=== PATIENT | female | born 1955 | race Caucasian/White ===

== ENCOUNTER 2024-10-23 04:36 | Emergency (ER) | payer MEDICARE, MEDICAID, SELFPAY ==
[2024-10-23] VITALS (9 sets, daily range): BP systolic 95–132; BP diastolic 57–81; PULSE 67–87; RESP 14–18; TEMP 36.5–37.3; O2SAT 94–100; BMI 33.5
--- NOTE | 2024-10-23 04:52 | EDNOTE_ITS ---
ED General RME/HPI General Chief complaint: Shortness of Breath/Dyspnea Stated complaint: SOB Time Seen by Provider: 10/23/24 04:49 Arrival date/time: 10/23/24 04:36 RME / HPI RME / HPI narrative: This section includes all my notes and documentations, including HPI, PE, and ED course. Steven Luz MD HPI: 69yo female with pmhx chronic respiratory failure with hypoxia, s/p tracheostomy, ventilator dependent, s/p G-tube placement, CHF, COPD brought in from subacute presents to the ED for a chief complaint of hypoxia. Per charge nurse, the patient was given Xanax 45 minutes ago and desatted to the 80s 20 minutes later and SNF staff was concerned, so they sent the patient over for evaluation. No cough, fever, chills or any other associated symptoms. No other complaints reported. ROS: Respiratory: negative except as documented in HPI. Gastrointestinal: negative except as documented in HPI. Genitourinary: negative except as documented in HPI. Musculoskeletal: negative except as documented in HPI. Skin: negative except as documented in HPI. Neurological: negative except as documented in HPI. Physical Exam: General: Alert and oriented. No acute distress. Eyes: Conjunctivae and lids clear. ENT: No nasal congestion. Neck: Supple. Heart: RRR. Lungs: No respiratory distress. Severely diminished air movement with scattered wheezing. Legs: No clubbing, cyanosis, edema. Skin: Warm and dry. Neuro: Alert and oriented X 3. I ordered Solu-Medrol and DuoNeb and diagnostic tests. At 6 AM, the care of the patient was transferred to Dr. Pena. Steven Luz MD Related Data Home Medications ?Medication ?Instructions ?Recorded ?Confirmed amiodarone 200 mg tablet 200 mg PO QDAY 02/14/24 06/30/24 famotidine 20 mg tablet 20 mg PO BID 02/14/24 06/30/24 midodrine 10 mg tablet 10 mg PO QID 02/14/24 06/30/24 acetaminophen 325 mg tablet 650 mg PO Q6H PRN Fever Or Pain 02/15/24 02/15/24 (Tylenol) alprazolam 0.5 mg tablet 0.5 mg PO Q8H PRN Anxiety 02/15/24 02/15/24 guaifenesin 100 mg/5 mL oral syrup 100 mg PO Q6H PRN Cough 02/15/24 06/30/24 ascorbic acid (vitamin C) 500 mg 500 mg PO BID 06/30/24 06/30/24 tablet (Vitamin C) bisacodyl 10 mg rectal suppository 10 mg PA QDAY PRN Constipation 06/30/24 06/30/24 (Dulcolax (bisacodyl)) budesonide 0.5 mg/2 mL suspension 0.5 mg inhalation BID 06/30/24 06/30/24 for nebulization (Pulmicort) guaifenesin 100 mg/5 mL oral 200 mg PO Q6H PRN Cough 06/30/24 06/30/24 liquid (Nilsa-Tussin) hydrocodone 5 mg-acetaminophen 325 1 tab PO Q8H PRN Pain 06/30/24 06/30/24 mg tablet ipratropium 0.5 mg-albuterol 3 mg 3 ml inhalation Q4H PRN Wheezing 06/30/24 06/30/24 (2.5 mg base)/3 mL nebulization soln multivitamin 1 tab PO QAM 06/30/24 06/30/24 ondansetron HCl 4 mg tablet 4 mg PO Q6H PRN Nausea 06/30/24 06/30/24 sennosides 8.6 mg tablet (senna) 8.6 mg PO BID 06/30/24 06/30/24 vitamin B complex 1 tab PO QDAY 06/30/24 06/30/24 Previous Rx's ?Medication ?Instructions ?Recorded cephalexin 500 mg capsule 500 mg PO QID #20 caps 08/11/24 Allergies Allergy/AdvReac Type Severity Reaction Status Date / Time No Known Allergies Allergy Verified 06/30/24 14:49 Review of Systems Review of Systems Systems Reviewed: All systems reviewed, normal except as documented ED Exam Narrative Physical exam: As noted in HPI. Course Course Course Narrative: CXR is ordered for determining the etiology of hypoxia. Quality Measures none Orders Category Date Time Status Bedside COVID-19 Antigen Test NOW Care 10/23/24 04:55 Active Bedside Influenza A&B Antigen Test NOW Care 10/23/24 04:55 Completed EKG (ED ONLY) *Do not use* NOW Care 10/23/24 04:55 Completed Saline [Insert IV] NOW Care 10/23/24 04:55 Active EKG (ED Only) Stat Exams 10/23/24 04:55 Draft XR chest 1V portable Stat Exams 10/23/24 04:55 Ordered ABG [Arterial Blood Gas] Stat Lab 10/23/24 05:12 Completed BNP [B-Type Natriuretic Peptide] Stat Lab 10/23/24 04:56 Ordered CBC Stat Lab 10/23/24 04:56 Ordered CMP [Comprehensive Metabolic Panel] Stat Lab 10/23/24 04:56 Ordered D-Dimer Stat Lab 10/23/24 04:56 Ordered Magnesium Stat Lab 10/23/24 04:56 Ordered Troponin I Stat Lab 10/23/24 04:56 Ordered UA [Urinalysis] Stat Lab 10/23/24 05:17 Ordered Albuterol/Ipratr Rt Maranda [Duoneb Rt Maranda] Med 10/23/24 04:55 Discontinued 3 ml INH X1 ONE MethylPREDNISolone.* [SoluMEDROL Inj] Med 10/23/24 04:55 Discontinued 125 mg IVP X1 ONE Mechanical [Volume Ventilator] Stat RT 10/23/24 Active Vital Signs Vital signs: Vital Signs Temperature 97.7 F 10/23/24 04:39 Pulse Rate 87 10/23/24 04:39 Respiratory Rate 16 10/23/24 04:39 Blood Pressure 132/75 H 10/23/24 04:39 Pulse Oximetry (%) 98 10/23/24 04:39 Oxygen Delivery Method Trach Collar 10/23/24 04:39 [facility] Patient data External records reviewed:: [facility] previous records (Per chart review, patient was seen here on 08/11/24 for UTI.) Clinical information provided by:: coremaker machine Social determinants that could affect healthcare access:: housing (Pt resides in subacute.) Patient has the following chronic illnesses:: hypoxia, s/p tracheostomy, ventilator dependent, s/p G-tube placement, CHF, COPD How is presenting disease/condition affected by chronic disease/condition?: exacerbated by Evaluation data The following diagnostics were reviewed and interpreted by me:: lab results, radiology exam(s) and EKG tracing(s) (My interpretation of the EKG is: Sinus rhythm (85 bpm) with nonspecific ST-T changes. Steven Luz MD) Lab and/or radiology exams considered but not ordered:: none Interpretation Summary: Pending Medications Medications considered but not ordered:: none Medication administrations:: Medication Administration History Discontinued Medications Albuterol/Ipratropium (Albuterol/Ipratropium (Duoneb) Rt Maranda 3 Ml Nebu) 3 ml INH X1 ONE Stop: 10/23/24 04:56 Last Admin: 10/23/24 05:07 Dose: 3 ml Documented By: JENNIFER Methylprednisolone Sodium Succinate (Methylprednisolone Sod Succ 62.5 Mg/Ml 2ml Vial) 125 mg IVP X1 ONE Stop: 10/23/24 04:56 Last Admin: 10/23/24 05:14 Dose: 125 mg Documented By: DEMETRIUS see above, if any Consultations Consultation(s) initiated? (list below): No Diagnosis Differential Diagnosis ED Complaint MDM: COPD, CHF, HI, pneumonia, COVID, influenza Most likely diagnosis given after review of the tests above:: Diagnostic test pending Admission Indicated Admission indicated?: not indicated Explain why admission is indicated or not indicated:: Diagnostic test pending Admission Request Was there a request for admission?: No Disposition Plan Disposition Plan: other (specify) (Diagnostic test pending) Medical Decision Making Differential Diagnosis Differential Diagnosis: COPD, CHF, HI, pneumonia, COVID, influenza Lab Data Labs: Lab Results 10/23/24 Range/Units 05:12 Puncture Site Left Radial ABG pH 7.37 (7.35-7.45) ABG pCO2 76 H* (32.0-48.0) mmHg ABG pO2 226 H (83-108) mmHg ABG HCO3 44 H (20-26) mEq/L ABG O2 Saturation 101 H (91-98) % ABG Base Excess 16 H (-3-3) FiO2 40 % Discharge Plan Prescriptions/Referrals Prescriptions/Med Rec: No Action multivitamin Tablet 1 tab PO QAM sennosides [senna] 8.6 mg Tablet 8.6 mg PO BID ipratropium-albuterol [DuoNeb] 0.5 mg-3 mg(2.5 mg base)/3 mL Solution For Nebulization 3 ml INHALATION Q4H PRN (Reason: Wheezing) hydrocodone-acetaminophen [[place]] 5-325 mg Tablet 1 tab PO Q8H PRN (Reason: Pain) ondansetron HCl [Zofran] 4 mg Tablet 4 mg PO Q6H PRN (Reason: Nausea) guaifenesin [Nilsa-Tussin] 100 mg/5 mL Liquid 200 mg PO Q6H PRN (Reason: Cough) ascorbic acid (vitamin C) [Vitamin C] 500 mg Tablet 500 mg PO BID bisacodyl [Dulcolax (bisacodyl)] 10 mg Suppository 10 mg PA QDAY PRN (Reason: Constipation) budesonide [Pulmicort] 0.5 mg/2 mL Suspension For Nebulization 0.5 mg INHALATION BID vitamin B complex Tablet 1 tab PO QDAY amiodarone 200 mg tablet 200 mg PO QDAY famotidine 20 mg tablet 20 mg PO BID midodrine 10 mg tablet 10 mg PO QID acetaminophen [Tylenol] 325 mg Tablet 650 mg PO Q6H PRN (Reason: Fever Or Pain) alprazolam 0.5 mg tablet 0.5 mg PO Q8H PRN (Reason: Anxiety) guaifenesin 100 mg/5 mL Syrup 100 mg PO Q6H PRN (Reason: Cough) cephalexin 500 mg capsule 500 mg PO QID Qty: 20 0RF Problem List Clinical Impression: Hypoxia Patient/Caregiver Discharge Instructions Print Language: Serbian
--- NOTE | 2024-10-23 04:55 | EKG_ITS ---
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
--- NOTE | 2024-10-23 04:55 | XR_ITS ---
Examination: AP chest single view Technique one AP portable supine chest single view Exam date and time: October 23, 2024 0528 hrs. Comparison 08/11/2024 Indications: Onset shortness of breath today. Findings: COPD with significant hyperexpansion and bullous change right apex Accentuation of bronchovascular markings, acute exacerbation COPD pattern Tracheostomy tube tip 7.6 cm above ayaan Normal heart size Impression: Acute exacerbation COPD pattern
[2024-10-23] MEDS: ALBUTEROL/IPRATROPIUM (Duoneb) RT SOL 3 ML NEBU INH (05:07)
[2024-10-23] MEDS: MethylPREDNISolone SOD SUCC 62.5 MG/ML 2ML VIAL 125 MG IVP (05:14)
[2024-10-23 05:16] LABS: Base Excess 16 (-3-3); HCO3 44 mEq/L (20-26); Inspired Oxygen, FIO2 40 %; O2 Saturation 101 % (91-98); PCO2 76 mmHg (32.0-48.0); PO2 226 mmHg (83-108); pH, Arterial 7.37 (7.35-7.45)
[2024-10-23 05:20] LABS: Allen Test Performed/OK; Puncture Site Left Radial
--- NOTE | 2024-10-23 05:38 | PC.NURSE ---
Pt bib SNF with c/o low O2 sats, per SNF staff, pt was given Xanax and 45 min later was noted to desat to the 80's. pt sats quickly return to 10 above 90% per rt at bedside, but staff were concerned and sent her to the ER. Pt presents on a ventilator via tracheostomy. Pt in NAD noted, at time of arrival to er. Respirations are even and unlabored. pt placed on aerospace manager. rt at bedside. pt updated on plan of care. call light within reach.
[2024-10-23 05:51] LABS: Collection Type, Urine Clean Catch; RBC,Urine 0 /hpf (0-3); Squamous Epithelial Cell,Urine 0 /hpf (0-5)
[2024-10-23 06:18] LABS: Basophils % (Auto) 0 % (0-2.5); Eosinophils # (Auto) 0.1 Thou/mm3 (0.0-0.5); Eosinophils % (Auto) 1 % (0-10); Hematocrit 28.2 % (36.0-46.0); Immature Granulocytes % (Auto) 1 % (0-0); Immature Granulocytes Auto 0.13 Thou/mm3 (0.00-0.00); Lymphocytes # (Auto) 0.9 Thou/mm3 (1.0-4.8); Lymphocytes % (Auto) 8 % (10-50); Mean Corpuscular HGB Conc 29.4 g/dl (31.0-37.0); Mean Corpuscular Hemoglobin 31.8 pg (25.0-35.0); Mean Corpuscular Volume 108 fL (80-100); Monocytes % (Auto) 10 % (0-12); Neutrophils # (Auto) 8.2 Thou/mm3 (1.8-7.7); Neutrophils % (Auto) 80 % (37-80); Nucleated Red Blood Cell % 0 /100 WBC (0); Platelet Count 185 Thou/mm3 (140-440); Red Blood Count 2.61 Miln/mm3 (4.00-5.20); White Blood Count 10.3 Thou/mm3 (3.6-11.0)
[2024-10-23 06:19] LABS: Hemoglobin 8.3 g/dL (12.0-16.0)
[2024-10-23 06:31] LABS: Bacteria,Urine 1+; Bilirubin,Urine Negative (Negative); Blood,Urine Negative (Negative); Clarity,Urine Turbid (Clear/Hazy); Color,Urine Yellow (Lt Yel-Yel); Glucose, Urine Negative (Negative); Ketones,Urine Negative (Negative); Leukocyte Esterase,Urine Positive (Negative); Nitrite,Urine Positive (Negative); PH,Urine 6.5 (5.0-7.0); Protein,Urine 1+ (Neg - Trace); Specific Gravity,Urine 1.018 (1.001-1.035); Urobilinogen,Urine Negative mg/dL (0.0-1.0); WBC,Urine 106 /hpf (0-5)
[2024-10-23 06:44] LABS: D-Dimer 1740 ng/mL (<600)
[2024-10-23 06:58] LABS: Alanine Aminotransferase 22 U/L (10-49); Albumin, Serum 4.3 gm/dL (3.4-4.8); Albumin/Globulin Ratio 1.2 (1.2-2.2); Alkaline Phosphatase 123 U/L (46-116); Anion Gap 3 (7-16); Aspartate Amino Transferase 35 U/L (0-34); BUN/Creatinine Ratio 22 Ratio (12-20); Blood Urea Nitrogen 13 mg/dL (9-23); Carbon Dioxide > 40.0 mMol/L (20.0-31.0); Chloride 94 mMol/L (98-107); Creatinine (Component) 0.6 mg/dL (0.6-1.3); Estimated Creatinine Clearance 70.6 mL/min (>60); Globulin 3.6 gm/dL (2.3-3.5); Glucose 130 mg/dL (74-106); Osmolality,Calculated 275 (275-295); Potassium 4.9 mMol/L (3.4-5.1); Sodium 137 mMol/L (136-145); Total Protein 7.9 gm/dL (5.7-8.2); Troponin I < 0.020 ng/mL (0.0-0.045); eGFR > 60 See Note
[2024-10-23 07:25] LABS: B-Type Natriuretic Peptide 123 pg/mL (0-100)
--- NOTE | 2024-10-23 07:42 | XR_ITS ---
Examination: CTA chest with intravenous contrast 2-D reconstructions 3-D reconstructions, vascular Date and time of exam: October 23, 2024 1133 hrs. Indications: Shortness of breath chest pain today elevated d-dimer, clinical diagnosis pulmonary emboli CTDI: vol (mGy) 8.2 DLP: (mGycm) 240 Technique: Multiple axial sections of the thorax have been obtained. 3 mm slice thickness, from below the hemidiaphragms to above the apices of the lungs. Mediastinal and lung density settings have been obtained. 2-D sagittal and coronal reconstructions. 3-D angiographic renderings, 3-D volume renderings, 3D post processing, vascular maximum intensity projections obtained. Contrast administered is 100 cc Isovue-370. Low dose protocols were performed. One or more of the following dose reduction techniques were used; automated exposure control, adjustment of the mA and/or KV according to patient size, use of iterative reconstruction technique. Findings: No thoracic aortic aneurysm dilatation No pulmonary artery emboli No paratracheal tracheobronchial or bronchopulmonary adenopathy Severe COPD with extensive bullous change at the right apex Mild pneumonia posterior right and left lung No visualized liver or splenic lesion Gallbladder is not visualized Kidneys partially visualized no hydronephrosis Moderate osteopenia Impression: Negative for pulmonary artery emboli COPD with prominent hyperexpansion and extensive bullous changes at the right apex Mild pneumonia both lungs
[2024-10-23 11:26] LABS: Bilirubin,Total 0.4 mg/dL (0.3-1.2)
== END 2024-10-23 13:35 | disposition skilled nursing facility (03) ==
PROVIDERS: Emergency Medicine; Emergency Provider Emergency Medicine; PCP Specialist
DX: R09.02 Hypoxemia (principal); R06.02 Shortness of breath; R07.9 Chest pain, unspecified; R94.31 Abnormal electrocardiogram [ECG] [EKG]
CPT/HCPCS: 36415; 36600; 71045; 71275; 80053; 81001; 82803; 83735; 83880; 84484; 85025; 85379; 87400; 87811; 93005; 94640; 96374; 99285; A4649; A9270; J2919; Q9967

== ENCOUNTER 2025-03-07 06:49 | Inpatient (IN) | payer MEDICARE, MEDICAID, SELFPAY ==
[2025-03-07] VITALS (100 sets, daily range): BP systolic 57–214; BP diastolic 35–129; PULSE 72–136; RESP 2–35; TEMP 35.7–36.1; O2SAT 99–100; BMI 18.3
--- NOTE | 2025-03-07 06:52 | XR_ITS ---
Examination: AP chest single view TECHNIQUE: AP portable supine chest single view Exam date and time: March 07, 2025 0734 hours Comparison January 30, 2025 INDICATIONS: Onset chest pain today. FINDINGS: Severe COPD with significant hyperexpansion and cavitary lesion versus bullous change at the right apex again noted compared with January 30, 2025 Tracheostomy tube tip 8.1 cm above Amanda Bronchitis pattern. No lobar pneumonia. Normal heart size IMPRESSION: COPD Cavitary lesion versus bullous change right apex again noted Tracheostomy tube tip 8.1 cm above Amanda
--- NOTE | 2025-03-07 06:52 | EKG_ITS ---
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: : 1955 Requested By: Deidra Cesar Order Number: [id number] Reading MD: Deidra Cesar Measurements Intervals [place] Rate: 125 P: CT: QRS: 91 QRSD: 118 T: 0 QT: 326 QTc: 471 Interpretive Statements ATRIAL FLUTTER/TACHYCARDIA WITH RAPID VENTRICULAR RESPONSE BORDERLINE RIGHT AXIS DEVIATION [QRS AXIS > 90] MODERATE INTRAVENTRICULAR CONDUCTION DELAY [110+ ms QRS DURATION] ST DEPRESSION, CONSIDER SUBENDOCARDIAL INJURY [0.1+ mV ST DEPRESSION] Compared to ECG 10/23/2024 05:22:47 Intraventricular conduction delay now present ST (T wave) deviation now present Sinus rhythm no longer present T-wave abnormality no longer present /store/S0/[id number]/[id number].pdf
--- NOTE | 2025-03-07 06:54 | PD.EDADDENDU ---
Emergency Room Addendum <Caitlin Doe - Last Filed: 03/07/25 13:07> Addendum Narrative: [id number]: Shannon emilia was called overhead at out subacute unit. I attended to the code. When I arrived RT told me that they arrived the tracheostomy was dislodged and patient was not being ventilated. Patient ROSC. Patient will come to the emergency department. PHYSICAL EXAM: GENERAL APPEARANCE: Unresponsive, on ventilator HEENT: Normocephalic, atraumatic; pupils 9 mm fixed, absent corneal reflex, lips cyanotic NECK: Supple LUNGS: No spontaneous respirations, ventilated via tracheostomy tube, breath sounds clear bilaterally with ventilation HEART: No pulse, no cardiac sounds, good pulse with CPR ABDOMEN: Mildly distended; soft EXTREMITIES:? atraumatic; cyanotic NEUROLOGIC: Obtunded, unresponsive, no response to painful stimuli SKIN: Cool, mottled, cyanotic <Deidra Castellanos MD - Last Filed: 03/08/25 16:49> Addendum Narrative: Responded to SHANNON DE LEON in subacute unit. CPR in progress by respiratory therapist. Per RT, when she arrived at bedside the tracheostomy was dislodged and patient was not being ventilated. See Code sheet for medication and rhythm details. ROSC. Patient will come to the emergency department. PHYSICAL EXAM: GENERAL APPEARANCE: Unresponsive, on ventilator HEENT: Normocephalic, atraumatic; pupils 9 mm fixed NECK: ventilated with bag via tracheostomy LUNGS: No spontaneous respirations, ventilated via tracheostomy tube, breath sounds clear bilaterally with ventilation HEART: No pulse, no cardiac sounds, good pulse with CPR ABDOMEN: Mildly distended; soft EXTREMITIES:? atraumatic; cyanotic NEUROLOGIC: Obtunded, unresponsive, no response to painful stimuli SKIN: Cool, pale, diaphoretic
--- NOTE | 2025-03-07 06:57 | PD.EDCPR ---
ED CPR RME/HPI General Chief Complaint: Cardiac Arrest/CPR Stated Complaint: SHANNON NIETO Time Seen by Provider: 03/07/25 06:52 Arrival date/time: 03/07/25 06:49 RME / HPI RME / HPI narrative: DR. CASTELLANOS MAIN ED EVALUATION: 70 year old female with past medical history significant for chronic respiratory failure secondary to COPD has tracheostomy, ventilator dependent, presents to the Emergency Department from our subacute unit with complaint of cardiac arrest, respiratory arrest. Shannon nieto was called at 0640 hours overhead at out subacute unit. See code note. Per RT at bedside in subacute, the tracheostomy was dislodged and patient was not being ventilated. RT replaced tracheostomy, began ventilating and CPR started. Patient arrives to ED post ROSC. Related Data Home Medications ?Medication ?Instructions ?Recorded ?Confirmed amiodarone 200 mg tablet 200 mg PO QDAY 02/14/24 06/30/24 famotidine 20 mg tablet 20 mg PO BID 02/14/24 06/30/24 midodrine 10 mg tablet 10 mg PO QID 02/14/24 06/30/24 acetaminophen 325 mg tablet 650 mg PO Q6H PRN Fever Or Pain 02/15/24 02/15/24 (Tylenol) alprazolam 0.5 mg tablet 0.5 mg PO Q8H PRN Anxiety 02/15/24 02/15/24 guaifenesin 100 mg/5 mL oral syrup 100 mg PO Q6H PRN Cough 02/15/24 06/30/24 ascorbic acid (vitamin C) 500 mg 500 mg PO BID 06/30/24 06/30/24 tablet (Vitamin C) bisacodyl 10 mg rectal suppository 10 mg ND QDAY PRN Constipation 06/30/24 06/30/24 (Dulcolax (bisacodyl)) budesonide 0.5 mg/2 mL suspension 0.5 mg inhalation BID 06/30/24 06/30/24 for nebulization (Pulmicort) guaifenesin 100 mg/5 mL oral 200 mg PO Q6H PRN Cough 06/30/24 06/30/24 liquid (Nilsa-Tussin) hydrocodone 5 mg-acetaminophen 325 1 tab PO Q8H PRN Pain 06/30/24 06/30/24 mg tablet ipratropium 0.5 mg-albuterol 3 mg 3 ml inhalation Q4H PRN Wheezing 06/30/24 06/30/24 (2.5 mg base)/3 mL nebulization soln multivitamin 1 tab PO QAM 06/30/24 06/30/24 ondansetron HCl 4 mg tablet 4 mg PO Q6H PRN Nausea 06/30/24 06/30/24 sennosides 8.6 mg tablet (senna) 8.6 mg PO BID 06/30/24 06/30/24 vitamin B complex 1 tab PO QDAY 06/30/24 06/30/24 Previous Rx's ?Medication ?Instructions ?Recorded cephalexin 500 mg capsule 500 mg PO QID #20 caps 08/11/24 cefdinir 250 mg/5 mL oral 300 mg (6 mL) PO Q12H 10 days #120 10/23/24 suspension mL cefdinir 250 mg/5 mL oral 600 mg (12 mL) PO QDAY #120 mL 10/23/24 suspension Allergies Allergy/AdvReac Type Severity Reaction Status Date / Time No Known Allergies Allergy Verified 03/07/25 07:43 Review of Systems Review of Systems ROS Unobtainable: unobtainable due to medical condition Past Medical History Past Medical History CARDIAC: Positive Atrial Fibrillation, Congestive Heart Failure and Hypotension RESPIRATORY: Positive Chronic Obstructive Pulmonary Disease (COPD) and Asthma GASTROINTESTINAL: Positive Gastrointestinal Disorders and Gastroesophageal Reflux Disease HEMATOLOGIC: Positive Blood Disorders and Anemia PSYCHO/SOCIAL: Positive Anxiety OTHER HISTORY: Positive Hospitalization Family History FAMILY HISTORY: Positive Family Cardiac Disorders Surgical History SURGICAL: Positive Tracheostomy and Gastrostomy Social History SMOKING STATUS: Never smoker SECOND HAND EXPOSURE: Yes SUBSTANCE USE: does not use ALCOHOL: Never ED Exam Narrative Physical exam: GENERAL APPEARANCE: Unresponsive, on ventilator HEENT: Normocephalic, atraumatic; pupils 2 mm, pupils equal, round, reactive to light; EOMI LUNGS: ventilated via tracheostomy tube, breath sounds clear bilaterally with ventilation, diminished breath sounds on the left HEART: Heart tachycardic ABDOMEN: non distended; soft EXTREMITIES:? atraumatic NEUROLOGIC: Obtunded, unresponsive SKIN: cool, diaphoretic, normal color; no rashes Course Course Course Narrative: 639: Shannon nieto was called overhead at out subacute unit. I attended to the code. When I arrived RT told me that they arrived the tracheostomy was dislodged and patient was not being ventilated. Patient ROSC. Patient will come to the emergency department. Quality Measures none Orders Category Date Time Status Admit to Inpatient Status Routine Admission 03/07/25 08:00 Active Patient Condition Routine Admission 03/07/25 08:00 Ordered Apply Skin Barrier Cream PRN Care 03/07/25 08:05 Active Apply JUDY Hose NOW Care 03/07/25 08:05 Active COVID-19 Screening Questionnaire NOW Care 03/07/25 08:01 Active Jewel Bearing Driller NOW Care 03/07/25 06:52 Active Decision to Admit X1 Care 03/07/25 08:01 Completed EKG (ED ONLY) *Do not use* NOW Care 03/07/25 06:52 Completed HOB Elevated prn Care 03/07/25 08:05 Active Notify provider NEEDED Care 03/07/25 08:00 Active Obtain weight DAILY Care 03/07/25 08:01 Active Oral Care As Needed .Q4H,PRN Care 03/07/25 08:05 Active Rotate Bed 60 degrees or great PRN Care 03/07/25 08:05 Active Sequential Compression Device NOW Care 03/07/25 08:05 Active Turn Q2H Q2H Care 03/07/25 08:15 Ordered Turn Q2H Q2H Care 03/07/25 10:15 Ordered Turn Q2H Q2H Care 03/07/25 12:15 Ordered Turn Q2H Q2H Care 03/07/25 14:15 Ordered Turn Q2H Q2H Care 03/07/25 16:15 Ordered Turn Q2H Q2H Care 03/07/25 18:15 Ordered Turn Q2H Q2H Care 03/07/25 20:15 Ordered Turn Q2H Q2H Care 03/07/25 22:15 Ordered Urinary Catheter NOW Care 03/07/25 08:05 Active Vital Signs, Non-Routine Q1H Care 03/07/25 08:15 Ordered Vital Signs, Non-Routine Q1H Care 03/07/25 09:15 Ordered Vital Signs, Non-Routine Q1H Care 03/07/25 10:15 Ordered Vital Signs, Non-Routine Q1H Care 03/07/25 11:15 Ordered Vital Signs, Non-Routine Q1H Care 03/07/25 12:15 Ordered Vital Signs, Non-Routine Q1H Care 03/07/25 13:15 Ordered Vital Signs, Non-Routine Q1H Care 03/07/25 14:15 Ordered Vital Signs, Non-Routine Q1H Care 03/07/25 15:15 Ordered Vital Signs, Non-Routine Q1H Care 03/07/25 16:15 Ordered Vital Signs, Non-Routine Q1H Care 03/07/25 17:15 Ordered Vital Signs, Non-Routine Q1H Care 03/07/25 18:15 Ordered Vital Signs, Non-Routine Q1H Care 03/07/25 19:15 Ordered Vital Signs, Non-Routine Q1H Care 03/07/25 20:15 Ordered Vital Signs, Non-Routine Q1H Care 03/07/25 21:15 Ordered Vital Signs, Non-Routine Q1H Care 03/07/25 22:15 Ordered Vital Signs, Non-Routine Q1H Care 03/07/25 23:15 Ordered Referral Registered Dietitian Routine Cons 03/07/25 08:05 Active EKG (ED Only) Stat Exams 03/07/25 06:52 Draft XR chest 1V portable Stat Exams 03/07/25 06:52 Completed XR chest 1V post procedure Stat Exams 03/07/25 08:05 Completed ABG [Arterial Blood Gas] Stat Lab 03/07/25 07:40 Completed Arterial Blood Gas AM DRAW Lab 03/08/25 04:19 Completed Arterial Blood Gas AM DRAW Lab 03/09/25 05:00 Ordered Arterial Blood Gas AM DRAW Lab 03/10/25 05:00 Ordered Arterial Blood Gas AM DRAW Lab 03/11/25 05:00 Ordered Arterial Blood Gas AM DRAW Lab 03/12/25 05:00 Ordered B-Type Natriuretic Peptide Stat Lab 03/07/25 06:40 Completed CBC Routine Lab 03/07/25 09:27 Completed CBC Stat Lab 03/07/25 06:40 Completed Comprehensive Metabolic Panel Stat Lab 03/07/25 06:40 Completed Lipase Stat Lab 03/07/25 06:40 Completed Magnesium Routine Lab 03/07/25 09:27 Completed Magnesium Stat Lab 03/07/25 06:40 Completed Partial Thromboplastin Time DAILY Lab 03/07/25 09:27 Completed Partial Thromboplastin Time Stat Lab 03/07/25 06:40 Completed Prothrombin Time with INR DAILY Lab 03/07/25 09:27 Completed Prothrombin Time with INR Stat Lab 03/07/25 06:40 Completed Sputum Culture and Gram Stain Stat Lab 03/07/25 07:40 Results Troponin I Stat Lab 03/07/25 06:40 Completed Acetaminophen Supp [Tylenol Supp] Med 03/07/25 08:00 Hold 650 mg ND Q4HR PRN Acetaminophen Tab [Tylenol Tab] Med 03/07/25 08:00 Hold 650 mg PO Q4HR PRN Heparin Inj Med 03/07/25 14:00 Active 5,000 unit SC Q8HR Milk Of Magnesia Susp [Mom Susp] Med 03/07/25 08:00 Active 30 ml PO QDAY PRN Nitroglycerin [Nitrostat 1/150] Med 03/07/25 08:00 Active 0.4 mg SL Q5MIN PRN Sodium Chloride Rt Maranda 10% [NS Rt Maranda 10%] Med 03/07/25 08:00 Discontinued 5 ml INH X1 ONE mg Hyd/Al Hyd/Natalee Susp [Maalox Susp] Med 03/07/25 08:00 Active 30 ml PO Q4HR PRN Code Status Routine Oth 03/07/25 08:00 Ordered Airway suctioning NEEDED RT 03/07/25 08:00 Active Ventilator Weaning Parameters Routine RT 03/07/25 08:05 Ordered Volume Ventilator Stat RT 03/07/25 07:30 Active Vital Signs Vital signs: Vital Signs Pulse Rate 107 H 03/07/25 06:51 Respiratory Rate 23 H 03/07/25 06:51 Blood Pressure 157/88 H 03/07/25 06:51 Pulse Oximetry (%) 100 03/07/25 06:51 Procedures -ED EKG Interpretation #1: Date of EK03/07/25 Time of EK:59 Rate: 125 Interpretation: Interpreted by me Additional EKG comment: atrial flutter, rate 125, borderline right axis deviation Cardiac Arrest / CPR MDM Narrative MDM Narrative:: ICaitlin am scribing for and in the presence of Dr. Castellanos. Patient data External records reviewed:: [facility] previous records (Reviewed last family practice routine note from Dr. Spring dated 03/02/25. ) Clinical information provided by:: other (specify) (nurse from subacute unit) Social determinants that could affect healthcare access:: housing (subacute unit) Patient has the following chronic illnesses:: chronic respiratory failure secondary to COPD has had tracheostomy, ventilator dependent, G tube in place, CHF, atrial fibrillation, and anemia How is presenting disease/condition affected by chronic disease/condition?: exacerbated by Evaluation data The following diagnostics were reviewed and interpreted by me:: radiology exam(s) (Chest x-ray AP portable interpreted by me: Small to moderate bilateral pleural effusions, right upper lobe cavitary lesion unchanged from prior x-ray 01/30/25, pacemaker, ? Right fourth and fifth rib fractures) Lab and/or radiology exams considered but not ordered:: none Interpretation Summary: Procedure(s): XR chest 1V post procedure Accession Number(s): [id number] cc: Edgard Sequeira MD; Wally Cox DO; Tico Salazar MD~ Examination: AP chest single view TECHNIQUE: AP portable upright chest single view Exam date and time: March 07, 2025 0828 hours Comparison March 07, 2025 0739 hours INDICATIONS: Verify tracheal tube position, SOB this week FINDINGS: Tracheostomy tube tip 9 cm above Amanda COPD with significant hyperexpansion and cavitary change versus bullous disease at the right apex Accentuation of bronchovascular markings. Normal heart size IMPRESSION: COPD Bullous change versus cavitary lesion in the right upper lobe Bronchiectasis Tracheostomy tube tip 9 cm above Amanda Dictated By: Edgard Sequeira MD Procedure(s): XR chest 1V portable Accession Number(s): [id number] cc: Edgard Sequeira MD; Tico Salazar MD; Deidra Castellanos MD~ Examination: AP chest single view TECHNIQUE: AP portable supine chest single view Exam date and time: March 07, 2025 0734 hours Comparison January 30, 2025 INDICATIONS: Onset chest pain today. FINDINGS: Severe COPD with significant hyperexpansion and cavitary lesion versus bullous change at the right apex again noted compared with January 30, 2025 Tracheostomy tube tip 8.1 cm above Amanda Bronchitis pattern. No lobar pneumonia. Normal heart size IMPRESSION: COPD Cavitary lesion versus bullous change right apex again noted Tracheostomy tube tip 8.1 cm above Amanda Dictated By: Edgard Sequeira MD Medications / Prescriptions Medications or Prescriptions considered but not ordered:: none Medication administrations:: Medication Administration History Acetaminophen (Acetaminophen 325 Mg Tablet) 650 mg PO Q4HR PRN PRN Reason: PAIN SCALE 1-3 (mild Stop: 04/06/25 07:59 Acetaminophen (Acetaminophen Supp 650 Mg Supp) 650 mg ND Q4HR PRN PRN Reason: PAIN SCALE 1-3 (mild Stop: 04/06/25 07:59 Al Hydrox/Mg Hydrox/Simethicone (Mg Hyd/Al Hyd/Natalee (Maalox Reg) Susp 30 Ml Udc) 30 ml PO Q4HR PRN PRN Reason: Heartburn or Upset Stomach Stop: 04/06/25 07:59 Albuterol/Ipratropium (Albuterol/Ipratropium (Duoneb) Rt Maranda 3 Ml Nebu) 3 ml INH Q4H PRN PRN Reason: SHORTNESS OF BREATH OR WHEEZE Stop: 04/06/25 16:44 Last Admin: 03/08/25 00:59 Dose: 3 ml Documented By: Admin: 03/07/25 16:52 Dose: 3 ml Documented By: GEOVANNY Cadexomer Iodine (Cadexomer Iodine Gel 40 Gm Tube) 0 gm TOP HS [facility] Stop: 03/14/25 20:59 Last Admin: 03/07/25 21:21 Dose: 1 applicatio Documented By: ANDREE Heparin Sodium (Porcine) (Heparin Sod Inj 5000 Unit/Ml Vial) 5,000 unit SC Q8HR LEODAN Stop: 03/21/25 13:59 Last Admin: 03/08/25 14:02 Dose: 5,000 unit Documented By: JAMAAL Co-signed By: SHILA Admin: 03/08/25 05:35 Dose: 5,000 unit Documented By: ANDREE Co-signed By: HERB Admin: 03/07/25 21:22 Dose: 5,000 unit Documented By: ANDREE Co-signed By: MUNA Admin: 03/07/25 13:51 Dose: 5,000 unit Documented By: SHILA Co-signed By: LEATHA Norepinephrine/Dextrose (Levophed In D5w 8mg/250ml) 8 mg in 250 mls @ 4.252 mls/hr IV .Q24H PRN; Protocol PRN Reason: PER PROTOCOL Stop: 04/06/25 08:32 Last Titration: 03/07/25 12:30 Dose: 0 mcg/kg/min, 0 mls/hr Documented By: Titration: 03/07/25 12:15 Dose: 0.02 mcg/kg/min, 1.701 mls/hr Documented By: Titration: 03/07/25 12:00 Dose: 0.04 mcg/kg/min, 3.402 mls/hr Documented By: Titration: 03/07/25 11:45 Dose: 0.06 mcg/kg/min, 5.103 mls/hr Documented By: Titration: 03/07/25 11:30 Dose: 0.08 mcg/kg/min, 6.804 mls/hr Documented By: Titration: 03/07/25 11:15 Dose: 0.1 mcg/kg/min, 8.505 mls/hr Documented By: Titration: 03/07/25 11:00 Dose: 0.12 mcg/kg/min, 10.206 mls/hr Documented By: Titration: 03/07/25 10:47 Dose: 0.14 mcg/kg/min, 11.907 mls/hr Documented By: Titration: 03/07/25 10:38 Dose: 0.16 mcg/kg/min, 13.608 mls/hr Documented By: Titration: 03/07/25 10:05 Dose: 0.16 mcg/kg/min, 13.608 mls/hr Documented By: Titration: 03/07/25 09:50 Dose: 0.16 mcg/kg/min, 13.608 mls/hr Documented By: Titration: 03/07/25 09:35 Dose: 0.16 mcg/kg/min, 13.608 mls/hr Documented By: Titration: 03/07/25 09:20 Dose: 0.16 mcg/kg/min, 13.608 mls/hr Documented By: Titration: 03/07/25 09:12 Dose: 0.16 mcg/kg/min, 13.608 mls/hr Documented By: Titration: 03/07/25 09:06 Dose: 0.16 mcg/kg/min, 13.608 mls/hr Documented By: Titration: 03/07/25 09:02 Dose: 0.16 mcg/kg/min, 13.608 mls/hr Documented By: Titration: 03/07/25 08:55 Dose: 0.14 mcg/kg/min, 11.907 mls/hr Documented By: Titration: 03/07/25 08:50 Dose: 0.12 mcg/kg/min, 10.206 mls/hr Documented By: Titration: 03/07/25 08:45 Dose: 0.1 mcg/kg/min, 8.505 mls/hr Documented By: Admin: 03/07/25 08:40 Dose: 0.05 mcg/kg/min, 4.252 mls/hr Documented By: AUDRA Piperacillin/Tazobactam/Dextrose (Zosyn) 3.375 gm in 50 mls @ 12.5 mls/hr IV Q8HR LEODAN Stop: 03/14/25 21:59 Last Admin: 03/08/25 14:02 Dose: 12.5 mls/hr Documented By: Infusion: 03/08/25 09:35 Dose: Infused Documented By: Admin: 03/08/25 05:35 Dose: 12.5 mls/hr Documented By: Infusion: 03/08/25 01:22 Dose: Infused Documented By: Admin: 03/07/25 21:22 Dose: 12.5 mls/hr Documented By: ANDREE Vancomycin/Sodium Chloride (Vancomycin/Ns 750 Mg Ivpb) 750 mg in 150 mls @ 120 mls/hr IV Q12H LEODAN; Protocol Stop: 03/14/25 21:59 Last Admin: 03/08/25 09:47 Dose: 120 mls/hr Documented By: Infusion: 03/07/25 22:36 Dose: Infused Documented By: Admin: 03/07/25 21:21 Dose: 120 mls/hr Documented By: ANDREE Fentanyl Citrate (Sublimaze Inj 2,500 Mcg/250 Ml Bag) 2,500 mcg in 250 mls @ 2.5 mls/hr IV .Q24H PRN; Protocol PRN Reason: PER PROTOCOL Stop: 03/12/25 13:33 Last Titration: 03/08/25 13:00 Dose: 175 mcg/hr, 17.5 mls/hr Documented By: Titration: 03/08/25 12:00 Dose: 175 mcg/hr, 17.5 mls/hr Documented By: Titration: 03/08/25 11:00 Dose: 175 mcg/hr, 17.5 mls/hr Documented By: Titration: 03/08/25 10:00 Dose: 175 mcg/hr, 17.5 mls/hr Documented By: Titration: 03/08/25 09:00 Dose: 175 mcg/hr, 17.5 mls/hr Documented By: Titration: 03/08/25 08:00 Dose: 175 mcg/hr, 17.5 mls/hr Documented By: Titration: 03/08/25 07:00 Dose: 175 mcg/hr, 17.5 mls/hr Documented By: Admin: 03/08/25 06:00 Dose: 175 mcg/hr, 17.5 mls/hr Documented By: RH Co-signed By: MLD Titration: 03/08/25 06:00 Dose: Infused Documented By: Titration: 03/08/25 05:00 Dose: 175 mcg/hr, 17.5 mls/hr Documented By: Titration: 03/08/25 04:00 Dose: 175 mcg/hr, 17.5 mls/hr Documented By: Titration: 03/08/25 03:00 Dose: 175 mcg/hr, 17.5 mls/hr Documented By: Titration: 03/08/25 02:00 Dose: 175 mcg/hr, 17.5 mls/hr Documented By: Titration: 03/08/25 01:00 Dose: 175 mcg/hr, 17.5 mls/hr Documented By: Titration: 03/08/25 00:00 Dose: 175 mcg/hr, 17.5 mls/hr Documented By: Titration: 03/07/25 23:00 Dose: 175 mcg/hr, 17.5 mls/hr Documented By: Titration: 03/07/25 22:00 Dose: 175 mcg/hr, 17.5 mls/hr Documented By: Titration: 03/07/25 21:00 Dose: 175 mcg/hr, 17.5 mls/hr Documented By: Titration: 03/07/25 20:00 Dose: 175 mcg/hr, 17.5 mls/hr Documented By: Titration: 03/07/25 19:15 Dose: 175 mcg/hr, 17.5 mls/hr Documented By: Titration: 03/07/25 19:00 Dose: 125 mcg/hr, 12.5 mls/hr Documented By: Titration: 03/07/25 18:00 Dose: 125 mcg/hr, 12.5 mls/hr Documented By: Titration: 03/07/25 17:00 Dose: 125 mcg/hr, 12.5 mls/hr Documented By: Titration: 03/07/25 16:00 Dose: 125 mcg/hr, 12.5 mls/hr Documented By: Titration: 03/07/25 15:34 Dose: 125 mcg/hr, 12.5 mls/hr Documented By: Titration: 03/07/25 15:00 Dose: 75 mcg/hr, 7.5 mls/hr Documented By: Titration: 03/07/25 14:00 Dose: 75 mcg/hr, 7.5 mls/hr Documented By: Admin: 03/07/25 13:44 Dose: 25 mcg/hr, 2.5 mls/hr Documented By: SHILA Co-signed By: LEATHA Magnesium Hydroxide (Milk Of Magnesia Susp 30 Ml Udc) 30 ml PO QDAY PRN PRN Reason: CONSTIPATION Stop: 04/06/25 07:59 Nitroglycerin (Nitroglycerin 0.4 Mg Subl Btl #25) 0.4 mg SL Q5MIN PRN PRN Reason: CHEST PAIN Pharmacy Consult (Vancomycin Pharmacy To Dose 1 Each Each) 1 each IV QDAY PRN PRN Reason: CONSULT Stop: 04/06/25 10:59 Discontinued Medications Fentanyl Citrate (Fentanyl Cit Inj 50 Mcg/Ml Amp 2ml) 50 mcg IVP X1 ONE Stop: 03/07/25 08:50 Last Admin: 03/07/25 10:15 Dose: 50 mcg Documented By: AUDRA Sodium Chloride (Ns) 1,000 mls @ 999 mls/hr IV .Q1H1M ONE Stop: 03/07/25 09:28 Last Admin: 03/07/25 08:39 Dose: 999 mls/hr Documented By: AUDRA Norepinephrine/Dextrose (Levophed In D5w 8mg/250ml) Confirm Administered Dose 8 mg in 250 mls @ ud IV .STK-MED ONE Stop: 03/07/25 08:24 Last Admin: 03/07/25 08:51 Dose: Not Given Documented By: AUDRA Non-Admin Reason: Duplicate Medication on eMAR Lactated Ringer's (Lactated Ringers) 500 mls @ 999 mls/hr IV .Q31M ONE Stop: 03/07/25 10:04 Last Admin: 03/07/25 15:08 Dose: Not Given Documented By: SHILA Non-Admin Reason: Cancelled by Provider Piperacillin/Tazobactam/Dextrose (Zosyn) 3.375 gm in 50 mls @ 100 mls/hr IV X1 ONE Stop: 03/07/25 11:29 Last Admin: 03/07/25 13:52 Dose: 100 mls/hr Documented By: SHILA Vancomycin/Sodium Chloride (Vancomycin/Ns 1 Gm Ivpb) 200 mls @ 120 mls/hr IV X1 ONE Stop: 03/07/25 12:39 Last Admin: 03/07/25 13:52 Dose: 120 mls/hr Documented By: SHILA Lactated Ringer's (Lactated Ringers) 500 mls @ 500 mls/hr IV .Q1H ONE Stop: 03/07/25 15:13 Last Admin: 03/07/25 14:47 Dose: 500 mls/hr Documented By: SHILA Sodium Chloride (Sodium Chloride Rt 10% 15 Ml Nebu) 5 ml INH X1 ONE Stop: 03/07/25 08:01 Last Admin: 03/07/25 09:31 Dose: Not Given Documented By: MOLINA Non-Admin Reason: Cancelled by Provider see above Consultations Consultation(s) initiated? (list below): Yes Consultation #1 (Physician, Specialty, Details): Discussed test HPI, PMHx, lab, radiology results and/or management with Dr. Christensen. Will admit for further evaluation and management. Accepts patient for admission. Time: 08:00 Diagnosis Cardiac arrest differential diagnosis: acute massive pulmonary embolism, acute respiratory failure and cardiac arrest Most likely diagnosis given after review of the tests above:: Cardiac arrest Admission Indicated Admission indicated?: indicated Admission Request Was there a request for admission?: Yes Admission Attestation Admission request attestation: Discussed case with [] from Hospitalist service regarding admission. Discussed patients ED course, exam findings, labs, and radiology results. The Hospitalist [agrees,declines] to accept the patient for admission. Disposition Plan Disposition Plan: Admit (ICU) Critical Care Time Critical Care Time Critical Care Time: Yes Total Critical Care Time (min.): 30 Attestation: The high probability of sudden, clinically significant deterioration in the patient?s condition required the highest level of my preparedness to intervene urgently. The services I provided to this patient were to treat and/or prevent clinically significant deterioration. Services included the following: chart data review, reviewing nursing notes and/or old charts, documentation time, architecture consultant collaboration regarding findings and treatment options, medication orders and management, direct patient care, vital sign assessments and ordering, interpreting and reviewing diagnostic studies and lab tests. Aggregate critical care time includes only time during which I was engaged in work directly related to the patient?s care, as described above, whether at bedside or elsewhere in the Emergency Department. It did not include time spent performing other reported procedures or the services of residents, students, nurses or physician assistants. Discharge Plan Plan Patient Disposition: Admit Acute Care w/in Hospital Problem List Clinical Impression: Cardiac arrest
[2025-03-07 07:03] LABS: Basophils # (Auto) 0.1 Thou/mm3 (0.0-0.2); Basophils % (Auto) 0 % (0-2.5); Eosinophils # (Auto) 0.6 Thou/mm3 (0.0-0.5); Eosinophils % (Auto) 3 % (0-10); Hematocrit 28.3 % (36.0-46.0); Immature Granulocytes % (Auto) 6 % (0-0); Immature Granulocytes Auto 1.12 Thou/mm3 (0.00-0.00); Lymphocytes # (Auto) 8.5 Thou/mm3 (1.0-4.8); Lymphocytes % (Auto) 46 % (10-50); Mean Corpuscular HGB Conc 28.3 g/dl (31.0-37.0); Mean Corpuscular Hemoglobin 31.7 pg (25.0-35.0); Mean Corpuscular Volume 112 fL (80-100); Monocytes # (Auto) 1.1 Thou/mm3 (0.0-0.8); Monocytes % (Auto) 6 % (0-12); Neutrophils # (Auto) 6.9 Thou/mm3 (1.8-7.7); Neutrophils % (Auto) 38 % (37-80); Nucleated Red Blood Cell # 0.05 Thou/mm3 (0.00-0.00); Nucleated Red Blood Cell % 0 /100 WBC (0); Platelet Count 243 Thou/mm3 (140-440); RDW Standard Deviation 65.4 fL (36.4-46.3); Red Blood Count 2.52 Miln/mm3 (4.00-5.20); White Blood Count 18.2 Thou/mm3 (3.6-11.0)
--- NOTE | 2025-03-07 07:16 | PC.NURSE ---
Received report from Esperanza and assumed care of patient. ROSC achieved after Code. Patient currently on ventilator through trach, is tachycardic and hypertensive. Alert to painful stimuli only.
[2025-03-07 07:17] LABS: INR 1.2 (0.9-1.3); Partial Thromboplastin Time 47.8 Seconds (22.0-36.0); Prothrombin Time 12.7 Seconds (9.0-12.2)
[2025-03-07 07:25] LABS: Alanine Aminotransferase 35 U/L (10-49); Albumin, Serum 3.3 gm/dL (3.4-4.8); Alkaline Phosphatase 164 U/L (46-116); Anion Gap 17 (7-16); Aspartate Amino Transferase 102 U/L (0-34); B-Type Natriuretic Peptide 340 pg/mL (0-100); BUN/Creatinine Ratio 11 Ratio (12-20); Bilirubin,Total 0.2 mg/dL (0.3-1.2); Blood Urea Nitrogen 9 mg/dL (9-23); Calcium 9.3 mg/dL (8.3-10.6); Calcium (Corrected) 9.9 mg/dL (8.5-10.1); Carbon Dioxide 24.8 mMol/L (20.0-31.0); Chloride 96 mMol/L (98-107); Creatinine (Component) 0.8 mg/dL (0.6-1.3); Globulin 3.3 gm/dL (2.3-3.5); Glucose 272 mg/dL (74-106); Lipase 25 U/L (12-53); Magnesium 2.5 mg/dL (1.6-2.6); Osmolality,Calculated 284 (275-295); Potassium 5.2 mMol/L (3.4-5.1); Sodium 138 mMol/L (136-145); Total Protein 6.6 gm/dL (5.7-8.2); Troponin I < 0.020 ng/mL (0.0-0.045); eGFR > 60 See Note
[2025-03-07 07:45] LABS: Base Excess 5 (-3-3); HCO3 33 mEq/L (20-26); Inspired Oxygen, FIO2 100 %; O2 Saturation 101 % (91-98); PCO2 68 mmHg (32.0-48.0); PO2 489 mmHg (83-108); pH, Arterial 7.29 (7.35-7.45)
[2025-03-07 07:46] LABS: Allen Test Not Performed; Puncture Site Left Brachial
--- NOTE | 2025-03-07 07:57 | PC.NURSE ---
Patient blood pressure low and dropping. Informed Dr Beverly and received verbal for 250ml bolus NS.
--- NOTE | 2025-03-07 08:05 | XR_ITS ---
Examination: AP chest single view TECHNIQUE: AP portable upright chest single view Exam date and time: March 07, 2025 0828 hours Comparison March 07, 2025 0739 hours INDICATIONS: Verify tracheal tube position, SOB this week FINDINGS: Tracheostomy tube tip 9 cm above Amanda COPD with significant hyperexpansion and cavitary change versus bullous disease at the right apex Accentuation of bronchovascular markings. Normal heart size IMPRESSION: COPD Bullous change versus cavitary lesion in the right upper lobe Bronchiectasis Tracheostomy tube tip 9 cm above Amanda
[2025-03-07] MEDS: SODIUM CHLORIDE 0.9% 1000 ML 1,000 ML 999 ML IV (08:39)
[2025-03-07] MEDS: Norepinephrine/D5W 8mg/250ml 8 MG/250 ML BAG 4.252 MG IV (08:40)
--- NOTE | 2025-03-07 08:47 | PC.RT ---
PER ABG RESULTS VOLUME INCREASED TO 425 AND FIO2 DECREASED TO 50%. DR KIRKLAND AT BEDSIDE. WILL CONTINUE TO MONITOR
--- NOTE | 2025-03-07 09:34 | ECHO_ITS ---
Transthoracic Echo Report Ht (in): 58 Wt (lb): 90 Exam Location: [facility] Status: Inpatient Power System Dispatcher: ALEKSANDER Cabrera^^^^ Indications: Procedure Performed: BP: 123 / 67 HR: 84 Technical Quality: Fair MEASUREMENT (Male / Female) Normal Values S 2D ECHO LV Diastolic Diameter PLAX 3.8 cm 4.2 - 5.9 / 3.9 - 5.3 cm LV Systolic Diameter PLAX 2.5 cm IVS Diastolic Thickness 0.7 cm 0.6 - 1.0 / 0.6 - 0.9 cm LVPW Diastolic Thickness 0.9 cm 0.6 - 1.0 / 0.6 - 0.9 cm LV Relative Wall Thickness 0.4 LVOT Diameter 1.8 cm Aortic Root Diameter 3.1 cm LA Systolic Diameter LX 2.5 cm 3.0 - 4.0 / 2.7 - 3.8 cm LV Ejection Fraction MOD 4C 62.1 % LV Cardiac Index MOD 4C 4041.6 cm?/min?m? LV Ejection Fraction 4C AL 63.4 % LV Cardiac Index 4C AL 4291.9 cm?/min?m? LA Volume Index 24.1 cm?/m? 16 - 28 cm?/m? DOPPLER AV Peak Velocity 140.0 cm/s AV Peak Gradient 7.8 mmHg AV Mean Gradient 4.0 mmHg AV Velocity Time Integral 23.1 cm AI Peak Velocity 334.0 cm/s AI Peak Gradient 44.6 mmHg AI Pressure Half Time 489.0 ms LVOT Peak Velocity 72.4 cm/s LVOT Peak Gradient 2.1 mmHg LVOT Velocity Time Integral 14.8 cm LVOT Cardiac Index 2451.1 cm?/min?m? AV Area Cont Eq vti 1.6 cm? AV Area Cont Eq pk 1.3 cm? MV Area PHT 3.9 cm? MR Peak Velocity 509.5 cm/s MR Peak Gradient 103.8 mmHg Mitral E Point Velocity 63.5 cm/s Mitral A Point Velocity 58.7 cm/s Mitral E to A Ratio 1.1 LV E' Lateral Velocity 6.7 cm/s Mitral E to LV E' Lateral Ratio 9.5 LV E' Septal Velocity 6.0 cm/s Mitral E to LV E' Septal Ratio 10.5 TR Peak Velocity 292.0 cm/s TR Peak Gradient 34.1 mmHg FINDING S Left Ventricle Normal left ventricular size, wall thickness, systolic function. There is grade II diastolic dysfunction of the left ventricle (pseudonormal filling pattern). The left ventricular ejection fraction is normal, estimated at 55-60%. There is abnormal septal motion. Right Ventricle The right ventricle is normal in size and systolic function. The estimated right ventricular systolic pressure, 35 mmHg. Left Atrium The left atrium is normal by two-dimensional, color flow and Doppler imaging with no structural abnormalities, no thrombus formation present. Right Atrium The right atrium is normal by two-dimensional imaging, color flow and Doppler imaging with no structural abnormalities, no thrombus formation present. Atrial Septum The interatrial septum appears normal with no evidence of a shunt. Aorta The aorta is normal by two-dimensional, color flow and Doppler interrogation. Mitral Valve Mild thickening of the mitral valve leaflets. Moderate mitral regurgitation. Mild mitral annular calcification. Aortic Valve Calcification of the left coronary cusp. Mild thickening of the aortic valve leaflets. Mild aortic valve regurgitation. Findings consistent with vegetation on the left coronary cusp of the aortic valve. Tricuspid Valve There is mild tricuspid valve regurgitation. Pulmonic Valve Trivial pulmonic valve regurgitation. Vessels The pulmonary artery appears normal. The inferior vena cava pulmonary and hepatic veins appear normal. Pericardium The pericardium is normal by two-dimensional imaging. There is no significant pericardial effusion. CONCLUSION S Indication: Cardiac arrest Normal RV size and function with an estimated EF of 60 to 65%. Grade 1 diastolic dysfunction. Normal RV size and function with an estimated RVSP mildly elevated at 35 mmHg. Moderate MR with mild MAC as well as mild aortic valve calcification of the cusp right greater than left. Mild to moderate MR, mild TR, trace AI and mild PI. No evidence of any pericardial effusion. Luis Enrique Fried (Electronically Signed) Final Date: 07 March 2025 21:05
[2025-03-07 09:39] LABS: Basophils % (Auto) 0 % (0-2.5); Eosinophils # (Auto) 0.2 Thou/mm3 (0.0-0.5); Eosinophils % (Auto) 1 % (0-10); Hematocrit 24.8 % (36.0-46.0); Immature Granulocytes % (Auto) 2 % (0-0); Immature Granulocytes Auto 0.45 Thou/mm3 (0.00-0.00); Lymphocytes # (Auto) 1.3 Thou/mm3 (1.0-4.8); Lymphocytes % (Auto) 6 % (10-50); Mean Corpuscular HGB Conc 30.2 g/dl (31.0-37.0); Mean Corpuscular Hemoglobin 32.2 pg (25.0-35.0); Mean Corpuscular Volume 106 fL (80-100); Monocytes # (Auto) 0.9 Thou/mm3 (0.0-0.8); Monocytes % (Auto) 5 % (0-12); Neutrophils # (Auto) 18.1 Thou/mm3 (1.8-7.7); Neutrophils % (Auto) 86 % (37-80); Nucleated Red Blood Cell # 0.02 Thou/mm3 (0.00-0.00); Nucleated Red Blood Cell % 0 /100 WBC (0); Platelet Count 279 Thou/mm3 (140-440); Red Blood Count 2.33 Miln/mm3 (4.00-5.20); White Blood Count 21.1 Thou/mm3 (3.6-11.0)
[2025-03-07 09:40] LABS: Hemoglobin 7.5 g/dL (12.0-16.0)
--- NOTE | 2025-03-07 09:48 | PC.NURSE ---
PT'S DAUGHTER CALLED FOR UPDATE. INFORMED THAT PT WILL BE ADMITTED TO ICU
[2025-03-07 09:58] LABS: INR 1.2 (0.9-1.3); Partial Thromboplastin Time 26.3 Seconds (22.0-36.0); Prothrombin Time 12.7 Seconds (9.0-12.2)
[2025-03-07] MEDS: fentaNYL CIT INJ 50 mCg/ML AMP 2ML IVP (10:15)
--- NOTE | 2025-03-07 10:18 | PC.LAC ---
Report given to Joy ZAMARRIPA ,
--- NOTE | 2025-03-07 10:54 | PD.RESPROC ---
Procedures Procedure Date / Time 03/07/25 8:50 Procedural Time Out Time out performed: yes Procedure Narrative Procedure Narrative: Attending attestation: I was present for entire procedure. Patient tolerated procedure well with no immediate complications. No significant blood loss. Arterial Line Indication(s): shock and other (post cardiac arrest) Informed consent obtained: procedure done urgently Time out done, and the following verified: correct patient, side and site, procedure, patient position and implants and/or equipment Size (Gauge): 20 Technique used: guide wire technique Post-Procedure: line sutured into place and dry sterile dressing placed Patient tolerated procedure: well EBL(ml): 8 Complications: none Site: right and radial Procedure comment: A time out was performed. My hands were washed immediately prior to the procedure. I wore a surgical cap, mask, sterile gown and sterile gloves throughout the procedure.The Right wrist was prepped using chlorhexidine scrub and draped in sterile fashion. The radial pulse was identified and the wrist was positioned in the usual fashion. Using the Arrow Radial Arterial Line Kit, a needle was inserted into the radial artery. Arterial blood was seen to pulsate in the flash chamber. The internal guidewire was advanced easily into the radial artery. The catheter was then advanced over the wire and the needle and wire were withdrawn. The catheter was sutured in place. A sterile opsite was placed over the catheter at the insertion site. The patient tolerated the procedure without any hemodynamic compromise. At the time of procedure completion, the catheter was connected to the environmental monitoring technician and calibrated. Appropriate waveform and blood pressure tracing was observed. Case discussed and supervised by attending Dr. Fermin Cramer MD PGY1
--- NOTE | 2025-03-07 11:00 | PD.RESHP ---
Documentation for date of: 03/07/25 HPI History of Present Illness History of present illness: 70 yo F with PMHx end stage COPD s/p tracheostomy, atrial fibrillation (on amidodarone), chronic anemia, presented from subacute after cardiac arrest and subsequent ROSC. For the past few months, trach tube exchanges have been difficult for RT to perform. Patient was referred to a general surgeon for tracheostomy revision however patient did not want to undergo operation. At subacute, she constantly has peak pressures in the 50's. This morning around 0600, her ventilator began alarming however it was assumed it was her peak pressure alarm again and patient was not assessed. RT went to bedside to assess patient and noticed no ETCO2 on the ventilator and patient was in asystole. Patient was taken off ventilator, bagged with no return of CO2 and compressions started. Jesus nieto called and emergency personnel from [facility] arrived. In the meantime, RT was able to recannulate the tracheostomy stoma and advance an endotracheal tube in. At this time, patient was down for approximately 18 minutes. CPR was performed for 8 minutes with a total of 3mg epinephrine given IV before ROSC was obtained. Pupils initially dilated to 9mm per ED physician. Patient was transported immediately to the ED at [facility] and ICU team was consulted. Pupils became reactive after ROSC. At initial assessment, patient had received 1L crystalloid bolus and was hypotensive in 60's/40's with MAP in low 50's. Levophed was ordered and started with good response. Review of Systems Review of Systems ROS Unobtainable: unobtainable due to mental status Past Medical History Past Medical History CARDIAC: Positive Atrial Fibrillation RESPIRATORY: Positive Respiratory Disorders and Chronic Obstructive Pulmonary Disease (COPD) (tracheostomy) GENITOURINARY: Positive Genitourinary Disorders (chronic indwelling Hunter catheter) HEMATOLOGIC: Positive Anemia Surgical History OTHER SURGICAL HX: tracheostomy Social History SMOKING STATUS: Former smoker Exam Vital Signs Temp Pulse Resp BP Pulse Ox O2 Del Method FiO2 96.2 F L 117 H 20 117/70 100 Mechanical Ventilation 40 03/07/25 09:56 03/07/25 10:02 03/07/25 09:56 03/07/25 09:56 03/07/25 10:02 03/07/25 09:56 03/07/25 10:02 Constitutional Constitutional: thin, cachectic and chronically ill appearing Routine HEENT Exam Head: Present normocephalic and atraumatic Eye: Present PERRL ENT: Present mucous membranes dry and nares patent Routine Neck Exam Neck: Present supple; Absent JVD Routine Respiratory Exam Respiratory: Present patient mechanically ventilated Comments: symmetric chest wall rise Routine Cardiovascular Exam Cardiovascular: Present irregularly irregular (in and out of afib and sinus); Absent JVD Routine Abdominal Exam Abdominal: Present soft; Absent distended Comments: PEG tube in place Routine Extremities Exam Extremities: Present pulses intact and normal capillary refill Routine Skin Exam Skin: Present intact and dry; Absent cyanosis Routine Neurological Exam Comments: Pupils equally reactive, nondilated, withdraws from painful stimuli, myoclonic jerking in face and tongue Results: Labs 03/10/25 04:59 03/10/25 13:25 Labs: Short CBC 03/07/25 03/07/25 Range/Units 06:40 09:27 WBC 18.2 H 21.1 H (3.6-11.0) Thou/mm3 Hgb 8.0 L 7.5 L (12.0-16.0) g/dL Hct 28.3 L 24.8 L (36.0-46.0) % Plt Count 243 D 279 D (140-440) Thou/mm3 BMP 03/07/25 06:40 Sodium 138 Potassium 5.2 H Chloride 96 L Carbon Dioxide 24.8 BUN 9 Creatinine 0.8 Glucose 272 H Calcium 9.3 Cardiac Enzymes 03/07/25 Range/Units 06:40 Troponin I < 0.020 (0.0-0.045) ng/mL Liver Function 03/07/25 Range/Units 06:40 Total Bilirubin 0.2 L (0.3-1.2) mg/dL AST 102 H (0-34) U/L ALT 35 (10-49) U/L Alkaline Phosphatase 164 H (46-116) U/L Albumin 3.3 L (3.4-4.8) gm/dL ABG Interpretation ABG results: 03/07/25 07:40 ABG pH 7.29 L ABG pCO2 68 H ABG pO2 489 H ABG HCO3 33 H ABG O2 Saturation 101 H ABG Base Excess 5 H Quality Measures Quality Measures VTE prophylaxis Advance care planning discussed with:: child Medications Home Medications and Allergies Home Medications ?Medication ?Instructions ?Recorded ?Confirmed ?Type amiodarone 200 mg tablet 200 mg PO QDAY 02/14/24 03/09/25 History famotidine 20 mg tablet 20 mg PO BID 02/14/24 03/09/25 History midodrine 10 mg tablet 10 mg PO QID 02/14/24 03/09/25 History acetaminophen 325 mg tablet 650 mg PO Q6H PRN Fever Or Pain 02/15/24 03/09/25 History (Tylenol) alprazolam 0.5 mg tablet 0.5 mg PO Q12H PRN Anxiety 02/15/24 03/09/25 History guaifenesin 100 mg/5 mL oral syrup 100 mg PO Q6H PRN Cough 02/15/24 03/09/25 History ascorbic acid (vitamin C) 500 mg 500 mg PO BID 06/30/24 03/09/25 History tablet (Vitamin C) bisacodyl 10 mg rectal suppository 10 mg [place] QDAY PRN Constipation 06/30/24 03/09/25 History (Dulcolax (bisacodyl)) budesonide 0.5 mg/2 mL suspension 0.5 mg inhalation BID 06/30/24 03/09/25 History for nebulization (Pulmicort) guaifenesin 100 mg/5 mL oral 200 mg PO Q6H PRN Cough 06/30/24 03/09/25 History liquid (Nilsa-Tussin) hydrocodone 5 mg-acetaminophen 325 1 tab PO Q8H PRN Pain 06/30/24 03/09/25 History mg tablet ipratropium 0.5 mg-albuterol 3 mg 3 ml inhalation Q4H PRN Wheezing 06/30/24 03/09/25 History (2.5 mg base)/3 mL nebulization soln multivitamin 1 tab PO QAM 06/30/24 03/09/25 History sennosides 8.6 mg tablet (senna) 8.6 mg PO BID 06/30/24 03/09/25 History vitamin B complex 1 tab PO QDAY 06/30/24 03/09/25 History aluminum-mag hydroxide-simethicone 30 ml PO DAILY 03/09/25 03/09/25 History 200 mg-200 mg-20 mg/5 mL oral susp (Nilsa-Lanta) bisacodyl 10 mg rectal suppository 10 mg [place] QDAY PRN constipation 03/09/25 03/09/25 History (Dulcolax (bisacodyl)) dextran 70-hypromellose 0.1 %-0.3 1 drp ophthalmic (eye) BID PRN dry 03/09/25 03/09/25 History % eye drops (GenTeal Tears Mild) eye(s) magnesium hydroxide 400 mg/5 mL 30 ml PO DAILY PRN constipation 03/09/25 03/09/25 History oral suspension (Milk of Magnesia) polyethylene glycol 3350 17 17 g PO QDAY PRN constipation 03/09/25 03/09/25 History gram/dose oral powder (Miralax) Allergies Allergy/AdvReac Type Severity Reaction Status Date / Time No Known Allergies Allergy Verified 03/07/25 07:43 Visit Medications Acetaminophen (Acetaminophen 325 Mg Tablet) 650 mg PO Q4HR PRN PRN Reason: PAIN SCALE 1-3 (mild Stop: 04/06/25 07:59 Acetaminophen (Acetaminophen Supp 650 Mg Supp) 650 mg [place] Q4HR PRN PRN Reason: PAIN SCALE 1-3 (mild Stop: 04/06/25 07:59 Al Hydrox/Mg Hydrox/Simethicone (Mg Hyd/Al Hyd/Natalee (Maalox Reg) Susp 30 Ml Udc) 30 ml PO Q4HR PRN PRN Reason: Heartburn or Upset Stomach Stop: 04/06/25 07:59 Heparin Sodium (Porcine) (Heparin Sod Inj 5000 Unit/Ml Vial) 5,000 unit SC Q8HR LEODAN Stop: 03/21/25 13:59 Norepinephrine/Dextrose (Levophed In D5w 8mg/250ml) 8 mg in 250 mls @ 4.252 mls/hr IV .Q24H PRN; Protocol PRN Reason: PER PROTOCOL Stop: 04/06/25 08:32 Last Titration: 03/07/25 09:12 Dose: 0.16 mcg/kg/min, 13.608 mls/hr Piperacillin/Tazobactam/Dextrose (Zosyn) 3.375 gm in 50 mls @ 12.5 mls/hr IV Q8HR LEODAN Stop: 03/14/25 21:59 Piperacillin/Tazobactam/Dextrose (Zosyn) 3.375 gm in 50 mls @ 100 mls/hr IV X1 ONE Stop: 03/07/25 11:29 Vancomycin/Sodium Chloride (Vancomycin/Ns 1 Gm Ivpb) 200 mls @ 120 mls/hr IV X1 ONE Stop: 03/07/25 12:39 Magnesium Hydroxide (Milk Of Magnesia Susp 30 Ml Udc) 30 ml PO QDAY PRN PRN Reason: CONSTIPATION Stop: 04/06/25 07:59 Nitroglycerin (Nitroglycerin 0.4 Mg Subl Btl #25) 0.4 mg SL Q5MIN PRN PRN Reason: CHEST PAIN Pharmacy Consult (Vancomycin Pharmacy To Dose 1 Each Each) 1 each IV QDAY PRN PRN Reason: CONSULT Stop: 04/06/25 10:59 Discontinued Medications Fentanyl Citrate (Fentanyl Cit Inj 50 Mcg/Ml Amp 2ml) 50 mcg IVP X1 ONE Stop: 03/07/25 08:50 Last Admin: 03/07/25 10:15 Dose: 50 mcg Sodium Chloride (Ns) 1,000 mls @ 999 mls/hr IV .Q1H1M ONE Stop: 03/07/25 09:28 Last Admin: 03/07/25 08:39 Dose: 999 mls/hr Lactated Ringer's (Lactated Ringers) 500 mls @ 999 mls/hr IV .Q31M ONE Stop: 03/07/25 10:04 Sodium Chloride (Sodium Chloride Rt 10% 15 Ml Nebu) 5 ml INH X1 ONE Stop: 03/07/25 08:01 Last Admin: 03/07/25 09:31 Dose: Not Given Assessment & Plan Plan 70 yo F with end stage COPD trach dependent, afib, presented after cardiac arrest at subacute facility with prolonged down 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 Subsequent 8 minutes of CPR with 3mg epinephrine administered - Etiology of code likely 2/2 hypercarbic hypoxic respiratory failure from trach migration - Maintain normothermia - Patient was hypotensive but now normotensive after transport to ICU. Levophed gtt titrated off Resp #End stage COPD s/p tracheostomy #Mechanically ventilated - TV 375, RR 22, FiO2 40% Endo - No acute issues GI - No acute issues, hold TF for now Renal #Sepsis 2/2 UTI - Chronic indwelling Hunter catheter had copious sediment and purulent appearing urine - Hunter exchange did not go smoothly, new Hunter expected to be clogged after insertion by RN. Bladder scan showed empty bladder. May need to be exchanged again if no flow - See ID section for UTI management MSK - No acute issues ID/heme #Sepsis 2/2 UTI - Zosyn 3.375mg q6hr (03/07 - ) - Vancomycin dosing per pharmacy (03/07 - ) #Chronic anemia - Hb 7.5 PPX GI: Hold for now DVT: Heparin 5000U SQ TF: Held for now Code status: Full, discussed plan of care with patient's son Attending Provider Attestation/Addendum Patient seen and examined with above resident, Wally Cox DO. I agree with the findings, assessment, and plan of care as documented except for any differences below. Patient postcardiac arrest at long-term facility. Suspected dislodgment of tracheostomy or chronic hypoxic/hypercapnic respiratory failure in the setting of advanced COPD. Patient is well-known to staff to dislodge and remove her tube previously. Review of ventilator in the subacute shows nearly 15 minutes of high peak pressure and suggesting for ventilation likely contributed prior to her respiratory and cardiac arrest. Tracheostomy was replaced by RT during ACLS with ROSC achieved with promptly thereafter. Total time appears to be nearly 28 minutes. She remains afebrile and will maintain normothermia for protection. No role for therapeutic hypothermia at this time point. Patient with grossly purulent Hunter, potential role of infection also present. Hunter was exchanged with initiation of IV antibiotics and sepsis could be an underlying etiology alternatively or compounding her loss of airway. Patient's son was at bedside and we did discuss goals of care, and he would like to continue to respect his mother wishes to remain full code. We did explain the significant potential for anoxic brain injury. We will send down for CT scan to assess for presence of cerebral edema given she continues to be hypertensive and have lack of central reflexes though this is the early. During which cerebral edema typically does complicate neurologic assessment with role of reversibility with good supportive care. Measures for treatment of cerebral edema will be initiated based on imaging results. Total critical care time: I personally spent 40 minutes for review of physiologic parameters, directing plan of care, coordination of care with other providers, and counseling patient's family at bedside. This is exclusive of time spent teaching housestaff or performing any separate billable procedures. Patient continues require critical care services for postcardiac arrest care with distributive shock, chronic hypoxic/hypercapnic respiratory failure, and sepsis secondary to urinary tract infection. She remains at high risk for further morbidity and mortality warranting close monitoring and care only available in the ICU.
--- NOTE | 2025-03-07 13:33 | PC.NURSE ---
MD Christensen made aware of increasing SBP in the 180's-190's. Per MD Christensen start a fentanyl drip with a RASS of 0.
[2025-03-07] MEDS: fentaNYL 2,500 MCG/250 ML BAG 2,500 MCG/250 ML BAG IV (13:44)
[2025-03-07] MEDS: HEPARIN SOD INJ 5000 UNIT/ML VIAL SC ×2 (13:51→21:22)
[2025-03-07] MEDS: VANCOMYCIN/NS 1 GM IVPB 200 ML IV (13:52)
[2025-03-07] MEDS: PIPER/TAZO 3.375 GM PREMIX 3.375 GM/50 ML BAG IV ×2 (13:52→21:22)
[2025-03-07] MEDS: RINGERS LACTATED 1000 ML 500 ML IV (14:47)
--- NOTE | 2025-03-07 14:55 | XR_ITS ---
Examination: CT brain head without contrast. 2-D sagittal coronal reconstructions Date and time of exam:March 07, 2025 11:10 PM Indications: Status post cardiac arrest CTDI: vol (mGy):51.6 DLP: (mGycm):1092 Technique: Multiple CT axial sections of the brain have been obtained, 5 mm slice thickness. Contrast has not been administered. 2-D sagittal, coronal reconstructions have been obtained Low dose protocols were performed. One or more of the following dose reduction techniques were used; automated exposure control, adjustment of the mA and/or KV according to patient size, use of iterative reconstruction technique. Findings: No significant ventricular enlargement. Small age indeterminate bilateral basal ganglia infarcts including right caudate nucleus which may be acute Intra-axial or extra-axial hemorrhage density is not seen. No mass effect or midline shift Basal cisterns are not remarkable. Fourth ventricle is midline. Cranial vault intact. Impression: Negative for acute hemorrhage, mass effect or midline shift Small age indeterminate bilateral basal ganglia infarcts As clinically warranted, brain MRI follow-up would best assess for acute ischemic anoxic change
--- NOTE | 2025-03-07 15:37 | PC.NURSE ---
Late entry: Pt arrived to the ICU unit at 1038. Pt was brought up with a baker catheter that was dated 02/12/25 baker was full of thick sediment. MD Hargrove was made aware, per the previous baker was discontinued and a new baker was placed without any complications. Pt's PEG tube also had a Dylan valve dated 02/12/25. Pt's PEG tube was cleansed with betadine swabs, split gauze applied and a new Dylan valve was attached.
[2025-03-07] MEDS: ALBUTEROL/IPRATROPIUM (Duoneb) RT SOL 3 ML NEBU INH (16:52)
[2025-03-07 18:17] LABS: Collection Type, Urine Catheter
[2025-03-07 18:43] LABS: Bacteria,Urine 3+; Bilirubin,Urine Negative (Negative); Blood,Urine 2+ (Negative); Color,Urine Yellow (Lt Yel-Yel); Glucose, Urine Negative (Negative); Ketones,Urine 1+ (Negative); Leukocyte Esterase,Urine Positive (Negative); Nitrite,Urine Negative (Negative); Protein,Urine 1+ (Neg - Trace); RBC,Urine 73 /hpf (0-3); Specific Gravity,Urine 1.012 (1.001-1.035); Squamous Epithelial Cell,Urine 4 /hpf (0-5); Urobilinogen,Urine Negative mg/dL (0.0-1.0); WBC,Urine 483 /hpf (0-5)
[2025-03-07 19:00] LABS: Clarity,Urine Turbid (Clear/Hazy)
[2025-03-07] MEDS: CADEXOMER IODINE GEL 40 GM TUBE TOP (21:21)
[2025-03-07] MEDS: VANCOMYCIN/NS 750 MG IVPB 750 MG/150 ML BAG 120 MG IV (21:21)
[2025-03-08] VITALS (32 sets, daily range): BP systolic 106–161; BP diastolic 49–77; PULSE 85–102; RESP 22–23; TEMP 36.2–36.6; O2SAT 98–100; BMI 16.8; BMI 16.9
[2025-03-08] MEDS: ALBUTEROL/IPRATROPIUM (Duoneb) RT SOL 3 ML NEBU INH (00:59)
[2025-03-08 04:34] LABS: Base Excess 8 (-3-3); HCO3 34 mEq/L (20-26); Inspired Oxygen, FIO2 40 %; O2 Saturation 100 % (91-98); PCO2 55 mmHg (32.0-48.0); PO2 122 mmHg (83-108); pH, Arterial 7.39 (7.35-7.45)
[2025-03-08 04:38] LABS: Allen Test Not Performed; Puncture Site Right Radial
[2025-03-08] MEDS: PIPER/TAZO 3.375 GM PREMIX 3.375 GM/50 ML BAG IV ×3 (05:35→21:07)
[2025-03-08] MEDS: HEPARIN SOD INJ 5000 UNIT/ML VIAL SC ×3 (05:35→21:07)
[2025-03-08] MEDS: fentaNYL 2,500 MCG/250 ML BAG 2,500 MCG/250 ML BAG 17.5 MCG IV ×2 (06:00→20:13)
[2025-03-08 06:09] LABS: Alanine Aminotransferase 80 U/L (10-49); Albumin, Serum 3.4 gm/dL (3.4-4.8); Albumin/Globulin Ratio 1.1 (1.2-2.2); Alkaline Phosphatase 233 U/L (46-116); Anion Gap 13 (7-16); Aspartate Amino Transferase 98 U/L (0-34); BUN/Creatinine Ratio 20 Ratio (12-20); Bilirubin,Total 0.4 mg/dL (0.3-1.2); Blood Urea Nitrogen 18 mg/dL (9-23); Calcium 8.3 mg/dL (8.3-10.6); Calcium (Corrected) 8.8 mg/dL (8.5-10.1); Carbon Dioxide 30.7 mMol/L (20.0-31.0); Chloride 99 mMol/L (98-107); Creatinine (Component) 0.9 mg/dL (0.6-1.3); Estimated Creatinine Clearance 41.1 mL/min (>60); Globulin 3.1 gm/dL (2.3-3.5); Glucose 72 mg/dL (74-106); Osmolality,Calculated 285 (275-295); Potassium 3.7 mMol/L (3.4-5.1); Sodium 143 mMol/L (136-145); Total Protein 6.5 gm/dL (5.7-8.2); eGFR > 60 See Note
[2025-03-08 07:23] LABS: Basophils % (Auto) 0 % (0-2.5); Eosinophils % (Auto) 0 % (0-10); Hematocrit 22.3 % (36.0-46.0); Immature Granulocytes % (Auto) 1 % (0-0); Immature Granulocytes Auto 0.11 Thou/mm3 (0.00-0.00); Lymphocytes % (Auto) 7 % (10-50); Mean Corpuscular HGB Conc 30.5 g/dl (31.0-37.0); Mean Corpuscular Hemoglobin 31.8 pg (25.0-35.0); Mean Corpuscular Volume 104 fL (80-100); Monocytes # (Auto) 0.9 Thou/mm3 (0.0-0.8); Monocytes % (Auto) 6 % (0-12); Neutrophils # (Auto) 12.6 Thou/mm3 (1.8-7.7); Neutrophils % (Auto) 86 % (37-80); Nucleated Red Blood Cell % 0 /100 WBC (0); Platelet Count 210 Thou/mm3 (140-440); RDW Standard Deviation 59.4 fL (36.4-46.3); Red Blood Count 2.14 Miln/mm3 (4.00-5.20); White Blood Count 14.6 Thou/mm3 (3.6-11.0)
[2025-03-08 07:29] LABS: Hemoglobin 6.8 g/dL (12.0-16.0)
[2025-03-08] MEDS: VANCOMYCIN/NS 750 MG IVPB 750 MG/150 ML BAG 120 MG IV (09:47)
--- NOTE | 2025-03-08 11:46 | PC.SS ---
Update: Patient is Trach/PEG. Feeding on hold. Patient is not receiving pressor support. Patient is afebrile. Fentanyl in place to control pain. Hunter catheter in place. Patient is from sub-acute unit.
--- NOTE | 2025-03-08 12:19 | PC.DIETICIAN ---
Nutrition Prescription: 1) If oral intake is feasible: consider dysphagia 3 advanced PO with Prostat SF BID with breakfast and dinner via G-Tube. 2) If EN is initiated: consider Trophic feeds of Vital 1.2 at 20 ml/hr hrs via GT by pump. When indicated by MD, consider advancing 10 ml every 8 hrs to goal rate of 45 ml/hr x 24 hrs.If no IV fluids, water flushes of 30 ml/hr (or as recommended by MD). 3) Consider PPN/TPN if pt is NPO >5 days.
--- NOTE | 2025-03-08 16:21 | PC.SS ---
TELEGRAPH OFFICE MANAGER attempted phone contact with the patient's son, Francisco Javier Blakely ; to conduct initial assessment. No response, TELEGRAPH OFFICE MANAGER left voicemail requesting return call.
--- NOTE | 2025-03-08 16:55 | PD.RESPRO ---
Documentation for date of: 03/08/25 Subjective Subjective Interval history: 70 yo F with PMHx end stage COPD s/p tracheostomy, atrial fibrillation (on amidodarone), chronic anemia, presented from subacute after cardiac arrest and subsequent ROSC. For the past few months, trach tube exchanges have been difficult for RT to perform. Patient was referred to a general surgeon for tracheostomy revision however patient did not want to undergo operation. At subacute, she constantly has peak pressures in the 50's. This morning around 0600, her ventilator began alarming however it was assumed it was her peak pressure alarm again and patient was not assessed. RT went to bedside to assess patient and noticed no ETCO2 on the ventilator and patient was in asystole. Patient was taken off ventilator, bagged with no return of CO2 and compressions started. Jesus nieto called and emergency personnel from [place] ED arrived. In the meantime, RT was able to recannulate the tracheostomy stoma and advance an endotracheal tube in. At this time, patient was down for approximately 18 minutes. CPR was performed for 8 minutes with a total of 3mg epinephrine given IV before ROSC was obtained. Pupils initially dilated to 9mm per ED physician. Patient was transported immediately to the ED at [place] and ICU team was consulted. Pupils became reactive after ROSC. At initial assessment, patient had received 1L crystalloid bolus and was hypotensive in 60's/40's with MAP in low 50's. Levophed was ordered and started with good response. 03/08: No acute overnight events, CT head done yesterday no hemorrhage, old basal ganlgia infarcts. Patient withdaws to pain, corneal reflex present, unclear if she opens eyes purposefully to voice command. We will give another 24 hrs to reevaluate mental status post cardiac arrest. She's been off levophed for 24 hrs. Oliguric made 300 cc overnight. Exam Vital Signs Temp Pulse Resp BP Pulse Ox O2 Del Method FiO2 97.8 F 92 22 H 138/69 H 100 Mechanical Ventilation 40 03/08/25 16:00 03/08/25 16:00 03/08/25 12:00 03/08/25 16:00 03/08/25 16:00 03/07/25 09:56 03/08/25 16:00 Narrative Exam GENERAL: Chronically ill appearing, cachectic, trached and ventilated patient HEENT: Normocephalic, atraumatic and nontender.? Pupils sluggish reactive to light NECK: Supple without adenopathy. Tracheea midline, tracheostomy in place CHEST: Heart rate and rythm normal, no murmurs, gallops auscultated. S1 & 2 normal insensity. Nontender on palpation, no deformity and no crepitus. LUNGS: Lung sounds are clear.? No wheezing, rales or ronchi.? Mechanically ventilated ABDOMEN: Soft,symmetric , Bowel sounds are normoactive in all 4 quadrants. EXTREMITIES: No pitting edema.? No cyanosis.? Withdraws to pain SKIN: No rashes noted. NEURO: withdaws to pain, corneal reflex present, unclear if she opens eyes purposefully to voice command. Objective Labs 03/09/25 04:39 03/09/25 04:39 Labs: Laboratory Results - last 24 hr 03/07/25 03/08/25 03/08/25 18:08 04:19 04:42 WBC RBC Hgb Hct MCV MCH MCHC RDW Std Deviation Plt Count Neut % (Auto) Lymph % (Auto) Jenkins % (Auto) Eos % (Auto) Baso % (Auto) Neut # (Auto) Lymph # (Auto) Jenkins # (Auto) Eos # (Auto) Baso # (Auto) Immature Gran # (Auto) Absolute Nucleated RBC Immature Gran % Nucleated RBC % Puncture Site Right Radial ABG pH 7.39 D ABG pCO2 55 H D ABG pO2 122 H D ABG HCO3 34 H ABG O2 Saturation 100 H ABG Base Excess 8 H FiO2 40 Sodium 143 Potassium 3.7 D Chloride 99 Carbon Dioxide 30.7 Anion Gap 13 BUN 18 Creatinine 0.9 Estim Creat Clear Calc 41.1 L eGFR > 60 BUN/Creatinine Ratio 20 Glucose 72 L D Calculated Osmolality 285 Calcium 8.3 Corrected Calcium 8.8 Total Bilirubin 0.4 AST 98 H ALT 80 H Alkaline Phosphatase 233 H D Total Protein 6.5 Albumin 3.4 Globulin 3.1 Albumin/Globulin Ratio 1.1 L Ur Collection Type Catheter Urine Color Yellow Urine Clarity Turbid A Urine pH 8.0 H Ur Specific [place] 1.012 Urine Protein 1+ A Urine Glucose (UA) Negative Urine Ketones 1+ A Urine Blood 2+ A Urine Nitrite Negative Urine Bilirubin Negative Urine Urobilinogen (Auto) Negative Ur Leukocyte Esterase Positive Urine RBC 73 H Urine WBC 483 H Ur Squamous Epith Cells 4 Urine Bacteria 3+ A Blood Type Antibody Screen Crossmatch Blood Bank Wristband ID 03/08/25 03/08/25 06:56 08:24 WBC 14.6 H D RBC 2.14 L Hgb 6.8 L* Hct 22.3 L MCV 104 H MCH 31.8 MCHC 30.5 L RDW Std Deviation 59.4 H Plt Count 210 D Neut % (Auto) 86 H Lymph % (Auto) 7 L Jenkins % (Auto) 6 Eos % (Auto) 0 Baso % (Auto) 0 Neut # (Auto) 12.6 H Lymph # (Auto) 1.0 Jenkins # (Auto) 0.9 H Eos # (Auto) 0.0 Baso # (Auto) 0.0 Immature Gran # (Auto) 0.11 H Absolute Nucleated RBC 0.00 Immature Gran % 1 H Nucleated RBC % 0 Puncture Site ABG pH ABG pCO2 ABG pO2 ABG HCO3 ABG O2 Saturation ABG Base Excess FiO2 Sodium Potassium Chloride Carbon Dioxide Anion Gap BUN Creatinine Estim Creat Clear Calc eGFR BUN/Creatinine Ratio Glucose Calculated Osmolality Calcium Corrected Calcium Total Bilirubin AST ALT Alkaline Phosphatase Total Protein Albumin Globulin Albumin/Globulin Ratio Ur Collection Type Urine Color Urine Clarity Urine pH Ur Specific [place] Urine Protein Urine Glucose (UA) Urine Ketones Urine Blood Urine Nitrite Urine Bilirubin Urine Urobilinogen (Auto) Ur Leukocyte Esterase Urine RBC Urine WBC Ur Squamous Epith Cells Urine Bacteria Blood Type O Positive Antibody Screen NEGATIVE Crossmatch See Detail Blood Bank Wristband ID Yes ABG Interpretation ABG results: 03/07/25 03/08/25 07:40 04:19 ABG pH 7.29 L 7.39 D ABG pCO2 68 H 55 H D ABG pO2 489 H 122 H D ABG HCO3 33 H 34 H ABG O2 Saturation 101 H 100 H ABG Base Excess 5 H 8 H Quality Measures Quality Measures VTE prophylaxis Advance care planning discussed with:: patient Assessment & Plan Assessment Current Active Medications: Generic Name Dose Route Start Last Admin Trade Name Freq PRN Reason Stop Dose Admin Acetaminophen 650 mg 03/07/25 08:00 Acetaminophen 325 Mg Tablet PO 04/06/25 07:59 Q4HR PRN PAIN SCALE 1-3 (mild Acetaminophen 650 mg 03/07/25 08:00 Acetaminophen Supp 650 Mg Supp NM 04/06/25 07:59 Q4HR PRN PAIN SCALE 1-3 (mild Al Hydrox/Mg Hydrox/Simethicone 30 ml 03/07/25 08:00 Mg Hyd/Al Hyd/Natalee (Maalox Reg) Susp 30 Ml Udc PO 04/06/25 07:59 Q4HR PRN Heartburn or Upset Stomach Albuterol/Ipratropium 3 ml 03/07/25 16:45 03/08/25 00:59 Albuterol/Ipratropium (Duoneb) Rt Maranda 3 Ml Nebu INH 04/06/25 16:44 3 ml Q4H PRN Administration SHORTNESS OF BREATH OR WHEEZE Cadexomer Iodine 0 gm 03/07/25 21:00 03/07/25 21:21 Cadexomer Iodine Gel 40 Gm Tube TOP 03/14/25 20:59 1 applicatio HS LEODAN Administration Heparin Sodium (Porcine) 5,000 unit 03/07/25 14:00 03/08/25 14:02 Heparin Sod Inj 5000 Unit/Ml Vial SC 03/21/25 13:59 5,000 unit Q8HR LEODAN Administration Norepinephrine/Dextrose 8 mg in 250 mls @ 4.252 mls/hr 03/07/25 08:33 03/07/25 12:30 Levophed In D5w 8mg/250ml IV 04/06/25 08:32 0 mcg/kg/min .Q24H PRN 0 mls/hr PER PROTOCOL Titration Protocol 0.05 MCG/KG/MIN Piperacillin/Tazobactam/Dextrose 3.375 gm in 50 mls @ 12.5 mls/hr 03/07/25 22:00 03/08/25 14:02 Zosyn IV 03/14/25 21:59 12.5 mls/hr Q8HR LEODAN Administration Vancomycin/Sodium Chloride 750 mg in 150 mls @ 120 mls/hr 03/07/25 22:00 03/08/25 09:47 Vancomycin/Ns 750 Mg Ivpb IV 03/14/25 21:59 120 mls/hr Q12H LEODAN Administration Protocol Fentanyl Citrate 2,500 mcg in 250 mls @ 2.5 mls/hr 03/07/25 13:34 03/08/25 13:00 Sublimaze Inj 2,500 Mcg/250 Ml Bag IV 03/12/25 13:33 175 mcg/hr .Q24H PRN 17.5 mls/hr PER PROTOCOL Titration Protocol 25 MCG/HR Magnesium Hydroxide 30 ml 03/07/25 08:00 Milk Of Magnesia Susp 30 Ml Udc PO 04/06/25 07:59 QDAY PRN CONSTIPATION Nitroglycerin 0.4 mg 03/07/25 08:00 Nitroglycerin 0.4 Mg Subl Btl #25 SL Q5MIN PRN CHEST PAIN Pharmacy Consult 1 each 03/07/25 11:00 Vancomycin Pharmacy To Dose 1 Each Each IV 04/06/25 10:59 QDAY PRN CONSULT Plan [facility]SP[facility]IL[facility] #Acute encephalopathy following cardiac arrest with prolonged down time -Patient withdraws from painful stimuli -Corneal reflexes present -Opens eyes spontaneouly, still unclear if it is a response to voice command -Head CT no hemorrhage, old basal ganlgia infarcts. -We will revaluate for hypoxic brain injury tomorrow CV #status post cardiac arrest #Afib #hypotension, resolved - Patient down for 18 minutes prior to CPR initiation. Subsequent 8 minutes of CPR with 3mg epinephrine administered - Etiology of code likely 2/2 hypercarbic hypoxic respiratory failure from trach migration - Maintain normothermia - Patient was hypotensive but now normotensive after transport to ICU. Levophed gtt off for 24 hrs Resp #End stage COPD s/p tracheostomy #Mechanically ventilated - TV 375, RR 22, FiO2 40% Endo - No acute issues GI - No acute issues, hold TF for now Renal #Sepsis 2/2 UTI - Chronic indwelling Hunter catheter had copious sediment and purulent appearing urine - Hunter exchange did not go smoothly, new Hunter expected to be clogged after insertion by RN. Bladder scan showed empty bladder. May need to be exchanged again if no flow - See ID section for UTI management MSK - No acute issues ID/heme #Sepsis 2/2 UTI - Zosyn 3.375mg q6hr (03/07 - ) - Vancomycin dosing per pharmacy (03/07 - ) -Pending urine culture results #Chronic anemia - Hb 7.5 Disposition: Patient admitted to ICU post cardiac arrest Diet and fluids:NPO DVT prophylaxis:Heparin GI prophylaxis:None CODE STATUS: Full, discussed plan of care with patient's son Hunter:In place Lines:Peripheral Patient's care discussed with attending physician, Dr Fermin Nunez MD PGY3 Attending Provider Attestation/Addendum Patient seen and examined with above resident, Tamar Nunez MD. I agree with the findings, assessment, and plan of care as documented except for any differences below. Overnight CT scan shows no significant cerebral edema though there is suggestion of possible old basal ganglia infarct. Patient's mentation slightly improved she seems to be opening her eyes spontaneously with cranial nerve reflexes intact. Patient stable on current ventilator settings with lung protection ensured. Patient will be taken off fentanyl drip today to assess for improvement in mentation noted this may be limited still in the post cardiac arrest phase. She has been without fever and we have been able to maintain normothermia. Patient no longer in shock. Was briefly on Levophed yesterday. Patient's son was updated at bedside. Will continue to monitor closely with plan for repeat imaging in coming days if she does not show continued improvement or plateaus. No need for EEG as there is no evidence of seizure activity or myoclonus at this point. Patient will monitor closely in the intensive care unit today. Will initiate tube feedings. Complete course of antibiotics for complicated urinary tract infection. Will follow-up cultures to determine ability to narrow. Total critical care time: I personally spent 35 minutes for review of physiologic parameters, directing plan of care throughout the day, and counseling the patient's family at bedside. This is exclusive of time spent teaching housestaff or performing any separate billable procedures. Patient continues require critical care services for postcardiac arrest and anoxic encephalopathy. Remains at high risk for further morbidity and mortality warranting close monitoring and care only available in the intensive care unit.
--- NOTE | 2025-03-08 17:06 | PC.SS ---
OIM CONSULTANT conducted phone contact with patient? sonFrancisco Javier ; to conduct initial assessment.? Patient is a resident of sub-acute unit.? Patient is Trach/PEG.? Patient admitted to ICU due to cardiac arrest/respiratory arrest. ?Chart review indicates that the patient?s tracheostomy was dislodged and patient was not being ventilated.? [facility].? Patient?s surrogate medical decision maker is Francisco Javier jane.? Sub-acute physician is Dr. Salazar.? Upon patient meeting criteria for medical clearance discharge, plan is for the patient to return to sub-acute unit.? No further intervention required at this time, social contact worker will be available to address any further concerns.? Next of Kin: Francisco Javier Blakely D/C Plan: Sub-Acute
[2025-03-08] MEDS: CADEXOMER IODINE GEL 40 GM TUBE TOP (20:08)
[2025-03-08 23:06] LABS: Vancomycin,Trough 21.3 mcg/mL (5.0-10.0)
[2025-03-09] VITALS (32 sets, daily range): BP systolic 122–215; BP diastolic 60–112; PULSE 89–129; RESP 19–24; TEMP 36.9–37.3; O2SAT 95–100; BMI 17.0
[2025-03-09 04:49] LABS: Base Excess 3 (-3-3); HCO3 29 mEq/L (20-26); Inspired Oxygen, FIO2 40 %; O2 Saturation 100 % (91-98); PCO2 53 mmHg (32.0-48.0); PO2 133 mmHg (83-108); pH, Arterial 7.35 (7.35-7.45)
[2025-03-09 04:50] LABS: Puncture Site Arterial Line
[2025-03-09] MEDS: PIPER/TAZO 3.375 GM PREMIX 3.375 GM/50 ML BAG IV ×3 (05:37→21:22)
[2025-03-09] MEDS: HEPARIN SOD INJ 5000 UNIT/ML VIAL SC ×3 (05:37→20:21)
[2025-03-09 06:00] LABS: Basophils % (Auto) 0 % (0-2.5); Eosinophils % (Auto) 0 % (0-10); Hematocrit 28.4 % (36.0-46.0); Immature Granulocytes % (Auto) 1 % (0-0); Immature Granulocytes Auto 0.08 Thou/mm3 (0.00-0.00); Lymphocytes # (Auto) 1.3 Thou/mm3 (1.0-4.8); Lymphocytes % (Auto) 9 % (10-50); Mean Corpuscular HGB Conc 30.6 g/dl (31.0-37.0); Mean Corpuscular Hemoglobin 30.7 pg (25.0-35.0); Mean Corpuscular Volume 100 fL (80-100); Monocytes # (Auto) 1.2 Thou/mm3 (0.0-0.8); Monocytes % (Auto) 9 % (0-12); Neutrophils # (Auto) 11.4 Thou/mm3 (1.8-7.7); Neutrophils % (Auto) 81 % (37-80); Nucleated Red Blood Cell % 0 /100 WBC (0); Platelet Count 233 Thou/mm3 (140-440); Red Blood Count 2.83 Miln/mm3 (4.00-5.20); White Blood Count 14.1 Thou/mm3 (3.6-11.0)
[2025-03-09 06:18] LABS: Hemoglobin 8.7 g/dL (12.0-16.0)
[2025-03-09 06:45] LABS: Alanine Aminotransferase 58 U/L (10-49); Albumin, Serum 3.5 gm/dL (3.4-4.8); Alkaline Phosphatase 199 U/L (46-116); Anion Gap 17 (7-16); Aspartate Amino Transferase 63 U/L (0-34); BUN/Creatinine Ratio 15 Ratio (12-20); Bilirubin,Total 0.3 mg/dL (0.3-1.2); Blood Urea Nitrogen 18 mg/dL (9-23); Calcium 8.8 mg/dL (8.3-10.6); Calcium (Corrected) 9.2 mg/dL (8.5-10.1); Carbon Dioxide 26.9 mMol/L (20.0-31.0); Chloride 103 mMol/L (98-107); Creatinine (Component) 1.2 mg/dL (0.6-1.3); Estimated Creatinine Clearance 28.5 mL/min (>60); Globulin 3.4 gm/dL (2.3-3.5); Glucose 65 mg/dL (74-106); Osmolality,Calculated 292 (275-295); Potassium 3.5 mMol/L (3.4-5.1); Sodium 147 mMol/L (136-145); Total Protein 6.9 gm/dL (5.7-8.2); eGFR 48 See Note
[2025-03-09] MEDS: VANCOMYCIN/NS 1 GM IVPB 200 ML IV (09:30)
--- NOTE | 2025-03-09 10:40 | PC.SS ---
Update: Patient on vent/trache/peg. Resident of our [facility] subacute. Peg feedings on hold. Patient on i.v. antibiotics. Wound on sacrum. Followed by wound care nurse. Patient is afebrile. Nursing states not producing adequate enough urine. Not being followed by Nephrology per bedside nurse. Hunter cath in place. No rectal tube in place.
[2025-03-09] MEDS: fentaNYL 2,500 MCG/250 ML BAG 2,500 MCG/250 ML BAG 7.5 MCG IV (11:19)
--- NOTE | 2025-03-09 13:44 | ESPR_ITS ---
Documentation for date of: 03/09/25 Subjective Subjective Interval history: 70 yo F with PMHx end stage COPD s/p tracheostomy, atrial fibrillation (on amidodarone), chronic anemia, presented from subacute after cardiac arrest and subsequent ROSC. For the past few months, trach tube exchanges have been difficult for RT to perform. Patient was referred to a general surgeon for tracheostomy revision however patient did not want to undergo operation. At subacute, she constantly has peak pressures in the 50's. This morning around 0600, her ventilator began alarming however it was assumed it was her peak pressure alarm again and patient was not assessed. RT went to bedside to assess patient and noticed no ETCO2 on the ventilator and patient was in asystole. Patient was taken off ventilator, bagged with no return of CO2 and compressions started. Jesus nieto called and emergency personnel from [place] ED arrived. In the meantime, RT was able to recannulate the tracheostomy stoma and advance an endotracheal tube in. At this time, patient was down for approximately 18 minutes. CPR was performed for 8 minutes with a total of 3mg epinephrine given IV before ROSC was obtained. Pupils initially dilated to 9mm per ED physician. Patient was transported immediately to the ED at [place] and ICU team was consulted. Pupils became reactive after ROSC. At initial assessment, patient had received 1L crystalloid bolus and was hypotensive in 60's/40's with MAP in low 50's. Levophed was ordered and started with good response. 03/08: No acute overnight events, CT head done yesterday no hemorrhage, old basal ganlgia infarcts. Patient withdaws to pain, corneal reflex present, unclear if she opens eyes purposefully to voice command. We will give another 24 hrs to reevaluate mental status post cardiac arrest. She's been off levophed for 24 hrs. Oliguric made 300 cc overnight. 03/09: No acute overnight events, patient opens eyes to comand, mentation improving, we will hold off on MRI for now. Since patient has been off pressors since admission for more than 24 hrs, and mentation is improving, n drips, we will downgrade patient to floors. continue abx till the 14 Exam Vital Signs Temp Pulse Resp BP Pulse Ox O2 Del Method FiO2 99.0 F 101 H 22 H 172/85 H 100 Mechanical Ventilation 40 03/09/25 12:00 03/09/25 13:00 03/09/25 07:03 03/09/25 13:00 03/09/25 13:00 03/09/25 12:00 03/09/25 12:00 Narrative Exam GENERAL: Chronically ill appearing, cachectic, trached and ventilated patient HEENT: Normocephalic, atraumatic and nontender.? Pupils sluggish reactive to light NECK: Supple without adenopathy. Tracheea midline, tracheostomy in place CHEST: Heart rate and rythm normal, no murmurs, gallops auscultated. S1 & 2 normal insensity.. LUNGS: Lung sounds are clear.? No wheezing, rales or ronchi.? Mechanically ventilated ABDOMEN: Soft,symmetric , Bowel sounds are normoactive in all 4 quadrants. EXTREMITIES: No pitting edema.? No cyanosis.? Withdraws to pain SKIN: No rashes noted. NEURO: withdaws to pain, corneal reflex present, unclear if she opens eyes purposefully to voice command. Objective Labs 03/10/25 04:59 03/10/25 04:59 Labs: Laboratory Results - last 24 hr 03/08/25 03/08/25 03/09/25 08:24 20:49 04:15 WBC RBC Hgb Hct MCV MCH MCHC RDW Std Deviation Plt Count Neut % (Auto) Lymph % (Auto) Walker % (Auto) Eos % (Auto) Baso % (Auto) Neut # (Auto) Lymph # (Auto) Walker # (Auto) Eos # (Auto) Baso # (Auto) Immature Gran # (Auto) Absolute Nucleated RBC Immature Gran % Nucleated RBC % Puncture Site Arterial Line ABG pH 7.35 ABG pCO2 53 H ABG pO2 133 H ABG HCO3 29 H ABG O2 Saturation 100 H ABG Base Excess 3 FiO2 40 Sodium Potassium Chloride Carbon Dioxide Anion Gap BUN Creatinine Estim Creat Clear Calc eGFR BUN/Creatinine Ratio Glucose Calculated Osmolality Calcium Corrected Calcium Total Bilirubin AST ALT Alkaline Phosphatase Total Protein Albumin Globulin Albumin/Globulin Ratio Vancomycin Trough 21.3 H* Crossmatch See Detail 03/09/25 04:39 WBC 14.1 H RBC 2.83 L Hgb 8.7 L D Hct 28.4 L MCV 100 MCH 30.7 MCHC 30.6 L RDW Std Deviation 72.0 H Plt Count 233 Neut % (Auto) 81 H Lymph % (Auto) 9 L Walker % (Auto) 9 Eos % (Auto) 0 Baso % (Auto) 0 Neut # (Auto) 11.4 H Lymph # (Auto) 1.3 Walker # (Auto) 1.2 H Eos # (Auto) 0.0 Baso # (Auto) 0.0 Immature Gran # (Auto) 0.08 H Absolute Nucleated RBC 0.00 Immature Gran % 1 H Nucleated RBC % 0 Puncture Site ABG pH ABG pCO2 ABG pO2 ABG HCO3 ABG O2 Saturation ABG Base Excess FiO2 Sodium 147 H Potassium 3.5 Chloride 103 Carbon Dioxide 26.9 Anion Gap 17 H BUN 18 Creatinine 1.2 Estim Creat Clear Calc 28.5 L eGFR 48 L BUN/Creatinine Ratio 15 Glucose 65 L Calculated Osmolality 292 Calcium 8.8 Corrected Calcium 9.2 Total Bilirubin 0.3 AST 63 H ALT 58 H Alkaline Phosphatase 199 H D Total Protein 6.9 Albumin 3.5 Globulin 3.4 Albumin/Globulin Ratio 1.0 L Vancomycin Trough Crossmatch ABG Interpretation ABG results: 03/07/25 03/08/25 03/09/25 07:40 04:19 04:15 ABG pH 7.29 L 7.39 D 7.35 ABG pCO2 68 H 55 H D 53 H ABG pO2 489 H 122 H D 133 H ABG HCO3 33 H 34 H 29 H ABG O2 Saturation 101 H 100 H 100 H ABG Base Excess 5 H 8 H 3 Quality Measures Quality Measures VTE prophylaxis Advance care planning discussed with:: patient Assessment & Plan Assessment Current Active Medications: Generic Name Dose Route Start Last Admin Trade Name Freq PRN Reason Stop Dose Admin Acetaminophen 650 mg 03/07/25 08:00 Acetaminophen 325 Mg Tablet PO 04/06/25 07:59 Q4HR PRN PAIN SCALE 1-3 (mild Acetaminophen 650 mg 03/07/25 08:00 Acetaminophen Supp 650 Mg Supp SC 04/06/25 07:59 Q4HR PRN PAIN SCALE 1-3 (mild Al Hydrox/Mg Hydrox/Simethicone 30 ml 03/07/25 08:00 Mg Hyd/Al Hyd/Natalee (Maalox Reg) Susp 30 Ml Udc PO 04/06/25 07:59 Q4HR PRN Heartburn or Upset Stomach Albuterol/Ipratropium 3 ml 03/07/25 16:45 03/08/25 00:59 Albuterol/Ipratropium (Duoneb) Rt Maranda 3 Ml Nebu INH 04/06/25 16:44 3 ml Q4H PRN Administration SHORTNESS OF BREATH OR WHEEZE Cadexomer Iodine 0 gm 03/07/25 21:00 03/08/25 20:08 Cadexomer Iodine Gel 40 Gm Tube TOP 03/14/25 20:59 1 applicatio HS LEODAN Administration Heparin Sodium (Porcine) 5,000 unit 03/07/25 14:00 03/09/25 05:37 Heparin Sod Inj 5000 Unit/Ml Vial SC 03/21/25 13:59 5,000 unit Q8HR LEODAN Administration Norepinephrine/Dextrose 8 mg in 250 mls @ 4.252 mls/hr 03/07/25 08:33 03/07/25 12:30 Levophed In D5w 8mg/250ml IV 04/06/25 08:32 0 mcg/kg/min .Q24H PRN 0 mls/hr PER PROTOCOL Titration Protocol 0.05 MCG/KG/MIN Piperacillin/Tazobactam/Dextrose 3.375 gm in 50 mls @ 12.5 mls/hr 03/07/25 22:00 03/09/25 05:37 Zosyn IV 03/14/25 21:59 12.5 mls/hr Q8HR LEODAN Administration Fentanyl Citrate 2,500 mcg in 250 mls @ 2.5 mls/hr 03/07/25 13:34 03/09/25 12:09 Sublimaze Inj 2,500 Mcg/250 Ml Bag IV 03/12/25 13:33 25 mcg/hr .Q24H PRN 2.5 mls/hr PER PROTOCOL Titration Protocol 25 MCG/HR Vancomycin/Sodium Chloride 200 mls @ 120 mls/hr 03/09/25 10:00 03/09/25 09:30 Vancomycin/Ns 1 Gm Ivpb IV 03/16/25 09:59 120 mls/hr Q24H LEODAN Administration Protocol Magnesium Hydroxide 30 ml 03/07/25 08:00 Milk Of Magnesia Susp 30 Ml Udc PO 04/06/25 07:59 QDAY PRN CONSTIPATION Nitroglycerin 0.4 mg 03/07/25 08:00 Nitroglycerin 0.4 Mg Subl Btl #25 SL Q5MIN PRN CHEST PAIN Pharmacy Consult 1 each 03/07/25 11:00 Vancomycin Pharmacy To Dose 1 Each Each IV 04/06/25 10:59 QDAY PRN CONSULT 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 CV #status post cardiac arrest #Afib #hypotension, resolved - Patient down for 18 minutes prior to CPR initiation. Subsequent 8 minutes of CPR with 3mg epinephrine administered - Etiology of code likely 2/2 hypercarbic hypoxic respiratory failure from trach migration - Maintain normothermia - Patient was hypotensive but now normotensive after transport to ICU. Levophed gtt off for more than 24 hrs Resp #End stage COPD s/p tracheostomy #Mechanically ventilated - TV 375, RR 22, FiO2 40% Endo - No acute issues GI - No acute issues, hold TF for now Renal #Sepsis 2/2 UTI - Chronic indwelling Hunter catheter had copious sediment and purulent appearing urine - Hunter exchange did not go smoothly, new Hunter expected to be clogged after insertion by RN. Bladder scan showed empty bladder. May need to be exchanged again if no flow - See ID section for UTI management MSK - No acute issues ID/heme #Sepsis 2/2 UTI - Zosyn 3.375mg q6hr (03/07 - ) - Vancomycin dosing per pharmacy (03/07 - ) -Pending urine culture results #Chronic anemia - Hb 7.5 Disposition: Patient admitted to ICU post cardiac arrest Diet and fluids:NPO DVT prophylaxis:Heparin GI prophylaxis:None CODE STATUS: Full, discussed plan of care with patient's son Hunter:In place Lines:Peripheral Patient's care discussed with attending physician, Dr Fermin Nunez MD PGY3 Attending Provider Attestation/Addendum Patient seen and examined with above resident, Tamar Nunez MD. I agree with the findings, assessment, and plan of care as documented except for any differences below. Patient remains off of sedation though she does have some slight improvement in neurologic status she has yet to the awaken and follow commands. Continue supportive care. Can complete empiric antibiotic course with likely urinary tract as source of infection with chronic Hunter placement. Patient remained stable on mechanical ventilation with high peak pressures as expected given her advanced COPD. Patient was a continue to show improvement or may eventually show plateau with neural full neurologic recovery. Patient's family is aware that this is a possibility and will continue counseled on as we help to make decisions in the coming days. At this point, the patient is stable and can return to the medicine diop for further adjustments awaiting final results [facility]. Total critical care time: I personally spent 40 minutes for review of physiologic parameters, directing plan of care throughout the day, and coordination of care with other specialties. This is exclusive of time spent teaching housestaff or performing any separate billable procedures. Patient continued require critical care services for acute on chronic hypercapnic respiratory failure and acute encephalopathy is likely secondary to anoxic brain injury. Patient remains at significant risk for further morbidity and mortality warranting close monitoring and care only available in the intensive care unit.
--- NOTE | 2025-03-09 14:50 | ESPR_ITS ---
Documentation for date of: 03/09/25 Subjective Subjective Interval history: Patient is a 70 years old female with PMH of end stage COPD s/p tracheostomy, atrial fibrillation on amidodarone, chronic anemia was downgraded from ICU to medical floor. She initially presented from subacute after cardiac arrest and subsequent ROSC. Subacute stuff reported her ventilator began alarming and RT went to bedside to assess patient and noticed no ET CO2 on the ventilator and patient was in asystole. Patient was taken off ventilator, bagged with no return of CO2 and compressions started. Jesus nieto called and emergency personnel from [place] ED arrived. In the meantime, RT was able to recannulate the tracheostomy stoma and advance an endotracheal tube in. Total ACLS time 26 minutes with a total of 3mg epinephrine given IV before ROSC was obtained. Patient was transported immediately to the ED at [place] and ICU team was consulted and she was started on pressors support. 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 Brain MRI was held. Today she was able to follow simple commands. Urine output was low but improving. Levophed was discontinued yesterday and BP was stable. She was downgraded to medical floor for continuation of care. Per ICU team thy recommend to continue antibiotics till 03/14/2025. Exam Vital Signs Temp Pulse Resp BP Pulse Ox O2 Del Method FiO2 99.0 F 101 H 22 H 176/94 H 100 Mechanical Ventilation 40 03/09/25 12:00 03/09/25 14:19 03/09/25 07:03 03/09/25 14:00 03/09/25 14:19 03/09/25 12:00 03/09/25 14:19 Narrative Exam Gen: Well-developed elderly female. Global muscle wasting noted. HEENT: NCAT, PERRLA, MMM, anicteric conjunctivae. Unable to track objects with her eyes. CVS: normal S1 and S2. Regular tachycardia. No M/R/G. Resp: expiratory wheezing B/L. No rhonchi, rales, crackles. Tracheostomy in place, no discharge, on MV. Abd: soft, non-tender, non-distended. BS+ in all 4 quadrants. PEG tube in place and is clean. MSK: Good ROM in BUE & BLE. Multiple bruises and non-pitting edema BUE. Trace edema BLE. Neuro: Limited exam due to medical condition, she is non-verbal, able to follow simple commands. Able to move 4 extremities. Objective Labs 03/10/25 04:59 03/10/25 04:59 Labs: Laboratory Results - last 24 hr 03/08/25 03/08/25 03/09/25 08:24 20:49 04:15 WBC RBC Hgb Hct MCV MCH MCHC RDW Std Deviation Plt Count Neut % (Auto) Lymph % (Auto) [place] % (Auto) Eos % (Auto) Baso % (Auto) Neut # (Auto) Lymph # (Auto) [place] # (Auto) Eos # (Auto) Baso # (Auto) Immature Gran # (Auto) Absolute Nucleated RBC Immature Gran % Nucleated RBC % Puncture Site Arterial Line ABG pH 7.35 ABG pCO2 53 H ABG pO2 133 H ABG HCO3 29 H ABG O2 Saturation 100 H ABG Base Excess 3 FiO2 40 Sodium Potassium Chloride Carbon Dioxide Anion Gap BUN Creatinine Estim Creat Clear Calc eGFR BUN/Creatinine Ratio Glucose Calculated Osmolality Calcium Corrected Calcium Total Bilirubin AST ALT Alkaline Phosphatase Total Protein Albumin Globulin Albumin/Globulin Ratio Vancomycin Trough 21.3 H* Crossmatch See Detail 03/09/25 04:39 WBC 14.1 H RBC 2.83 L Hgb 8.7 L D Hct 28.4 L MCV 100 MCH 30.7 MCHC 30.6 L RDW Std Deviation 72.0 H Plt Count 233 Neut % (Auto) 81 H Lymph % (Auto) 9 L [place] % (Auto) 9 Eos % (Auto) 0 Baso % (Auto) 0 Neut # (Auto) 11.4 H Lymph # (Auto) 1.3 [place] # (Auto) 1.2 H Eos # (Auto) 0.0 Baso # (Auto) 0.0 Immature Gran # (Auto) 0.08 H Absolute Nucleated RBC 0.00 Immature Gran % 1 H Nucleated RBC % 0 Puncture Site ABG pH ABG pCO2 ABG pO2 ABG HCO3 ABG O2 Saturation ABG Base Excess FiO2 Sodium 147 H Potassium 3.5 Chloride 103 Carbon Dioxide 26.9 Anion Gap 17 H BUN 18 Creatinine 1.2 Estim Creat Clear Calc 28.5 L eGFR 48 L BUN/Creatinine Ratio 15 Glucose 65 L Calculated Osmolality 292 Calcium 8.8 Corrected Calcium 9.2 Total Bilirubin 0.3 AST 63 H ALT 58 H Alkaline Phosphatase 199 H D Total Protein 6.9 Albumin 3.5 Globulin 3.4 Albumin/Globulin Ratio 1.0 L Vancomycin Trough Crossmatch ABG Interpretation ABG results: 03/07/25 03/08/25 03/09/25 07:40 04:19 04:15 ABG pH 7.29 L 7.39 D 7.35 ABG pCO2 68 H 55 H D 53 H ABG pO2 489 H 122 H D 133 H ABG HCO3 33 H 34 H 29 H ABG O2 Saturation 101 H 100 H 100 H ABG Base Excess 5 H 8 H 3 Quality Measures Quality Measures VTE prophylaxis Advance care planning discussed with:: other Assessment & Plan Assessment Current Active Medications: Generic Name Dose Route Start Last Admin Trade Name Freq PRN Reason Stop Dose Admin Acetaminophen 650 mg 03/07/25 08:00 Acetaminophen 325 Mg Tablet PO 04/06/25 07:59 Q4HR PRN PAIN SCALE 1-3 (mild Acetaminophen 650 mg 03/07/25 08:00 Acetaminophen Supp 650 Mg Supp TX 04/06/25 07:59 Q4HR PRN PAIN SCALE 1-3 (mild Al Hydrox/Mg Hydrox/Simethicone 30 ml 03/07/25 08:00 Mg Hyd/Al Hyd/Natalee (Maalox Reg) Susp 30 Ml Udc PO 04/06/25 07:59 Q4HR PRN Heartburn or Upset Stomach Albuterol/Ipratropium 3 ml 03/07/25 16:45 03/08/25 00:59 Albuterol/Ipratropium (Duoneb) Rt Maranda 3 Ml Nebu INH 04/06/25 16:44 3 ml Q4H PRN Administration SHORTNESS OF BREATH OR WHEEZE Cadexomer Iodine 0 gm 03/07/25 21:00 03/08/25 20:08 Cadexomer Iodine Gel 40 Gm Tube TOP 03/14/25 20:59 1 applicatio HS LEODAN Administration Heparin Sodium (Porcine) 5,000 unit 03/07/25 14:00 03/09/25 13:52 Heparin Sod Inj 5000 Unit/Ml Vial SC 03/21/25 13:59 5,000 unit Q8HR LEODAN Administration Norepinephrine/Dextrose 8 mg in 250 mls @ 4.252 mls/hr 03/07/25 08:33 03/07/25 12:30 Levophed In D5w 8mg/250ml IV 04/06/25 08:32 0 mcg/kg/min .Q24H PRN 0 mls/hr PER PROTOCOL Titration Protocol 0.05 MCG/KG/MIN Piperacillin/Tazobactam/Dextrose 3.375 gm in 50 mls @ 12.5 mls/hr 03/07/25 22:00 03/09/25 13:51 Zosyn IV 03/14/25 21:59 12.5 mls/hr Q8HR LEODAN Administration Fentanyl Citrate 2,500 mcg in 250 mls @ 2.5 mls/hr 03/07/25 13:34 03/09/25 13:32 Sublimaze Inj 2,500 Mcg/250 Ml Bag IV 03/12/25 13:33 0 mcg/hr .Q24H PRN 0 mls/hr PER PROTOCOL Titration Protocol 25 MCG/HR Vancomycin/Sodium Chloride 200 mls @ 120 mls/hr 03/09/25 10:00 03/09/25 09:30 Vancomycin/Ns 1 Gm Ivpb IV 03/16/25 09:59 120 mls/hr Q24H LEODAN Administration Protocol Magnesium Hydroxide 30 ml 03/07/25 08:00 Milk Of Magnesia Susp 30 Ml Udc PO 04/06/25 07:59 QDAY PRN CONSTIPATION Nitroglycerin 0.4 mg 03/07/25 08:00 Nitroglycerin 0.4 Mg Subl Btl #25 SL Q5MIN PRN CHEST PAIN Pharmacy Consult 1 each 03/07/25 11:00 Vancomycin Pharmacy To Dose 1 Each Each IV 04/06/25 10:59 QDAY PRN CONSULT Plan Patient is a 70 years old female with PMH of end stage COPD s/p tracheostomy, atrial fibrillation on amidodarone, chronic anemia was downgraded from ICU to medical floor. She initially presented from subacute after cardiac arrest and subsequent ROSC. Subacute stuff reported her ventilator began alarming and RT went to bedside to assess patient and noticed no ET CO2 on the ventilator and patient was in asystole. Patient was taken off ventilator, bagged with no return of CO2 and compressions started. Jesus nieto called and emergency personnel from [place] ED arrived. In the meantime, RT was able to recannulate the tracheostomy stoma and advance an endotracheal tube in. Total ACLS time 26 minutes with a total of 3mg epinephrine given IV before ROSC was obtained. Patient was transported immediately to the ED at [place] and ICU team was consulted and she was started on pressors support. 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 Brain MRI was held. Today she was able to follow simple commands. Urine output was low but improving. Levophed was discontinued yesterday and BP was stable. She was downgraded to medical floor for continuation of care. Per ICU team thy recommend to continue antibiotics till 03/14/2025. #Status post cardiac arrest. #Hx of Afib. #Hypotension, resolved. - Patient down for 18 minutes prior to CPR initiation. Subsequent 8 minutes of CPR with 3mg epinephrine administered - Etiology of code likely 2/2 hypercarbic hypoxic respiratory failure from trach migration - Maintain normothermia - Patient was hypotensive but now normotensive after transport to ICU. Levophed gtt off for more than 24 hrs. Plan: - continue close telemetry HR and BP monitoring. - resume amiodarone 200 mg daily tomorrow AM. #Acute encephalopathy following cardiac arrest with prolonged down time, improving. - Patient withdraws from painful stimuli. - Corneal reflexes present. - Opens eyes to command. 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 Plan: - continue monitoring. #End stage COPD s/p tracheostomy. #Mechanically ventilated. Plan: - continue MV with current settings TV 375, RR 22, FiO2 40%. #Sepsis 2/2 UTI. - Chronic indwelling Hunter catheter had copious sediment and purulent appearing urine, Hunter was changed. - UA was positive for UTI. Cultures taken. - Per ICU recs continue ABx till 03/14/2025. Plan: - Zosyn 3.375mg q6hr (03/07 - ). - Vancomycin dosing per pharmacy (03/07 - ). - Pending urine culture results. #PEG tube feeds. Plan: - resume tube feeds tomorrow AM. #Chronic anemia. - Hgb 7.5. Plan: - monitor with daily CBC. - transfuse if Hgb below 7. Disposition: Patient downgraded from ICU post cardiac arrest. Diet and fluids:NPO DVT prophylaxis:Heparin GI prophylaxis:None CODE STATUS: Full code, ICU team discussed plan of care with patient's son. Hunter: In place. Lines: Peripheral. Plan of care discussed with attending Dr. Simmons. Kev Heck MD, PGY 2. Disclaimer: This note was dictated by speech recognition. Minor errors in paid search marketing strategist may be present due to voice recognition software. Attending Provider Attestation/Addendum I attest that I was physically present for the evaluation, physical examination, lab and imaging review of the patient with the residents. I discussed the case with the residents and agree with the findings and plans of care as documented above. Marielena Simmons MD
--- NOTE | 2025-03-09 16:37 | PC.SS ---
Update: Patient to be downgraded from ICU to Tele today.
[2025-03-09] MEDS: fentaNYL CIT INJ 50 mCg/ML AMP 2ML IVP (17:45)
[2025-03-09] MEDS: CADEXOMER IODINE GEL 40 GM TUBE TOP (20:21)
[2025-03-09] MEDS: HYDROcodone/APAP 5/325 TABLET 1 TAB PO (21:43)
[2025-03-10] VITALS (13 sets, daily range): BP systolic 138–196; BP diastolic 81–124; PULSE 95–128; RESP 22–28; TEMP 36.1–36.4; O2SAT 96–100; BMI 17.0
--- NOTE | 2025-03-10 | XR_ITS ---
Examination: MRI brain without intravenous contrast. Date and time of exam: March 10, 2025 1518 hrs. Indications: Nonresponsive beginning 4 days ago, clinical diagnosis anoxic brain injury Technique: Multiple axial and sagittal images of the brain obtained. Siemens high-resolution 1.5 Maribel short bore scanners utilized. Sagittal sections, T1-weighted, TR 500, TE 14, are performed. Axial sections proton-density and T2-weighted have been obtained. Inversion recovery axial images, TR 9, 260, TE 111, TI 2500. Diffusion weighted images, axial sections, TR 4800, TE 128, B value 1000 Axial sections, ADC map, TR 4800, TE 128 Findings: Enlargement of the sella turcica is not present. The optic chiasm and infundibular are not remarkable. Prepontine and interpeduncular cisterns are not enlarged. There is no localized enlargement of the medulla or nicol. Fourth ventricle and cerebellar tonsils appear normal in position. No subacute area of hemorrhage density is seen. Mass in the cerebellopontine angle region is not evident. Globes symmetrical. Orbital musculature including medial lateral rectus muscles do not exhibit abnormality. Diffusion-weighted images demonstrate foci of restricted diffusion in the bilateral basal ganglia.,, Restricted diffusion in the cortical gyri Increased white matter signal increased periventricular basal ganglia signal and cortical gyri Mass effect upon the ventricular system is not identified. Bilateral mastoiditis Impression: Bilateral severe ischemic/anoxic change, basal ganglia, periventricular, diffuse cerebral gyri
--- NOTE | 2025-03-10 04:05 | PC.NURSE ---
notified Dr. Pfeiffer of patients bp 177/124, hr 119, 99% oxygen temp 98.0. Patient is diaphoretic with skin cold to touch. Bedside fingerstick 111. Did a bladder scan and got 9ml with 200 ml of clear yellow urine in baker. Dr came to bedside to assess patient. Patient would react to pain but not a normal reaction. Patient moved arms in a posturing postition. ordered a lactic for am labs and morphine push for possible pain. Will monitor
[2025-03-10] MEDS: MORPHINE SULF INJ 10 MG/ML VIAL 2 MG IVP (04:39)
[2025-03-10 04:46] LABS: Base Excess -3 (-3-3); HCO3 25 mEq/L (20-26); Inspired Oxygen, FIO2 40 %; O2 Saturation 99 % (91-98); PCO2 56 mmHg (32.0-48.0); PO2 131 mmHg (83-108); pH, Arterial 7.25 (7.35-7.45)
[2025-03-10 04:47] LABS: Allen Test Performed/OK; Puncture Site Right Radial
[2025-03-10] MEDS: PIPER/TAZO 3.375 GM PREMIX 3.375 GM/50 ML BAG IV ×3 (05:06→21:40)
[2025-03-10 05:09] LABS: Lactate (Lactic Acid) 2.4 mMol/L (0.4-2.0)
[2025-03-10 05:18] LABS: Basophils % (Auto) 0 % (0-2.5); Eosinophils % (Auto) 0 % (0-10); Hematocrit 33.8 % (36.0-46.0); Hemoglobin 10.3 g/dL (12.0-16.0); Immature Granulocytes % (Auto) 1 % (0-0); Immature Granulocytes Auto 0.16 Thou/mm3 (0.00-0.00); Lymphocytes # (Auto) 0.9 Thou/mm3 (1.0-4.8); Lymphocytes % (Auto) 5 % (10-50); Mean Corpuscular HGB Conc 30.5 g/dl (31.0-37.0); Mean Corpuscular Hemoglobin 31.1 pg (25.0-35.0); Mean Corpuscular Volume 102 fL (80-100); Monocytes # (Auto) 1.8 Thou/mm3 (0.0-0.8); Monocytes % (Auto) 11 % (0-12); Neutrophils # (Auto) 14.5 Thou/mm3 (1.8-7.7); Neutrophils % (Auto) 83 % (37-80); Nucleated Red Blood Cell % 0 /100 WBC (0); Platelet Count 273 Thou/mm3 (140-440); RDW Standard Deviation 72.1 fL (36.4-46.3); Red Blood Count 3.31 Miln/mm3 (4.00-5.20); White Blood Count 17.4 Thou/mm3 (3.6-11.0)
[2025-03-10 05:46] LABS: Alanine Aminotransferase 50 U/L (10-49); Albumin/Globulin Ratio 1.1 (1.2-2.2); Alkaline Phosphatase 194 U/L (46-116); Anion Gap 20 (7-16); Aspartate Amino Transferase 67 U/L (0-34); BUN/Creatinine Ratio 16 Ratio (12-20); Bilirubin,Total 0.4 mg/dL (0.3-1.2); Blood Urea Nitrogen 23 mg/dL (9-23); Calcium 9.7 mg/dL (8.3-10.6); Calcium (Corrected) 9.7 mg/dL (8.5-10.1); Carbon Dioxide 23.6 mMol/L (20.0-31.0); Chloride 106 mMol/L (98-107); Creatinine (Component) 1.4 mg/dL (0.6-1.3); Estimated Creatinine Clearance 24.4 mL/min (>60); Globulin 3.8 gm/dL (2.3-3.5); Glucose 112 mg/dL (74-106); Osmolality,Calculated 302 (275-295); Potassium 3.4 mMol/L (3.4-5.1); Sodium 150 mMol/L (136-145); Total Protein 7.8 gm/dL (5.7-8.2); eGFR 40 See Note
[2025-03-10 08:05] LABS: Reflex Lactate? Y
[2025-03-10] MEDS: ALPRazoLAM 0.25 MG TABLET 0.5 MG PO (08:10)
[2025-03-10] MEDS: AMIODARONE HCL 200 MG TABLET PO (08:11)
[2025-03-10] MEDS: HEPARIN SOD INJ 5000 UNIT/ML VIAL SC ×2 (08:11→21:32)
[2025-03-10] MEDS: POTASSIUM CHLORIDE 10% 20 MEQ/15 ML UDC 40 MEQ GT (08:13)
--- NOTE | 2025-03-10 08:13 | PC.NURSE ---
I notified Dr. Padilla regarding patient's elevated blood pressure. New order to resume amiodarone and xanax was received. Will follow-up with another blood pressure check after medcation given.
[2025-03-10 09:24] LABS: Lactic Acid, 3 HR 1.1 mMol/L (0.4-2.0)
--- NOTE | 2025-03-10 10:38 | ESCONSULT_ITS ---
HPI Data of Consult Requesting Physician: Marielena Simmons MD Admitting Provider: Jonathan Christensen MD Attending Provider: Marielena Simmons MD Primary Care Provider: Tico Salazar MD Consult Narrative History of present illness: 70-year-old woman from subacute facility was brought to the ED due to cardiac arrest. History was taken per chart review due to patient is unable to provide story condition. At the subacute facility patient was found ventilator to be alarming when RT went to assess the patient at the bedside noticed ETCO2 later and patient was seen in systole for we was taken off the ventilator and bagged with no return of CO2, CODE BLUE was called, RT was able to recannulate the tracheostomy and advance ET tube approximately downtime was around 18 minutes patient regained ROSC 8 minutes of CPR and 3 rounds of epi. Per chart review ED physician noticed pupils were dilated and became reactive after ROSC. Patient was admitted to the ICU for further management and treatment of s/p cardiac arrest. Neurology was consulted for acute encephalopathy and rule out possible anoxic/hypoxic brain injury ROS: Unable to assess due to patient mental status Past medical history: end stage COPD s/p tracheostomy, atrial fibrillation, chronic anemia, Past surgical history: Tracheostomy Family history: None relevant Social history: From subacute facility Travel history: None relevant Allergies: No known allergy cc:: cc: Marielena Simmons MD Exam Vital Signs Temp Pulse Resp BP Pulse Ox O2 Del Method FiO2 96.9 F 128 H 28 H 196/116 H 99 Mechanical Ventilation 40 03/10/25 08:00 03/10/25 08:11 03/10/25 08:00 03/10/25 08:11 03/10/25 08:00 03/10/25 08:00 03/10/25 08:00 Narrative Exam General: Frail, chronically ill, cachectic, trach and PEG mechanically ventilated HEENT: NC/AT, pupils reactive to light sluggish, fixated Neck: Supple, No masses, No adenopathy, carotid pulse 2+ bilaterally without bruits, No JVD, tracheostomy intact Chest: Symmetrical, atraumatic, and with equal expansion , Nontender on palpation no deformity and no crepitus. CVS: S1 and S2 present, tachycardic, No murmurs, rubs or gallops perceived during auscultation. Lungs: Normal respiratory effort, CTAB, no wheezing, rhonchi or rales perceived during auscultation, No intercostal or subcostal retraction. Abdomen : Soft, no tenderness to palpation, no guarding ,no rebound, PEG tube in place Extremities: No edema, warm well perfused, normal tone and ROM, strength and sensation intact, cap refill less than 2, +2 dp equal bilaterally, able to move all 4 extremities spontaneously. Skin: Intact, no rashes, no lesions, no erythema or jaundice noted Neuro: Not following commands, not responding to noxious stimuli, no gaze tracking, not opening eyes spontaneously, bilateral Babinski positive, not withdrawing to pain Psych: Difficult to assess due to patient mental status Results Labs 03/10/25 04:59 03/10/25 18:57 Labs: Short CBC 03/10/25 Range/Units 04:59 WBC 17.4 H (3.6-11.0) Thou/mm3 Hgb 10.3 L (12.0-16.0) g/dL Hct 33.8 L (36.0-46.0) % Plt Count 273 D (140-440) Thou/mm3 BMP 03/10/25 04:59 Sodium 150 H Potassium 3.4 Chloride 106 Carbon Dioxide 23.6 BUN 23 Creatinine 1.4 H Glucose 112 H D Calcium 9.7 Liver Function 03/10/25 Range/Units 04:59 Total Bilirubin 0.4 (0.3-1.2) mg/dL AST 67 H (0-34) U/L ALT 50 H (10-49) U/L Alkaline Phosphatase 194 H (46-116) U/L Albumin 4.0 D (3.4-4.8) gm/dL ABG Interpretation ABG results: 03/07/25 03/08/25 03/09/25 07:40 04:19 04:15 ABG pH 7.29 L 7.39 D 7.35 ABG pCO2 68 H 55 H D 53 H ABG pO2 489 H 122 H D 133 H ABG HCO3 33 H 34 H 29 H ABG O2 Saturation 101 H 100 H 100 H ABG Base Excess 5 H 8 H 3 03/10/25 04:35 ABG pH 7.25 L D ABG pCO2 56 H ABG pO2 131 H ABG HCO3 25 ABG O2 Saturation 99 H ABG Base Excess -3 Quality Measures Quality Measures VTE prophylaxis Advance care planning discussed with:: child Medications Home Medications and Allergies Home Medications ?Medication ?Instructions ?Recorded ?Confirmed ?Type amiodarone 200 mg tablet 200 mg PO QDAY 02/14/2408/25 History famotidine 20 mg tablet 20 mg PO BID 02/14/24 History midodrine 10 mg tablet 10 mg PO QID 02/14/24 History acetaminophen 325 mg tablet 650 mg PO Q6H PRN Fever Or Pain 02/15/24 03/09/25 History (Tylenol) alprazolam 0.5 mg tablet 0.5 mg PO Q12H PRN Anxiety 0 02/15/24 03/09/25 History guaifenesin 100 mg/5 mL oral syrup 100 mg PO Q6H PRN C ough 02/15/24 03/09/25 History ascorbic acid (vitamin C) 500 mg 500 mg PO BID 4 03/09/25 History tablet (Vitamin C) bisacodyl 10 mg rectal suppository 10 mg WI QDAY PRN C onstipation 06/30/24 03/09/25 History (Dulcolax (bisacodyl)) budesonide 0.5 mg/2 mL suspension 0.5 mg inhalation BI D 06/30/24 03/09/25 History for nebulization (Pulmicort) guaifenesin 100 mg/5 mL oral 200 mg PO Q6H PRN Cough 0 06/30/24 03/09/25 History liquid (Nilsa-Tussin) hydrocodone 5 mg-acetaminophen 325 1 tab PO Q8H PRN Pa in 06/30/24 03/09/25 History mg tablet ipratropium 0.5 mg-albuterol 3 mg 3 ml inhalation Q4H PRN Wheezing 06/30/24 03/09/25 History (2.5 mg base)/3 mL nebulization soln multivitamin 1 tab PO QAM 06/30/24 History sennosides 8.6 mg tablet (senna) 8.6 mg PO BID 4 03/09/25 History vitamin B complex 1 tab PO QDAY 06/30/2403/09 History aluminum-mag hydroxide-simethicone 30 ml PO DAILY 08/2503/09/25 History 200 mg-200 mg-20 mg/5 mL oral susp (Nilsa-Lanta) bisacodyl 10 mg rectal suppository 10 mg WI QDAY PRN c onstipation 03/09/25 03/09/25 History (Dulcolax (bisacodyl)) dextran 70-hypromellose 0.1 %-0.3 1 drp ophthalmic (ey e) BID PRN dry 03/09/25 03/09/25 History % eye drops (GenTeal Tears Mild) eye(s) magnesium hydroxide 400 mg/5 mL 30 ml PO DAILY PRN con stipation 03/09/25 03/09/25 History oral suspension (Milk of Magnesia) polyethylene glycol 3350 17 17 g PO QDAY PRN constipat ion 03/09/25 03/09/25 History gram/dose oral powder (Miralax) Allergies Allergy/AdvReac Type Severity Reaction Status Date / Time No Known Allergies Allergy Verified 03/07/25 07:43 Visit Medications Hydrocodone Bitart/Acetaminophen (Hydrocodone/Apap 5/325 Tablet) 1 tab PO Q8H PRN PRN Reason: PAIN SCALE 4-10(Mod-Sev Stop: 03/14/25 17:57 Last Admin: 03/09/25 21:43 Dose: 1 tab Al Hydrox/Mg Hydrox/Simethicone (Mg Hyd/Al Hyd/Natalee (Maalox Reg) Susp 30 Ml Udc) 30 ml PO Q4HR PRN PRN Reason: Heartburn or Upset Stomach Stop: 04/06/25 07:59 Albuterol/Ipratropium (Albuterol/Ipratropium (Duoneb) Rt Maranda 3 Ml Nebu) 3 ml INH Q4H PRN PRN Reason: SHORTNESS OF BREATH OR WHEEZE Stop: 04/06/25 16:44 Last Admin: 03/08/25 00:59 Dose: 3 ml Alprazolam (Alprazolam 0.25 Mg Tablet) 0.5 mg PO Q12H PRN PRN Reason: Anxiety Stop: 03/15/25 07:50 Last Admin: 03/10/25 08:10 Dose: 0.5 mg Amiodarone HCl (Amiodarone Hcl 200 Mg Tablet) 200 mg PO QDAY LEODAN Stop: 04/09/25 08:59 Last Admin: 03/10/25 08:11 Dose: 200 mg Cadexomer Iodine (Cadexomer Iodine Gel 40 Gm Tube) 0 gm TOP HS [facility] Stop: 03/14/25 20:59 Last Admin: 03/09/25 20:21 Dose: 1 applicatio Heparin Sodium (Porcine) (Heparin Sod Inj 5000 Unit/Ml Vial) 5,000 unit SC Q12HR [facility] Stop: 03/23/25 20:59 Last Admin: 03/10/25 08:11 Dose: 5,000 unit Piperacillin/Tazobactam/Dextrose (Zosyn) 3.375 gm in 50 mls @ 12.5 mls/hr IV Q8HR [facility] Stop: 03/14/25 21:59 Last Admin: 03/10/25 05:06 Dose: 12.5 mls/hr Vancomycin/Sodium Chloride (Vancomycin/Ns 750 Mg Ivpb) 750 mg in 150 mls @ 120 mls/hr IV Q24H [facility] Stop: 03/17/25 09:59 Magnesium Hydroxide (Milk Of Magnesia Susp 30 Ml Udc) 30 ml PO QDAY PRN PRN Reason: CONSTIPATION Stop: 04/06/25 07:59 Nitroglycerin (Nitroglycerin 0.4 Mg Subl Btl #25) 0.4 mg SL Q5MIN PRN PRN Reason: CHEST PAIN Pharmacy Consult (Vancomycin Pharmacy To Dose 1 Each Each) 1 each IV QDAY PRN PRN Reason: CONSULT Stop: 04/06/25 10:59 Discontinued Medications Acetaminophen (Acetaminophen 325 Mg Tablet) 650 mg PO Q4HR PRN PRN Reason: PAIN SCALE 1-3 (mild Stop: 04/06/25 07:59 Acetaminophen (Acetaminophen Supp 650 Mg Supp) 650 mg WI Q4HR PRN PRN Reason: PAIN SCALE 1-3 (mild Stop: 04/06/25 07:59 Fentanyl Citrate (Fentanyl Cit Inj 50 Mcg/Ml Amp 2ml) 50 mcg IVP X1 ONE Stop: 03/07/25 08:50 Last Admin: 03/07/25 10:15 Dose: 50 mcg Fentanyl Citrate (Fentanyl Cit Inj 50 Mcg/Ml Amp 2ml) 50 mcg IVP X1 ONE Stop: 03/09/25 17:34 Last Admin: 03/09/25 17:45 Dose: 50 mcg Heparin Sodium (Porcine) (Heparin Sod Inj 5000 Unit/Ml Vial) 5,000 unit SC Q8HR LEODAN Stop: 03/21/25 13:59 Last Admin: 03/09/25 13:52 Dose: 5,000 unit Sodium Chloride (Ns) 1,000 mls @ 999 mls/hr IV .Q1H1M ONE Stop: 03/07/25 09:28 Last Admin: 03/07/25 08:39 Dose: 999 mls/hr Norepinephrine/Dextrose (Levophed In D5w 8mg/250ml) 8 mg in 250 mls @ 4.252 mls/hr IV .Q24H PRN; Protocol PRN Reason: PER PROTOCOL Stop: 04/06/25 08:32 Last Titration: 03/07/25 12:30 Dose: 0 mcg/kg/min, 0 mls/hr Lactated Ringer's (Lactated Ringers) 500 mls @ 999 mls/hr IV .Q31M ONE Stop: 03/07/25 10:04 Last Admin: 03/07/25 15:08 Dose: Not Given Piperacillin/Tazobactam/Dextrose (Zosyn) 3.375 gm in 50 mls @ 100 mls/hr IV X1 ONE Stop: 03/07/25 11:29 Last Admin: 03/07/25 13:52 Dose: 100 mls/hr Vancomycin/Sodium Chloride (Vancomycin/Ns 1 Gm Ivpb) 200 mls @ 120 mls/hr IV X1 ONE Stop: 03/07/25 12:39 Last Admin: 03/07/25 13:52 Dose: 120 mls/hr Vancomycin/Sodium Chloride (Vancomycin/Ns 750 Mg Ivpb) 750 mg in 150 mls @ 120 mls/hr IV Q12H LEODAN; Protocol Stop: 03/14/25 21:59 Last Admin: 03/08/25 23:16 Dose: Not Given Fentanyl Citrate (Sublimaze Inj 2,500 Mcg/250 Ml Bag) 2,500 mcg in 250 mls @ 2.5 mls/hr IV .Q24H PRN; Protocol PRN Reason: PER PROTOCOL Stop: 03/12/25 13:33 Last Titration: 03/09/25 13:32 Dose: 0 mcg/hr, 0 mls/hr Lactated Ringer's (Lactated Ringers) 500 mls @ 500 mls/hr IV .Q1H ONE Stop: 03/07/25 15:13 Last Admin: 03/07/25 14:47 Dose: 500 mls/hr Vancomycin/Sodium Chloride (Vancomycin/Ns 1 Gm Ivpb) 200 mls @ 120 mls/hr IV Q24H [facility]; Protocol Stop: 03/16/25 09:59 Last Infusion: 03/09/25 19:33 Dose: Infused Morphine Sulfate (Morphine Sulf Inj 10 Mg/Ml Vial) 2 mg IVP X1 ONE Stop: 03/10/25 04:17 Last Admin: 03/10/25 04:39 Dose: 2 mg Potassium Chloride (Potassium Chloride 10% 20 Meq/15 Ml Udc) 40 meq GT X1 ONE Stop: 03/10/25 08:09 Last Admin: 03/10/25 08:13 Dose: 40 meq Sodium Chloride (Sodium Chloride Rt 10% 15 Ml Nebu) 5 ml INH X1 ONE Stop: 03/07/25 08:01 Last Admin: 03/07/25 09:31 Dose: Not Given Assessment & Plan Plan 70-year-old woman from subacute facility was brought to the ED due to cardiac arrest. History was taken per chart review due to patient is unable to provide story condition. At the subacute facility patient was found ventilator to be alarming when RT went to assess the patient at the bedside noticed ETCO2 later and patient was seen in systole for we was taken off the ventilator and bagged with no return of CO2, CODE BLUE was called, RT was able to recannulate the tracheostomy and advance ET tube approximately downtime was around 18 minutes patient regained ROSC 8 minutes of CPR and 3 rounds of epi. Per chart review ED physician noticed pupils were dilated and became reactive after ROSC. Patient was admitted to the ICU for further management and treatment of s/p cardiac arrest. Neurology was consulted for acute encephalopathy and rule out possible anoxic/hypoxic brain injury #Acute encephalopathy #Rule out hypoxic brain injury Patient was admitted to the ICU status postcardiac arrest for unknown downtime otherwise per chart review Downtime approximately was 18 minutes at the moment RT found the patient in asystole and not breathing CT head was negative for acute hemorrhage, mass effect or midline shift Small age indeterminate bilateral basal ganglia infarcts otherwise less likely cause of encephalopathy Most likely could be secondary to anoxic/hypoxic brain injury Plan: ? EEG awake and drowsy ? Brain MRI without contrast #Status post cardiac arrest. #Hx of Afib. #Hypotension, resolved. #End stage COPD s/p tracheostomy. #Mechanically ventilated. #Chronic anemia #Sepsis 2/2 UTI. Plan: - Continue treatment per primary team Patient discussed with my attending Dr Galindo Torres MD PGY-3 Disclaimer: Despite multiple revisions, due to the dictation software being used, the document bellow may not be free of grammatical errors including phonetic/typographic errors. However, this does not deter from our commitment to providing health care in the patient's best interest in mind. Attending Provider Attestation/Addendum I independently reviewed the patient at night with resident's findings, assessment and plan of care. Will follow-up with MRI brain without contrast and EEG for further evaluation to confirm findings consistent with hypoxic brain injury and for prognosis
--- NOTE | 2025-03-10 10:45 | ESPR_ITS ---
<Statement entered by Kev Heck MD - 03/11/25 14:20> Senior Resident Attestation: I supervised/discussed management plan with general internist and physician leader physician Dr. Padilla, and was involved in the care of this patient. I personally saw and examined the patient and discussed the assessment and plan with the entire medicine team, including my attending. I agree with the assessment and plan as documented. Patient's care was discussed with attending physician, Dr. Simmons. Kev Heck MD PGY-2. Documentation for date of: 03/10/25 Subjective Subjective Interval history: No acute overnight events reported. Patient seen and examined bedside this morning, patient does not follow any commands she is on ventilator via tracheostomy and PEG tube feedings are resumed this morning with free water flushes as patient's sodium is increased. Neuro ordered MRI which is severe anoxic brain injury son is notified of the MRI results. Neuro also ordered an EEG and will evaluate the patient and will consider goals of care discussion with family. Repeat labs show sodium to be 153 will repeat labs again and will order D5W if sodium continues to rise. Exam Vital Signs Temp Pulse Resp BP Pulse Ox O2 Del Method FiO2 96.9 F 128 H 28 H 196/116 H 99 Mechanical Ventilation 40 03/10/25 08:00 03/10/25 08:11 03/10/25 08:00 03/10/25 08:11 03/10/25 08:00 03/10/25 08:00 03/10/25 08:00 Narrative Exam Gen: Well-developed elderly female. Global muscle wasting noted.does not follow commands HEENT: NCAT, PERRLA, MMM, anicteric conjunctivae. Unable to track objects with her eyes. tacheostomy present CVS: normal S1 and S2. Regular tachycardia. No M/R/G. Resp: expiratory wheezing B/L. No rhonchi, rales, crackles. Tracheostomy in place, no discharge, on MV. Abd: soft, non-tender, non-distended. BS+ in all 4 quadrants. PEG tube in place and is clean. MSK: Good ROM in BUE & BLE. Multiple bruises and non-pitting edema BUE. Trace edema BLE. Neuro: Limited exam due to medical condition, she is non-verbal, able to follow simple commands. Objective Labs 03/11/25 04:52 03/11/25 04:52 Labs: Laboratory Results - last 24 hr 03/10/25 03/10/25 03/10/25 04:35 04:59 09:15 WBC 17.4 H RBC 3.31 L Hgb 10.3 L Hct 33.8 L MCV 102 H MCH 31.1 MCHC 30.5 L RDW Std Deviation 72.1 H Plt Count 273 D Neut % (Auto) 83 H Lymph % (Auto) 5 L Brantley % (Auto) 11 Eos % (Auto) 0 Baso % (Auto) 0 Neut # (Auto) 14.5 H Lymph # (Auto) 0.9 L Brantley # (Auto) 1.8 H Eos # (Auto) 0.0 Baso # (Auto) 0.0 Immature Gran # (Auto) 0.16 H Absolute Nucleated RBC 0.00 Immature Gran % 1 H Nucleated RBC % 0 Puncture Site Right Radial ABG pH 7.25 L D ABG pCO2 56 H ABG pO2 131 H ABG HCO3 25 ABG O2 Saturation 99 H ABG Base Excess -3 FiO2 40 Sodium 150 H Potassium 3.4 Chloride 106 Carbon Dioxide 23.6 Anion Gap 20 H BUN 23 Creatinine 1.4 H Estim Creat Clear Calc 24.4 L eGFR 40 L BUN/Creatinine Ratio 16 Glucose 112 H D Calculated Osmolality 302 H Lactic Acid 2.4 H 1.1 Calcium 9.7 Corrected Calcium 9.7 Total Bilirubin 0.4 AST 67 H ALT 50 H Alkaline Phosphatase 194 H Total Protein 7.8 Albumin 4.0 D Globulin 3.8 H Albumin/Globulin Ratio 1.1 L ABG Interpretation ABG results: 03/07/25 03/08/25 03/09/25 07:40 04:19 04:15 ABG pH 7.29 L 7.39 D 7.35 ABG pCO2 68 H 55 H D 53 H ABG pO2 489 H 122 H D 133 H ABG HCO3 33 H 34 H 29 H ABG O2 Saturation 101 H 100 H 100 H ABG Base Excess 5 H 8 H 3 03/10/25 04:35 ABG pH 7.25 L D ABG pCO2 56 H ABG pO2 131 H ABG HCO3 25 ABG O2 Saturation 99 H ABG Base Excess -3 Quality Measures Quality Measures VTE prophylaxis Advance care planning discussed with:: child Assessment & Plan Assessment Current Active Medications: Generic Name Dose Route Start Last Admin Trade Name Freq PRN Reason Stop Dose Admin Hydrocodone Bitart/Acetaminophen 1 tab 03/09/25 17:58 03/09/25 21:43 Hydrocodone/Apap 5/325 Tablet PO 03/14/25 17:57 1 tab Q8H PRN Administration PAIN SCALE 4-10(Mod-Sev Al Hydrox/Mg Hydrox/Simethicone 30 ml 03/07/25 08:00 Mg Hyd/Al Hyd/Natalee (Maalox Reg) Susp 30 Ml Udc PO 04/06/25 07:59 Q4HR PRN Heartburn or Upset Stomach Albuterol/Ipratropium 3 ml 03/07/25 16:45 03/08/25 00:59 Albuterol/Ipratropium (Duoneb) Rt Maarnda 3 Ml Nebu INH 04/06/25 16:44 3 ml Q4H PRN Administration SHORTNESS OF BREATH OR WHEEZE Alprazolam 0.5 mg 03/10/25 07:51 03/10/25 08:10 Alprazolam 0.25 Mg Tablet PO 03/15/25 07:50 0.5 mg Q12H PRN Administration Anxiety Amiodarone HCl 200 mg 03/10/25 09:00 03/10/25 08:11 Amiodarone Hcl 200 Mg Tablet PO 04/09/25 08:59 200 mg QDAY LEODAN Administration Cadexomer Iodine 0 gm 03/07/25 21:00 03/09/25 20:21 Cadexomer Iodine Gel 40 Gm Tube TOP 03/14/25 20:59 1 applicatio HS LEODAN Administration Heparin Sodium (Porcine) 5,000 unit 03/09/25 21:00 03/10/25 08:11 Heparin Sod Inj 5000 Unit/Ml Vial SC 03/23/25 20:59 5,000 unit Q12HR LEODAN Administration Piperacillin/Tazobactam/Dextrose 3.375 gm in 50 mls @ 12.5 mls/hr 03/07/25 22:00 03/10/25 05:06 Zosyn IV 03/14/25 21:59 12.5 mls/hr Q8HR LEODAN Administration Vancomycin/Sodium Chloride 750 mg in 150 mls @ 120 mls/hr 03/10/25 10:00 Vancomycin/Ns 750 Mg Ivpb IV 03/17/25 09:59 Q24H LEODAN Magnesium Hydroxide 30 ml 03/07/25 08:00 Milk Of Magnesia Susp 30 Ml Udc PO 04/06/25 07:59 QDAY PRN CONSTIPATION Nitroglycerin 0.4 mg 03/07/25 08:00 Nitroglycerin 0.4 Mg Subl Btl #25 SL Q5MIN PRN CHEST PAIN Pharmacy Consult 1 each 03/07/25 11:00 Vancomycin Pharmacy To Dose 1 Each Each IV 04/06/25 10:59 QDAY PRN CONSULT Plan Patient is a 70 years old female with PMH of end stage COPD s/p tracheostomy, atrial fibrillation on amidodarone, chronic anemia was downgraded from ICU to medical floor. She initially presented from subacute after cardiac arrest and subsequent ROSC. Subacute stuff reported her ventilator began alarming and RT went to bedside to assess patient and noticed no ET CO2 on the ventilator and patient was in asystole. Patient was taken off ventilator, bagged with no return of CO2 and compressions started. Jesus blue called and emergency personnel from [place] ED arrived. In the meantime, RT was able to recannulate the tracheostomy stoma and advance an endotracheal tube in. Total ACLS time 26 minutes with a total of 3mg epinephrine given IV before ROSC was obtained. Patient was transported immediately to the ED at [place] and ICU team was consulted and she was started on pressors support. 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 Brain MRI was held. Today she was able to follow simple commands. Urine output was low but improving. Levophed was discontinued yesterday and BP was stable. She was downgraded to medical floor for continuation of care. Per ICU team thy recommend to continue antibiotics till 03/14/2025. #Acute encephalopathy following cardiac arrest with prolonged down time #Anoxic brain injury, severe - Patient withdraws from painful stimuli. - Corneal reflexes present. - Opens eyes to command. 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 -MRI of brain : Bilateral severe ischemic/anoxic change, basal ganglia, periventricular, diffuse cerebral gyri Plan: - continue monitoring -Neuro consulted, pending evaluation -EEG done, pending read -Will consider goals of care discussion after neuro evaluation #Hypernatremia -Na 150 this morning labs, resumed free water flushes with PEG tube feedings -Increased free water flushed to 60l/hr -free water deficit is 1.6L -Will repeat labs, if Na continues to increase then will start D5W #Status post cardiac arrest. #Hx of Afib. #Hypotension, resolved. - Patient down for 18 minutes prior to CPR initiation. Subsequent 8 minutes of CPR with 3mg epinephrine administered - Etiology of code likely 2/2 hypercarbic hypoxic respiratory failure from trach migration - Maintain normothermia - Patient was hypotensive but now normotensive after transport to ICU. Levophed gtt off for more than 24 hrs. Plan: - continue close telemetry HR and BP monitoring. - resume amiodarone 200 mg daily tomorrow AM. #End stage COPD s/p tracheostomy. #Mechanically ventilated. Plan: - continue MV with current settings TV 375, RR 22, FiO2 40%. #Sepsis 2/2 UTI. - Chronic indwelling Hunter catheter had copious sediment and purulent appearing urine, Hunter was changed. - UA was positive for UTI. Cultures taken. - Per ICU recs continue ABx till 03/14/2025. Plan: - Zosyn 3.375mg q6hr (03/07 - ). - Vancomycin dosing per pharmacy (03/07 - ). - Pending urine culture results. #PEG tube feeds. Plan: - resume tube feeds tomorrow AM. #Chronic anemia. - Hgb 7.5. Plan: - monitor with daily CBC. - transfuse if Hgb below 7. Disposition: Patient downgraded from ICU post cardiac arrest. Diet and fluids: PEG tube feeds resumed DVT prophylaxis:Heparin GI prophylaxis:None CODE STATUS: Full code, ICU team discussed plan of care with patient's son. Hunter: In place. Lines: Peripheral. Assessment and plan discussed with my senior resident Dr. Heck & attending physician Dr. Iris Padilla (PGY-1)- Internal medicine resident Attending Provider Attestation/Addendum I attest that I was physically present for the evaluation, physical examination, lab and imaging review of the patient with the residents. I discussed the case with the residents and agree with the findings and plans of care as documented above. At bedside today, patient appears less responsive compared to yesterday.? She winces on pain, but has not been opening her eyes.? Babinski is upgoing bilaterally.? Continues to be on mechanical ventilator.? Discussed with neurology, recommended EEG and brain MRI. Lab results show elevation in WBC from 14.1-17.4.? Patient continues to be on IV vancomycin and Zosyn.? Noted to have sodium of 150 this morning, BUN/4 creatinine worsened to 23/1.4.? Discussed with registered dietitian, started patient on tube feeding.? Patient's free water deficit is 0.6 L, accounting for 1 L insensible loss, we will start her on 60 cc/h of free water flushes.? We will also monitor her renal panel closely.? Liver function noted to be improved slightly.? With the prolonged downtime before ROSC, findings of neurological evaluation, suspicion for anoxic brain injury, prognosis appears poor. Marielena Simmons MD
[2025-03-10] MEDS: VANCOMYCIN/NS 750 MG IVPB 750 MG/150 ML BAG 120 MG IV (10:50)
[2025-03-10 13:57] LABS: Albumin, Serum 3.6 gm/dL (3.4-4.8); Anion Gap 18 (7-16); BUN/Creatinine Ratio 16 Ratio (12-20); Blood Urea Nitrogen 22 mg/dL (9-23); Calcium 9.2 mg/dL (8.3-10.6); Calcium (Corrected) 9.5 mg/dL (8.5-10.1); Carbon Dioxide 23.7 mMol/L (20.0-31.0); Chloride 111 mMol/L (98-107); Creatinine (Component) 1.4 mg/dL (0.6-1.3); Estimated Creatinine Clearance 24.3 mL/min (>60); Glucose 93 mg/dL (74-106); Osmolality,Calculated 306 (275-295); Phosphorous 2.7 mg/dL (2.4-5.1); Potassium 3.3 mMol/L (3.4-5.1); Sodium 153 mMol/L (136-145); eGFR 40 See Note
--- NOTE | 2025-03-10 15:17 | PC.SS ---
Rounding Note: MRI pending. Neurology providing consultation.
--- NOTE | 2025-03-10 15:24 | RESP.EEG ---
EEG ready to be read
[2025-03-10 19:38] LABS: Albumin, Serum 3.9 gm/dL (3.4-4.8); Anion Gap 21 (7-16); BUN/Creatinine Ratio 14 Ratio (12-20); Blood Urea Nitrogen 21 mg/dL (9-23); Calcium 10.1 mg/dL (8.3-10.6); Calcium (Corrected) 10.2 mg/dL (8.5-10.1); Carbon Dioxide 22.3 mMol/L (20.0-31.0); Chloride 110 mMol/L (98-107); Creatinine (Component) 1.5 mg/dL (0.6-1.3); Estimated Creatinine Clearance 22.7 mL/min (>60); Glucose 99 mg/dL (74-106); Osmolality,Calculated 306 (275-295); Phosphorous 2.8 mg/dL (2.4-5.1); Potassium 3.7 mMol/L (3.4-5.1); Sodium 153 mMol/L (136-145); eGFR 37 See Note
[2025-03-10] MEDS: CADEXOMER IODINE GEL 40 GM TUBE TOP (21:40)
[2025-03-11] VITALS (11 sets, daily range): BP systolic 106–154; BP diastolic 73–94; PULSE 96–117; RESP 15–26; TEMP 36.2–36.8; O2SAT 98–100; BMI 16.9
[2025-03-11] MEDS: HYDROcodone/APAP 5/325 TABLET 1 TAB PO ×2 (04:49→15:52)
[2025-03-11] MEDS: PIPER/TAZO 3.375 GM PREMIX 3.375 GM/50 ML BAG IV ×3 (05:20→21:28)
[2025-03-11 05:36] LABS: Basophils % (Auto) 0 % (0-2.5); Eosinophils % (Auto) 0 % (0-10); Hematocrit 36.2 % (36.0-46.0); Hemoglobin 11.2 g/dL (12.0-16.0); Immature Granulocytes % (Auto) 1 % (0-0); Immature Granulocytes Auto 0.14 Thou/mm3 (0.00-0.00); Lymphocytes # (Auto) 1.8 Thou/mm3 (1.0-4.8); Lymphocytes % (Auto) 10 % (10-50); Mean Corpuscular HGB Conc 30.9 g/dl (31.0-37.0); Mean Corpuscular Hemoglobin 31.4 pg (25.0-35.0); Mean Corpuscular Volume 101 fL (80-100); Monocytes % (Auto) 11 % (0-12); Neutrophils # (Auto) 14.4 Thou/mm3 (1.8-7.7); Neutrophils % (Auto) 79 % (37-80); Nucleated Red Blood Cell % 0 /100 WBC (0); Platelet Count 301 Thou/mm3 (140-440); RDW Standard Deviation 70.5 fL (36.4-46.3); Red Blood Count 3.57 Miln/mm3 (4.00-5.20); White Blood Count 18.3 Thou/mm3 (3.6-11.0)
[2025-03-11 06:04] LABS: Alanine Aminotransferase 43 U/L (10-49); Albumin, Serum 4.1 gm/dL (3.4-4.8); Albumin/Globulin Ratio 1.1 (1.2-2.2); Alkaline Phosphatase 177 U/L (46-116); Anion Gap 16 (7-16); Aspartate Amino Transferase 72 U/L (0-34); BUN/Creatinine Ratio 14 Ratio (12-20); Bilirubin,Total 0.4 mg/dL (0.3-1.2); Blood Urea Nitrogen 21 mg/dL (9-23); Calcium 9.9 mg/dL (8.3-10.6); Calcium (Corrected) 9.9 mg/dL (8.5-10.1); Carbon Dioxide 28.5 mMol/L (20.0-31.0); Chloride 112 mMol/L (98-107); Creatinine (Component) 1.5 mg/dL (0.6-1.3); Estimated Creatinine Clearance 22.7 mL/min (>60); Globulin 3.9 gm/dL (2.3-3.5); Glucose 115 mg/dL (74-106); Osmolality,Calculated 313 (275-295); Sodium 156 mMol/L (136-145); eGFR 37 See Note
[2025-03-11] MEDS: DEXTROSE 5%-WATER 1,000 ML 75 ML IV (07:25)
[2025-03-11] MEDS: POTASSIUM CHLORIDE 10% 20 MEQ/15 ML UDC 40 MEQ GT ×2 (08:07→10:23)
[2025-03-11] MEDS: HEPARIN SOD INJ 5000 UNIT/ML VIAL SC ×2 (08:07→20:46)
[2025-03-11] MEDS: AMIODARONE HCL 200 MG TABLET PO (08:07)
--- NOTE | 2025-03-11 09:45 | ESPR_ITS ---
<Statement entered by Kev Heck MD - 03/12/25 09:38> Senior Resident Attestation: I supervised/discussed management plan with internal medicine hospitalist physician Dr. Padilla, and was involved in the care of this patient. I personally saw and examined the patient and discussed the assessment and plan with the entire medicine team, including my attending. I agree with the assessment and plan as documented. Patient's care was discussed with attending physician, Dr. Simmons. Kev Heck MD PGY-2. Documentation for date of: 03/11/25 Subjective Subjective Interval history: Overnight team reported patient's sodium continued to rise to 156 and patient was started on D5W. Patient is seen and examined at bedside this morning patient is not following any commands and does not respond to any painful stimuli. Per neurology EEG is read and shows diffuse anoxic brain injury. Updated patient's son on the new findings and goals of care discussion will be held today when the patient arrives at bedside. Exam Vital Signs Temp Pulse Resp BP Pulse Ox O2 Del Method FiO2 97.3 F 109 H 20 129/85 H 98 Mechanical Ventilation 40 03/11/25 08:00 03/11/25 08:07 03/11/25 08:00 03/11/25 08:07 03/11/25 08:00 03/11/25 08:00 03/11/25 08:00 Narrative Exam GENERAL: Well-developed elderly female. Global muscle wasting noted.does not follow commands NEURO: unable to asses due to anoxic brain injruy HEENT: Atraumatic, Normocephalic. mucous membranes moist. HEART: Normal Heart Sounds LUNGS: mechanical ventillation breath sounds heard ABDOMEN: soft, non-distended SKIN: No Rash or ecchymoses, bruising at IV sites EXTREMITIES: No edema, pedal pulses palpated, not able to move any of her extremities Objective Labs 03/11/25 04:52 03/11/25 23:50 Labs: Laboratory Results - last 24 hr 03/10/25 03/10/25 03/11/25 13:25 18:57 04:52 WBC 18.3 H RBC 3.57 L Hgb 11.2 L Hct 36.2 MCV 101 H MCH 31.4 MCHC 30.9 L RDW Std Deviation 70.5 H Plt Count 301 Neut % (Auto) 79 Lymph % (Auto) 10 Faulkner % (Auto) 11 Eos % (Auto) 0 Baso % (Auto) 0 Neut # (Auto) 14.4 H Lymph # (Auto) 1.8 Faulkner # (Auto) 2.0 H Eos # (Auto) 0.0 Baso # (Auto) 0.0 Immature Gran # (Auto) 0.14 H Absolute Nucleated RBC 0.00 Immature Gran % 1 H Nucleated RBC % 0 Sodium 153 H 153 H 156 H Potassium 3.3 L 3.7 3.0 L D Chloride 111 H 110 H 112 H Carbon Dioxide 23.7 22.3 28.5 Anion Gap 18 H 21 H 16 BUN 22 21 21 Creatinine 1.4 H 1.5 H 1.5 H Estim Creat Clear Calc 24.3 L 22.7 L 22.7 L eGFR 40 L 37 L 37 L BUN/Creatinine Ratio 16 14 14 Glucose 93 99 115 H Calculated Osmolality 306 H 306 H 313 H Calcium 9.2 10.1 9.9 Corrected Calcium 9.5 10.2 H 9.9 Phosphorus 2.7 2.8 Total Bilirubin 0.4 AST 72 H ALT 43 Alkaline Phosphatase 177 H Total Protein 8.0 Albumin 3.6 3.9 4.1 Globulin 3.9 H Albumin/Globulin Ratio 1.1 L ABG Interpretation ABG results: 03/07/25 03/08/25 03/09/25 07:40 04:19 04:15 ABG pH 7.29 L 7.39 D 7.35 ABG pCO2 68 H 55 H D 53 H ABG pO2 489 H 122 H D 133 H ABG HCO3 33 H 34 H 29 H ABG O2 Saturation 101 H 100 H 100 H ABG Base Excess 5 H 8 H 3 03/10/25 04:35 ABG pH 7.25 L D ABG pCO2 56 H ABG pO2 131 H ABG HCO3 25 ABG O2 Saturation 99 H ABG Base Excess -3 Quality Measures Quality Measures VTE prophylaxis Advance care planning discussed with:: child (Son) Assessment & Plan Assessment Current Active Medications: Generic Name Dose Route Start Last Admin Trade Name Freq PRN Reason Stop Dose Admin Hydrocodone Bitart/Acetaminophen 1 tab 03/09/25 17:58 03/11/25 04:49 Hydrocodone/Apap 5/325 Tablet PO 03/14/25 17:57 1 tab Q8H PRN Administration PAIN SCALE 4-10(Mod-Sev Al Hydrox/Mg Hydrox/Simethicone 30 ml 03/07/25 08:00 Mg Hyd/Al Hyd/Natalee (Maalox Reg) Susp 30 Ml Udc PO 04/06/25 07:59 Q4HR PRN Heartburn or Upset Stomach Albuterol/Ipratropium 3 ml 03/07/25 16:45 03/08/25 00:59 Albuterol/Ipratropium (Duoneb) Rt Maranda 3 Ml Nebu INH 04/06/25 16:44 3 ml Q4H PRN Administration SHORTNESS OF BREATH OR WHEEZE Alprazolam 0.5 mg 03/10/25 07:51 03/10/25 08:10 Alprazolam 0.25 Mg Tablet PO 03/15/25 07:50 0.5 mg Q12H PRN Administration Anxiety Amiodarone HCl 200 mg 03/10/25 09:00 03/11/25 08:07 Amiodarone Hcl 200 Mg Tablet PO 04/09/25 08:59 200 mg QDAY LEODAN Administration Cadexomer Iodine 0 gm 03/07/25 21:00 03/10/25 21:40 Cadexomer Iodine Gel 40 Gm Tube TOP 03/14/25 20:59 1 applicatio HS LEODAN Administration Heparin Sodium (Porcine) 5,000 unit 03/09/25 21:00 03/11/25 08:07 Heparin Sod Inj 5000 Unit/Ml Vial SC 03/23/25 20:59 5,000 unit Q12HR LEODAN Administration Piperacillin/Tazobactam/Dextrose 3.375 gm in 50 mls @ 12.5 mls/hr 03/07/25 22:00 03/11/25 05:20 Zosyn IV 03/14/25 21:59 12.5 mls/hr Q8HR LEODAN Administration Vancomycin/Sodium Chloride 750 mg in 150 mls @ 120 mls/hr 03/10/25 10:00 03/10/25 19:24 Vancomycin/Ns 750 Mg Ivpb IV 03/17/25 09:59 Infused Q24H LEODAN Infusion Dextrose 1,000 mls @ 75 mls/hr 03/11/25 06:45 03/11/25 07:25 D5w IV 04/10/25 06:44 75 mls/hr .[id number] LEODAN Administration Magnesium Hydroxide 30 ml 03/07/25 08:00 Milk Of Magnesia Susp 30 Ml Udc PO 04/06/25 07:59 QDAY PRN CONSTIPATION Nitroglycerin 0.4 mg 03/07/25 08:00 Nitroglycerin 0.4 Mg Subl Btl #25 SL Q5MIN PRN CHEST PAIN Pharmacy Consult 1 each 03/07/25 11:00 Vancomycin Pharmacy To Dose 1 Each Each IV 04/06/25 10:59 QDAY PRN CONSULT Plan Patient is a 70 years old female with PMH of end stage COPD s/p tracheostomy, atrial fibrillation on amidodarone, chronic anemia was downgraded from ICU to medical floor. She initially presented from subacute after cardiac arrest and subsequent ROSC. Subacute stuff reported her ventilator began alarming and RT went to bedside to assess patient and noticed no ET CO2 on the ventilator and patient was in asystole. Patient was taken off ventilator, bagged with no return of CO2 and compressions started. Code blue called and emergency personnel from [place] ED arrived. In the meantime, RT was able to recannulate the tracheostomy stoma and advance an endotracheal tube in. Total ACLS time 26 minutes with a total of 3mg epinephrine given IV before ROSC was obtained. Patient was transported immediately to the ED at [place] and ICU team was consulted and she was started on pressors support. 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 Brain MRI was held. Today she was able to follow simple commands. Urine output was low but improving. Levophed was discontinued yesterday and BP was stable. She was downgraded to medical floor for continuation of care. Per ICU team thy recommend to continue antibiotics till 03/14/2025. #Acute encephalopathy following cardiac arrest with prolonged down time #Anoxic brain injury, severe - Patient withdraws from painful stimuli. - Corneal reflexes present. - Opens eyes to command. 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 -MRI of brain : Bilateral severe ischemic/anoxic change, basal ganglia, periventricular, diffuse cerebral gyri -EEG is evident of diffuse slowing, Plan: - continue monitoring -Neuro consulted, pending evaluation -Goals of care discussion will be held today #Hypernatremia -Na 150 this morning labs, resumed free water flushes with PEG tube feedings -Increased free water flushed to 60l/hr -free water deficit is 3.1L -Sodium checks Q4H, D5W started #Status post cardiac arrest. #Hx of Afib. #Hypotension, resolved. - Patient down for 18 minutes prior to CPR initiation. Subsequent 8 minutes of CPR with 3mg epinephrine administered - Etiology of code likely 2/2 hypercarbic hypoxic respiratory failure from trach migration - Maintain normothermia - Patient was hypotensive but now normotensive after transport to ICU. Levophed gtt off for more than 24 hrs. Plan: - continue close telemetry HR and BP monitoring. - resume amiodarone 200 mg daily tomorrow AM. #End stage COPD s/p tracheostomy. #Mechanically ventilated. Plan: - continue MV with current settings TV 375, RR 22, FiO2 40%. #Sepsis 2/2 UTI. - Chronic indwelling Hunter catheter had copious sediment and purulent appearing urine, Hunter was changed. - UA was positive for UTI. Cultures taken. - Per ICU recs continue ABx till 03/14/2025. Plan: - Zosyn 3.375mg q6hr (03/07 - ). - Vancomycin dosing per pharmacy (03/07 - ). - Pending urine culture results. #PEG tube feeds. Plan: - resume tube feeds tomorrow AM. #Chronic anemia. - Hgb 7.5. Plan: - monitor with daily CBC. - transfuse if Hgb below 7. Disposition: Patient downgraded from ICU post cardiac arrest. Diet and fluids: PEG tube feeds resumed DVT prophylaxis:Heparin GI prophylaxis: None CODE STATUS: Full code, ICU team discussed plan of care with patient's son. Hunter: In place. Lines: Peripheral. Assessment and plan discussed with my senior resident Dr. Heck & attending physician Dr. Iris Padilla (PGY-1)- Internal medicine resident Attending Provider Attestation/Addendum I attest that I was physically present for the evaluation, physical examination, lab and imaging review of the patient with the residents. I discussed the case with the residents and agree with the findings and plans of care as documented above. At bedside, patient only responds to vigorous sternal rubbing, unable to elicit plantar reflex, does not open her eyes. Continues to be on mechanical ventilator. MRI brain ordered yesterday showed findings suggestive of anoxic brain injury. EEG done yesterday also suggestive of anoxic brain injury. Neurology following, appreciate recommendations. Patient's sodium level noted to be uptrending as well, she continues to be on tube feeding along with 60 cc/h of free water flushes. Increased her D5W rate from 75 cc/h to 100 cc/h. We will continue to monitor closely with every 4 hours renal panel. Discussed with patient's family in detail regarding goals of care. Explained in detail about patient's current condition, her lab results, imaging results. Explained about her poor prognosis with ongoing anoxic brain injury. Presented with all treatment options including aggressive treatment therapy and comfort measures. Family at this time decided to change her CODE STATUS from full code to DNR/DNI. They also wish to continue current treatment until the brother arrives from [place] before transitioning him to comfort care measures. Marielena Simmons MD
[2025-03-11 10:16] LABS: Sodium 158 mMol/L (136-145)
[2025-03-11] MEDS: VANCOMYCIN/NS 750 MG IVPB 750 MG/150 ML BAG 120 MG IV (10:23)
--- NOTE | 2025-03-11 10:24 | CHAP ---
Visited patient and said a silent prayer by the door as she was sleeping.
--- NOTE | 2025-03-11 11:50 | CHAP ---
Patient was visited by the Spiritual Care Volunteer who prayed for them. (Volunteer was in the hospital from 11:05-11:50.)
[2025-03-11 12:34] LABS: Sodium 159 mMol/L (136-145)
--- NOTE | 2025-03-11 14:49 | PC.SS ---
Rounding Note: Goals of care discussion planned for today.
--- NOTE | 2025-03-11 16:07 | PC.SS ---
SEASONING SPRAYER confirmed with patient's son, Francisco Javier Blakely; presence at 06:00 pm today for GOC discussion. SEASONING SPRAYER updated resident team.
[2025-03-11] MEDS: ALPRazoLAM 0.25 MG TABLET 0.5 MG PO (16:08)
[2025-03-11 16:24] LABS: Sodium 158 mMol/L (136-145)
--- NOTE | 2025-03-11 18:43 | PD.RESEVENT ---
Documentation for date of: 03/11/25 Event Note Event Note: Goals of care discussion was initiated with the patient's family including her son Rosalio Blakely and his . We reviewed the patient's hospital course, ongoing management and potential risks and benefits of any aggressive treatments and/or interventions. Patient is status post cardiac arrest and repeat imaging is evident of severe anoxic brain injury found on MRI of the brain and diffuse slowing on EEG. All treatment options have been discussed at length. The family was given time to ask questions; all of their questions were answered to satisfaction with understanding of the patient's prognosis and the family had made the decision to transition to comfort care with direct focus on comfort care and symptom control once the brother from [place] arrives. Pt's son Rosalio do understand that Ms. Blakely may decline overnight and he does not want any resuscitation measures at that time and would like to change the CODE STATUS FROM FULL CODE TO DNR NOW. Pt's son wishes are that his uncle gets to see his mom however does understand that she may decline anytime and if that happens at anytime pt son ROSALIO would like to be notified immediately and would like his mother to comfortable. Patient showed good understanding of what his mother's current state of health, however he wants to continue labs draw to be able to monitor if there is anything that can be acutely fixed on labs to extend her time so his uncle can see her if possible. Assessment and plan discussed with my attending physician Dr. Iris Padilla (PGY-1)- Internal medicine resident
[2025-03-11 19:58] LABS: Sodium 154 mMol/L (136-145)
[2025-03-11] MEDS: CADEXOMER IODINE GEL 40 GM TUBE TOP (20:46)
[2025-03-11] MEDS: DEXTROSE 5%-WATER 1,000 ML 100 ML IV (20:52)
[2025-03-12] VITALS (10 sets, daily range): BP systolic 116–161; BP diastolic 83–118; PULSE 94–119; RESP 16–47; TEMP 36.2–36.7; O2SAT 96–100; BMI 16.5
[2025-03-12] MEDS: HYDROcodone/APAP 5/325 TABLET 1 TAB PO (00:03)
[2025-03-12 00:08] LABS: Sodium 151 mMol/L (136-145)
[2025-03-12] MEDS: ALBUTEROL/IPRATROPIUM (Duoneb) RT SOL 3 ML NEBU INH (05:01)
[2025-03-12 05:18] LABS: Base Excess 5 (-3-3); HCO3 32 mEq/L (20-26); Inspired Oxygen, FIO2 100 %; O2 Saturation 100 % (91-98); PCO2 55 mmHg (32.0-48.0); PO2 170 mmHg (83-108); pH, Arterial 7.37 (7.35-7.45)
[2025-03-12 05:20] LABS: Allen Test Not Performed; Puncture Site Left Radial
[2025-03-12] MEDS: PIPER/TAZO 3.375 GM PREMIX 3.375 GM/50 ML BAG IV (05:20)
[2025-03-12] MEDS: AMIODARONE HCL 200 MG TABLET PO (08:42)
[2025-03-12] MEDS: HEPARIN SOD INJ 5000 UNIT/ML VIAL SC (08:42)
[2025-03-12] MEDS: DEXTROSE 5%-WATER 1,000 ML 50 ML IV (09:54)
--- NOTE | 2025-03-12 10:08 | PD.RESPRO ---
Documentation for date of: 03/12/25 Subjective Subjective Interval history: overnight team reported pt right hand degloved, and were unable to draw labs, including sodium checks due to blood clotting. Pt is seen at bedside and pt has increased work of agonal breathing despite on mechanical ventilation. Pt family is at bedside and have decided to proceed with comfort care as pts family have arrived to be at bedside, including pt's brother, his , pts nemechelle, pt's son and his . Exam Vital Signs Temp Pulse Resp BP Pulse Ox O2 Del Method FiO2 97.5 F 99 16 116/83 100 Mechanical Ventilation 40 03/12/25 08:00 03/12/25 08:42 03/12/25 08:00 03/12/25 08:42 03/12/25 08:00 03/12/25 08:00 03/12/25 08:00 Narrative Exam GENERAL: Well-developed elderly female. Global muscle wasting noted.does not follow commands, appears to be in respiratory distress NEURO: unable to asses due to anoxic brain injruy HEENT: Atraumatic, Normocephalic. mucous membranes moist. HEART: Normal Heart Sounds LUNGS: mechanical ventillation breath sounds heard ABDOMEN: soft, non-distended SKIN: No Rash or ecchymoses, bruising at IV sites EXTREMITIES: No edema, pedal pulses palpated, not able to move any of her extremities Objective Labs 03/11/25 04:52 03/11/25 23:50 Labs: Laboratory Results - last 24 hr 03/11/25 03/11/25 03/11/25 09:05 11:55 15:46 Puncture Site ABG pH ABG pCO2 ABG pO2 ABG HCO3 ABG O2 Saturation ABG Base Excess FiO2 Sodium 158 H 159 H 158 H 03/11/25 03/11/25 03/12/25 19:38 23:50 05:11 Puncture Site Left Radial ABG pH 7.37 D ABG pCO2 55 H ABG pO2 170 H D ABG HCO3 32 H ABG O2 Saturation 100 H ABG Base Excess 5 H FiO2 100 Sodium 154 H 151 H ABG Interpretation ABG results: 03/07/25 03/08/25 03/09/25 07:40 04:19 04:15 ABG pH 7.29 L 7.39 D 7.35 ABG pCO2 68 H 55 H D 53 H ABG pO2 489 H 122 H D 133 H ABG HCO3 33 H 34 H 29 H ABG O2 Saturation 101 H 100 H 100 H ABG Base Excess 5 H 8 H 3 03/10/25 03/12/25 04:35 05:11 ABG pH 7.25 L D 7.37 D ABG pCO2 56 H 55 H ABG pO2 131 H 170 H D ABG HCO3 25 32 H ABG O2 Saturation 99 H 100 H ABG Base Excess -3 5 H Quality Measures Quality Measures VTE prophylaxis Advance care planning discussed with:: patient Assessment & Plan Assessment Current Active Medications: Generic Name Dose Route Start Last Admin Trade Name Freq PRN Reason Stop Dose Admin Hydrocodone Bitart/Acetaminophen 1 tab 03/09/25 17:58 03/12/25 00:03 Hydrocodone/Apap 5/325 Tablet PO 03/14/25 17:57 1 tab Q8H PRN Administration PAIN SCALE 4-10(Mod-Sev Al Hydrox/Mg Hydrox/Simethicone 30 ml 03/07/25 08:00 Mg Hyd/Al Hyd/Natalee (Maalox Reg) Susp 30 Ml Udc PO 04/06/25 07:59 Q4HR PRN Heartburn or Upset Stomach Albuterol/Ipratropium 3 ml 03/07/25 16:45 03/12/25 05:01 Albuterol/Ipratropium (Duoneb) Rt Maranda 3 Ml Nebu INH 04/06/25 16:44 3 ml Q4H PRN Administration SHORTNESS OF BREATH OR WHEEZE Alprazolam 0.5 mg 03/10/25 07:51 03/11/25 16:08 Alprazolam 0.25 Mg Tablet PO 03/15/25 07:50 0.5 mg Q12H PRN Administration Anxiety Amiodarone HCl 200 mg 03/10/25 09:00 03/12/25 08:42 Amiodarone Hcl 200 Mg Tablet PO 04/09/25 08:59 200 mg QDAY LEODAN Administration Cadexomer Iodine 0 gm 03/07/25 21:00 03/11/25 20:46 Cadexomer Iodine Gel 40 Gm Tube TOP 03/14/25 20:59 1 applicatio HS LEODAN Administration Heparin Sodium (Porcine) 5,000 unit 03/09/25 21:00 03/12/25 08:42 Heparin Sod Inj 5000 Unit/Ml Vial SC 03/23/25 20:59 5,000 unit Q12HR LEODAN Administration Piperacillin/Tazobactam/Dextrose 3.375 gm in 50 mls @ 12.5 mls/hr 03/07/25 22:00 03/12/25 05:20 Zosyn IV 03/14/25 21:59 12.5 mls/hr Q8HR LEODAN Administration Vancomycin/Sodium Chloride 750 mg in 150 mls @ 120 mls/hr 03/10/25 10:00 03/11/25 10:23 Vancomycin/Ns 750 Mg Ivpb IV 03/17/25 09:59 120 mls/hr Q24H LEODAN Administration Dextrose 1,000 mls @ 50 mls/hr 03/12/25 02:54 03/12/25 09:54 D5w IV 04/11/25 02:53 50 mls/hr .Q20H LEODAN Administration Magnesium Hydroxide 30 ml 03/07/25 08:00 Milk Of Magnesia Susp 30 Ml Udc PO 04/06/25 07:59 QDAY PRN CONSTIPATION Nitroglycerin 0.4 mg 03/07/25 08:00 Nitroglycerin 0.4 Mg Subl Btl #25 SL Q5MIN PRN CHEST PAIN Pharmacy Consult 1 each 03/07/25 11:00 Vancomycin Pharmacy To Dose 1 Each Each IV 04/06/25 10:59 QDAY PRN CONSULT Plan Patient is a 70 years old female with PMH of end stage COPD s/p tracheostomy, atrial fibrillation on amidodarone, chronic anemia was downgraded from ICU to medical floor. She initially presented from subacute after cardiac arrest and subsequent ROSC. Subacute stuff reported her ventilator began alarming and RT went to bedside to assess patient and noticed no ET CO2 on the ventilator and patient was in asystole. Patient was taken off ventilator, bagged with no return of CO2 and compressions started. Code blue called and emergency personnel from [place] ED arrived. In the meantime, RT was able to recannulate the tracheostomy stoma and advance an endotracheal tube in. Total ACLS time 26 minutes with a total of 3mg epinephrine given IV before ROSC was obtained. Patient was transported immediately to the ED at [place] and ICU team was consulted and she was started on pressors support. 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 Brain MRI show severe anoxic brain injury #Comfort care started- 03/12 ON 03/11: Goals of care discussion was initiated with the patient's family including her son Rosalio Blakely and his . We reviewed the patient's hospital course, ongoing management and potential risks and benefits of any aggressive treatments and/or interventions. Patient is status post cardiac arrest and repeat imaging is evident of severe anoxic brain injury found on MRI of the brain and diffuse slowing on EEG. All treatment options have been discussed at length. The family was given time to ask questions; all of their questions were answered to satisfaction with understanding of the patient's prognosis and the family had made the decision to transition to comfort care with direct focus on comfort care and symptom control once the brother from [place] arrives. Pt's son Rosalio do understand that Ms. Blakely may decline overnight and he does not want any resuscitation measures at that time and would like to change the CODE STATUS FROM FULL CODE TO DNR NOW. Pt's son wishes are that his uncle gets to see his mom however does understand that she may decline anytime and if that happens at anytime pt son ROSALIO would like to be notified immediately and would like his mother to comfortable. Patient showed good understanding of what his mother's current state of health, however he wants to continue labs draw to be able to monitor if there is anything that can be acutely fixed on labs to extend her time so his uncle can see her if possible. #Acute encephalopathy following cardiac arrest with prolonged down time #Anoxic brain injury, severe #Hypernatremia #Status post cardiac arrest. #Hx of Afib. #Hypotension, resolved. #End stage COPD s/p tracheostomy. #Mechanically ventilated. #Sepsis 2/2 UTI. #PEG tube feeds. #Chronic anemia. Assessment and plan discussed with my attending physician Dr. Iris Padilla (PGY-1)- Internal medicine resident Attending Provider Attestation/Addendum I attest that I was physically present for the evaluation, physical examination, lab and imaging review of the patient with the residents. I discussed the case with the residents and agree with the findings and plans of care as documented above. Overnight, patient had degloving of her right hand, unable to draw her labs due to blood clotting. Sodium level from the last draw has improved but still high. At bedside, patient noted to be having respiratory distress. Family at bedside updated on patient's condition, discussed about goals of care. Family has decided to proceed with comfort care measures. Started patient on comfort care measures with withdrawal of aggressive medical management. Marielena Simmons MD
[2025-03-12] MEDS: MORPHINE SULF INJ 10 MG/ML VIAL 2 MG IVP ×5 (11:41→17:05)
--- NOTE | 2025-03-12 11:45 | PC.NURSE ---
notified this nurse that the plan was to transition the patient to comfort care at approximately 1130. Donor network was called with an update at 1135, and shanda Corona was reached. He stated that it is ok to continue with all comfort measures and to notify donor network upon time of cardiac .
[2025-03-12] MEDS: SCOPOLAMINE 1 MG TDSY TOP (13:11)
[2025-03-12] MEDS: LORazepam 2 MG/ML VIAL 1 MG IVP ×3 (14:11→17:05)
[2025-03-12] MEDS: Morphine IV Drip 100mg/100ml 100 ML IV (16:08)
--- NOTE | 2025-03-12 17:48 | DES_ITS ---
<Statement entered by Francisco Javier Miguel MD - 03/15/25 08:40> Patient seen and examined at bedside with resident. Time of confirmed 1743 Francisco Javier Miguel MD Documentation for date of: 03/12/25 Pronouncement Note Date and Time of Date of : 03/12/25 Time of : 17:44 PCOD Preliminary cause of : Cardiopulmonary arrest Summary Additional details: Recieved a call from nursing for unresponsiveness and asystole on telemetry around 17:30. On exam the patient did not respond to verbal or physical stimuli. Absent heart and breath sounds for 1 minute. Absent peripheral pulses. Pupils are fixed and dilated. Corneal reflex absent. Patient pronounced at 17:44. Dr. Miguel notified. Patient's family at bedside notified. Case discussed with Attending Dr. Miguel. Boris Cornell PGY1 Disclaimer: This note was dictated by speech recognition. Minor errors in set key driver may be present due to voice recognition software. Additional Data Confirmation of : no pulse, no respirations, no heart sounds, pupils fixed and dilated and other (Absent corneal reflex) Family: at bedside Additional persons at bedside: other (nurse) Attending/PCP notified?: Yes Attending physician: Francisco Javier Miguel MD Was code activated?: No
== END 2025-03-12 17:44 | disposition expired | DRG 208 ==
LOC: SERX 07:32 → SERHOLD 08:25 → S2SX 10:39 → S2NX 03-09 17:39
PROVIDERS: Admitting Provider Internal Medicine Critical Care Medicine; Emergency Provider Emergency Medicine; PCP Specialist; Visit Provider Student in an Organized Health Care Education/Training Program
DX: J95.03 Malfunction of tracheostomy stoma (principal); A41.9 Sepsis, unspecified organism; R40.20 Unspecified coma; J96.21 Acute and chronic respiratory failure with hypoxia; J96.22 Acute and chronic respiratory failure with hypercapnia; G93.6 Cerebral edema; N39.0 Urinary tract infection, site not specified; E87.0 Hyperosmolality and hypernatremia; G93.1 Anoxic brain damage, not elsewhere classified; Z99.11 Dependence on respirator [ventilator] status; I48.91 Unspecified atrial fibrillation; D64.9 Anemia, unspecified; K21.9 Gastro-esophageal reflux disease without esophagitis; J44.9 Chronic obstructive pulmonary disease, unspecified; I95.9 Hypotension, unspecified; I50.9 Heart failure, unspecified; R57.8 Other shock; Z93.1 Gastrostomy status; I46.8 Cardiac arrest due to other underlying condition; Z87.891 Personal history of nicotine dependence; Z66 Do not resuscitate; Z79.899 Other long term (current) drug therapy; Z51.5 Encounter for palliative care; Z96.0 Presence of urogenital implants
CPT/HCPCS: 36415; 36600; 70450; 70551; 71045; 80048; 80053; 80069; 80202; 81001; 82803; 83605; 83690; 83735; 83880; 84295; 84484; 85025; 85610; 85730; 86850; 86900; 86901; 86923; 87040; 87077; 87081; 87086; 87186; 87205; 93005; 93306; 94002; 94003; 94640; 95816; 96374; 99291; A9270; J1643; J2060; J2270; J2543; J3010; J3370; J3490; J7030; J7070; J7120; P9016

== ENCOUNTER → 2025-03-12 17:44 | Inpatient (IN) | payer MEDICARE, MEDICAID, SELFPAY ==
[2024-02-24 13:14] VITALS: PULSE 77; RESP 22; O2SAT 98
[2024-02-24 13:40] VITALS: BP 104/67; PULSE 82; RESP 23; TEMP 36.2; O2SAT 98
--- NOTE | 2024-02-24 14:54 | EKG_ITS ---
[facility] Test Date: 2024-02-24 Pat Name: ZACKARY CHEUNG Department: Room: [facility] Gender: Female Geospatial Specialist: PIEDAD : 1955 Requested By: Tico Salazar Order Number: [id number] Reading MD: Tico Salazar Measurements Intervals [place] Rate: 83 P: 86 ND: 120 QRS: 74 QRSD: 105 T: 84 QT: 307 QTc: 361 Interpretive Statements SINUS RHYTHM POSSIBLE LEFT ATRIAL ENLARGEMENT NONSPECIFIC T-WAVE ABNORMALITY No previous ECG available for comparison /store/S0/[id number]
--- NOTE | 2024-02-24 15:17 | PC.SS ---
Admission Note: Resident admitted to subacute with vent and trach in place. Resident has GT in place she eats and takes medications by mouth. Resident is Druze muslim and will accept spiritual care visits from ordnance artificer helper. Resident is FULL CODE with FULL TREATMENT. Resident does not have an advanced directive in place and is not conserved. This SSD informed her she can establish an advanced directive here in facility if she chooses. Resident has agreed to an advanced directive. This SSD will call ombudsman and schedule for advanced directive. Resident has vision impairment she wears glasses and will have all personals at reach. Resident is able make decision for self and is able to sign consents for self, in the even she is not able to make decisions she has her daughter in law Aissatou Blakely and son Francisco Javier Blakely as her next of kin. He wears full mouth dentures and will have them cleaned by staff and will have them in place during meals. Resident hearing is adequate with no assisting hearing device. Resident has clear speech able to make needs known. She is able to assist with some care, but mostly depends on staff for care. Resident does have history of trauma related to childhood, denies having depression does become anxious at times related to her breathing. Resident said she feels lonely at times with out her family. DC plan is for resident to remain in current care until she is able to transfer to [facility] to be closer to family. Plan is for resident to DC to [facility] once they have a ventilator available for her. Resident has been accepted. This SSD will follow up and will keep resident and RP updated.
[2024-02-24 15:31] LABS: Basophils % (Auto) 0 % (0-2.5); Eosinophils # (Auto) 0.3 Thou/mm3 (0.0-0.5); Eosinophils % (Auto) 3 % (0-10); Hematocrit 26.1 % (36.0-46.0); Immature Granulocytes % (Auto) 1 % (0-0); Immature Granulocytes Auto 0.08 Thou/mm3 (0.00-0.00); Lymphocytes # (Auto) 1.1 Thou/mm3 (1.0-4.8); Lymphocytes % (Auto) 12 % (10-50); Mean Corpuscular HGB Conc 30.7 g/dl (31.0-37.0); Mean Corpuscular Hemoglobin 31.3 pg (25.0-35.0); Mean Corpuscular Volume 102 fL (80-100); Monocytes # (Auto) 0.7 Thou/mm3 (0.0-0.8); Monocytes % (Auto) 7 % (0-12); Neutrophils # (Auto) 7.2 Thou/mm3 (1.8-7.7); Neutrophils % (Auto) 77 % (37-80); Nucleated Red Blood Cell % 0 /100 WBC (0); Platelet Count 283 Thou/mm3 (140-440); RDW Standard Deviation 75.2 fL (36.4-46.3); Red Blood Count 2.56 Miln/mm3 (4.00-5.20); White Blood Count 9.4 Thou/mm3 (3.6-11.0)
[2024-02-24 16:01] LABS: Alanine Aminotransferase 12 U/L (10-49); Albumin, Serum 3.9 gm/dL (3.4-4.8); Albumin/Globulin Ratio 1.3 (1.2-2.2); Alkaline Phosphatase 76 U/L (46-116); Anion Gap 6 (7-16); Aspartate Amino Transferase 17 U/L (0-34); BUN/Creatinine Ratio 24 Ratio (12-20); Bilirubin,Total 0.2 mg/dL (0.3-1.2); Blood Urea Nitrogen 12 mg/dL (9-23); Calcium (Corrected) 9.1 mg/dL (8.5-10.1); Carbon Dioxide 34.5 mMol/L (20.0-31.0); Chloride 96 mMol/L (98-107); Creatinine (Component) 0.5 mg/dL (0.6-1.3); Globulin 3.1 gm/dL (2.3-3.5); Glucose 102 mg/dL (74-106); Osmolality,Calculated 271 (275-295); Potassium 4.6 mMol/L (3.4-5.1); Sodium 136 mMol/L (136-145); eGFR > 60 See Note
[2024-02-24] MEDS: ACET PO (16:40)
[2024-02-24] MEDS: HYDRO PO (16:40)
--- NOTE | 2024-02-24 16:44 | PC.NURSE ---
Resident arrived to subacute via bed accompanied by Telemetry nurse and respiratory crew. Resident is alert and oriented x3. Able to make needs known. Stated feeling tired upon arrival. Resident was placed on big vent with ordered settings. Head to toe assessment completed. multiple bruising to bilateral arms noted (From IV insertion). scab like to Rt wrist, SGT 4 to sacrum area. Irritated GT site. treatment in place for GT and Sacrum. MD notified. Family member notified (Aissatou) Consented to continue Xanax. Will carry out all new orders. Resident resting in bed quietly. Will continue to monitor.
[2024-02-24 17:35] LABS: Base Excess 11 (-3-3); HCO3 39 mEq/L (20-26); Inspired Oxygen, FIO2 35 %; O2 Saturation 96 % (91-98); PCO2 75 mmHg (32.0-48.0); PO2 107 mmHg (83-108); pH, Arterial 7.32 (7.35-7.45)
[2024-02-24 17:38] LABS: Allen Test Performed/OK; Puncture Site Right Radial
[2024-02-24] MEDS: MIDODRINE 10 MG TABLET GT (17:46)
[2024-02-24 18:00] VITALS: BP 104/70; PULSE 72; RESP 23; TEMP 36.3; O2SAT 98
--- NOTE | 2024-02-24 18:00 | ESHP_ITS ---
Physical exam Physical Exam Vital signs: Temp Pulse Resp BP Pulse Ox O2 Del Method FiO2 98.5 F 77 21 H 134/68 H 98 Mechanical Ventilation 35 02/25/24 18:00 02/25/24 18:00 02/25/24 18:00 02/25/24 18:00 02/25/24 18:00 02/25/24 18:00 02/25/24 15:00 Narrative: Patient awake alert cooperative on ventilatory support settings reviewed. In no distress. Communicates well. Vital signs stable. Constitutional Constitutional: no acute distress, thin and cooperative HEENT Exam Head: Present normocephalic Eye: Present PERRL ENT: Present mucous membranes moist, nares patent and external ear normal Neck Exam Neck: Present supple Chest/Breast/Axilla Exam Comments: Within normal limits Respiratory Exam Respiratory: Present chest non-tender, decreased breath sounds, prolonged expiratory phase, distant breath sounds and patient mechanically ventilated Cardiovascular Exam Cardiovascular: Present irregularly irregular Abdominal Exam Abdominal: Present soft and normoactive bowel sounds Rectal Exam Comments: Deferred Exam Comments: WNL Extremities Exam Extremities: Present full ROM Back/Spine/Pelvis Exam Back/Spine: Present paraspinal tenderness Pelvis: Present coccyx tenderness Skin Exam Comments: WNL Neurological Exam Neurological: Present alert, oriented X3, CN II-XII intact, normal reflexes and moving all extremities Psychiatric Exam Psychiatric: Present anxious Rehabilitation potential Diagnosis (1) Gastrostomy tube in place: Status: Chronic (2) Chronic respiratory failure with hypoxia and hypercapnia: Status: Chronic Assessment & Plan: Etiology is combined effect of CHF/A-fib and end-stage COPD (3) Ventilator dependent: Status: Chronic Assessment & Plan: Ventilator settings stable, patient tolerating it well. Weaning unsuccessful because of patient's generalized weakness (4) Congestive heart failure: Status: Chronic Assessment & Plan: Fairly stable on medication. No significant pedal edema (5) Chronic obstructive pulmonary disease, unspecified: Status: Chronic Assessment & Plan: Related to long history of smoking more than 50 pack years. (6) Atrial fibrillation: Status: Chronic Assessment & Plan: Fairly stable on amiodarone (7) Tracheostomy in place: Status: Chronic Assessment & Plan: Site clean and healthy. Patient tolerating it well (8) Chronic anemia: Status: Chronic Assessment & Plan: On supplements Assessment & Plan Assessment: Patient continued on antibiotics after being received back from acute care where she was treated for UTI and pneumonia. Responded well and now stable. Tolerating ventilatory support. Not amenable because of generalized weakness. Tolerating feeding. Prognosis is very guarded. Patient aware. Family kept aware as well. Plan: Current treatment as well as ventilator settings reviewed and continued Prognosis Prognosis: Very guarded Goals Improve nutrition, Ensure comfort. HPI History of Present Illness HPI: Patient returned from acute care after treatment for pneumonia and UTI. Responded well to treatment. Will be admitted to [facility] with chronic respiratory failure/hypoxia/hypercarbia with tracheostomy; feeding PEG tube; chronic obstructive airway disease end stage; congestive heart failure with A-fib; history of hepatitis C; chronic anemia; in baseline stable condition while on ventilator support.
[2024-02-24 18:32] VITALS: PULSE 76; RESP 23; O2SAT 100
[2024-02-24] MEDS: IPRATROPIUM/ALBUTEROL 3 ML AMPUL.NEB INH ×2 (18:32→22:29)
[2024-02-24] MEDS: BUDESONIDE 0.5 MG/2 ML AMPUL.NEB INH (18:32)
[2024-02-24] MEDS: ALPRAZolam 0.5 MG TABLET PO (20:24)
[2024-02-24] MEDS: FAMOTIDINE 20 MG TABLET PO (20:25)
[2024-02-24] MEDS: ASCORBIC ACID 500 MG TABLET PO (20:25)
[2024-02-24] MEDS: SENNOSIDES 8.6 MG TABLET PO (20:25)
[2024-02-24] MEDS: ACETAMINOPHEN 325 MG TABLET 650 MG PO (22:12)
[2024-02-24 22:29] VITALS: PULSE 74; RESP 23; O2SAT 100
[2024-02-25] VITALS (13 sets, daily range): BP systolic 95–134; BP diastolic 53–68; PULSE 65–83; RESP 16–23; TEMP 36.4–37.1; O2SAT 97–100
[2024-02-25] MEDS: guaiFENesin Liq 100 MG/5 ML LIQUID PO ×4 (00:05→22:05)
[2024-02-25] MEDS: MIDODRINE 10 MG TABLET GT ×3 (00:30→11:49)
[2024-02-25] MEDS: ACET PO ×2 (01:00→11:45)
[2024-02-25] MEDS: HYDRO PO ×2 (01:00→11:45)
[2024-02-25] MEDS: IPRATROPIUM/ALBUTEROL 3 ML AMPUL.NEB INH ×6 (02:30→22:30)
[2024-02-25] MEDS: BUDESONIDE 0.5 MG/2 ML AMPUL.NEB INH ×2 (06:50→18:25)
[2024-02-25] MEDS: AMIODARONE 200 MG TABLET PO (09:13)
[2024-02-25] MEDS: ASCORBIC ACID 500 MG TABLET PO ×2 (09:14→20:12)
[2024-02-25] MEDS: ALPRAZolam 0.5 MG TABLET PO ×2 (09:15→20:12)
[2024-02-25] MEDS: FAMOTIDINE 20 MG TABLET PO ×2 (09:15→20:12)
[2024-02-25] MEDS: MULTIVITAMIN 1 TAB TABLET PO (09:15)
[2024-02-25] MEDS: SENNOSIDES 8.6 MG TABLET PO ×2 (09:16→20:13)
[2024-02-26] VITALS (12 sets, daily range): BP systolic 92–113; BP diastolic 47–65; PULSE 60–78; RESP 14–23; TEMP 36.1–36.5; O2SAT 97–100
[2024-02-26] MEDS: ACET PO ×2 (01:32→13:41)
[2024-02-26] MEDS: HYDRO PO ×2 (01:32→13:41)
[2024-02-26] MEDS: IPRATROPIUM/ALBUTEROL 3 ML AMPUL.NEB INH ×5 (02:00→22:45)
[2024-02-26] MEDS: MIDODRINE 10 MG TABLET GT ×3 (05:14→11:53)
[2024-02-26] MEDS: guaiFENesin Liq 100 MG/5 ML LIQUID PO (06:06)
[2024-02-26] MEDS: BUDESONIDE 0.5 MG/2 ML AMPUL.NEB INH ×2 (06:50→16:54)
[2024-02-26] MEDS: ALPRAZolam 0.5 MG TABLET PO ×2 (08:41→20:12)
[2024-02-26] MEDS: ASCORBIC ACID 500 MG TABLET PO ×2 (08:47→20:11)
[2024-02-26] MEDS: SENNOSIDES 8.6 MG TABLET PO ×2 (08:48→20:13)
[2024-02-26] MEDS: FAMOTIDINE 20 MG TABLET PO ×2 (08:48→20:12)
[2024-02-26] MEDS: MULTIVITAMIN 1 TAB TABLET PO (08:48)
--- NOTE | 2024-02-26 11:00 | CHAP ---
Patient was sleeping peacefully. Prayed for by the Spiritual Care Volunteer (silently in doorway). (Volunteer was in the hospital from c10:00-11:00).
[2024-02-26] MEDS: ONDANSETRON HCL 4 MG TABLET PO (17:07)
--- NOTE | 2024-02-26 22:48 | PD.SAPROG ---
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 (2) Chronic respiratory failure with hypoxia and hypercapnia: Status: Chronic (3) Ventilator dependent: Status: Chronic (4) Congestive heart failure: Status: Chronic (5) Chronic obstructive pulmonary disease, unspecified: Status: Chronic (6) Atrial fibrillation: Status: Chronic (7) Tracheostomy in place: Status: Chronic (8) Chronic anemia: Status: Chronic SUBJECTIVE Fever:: none GI:: none Shortness of Breath:: unchanged GI:: nausea Pain:: none OBJECTIVE Most recent vital signs: Last Vital Signs Temp 97.7 F 02/26/24 17:42 Pulse 70 02/26/24 17:42 Resp 22 H 02/26/24 17:42 BP 113/59 L 02/26/24 17:42 Pulse Ox 99 02/26/24 17:42 O2 Del Method Mechanical Ventilation 02/26/24 05:53 FiO2 35 02/26/24 16:54 Neurological:: alert Speech:: nods head, mouths words and appropriate Answers questions:: yes Respiratory:: shallow breathing and rhonchi Cardiovascular: irregular Abdomen: soft Tracheostomy:: to ventilator Feeding per:: po ASSESSMENT & PLAN Assessment: Patient continued on antibiotics after being received back from acute care where she was treated for UTI and pneumonia. Responded well and now stable. Tolerating ventilatory support. Not amenable because of generalized weakness. Tolerating feeding. Prognosis is very guarded. Patient aware. Family kept aware as well. Plan: Current treatment as well as ventilator settings reviewed and continued
[2024-02-27] VITALS (12 sets, daily range): BP systolic 90–99; BP diastolic 54–64; PULSE 55–80; RESP 14–22; TEMP 36.1–36.3; O2SAT 97–100
[2024-02-27] MEDS: ACET PO (00:05)
[2024-02-27] MEDS: guaiFENesin Liq 100 MG/5 ML LIQUID PO ×2 (00:05→23:05)
[2024-02-27] MEDS: HYDRO PO (00:05)
[2024-02-27] MEDS: IPRATROPIUM/ALBUTEROL 3 ML AMPUL.NEB INH ×6 (03:00→22:15)
[2024-02-27] MEDS: BUDESONIDE 0.5 MG/2 ML AMPUL.NEB INH ×2 (06:00→18:05)
[2024-02-27] MEDS: MIDODRINE 10 MG TABLET GT ×3 (06:06→23:06)
[2024-02-27] MEDS: ALPRAZolam 0.5 MG TABLET PO ×2 (09:06→20:50)
[2024-02-27] MEDS: SENNOSIDES 8.6 MG TABLET PO ×2 (09:09→20:51)
[2024-02-27] MEDS: MULTIVITAMIN 1 TAB TABLET PO (09:09)
[2024-02-27] MEDS: FAMOTIDINE 20 MG TABLET PO ×2 (09:09→20:51)
--- NOTE | 2024-02-27 12:30 | CHAP ---
Patient was prayed for by the Spiritual Care Volunteer. (Volunteer was in the hospital from 10:00-12:30).
[2024-02-27] MEDS: ASCORBIC ACID 500 MG TABLET PO (20:51)
[2024-02-27] MEDS: MAGNESIUM HYDROXIDE 30 ML ORAL SUSP ML GT (23:05)
[2024-02-28] VITALS (11 sets, daily range): BP systolic 93–129; BP diastolic 48–62; PULSE 62–72; RESP 14–21; TEMP 36.3–36.9; O2SAT 96–100
[2024-02-28] MEDS: HYDRO PO ×2 (03:24→16:47)
[2024-02-28] MEDS: ACET PO ×2 (03:24→16:47)
[2024-02-28] MEDS: IPRATROPIUM/ALBUTEROL 3 ML AMPUL.NEB INH ×6 (03:42→22:08)
[2024-02-28] MEDS: MIDODRINE 10 MG TABLET GT ×2 (05:19→11:49)
[2024-02-28] MEDS: BUDESONIDE 0.5 MG/2 ML AMPUL.NEB INH ×2 (06:00→16:50)
[2024-02-28] MEDS: ALPRAZolam 0.5 MG TABLET PO ×2 (08:32→20:27)
[2024-02-28] MEDS: ASCORBIC ACID 500 MG TABLET PO ×2 (08:36→20:27)
[2024-02-28] MEDS: SENNOSIDES 8.6 MG TABLET PO ×2 (08:37→20:30)
[2024-02-28] MEDS: MULTIVITAMIN 1 TAB TABLET PO (08:37)
[2024-02-28] MEDS: FAMOTIDINE 20 MG TABLET PO ×2 (08:37→20:30)
[2024-02-28] MEDS: guaiFENesin Liq 100 MG/5 ML LIQUID PO ×2 (09:00→16:48)
[2024-02-28] MEDS: ACETAMINOPHEN 325 MG TABLET 650 MG PO ×2 (14:12→20:30)
[2024-02-28] MEDS: BISACODYL 10 MG SUPP.RECT PR (16:20)
--- NOTE | 2024-02-28 20:55 | PD.SAPROG ---
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 (2) Chronic respiratory failure with hypoxia and hypercapnia: Status: Chronic (3) Ventilator dependent: Status: Chronic (4) Congestive heart failure: Status: Chronic (5) Chronic obstructive pulmonary disease, unspecified: Status: Chronic (6) Atrial fibrillation: Status: Chronic (7) Tracheostomy in place: Status: Chronic (8) Chronic anemia: Status: Chronic SUBJECTIVE Fever:: none GI:: none Shortness of Breath:: unchanged GI:: nausea Pain:: none OBJECTIVE Most recent vital signs: Last Vital Signs Temp 97.6 F 02/28/24 17:47 Pulse 69 02/28/24 17:47 Resp 21 H 02/28/24 17:47 BP 129/51 L 02/28/24 17:47 Pulse Ox 100 02/28/24 17:47 O2 Del Method Mechanical Ventilation 02/28/24 17:47 FiO2 35 02/28/24 16:50 Neurological:: alert Speech:: nods head, mouths words and appropriate Answers questions:: yes Respiratory:: shallow breathing and rhonchi Cardiovascular: irregular Abdomen: soft Tracheostomy:: to ventilator Feeding per:: po ASSESSMENT & PLAN Assessment: Patient continued on antibiotics after being received back from acute care where she was treated for UTI and pneumonia. Responded well and now stable. Tolerating ventilatory support. Not weanable because of generalized weakness. Tolerating feeding. Prognosis is very guarded. Patient aware. Family kept aware as well. Plan: Current treatment as well as ventilator settings reviewed and continued
[2024-02-29] VITALS (13 sets, daily range): BP systolic 91–108; BP diastolic 50–59; PULSE 53–88; RESP 14–26; TEMP 36–36.7; O2SAT 97–100
[2024-02-29] MEDS: MIDODRINE 10 MG TABLET GT ×4 (00:14→17:58)
[2024-02-29] MEDS: guaiFENesin Liq 100 MG/5 ML LIQUID PO ×2 (01:05→09:05)
[2024-02-29] MEDS: ACET PO ×3 (01:05→20:00)
[2024-02-29] MEDS: HYDRO PO ×3 (01:05→20:00)
[2024-02-29] MEDS: IPRATROPIUM/ALBUTEROL 3 ML AMPUL.NEB INH ×6 (02:14→22:15)
[2024-02-29] MEDS: BUDESONIDE 0.5 MG/2 ML AMPUL.NEB INH ×2 (04:46→18:45)
[2024-02-29] MEDS: ALPRAZolam 0.5 MG TABLET PO ×2 (09:00→20:32)
[2024-02-29] MEDS: ASCORBIC ACID 500 MG TABLET PO ×2 (09:03→20:33)
[2024-02-29] MEDS: FAMOTIDINE 20 MG TABLET PO ×2 (09:04→20:33)
[2024-02-29] MEDS: ACETAMINOPHEN 325 MG TABLET 650 MG PO (09:04)
[2024-02-29] MEDS: SENNOSIDES 8.6 MG TABLET PO ×2 (09:04→20:33)
[2024-02-29] MEDS: MULTIVITAMIN 1 TAB TABLET PO (09:04)
[2024-03-01] VITALS (13 sets, daily range): BP systolic 95–118; BP diastolic 54–69; PULSE 64–84; RESP 14–27; TEMP 36.2–36.4; O2SAT 94–100
[2024-03-01] MEDS: ACETAMINOPHEN 325 MG TABLET 650 MG PO ×2 (00:05→14:15)
[2024-03-01] MEDS: guaiFENesin Liq 100 MG/5 ML LIQUID PO ×3 (00:05→17:45)
[2024-03-01] MEDS: MIDODRINE 10 MG TABLET GT ×4 (00:08→18:00)
[2024-03-01] MEDS: IPRATROPIUM/ALBUTEROL 3 ML AMPUL.NEB INH ×6 (02:00→22:00)
[2024-03-01] MEDS: BUDESONIDE 0.5 MG/2 ML AMPUL.NEB INH ×2 (04:30→21:00)
[2024-03-01] MEDS: HYDRO PO ×2 (07:30→20:11)
[2024-03-01] MEDS: ACET PO ×2 (07:30→20:11)
[2024-03-01] MEDS: ALPRAZolam 0.5 MG TABLET PO ×2 (09:00→20:14)
[2024-03-01] MEDS: AMIODARONE 200 MG TABLET PO (09:06)
[2024-03-01] MEDS: ASCORBIC ACID 500 MG TABLET PO ×2 (09:08→20:13)
[2024-03-01] MEDS: FAMOTIDINE 20 MG TABLET PO ×2 (09:08→20:13)
[2024-03-01] MEDS: MULTIVITAMIN 1 TAB TABLET PO (09:09)
[2024-03-01] MEDS: SENNOSIDES 8.6 MG TABLET PO ×2 (09:09→20:14)
[2024-03-02] VITALS (12 sets, daily range): BP systolic 97–108; BP diastolic 53–65; PULSE 62–75; RESP 15–24; TEMP 36.2–36.6; O2SAT 95–99
[2024-03-02] MEDS: MIDODRINE 10 MG TABLET GT ×5 (00:03→23:15)
[2024-03-02] MEDS: IPRATROPIUM/ALBUTEROL 3 ML AMPUL.NEB INH ×6 (02:03→22:10)
[2024-03-02] MEDS: ACETAMINOPHEN 325 MG TABLET 650 MG PO ×2 (04:56→16:54)
[2024-03-02] MEDS: guaiFENesin Liq 100 MG/5 ML LIQUID PO (04:56)
[2024-03-02] MEDS: ACET PO ×2 (08:15→20:12)
[2024-03-02] MEDS: HYDRO PO ×2 (08:15→20:12)
[2024-03-02] MEDS: ALPRAZolam 0.5 MG TABLET PO ×2 (08:36→20:09)
[2024-03-02] MEDS: FAMOTIDINE 20 MG TABLET PO ×2 (08:37→20:09)
[2024-03-02] MEDS: MULTIVITAMIN 1 TAB TABLET PO (08:37)
[2024-03-02] MEDS: ASCORBIC ACID 500 MG TABLET PO ×2 (08:37→20:09)
[2024-03-02] MEDS: SENNOSIDES 8.6 MG TABLET PO ×2 (08:37→20:09)
--- NOTE | 2024-03-02 10:32 | CHAP ---
Patient was visited by a Spiritual Care Volunteer on 03/01/2024 between [id number] and [id number] and received encouragement and prayer.
[2024-03-02] MEDS: BUDESONIDE 0.5 MG/2 ML AMPUL.NEB INH ×2 (18:50)
[2024-03-03] VITALS (13 sets, daily range): BP systolic 86–107; BP diastolic 43–60; PULSE 58–75; RESP 15–26; TEMP 36.1–36.7; O2SAT 97–100
[2024-03-03] MEDS: ACETAMINOPHEN 325 MG TABLET 650 MG PO ×3 (00:04→22:30)
[2024-03-03] MEDS: IPRATROPIUM/ALBUTEROL 3 ML AMPUL.NEB INH ×6 (03:10→22:00)
[2024-03-03] MEDS: MIDODRINE 10 MG TABLET GT ×3 (05:41→17:20)
[2024-03-03] MEDS: BUDESONIDE 0.5 MG/2 ML AMPUL.NEB INH ×2 (07:06→20:31)
[2024-03-03] MEDS: AMIODARONE 200 MG TABLET PO (08:51)
[2024-03-03] MEDS: ALPRAZolam 0.5 MG TABLET PO ×2 (08:51→20:34)
[2024-03-03] MEDS: SENNOSIDES 8.6 MG TABLET PO ×2 (08:52→20:34)
[2024-03-03] MEDS: ASCORBIC ACID 500 MG TABLET PO ×2 (08:52→20:34)
[2024-03-03] MEDS: FAMOTIDINE 20 MG TABLET PO ×2 (08:52→20:34)
[2024-03-03] MEDS: MULTIVITAMIN 1 TAB TABLET PO (08:52)
[2024-03-03] MEDS: HYDRO PO ×2 (08:54→20:05)
[2024-03-03] MEDS: ACET PO ×2 (08:54→20:05)
--- NOTE | 2024-03-03 09:36 | CHAP ---
Patient was visited by a Spiritual Care Volunteer on 03/02/2024 between 1000 and 1300 and received comfort and prayer.
[2024-03-03] MEDS: guaiFENesin Liq 100 MG/5 ML LIQUID PO ×2 (16:15→22:30)
--- NOTE | 2024-03-03 16:42 | CHAP ---
11:00 AM Visited by spiritual care volunteer Provided prayer for Patient.
[2024-03-04] VITALS (14 sets, daily range): BP systolic 90–125; BP diastolic 48–64; PULSE 58–86; RESP 15–23; TEMP 36.1–36.9; O2SAT 97–100
[2024-03-04] MEDS: MIDODRINE 10 MG TABLET GT ×4 (00:24→18:46)
[2024-03-04] MEDS: IPRATROPIUM/ALBUTEROL 3 ML AMPUL.NEB INH ×6 (02:17→22:56)
[2024-03-04] MEDS: BUDESONIDE 0.5 MG/2 ML AMPUL.NEB INH ×2 (06:44→19:55)
[2024-03-04] MEDS: guaiFENesin Liq 100 MG/5 ML LIQUID PO ×2 (07:30→22:34)
[2024-03-04] MEDS: ALPRAZolam 0.5 MG TABLET PO ×2 (09:31→20:34)
[2024-03-04] MEDS: ASCORBIC ACID 500 MG TABLET PO ×2 (09:32→20:35)
[2024-03-04] MEDS: MULTIVITAMIN 1 TAB TABLET PO (09:33)
[2024-03-04] MEDS: FAMOTIDINE 20 MG TABLET PO ×2 (09:33→20:35)
[2024-03-04] MEDS: SENNOSIDES 8.6 MG TABLET PO ×2 (09:34→20:35)
--- NOTE | 2024-03-04 11:35 | CHAP ---
Patient was visited by the Spiritual Care Volunteer who prayed for them. (Volunteer was in the hospital from 09:30-11:35)
[2024-03-04] MEDS: ACET PO ×2 (11:50→20:10)
[2024-03-04] MEDS: HYDRO PO ×2 (11:50→20:10)
--- NOTE | 2024-03-04 12:11 | PC.NURSE ---
Asp Web Developer Pharmacist MRR
--- NOTE | 2024-03-04 12:43 | PC.SS ---
This SSD informed by Lic. Nurse resident was attempting to adjust her ventilator settings without medical approval. It was said this is not the first time resident does this, as this makes the third time. Today while resident was manipulating her vent she managed to freeze it, she found and immediate interventions began from Lic. nurse. This SSD went in at bedside to speak with resident about this incident, resident did not deny it happening. This SSD informed resident this was not safe and since this was the third incident the better outcome would be her moving to another room directly across from nurses station. She asked not to be moved and promised this would not happen again. Resident was educated on safety by Lic. nurse. This SSD informed charge nurse and EYAD.
--- NOTE | 2024-03-04 13:05 | PD.SAPROG ---
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 (2) Chronic respiratory failure with hypoxia and hypercapnia: Status: Chronic (3) Ventilator dependent: Status: Chronic (4) Congestive heart failure: Status: Chronic (5) Chronic obstructive pulmonary disease, unspecified: Status: Chronic (6) Atrial fibrillation: Status: Chronic (7) Tracheostomy in place: Status: Chronic (8) Chronic anemia: Status: Chronic SUBJECTIVE Fever:: none GI:: none Shortness of Breath:: unchanged GI:: nausea Pain:: none OBJECTIVE Most recent vital signs: Last Vital Signs Temp 98.2 F 03/08/24 17:57 Pulse 75 03/08/24 17:57 Resp 20 03/08/24 17:57 BP 111/60 03/08/24 17:57 Pulse Ox 98 03/08/24 14:40 O2 Del Method Mechanical Ventilation 03/08/24 11:55 FiO2 35 03/08/24 14:40 Neurological:: alert Speech:: nods head, mouths words and appropriate Answers questions:: yes Respiratory:: shallow breathing and rhonchi Cardiovascular: irregular Abdomen: soft Tracheostomy:: to ventilator Feeding per:: po ASSESSMENT & PLAN Assessment: Patient continued on antibiotics after being received back from acute care where she was treated for UTI and pneumonia. Responded well and now stable. Tolerating ventilatory support. Not weanable because of generalized weakness. Tolerating feeding. Prognosis is very guarded. Patient aware. Family kept aware as well. Plan: Current treatment as well as ventilator settings reviewed and continued
--- NOTE | 2024-03-04 13:12 | PC.NURSE ---
Late entry for early event at 1130 resident was found laying in bed with altered level of conciousness ventilator was frozen according to respiratory therapist Lizzy. continuity writer arrived to resident's room. Lizzy was bagging resident. When continuity writer attempted to stimuli resident she was responsive. Paula valadez able to reset ventilator, resident was connected back to vent. According to Nurse resident was manipulating the ventilator prior vent failing to ventilated resident. MD notified. When resident was stable she received education regarding the importance of not manipulated ventilator settings. Resident verbalized understanding. Will monitor resident closely.
--- NOTE | 2024-03-04 13:50 | PC.RT ---
At around 1130 RT was called to patients room. Patient was found altered and ventilator was frozen. Nurse at bedside. According to nurse patient manipulated the vent unsure of what patient pushed that made the vent freeze. RT disconnected patient from ventilator and began bagging patient. RT paula was able to reset the vent. Patient was connected back to vent sating well. RT Paula Gave education to patient on the importance of not touching the vent. Vent screen has been locked for now.
--- NOTE | 2024-03-04 15:50 | PC.NURSE ---
I was called to the resident room,patient was not breathing and her face appeared to be burns, and she was not breathing. The ventilator was not alarming. Respiratory was called and we started to bag the resident until we got a pulse of 99% . Incident reported to charge nurse.
[2024-03-04] MEDS: ACETAMINOPHEN 325 MG TABLET 650 MG PO (17:00)
[2024-03-05] VITALS (11 sets, daily range): BP systolic 101–119; BP diastolic 59–67; PULSE 59–79; RESP 20–32; TEMP 36.2–36.5; O2SAT 93–100
[2024-03-05] MEDS: ACETAMINOPHEN 325 MG TABLET 650 MG PO (00:05)
--- NOTE | 2024-03-05 00:28 | PC.RT ---
PT refuse air in cuff, PT was warned of risks and wrote on her notepad It is my right to refuse. I asked if she was then ok with the risks and assumes responsibillity at which time she responded yes.
[2024-03-05] MEDS: MIDODRINE 10 MG TABLET GT ×4 (01:00→18:29)
[2024-03-05] MEDS: IPRATROPIUM/ALBUTEROL 3 ML AMPUL.NEB INH ×6 (02:05→22:20)
[2024-03-05] MEDS: BISACODYL 10 MG SUPP.RECT PR (04:00)
[2024-03-05] MEDS: BUDESONIDE 0.5 MG/2 ML AMPUL.NEB INH (06:33)
[2024-03-05] MEDS: ALPRAZolam 0.5 MG TABLET PO ×2 (09:17→20:27)
[2024-03-05] MEDS: AMIODARONE 200 MG TABLET PO (09:18)
[2024-03-05] MEDS: SENNOSIDES 8.6 MG TABLET PO ×2 (09:19→20:28)
[2024-03-05] MEDS: FAMOTIDINE 20 MG TABLET PO ×2 (09:19→20:28)
[2024-03-05] MEDS: ASCORBIC ACID 500 MG TABLET PO ×2 (09:19→20:28)
[2024-03-05] MEDS: MULTIVITAMIN 1 TAB TABLET PO (09:19)
--- NOTE | 2024-03-05 09:45 | CHAP ---
Patient expressed gratitude for the visit and prayer.
[2024-03-05] MEDS: ACET PO ×2 (15:15→23:38)
[2024-03-05] MEDS: HYDRO PO ×2 (15:15→23:38)
[2024-03-05] MEDS: guaiFENesin Liq 100 MG/5 ML LIQUID PO (21:47)
[2024-03-06] VITALS (13 sets, daily range): BP systolic 102–152; BP diastolic 60–77; PULSE 63–78; RESP 16–28; TEMP 36.2–36.4; O2SAT 97–100
[2024-03-06] MEDS: IPRATROPIUM/ALBUTEROL 3 ML AMPUL.NEB INH ×6 (02:00→22:30)
[2024-03-06] MEDS: ACETAMINOPHEN 325 MG TABLET 650 MG PO ×2 (05:10→23:00)
[2024-03-06] MEDS: guaiFENesin Liq 100 MG/5 ML LIQUID PO ×3 (05:26→20:10)
[2024-03-06] MEDS: MIDODRINE 10 MG TABLET GT ×4 (06:01→23:06)
[2024-03-06] MEDS: BUDESONIDE 0.5 MG/2 ML AMPUL.NEB INH ×2 (06:16→18:20)
[2024-03-06] MEDS: ACET PO ×2 (07:35→17:40)
[2024-03-06] MEDS: HYDRO PO ×2 (07:35→17:40)
[2024-03-06] MEDS: ALPRAZolam 0.5 MG TABLET PO ×2 (09:10→20:11)
[2024-03-06] MEDS: AMIODARONE 200 MG TABLET PO (09:11)
[2024-03-06] MEDS: FAMOTIDINE 20 MG TABLET PO ×2 (09:12→20:18)
[2024-03-06] MEDS: MULTIVITAMIN 1 TAB TABLET PO (09:12)
[2024-03-06] MEDS: SENNOSIDES 8.6 MG TABLET PO ×2 (09:12→20:18)
[2024-03-06] MEDS: ASCORBIC ACID 500 MG TABLET PO ×2 (09:12→20:17)
--- NOTE | 2024-03-06 14:41 | PC.RT ---
Patient aware that air needs to be added to her cuff. Per patient she does not want air in cuff and she can refuse because she has the right to. Patient made aware that no air will be added but RT will notify Dr Salazar. per patient okay to add air and to not notify . Air was added to cuff.
[2024-03-07] VITALS (12 sets, daily range): BP systolic 104–120; BP diastolic 55–67; PULSE 65–79; RESP 14–22; TEMP 36.3–37.1; O2SAT 98–100
[2024-03-07] MEDS: IPRATROPIUM/ALBUTEROL 3 ML AMPUL.NEB INH ×6 (02:00→22:40)
[2024-03-07] MEDS: HYDRO PO ×2 (05:03→14:23)
[2024-03-07] MEDS: MIDODRINE 10 MG TABLET GT ×3 (05:03→17:20)
[2024-03-07] MEDS: ACET PO ×2 (05:03→14:23)
[2024-03-07] MEDS: BUDESONIDE 0.5 MG/2 ML AMPUL.NEB INH (06:15)
[2024-03-07] MEDS: MULTIVITAMIN 1 TAB TABLET PO (09:17)
[2024-03-07] MEDS: ASCORBIC ACID 500 MG TABLET PO ×2 (09:17→20:36)
[2024-03-07] MEDS: ALPRAZolam 0.5 MG TABLET PO ×2 (09:17→20:36)
[2024-03-07] MEDS: FAMOTIDINE 20 MG TABLET PO ×2 (09:17→20:36)
[2024-03-07] MEDS: SENNOSIDES 8.6 MG TABLET PO ×2 (09:18→20:36)
[2024-03-07] MEDS: AMIODARONE 200 MG TABLET PO (09:21)
[2024-03-07] MEDS: ACETAMINOPHEN 325 MG TABLET 650 MG PO ×2 (11:00→20:30)
[2024-03-07] MEDS: guaiFENesin Liq 100 MG/5 ML LIQUID PO ×2 (14:23→20:30)
[2024-03-07] MEDS: MAGNESIUM HYDROXIDE 30 ML ORAL SUSP ML GT (20:37)
[2024-03-08] VITALS (13 sets, daily range): BP systolic 99–122; BP diastolic 59–70; PULSE 57–84; RESP 14–23; TEMP 36.2–36.8; O2SAT 97–100
[2024-03-08] MEDS: MIDODRINE 10 MG TABLET GT ×4 (00:24→17:34)
[2024-03-08] MEDS: IPRATROPIUM/ALBUTEROL 3 ML AMPUL.NEB INH ×6 (03:39→22:40)
[2024-03-08] MEDS: guaiFENesin Liq 100 MG/5 ML LIQUID PO ×3 (05:00→16:17)
[2024-03-08] MEDS: ALPRAZolam 0.5 MG TABLET PO ×2 (09:00→20:07)
[2024-03-08] MEDS: ASCORBIC ACID 500 MG TABLET PO ×2 (09:01→20:08)
[2024-03-08] MEDS: AMIODARONE 200 MG TABLET PO (09:01)
[2024-03-08] MEDS: FAMOTIDINE 20 MG TABLET PO ×2 (09:01→20:08)
[2024-03-08] MEDS: MULTIVITAMIN 1 TAB TABLET PO (09:02)
[2024-03-08] MEDS: SENNOSIDES 8.6 MG TABLET PO ×2 (09:02→20:08)
--- NOTE | 2024-03-08 14:51 | PC.NURSE ---
Bed bath and trach care was provided to resident with no issues to note. Linen was changed and wound care was provided. Bed was placed in lowest setting with call light in reach.
[2024-03-08] MEDS: ACET PO ×2 (17:03)
[2024-03-08] MEDS: HYDRO PO ×2 (17:03)
[2024-03-08] MEDS: BUDESONIDE 0.5 MG/2 ML AMPUL.NEB INH (22:40)
[2024-03-08] MEDS: MAGNESIUM HYDROXIDE 30 ML ORAL SUSP ML GT (23:20)
[2024-03-09] VITALS (14 sets, daily range): BP systolic 95–147; BP diastolic 54–88; PULSE 21–84; RESP 14–68; TEMP 36.1–36.8; O2SAT 97–100
[2024-03-09] MEDS: ACETAMINOPHEN 325 MG TABLET 650 MG PO ×2 (00:51→13:40)
[2024-03-09] MEDS: MIDODRINE 10 MG TABLET GT ×4 (02:08→23:11)
[2024-03-09] MEDS: guaiFENesin Liq 100 MG/5 ML LIQUID PO ×3 (04:20→20:51)
[2024-03-09] MEDS: IPRATROPIUM/ALBUTEROL 3 ML AMPUL.NEB INH ×5 (07:05→22:44)
[2024-03-09] MEDS: BUDESONIDE 0.5 MG/2 ML AMPUL.NEB INH ×2 (07:05→19:10)
[2024-03-09] MEDS: HYDRO PO ×2 (08:25→17:13)
[2024-03-09] MEDS: ACET PO ×2 (08:25→17:13)
--- NOTE | 2024-03-09 08:42 | CHAP ---
Patient was visited by a Spiritual Care Volunteer on 03/08/2024 and received comfort, encouragement and prayer.
[2024-03-09] MEDS: ALPRAZolam 0.5 MG TABLET PO ×2 (09:00→20:50)
[2024-03-09] MEDS: SENNOSIDES 8.6 MG TABLET PO ×2 (09:01→20:51)
[2024-03-09] MEDS: AMIODARONE 200 MG TABLET PO (09:01)
[2024-03-09] MEDS: FAMOTIDINE 20 MG TABLET PO ×2 (09:01→20:51)
[2024-03-09] MEDS: ASCORBIC ACID 500 MG TABLET PO ×2 (09:01→20:51)
[2024-03-09] MEDS: MULTIVITAMIN 1 TAB TABLET PO (09:01)
--- NOTE | 2024-03-09 15:34 | PC.SS ---
This SSD called juanita and schedule appointment for Advance Directive, scheduled for Friday 10 @ 10am at bedside. This SSD has arranged for 2 witnesses not employed or related to resident. Resident requested this service, and informed of appointment.
--- NOTE | 2024-03-09 15:37 | PC.SS ---
Resident had IDT meeting at bedside, she spoke with MD about concerns she had regarding her respiratory. All concerns, questions and request have been addressed and resolved to resident being pleased. Charge nurse present during meeting with MD. See physicians orders, RT notes and RN for further information regarding respiratory.
--- NOTE | 2024-03-09 15:59 | PC.RT ---
Per MD Salazar Mrs. Blakely cuff pressure can be at the minimum MOV level to allow talking without alarming the vent.
[2024-03-09] MEDS: PHENAZOPYRIDINE 100 MG TABLET PO (17:11)
--- NOTE | 2024-03-09 19:02 | PC.NURSE ---
Resident wants her tach to be deflated in a way that she could talk , seen by Dr Salazar this afternoon and explained to her the risk of it and resident stated she will take the consequences. Resident to have what settings she's on right now per MD and he talked to RT about it
[2024-03-10] VITALS (12 sets, daily range): BP systolic 92–124; BP diastolic 58–71; PULSE 66–85; RESP 14–21; TEMP 36.1–36.4; O2SAT 22–100
[2024-03-10] MEDS: IPRATROPIUM/ALBUTEROL 3 ML AMPUL.NEB INH ×6 (03:01→22:43)
[2024-03-10] MEDS: MIDODRINE 10 MG TABLET GT ×2 (05:36→17:15)
[2024-03-10] MEDS: ACET PO ×2 (05:36→16:23)
[2024-03-10] MEDS: HYDRO PO ×2 (05:36→16:23)
[2024-03-10] MEDS: PHENAZOPYRIDINE 100 MG TABLET PO ×2 (05:36→18:01)
[2024-03-10] MEDS: BUDESONIDE 0.5 MG/2 ML AMPUL.NEB INH ×2 (06:50→18:17)
[2024-03-10] MEDS: guaiFENesin Liq 100 MG/5 ML LIQUID PO ×2 (07:30→20:53)
[2024-03-10] MEDS: AMIODARONE 200 MG TABLET PO (08:43)
[2024-03-10] MEDS: ALPRAZolam 0.5 MG TABLET PO ×2 (08:43→20:52)
[2024-03-10] MEDS: MULTIVITAMIN 1 TAB TABLET PO (08:44)
[2024-03-10] MEDS: SENNOSIDES 8.6 MG TABLET PO ×2 (08:44→20:53)
[2024-03-10] MEDS: FAMOTIDINE 20 MG TABLET PO ×2 (08:44→20:52)
[2024-03-10] MEDS: ASCORBIC ACID 500 MG TABLET PO ×2 (08:44→20:52)
--- NOTE | 2024-03-10 14:04 | PC.SS ---
Advance Directive completed with ombudsman and 2 volunteer witnesses present. Resident was able to participate with no questions or concerns. Copy of Advance Directive placed in her medical chart, a copy given to her and one mailed to her proxy. Resident family made aware, no questions or concerns.
--- NOTE | 2024-03-10 15:44 | PC.PT ---
PT eval only. Patient referred to RNA program.
--- NOTE | 2024-03-10 16:19 | CHAP ---
11 AM Visited by spiritual care volunteer Provided prayer for Patient.
[2024-03-11] VITALS (13 sets, daily range): BP systolic 97–166; BP diastolic 56–77; PULSE 63–80; RESP 14–24; TEMP 35.9–36.4; O2SAT 94–100
[2024-03-11] MEDS: MIDODRINE 10 MG TABLET GT ×4 (00:31→17:29)
[2024-03-11] MEDS: ACET PO ×3 (01:25→17:31)
[2024-03-11] MEDS: HYDRO PO ×3 (01:25→17:31)
[2024-03-11] MEDS: IPRATROPIUM/ALBUTEROL 3 ML AMPUL.NEB INH ×6 (03:21→23:15)
[2024-03-11] MEDS: PHENAZOPYRIDINE 100 MG TABLET PO ×2 (05:34→17:29)
[2024-03-11] MEDS: BUDESONIDE 0.5 MG/2 ML AMPUL.NEB INH ×2 (06:50→18:14)
[2024-03-11] MEDS: FAMOTIDINE 20 MG TABLET PO ×2 (08:00→20:52)
[2024-03-11] MEDS: AMIODARONE 200 MG TABLET PO (08:00)
[2024-03-11] MEDS: MULTIVITAMIN 1 TAB TABLET PO (08:00)
[2024-03-11] MEDS: ALPRAZolam 0.5 MG TABLET PO ×2 (08:00→20:00)
[2024-03-11] MEDS: SENNOSIDES 8.6 MG TABLET PO ×2 (08:00→20:52)
[2024-03-11] MEDS: ASCORBIC ACID 500 MG TABLET PO ×2 (08:00→20:52)
[2024-03-11] MEDS: guaiFENesin Liq 100 MG/5 ML LIQUID PO ×3 (08:00→23:15)
[2024-03-11] MEDS: ACETAMINOPHEN 325 MG TABLET 650 MG PO ×2 (11:43→20:50)
--- NOTE | 2024-03-11 13:00 | CHAP ---
Patient was sleeping but was prayed for by the Spiritual Care Volunteer. (Volunteer was in the hospital sub-acute from 12:30-13:00).
[2024-03-12] VITALS (13 sets, daily range): BP systolic 98–117; BP diastolic 64–74; PULSE 56–97; RESP 14–29; TEMP 36.2–36.8; O2SAT 97–99
[2024-03-12] MEDS: HYDRO PO ×2 (01:00→16:00)
[2024-03-12] MEDS: ACET PO ×2 (01:00→16:00)
[2024-03-12] MEDS: MIDODRINE 10 MG TABLET GT ×3 (01:14→18:15)
[2024-03-12] MEDS: IPRATROPIUM/ALBUTEROL 3 ML AMPUL.NEB INH ×6 (03:17→23:31)
[2024-03-12] MEDS: PHENAZOPYRIDINE 100 MG TABLET PO (05:36)
[2024-03-12] MEDS: BUDESONIDE 0.5 MG/2 ML AMPUL.NEB INH ×2 (06:59→19:00)
[2024-03-12] MEDS: guaiFENesin Liq 100 MG/5 ML LIQUID PO ×2 (07:26→20:30)
[2024-03-12] MEDS: ASCORBIC ACID 500 MG TABLET PO ×2 (08:31→20:35)
[2024-03-12] MEDS: AMIODARONE 200 MG TABLET PO (08:31)
[2024-03-12] MEDS: ALPRAZolam 0.5 MG TABLET PO ×2 (08:31→20:35)
[2024-03-12] MEDS: FAMOTIDINE 20 MG TABLET PO ×2 (08:32→20:35)
[2024-03-12] MEDS: SENNOSIDES 8.6 MG TABLET PO ×2 (08:32→20:35)
[2024-03-12] MEDS: MULTIVITAMIN 1 TAB TABLET PO (08:32)
--- NOTE | 2024-03-12 12:00 | CHAP ---
Patient was visited by the Spiritual Care Volunteer who prayed silently. (Patient was sleeping.) (Volunteer was in the hospital from 10:00-12:00).
[2024-03-12] MEDS: ACETAMINOPHEN 325 MG TABLET 650 MG PO (20:30)
--- NOTE | 2024-03-12 22:19 | PD.SAPROG ---
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 (2) Chronic respiratory failure with hypoxia and hypercapnia: Status: Chronic (3) Ventilator dependent: Status: Chronic (4) Congestive heart failure: Status: Chronic (5) Chronic obstructive pulmonary disease, unspecified: Status: Chronic (6) Atrial fibrillation: Status: Chronic (7) Tracheostomy in place: Status: Chronic (8) Chronic anemia: Status: Chronic SUBJECTIVE Fever:: none GI:: none Shortness of Breath:: unchanged GI:: nausea Pain:: none OBJECTIVE Most recent vital signs: Last Vital Signs Temp 98.3 F 03/12/24 17:57 Pulse 81 03/12/24 17:57 Resp 23 H 03/12/24 17:57 BP 117/74 03/12/24 17:57 Pulse Ox 98 03/12/24 17:57 O2 Del Method Mechanical Ventilation 03/12/24 05:48 FiO2 35 03/12/24 14:46 Neurological:: alert Speech:: nods head, mouths words and appropriate Answers questions:: yes Respiratory:: shallow breathing and rhonchi Cardiovascular: irregular Abdomen: soft Tracheostomy:: to ventilator Feeding per:: po ASSESSMENT & PLAN Assessment: Patient continued on antibiotics after being received back from acute care where she was treated for UTI and pneumonia. Responded well and now stable. Tolerating ventilatory support. Not weanable because of generalized weakness. Tolerating feeding. Prognosis is very guarded. Patient aware. Family kept aware as well. Discussed with pt this week about setting ET tube in a way so the pt can speak while on Ventilator. pt was satisfied with the settings without compromising ventilation. Plan: Current treatment as well as ventilator settings reviewed and continued
[2024-03-13] VITALS (12 sets, daily range): BP systolic 91–113; BP diastolic 56–68; PULSE 61–86; RESP 15–22; TEMP 36.2–36.7; O2SAT 94–100
[2024-03-13] MEDS: MIDODRINE 10 MG TABLET GT ×5 (00:10→23:35)
[2024-03-13] MEDS: ACET PO ×3 (00:12→23:37)
[2024-03-13] MEDS: HYDRO PO ×3 (00:12→23:37)
[2024-03-13] MEDS: IPRATROPIUM/ALBUTEROL 3 ML AMPUL.NEB INH ×6 (02:03→22:31)
[2024-03-13] MEDS: guaiFENesin Liq 100 MG/5 ML LIQUID PO ×3 (02:30→16:04)
[2024-03-13] MEDS: BUDESONIDE 0.5 MG/2 ML AMPUL.NEB INH ×2 (07:15→18:40)
[2024-03-13] MEDS: ACETAMINOPHEN 325 MG TABLET 650 MG PO ×2 (09:03→21:10)
[2024-03-13] MEDS: ASCORBIC ACID 500 MG TABLET PO ×2 (09:05→21:09)
[2024-03-13] MEDS: AMIODARONE 200 MG TABLET PO (09:05)
[2024-03-13] MEDS: SENNOSIDES 8.6 MG TABLET PO ×2 (09:06→21:10)
[2024-03-13] MEDS: ALPRAZolam 0.5 MG TABLET PO ×2 (09:06→21:09)
[2024-03-13] MEDS: FAMOTIDINE 20 MG TABLET PO ×2 (09:06→21:10)
[2024-03-13] MEDS: MULTIVITAMIN 1 TAB TABLET PO (09:06)
[2024-03-14] VITALS (11 sets, daily range): BP systolic 98–129; BP diastolic 61–88; PULSE 57–75; RESP 14–20; TEMP 36.3; O2SAT 96–100
[2024-03-14] MEDS: guaiFENesin Liq 100 MG/5 ML LIQUID PO ×2 (01:51→12:00)
[2024-03-14] MEDS: IPRATROPIUM/ALBUTEROL 3 ML AMPUL.NEB INH ×6 (01:58→22:24)
[2024-03-14] MEDS: BUDESONIDE 0.5 MG/2 ML AMPUL.NEB INH ×2 (05:50→18:13)
[2024-03-14] MEDS: MIDODRINE 10 MG TABLET GT ×3 (06:01→18:00)
[2024-03-14] MEDS: ACETAMINOPHEN 325 MG TABLET 650 MG PO ×2 (07:30→16:30)
[2024-03-14] MEDS: ALPRAZolam 0.5 MG TABLET PO ×2 (09:04→20:00)
[2024-03-14] MEDS: ASCORBIC ACID 500 MG TABLET PO ×2 (09:05→21:00)
[2024-03-14] MEDS: AMIODARONE 200 MG TABLET PO (09:05)
[2024-03-14] MEDS: MULTIVITAMIN 1 TAB TABLET PO (09:05)
[2024-03-14] MEDS: FAMOTIDINE 20 MG TABLET PO ×2 (09:05→21:00)
[2024-03-14] MEDS: SENNOSIDES 8.6 MG TABLET PO ×2 (09:06→21:01)
[2024-03-14] MEDS: HYDRO PO ×2 (12:00→21:00)
[2024-03-14] MEDS: ACET PO ×2 (12:00→21:00)
[2024-03-15] VITALS (12 sets, daily range): BP systolic 104–131; BP diastolic 59–72; PULSE 61–77; RESP 15–24; TEMP 36.1–36.6; O2SAT 96–100
[2024-03-15] MEDS: MIDODRINE 10 MG TABLET GT ×4 (00:03→23:53)
[2024-03-15] MEDS: IPRATROPIUM/ALBUTEROL 3 ML AMPUL.NEB INH ×4 (01:50→22:15)
[2024-03-15] MEDS: ACETAMINOPHEN 325 MG TABLET 650 MG PO (04:00)
[2024-03-15] MEDS: ALPRAZolam 0.5 MG TABLET PO ×2 (09:19→20:09)
[2024-03-15] MEDS: HYDRO PO ×2 (09:20→17:27)
[2024-03-15] MEDS: ACET PO ×2 (09:20→17:27)
[2024-03-15] MEDS: MULTIVITAMIN 1 TAB TABLET PO (09:25)
[2024-03-15] MEDS: FAMOTIDINE 20 MG TABLET PO ×2 (09:25→20:10)
[2024-03-15] MEDS: ASCORBIC ACID 500 MG TABLET PO ×2 (09:25→20:10)
[2024-03-15] MEDS: SENNOSIDES 8.6 MG TABLET PO ×2 (09:25→20:10)
[2024-03-15] MEDS: MAGNESIUM HYDROXIDE 30 ML ORAL SUSP ML GT (09:49)
--- NOTE | 2024-03-15 14:35 | PC.SS ---
Resident seen by Podiatry for routine toe nail trim. New order by photographer news, see physicians order.
--- NOTE | 2024-03-15 16:09 | CHAP ---
10:30 AM Visited by spiritual care volunteer Provided prayer for Patient.
[2024-03-15] MEDS: BUDESONIDE 0.5 MG/2 ML AMPUL.NEB INH (18:30)
[2024-03-15] MEDS: BISACODYL 10 MG SUPP.RECT PR (20:11)
[2024-03-16] VITALS (12 sets, daily range): BP systolic 98–116; BP diastolic 59–63; PULSE 56–81; RESP 14–22; TEMP 36.3–36.4; O2SAT 98–100
[2024-03-16] MEDS: IPRATROPIUM/ALBUTEROL 3 ML AMPUL.NEB INH ×6 (02:20→22:20)
[2024-03-16] MEDS: ACET PO ×2 (02:28→14:29)
[2024-03-16] MEDS: HYDRO PO ×2 (02:28→14:29)
[2024-03-16] MEDS: MIDODRINE 10 MG TABLET GT ×3 (05:16→17:33)
[2024-03-16] MEDS: BUDESONIDE 0.5 MG/2 ML AMPUL.NEB INH ×2 (07:20→18:30)
[2024-03-16] MEDS: SENNOSIDES 8.6 MG TABLET PO ×2 (09:00→20:01)
[2024-03-16] MEDS: FAMOTIDINE 20 MG TABLET PO ×2 (09:00→20:01)
[2024-03-16] MEDS: MULTIVITAMIN 1 TAB TABLET PO (09:00)
[2024-03-16] MEDS: ASCORBIC ACID 500 MG TABLET PO ×2 (09:00→20:01)
[2024-03-16] MEDS: ALPRAZolam 0.5 MG TABLET PO ×2 (09:00→20:01)
[2024-03-16] MEDS: ACETAMINOPHEN 325 MG TABLET 650 MG PO ×2 (09:15→20:02)
[2024-03-16] MEDS: AMIODARONE 200 MG TABLET PO (11:08)
--- NOTE | 2024-03-16 13:00 | CHAP ---
10:30 AM Visited by spiritual care volunteer Provided prayer for Patient.
--- NOTE | 2024-03-16 13:16 | PC.NURSE ---
Mrs Blakely Refused to be weighted do to shortness of breath
[2024-03-16] MEDS: guaiFENesin Liq 100 MG/5 ML LIQUID PO ×2 (14:01→20:02)
--- NOTE | 2024-03-16 21:11 | PD.SAPROG ---
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 (2) Chronic respiratory failure with hypoxia and hypercapnia: Status: Chronic (3) Ventilator dependent: Status: Chronic (4) Congestive heart failure: Status: Chronic (5) Chronic obstructive pulmonary disease, unspecified: Status: Chronic (6) Atrial fibrillation: Status: Chronic (7) Tracheostomy in place: Status: Chronic (8) Chronic anemia: Status: Chronic SUBJECTIVE Fever:: none GI:: none Shortness of Breath:: unchanged GI:: nausea Pain:: none OBJECTIVE Most recent vital signs: Last Vital Signs Temp 97.4 F 03/16/24 18:00 Pulse 64 03/16/24 18:00 Resp 20 03/16/24 18:00 BP 116/59 L 03/16/24 18:00 Pulse Ox 100 03/16/24 14:30 O2 Del Method Mechanical Ventilation 03/16/24 05:56 FiO2 35 03/16/24 14:30 Neurological:: alert Speech:: nods head, mouths words and appropriate Answers questions:: yes Respiratory:: shallow breathing and rhonchi Cardiovascular: irregular Abdomen: soft Tracheostomy:: to ventilator Feeding per:: po ASSESSMENT & PLAN Assessment: stable. Tolerating ventilatory support. Not weanable because of generalized weakness. Tolerating feeding. Prognosis is very guarded. Patient aware. Family kept aware as well. Discussed with pt this week about setting ET tube in a way so the pt can speak while on Ventilator. pt was satisfied with the settings without compromising ventilation. Plan: Current treatment as well as ventilator settings reviewed and continued
[2024-03-17] VITALS (12 sets, daily range): BP systolic 96–103; BP diastolic 55–63; PULSE 52–81; RESP 15–22; TEMP 36.3–36.7; O2SAT 95–100
[2024-03-17] MEDS: MIDODRINE 10 MG TABLET GT ×5 (00:09→23:11)
[2024-03-17] MEDS: ACET PO ×3 (01:12→19:40)
[2024-03-17] MEDS: HYDRO PO ×3 (01:12→19:40)
[2024-03-17] MEDS: IPRATROPIUM/ALBUTEROL 3 ML AMPUL.NEB INH ×6 (02:35→22:16)
[2024-03-17] MEDS: ACETAMINOPHEN 325 MG TABLET 650 MG PO ×3 (04:35→23:28)
[2024-03-17] MEDS: BUDESONIDE 0.5 MG/2 ML AMPUL.NEB INH (07:10)
[2024-03-17] MEDS: AMIODARONE 200 MG TABLET PO (08:02)
[2024-03-17] MEDS: MULTIVITAMIN 1 TAB TABLET PO (08:03)
[2024-03-17] MEDS: ASCORBIC ACID 500 MG TABLET PO ×2 (08:03→20:10)
[2024-03-17] MEDS: FAMOTIDINE 20 MG TABLET PO ×2 (08:03→20:11)
[2024-03-17] MEDS: SENNOSIDES 8.6 MG TABLET PO ×2 (08:04→20:11)
[2024-03-17] MEDS: ALPRAZolam 0.5 MG TABLET PO ×2 (09:00→20:10)
[2024-03-17] MEDS: guaiFENesin Liq 100 MG/5 ML LIQUID PO ×2 (12:30→19:40)
--- NOTE | 2024-03-17 16:01 | CHAP ---
11:00 AM Visited by spiritual care volunteer Provided prayer for Patient.
[2024-03-18] VITALS (12 sets, daily range): BP systolic 92–121; BP diastolic 59–67; PULSE 61–74; RESP 14–20; TEMP 36–36.9; O2SAT 94–100
[2024-03-18] MEDS: guaiFENesin Liq 100 MG/5 ML LIQUID PO (02:23)
[2024-03-18] MEDS: IPRATROPIUM/ALBUTEROL 3 ML AMPUL.NEB INH ×6 (02:38→22:18)
[2024-03-18] MEDS: MIDODRINE 10 MG TABLET GT ×3 (05:29→18:49)
[2024-03-18] MEDS: BUDESONIDE 0.5 MG/2 ML AMPUL.NEB INH ×2 (07:08→18:20)
[2024-03-18] MEDS: ALPRAZolam 0.5 MG TABLET PO ×2 (09:16→21:00)
[2024-03-18] MEDS: FAMOTIDINE 20 MG TABLET PO ×2 (09:25→20:44)
[2024-03-18] MEDS: AMIODARONE 200 MG TABLET PO (09:25)
[2024-03-18] MEDS: MULTIVITAMIN 1 TAB TABLET PO (09:25)
[2024-03-18] MEDS: ASCORBIC ACID 500 MG TABLET PO ×2 (09:25→20:44)
[2024-03-18] MEDS: SENNOSIDES 8.6 MG TABLET PO ×2 (09:25→20:44)
[2024-03-18] MEDS: HYDRO PO ×2 (14:15→21:45)
[2024-03-18] MEDS: ACET PO ×2 (14:15→21:45)
[2024-03-18] MEDS: MAGNESIUM HYDROXIDE 30 ML ORAL SUSP ML GT (20:52)
[2024-03-19] VITALS (12 sets, daily range): BP systolic 105–144; BP diastolic 59–72; PULSE 63–79; RESP 14–23; TEMP 36–36.7; O2SAT 97–99
[2024-03-19] MEDS: MIDODRINE 10 MG TABLET GT ×4 (00:34→17:51)
[2024-03-19] MEDS: IPRATROPIUM/ALBUTEROL 3 ML AMPUL.NEB INH ×6 (02:02→22:08)
[2024-03-19] MEDS: ACETAMINOPHEN 325 MG TABLET 650 MG PO ×2 (06:05)
[2024-03-19] MEDS: BUDESONIDE 0.5 MG/2 ML AMPUL.NEB INH ×2 (07:07→18:58)
[2024-03-19] MEDS: ALPRAZolam 0.5 MG TABLET PO ×2 (08:38→21:00)
[2024-03-19] MEDS: AMIODARONE 200 MG TABLET PO (08:39)
[2024-03-19] MEDS: SENNOSIDES 8.6 MG TABLET PO ×2 (08:39→20:08)
[2024-03-19] MEDS: FAMOTIDINE 20 MG TABLET PO ×2 (08:39→20:08)
[2024-03-19] MEDS: ASCORBIC ACID 500 MG TABLET PO ×2 (08:39→20:06)
[2024-03-19] MEDS: MULTIVITAMIN 1 TAB TABLET PO (08:39)
--- NOTE | 2024-03-19 10:44 | CHAP ---
Patient expressed gratitude for the visit and prayer.
--- NOTE | 2024-03-19 14:00 | PC.SS ---
Room visit: Resident is laying in bed resting, she said she had a good morning since receiving a visit from her son this morning. Resident has no changes in care or condition, she remains on ventilator with trach in place. Resident will remain in current care as she requires total care, she will continue to have all subacute care needs met in facility. This SSD will continue to make daily contact with resident and monitor for changes in mood and behavior.
[2024-03-19] MEDS: HYDRO PO (20:00)
[2024-03-19] MEDS: ACET PO (20:00)
[2024-03-20] VITALS (13 sets, daily range): BP systolic 116–149; BP diastolic 55–78; PULSE 57–95; RESP 14–22; TEMP 36–36.5; O2SAT 97–100
[2024-03-20] MEDS: MIDODRINE 10 MG TABLET GT ×3 (00:12→12:30)
[2024-03-20] MEDS: ACETAMINOPHEN 325 MG TABLET 650 MG PO ×2 (02:00→21:30)
[2024-03-20] MEDS: IPRATROPIUM/ALBUTEROL 3 ML AMPUL.NEB INH ×6 (02:56→22:10)
[2024-03-20] MEDS: BUDESONIDE 0.5 MG/2 ML AMPUL.NEB INH ×2 (07:10→18:20)
[2024-03-20] MEDS: ACET PO ×2 (07:40→15:44)
[2024-03-20] MEDS: HYDRO PO ×2 (07:40→15:44)
[2024-03-20] MEDS: SENNOSIDES 8.6 MG TABLET PO ×2 (09:06→20:20)
[2024-03-20] MEDS: ASCORBIC ACID 500 MG TABLET PO ×2 (09:06→20:19)
[2024-03-20] MEDS: FAMOTIDINE 20 MG TABLET PO ×2 (09:06→20:20)
[2024-03-20] MEDS: MULTIVITAMIN 1 TAB TABLET PO (09:06)
[2024-03-20] MEDS: ALPRAZolam 0.5 MG TABLET PO ×2 (09:10→20:19)
[2024-03-20] MEDS: CARBAMIDE PEROXIDE OTIC SOL 15 ML BTL 5 DROP BOTH EARS (20:19)
--- NOTE | 2024-03-20 23:33 | PD.SAPROG ---
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 (2) Chronic respiratory failure with hypoxia and hypercapnia: Status: Chronic (3) Ventilator dependent: Status: Chronic (4) Congestive heart failure: Status: Chronic (5) Chronic obstructive pulmonary disease, unspecified: Status: Chronic (6) Atrial fibrillation: Status: Chronic (7) Tracheostomy in place: Status: Chronic (8) Chronic anemia: Status: Chronic SUBJECTIVE Fever:: none GI:: none Shortness of Breath:: unchanged GI:: nausea Pain:: none OBJECTIVE Most recent vital signs: Last Vital Signs Temp 97 F 03/20/24 17:04 Pulse 67 03/20/24 18:20 Resp 14 03/20/24 17:04 BP 149/78 H 03/20/24 17:04 Pulse Ox 99 03/20/24 18:20 O2 Del Method Mechanical Ventilation 03/20/24 06:00 FiO2 35 03/20/24 18:20 Neurological:: alert Speech:: nods head, mouths words and appropriate Answers questions:: yes Respiratory:: shallow breathing and rhonchi Cardiovascular: irregular Abdomen: soft Tracheostomy:: to ventilator Feeding per:: po ASSESSMENT & PLAN Assessment: stable. Tolerating ventilatory support. Not weanable because of generalized weakness. Tolerating feeding. Prognosis is very guarded. Patient aware. Family kept aware as well. Discussed with pt this week about setting ET tube in a way so the pt can speak while on Ventilator. pt was satisfied with the settings without compromising ventilation. Plan: Current treatment as well as ventilator settings reviewed and continued
[2024-03-21] VITALS (12 sets, daily range): BP systolic 92–114; BP diastolic 56–64; PULSE 60–89; RESP 14–22; TEMP 36.2–36.9; O2SAT 93–99
[2024-03-21] MEDS: MIDODRINE 10 MG TABLET GT ×3 (00:05→12:22)
[2024-03-21] MEDS: IPRATROPIUM/ALBUTEROL 3 ML AMPUL.NEB INH ×6 (02:40→22:25)
[2024-03-21] MEDS: HYDRO PO ×2 (03:22→13:15)
[2024-03-21] MEDS: ACET PO ×2 (03:22→13:15)
[2024-03-21] MEDS: BUDESONIDE 0.5 MG/2 ML AMPUL.NEB INH ×2 (07:05→19:20)
[2024-03-21] MEDS: ALPRAZolam 0.5 MG TABLET PO ×2 (09:30→21:35)
[2024-03-21] MEDS: FAMOTIDINE 20 MG TABLET PO ×2 (09:32→21:35)
[2024-03-21] MEDS: SENNOSIDES 8.6 MG TABLET PO ×2 (09:33→21:36)
[2024-03-21] MEDS: MULTIVITAMIN 1 TAB TABLET PO (09:33)
[2024-03-21] MEDS: AMIODARONE 200 MG TABLET PO (09:55)
[2024-03-21] MEDS: ASCORBIC ACID 500 MG TABLET PO (21:35)
[2024-03-22] VITALS (11 sets, daily range): BP systolic 109–164; BP diastolic 62–86; PULSE 66–83; RESP 14–19; TEMP 36.1–36.3; O2SAT 95–100
[2024-03-22] MEDS: ACETAMINOPHEN 325 MG TABLET 650 MG PO ×2 (00:10→20:59)
[2024-03-22] MEDS: IPRATROPIUM/ALBUTEROL 3 ML AMPUL.NEB INH ×6 (02:25→22:10)
[2024-03-22] MEDS: HYDRO PO ×2 (03:33→17:25)
[2024-03-22] MEDS: ACET PO ×2 (03:33→17:25)
[2024-03-22] MEDS: MIDODRINE 10 MG TABLET GT ×2 (05:06→12:06)
[2024-03-22] MEDS: BUDESONIDE 0.5 MG/2 ML AMPUL.NEB INH ×2 (07:14→18:25)
[2024-03-22] MEDS: AMIODARONE 200 MG TABLET PO (09:47)
[2024-03-22] MEDS: ALPRAZolam 0.5 MG TABLET PO ×2 (09:47→21:00)
[2024-03-22] MEDS: ASCORBIC ACID 500 MG TABLET PO ×2 (09:48→21:00)
[2024-03-22] MEDS: FAMOTIDINE 20 MG TABLET PO ×2 (09:48→21:01)
[2024-03-22] MEDS: MULTIVITAMIN 1 TAB TABLET PO (09:48)
[2024-03-22] MEDS: SENNOSIDES 8.6 MG TABLET PO ×2 (09:48→21:01)
[2024-03-22] MEDS: MAGNESIUM HYDROXIDE 30 ML ORAL SUSP ML GT (21:01)
[2024-03-23] VITALS (12 sets, daily range): BP systolic 108–136; BP diastolic 63–78; PULSE 56–86; RESP 14–26; TEMP 36.2–37; O2SAT 92–99
[2024-03-23] MEDS: MIDODRINE 10 MG TABLET GT ×3 (00:43→17:39)
[2024-03-23] MEDS: ACET PO ×3 (01:00→20:30)
[2024-03-23] MEDS: HYDRO PO ×3 (01:00→20:30)
[2024-03-23] MEDS: IPRATROPIUM/ALBUTEROL 3 ML AMPUL.NEB INH ×5 (02:05→22:35)
[2024-03-23] MEDS: BUDESONIDE 0.5 MG/2 ML AMPUL.NEB INH ×2 (07:18→18:40)
--- NOTE | 2024-03-23 08:37 | CHAP ---
Patient was visited by a Spiritual Care Volunteer on 03/22/2024 between 0900 and 1300 and received comfort, encouragement and/or prayer.
[2024-03-23] MEDS: ALPRAZolam 0.5 MG TABLET PO ×2 (08:52→21:00)
[2024-03-23] MEDS: ASCORBIC ACID 500 MG TABLET PO ×2 (08:53→20:43)
[2024-03-23] MEDS: FAMOTIDINE 20 MG TABLET PO ×2 (08:53→20:45)
[2024-03-23] MEDS: AMIODARONE 200 MG TABLET PO (08:53)
[2024-03-23] MEDS: SENNOSIDES 8.6 MG TABLET PO ×2 (08:54→20:45)
[2024-03-23] MEDS: MULTIVITAMIN 1 TAB TABLET PO (08:54)
[2024-03-23] MEDS: ACETAMINOPHEN 325 MG TABLET 650 MG PO (16:09)
[2024-03-24] VITALS (12 sets, daily range): BP systolic 97–138; BP diastolic 59–71; PULSE 58–85; RESP 14–27; TEMP 36.1–36.8; O2SAT 95–99
[2024-03-24] MEDS: MIDODRINE 10 MG TABLET GT ×2 (00:30→05:33)
[2024-03-24] MEDS: IPRATROPIUM/ALBUTEROL 3 ML AMPUL.NEB INH ×6 (02:05→22:32)
[2024-03-24] MEDS: ACETAMINOPHEN 325 MG TABLET 650 MG PO (05:00)
[2024-03-24] MEDS: BUDESONIDE 0.5 MG/2 ML AMPUL.NEB INH ×2 (06:39→20:23)
[2024-03-24] MEDS: ALPRAZolam 0.5 MG TABLET PO ×2 (08:09→21:03)
[2024-03-24] MEDS: FAMOTIDINE 20 MG TABLET PO ×2 (08:10→20:59)
[2024-03-24] MEDS: MULTIVITAMIN 1 TAB TABLET PO (08:10)
[2024-03-24] MEDS: ASCORBIC ACID 500 MG TABLET PO ×2 (08:10→20:59)
[2024-03-24] MEDS: SENNOSIDES 8.6 MG TABLET PO ×2 (08:10→21:00)
--- NOTE | 2024-03-24 08:13 | CHAP ---
Patient was visited by a Spiritual Care Volunteer on 03/23/2024 between 0900 and 1200 and received comfort, encouragement and/or prayer.
[2024-03-24] MEDS: ACET PO ×2 (08:18→17:31)
[2024-03-24] MEDS: HYDRO PO ×2 (08:18→17:31)
[2024-03-24] MEDS: guaiFENesin Liq 100 MG/5 ML LIQUID PO ×3 (09:41→22:31)
--- NOTE | 2024-03-24 11:15 | CHAP ---
Patient was visited by Spiritual Care Volunteer who prayed for them silently (sleeping). (Volunteer was in the hospital from 09:00-C 11:15)
--- NOTE | 2024-03-24 13:00 | PD.SAPROG ---
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 (2) Chronic respiratory failure with hypoxia and hypercapnia: Status: Chronic (3) Ventilator dependent: Status: Chronic (4) Congestive heart failure: Status: Chronic (5) Chronic obstructive pulmonary disease, unspecified: Status: Chronic (6) Atrial fibrillation: Status: Chronic (7) Tracheostomy in place: Status: Chronic (8) Chronic anemia: Status: Chronic SUBJECTIVE Fever:: none GI:: none Shortness of Breath:: unchanged GI:: nausea Pain:: none OBJECTIVE Most recent vital signs: Last Vital Signs Temp 97.3 F 03/28/24 12:00 Pulse 68 03/28/24 14:17 Resp 14 03/28/24 14:17 BP 109/70 03/28/24 12:00 Pulse Ox 99 03/28/24 14:17 O2 Del Method Mechanical Ventilation 03/27/24 06:00 FiO2 35 03/28/24 14:17 Neurological:: alert Speech:: nods head, mouths words and appropriate Answers questions:: yes Respiratory:: shallow breathing and rhonchi Cardiovascular: irregular Abdomen: soft Tracheostomy:: to ventilator Feeding per:: po ASSESSMENT & PLAN Assessment: stable. Tolerating ventilatory support. Not weanable because of generalized weakness. Tolerating feeding. Prognosis is very guarded. Patient aware. Family kept aware as well. Discussed with pt this week about setting ET tube in a way so the pt can speak while on Ventilator. pt was satisfied with the settings without compromising ventilation. Plan: Current treatment as well as ventilator settings reviewed and continued
[2024-03-25] VITALS (12 sets, daily range): BP systolic 102–154; BP diastolic 63–84; PULSE 65–83; RESP 14–24; TEMP 36.3–36.8; O2SAT 96–99
[2024-03-25] MEDS: ACET PO ×3 (01:47→18:22)
[2024-03-25] MEDS: HYDRO PO ×3 (01:47→18:22)
[2024-03-25] MEDS: IPRATROPIUM/ALBUTEROL 3 ML AMPUL.NEB INH ×6 (03:11→22:32)
[2024-03-25] MEDS: BUDESONIDE 0.5 MG/2 ML AMPUL.NEB INH ×2 (06:12→18:15)
[2024-03-25] MEDS: guaiFENesin Liq 100 MG/5 ML LIQUID PO ×2 (06:51→16:42)
[2024-03-25] MEDS: ALPRAZolam 0.5 MG TABLET PO ×2 (08:47→20:02)
[2024-03-25] MEDS: AMIODARONE 200 MG TABLET PO (08:47)
[2024-03-25] MEDS: FAMOTIDINE 20 MG TABLET PO ×2 (08:47→20:02)
[2024-03-25] MEDS: MULTIVITAMIN 1 TAB TABLET PO (08:47)
[2024-03-25] MEDS: ASCORBIC ACID 500 MG TABLET PO ×2 (08:47→20:02)
[2024-03-25] MEDS: SENNOSIDES 8.6 MG TABLET PO ×2 (08:48→20:03)
--- NOTE | 2024-03-25 11:15 | CHAP ---
Patient was visited by Spiritual Care Volunteer who prayed for them silently (Patient sleeping). (Volunteer was in the hospital from 09:00-11:15)
[2024-03-25] MEDS: MIDODRINE 10 MG TABLET GT ×2 (11:20)
[2024-03-26] VITALS (13 sets, daily range): BP systolic 106–144; BP diastolic 62–86; PULSE 62–93; RESP 14–23; TEMP 36.2–36.3; O2SAT 93–100
[2024-03-26] MEDS: ACETAMINOPHEN 325 MG TABLET 650 MG PO (02:14)
[2024-03-26] MEDS: IPRATROPIUM/ALBUTEROL 3 ML AMPUL.NEB INH ×6 (02:51→22:11)
[2024-03-26] MEDS: MIDODRINE 10 MG TABLET GT ×2 (05:32→11:49)
[2024-03-26] MEDS: BUDESONIDE 0.5 MG/2 ML AMPUL.NEB INH ×2 (06:39→18:45)
[2024-03-26] MEDS: AMIODARONE 200 MG TABLET PO (09:01)
[2024-03-26] MEDS: MULTIVITAMIN 1 TAB TABLET PO (09:01)
[2024-03-26] MEDS: FAMOTIDINE 20 MG TABLET PO ×2 (09:01→20:03)
[2024-03-26] MEDS: ASCORBIC ACID 500 MG TABLET PO ×2 (09:01→20:02)
[2024-03-26] MEDS: SENNOSIDES 8.6 MG TABLET PO ×2 (09:02→20:03)
[2024-03-26] MEDS: ALPRAZolam 0.5 MG TABLET PO ×2 (09:02→20:02)
[2024-03-26] MEDS: guaiFENesin Liq 100 MG/5 ML LIQUID PO ×2 (09:02→17:19)
--- NOTE | 2024-03-26 11:15 | CHAP ---
Patient visited by the Spiritual Care Voluinteer who prayed for them. (Spiritual Care Volunteer was in hospital from c9:00-11:15)
[2024-03-26] MEDS: HYDRO PO ×2 (11:49→20:03)
[2024-03-26] MEDS: ACET PO ×2 (11:49→20:03)
[2024-03-26] MEDS: BISACODYL 10 MG SUPP.RECT PR (12:30)
--- NOTE | 2024-03-26 15:27 | PC.SS ---
Room visit: resident is alert and oriented, POA in place. Resident is laying in bed with head of the bed elevated with call light properly placed. Resident has trach in place on ventilator with GT in place for medication and nutrition. Resident has clear speech, she is able to make needs known. Resident daughter in law Aissatou Blakely is decision maker. Resident will remain in current care and will continue to have all subacute care needs met by staff.
[2024-03-27] VITALS (12 sets, daily range): BP systolic 104–129; BP diastolic 56–78; PULSE 61–88; RESP 14–22; TEMP 36.1–36.4; O2SAT 95–99
[2024-03-27] MEDS: MIDODRINE 10 MG TABLET GT ×3 (00:27→12:45)
[2024-03-27] MEDS: IPRATROPIUM/ALBUTEROL 3 ML AMPUL.NEB INH ×6 (02:10→22:40)
[2024-03-27] MEDS: guaiFENesin Liq 100 MG/5 ML LIQUID PO ×2 (02:12→19:00)
[2024-03-27] MEDS: ACETAMINOPHEN 325 MG TABLET 650 MG PO ×2 (02:12→23:00)
[2024-03-27] MEDS: ACET PO ×3 (04:35→20:30)
[2024-03-27] MEDS: HYDRO PO ×3 (04:35→20:30)
[2024-03-27] MEDS: AMIODARONE 200 MG TABLET PO (09:04)
[2024-03-27] MEDS: ASCORBIC ACID 500 MG TABLET PO ×2 (09:04→20:53)
[2024-03-27] MEDS: SENNOSIDES 8.6 MG TABLET PO ×2 (09:05→20:54)
[2024-03-27] MEDS: ALPRAZolam 0.5 MG TABLET PO ×2 (09:05→21:00)
[2024-03-27] MEDS: MULTIVITAMIN 1 TAB TABLET PO (10:05)
[2024-03-27] MEDS: FAMOTIDINE 20 MG TABLET PO ×2 (10:05→20:54)
[2024-03-27] MEDS: BUDESONIDE 0.5 MG/2 ML AMPUL.NEB INH (18:35)
[2024-03-28] VITALS (11 sets, daily range): BP systolic 109–126; BP diastolic 64–73; PULSE 64–88; RESP 14–26; TEMP 36.1–36.3; O2SAT 96–99
[2024-03-28] MEDS: MIDODRINE 10 MG TABLET GT ×3 (00:14→12:33)
[2024-03-28] MEDS: IPRATROPIUM/ALBUTEROL 3 ML AMPUL.NEB INH ×6 (02:00→22:50)
[2024-03-28] MEDS: guaiFENesin Liq 100 MG/5 ML LIQUID PO (06:00)
[2024-03-28] MEDS: BUDESONIDE 0.5 MG/2 ML AMPUL.NEB INH ×2 (07:34→18:20)
[2024-03-28] MEDS: ALPRAZolam 0.5 MG TABLET PO ×2 (08:38→21:00)
[2024-03-28] MEDS: FAMOTIDINE 20 MG TABLET PO ×2 (08:39→21:12)
[2024-03-28] MEDS: ASCORBIC ACID 500 MG TABLET PO ×2 (08:39→21:12)
[2024-03-28] MEDS: SENNOSIDES 8.6 MG TABLET PO ×2 (08:39→21:12)
[2024-03-28] MEDS: AMIODARONE 200 MG TABLET PO (08:39)
[2024-03-28] MEDS: MULTIVITAMIN 1 TAB TABLET PO (08:39)
[2024-03-28] MEDS: ACETAMINOPHEN 325 MG TABLET 650 MG PO (21:10)
[2024-03-28] MEDS: ACET PO (22:00)
[2024-03-28] MEDS: HYDRO PO (22:00)
[2024-03-29] VITALS (12 sets, daily range): BP systolic 111–149; BP diastolic 64–68; PULSE 59–82; RESP 16–24; TEMP 36–36.8; O2SAT 95–99
[2024-03-29] MEDS: MIDODRINE 10 MG TABLET GT ×4 (00:44→23:29)
[2024-03-29] MEDS: IPRATROPIUM/ALBUTEROL 3 ML AMPUL.NEB INH ×6 (02:00→22:00)
[2024-03-29] MEDS: ACETAMINOPHEN 325 MG TABLET 650 MG PO (05:00)
[2024-03-29] MEDS: guaiFENesin Liq 100 MG/5 ML LIQUID PO ×3 (05:30→21:15)
[2024-03-29] MEDS: BUDESONIDE 0.5 MG/2 ML AMPUL.NEB INH ×2 (07:27→19:10)
[2024-03-29] MEDS: ALPRAZolam 0.5 MG TABLET PO ×2 (08:13→21:00)
[2024-03-29] MEDS: AMIODARONE 200 MG TABLET PO (08:14)
[2024-03-29] MEDS: ASCORBIC ACID 500 MG TABLET PO ×2 (08:15→20:24)
[2024-03-29] MEDS: MULTIVITAMIN 1 TAB TABLET PO (08:15)
[2024-03-29] MEDS: FAMOTIDINE 20 MG TABLET PO ×2 (08:15→20:24)
[2024-03-29] MEDS: SENNOSIDES 8.6 MG TABLET PO ×2 (08:15→20:24)
[2024-03-29] MEDS: ACET PO ×2 (09:45→19:30)
[2024-03-29] MEDS: HYDRO PO ×2 (09:45→19:30)
[2024-03-30] VITALS (11 sets, daily range): BP systolic 99–127; BP diastolic 49–67; PULSE 45–88; RESP 16–20; TEMP 36.1–36.4; O2SAT 96–99
[2024-03-30] MEDS: IPRATROPIUM/ALBUTEROL 3 ML AMPUL.NEB INH ×5 (02:10→22:10)
[2024-03-30] MEDS: MIDODRINE 10 MG TABLET GT ×3 (06:14→23:42)
[2024-03-30] MEDS: BUDESONIDE 0.5 MG/2 ML AMPUL.NEB INH ×2 (07:29→18:20)
--- NOTE | 2024-03-30 08:13 | CHAP ---
Patient was visited by a Spiritual Care volunteer on 03/29/2024 between 1230 and 1400 and received comfort, encouragement and/or prayer.
[2024-03-30] MEDS: ALPRAZolam 0.5 MG TABLET PO ×2 (09:20→21:00)
[2024-03-30] MEDS: AMIODARONE 200 MG TABLET PO (09:20)
[2024-03-30] MEDS: FAMOTIDINE 20 MG TABLET PO ×2 (09:20→20:54)
[2024-03-30] MEDS: ASCORBIC ACID 500 MG TABLET PO ×2 (09:20→20:53)
[2024-03-30] MEDS: MULTIVITAMIN 1 TAB TABLET PO (09:20)
[2024-03-30] MEDS: SENNOSIDES 8.6 MG TABLET PO ×2 (09:21→20:55)
[2024-03-30] MEDS: HYDRO PO ×2 (09:48→18:03)
[2024-03-30] MEDS: ACET PO ×2 (09:48→18:03)
[2024-03-30] MEDS: guaiFENesin Liq 100 MG/5 ML LIQUID PO ×2 (11:10→18:03)
[2024-03-30] MEDS: ACETAMINOPHEN 325 MG TABLET 650 MG PO (13:57)
--- NOTE | 2024-03-30 21:39 | PD.SAPROG ---
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 (2) Chronic respiratory failure with hypoxia and hypercapnia: Status: Chronic (3) Ventilator dependent: Status: Chronic (4) Congestive heart failure: Status: Chronic (5) Chronic obstructive pulmonary disease, unspecified: Status: Chronic (6) Atrial fibrillation: Status: Chronic (7) Tracheostomy in place: Status: Chronic (8) Chronic anemia: Status: Chronic SUBJECTIVE Fever:: none GI:: none Shortness of Breath:: unchanged GI:: nausea Pain:: none OBJECTIVE Most recent vital signs: Last Vital Signs Temp 97.6 F 03/30/24 17:36 Pulse 45 L 03/30/24 18:20 Resp 19 03/30/24 18:20 BP 112/67 03/30/24 17:36 Pulse Ox 97 03/30/24 18:20 O2 Del Method Mechanical Ventilation 03/28/24 18:00 FiO2 35 03/30/24 18:20 Neurological:: alert Speech:: nods head, mouths words and appropriate Answers questions:: yes Respiratory:: shallow breathing and rhonchi Cardiovascular: irregular Abdomen: soft Tracheostomy:: to ventilator Feeding per:: po ASSESSMENT & PLAN Assessment: stable. Tolerating ventilatory support. Not weanable because of generalized weakness. Tolerating feeding. Prognosis is very guarded. Patient aware. Family kept aware as well. Discussed with pt this week about setting ET tube in a way so the pt can speak while on Ventilator. pt was satisfied with the settings without compromising ventilation. No new issues. Pt seems happy. Plan: Current treatment as well as ventilator settings reviewed and continued
[2024-03-31] VITALS (12 sets, daily range): BP systolic 110–132; BP diastolic 57–71; PULSE 57–81; RESP 14–26; TEMP 36.1–36.6; O2SAT 97–100
[2024-03-31] MEDS: ACETAMINOPHEN 325 MG TABLET 650 MG PO ×3 (01:00→14:17)
[2024-03-31] MEDS: ACET PO ×2 (02:00→12:19)
[2024-03-31] MEDS: HYDRO PO ×2 (02:00→12:19)
[2024-03-31] MEDS: IPRATROPIUM/ALBUTEROL 3 ML AMPUL.NEB INH ×6 (02:15→22:10)
[2024-03-31] MEDS: MIDODRINE 10 MG TABLET GT ×2 (05:30→12:19)
[2024-03-31] MEDS: BUDESONIDE 0.5 MG/2 ML AMPUL.NEB INH ×2 (06:14→19:10)
[2024-03-31] MEDS: guaiFENesin Liq 100 MG/5 ML LIQUID PO ×2 (07:36→20:04)
--- NOTE | 2024-03-31 08:25 | CHAP ---
Patient was visited by a Spiritual Care Volunteer on 03/30/2024 between 1130 and 1210 and received encouragement and/or prayer.
[2024-03-31] MEDS: MULTIVITAMIN 1 TAB TABLET PO (09:00)
[2024-03-31] MEDS: AMIODARONE 200 MG TABLET PO (09:00)
[2024-03-31] MEDS: FAMOTIDINE 20 MG TABLET PO ×2 (09:00→20:03)
[2024-03-31] MEDS: SENNOSIDES 8.6 MG TABLET PO ×2 (09:00→20:04)
[2024-03-31] MEDS: ASCORBIC ACID 500 MG TABLET PO ×2 (09:00→20:03)
[2024-03-31] MEDS: ALPRAZolam 0.5 MG TABLET PO ×2 (09:02→20:03)
--- NOTE | 2024-03-31 13:13 | CHAP ---
10:00 AM Visited by spiritual care volunteer Provided prayer for Patient.
[2024-04-01] VITALS (13 sets, daily range): BP systolic 105–135; BP diastolic 50–73; PULSE 58–78; RESP 14–24; TEMP 36.2–36.7; O2SAT 96–100
[2024-04-01] MEDS: ACET PO ×3 (01:15→22:08)
[2024-04-01] MEDS: HYDRO PO ×3 (01:15→22:08)
[2024-04-01] MEDS: IPRATROPIUM/ALBUTEROL 3 ML AMPUL.NEB INH ×6 (02:10→22:13)
[2024-04-01] MEDS: guaiFENesin Liq 100 MG/5 ML LIQUID PO ×2 (05:27→12:10)
[2024-04-01] MEDS: MIDODRINE 10 MG TABLET GT ×4 (06:00→17:29)
[2024-04-01] MEDS: BUDESONIDE 0.5 MG/2 ML AMPUL.NEB INH ×2 (06:12→19:03)
[2024-04-01] MEDS: ALPRAZolam 0.5 MG TABLET PO ×2 (09:40→20:29)
[2024-04-01] MEDS: ASCORBIC ACID 500 MG TABLET PO ×2 (09:41→20:29)
[2024-04-01] MEDS: AMIODARONE 200 MG TABLET PO (09:41)
[2024-04-01] MEDS: CARBAMIDE PEROXIDE OTIC SOL 15 ML BTL 5 DROP BOTH EARS (09:42)
[2024-04-01] MEDS: FAMOTIDINE 20 MG TABLET PO ×2 (09:42→20:30)
[2024-04-01] MEDS: MULTIVITAMIN 1 TAB TABLET PO (09:42)
[2024-04-01] MEDS: SENNOSIDES 8.6 MG TABLET PO ×2 (09:42→20:30)
[2024-04-01] MEDS: ACETAMINOPHEN 325 MG TABLET 650 MG PO (15:15)
[2024-04-02] VITALS (13 sets, daily range): BP systolic 113–132; BP diastolic 58–72; PULSE 52–86; RESP 15–23; TEMP 36.1–36.6; O2SAT 96–100
[2024-04-02] MEDS: IPRATROPIUM/ALBUTEROL 3 ML AMPUL.NEB INH ×6 (02:11→22:10)
[2024-04-02] MEDS: guaiFENesin Liq 100 MG/5 ML LIQUID PO ×3 (05:00→20:11)
[2024-04-02] MEDS: MIDODRINE 10 MG TABLET GT ×4 (06:36→23:46)
[2024-04-02] MEDS: BUDESONIDE 0.5 MG/2 ML AMPUL.NEB INH ×2 (07:20→18:12)
[2024-04-02] MEDS: FAMOTIDINE 20 MG TABLET PO ×2 (09:02→20:11)
[2024-04-02] MEDS: ASCORBIC ACID 500 MG TABLET PO ×2 (09:02→20:10)
[2024-04-02] MEDS: AMIODARONE 200 MG TABLET PO (09:02)
[2024-04-02] MEDS: MULTIVITAMIN 1 TAB TABLET PO (09:02)
[2024-04-02] MEDS: SENNOSIDES 8.6 MG TABLET PO (09:03)
[2024-04-02] MEDS: ALPRAZolam 0.5 MG TABLET PO ×2 (09:03→20:10)
--- NOTE | 2024-04-02 10:13 | CHAP ---
Patient expressed gratitude for visit and prayer.
[2024-04-02] MEDS: ACET PO ×2 (12:59→23:45)
[2024-04-02] MEDS: HYDRO PO ×2 (12:59→23:45)
--- NOTE | 2024-04-02 15:52 | PC.SS ---
Room visit: Resident is laying in bed with head of the bed elevated with call light properly placed with no signs of distress. Resident son was at bedside. Resident remains on ventilator with trach in place and GT in place for medication and nutrition. Resident is able to assist with some ADL'S she has clear speech able to make needs known. Resident will remain in current care and will continue to have all subacute care needs met by staff. Resident to be monitored for changes in mood and behavior.
[2024-04-03] VITALS (12 sets, daily range): BP systolic 107–122; BP diastolic 54–63; PULSE 50–84; RESP 14–21; TEMP 35.9–36.5; O2SAT 97–100
[2024-04-03] MEDS: IPRATROPIUM/ALBUTEROL 3 ML AMPUL.NEB INH ×6 (02:07→22:15)
[2024-04-03] MEDS: ACETAMINOPHEN 325 MG TABLET 650 MG PO ×2 (03:55→16:44)
[2024-04-03] MEDS: MIDODRINE 10 MG TABLET GT ×2 (05:29→17:55)
[2024-04-03] MEDS: BUDESONIDE 0.5 MG/2 ML AMPUL.NEB INH (07:29)
[2024-04-03] MEDS: guaiFENesin Liq 100 MG/5 ML LIQUID PO ×2 (09:18→20:21)
[2024-04-03] MEDS: AMIODARONE 200 MG TABLET PO (09:19)
[2024-04-03] MEDS: ALPRAZolam 0.5 MG TABLET PO ×2 (09:19→20:20)
[2024-04-03] MEDS: FAMOTIDINE 20 MG TABLET PO ×2 (09:19→20:21)
[2024-04-03] MEDS: ASCORBIC ACID 500 MG TABLET PO ×2 (09:19→20:20)
[2024-04-03] MEDS: SENNOSIDES 8.6 MG TABLET PO ×2 (09:20→20:21)
[2024-04-03] MEDS: MULTIVITAMIN 1 TAB TABLET PO (09:20)
[2024-04-03] MEDS: HYDRO PO (11:40)
[2024-04-03] MEDS: ACET PO (11:40)
--- NOTE | 2024-04-03 21:43 | PD.SAPROG ---
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 (2) Chronic respiratory failure with hypoxia and hypercapnia: Status: Chronic (3) Ventilator dependent: Status: Chronic (4) Congestive heart failure: Status: Chronic (5) Chronic obstructive pulmonary disease, unspecified: Status: Chronic (6) Atrial fibrillation: Status: Chronic (7) Tracheostomy in place: Status: Chronic (8) Chronic anemia: Status: Chronic SUBJECTIVE Fever:: none GI:: none Shortness of Breath:: unchanged GI:: nausea Pain:: none OBJECTIVE Most recent vital signs: Last Vital Signs Temp 97.7 F 04/03/24 18:00 Pulse 77 04/03/24 18:20 Resp 20 04/03/24 18:20 BP 109/54 L 04/03/24 18:00 Pulse Ox 97 04/03/24 18:20 O2 Del Method Mechanical Ventilation 04/03/24 12:00 FiO2 35 04/03/24 18:20 Neurological:: alert Speech:: nods head, mouths words and appropriate Answers questions:: yes Respiratory:: shallow breathing and rhonchi Cardiovascular: irregular Abdomen: soft Tracheostomy:: to ventilator Feeding per:: po ASSESSMENT & PLAN Assessment: stable. Tolerating ventilatory support. Not weanable because of generalized weakness. Tolerating feeding. Prognosis is very guarded. Patient aware. Family kept aware as well. Discussed with pt this week about setting ET tube in a way so the pt can speak while on Ventilator. pt was satisfied with the settings without compromising ventilation. No new issues. Pt seems happy. Plan: Current treatment as well as ventilator settings reviewed and continued
[2024-04-04] VITALS (11 sets, daily range): BP systolic 92–127; BP diastolic 57–68; PULSE 55–87; RESP 14–24; TEMP 36–36.3; O2SAT 96–99
[2024-04-04] MEDS: MIDODRINE 10 MG TABLET GT ×2 (00:41→05:30)
[2024-04-04] MEDS: IPRATROPIUM/ALBUTEROL 3 ML AMPUL.NEB INH ×6 (03:00→22:10)
[2024-04-04] MEDS: ACET PO ×3 (03:44→12:41)
[2024-04-04] MEDS: HYDRO PO ×3 (03:44→12:41)
[2024-04-04] MEDS: ACETAMINOPHEN 325 MG TABLET 650 MG PO ×2 (07:47→23:04)
[2024-04-04] MEDS: ALPRAZolam 0.5 MG TABLET PO ×2 (09:11→20:32)
[2024-04-04] MEDS: AMIODARONE 200 MG TABLET PO (09:11)
[2024-04-04] MEDS: ASCORBIC ACID 500 MG TABLET PO ×2 (09:12→20:32)
[2024-04-04] MEDS: MULTIVITAMIN 1 TAB TABLET PO (09:14)
[2024-04-04] MEDS: SENNOSIDES 8.6 MG TABLET PO ×2 (09:14→20:33)
[2024-04-04] MEDS: FAMOTIDINE 20 MG TABLET PO ×2 (09:14→20:33)
[2024-04-04] MEDS: guaiFENesin Liq 100 MG/5 ML LIQUID PO ×2 (15:26→21:35)
[2024-04-04] MEDS: MAGNESIUM HYDROXIDE 30 ML ORAL SUSP ML GT (20:33)
[2024-04-05] VITALS (11 sets, daily range): BP systolic 92–159; BP diastolic 48–69; PULSE 61–84; RESP 14–26; TEMP 36.1–36.7; O2SAT 98–99
[2024-04-05] MEDS: MIDODRINE 10 MG TABLET GT ×3 (00:39→23:54)
[2024-04-05] MEDS: IPRATROPIUM/ALBUTEROL 3 ML AMPUL.NEB INH ×6 (02:10→22:15)
[2024-04-05] MEDS: guaiFENesin Liq 100 MG/5 ML LIQUID PO ×3 (05:08→21:48)
[2024-04-05] MEDS: ACETAMINOPHEN 325 MG TABLET 650 MG PO ×2 (05:08→18:45)
[2024-04-05] MEDS: ALPRAZolam 0.5 MG TABLET PO ×2 (08:20→20:53)
[2024-04-05] MEDS: ASCORBIC ACID 500 MG TABLET PO ×2 (08:24→20:48)
[2024-04-05] MEDS: FAMOTIDINE 20 MG TABLET PO ×2 (08:24→20:49)
[2024-04-05] MEDS: MULTIVITAMIN 1 TAB TABLET PO (08:24)
[2024-04-05] MEDS: SENNOSIDES 8.6 MG TABLET PO ×2 (08:25→20:49)
[2024-04-05] MEDS: ACET PO (08:30)
[2024-04-05] MEDS: HYDRO PO (08:30)
[2024-04-05] MEDS: BISACODYL 10 MG SUPP.RECT PR (16:29)
[2024-04-06] VITALS (12 sets, daily range): BP systolic 108–134; BP diastolic 63–71; PULSE 61–78; RESP 14–23; TEMP 36.1–36.4; O2SAT 97–99
[2024-04-06] MEDS: HYDRO PO ×3 (01:05→21:45)
[2024-04-06] MEDS: ACET PO ×3 (01:05→21:45)
[2024-04-06] MEDS: IPRATROPIUM/ALBUTEROL 3 ML AMPUL.NEB INH ×6 (02:00→22:07)
[2024-04-06] MEDS: ACETAMINOPHEN 325 MG TABLET 650 MG PO (07:30)
[2024-04-06] MEDS: guaiFENesin Liq 100 MG/5 ML LIQUID PO ×2 (07:30→18:46)
[2024-04-06] MEDS: AMIODARONE 200 MG TABLET PO (09:14)
[2024-04-06] MEDS: ALPRAZolam 0.5 MG TABLET PO ×2 (09:14→20:45)
[2024-04-06] MEDS: FAMOTIDINE 20 MG TABLET PO ×2 (09:15→20:46)
[2024-04-06] MEDS: ASCORBIC ACID 500 MG TABLET PO ×2 (09:15→20:46)
[2024-04-06] MEDS: MULTIVITAMIN 1 TAB TABLET PO (09:15)
[2024-04-06] MEDS: SENNOSIDES 8.6 MG TABLET PO ×2 (09:16→20:46)
[2024-04-06] MEDS: MIDODRINE 10 MG TABLET GT ×2 (12:54→16:59)
[2024-04-06] MEDS: BUDESONIDE 0.5 MG/2 ML AMPUL.NEB INH (19:10)
[2024-04-06] MEDS: CARBAMIDE PEROXIDE OTIC SOL 15 ML BTL 5 DROP BOTH EARS (20:46)
[2024-04-07] VITALS (13 sets, daily range): BP systolic 118–129; BP diastolic 51–67; PULSE 66–101; RESP 16–33; TEMP 36.1–36.5; O2SAT 97–100
[2024-04-07] MEDS: MIDODRINE 10 MG TABLET GT ×3 (00:02→17:30)
[2024-04-07] MEDS: ACETAMINOPHEN 325 MG TABLET 650 MG PO ×3 (01:39→18:08)
[2024-04-07] MEDS: IPRATROPIUM/ALBUTEROL 3 ML AMPUL.NEB INH ×6 (02:25→22:00)
[2024-04-07] MEDS: BUDESONIDE 0.5 MG/2 ML AMPUL.NEB INH ×2 (07:00→18:15)
[2024-04-07] MEDS: ALPRAZolam 0.5 MG TABLET PO ×2 (08:18→20:02)
[2024-04-07] MEDS: ASCORBIC ACID 500 MG TABLET PO ×2 (08:19→20:03)
[2024-04-07] MEDS: AMIODARONE 200 MG TABLET PO (08:19)
[2024-04-07] MEDS: MULTIVITAMIN 1 TAB TABLET PO (08:21)
[2024-04-07] MEDS: SENNOSIDES 8.6 MG TABLET PO ×2 (08:21→20:03)
[2024-04-07] MEDS: FAMOTIDINE 20 MG TABLET PO ×2 (08:21→20:03)
[2024-04-07] MEDS: guaiFENesin Liq 100 MG/5 ML LIQUID PO ×2 (08:22→19:25)
[2024-04-07] MEDS: ACET PO ×2 (12:41→23:42)
[2024-04-07] MEDS: HYDRO PO ×2 (12:41→23:42)
--- NOTE | 2024-04-07 22:27 | PD.SAPROG ---
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 (2) Chronic respiratory failure with hypoxia and hypercapnia: Status: Chronic (3) Ventilator dependent: Status: Chronic (4) Congestive heart failure: Status: Chronic (5) Chronic obstructive pulmonary disease, unspecified: Status: Chronic (6) Atrial fibrillation: Status: Chronic (7) Tracheostomy in place: Status: Chronic (8) Chronic anemia: Status: Chronic SUBJECTIVE Fever:: none GI:: none Shortness of Breath:: unchanged GI:: nausea Pain:: none OBJECTIVE Most recent vital signs: Last Vital Signs Temp 97 F 04/07/24 17:02 Pulse 97 04/07/24 18:15 Resp 28 H 04/07/24 18:15 BP 118/65 04/07/24 17:02 Pulse Ox 99 04/07/24 18:15 O2 Del Method Mechanical Ventilation 04/05/24 17:55 FiO2 35 04/07/24 18:15 Neurological:: alert Speech:: nods head, mouths words and appropriate Answers questions:: yes Respiratory:: shallow breathing and rhonchi Cardiovascular: irregular Abdomen: soft Tracheostomy:: to ventilator Feeding per:: po ASSESSMENT & PLAN Assessment: stable. Tolerating ventilatory support. Not weanable because of generalized weakness. Tolerating feeding. Prognosis is very guarded. Patient aware. Family kept aware as well. Discussed with pt this week about setting ET tube in a way so the pt can speak while on Ventilator. pt was satisfied with the settings without compromising ventilation. No new issues. Pt seems happy. Plan: Current treatment as well as ventilator settings reviewed and continued
[2024-04-08] VITALS (13 sets, daily range): BP systolic 111–131; BP diastolic 58–70; PULSE 66–87; RESP 16–24; TEMP 36.1–36.6; O2SAT 96–100
[2024-04-08] MEDS: MIDODRINE 10 MG TABLET GT ×2 (00:24→11:00)
[2024-04-08] MEDS: IPRATROPIUM/ALBUTEROL 3 ML AMPUL.NEB INH ×6 (02:00→22:20)
[2024-04-08] MEDS: MAGNESIUM HYDROXIDE 30 ML ORAL SUSP ML GT (05:01)
[2024-04-08] MEDS: BUDESONIDE 0.5 MG/2 ML AMPUL.NEB INH ×2 (07:39→18:05)
[2024-04-08] MEDS: AMIODARONE 200 MG TABLET PO (09:14)
[2024-04-08] MEDS: FAMOTIDINE 20 MG TABLET PO ×2 (09:14→20:02)
[2024-04-08] MEDS: ALPRAZolam 0.5 MG TABLET PO ×2 (09:14→20:01)
[2024-04-08] MEDS: ASCORBIC ACID 500 MG TABLET PO ×2 (09:14→20:01)
[2024-04-08] MEDS: MULTIVITAMIN 1 TAB TABLET PO (09:15)
[2024-04-08] MEDS: SENNOSIDES 8.6 MG TABLET PO ×2 (09:15→20:02)
[2024-04-08] MEDS: guaiFENesin Liq 100 MG/5 ML LIQUID PO ×3 (10:29→23:35)
[2024-04-08] MEDS: HYDRO PO ×2 (11:00→19:30)
[2024-04-08] MEDS: ACET PO ×2 (11:00→19:30)
--- NOTE | 2024-04-08 17:10 | PC.NURSE ---
Patient was given a full bed bath at 1635, had attempted all day and she was finally accepting. Tx to sacrum done, no further skin issues noted, she was noted SOB at times, emotional support and reassurance provided. Call light within reach, bed in low position.
[2024-04-08] MEDS: ACETAMINOPHEN 325 MG TABLET 650 MG PO (23:35)
[2024-04-09] VITALS (13 sets, daily range): BP systolic 111–147; BP diastolic 63–76; PULSE 59–89; RESP 16–23; TEMP 36.1–36.4; O2SAT 98–100
[2024-04-09] MEDS: IPRATROPIUM/ALBUTEROL 3 ML AMPUL.NEB INH ×6 (02:30→22:35)
[2024-04-09] MEDS: ACET PO ×2 (03:35→16:48)
[2024-04-09] MEDS: HYDRO PO ×2 (03:35→16:48)
[2024-04-09] MEDS: MIDODRINE 10 MG TABLET GT ×2 (05:24→11:49)
[2024-04-09] MEDS: BUDESONIDE 0.5 MG/2 ML AMPUL.NEB INH ×2 (06:18→18:30)
[2024-04-09] MEDS: ASCORBIC ACID 500 MG TABLET PO ×2 (08:57→21:38)
[2024-04-09] MEDS: SENNOSIDES 8.6 MG TABLET PO ×2 (08:57→21:39)
[2024-04-09] MEDS: FAMOTIDINE 20 MG TABLET PO ×2 (08:57→21:38)
[2024-04-09] MEDS: MULTIVITAMIN 1 TAB TABLET PO (08:57)
[2024-04-09] MEDS: ALPRAZolam 0.5 MG TABLET PO ×2 (08:59→21:38)
[2024-04-09] MEDS: ACETAMINOPHEN 325 MG TABLET 650 MG PO ×2 (09:06→23:50)
--- NOTE | 2024-04-09 10:34 | PC.NURSE ---
Resident complained of burning on urination, afebrile. Resident with baker catheter, patent and draining via gravity bag with a yellow colored urine and secured to a leg band to keep in place. Called and notified Dr Salazar with order received to do urinalysis with C & S.
[2024-04-09 13:01] LABS: Collection Type, Urine Catheter
[2024-04-09 13:24] LABS: Bacteria,Urine 1+; Bilirubin,Urine Negative (Negative); Blood,Urine Negative (Negative); Clarity,Urine Clear (Clear/Hazy); Color,Urine Yellow (Lt Yel-Yel); Glucose, Urine Negative (Negative); Ketones,Urine Negative (Negative); Leukocyte Esterase,Urine Positive (Negative); Nitrite,Urine Positive (Negative); Protein,Urine Trace (Neg - Trace); RBC,Urine 6 /hpf (0-3); Specific Gravity,Urine 1.016 (1.001-1.035); Squamous Epithelial Cell,Urine < 1 /hpf (0-5); Urobilinogen,Urine Negative mg/dL (0.0-1.0); WBC,Urine 17 /hpf (0-5)
[2024-04-09] MEDS: guaiFENesin Liq 100 MG/5 ML LIQUID PO ×2 (14:49→21:42)
--- NOTE | 2024-04-09 15:42 | PC.SS ---
Room visit: Resident is here on ventilator with trach in place and GT for medication and nutrition. Resident is able to make her needs known with clear speech, she is her own decision maker she has POA in place with her son Francisco Javier Blakely as her proxy. Resident is seen laying in bed well groomed with call light properly placed with no signs of distress. Resident will remain in current care as she has no changes in care or condition, staff will continue to meet all subacute care needs.
--- NOTE | 2024-04-09 17:26 | PC.NURSE ---
Called Dr paz and verbally reported resident's urinalysis result, no ATB at this time. Resident remains afebrile. Order received to start on Pyridium
[2024-04-09] MEDS: PHENAZOPYRIDINE 100 MG TABLET 200 MG PO (21:39)
--- NOTE | 2024-04-09 23:16 | PC.NURSE ---
First dose of pyridium 200mg pulled from [facility], resident encourage to drink plenty of water, resident in room resting, call light within reach, no c/o pain or discomfort at this time.
[2024-04-10] VITALS (12 sets, daily range): BP systolic 95–116; BP diastolic 54–67; PULSE 54–81; RESP 14–23; TEMP 36.2–36.7; O2SAT 97–100
[2024-04-10] MEDS: MIDODRINE 10 MG TABLET GT ×4 (00:43→17:42)
[2024-04-10] MEDS: HYDRO PO ×2 (01:17→23:33)
[2024-04-10] MEDS: ACET PO ×2 (01:17→23:33)
[2024-04-10] MEDS: IPRATROPIUM/ALBUTEROL 3 ML AMPUL.NEB INH ×6 (02:20→22:32)
[2024-04-10] MEDS: BUDESONIDE 0.5 MG/2 ML AMPUL.NEB INH ×2 (06:17→19:20)
[2024-04-10] MEDS: ACETAMINOPHEN 325 MG TABLET 650 MG PO (07:27)
[2024-04-10] MEDS: ALPRAZolam 0.5 MG TABLET PO ×2 (08:01→20:00)
[2024-04-10] MEDS: PHENAZOPYRIDINE 100 MG TABLET 200 MG PO ×2 (08:02→20:00)
[2024-04-10] MEDS: FAMOTIDINE 20 MG TABLET PO ×2 (08:02→20:00)
[2024-04-10] MEDS: SENNOSIDES 8.6 MG TABLET PO ×2 (08:02→20:00)
[2024-04-10] MEDS: ASCORBIC ACID 500 MG TABLET PO ×2 (08:02→20:00)
[2024-04-10] MEDS: MULTIVITAMIN 1 TAB TABLET PO (08:02)
[2024-04-10] MEDS: AMIODARONE 200 MG TABLET PO (08:02)
[2024-04-10] MEDS: guaiFENesin Liq 100 MG/5 ML LIQUID PO (22:21)
[2024-04-11] VITALS (10 sets, daily range): BP systolic 113–131; BP diastolic 56–70; PULSE 59–87; RESP 15–25; TEMP 36.4–36.9; O2SAT 96–100
[2024-04-11] MEDS: IPRATROPIUM/ALBUTEROL 3 ML AMPUL.NEB INH ×5 (02:24→22:13)
[2024-04-11] MEDS: guaiFENesin Liq 100 MG/5 ML LIQUID PO ×3 (03:38→20:09)
[2024-04-11] MEDS: MIDODRINE 10 MG TABLET GT ×2 (05:10→17:13)
[2024-04-11] MEDS: BUDESONIDE 0.5 MG/2 ML AMPUL.NEB INH ×2 (06:17→18:00)
[2024-04-11] MEDS: AMIODARONE 200 MG TABLET PO (08:45)
[2024-04-11] MEDS: ALPRAZolam 0.5 MG TABLET PO ×2 (08:45→20:08)
[2024-04-11] MEDS: FAMOTIDINE 20 MG TABLET PO ×2 (08:46→20:08)
[2024-04-11] MEDS: ASCORBIC ACID 500 MG TABLET PO ×2 (08:46→20:08)
[2024-04-11] MEDS: MULTIVITAMIN 1 TAB TABLET PO (08:46)
[2024-04-11] MEDS: PHENAZOPYRIDINE 100 MG TABLET 200 MG PO ×2 (08:46→20:09)
[2024-04-11] MEDS: SENNOSIDES 8.6 MG TABLET PO ×2 (08:46→20:09)
[2024-04-11] MEDS: HYDRO PO ×3 (11:40→23:40)
[2024-04-11] MEDS: ACET PO ×3 (11:40→23:40)
--- NOTE | 2024-04-11 13:25 | PD.SAPROG ---
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 (2) Chronic respiratory failure with hypoxia and hypercapnia: Status: Chronic (3) Ventilator dependent: Status: Chronic (4) Congestive heart failure: Status: Chronic (5) Chronic obstructive pulmonary disease, unspecified: Status: Chronic (6) Atrial fibrillation: Status: Chronic (7) Tracheostomy in place: Status: Chronic (8) Chronic anemia: Status: Chronic SUBJECTIVE Fever:: none GI:: none Shortness of Breath:: unchanged GI:: nausea Pain:: none OBJECTIVE Most recent vital signs: Last Vital Signs Temp 98.0 F 04/15/24 12:00 Pulse 61 04/15/24 14:30 Resp 18 04/15/24 14:30 BP 113/66 04/15/24 12:00 Pulse Ox 98 04/15/24 14:30 O2 Del Method Mechanical Ventilation 04/15/24 06:00 FiO2 35 04/15/24 14:30 Neurological:: alert Speech:: nods head, mouths words and appropriate Answers questions:: yes Respiratory:: shallow breathing and rhonchi Cardiovascular: irregular Abdomen: soft Tracheostomy:: to ventilator Feeding per:: po ASSESSMENT & PLAN Assessment: stable. Tolerating ventilatory support. Not weanable because of generalized weakness. Tolerating feeding. Prognosis is very guarded. Patient aware. Family kept aware as well. Discussed with pt this week about setting ET tube in a way so the pt can speak while on Ventilator. pt was satisfied with the settings without compromising ventilation. No new issues. Pt seems happy. Plan: Current treatment as well as ventilator settings reviewed and continued
[2024-04-12] VITALS (13 sets, daily range): BP systolic 113–135; BP diastolic 55–74; PULSE 60–75; RESP 15–26; TEMP 36.1–36.4; O2SAT 96–100
[2024-04-12] MEDS: IPRATROPIUM/ALBUTEROL 3 ML AMPUL.NEB INH ×6 (02:50→22:22)
[2024-04-12] MEDS: ACETAMINOPHEN 325 MG TABLET 650 MG PO (05:27)
[2024-04-12] MEDS: BUDESONIDE 0.5 MG/2 ML AMPUL.NEB INH ×2 (07:27→18:10)
[2024-04-12] MEDS: AMIODARONE 200 MG TABLET PO (09:22)
[2024-04-12] MEDS: ASCORBIC ACID 500 MG TABLET PO ×2 (09:22→21:06)
[2024-04-12] MEDS: ALPRAZolam 0.5 MG TABLET PO ×2 (09:22→21:06)
[2024-04-12] MEDS: FAMOTIDINE 20 MG TABLET PO ×2 (09:22→21:06)
[2024-04-12] MEDS: MULTIVITAMIN 1 TAB TABLET PO (09:23)
[2024-04-12] MEDS: PHENAZOPYRIDINE 100 MG TABLET 200 MG PO (09:24)
[2024-04-12] MEDS: SENNOSIDES 8.6 MG TABLET PO ×2 (09:24→21:07)
[2024-04-12] MEDS: guaiFENesin Liq 100 MG/5 ML LIQUID PO ×2 (09:26→17:38)
[2024-04-12] MEDS: MIDODRINE 10 MG TABLET GT ×2 (11:59→17:38)
[2024-04-12] MEDS: HYDRO PO (19:43)
[2024-04-12] MEDS: ACET PO (19:43)
[2024-04-13] VITALS (14 sets, daily range): BP systolic 107–136; BP diastolic 56–74; PULSE 54–76; RESP 15–25; TEMP 36.1–36.4; O2SAT 95–99
[2024-04-13] MEDS: IPRATROPIUM/ALBUTEROL 3 ML AMPUL.NEB INH ×6 (02:10→22:15)
[2024-04-13] MEDS: guaiFENesin Liq 100 MG/5 ML LIQUID PO ×2 (03:31→20:02)
[2024-04-13] MEDS: ACETAMINOPHEN 325 MG TABLET 650 MG PO (05:28)
[2024-04-13] MEDS: MIDODRINE 10 MG TABLET GT ×2 (05:53→11:45)
[2024-04-13] MEDS: BUDESONIDE 0.5 MG/2 ML AMPUL.NEB INH ×2 (07:05→18:20)
[2024-04-13] MEDS: AMIODARONE 200 MG TABLET PO (08:10)
[2024-04-13] MEDS: ASCORBIC ACID 500 MG TABLET PO ×2 (08:11→20:01)
[2024-04-13] MEDS: FAMOTIDINE 20 MG TABLET PO ×2 (08:11→20:02)
[2024-04-13] MEDS: MULTIVITAMIN 1 TAB TABLET PO (08:11)
[2024-04-13] MEDS: SENNOSIDES 8.6 MG TABLET PO ×2 (08:11→20:02)
[2024-04-13] MEDS: ALPRAZolam 0.5 MG TABLET PO ×2 (09:29→20:01)
[2024-04-13] MEDS: ACET PO (13:46)
[2024-04-13] MEDS: HYDRO PO (13:46)
--- NOTE | 2024-04-13 15:52 | PC.SS ---
IDT note: resident is alert and oriented, able to make decisions for self. RP received invite in the mail but unable to attend meeting. RP and resident made aware of any updates and changes in care and condition. Medications reviewed, resident to remain in current care as she has no changes in care or condition.
[2024-04-14] VITALS (10 sets, daily range): BP systolic 94–116; BP diastolic 52–67; PULSE 58–72; RESP 15–21; TEMP 36–36.6; O2SAT 97–100
[2024-04-14] MEDS: ACETAMINOPHEN 325 MG TABLET 650 MG PO (00:28)
[2024-04-14] MEDS: MIDODRINE 10 MG TABLET PO ×4 (00:29→17:15)
[2024-04-14] MEDS: MAGNESIUM HYDROXIDE 30 ML ORAL SUSP ML PO (01:13)
[2024-04-14] MEDS: IPRATROPIUM/ALBUTEROL 3 ML AMPUL.NEB INH ×5 (02:10→22:40)
[2024-04-14] MEDS: HYDRO PO ×2 (04:10→15:52)
[2024-04-14] MEDS: ACET PO ×2 (04:10→15:52)
[2024-04-14] MEDS: BUDESONIDE 0.5 MG/2 ML AMPUL.NEB INH ×2 (06:21→20:22)
[2024-04-14] MEDS: ALPRAZolam 0.5 MG TABLET PO ×2 (09:33→20:26)
[2024-04-14] MEDS: ASCORBIC ACID 500 MG TABLET PO ×2 (09:34→20:26)
[2024-04-14] MEDS: FAMOTIDINE 20 MG TABLET PO ×2 (09:34→20:27)
[2024-04-14] MEDS: MULTIVITAMIN 1 TAB TABLET PO (09:34)
[2024-04-14] MEDS: AMIODARONE 200 MG TABLET PO (09:34)
[2024-04-14] MEDS: SENNOSIDES 8.6 MG TABLET PO ×2 (09:35→20:27)
[2024-04-14] MEDS: guaiFENesin Liq 100 MG/5 ML LIQUID PO (09:36)
--- NOTE | 2024-04-14 18:15 | PC.NURSE ---
Resident refused Dulcolax supp x3 attempts. RN made aware.
--- NOTE | 2024-04-14 21:00 | PC.NURSE ---
LAST BM 04/10 @ 1400. RESIDENT HAD REFUSED DULCOLAX SUPPOSITORY DURING DAY SHIFT STATING SHE ALREADY HAD A BM. RESIDENT OFFERED THE DULCOLAX AGAIN BUT REFUSED STATING SHE HAD BM 04/13 ON DAY SHIFT. RESIDENT ALERT, ORIENTED.
[2024-04-15] VITALS (12 sets, daily range): BP systolic 100–147; BP diastolic 54–80; PULSE 51–80; RESP 15–22; TEMP 36.4–36.7; O2SAT 97–99
[2024-04-15] MEDS: guaiFENesin Liq 100 MG/5 ML LIQUID PO ×3 (00:15→17:32)
[2024-04-15] MEDS: ACETAMINOPHEN 325 MG TABLET 650 MG PO (00:15)
[2024-04-15] MEDS: ACET PO ×2 (01:20→20:08)
[2024-04-15] MEDS: HYDRO PO ×2 (01:20→20:08)
[2024-04-15] MEDS: IPRATROPIUM/ALBUTEROL 3 ML AMPUL.NEB INH ×6 (02:00→22:42)
[2024-04-15] MEDS: MIDODRINE 10 MG TABLET PO ×2 (05:11→12:02)
[2024-04-15] MEDS: ASCORBIC ACID 500 MG TABLET PO ×2 (09:50→20:08)
[2024-04-15] MEDS: MULTIVITAMIN 1 TAB TABLET PO (09:50)
[2024-04-15] MEDS: FAMOTIDINE 20 MG TABLET PO ×2 (09:50→20:09)
[2024-04-15] MEDS: SENNOSIDES 8.6 MG TABLET PO ×2 (09:50→20:09)
[2024-04-15] MEDS: ALPRAZolam 0.5 MG TABLET PO ×2 (09:51→20:08)
--- NOTE | 2024-04-15 17:22 | PD.SAPROG ---
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 (2) Chronic respiratory failure with hypoxia and hypercapnia: Status: Chronic (3) Ventilator dependent: Status: Chronic (4) Congestive heart failure: Status: Chronic (5) Chronic obstructive pulmonary disease, unspecified: Status: Chronic (6) Atrial fibrillation: Status: Chronic (7) Tracheostomy in place: Status: Chronic (8) Chronic anemia: Status: Chronic SUBJECTIVE Fever:: none GI:: none Shortness of Breath:: unchanged GI:: nausea Pain:: none OBJECTIVE Most recent vital signs: Last Vital Signs Temp 98.0 F 04/15/24 12:00 Pulse 61 04/15/24 14:30 Resp 18 04/15/24 14:30 BP 113/66 04/15/24 12:00 Pulse Ox 98 04/15/24 14:30 O2 Del Method Mechanical Ventilation 04/15/24 06:00 FiO2 35 04/15/24 14:30 Neurological:: alert Speech:: nods head, mouths words and appropriate Answers questions:: yes Respiratory:: shallow breathing and rhonchi Cardiovascular: irregular Abdomen: soft Tracheostomy:: to ventilator Feeding per:: po ASSESSMENT & PLAN Assessment: stable. Tolerating ventilatory support. Not weanable because of generalized weakness. Tolerating feeding. Prognosis is very guarded. Patient aware. Family kept aware as well. Discussed with pt this week about setting ET tube in a way so the pt can speak while on Ventilator. pt was satisfied with the settings without compromising ventilation.She requested anti acid for stomach discomfort and was given prn liquid PO. No new issues. Pt seems happy. Plan: Current treatment as well as ventilator settings reviewed and continued
[2024-04-15] MEDS: BUDESONIDE 0.5 MG/2 ML AMPUL.NEB INH (18:12)
[2024-04-16] VITALS (13 sets, daily range): BP systolic 106–148; BP diastolic 54–78; PULSE 53–75; RESP 16–21; TEMP 35.6–36.7; O2SAT 98–100
[2024-04-16] MEDS: MIDODRINE 10 MG TABLET PO ×3 (00:46→17:52)
[2024-04-16] MEDS: IPRATROPIUM/ALBUTEROL 3 ML AMPUL.NEB INH ×6 (02:00→22:35)
[2024-04-16] MEDS: ACETAMINOPHEN 325 MG TABLET 650 MG PO ×3 (04:00→20:08)
[2024-04-16] MEDS: ALPRAZolam 0.5 MG TABLET PO ×2 (08:18→20:08)
[2024-04-16] MEDS: SENNOSIDES 8.6 MG TABLET PO ×2 (08:19→20:09)
[2024-04-16] MEDS: MULTIVITAMIN 1 TAB TABLET PO (08:19)
[2024-04-16] MEDS: ASCORBIC ACID 500 MG TABLET PO ×2 (08:19→20:09)
[2024-04-16] MEDS: FAMOTIDINE 20 MG TABLET PO ×2 (08:19→20:09)
[2024-04-16] MEDS: guaiFENesin Liq 100 MG/5 ML LIQUID PO ×2 (08:21→20:09)
[2024-04-16] MEDS: MAG HYDROX/ALUMINUM HYD/SIMETH 355 ML BTL 30 ML PO (08:23)
[2024-04-16] MEDS: ACET PO (14:36)
[2024-04-16] MEDS: HYDRO PO (14:36)
[2024-04-17] VITALS (12 sets, daily range): BP systolic 115–156; BP diastolic 63–80; PULSE 61–94; RESP 16–22; TEMP 36.3–36.6; O2SAT 97–100
[2024-04-17] MEDS: MIDODRINE 10 MG TABLET PO ×3 (00:32→17:09)
[2024-04-17] MEDS: ACET PO ×2 (01:30→14:27)
[2024-04-17] MEDS: HYDRO PO ×2 (01:30→14:27)
[2024-04-17] MEDS: IPRATROPIUM/ALBUTEROL 3 ML AMPUL.NEB INH ×6 (02:50→22:30)
[2024-04-17] MEDS: ACETAMINOPHEN 325 MG TABLET 650 MG PO ×2 (05:37→20:50)
[2024-04-17] MEDS: ALPRAZolam 0.5 MG TABLET PO ×2 (09:00→20:48)
[2024-04-17] MEDS: AMIODARONE 200 MG TABLET PO (09:44)
[2024-04-17] MEDS: FAMOTIDINE 20 MG TABLET PO ×2 (09:45→20:49)
[2024-04-17] MEDS: SENNOSIDES 8.6 MG TABLET PO ×2 (09:45→20:49)
[2024-04-17] MEDS: MULTIVITAMIN 1 TAB TABLET PO (09:45)
[2024-04-17] MEDS: ASCORBIC ACID 500 MG TABLET PO ×2 (09:45→20:48)
[2024-04-17] MEDS: guaiFENesin Liq 100 MG/5 ML LIQUID PO ×2 (12:35→20:50)
[2024-04-17] MEDS: BUDESONIDE 0.5 MG/2 ML AMPUL.NEB INH (18:20)
[2024-04-18] VITALS (12 sets, daily range): BP systolic 98–135; BP diastolic 56–70; PULSE 55–85; RESP 14–26; TEMP 36.2–36.6; O2SAT 95–99
[2024-04-18] MEDS: IPRATROPIUM/ALBUTEROL 3 ML AMPUL.NEB INH ×6 (02:00→22:40)
[2024-04-18] MEDS: guaiFENesin Liq 100 MG/5 ML LIQUID PO ×3 (05:07→18:09)
[2024-04-18] MEDS: MIDODRINE 10 MG TABLET PO ×3 (05:07→17:28)
[2024-04-18] MEDS: BUDESONIDE 0.5 MG/2 ML AMPUL.NEB INH ×2 (06:00→18:12)
[2024-04-18] MEDS: ALPRAZolam 0.5 MG TABLET PO ×2 (08:56→20:27)
[2024-04-18] MEDS: FAMOTIDINE 20 MG TABLET PO ×2 (09:00→20:28)
[2024-04-18] MEDS: ASCORBIC ACID 500 MG TABLET PO ×2 (09:00→20:27)
[2024-04-18] MEDS: SENNOSIDES 8.6 MG TABLET PO ×2 (09:01→20:28)
[2024-04-18] MEDS: MULTIVITAMIN 1 TAB TABLET PO (09:01)
[2024-04-18] MEDS: HYDRO PO (11:30)
[2024-04-18] MEDS: ACET PO (11:30)
[2024-04-18] MEDS: ACETAMINOPHEN 325 MG TABLET 650 MG PO (20:28)
[2024-04-19] VITALS (12 sets, daily range): BP systolic 109–151; BP diastolic 53–69; PULSE 59–102; RESP 14–23; TEMP 36.1–36.7; O2SAT 98–99
[2024-04-19] MEDS: guaiFENesin Liq 100 MG/5 ML LIQUID PO ×4 (00:21→23:57)
[2024-04-19] MEDS: MIDODRINE 10 MG TABLET PO ×3 (00:21→17:34)
[2024-04-19] MEDS: IPRATROPIUM/ALBUTEROL 3 ML AMPUL.NEB INH ×6 (02:16→21:44)
[2024-04-19] MEDS: ACET PO ×2 (04:45→16:45)
[2024-04-19] MEDS: HYDRO PO ×2 (04:45→16:45)
[2024-04-19] MEDS: ALPRAZolam 0.5 MG TABLET PO ×2 (09:40→20:23)
[2024-04-19] MEDS: ASCORBIC ACID 500 MG TABLET PO ×2 (09:41→20:23)
[2024-04-19] MEDS: MULTIVITAMIN 1 TAB TABLET PO (09:42)
[2024-04-19] MEDS: FAMOTIDINE 20 MG TABLET PO ×2 (09:42→20:24)
[2024-04-19] MEDS: SENNOSIDES 8.6 MG TABLET PO ×2 (09:42→20:24)
[2024-04-19] MEDS: ACETAMINOPHEN 325 MG TABLET 650 MG PO (14:15)
[2024-04-19] MEDS: BUDESONIDE 0.5 MG/2 ML AMPUL.NEB INH (18:15)
--- NOTE | 2024-04-19 22:19 | PD.SAPROG ---
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 (2) Chronic respiratory failure with hypoxia and hypercapnia: Status: Chronic (3) Ventilator dependent: Status: Chronic (4) Congestive heart failure: Status: Chronic (5) Chronic obstructive pulmonary disease, unspecified: Status: Chronic (6) Atrial fibrillation: Status: Chronic (7) Tracheostomy in place: Status: Chronic (8) Chronic anemia: Status: Chronic SUBJECTIVE Fever:: none GI:: none Shortness of Breath:: unchanged GI:: nausea Pain:: none OBJECTIVE Most recent vital signs: Last Vital Signs Temp 98.1 F 04/19/24 18:00 Pulse 98 04/19/24 21:44 Resp 16 04/19/24 21:44 BP 151/69 H 04/19/24 18:00 Pulse Ox 99 04/19/24 21:44 O2 Del Method Mechanical Ventilation 04/18/24 05:53 FiO2 35 04/19/24 21:44 Neurological:: alert Speech:: nods head, mouths words and appropriate Answers questions:: yes Respiratory:: shallow breathing and rhonchi Cardiovascular: irregular Abdomen: soft Tracheostomy:: to ventilator Feeding per:: po ASSESSMENT & PLAN Assessment: stable. Tolerating ventilatory support. Not weanable because of generalized weakness. Tolerating feeding. Prognosis is very guarded. Patient aware. Family kept aware as well. Discussed with pt this week about setting ET tube in a way so the pt can speak while on Ventilator. pt was satisfied with the settings without compromising ventilation.She requested anti acid for stomach discomfort and was given prn liquid PO. No new issues. Pt seems happy. Plan: Current treatment as well as ventilator settings reviewed and continued
[2024-04-20] VITALS (12 sets, daily range): BP systolic 121–132; BP diastolic 72–85; PULSE 61–82; RESP 14–23; TEMP 36–36.6; O2SAT 96–99
[2024-04-20] MEDS: HYDRO PO ×2 (01:04→18:08)
[2024-04-20] MEDS: ACET PO ×2 (01:04→18:08)
[2024-04-20] MEDS: IPRATROPIUM/ALBUTEROL 3 ML AMPUL.NEB INH ×6 (02:32→22:10)
[2024-04-20] MEDS: MIDODRINE 10 MG TABLET PO (05:19)
[2024-04-20] MEDS: BUDESONIDE 0.5 MG/2 ML AMPUL.NEB INH ×3 (07:25→18:20)
[2024-04-20] MEDS: ALPRAZolam 0.5 MG TABLET PO ×2 (08:28→20:16)
[2024-04-20] MEDS: AMIODARONE 200 MG TABLET PO (08:29)
[2024-04-20] MEDS: FAMOTIDINE 20 MG TABLET PO ×2 (08:29→20:15)
[2024-04-20] MEDS: ASCORBIC ACID 500 MG TABLET PO ×2 (08:29→20:15)
[2024-04-20] MEDS: MULTIVITAMIN 1 TAB TABLET PO (08:30)
[2024-04-20] MEDS: SENNOSIDES 8.6 MG TABLET PO ×2 (08:30→20:15)
[2024-04-20] MEDS: ACETAMINOPHEN 325 MG TABLET 650 MG PO ×2 (10:38→23:59)
[2024-04-20] MEDS: guaiFENesin Liq 100 MG/5 ML LIQUID PO (15:28)
[2024-04-20] MEDS: MAG HYDROX/ALUMINUM HYD/SIMETH 355 ML BTL 30 ML PO (18:08)
[2024-04-20] MEDS: MAGNESIUM HYDROXIDE 30 ML ORAL SUSP ML PO (23:59)
[2024-04-21] VITALS (12 sets, daily range): BP systolic 100–130; BP diastolic 59–76; PULSE 62–91; RESP 15–26; TEMP 36.3–37.2; O2SAT 96–100
[2024-04-21] MEDS: guaiFENesin Liq 100 MG/5 ML LIQUID PO
[2024-04-21] MEDS: IPRATROPIUM/ALBUTEROL 3 ML AMPUL.NEB INH ×6 (02:10→22:05)
[2024-04-21] MEDS: MIDODRINE 10 MG TABLET PO ×3 (05:30→23:20)
[2024-04-21] MEDS: ACET PO ×2 (06:02→17:23)
[2024-04-21] MEDS: HYDRO PO ×2 (06:02→17:23)
[2024-04-21] MEDS: BUDESONIDE 0.5 MG/2 ML AMPUL.NEB INH ×2 (07:05→18:10)
[2024-04-21] MEDS: ASCORBIC ACID 500 MG TABLET PO ×2 (09:20→20:02)
[2024-04-21] MEDS: AMIODARONE 200 MG TABLET PO (09:20)
[2024-04-21] MEDS: ALPRAZolam 0.5 MG TABLET PO ×2 (09:20→20:01)
[2024-04-21] MEDS: FAMOTIDINE 20 MG TABLET PO ×2 (09:21→20:02)
[2024-04-21] MEDS: SENNOSIDES 8.6 MG TABLET PO ×2 (09:21→20:02)
[2024-04-21] MEDS: MULTIVITAMIN 1 TAB TABLET PO (09:21)
[2024-04-21] MEDS: ACETAMINOPHEN 325 MG TABLET 650 MG PO ×2 (11:47→19:56)
[2024-04-21] MEDS: BISACODYL 10 MG SUPP.RECT PR (14:15)
[2024-04-22] VITALS (12 sets, daily range): BP systolic 99–159; BP diastolic 56–71; PULSE 64–86; RESP 15–23; TEMP 36.3–37.1; O2SAT 96–100
[2024-04-22] MEDS: HYDRO PO ×2 (01:31→15:53)
[2024-04-22] MEDS: ACET PO ×2 (01:31→15:53)
[2024-04-22] MEDS: IPRATROPIUM/ALBUTEROL 3 ML AMPUL.NEB INH ×6 (02:15→22:20)
[2024-04-22] MEDS: MIDODRINE 10 MG TABLET PO ×2 (05:31→11:28)
[2024-04-22] MEDS: BUDESONIDE 0.5 MG/2 ML AMPUL.NEB INH ×2 (06:37→17:43)
[2024-04-22] MEDS: AMIODARONE 200 MG TABLET PO (09:31)
[2024-04-22] MEDS: ALPRAZolam 0.5 MG TABLET PO ×2 (09:31→20:39)
[2024-04-22] MEDS: MULTIVITAMIN 1 TAB TABLET PO (09:32)
[2024-04-22] MEDS: FAMOTIDINE 20 MG TABLET PO ×2 (09:32→20:34)
[2024-04-22] MEDS: SENNOSIDES 8.6 MG TABLET PO ×2 (09:32→20:35)
[2024-04-22] MEDS: ASCORBIC ACID 500 MG TABLET PO ×2 (09:32→20:34)
[2024-04-22] MEDS: ACETAMINOPHEN 325 MG TABLET 650 MG PO (19:39)
[2024-04-22] MEDS: CARBAMIDE PEROXIDE OTIC SOL 15 ML BTL 5 DROP BOTH EARS (21:00)
[2024-04-22] MEDS: guaiFENesin Liq 100 MG/5 ML LIQUID PO (23:50)
[2024-04-23] VITALS (13 sets, daily range): BP systolic 95–148; BP diastolic 55–70; PULSE 62–96; RESP 15–27; TEMP 36.2–36.4; O2SAT 94–100
[2024-04-23] MEDS: IPRATROPIUM/ALBUTEROL 3 ML AMPUL.NEB INH ×6 (02:08→22:10)
[2024-04-23] MEDS: HYDRO PO ×2 (04:35→12:45)
[2024-04-23] MEDS: ACET PO ×2 (04:35→12:45)
[2024-04-23] MEDS: MIDODRINE 10 MG TABLET PO ×3 (05:43→23:40)
[2024-04-23] MEDS: BUDESONIDE 0.5 MG/2 ML AMPUL.NEB INH ×2 (06:06→18:05)
[2024-04-23] MEDS: ALPRAZolam 0.5 MG TABLET PO ×2 (09:21→20:48)
[2024-04-23] MEDS: SENNOSIDES 8.6 MG TABLET PO ×2 (09:22→20:50)
[2024-04-23] MEDS: FAMOTIDINE 20 MG TABLET PO ×2 (09:22→20:49)
[2024-04-23] MEDS: MULTIVITAMIN 1 TAB TABLET PO (09:22)
[2024-04-23] MEDS: ASCORBIC ACID 500 MG TABLET PO ×2 (09:22→20:49)
--- NOTE | 2024-04-23 13:25 | PD.SAPROG ---
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 (2) Chronic respiratory failure with hypoxia and hypercapnia: Status: Chronic (3) Ventilator dependent: Status: Chronic (4) Congestive heart failure: Status: Chronic (5) Chronic obstructive pulmonary disease, unspecified: Status: Chronic (6) Atrial fibrillation: Status: Chronic (7) Tracheostomy in place: Status: Chronic (8) Chronic anemia: Status: Chronic SUBJECTIVE Fever:: none GI:: none Shortness of Breath:: unchanged GI:: nausea Pain:: none OBJECTIVE Most recent vital signs: Last Vital Signs Temp 96.8 F 04/25/24 05:04 Pulse 64 04/25/24 09:03 Resp 16 04/25/24 06:10 BP 110/68 04/25/24 09:03 Pulse Ox 99 04/25/24 06:10 O2 Del Method Humidified Nasal Cannula 04/24/24 17:37 FiO2 35 04/25/24 06:10 Neurological:: alert Speech:: nods head, mouths words and appropriate Answers questions:: yes Respiratory:: shallow breathing and rhonchi Cardiovascular: irregular Abdomen: soft Tracheostomy:: to ventilator Feeding per:: po ASSESSMENT & PLAN Assessment: stable. Tolerating ventilatory support. Not weanable because of generalized weakness. Tolerating feeding. Prognosis is very guarded. Patient aware. Family kept aware as well. Discussed with pt this week about setting ET tube in a way so the pt can speak while on Ventilator. pt was satisfied with the settings without compromising ventilation.She requested anti acid for stomach discomfort and was given prn liquid PO. No new issues. Pt seems happy. Plan: Current treatment as well as ventilator settings reviewed and continued
[2024-04-23] MEDS: guaiFENesin Liq 100 MG/5 ML LIQUID PO (17:00)
[2024-04-23] MEDS: ACETAMINOPHEN 325 MG TABLET 650 MG PO (23:42)
[2024-04-24] VITALS (13 sets, daily range): BP systolic 110–126; BP diastolic 55–68; PULSE 61–76; RESP 15–24; TEMP 36.1–36.8; O2SAT 96–100
[2024-04-24] MEDS: IPRATROPIUM/ALBUTEROL 3 ML AMPUL.NEB INH ×6 (02:00→22:32)
[2024-04-24] MEDS: guaiFENesin Liq 100 MG/5 ML LIQUID PO ×3 (03:05→23:17)
[2024-04-24] MEDS: HYDRO PO ×3 (03:07→23:16)
[2024-04-24] MEDS: ACET PO ×3 (03:07→23:16)
[2024-04-24] MEDS: MIDODRINE 10 MG TABLET PO ×3 (05:35→17:44)
[2024-04-24] MEDS: BUDESONIDE 0.5 MG/2 ML AMPUL.NEB INH ×2 (06:52→18:33)
[2024-04-24] MEDS: ALPRAZolam 0.5 MG TABLET PO ×2 (10:05→20:09)
[2024-04-24] MEDS: AMIODARONE 200 MG TABLET PO (10:08)
[2024-04-24] MEDS: FAMOTIDINE 20 MG TABLET PO ×2 (10:09→20:10)
[2024-04-24] MEDS: MULTIVITAMIN 1 TAB TABLET PO (10:09)
[2024-04-24] MEDS: ASCORBIC ACID 500 MG TABLET PO ×2 (10:09→20:09)
[2024-04-24] MEDS: SENNOSIDES 8.6 MG TABLET PO ×2 (10:10→20:10)
[2024-04-24] MEDS: ACETAMINOPHEN 325 MG TABLET 650 MG PO (15:27)
[2024-04-25] VITALS (12 sets, daily range): BP systolic 101–123; BP diastolic 61–68; PULSE 64–86; RESP 14–19; TEMP 36–36.7; O2SAT 96–100
[2024-04-25] MEDS: MIDODRINE 10 MG TABLET PO ×4 (00:33→17:37)
[2024-04-25] MEDS: MAGNESIUM HYDROXIDE 30 ML ORAL SUSP ML PO (02:00)
[2024-04-25] MEDS: IPRATROPIUM/ALBUTEROL 3 ML AMPUL.NEB INH ×6 (02:17→22:27)
[2024-04-25] MEDS: MAG HYDROX/ALUMINUM HYD/SIMETH 355 ML BTL 30 ML PO (04:00)
[2024-04-25] MEDS: BUDESONIDE 0.5 MG/2 ML AMPUL.NEB INH ×2 (06:10→18:25)
[2024-04-25] MEDS: ALPRAZolam 0.5 MG TABLET PO ×2 (09:02→20:10)
[2024-04-25] MEDS: ASCORBIC ACID 500 MG TABLET PO ×2 (09:03→20:10)
[2024-04-25] MEDS: AMIODARONE 200 MG TABLET PO (09:03)
[2024-04-25] MEDS: FAMOTIDINE 20 MG TABLET PO ×2 (09:04→20:10)
[2024-04-25] MEDS: SENNOSIDES 8.6 MG TABLET PO ×2 (09:04→20:10)
[2024-04-25] MEDS: MULTIVITAMIN 1 TAB TABLET PO (09:04)
[2024-04-25] MEDS: guaiFENesin Liq 100 MG/5 ML LIQUID PO ×2 (09:30→21:30)
--- NOTE | 2024-04-25 19:03 | PC.NURSE ---
Suppository due but the resident refused.
[2024-04-25] MEDS: BISACODYL 10 MG SUPP.RECT PR (20:11)
[2024-04-25] MEDS: HYDRO PO (23:30)
[2024-04-25] MEDS: ACET PO (23:30)
[2024-04-26] VITALS (12 sets, daily range): BP systolic 93–137; BP diastolic 60–70; PULSE 66–78; RESP 16–24; TEMP 36.2–36.7; O2SAT 96–100
[2024-04-26] MEDS: IPRATROPIUM/ALBUTEROL 3 ML AMPUL.NEB INH ×6 (02:35→22:45)
[2024-04-26] MEDS: MIDODRINE 10 MG TABLET PO ×2 (05:25→17:19)
[2024-04-26] MEDS: guaiFENesin Liq 100 MG/5 ML LIQUID PO ×3 (05:26→20:00)
[2024-04-26] MEDS: BUDESONIDE 0.5 MG/2 ML AMPUL.NEB INH ×2 (07:05→18:30)
[2024-04-26] MEDS: AMIODARONE 200 MG TABLET PO (08:07)
[2024-04-26] MEDS: ALPRAZolam 0.5 MG TABLET PO ×2 (08:07→20:32)
[2024-04-26] MEDS: ASCORBIC ACID 500 MG TABLET PO ×2 (08:07→20:32)
[2024-04-26] MEDS: FAMOTIDINE 20 MG TABLET PO ×2 (08:08→20:32)
[2024-04-26] MEDS: SENNOSIDES 8.6 MG TABLET PO ×2 (08:08→20:32)
[2024-04-26] MEDS: MULTIVITAMIN 1 TAB TABLET PO (08:08)
[2024-04-26] MEDS: HYDRO PO ×2 (09:18→18:12)
[2024-04-26] MEDS: ACET PO ×2 (09:18→18:12)
[2024-04-26] MEDS: ACETAMINOPHEN 325 MG TABLET 650 MG PO ×2 (13:57→20:00)
[2024-04-27] VITALS (12 sets, daily range): BP systolic 95–156; BP diastolic 57–77; PULSE 64–86; RESP 15–24; TEMP 36.4–36.9; O2SAT 96–100
[2024-04-27] MEDS: IPRATROPIUM/ALBUTEROL 3 ML AMPUL.NEB INH ×6 (02:57→22:25)
[2024-04-27] MEDS: MIDODRINE 10 MG TABLET PO ×3 (05:21→23:45)
[2024-04-27] MEDS: ACETAMINOPHEN 325 MG TABLET 650 MG PO (05:56)
[2024-04-27] MEDS: BUDESONIDE 0.5 MG/2 ML AMPUL.NEB INH ×2 (07:40→18:40)
[2024-04-27] MEDS: guaiFENesin Liq 100 MG/5 ML LIQUID PO ×2 (07:47→21:42)
[2024-04-27] MEDS: ALPRAZolam 0.5 MG TABLET PO ×2 (08:08→20:52)
[2024-04-27] MEDS: AMIODARONE 200 MG TABLET PO (08:08)
[2024-04-27] MEDS: MULTIVITAMIN 1 TAB TABLET PO (08:08)
[2024-04-27] MEDS: FAMOTIDINE 20 MG TABLET PO ×2 (08:08→20:54)
[2024-04-27] MEDS: ASCORBIC ACID 500 MG TABLET PO ×2 (08:08→20:52)
[2024-04-27] MEDS: SENNOSIDES 8.6 MG TABLET PO ×2 (08:08→20:54)
--- NOTE | 2024-04-27 13:05 | PD.SAPROG ---
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 (2) Chronic respiratory failure with hypoxia and hypercapnia: Status: Chronic (3) Ventilator dependent: Status: Chronic (4) Congestive heart failure: Status: Chronic (5) Chronic obstructive pulmonary disease, unspecified: Status: Chronic (6) Atrial fibrillation: Status: Chronic (7) Tracheostomy in place: Status: Chronic (8) Chronic anemia: Status: Chronic SUBJECTIVE Fever:: none GI:: none Shortness of Breath:: unchanged GI:: nausea Pain:: none OBJECTIVE Most recent vital signs: Last Vital Signs Temp 96.8 F 04/28/24 05:48 Pulse 75 04/28/24 17:43 Resp 20 04/28/24 17:43 BP 112/75 04/28/24 09:19 Pulse Ox 100 04/28/24 17:43 O2 Del Method Mechanical Ventilation 04/27/24 18:00 FiO2 35 04/28/24 17:43 Neurological:: alert Speech:: nods head, mouths words and appropriate Answers questions:: yes Respiratory:: shallow breathing and rhonchi Cardiovascular: irregular Abdomen: soft Tracheostomy:: to ventilator Feeding per:: po ASSESSMENT & PLAN Assessment: stable. Tolerating ventilatory support. Not weanable because of generalized weakness. Tolerating feeding. Prognosis is very guarded. Patient aware. Family kept aware as well. Discussed with pt this week about setting ET tube in a way so the pt can speak while on Ventilator. pt was satisfied with the settings without compromising ventilation.She requested anti acid for stomach discomfort and was given prn liquid PO. No new issues. Pt seems happy. Psychotropics: Xanax 0.5 mgs bid has really done well to settle her anxiety. no side effects seen. Plan: Current treatment as well as ventilator settings reviewed and continued
[2024-04-27] MEDS: HYDRO PO (16:06)
[2024-04-27] MEDS: ACET PO (16:06)
[2024-04-28] VITALS (10 sets, daily range): BP systolic 110–117; BP diastolic 57–75; PULSE 69–82; RESP 15–20; TEMP 36–36.1; O2SAT 95–100
[2024-04-28] MEDS: ACET PO ×3 (00:40→22:55)
[2024-04-28] MEDS: HYDRO PO ×3 (00:40→22:55)
[2024-04-28] MEDS: IPRATROPIUM/ALBUTEROL 3 ML AMPUL.NEB INH ×6 (03:36→22:10)
[2024-04-28] MEDS: MIDODRINE 10 MG TABLET PO ×3 (05:12→23:37)
[2024-04-28] MEDS: BUDESONIDE 0.5 MG/2 ML AMPUL.NEB INH ×2 (06:56→17:43)
[2024-04-28] MEDS: ASCORBIC ACID 500 MG TABLET PO ×2 (09:19→20:16)
[2024-04-28] MEDS: MULTIVITAMIN 1 TAB TABLET PO (09:19)
[2024-04-28] MEDS: AMIODARONE 200 MG TABLET PO (09:19)
[2024-04-28] MEDS: ALPRAZolam 0.5 MG TABLET PO ×2 (09:19→20:16)
[2024-04-28] MEDS: FAMOTIDINE 20 MG TABLET PO ×2 (09:19→20:17)
[2024-04-28] MEDS: SENNOSIDES 8.6 MG TABLET PO ×2 (09:20→20:17)
[2024-04-28] MEDS: guaiFENesin Liq 100 MG/5 ML LIQUID PO ×3 (09:20→23:36)
[2024-04-28] MEDS: ACETAMINOPHEN 325 MG TABLET 650 MG PO ×2 (12:00→20:18)
[2024-04-29] VITALS (12 sets, daily range): BP systolic 90–133; BP diastolic 51–66; PULSE 55–79; RESP 14–26; TEMP 36–36.9; O2SAT 95–100
[2024-04-29] MEDS: IPRATROPIUM/ALBUTEROL 3 ML AMPUL.NEB INH ×6 (02:30→23:00)
[2024-04-29] MEDS: ACETAMINOPHEN 325 MG TABLET 650 MG PO (03:38)
[2024-04-29] MEDS: MIDODRINE 10 MG TABLET PO ×3 (05:28→17:16)
[2024-04-29] MEDS: BUDESONIDE 0.5 MG/2 ML AMPUL.NEB INH ×2 (06:56→18:30)
[2024-04-29] MEDS: ALPRAZolam 0.5 MG TABLET PO ×2 (09:09→20:48)
[2024-04-29] MEDS: AMIODARONE 200 MG TABLET PO (09:14)
[2024-04-29] MEDS: FAMOTIDINE 20 MG TABLET PO ×2 (09:15→20:49)
[2024-04-29] MEDS: MULTIVITAMIN 1 TAB TABLET PO (09:15)
[2024-04-29] MEDS: ASCORBIC ACID 500 MG TABLET PO ×2 (09:15→20:48)
[2024-04-29] MEDS: SENNOSIDES 8.6 MG TABLET PO ×2 (09:16→20:49)
[2024-04-29] MEDS: guaiFENesin Liq 100 MG/5 ML LIQUID PO ×2 (11:19→18:03)
[2024-04-29] MEDS: HYDRO PO (16:55)
[2024-04-29] MEDS: ACET PO (16:55)
--- NOTE | 2024-04-29 20:05 | PD.SAPROG ---
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 (2) Chronic respiratory failure with hypoxia and hypercapnia: Status: Chronic (3) Ventilator dependent: Status: Chronic (4) Congestive heart failure: Status: Chronic (5) Chronic obstructive pulmonary disease, unspecified: Status: Chronic (6) Atrial fibrillation: Status: Chronic (7) Tracheostomy in place: Status: Chronic (8) Chronic anemia: Status: Chronic SUBJECTIVE Fever:: none GI:: none Shortness of Breath:: unchanged GI:: nausea Pain:: none OBJECTIVE Most recent vital signs: Last Vital Signs Temp 98.4 F 04/29/24 17:20 Pulse 71 04/29/24 17:20 Resp 18 04/29/24 17:20 BP 119/66 04/29/24 17:20 Pulse Ox 99 04/29/24 14:13 O2 Del Method Mechanical Ventilation 04/27/24 18:00 FiO2 35 04/29/24 14:13 Neurological:: alert Speech:: nods head, mouths words and appropriate Answers questions:: yes Respiratory:: shallow breathing and rhonchi Cardiovascular: irregular Abdomen: soft Tracheostomy:: to ventilator Feeding per:: po ASSESSMENT & PLAN Assessment: stable. Tolerating ventilatory support. Not weanable because of generalized weakness. Tolerating feeding. Prognosis is very guarded. Patient aware. Family kept aware as well. Discussed with pt this week about setting ET tube in a way so the pt can speak while on Ventilator. pt was satisfied with the settings without compromising ventilation.She requested anti acid for stomach discomfort and was given prn liquid PO. No new issues. Pt seems happy. Psychotropics: Xanax 0.5 mgs bid has really done well to settle her anxiety. no side effects seen. Plan: Current treatment as well as ventilator settings reviewed and continued
[2024-04-30] VITALS (13 sets, daily range): BP systolic 113–127; BP diastolic 55–70; PULSE 45–75; RESP 14–24; TEMP 36–36.4; O2SAT 95–100
[2024-04-30] MEDS: HYDRO PO ×3 (01:05→23:57)
[2024-04-30] MEDS: ACET PO ×3 (01:05→23:57)
--- NOTE | 2024-04-30 01:45 | PC.RT ---
per clinical courier pt complaining of sob, went to assess pt , sats 93%, hr 74, RR24, suction a moderate amount of thick felix sputum, bilateral coarse bs auscultated, spo2 improved to 95%, no distress noted.
[2024-04-30] MEDS: IPRATROPIUM/ALBUTEROL 3 ML AMPUL.NEB INH ×6 (02:47→22:12)
[2024-04-30] MEDS: BUDESONIDE 0.5 MG/2 ML AMPUL.NEB INH ×2 (05:40→18:36)
[2024-04-30] MEDS: guaiFENesin Liq 100 MG/5 ML LIQUID PO ×3 (06:44→23:57)
[2024-04-30] MEDS: ACETAMINOPHEN 325 MG TABLET 650 MG PO ×2 (06:44→16:20)
[2024-04-30] MEDS: ALPRAZolam 0.5 MG TABLET PO ×2 (08:10→20:26)
[2024-04-30] MEDS: FAMOTIDINE 20 MG TABLET PO ×2 (08:11→20:27)
[2024-04-30] MEDS: AMIODARONE 200 MG TABLET PO (08:11)
[2024-04-30] MEDS: ASCORBIC ACID 500 MG TABLET PO ×2 (08:11→20:27)
[2024-04-30] MEDS: SENNOSIDES 8.6 MG TABLET PO ×2 (08:11→20:27)
[2024-04-30] MEDS: MULTIVITAMIN 1 TAB TABLET PO (08:11)
[2024-04-30] MEDS: MIDODRINE 10 MG TABLET PO ×2 (12:47→17:37)
--- NOTE | 2024-04-30 15:49 | PC.SS ---
Room visit: Resident remains on vent with trach in place. Resident prefers to wear hospital gown rather than being dressed. She requires assistance from staff for ADL's. Resident will remain in current care and will be continue to be monitored for changes in mood and behavior, she will have all subacute care needs met by staff. SSD will make daily contact with resdient and offer any support needed.
[2024-05-01] VITALS (11 sets, daily range): BP systolic 118–145; BP diastolic 63–85; PULSE 70–88; RESP 16–25; TEMP 36.1–36.9; O2SAT 97–99
[2024-05-01] MEDS: IPRATROPIUM/ALBUTEROL 3 ML AMPUL.NEB INH ×6 (02:20→22:08)
[2024-05-01] MEDS: BUDESONIDE 0.5 MG/2 ML AMPUL.NEB INH ×2 (06:00→18:30)
[2024-05-01 07:59] LABS: Basophils % (Auto) 0 % (0-2.5); Eosinophils # (Auto) 0.3 Thou/mm3 (0.0-0.5); Eosinophils % (Auto) 4 % (0-10); Hematocrit 24.9 % (36.0-46.0); Immature Granulocytes % (Auto) 0 % (0-0); Immature Granulocytes Auto 0.02 Thou/mm3 (0.00-0.00); Lymphocytes # (Auto) 1.5 Thou/mm3 (1.0-4.8); Lymphocytes % (Auto) 21 % (10-50); Mean Corpuscular HGB Conc 29.3 g/dl (31.0-37.0); Mean Corpuscular Hemoglobin 30.7 pg (25.0-35.0); Mean Corpuscular Volume 105 fL (80-100); Monocytes # (Auto) 0.8 Thou/mm3 (0.0-0.8); Monocytes % (Auto) 11 % (0-12); Neutrophils # (Auto) 4.8 Thou/mm3 (1.8-7.7); Neutrophils % (Auto) 64 % (37-80); Nucleated Red Blood Cell % 0 /100 WBC (0); Platelet Count 264 Thou/mm3 (140-440); RDW Standard Deviation 65.1 fL (36.4-46.3); Red Blood Count 2.38 Miln/mm3 (4.00-5.20); White Blood Count 7.4 Thou/mm3 (3.6-11.0)
[2024-05-01 08:03] LABS: Hemoglobin 7.3 g/dL (12.0-16.0)
[2024-05-01 08:26] LABS: Alanine Aminotransferase 8 U/L (10-49); Albumin, Serum 3.9 gm/dL (3.4-4.8); Albumin/Globulin Ratio 1.3 (1.2-2.2); Alkaline Phosphatase 78 U/L (46-116); Anion Gap 2 (7-16); Aspartate Amino Transferase 16 U/L (0-34); BUN/Creatinine Ratio 30 Ratio (12-20); Bilirubin,Total 0.2 mg/dL (0.3-1.2); Blood Urea Nitrogen 12 mg/dL (9-23); Calcium 9.1 mg/dL (8.3-10.6); Calcium (Corrected) 9.2 mg/dL (8.5-10.1); Carbon Dioxide 38.2 mMol/L (20.0-31.0); Chloride 96 mMol/L (98-107); Creatinine (Component) 0.4 mg/dL (0.6-1.3); Estimated Creatinine Clearance 71.8 mL/min (>60); Globulin 2.9 gm/dL (2.3-3.5); Glucose 92 mg/dL (74-106); Osmolality,Calculated 271 (275-295); Potassium 3.7 mMol/L (3.4-5.1); Sodium 136 mMol/L (136-145); Total Protein 6.8 gm/dL (5.7-8.2); eGFR > 60 See Note
[2024-05-01] MEDS: ALPRAZolam 0.5 MG TABLET PO ×2 (08:41→21:00)
[2024-05-01] MEDS: AMIODARONE 200 MG TABLET PO (08:42)
[2024-05-01] MEDS: ASCORBIC ACID 500 MG TABLET PO ×2 (08:43→20:16)
[2024-05-01] MEDS: FAMOTIDINE 20 MG TABLET PO ×2 (08:43→20:18)
[2024-05-01] MEDS: SENNOSIDES 8.6 MG TABLET PO ×2 (08:44→20:18)
[2024-05-01] MEDS: MULTIVITAMIN 1 TAB TABLET PO (08:44)
--- NOTE | 2024-05-01 10:43 | PC.NURSE ---
Called Dr Salazar and verbally reported resident's CBC result with hemoglobin 7.3, with order received to repeat CBC in one week. Resident remains stable.
[2024-05-01] MEDS: MIDODRINE 10 MG TABLET PO (11:34)
[2024-05-01] MEDS: guaiFENesin Liq 100 MG/5 ML LIQUID PO ×2 (11:34→20:15)
[2024-05-01] MEDS: ACET PO ×2 (15:14→23:00)
[2024-05-01] MEDS: HYDRO PO ×2 (15:14→23:00)
[2024-05-01] MEDS: ACETAMINOPHEN 325 MG TABLET 650 MG PO (23:30)
[2024-05-02] VITALS (12 sets, daily range): BP systolic 119–157; BP diastolic 68–73; PULSE 61–83; RESP 16–22; TEMP 36.1–36.7; O2SAT 93–100
[2024-05-02] MEDS: MIDODRINE 10 MG TABLET PO ×2 (00:04→05:30)
[2024-05-02] MEDS: IPRATROPIUM/ALBUTEROL 3 ML AMPUL.NEB INH ×6 (02:10→22:13)
[2024-05-02] MEDS: BUDESONIDE 0.5 MG/2 ML AMPUL.NEB INH ×2 (06:00→18:20)
[2024-05-02] MEDS: ALPRAZolam 0.5 MG TABLET PO ×2 (08:22→20:40)
[2024-05-02] MEDS: ASCORBIC ACID 500 MG TABLET PO ×2 (08:23→20:41)
[2024-05-02] MEDS: AMIODARONE 200 MG TABLET PO (08:23)
[2024-05-02] MEDS: FAMOTIDINE 20 MG TABLET PO ×2 (08:24→20:41)
[2024-05-02] MEDS: MULTIVITAMIN 1 TAB TABLET PO (08:24)
[2024-05-02] MEDS: SENNOSIDES 8.6 MG TABLET PO ×2 (08:25→20:41)
[2024-05-02] MEDS: guaiFENesin Liq 100 MG/5 ML LIQUID PO ×2 (08:25→17:32)
[2024-05-02] MEDS: ACET PO ×2 (11:33→23:00)
[2024-05-02] MEDS: HYDRO PO ×2 (11:33→23:00)
[2024-05-02] MEDS: ACETAMINOPHEN 325 MG TABLET 650 MG PO (17:32)
[2024-05-03] VITALS (11 sets, daily range): BP systolic 104–130; BP diastolic 52–77; PULSE 58–93; RESP 15–20; TEMP 36.3–36.5; O2SAT 96–100
[2024-05-03] MEDS: IPRATROPIUM/ALBUTEROL 3 ML AMPUL.NEB INH ×5 (05:00→22:04)
[2024-05-03] MEDS: BUDESONIDE 0.5 MG/2 ML AMPUL.NEB INH (05:00)
[2024-05-03] MEDS: ACETAMINOPHEN 325 MG TABLET 650 MG PO ×2 (05:41→20:13)
[2024-05-03] MEDS: MIDODRINE 10 MG TABLET PO ×4 (05:42→23:21)
[2024-05-03] MEDS: guaiFENesin Liq 100 MG/5 ML LIQUID PO ×2 (06:20→15:12)
[2024-05-03] MEDS: ALPRAZolam 0.5 MG TABLET PO ×2 (09:16→20:13)
[2024-05-03] MEDS: ASCORBIC ACID 500 MG TABLET PO ×2 (09:18→20:14)
[2024-05-03] MEDS: AMIODARONE 200 MG TABLET PO (09:18)
[2024-05-03] MEDS: MULTIVITAMIN 1 TAB TABLET PO (09:19)
[2024-05-03] MEDS: FAMOTIDINE 20 MG TABLET PO ×2 (09:19→20:14)
[2024-05-03] MEDS: SENNOSIDES 8.6 MG TABLET PO ×2 (09:19→20:14)
[2024-05-03] MEDS: HYDRO PO (16:10)
[2024-05-03] MEDS: ACET PO (16:10)
--- NOTE | 2024-05-03 17:53 | PC.NURSE ---
Resident received shower today. All treatments done.
--- NOTE | 2024-05-03 17:54 | PC.NURSE ---
Resident received shower today. All treatments done.
[2024-05-04] VITALS (13 sets, daily range): BP systolic 99–118; BP diastolic 54–63; PULSE 56–79; RESP 15–23; TEMP 36–36.4; O2SAT 96–100
[2024-05-04] MEDS: ACET PO ×2 (00:35→16:43)
[2024-05-04] MEDS: HYDRO PO ×2 (00:35→16:43)
[2024-05-04] MEDS: IPRATROPIUM/ALBUTEROL 3 ML AMPUL.NEB INH ×5 (02:00→22:34)
[2024-05-04] MEDS: guaiFENesin Liq 100 MG/5 ML LIQUID PO (04:36)
[2024-05-04] MEDS: BUDESONIDE 0.5 MG/2 ML AMPUL.NEB INH ×2 (06:05→18:13)
[2024-05-04] MEDS: ALPRAZolam 0.5 MG TABLET PO ×2 (09:21→20:40)
[2024-05-04] MEDS: ASCORBIC ACID 500 MG TABLET PO ×2 (09:22→20:40)
[2024-05-04] MEDS: AMIODARONE 200 MG TABLET PO (09:22)
[2024-05-04] MEDS: SENNOSIDES 8.6 MG TABLET PO ×2 (09:23→20:40)
[2024-05-04] MEDS: MULTIVITAMIN 1 TAB TABLET PO (09:23)
[2024-05-04] MEDS: FAMOTIDINE 20 MG TABLET PO ×2 (09:23→20:40)
[2024-05-04] MEDS: MIDODRINE 10 MG TABLET PO ×2 (11:31→17:51)
[2024-05-04] MEDS: ACETAMINOPHEN 325 MG TABLET 650 MG PO (13:34)
--- NOTE | 2024-05-04 22:51 | PD.SAPROG ---
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 (2) Chronic respiratory failure with hypoxia and hypercapnia: Status: Chronic (3) Ventilator dependent: Status: Chronic (4) Congestive heart failure: Status: Chronic (5) Chronic obstructive pulmonary disease, unspecified: Status: Chronic (6) Atrial fibrillation: Status: Chronic (7) Tracheostomy in place: Status: Chronic (8) Chronic anemia: Status: Chronic SUBJECTIVE Fever:: none GI:: none Shortness of Breath:: unchanged GI:: nausea Pain:: none OBJECTIVE Most recent vital signs: Last Vital Signs Temp 97.5 F 05/04/24 17:51 Pulse 67 05/04/24 17:51 Resp 17 05/04/24 17:51 BP 99/61 05/04/24 17:51 Pulse Ox 99 05/04/24 17:51 O2 Del Method Mechanical Ventilation 05/03/24 17:50 FiO2 35 05/04/24 22:00 Neurological:: alert Speech:: nods head, mouths words and appropriate Answers questions:: yes Respiratory:: shallow breathing and rhonchi Cardiovascular: irregular Abdomen: soft Tracheostomy:: to ventilator Feeding per:: po ASSESSMENT & PLAN Assessment: stable. Tolerating ventilatory support. Not weanable because of generalized weakness. Tolerating feeding. Prognosis is very guarded. Patient aware. Family kept aware as well. Discussed with pt this week about setting ET tube in a way so the pt can speak while on Ventilator. pt was satisfied with the settings without compromising ventilation.She requested anti acid for stomach discomfort and was given prn liquid PO. No new issues. Pt seems happy. Psychotropics: Xanax 0.5 mgs bid has really done well to settle her anxiety. no side effects seen. Plan: Current treatment as well as ventilator settings reviewed and continued
[2024-05-05] VITALS (13 sets, daily range): BP systolic 121–136; BP diastolic 66–80; PULSE 57–86; RESP 16–26; TEMP 36.1–36.6; O2SAT 93–100
[2024-05-05] MEDS: ACET PO ×2 (01:50→12:54)
[2024-05-05] MEDS: guaiFENesin Liq 100 MG/5 ML LIQUID PO (01:50)
[2024-05-05] MEDS: HYDRO PO ×2 (01:50→12:54)
[2024-05-05] MEDS: IPRATROPIUM/ALBUTEROL 3 ML AMPUL.NEB INH ×6 (02:43→22:11)
[2024-05-05] MEDS: BUDESONIDE 0.5 MG/2 ML AMPUL.NEB INH ×2 (06:58→18:18)
[2024-05-05] MEDS: ALPRAZolam 0.5 MG TABLET PO ×2 (08:13→20:00)
[2024-05-05] MEDS: FAMOTIDINE 20 MG TABLET PO ×2 (08:14→20:00)
[2024-05-05] MEDS: MULTIVITAMIN 1 TAB TABLET PO (08:14)
[2024-05-05] MEDS: ASCORBIC ACID 500 MG TABLET PO ×2 (08:14→20:00)
[2024-05-05] MEDS: SENNOSIDES 8.6 MG TABLET PO ×2 (08:16→20:01)
[2024-05-05] MEDS: MIDODRINE 10 MG TABLET PO (12:37)
[2024-05-06] VITALS (13 sets, daily range): BP systolic 93–136; BP diastolic 58–78; PULSE 61–89; RESP 14–22; TEMP 36.1–36.4; O2SAT 96–100
[2024-05-06] MEDS: IPRATROPIUM/ALBUTEROL 3 ML AMPUL.NEB INH ×6 (02:00→22:00)
[2024-05-06] MEDS: BUDESONIDE 0.5 MG/2 ML AMPUL.NEB INH ×2 (06:45→18:27)
[2024-05-06] MEDS: ALPRAZolam 0.5 MG TABLET PO ×2 (09:27→20:39)
[2024-05-06] MEDS: ASCORBIC ACID 500 MG TABLET PO ×2 (09:29→20:39)
[2024-05-06] MEDS: SENNOSIDES 8.6 MG TABLET PO ×2 (09:30→20:39)
[2024-05-06] MEDS: FAMOTIDINE 20 MG TABLET PO ×2 (09:30→20:39)
[2024-05-06] MEDS: MULTIVITAMIN 1 TAB TABLET PO (09:30)
[2024-05-06] MEDS: guaiFENesin Liq 100 MG/5 ML LIQUID PO ×2 (09:36→20:42)
[2024-05-06] MEDS: ACETAMINOPHEN 325 MG TABLET 650 MG PO (11:15)
[2024-05-06] MEDS: MIDODRINE 10 MG TABLET PO (12:57)
[2024-05-06] MEDS: ACET PO (15:00)
[2024-05-06] MEDS: HYDRO PO (15:00)
[2024-05-07] VITALS (13 sets, daily range): BP systolic 100–113; BP diastolic 53–71; PULSE 58–83; RESP 16–22; TEMP 36.3; O2SAT 94–99
[2024-05-07] MEDS: ACET PO ×2 (00:46→16:43)
[2024-05-07] MEDS: HYDRO PO ×2 (00:46→16:43)
[2024-05-07] MEDS: IPRATROPIUM/ALBUTEROL 3 ML AMPUL.NEB INH ×6 (02:32→22:04)
[2024-05-07] MEDS: MIDODRINE 10 MG TABLET PO ×4 (05:00→23:11)
[2024-05-07] MEDS: BUDESONIDE 0.5 MG/2 ML AMPUL.NEB INH ×2 (06:30→18:27)
[2024-05-07] MEDS: ASCORBIC ACID 500 MG TABLET PO ×2 (08:33→20:12)
[2024-05-07] MEDS: AMIODARONE 200 MG TABLET PO (08:33)
[2024-05-07] MEDS: ALPRAZolam 0.5 MG TABLET PO ×2 (08:33→20:11)
[2024-05-07] MEDS: MULTIVITAMIN 1 TAB TABLET PO (08:34)
[2024-05-07] MEDS: SENNOSIDES 8.6 MG TABLET PO ×2 (08:34→20:12)
[2024-05-07] MEDS: FAMOTIDINE 20 MG TABLET PO ×2 (08:34→20:12)
--- NOTE | 2024-05-07 15:14 | PC.SS ---
Room visit: Resident is laying in bed with head of the bed elevated with call light properly placed with no signs of distress. Resident remains on vent with trach in place and GT in place for medication and nutrition. Resident will remain in current care and will continue to have all subacute care needs met by staff.
[2024-05-07] MEDS: guaiFENesin Liq 100 MG/5 ML LIQUID PO (16:43)
[2024-05-08] VITALS (11 sets, daily range): BP systolic 94–125; BP diastolic 48–73; PULSE 62–77; RESP 16–23; TEMP 36.2–36.7; O2SAT 95–100
[2024-05-08] MEDS: HYDRO PO ×3 (00:52→21:38)
[2024-05-08] MEDS: guaiFENesin Liq 100 MG/5 ML LIQUID PO ×3 (00:52→21:37)
[2024-05-08] MEDS: ACET PO ×3 (00:52→21:38)
[2024-05-08] MEDS: IPRATROPIUM/ALBUTEROL 3 ML AMPUL.NEB INH ×6 (02:22→23:21)
[2024-05-08] MEDS: ACETAMINOPHEN 325 MG TABLET 650 MG PO (02:42)
[2024-05-08] MEDS: MIDODRINE 10 MG TABLET PO ×2 (05:04→11:37)
[2024-05-08 06:10] LABS: Basophils % (Auto) 0 % (0-2.5); Eosinophils # (Auto) 0.3 Thou/mm3 (0.0-0.5); Eosinophils % (Auto) 4 % (0-10); Hematocrit 24.1 % (36.0-46.0); Immature Granulocytes % (Auto) 0 % (0-0); Immature Granulocytes Auto 0.03 Thou/mm3 (0.00-0.00); Lymphocytes # (Auto) 1.4 Thou/mm3 (1.0-4.8); Lymphocytes % (Auto) 19 % (10-50); Mean Corpuscular HGB Conc 29.9 g/dl (31.0-37.0); Mean Corpuscular Hemoglobin 30.4 pg (25.0-35.0); Mean Corpuscular Volume 102 fL (80-100); Monocytes # (Auto) 0.8 Thou/mm3 (0.0-0.8); Monocytes % (Auto) 11 % (0-12); Neutrophils # (Auto) 4.9 Thou/mm3 (1.8-7.7); Neutrophils % (Auto) 65 % (37-80); Nucleated Red Blood Cell % 0 /100 WBC (0); Platelet Count 285 Thou/mm3 (140-440); RDW Standard Deviation 64.5 fL (36.4-46.3); Red Blood Count 2.37 Miln/mm3 (4.00-5.20); White Blood Count 7.5 Thou/mm3 (3.6-11.0)
[2024-05-08 06:15] LABS: Hemoglobin 7.2 g/dL (12.0-16.0)
[2024-05-08] MEDS: BUDESONIDE 0.5 MG/2 ML AMPUL.NEB INH ×2 (07:25→18:00)
[2024-05-08] MEDS: ALPRAZolam 0.5 MG TABLET PO ×2 (09:06→21:00)
[2024-05-08] MEDS: AMIODARONE 200 MG TABLET PO (09:09)
[2024-05-08] MEDS: MULTIVITAMIN 1 TAB TABLET PO (09:10)
[2024-05-08] MEDS: SENNOSIDES 8.6 MG TABLET PO ×2 (09:10→20:58)
[2024-05-08] MEDS: FAMOTIDINE 20 MG TABLET PO ×2 (09:10→20:58)
[2024-05-08] MEDS: ASCORBIC ACID 500 MG TABLET PO ×2 (09:10→20:58)
--- NOTE | 2024-05-08 10:17 | PC.NURSE ---
Addendum entered by Janeth Maurice RN 05/08/24 10:21: Called to order CBC on May 31. Will carry out order. Original Note: Notified MD regarding CBC results monitoring H&H reviewed lab over the phone no further orders given will await for the next blood draw on May 31. Will continue to monitor resident appears stable at this time.
--- NOTE | 2024-05-08 23:29 | PD.SAPROG ---
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 (2) Chronic respiratory failure with hypoxia and hypercapnia: Status: Chronic (3) Ventilator dependent: Status: Chronic (4) Congestive heart failure: Status: Chronic (5) Chronic obstructive pulmonary disease, unspecified: Status: Chronic (6) Atrial fibrillation: Status: Chronic (7) Tracheostomy in place: Status: Chronic (8) Chronic anemia: Status: Chronic SUBJECTIVE Fever:: none GI:: none Shortness of Breath:: unchanged GI:: nausea Pain:: none OBJECTIVE Most recent vital signs: Last Vital Signs Temp 98.0 F 05/08/24 18:00 Pulse 66 05/08/24 22:50 Resp 16 05/08/24 22:50 BP 125/70 05/08/24 18:00 Pulse Ox 100 05/08/24 22:50 O2 Del Method Mechanical Ventilation 05/08/24 18:00 FiO2 35 05/08/24 22:50 Neurological:: alert Speech:: nods head, mouths words and appropriate Answers questions:: yes Respiratory:: shallow breathing and rhonchi Cardiovascular: irregular Abdomen: soft Tracheostomy:: to ventilator Feeding per:: po ASSESSMENT & PLAN Assessment: stable. Tolerating ventilatory support. Not weanable because of generalized weakness. Tolerating feeding. Prognosis is very guarded. Patient aware. Family kept aware as well. Discussed with pt this week about setting ET tube in a way so the pt can speak while on Ventilator. pt was satisfied with the settings without compromising ventilation.She requested anti acid for stomach discomfort and was given prn liquid PO. No new issues. Pt seems happy. Psychotropics: Xanax 0.5 mgs bid has really done well to settle her anxiety. no side effects seen. Plan: Current treatment as well as ventilator settings reviewed and continued
[2024-05-09] VITALS (12 sets, daily range): BP systolic 97–134; BP diastolic 63–75; PULSE 59–86; RESP 14–24; TEMP 36.1–36.4; O2SAT 98–100
[2024-05-09] MEDS: IPRATROPIUM/ALBUTEROL 3 ML AMPUL.NEB INH ×6 (02:47→22:38)
[2024-05-09] MEDS: ACETAMINOPHEN 325 MG TABLET 650 MG PO (03:00)
[2024-05-09] MEDS: MIDODRINE 10 MG TABLET PO ×3 (05:51→12:12)
[2024-05-09] MEDS: BUDESONIDE 0.5 MG/2 ML AMPUL.NEB INH ×2 (06:52→18:42)
[2024-05-09] MEDS: AMIODARONE 200 MG TABLET PO (08:51)
[2024-05-09] MEDS: ALPRAZolam 0.5 MG TABLET PO ×2 (08:51→21:00)
[2024-05-09] MEDS: MULTIVITAMIN 1 TAB TABLET PO (08:51)
[2024-05-09] MEDS: SENNOSIDES 8.6 MG TABLET PO ×2 (08:51→20:16)
[2024-05-09] MEDS: ASCORBIC ACID 500 MG TABLET PO ×2 (08:51→20:16)
[2024-05-09] MEDS: FAMOTIDINE 20 MG TABLET PO ×2 (08:51→20:16)
[2024-05-09] MEDS: guaiFENesin Liq 100 MG/5 ML LIQUID PO ×2 (08:52→22:19)
[2024-05-09] MEDS: HYDRO PO ×2 (11:49→22:30)
[2024-05-09] MEDS: ACET PO ×2 (11:49→22:30)
[2024-05-09] MEDS: MAG HYDROX/ALUMINUM HYD/SIMETH 355 ML BTL 30 ML PO (22:35)
[2024-05-10] VITALS (12 sets, daily range): BP systolic 101–132; BP diastolic 57–61; PULSE 52–85; RESP 15–24; TEMP 35.9–36.4; O2SAT 95–100
[2024-05-10] MEDS: IPRATROPIUM/ALBUTEROL 3 ML AMPUL.NEB INH ×6 (02:12→23:20)
[2024-05-10] MEDS: MIDODRINE 10 MG TABLET PO ×4 (05:33→23:15)
[2024-05-10] MEDS: MAG HYDROX/ALUMINUM HYD/SIMETH 355 ML BTL 30 ML PO (07:38)
[2024-05-10] MEDS: guaiFENesin Liq 100 MG/5 ML LIQUID PO ×2 (07:38→18:04)
[2024-05-10] MEDS: BUDESONIDE 0.5 MG/2 ML AMPUL.NEB INH ×2 (07:53→18:37)
[2024-05-10] MEDS: ALPRAZolam 0.5 MG TABLET PO ×2 (08:41→21:00)
[2024-05-10] MEDS: SENNOSIDES 8.6 MG TABLET PO ×2 (08:42→20:04)
[2024-05-10] MEDS: ASCORBIC ACID 500 MG TABLET PO ×2 (08:42→20:04)
[2024-05-10] MEDS: MULTIVITAMIN 1 TAB TABLET PO (08:42)
[2024-05-10] MEDS: AMIODARONE 200 MG TABLET PO (08:42)
[2024-05-10] MEDS: FAMOTIDINE 20 MG TABLET PO ×2 (08:42→20:04)
[2024-05-10] MEDS: ACET PO ×2 (12:48→21:20)
[2024-05-10] MEDS: HYDRO PO ×2 (12:48→21:20)
[2024-05-10] MEDS: ACETAMINOPHEN 325 MG TABLET 650 MG PO (15:43)
--- NOTE | 2024-05-10 17:06 | PC.NURSE ---
Last CBc drawn with low hemoglobin of 7.2 . Received an order from Dr Salazar to start on Vitamin B complex for anemia
[2024-05-11] VITALS (14 sets, daily range): BP systolic 97–135; BP diastolic 50–73; PULSE 57–105; RESP 14–20; TEMP 36–36.2; O2SAT 97–100
[2024-05-11] MEDS: guaiFENesin Liq 100 MG/5 ML LIQUID PO ×3 (01:06→20:30)
[2024-05-11] MEDS: MAG HYDROX/ALUMINUM HYD/SIMETH 355 ML BTL 30 ML PO (02:08)
[2024-05-11] MEDS: IPRATROPIUM/ALBUTEROL 3 ML AMPUL.NEB INH ×6 (02:41→22:10)
[2024-05-11] MEDS: ACETAMINOPHEN 325 MG TABLET 650 MG PO (05:45)
[2024-05-11] MEDS: BUDESONIDE 0.5 MG/2 ML AMPUL.NEB INH ×2 (07:18→18:05)
[2024-05-11] MEDS: ALPRAZolam 0.5 MG TABLET PO ×2 (08:49→20:27)
[2024-05-11] MEDS: AMIODARONE 200 MG TABLET PO (08:49)
[2024-05-11] MEDS: MULTIVITAMIN 1 TAB TABLET PO (08:50)
[2024-05-11] MEDS: VITAMIN B COMPLEX PO (08:50)
[2024-05-11] MEDS: SENNOSIDES 8.6 MG TABLET PO ×2 (08:50→20:28)
[2024-05-11] MEDS: ASCORBIC ACID 500 MG TABLET PO ×2 (08:50→20:28)
[2024-05-11] MEDS: FAMOTIDINE 20 MG TABLET PO ×2 (08:50→20:28)
[2024-05-11] MEDS: MIDODRINE 10 MG TABLET PO (11:51)
--- NOTE | 2024-05-11 14:59 | PC.RT ---
Air added to cuff so that pt can sleep
[2024-05-11] MEDS: HYDRO PO ×2 (15:00→23:10)
[2024-05-11] MEDS: ACET PO ×2 (15:00→23:10)
[2024-05-12] VITALS (12 sets, daily range): BP systolic 100–117; BP diastolic 56–72; PULSE 56–91; RESP 15–24; TEMP 36–36.7; O2SAT 97–100
[2024-05-12] MEDS: MIDODRINE 10 MG TABLET PO ×3 (00:04→17:28)
[2024-05-12] MEDS: IPRATROPIUM/ALBUTEROL 3 ML AMPUL.NEB INH ×6 (02:20→22:00)
[2024-05-12] MEDS: guaiFENesin Liq 100 MG/5 ML LIQUID PO ×2 (02:38→10:25)
[2024-05-12] MEDS: MAGNESIUM HYDROXIDE 30 ML ORAL SUSP ML PO (05:55)
[2024-05-12] MEDS: BUDESONIDE 0.5 MG/2 ML AMPUL.NEB INH ×2 (06:43→18:10)
[2024-05-12] MEDS: ALPRAZolam 0.5 MG TABLET PO ×2 (08:40→21:00)
[2024-05-12] MEDS: AMIODARONE 200 MG TABLET PO (08:40)
[2024-05-12] MEDS: MULTIVITAMIN 1 TAB TABLET PO (08:41)
[2024-05-12] MEDS: SENNOSIDES 8.6 MG TABLET PO ×2 (08:41→20:07)
[2024-05-12] MEDS: ASCORBIC ACID 500 MG TABLET PO ×2 (08:41→20:07)
[2024-05-12] MEDS: VITAMIN B COMPLEX PO (08:41)
[2024-05-12] MEDS: FAMOTIDINE 20 MG TABLET PO ×2 (08:41→20:07)
[2024-05-12] MEDS: HYDRO PO ×2 (10:45→20:05)
[2024-05-12] MEDS: ACET PO ×2 (10:45→20:05)
[2024-05-12] MEDS: BISACODYL 10 MG SUPP.RECT PR (18:15)
--- NOTE | 2024-05-12 22:19 | PD.SAPROG ---
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 (2) Chronic respiratory failure with hypoxia and hypercapnia: Status: Chronic (3) Ventilator dependent: Status: Chronic (4) Congestive heart failure: Status: Chronic (5) Chronic obstructive pulmonary disease, unspecified: Status: Chronic (6) Atrial fibrillation: Status: Chronic (7) Tracheostomy in place: Status: Chronic (8) Chronic anemia: Status: Chronic SUBJECTIVE Fever:: none GI:: none Shortness of Breath:: unchanged GI:: nausea Pain:: none OBJECTIVE Most recent vital signs: Last Vital Signs Temp 98.0 F 05/12/24 18:00 Pulse 74 05/12/24 18:10 Resp 21 H 05/12/24 18:10 BP 105/68 05/12/24 18:00 Pulse Ox 100 05/12/24 18:10 O2 Del Method Blow-by 05/12/24 12:00 FiO2 35 05/12/24 18:10 Neurological:: alert Speech:: nods head, mouths words and appropriate Answers questions:: yes Respiratory:: shallow breathing and rhonchi Cardiovascular: irregular Abdomen: soft Tracheostomy:: to ventilator Feeding per:: po ASSESSMENT & PLAN Assessment: stable. Tolerating ventilatory support. Not weanable because of generalized weakness. Tolerating feeding. Prognosis is very guarded. Patient aware. Family kept aware as well. Discussed with pt this week about setting ET tube in a way so the pt can speak while on Ventilator. pt was satisfied with the settings without compromising ventilation.She requested anti acid for stomach discomfort and was given prn liquid PO. No new issues. Pt seems happy. Psychotropics: Xanax 0.5 mgs bid has really done well to settle her anxiety. no side effects seen. Plan: Current treatment as well as ventilator settings reviewed and continued
[2024-05-13] VITALS (13 sets, daily range): BP systolic 88–134; BP diastolic 50–84; PULSE 66–88; RESP 14–22; TEMP 36.1–36.4; O2SAT 95–100
[2024-05-13] MEDS: guaiFENesin Liq 100 MG/5 ML LIQUID PO ×2 (00:20→17:58)
[2024-05-13] MEDS: IPRATROPIUM/ALBUTEROL 3 ML AMPUL.NEB INH ×6 (02:00→22:00)
[2024-05-13] MEDS: MIDODRINE 10 MG TABLET PO ×3 (05:50→17:30)
[2024-05-13] MEDS: BUDESONIDE 0.5 MG/2 ML AMPUL.NEB INH ×2 (06:36→18:30)
[2024-05-13] MEDS: HYDRO PO ×2 (07:42→15:42)
[2024-05-13] MEDS: ACET PO ×2 (07:42→15:42)
[2024-05-13] MEDS: ALPRAZolam 0.5 MG TABLET PO ×2 (08:10→21:06)
[2024-05-13] MEDS: AMIODARONE 200 MG TABLET PO (08:10)
[2024-05-13] MEDS: MULTIVITAMIN 1 TAB TABLET PO (08:11)
[2024-05-13] MEDS: FAMOTIDINE 20 MG TABLET PO ×2 (08:11→21:06)
[2024-05-13] MEDS: ASCORBIC ACID 500 MG TABLET PO ×2 (08:11→21:06)
[2024-05-13] MEDS: SENNOSIDES 8.6 MG TABLET PO ×2 (08:11→21:06)
[2024-05-13] MEDS: VITAMIN B COMPLEX PO (08:11)
[2024-05-14] VITALS (12 sets, daily range): BP systolic 100–133; BP diastolic 59–70; PULSE 59–89; RESP 15–24; TEMP 36.2–36.6; O2SAT 98–100
[2024-05-14] MEDS: IPRATROPIUM/ALBUTEROL 3 ML AMPUL.NEB INH ×6 (02:10→23:30)
[2024-05-14] MEDS: ACETAMINOPHEN 325 MG TABLET 650 MG PO ×2 (04:00→20:02)
--- NOTE | 2024-05-14 04:15 | PC.RT ---
PT Requested suction, suctioned felix yellow thick sputum, no distress noted spo2 98%, HR73, RR15.
[2024-05-14] MEDS: BUDESONIDE 0.5 MG/2 ML AMPUL.NEB INH ×2 (06:00→18:16)
[2024-05-14] MEDS: MIDODRINE 10 MG TABLET PO ×3 (06:39→12:04)
[2024-05-14] MEDS: ALPRAZolam 0.5 MG TABLET PO ×2 (09:11→20:00)
[2024-05-14] MEDS: FAMOTIDINE 20 MG TABLET PO ×2 (09:12→20:01)
[2024-05-14] MEDS: ASCORBIC ACID 500 MG TABLET PO ×2 (09:12→20:00)
[2024-05-14] MEDS: MULTIVITAMIN 1 TAB TABLET PO (09:12)
[2024-05-14] MEDS: AMIODARONE 200 MG TABLET PO (09:12)
[2024-05-14] MEDS: SENNOSIDES 8.6 MG TABLET PO ×2 (09:13→20:01)
[2024-05-14] MEDS: VITAMIN B COMPLEX PO (09:13)
[2024-05-14] MEDS: guaiFENesin Liq 100 MG/5 ML LIQUID PO ×2 (12:22→20:01)
[2024-05-14] MEDS: HYDRO PO (12:35)
[2024-05-14] MEDS: ACET PO (12:35)
--- NOTE | 2024-05-14 12:47 | PC.SS ---
Room Visit: Resident is laying in bed with head of the bed elevated with call light properly placed with no signs of distress. Resident has clear speech able to make needs known, she is pleasant and in good spirits. Resident remains on vent with trach in place and GT for medication and nutrition. Resident will remain in current care as she has no changes in care or condition she will continue to have all subacute care needs met by staff. SSD will make daily contact with resident and monitor for changes in mood and behavior.
[2024-05-15] VITALS (12 sets, daily range): BP systolic 106–136; BP diastolic 59–76; PULSE 55–85; RESP 14–18; TEMP 35.8–36.4; O2SAT 94–100
[2024-05-15] MEDS: MIDODRINE 10 MG TABLET PO ×3 (00:04→12:24)
[2024-05-15] MEDS: HYDRO PO ×2 (01:50→15:15)
[2024-05-15] MEDS: ACET PO ×2 (01:50→15:15)
[2024-05-15] MEDS: IPRATROPIUM/ALBUTEROL 3 ML AMPUL.NEB INH ×6 (03:33→23:00)
[2024-05-15] MEDS: ACETAMINOPHEN 325 MG TABLET 650 MG PO (05:48)
[2024-05-15] MEDS: BUDESONIDE 0.5 MG/2 ML AMPUL.NEB INH ×2 (06:41→19:20)
[2024-05-15] MEDS: guaiFENesin Liq 100 MG/5 ML LIQUID PO ×2 (07:15→15:15)
[2024-05-15] MEDS: FAMOTIDINE 20 MG TABLET PO ×2 (09:14→20:07)
[2024-05-15] MEDS: ALPRAZolam 0.5 MG TABLET PO ×2 (09:14→20:06)
[2024-05-15] MEDS: ASCORBIC ACID 500 MG TABLET PO ×2 (09:14→20:07)
[2024-05-15] MEDS: MULTIVITAMIN 1 TAB TABLET PO (09:15)
[2024-05-15] MEDS: SENNOSIDES 8.6 MG TABLET PO ×2 (09:15→20:07)
[2024-05-15] MEDS: VITAMIN B COMPLEX PO (09:15)
[2024-05-15] MEDS: MAGNESIUM HYDROXIDE 30 ML ORAL SUSP ML PO (10:26)
[2024-05-16] VITALS (12 sets, daily range): BP systolic 104–133; BP diastolic 63–74; PULSE 60–87; RESP 15–23; TEMP 36.1–36.8; O2SAT 97–99
[2024-05-16] MEDS: ACET PO ×2 (00:23→19:18)
[2024-05-16] MEDS: guaiFENesin Liq 100 MG/5 ML LIQUID PO ×3 (00:23→20:08)
[2024-05-16] MEDS: HYDRO PO ×2 (00:23→19:18)
[2024-05-16] MEDS: IPRATROPIUM/ALBUTEROL 3 ML AMPUL.NEB INH ×6 (02:25→22:52)
[2024-05-16] MEDS: MIDODRINE 10 MG TABLET PO ×2 (05:37→11:36)
[2024-05-16] MEDS: BUDESONIDE 0.5 MG/2 ML AMPUL.NEB INH ×2 (07:30→18:25)
[2024-05-16] MEDS: AMIODARONE 200 MG TABLET PO (08:03)
[2024-05-16] MEDS: ASCORBIC ACID 500 MG TABLET PO ×2 (08:04→20:07)
[2024-05-16] MEDS: FAMOTIDINE 20 MG TABLET PO ×2 (08:04→20:07)
[2024-05-16] MEDS: SENNOSIDES 8.6 MG TABLET PO ×2 (08:04→20:07)
[2024-05-16] MEDS: MULTIVITAMIN 1 TAB TABLET PO (08:04)
[2024-05-16] MEDS: ALPRAZolam 0.5 MG TABLET PO ×2 (08:05→20:07)
[2024-05-16] MEDS: VITAMIN B COMPLEX PO (08:05)
[2024-05-16] MEDS: ACETAMINOPHEN 325 MG TABLET 650 MG PO (12:00)
--- NOTE | 2024-05-16 16:44 | PD.SAPROG ---
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 (2) Chronic respiratory failure with hypoxia and hypercapnia: Status: Chronic (3) Ventilator dependent: Status: Chronic (4) Congestive heart failure: Status: Chronic (5) Chronic obstructive pulmonary disease, unspecified: Status: Chronic (6) Atrial fibrillation: Status: Chronic (7) Tracheostomy in place: Status: Chronic (8) Chronic anemia: Status: Chronic SUBJECTIVE Fever:: none GI:: none Shortness of Breath:: unchanged GI:: nausea Pain:: none OBJECTIVE Most recent vital signs: Last Vital Signs Temp 98.3 F 05/16/24 12:00 Pulse 60 05/16/24 14:00 Resp 19 05/16/24 14:00 BP 115/63 05/16/24 12:00 Pulse Ox 99 05/16/24 14:00 O2 Del Method Mechanical Ventilation 05/15/24 06:00 FiO2 35 05/16/24 14:00 Neurological:: alert Speech:: nods head, mouths words and appropriate Answers questions:: yes Respiratory:: shallow breathing and rhonchi Cardiovascular: irregular Abdomen: soft Tracheostomy:: to ventilator Feeding per:: po ASSESSMENT & PLAN Assessment: stable. Tolerating ventilatory support. Not weanable because of generalized weakness. Tolerating feeding. Prognosis is very guarded. Patient aware. Family kept aware as well. Discussed with pt this week about setting ET tube in a way so the pt can speak while on Ventilator. pt was satisfied with the settings without compromising ventilation.She requested anti acid for stomach discomfort and was given prn liquid PO. No new issues. Pt seems happy. Psychotropics: Xanax 0.5 mgs bid has really done well to settle her anxiety. no side effects seen. She does not do well on lower titration of anxiety meds. Plan: Current treatment as well as ventilator settings reviewed and continued
[2024-05-17] VITALS (13 sets, daily range): BP systolic 117–135; BP diastolic 57–79; PULSE 63–82; RESP 14–26; TEMP 36.2–36.3; O2SAT 97–100
[2024-05-17] MEDS: MIDODRINE 10 MG TABLET PO (00:21)
[2024-05-17] MEDS: ACETAMINOPHEN 325 MG TABLET 650 MG PO ×2 (00:50→15:51)
[2024-05-17] MEDS: IPRATROPIUM/ALBUTEROL 3 ML AMPUL.NEB INH ×6 (03:08→22:24)
[2024-05-17] MEDS: ACET PO ×2 (04:25→19:45)
[2024-05-17] MEDS: HYDRO PO ×2 (04:25→19:45)
[2024-05-17] MEDS: guaiFENesin Liq 100 MG/5 ML LIQUID PO ×3 (04:25→16:50)
[2024-05-17] MEDS: BUDESONIDE 0.5 MG/2 ML AMPUL.NEB INH ×2 (06:40→18:40)
[2024-05-17] MEDS: ALPRAZolam 0.5 MG TABLET PO ×2 (09:16→20:09)
[2024-05-17] MEDS: ASCORBIC ACID 500 MG TABLET PO ×2 (09:17→20:09)
[2024-05-17] MEDS: AMIODARONE 200 MG TABLET PO (09:17)
[2024-05-17] MEDS: FAMOTIDINE 20 MG TABLET PO ×2 (09:17→20:09)
[2024-05-17] MEDS: SENNOSIDES 8.6 MG TABLET PO ×2 (09:19→20:10)
[2024-05-17] MEDS: MULTIVITAMIN 1 TAB TABLET PO (09:19)
[2024-05-17] MEDS: VITAMIN B COMPLEX PO (09:20)
--- NOTE | 2024-05-17 18:14 | PC.NURSE ---
Resident noted to be stable. Given cough medicine and tylenol as needed for pain. Afebrile. Resident with COPD and on mechanical ventilator. No s/s of respiratory distress noted. Respiration even and unlabored. O2 saturation noted to be at 97-100 %. V/S taken as follows: 127/79, 97.3, 74, 14. Suctioned as needed.
[2024-05-18] VITALS (12 sets, daily range): BP systolic 120–150; BP diastolic 73–81; PULSE 60–81; RESP 14–30; TEMP 36.1–36.4; O2SAT 95–100
[2024-05-18] MEDS: guaiFENesin Liq 100 MG/5 ML LIQUID PO ×3 (01:54→21:15)
[2024-05-18] MEDS: IPRATROPIUM/ALBUTEROL 3 ML AMPUL.NEB INH ×6 (02:07→20:00)
[2024-05-18] MEDS: ACETAMINOPHEN 325 MG TABLET 650 MG PO ×2 (04:15→16:34)
[2024-05-18] MEDS: MAG HYDROX/ALUMINUM HYD/SIMETH 355 ML BTL 30 ML PO (04:52)
[2024-05-18] MEDS: BUDESONIDE 0.5 MG/2 ML AMPUL.NEB INH ×2 (06:00→18:45)
[2024-05-18] MEDS: VITAMIN B COMPLEX PO (08:00)
[2024-05-18] MEDS: AMIODARONE 200 MG TABLET PO (08:00)
[2024-05-18] MEDS: SENNOSIDES 8.6 MG TABLET PO ×2 (08:00→20:15)
[2024-05-18] MEDS: ALPRAZolam 0.5 MG TABLET PO ×2 (08:00→20:15)
[2024-05-18] MEDS: ASCORBIC ACID 500 MG TABLET PO ×2 (08:00→20:15)
[2024-05-18] MEDS: MULTIVITAMIN 1 TAB TABLET PO (08:00)
[2024-05-18] MEDS: FAMOTIDINE 20 MG TABLET PO ×2 (08:00→20:15)
[2024-05-18] MEDS: ACET PO ×2 (11:07→23:49)
[2024-05-18] MEDS: HYDRO PO ×2 (11:07→23:49)
[2024-05-18] MEDS: MIDODRINE 10 MG TABLET PO (23:49)
[2024-05-19] VITALS (13 sets, daily range): BP systolic 113–122; BP diastolic 61–72; PULSE 60–98; RESP 14–22; TEMP 36.1–36.3; O2SAT 97–100
[2024-05-19] MEDS: IPRATROPIUM/ALBUTEROL 3 ML AMPUL.NEB INH ×6 (02:22→22:46)
[2024-05-19] MEDS: ACETAMINOPHEN 325 MG TABLET 650 MG PO ×2 (05:34→20:18)
[2024-05-19] MEDS: MAG HYDROX/ALUMINUM HYD/SIMETH 355 ML BTL 30 ML PO (05:35)
[2024-05-19] MEDS: BUDESONIDE 0.5 MG/2 ML AMPUL.NEB INH ×2 (06:55→18:36)
[2024-05-19] MEDS: ALPRAZolam 0.5 MG TABLET PO ×2 (08:00→20:15)
[2024-05-19] MEDS: AMIODARONE 200 MG TABLET PO (08:00)
[2024-05-19] MEDS: ASCORBIC ACID 500 MG TABLET PO ×2 (08:14→20:16)
[2024-05-19] MEDS: FAMOTIDINE 20 MG TABLET PO ×2 (08:15→20:16)
[2024-05-19] MEDS: SENNOSIDES 8.6 MG TABLET PO ×2 (08:15→20:16)
[2024-05-19] MEDS: MULTIVITAMIN 1 TAB TABLET PO (08:15)
[2024-05-19] MEDS: VITAMIN B COMPLEX PO (08:15)
[2024-05-19] MEDS: guaiFENesin Liq 100 MG/5 ML LIQUID PO ×3 (09:13→23:15)
[2024-05-19] MEDS: MIDODRINE 10 MG TABLET PO ×2 (12:12→17:08)
[2024-05-19] MEDS: ACET PO (15:32)
[2024-05-19] MEDS: HYDRO PO (15:32)
[2024-05-20] VITALS (12 sets, daily range): BP systolic 101–146; BP diastolic 57–85; PULSE 64–92; RESP 20–26; TEMP 36.2–36.4; O2SAT 98–99
[2024-05-20] MEDS: IPRATROPIUM/ALBUTEROL 3 ML AMPUL.NEB INH ×6 (03:05→22:10)
[2024-05-20] MEDS: HYDRO PO ×2 (03:52→14:01)
[2024-05-20] MEDS: ACET PO ×2 (03:52→14:01)
[2024-05-20] MEDS: BUDESONIDE 0.5 MG/2 ML AMPUL.NEB INH ×2 (05:20→19:30)
[2024-05-20] MEDS: MIDODRINE 10 MG TABLET PO ×3 (05:35→17:22)
[2024-05-20] MEDS: MAG HYDROX/ALUMINUM HYD/SIMETH 355 ML BTL 30 ML PO (05:36)
[2024-05-20] MEDS: ALPRAZolam 0.5 MG TABLET PO ×2 (09:35→20:47)
[2024-05-20] MEDS: AMIODARONE 200 MG TABLET PO (09:35)
[2024-05-20] MEDS: SENNOSIDES 8.6 MG TABLET PO ×2 (09:36→20:48)
[2024-05-20] MEDS: ASCORBIC ACID 500 MG TABLET PO ×2 (09:36→20:47)
[2024-05-20] MEDS: FAMOTIDINE 20 MG TABLET PO ×2 (09:36→20:48)
[2024-05-20] MEDS: MULTIVITAMIN 1 TAB TABLET PO (09:36)
[2024-05-20] MEDS: VITAMIN B COMPLEX PO (09:37)
[2024-05-20] MEDS: guaiFENesin Liq 100 MG/5 ML LIQUID PO ×2 (09:38→21:05)
[2024-05-20] MEDS: MAGNESIUM HYDROXIDE 30 ML ORAL SUSP ML PO (09:38)
[2024-05-20] MEDS: ACETAMINOPHEN 325 MG TABLET 650 MG PO (17:22)
--- NOTE | 2024-05-20 22:16 | PD.SAPROG ---
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 (2) Chronic respiratory failure with hypoxia and hypercapnia: Status: Chronic (3) Ventilator dependent: Status: Chronic (4) Congestive heart failure: Status: Chronic (5) Chronic obstructive pulmonary disease, unspecified: Status: Chronic (6) Atrial fibrillation: Status: Chronic (7) Tracheostomy in place: Status: Chronic (8) Chronic anemia: Status: Chronic SUBJECTIVE Fever:: none GI:: none Shortness of Breath:: unchanged GI:: nausea Pain:: none OBJECTIVE Most recent vital signs: Last Vital Signs Temp 97.5 F 05/20/24 17:35 Pulse 64 05/20/24 19:30 Resp 23 H 05/20/24 19:30 BP 143/85 H 05/20/24 17:35 Pulse Ox 98 05/20/24 19:30 O2 Del Method Mechanical Ventilation 05/20/24 17:35 FiO2 35 05/20/24 19:30 Neurological:: alert Speech:: nods head, mouths words and appropriate Answers questions:: yes Respiratory:: shallow breathing and rhonchi Cardiovascular: irregular Abdomen: soft Tracheostomy:: to ventilator Feeding per:: po ASSESSMENT & PLAN Assessment: stable. Tolerating ventilatory support. Not weanable because of generalized weakness. Tolerating feeding. Prognosis is very guarded. Patient aware. Family kept aware as well. Discussed with pt this week about setting ET tube in a way so the pt can speak while on Ventilator. pt was satisfied with the settings without compromising ventilation.She requested anti acid for stomach discomfort and was given prn liquid PO. No new issues. Pt seems happy. Psychotropics: Xanax 0.5 mgs bid has really done well to settle her anxiety. no side effects seen. She does not do well on lower titration of anxiety meds. Plan: Current treatment as well as ventilator settings reviewed and continued
[2024-05-21] VITALS (12 sets, daily range): BP systolic 100–124; BP diastolic 61–65; PULSE 63–81; RESP 20–24; TEMP 36–36.5; O2SAT 94–99
[2024-05-21] MEDS: MIDODRINE 10 MG TABLET PO ×2 (00:23→05:26)
[2024-05-21] MEDS: IPRATROPIUM/ALBUTEROL 3 ML AMPUL.NEB INH ×6 (02:01→22:19)
[2024-05-21] MEDS: ACETAMINOPHEN 325 MG TABLET 650 MG PO ×3 (06:10→20:37)
[2024-05-21] MEDS: guaiFENesin Liq 100 MG/5 ML LIQUID PO ×3 (06:10→20:38)
[2024-05-21] MEDS: BUDESONIDE 0.5 MG/2 ML AMPUL.NEB INH ×2 (07:10→18:29)
[2024-05-21] MEDS: ALPRAZolam 0.5 MG TABLET PO ×2 (09:56→20:33)
[2024-05-21] MEDS: AMIODARONE 200 MG TABLET PO (09:56)
[2024-05-21] MEDS: FAMOTIDINE 20 MG TABLET PO ×2 (09:57→20:34)
[2024-05-21] MEDS: VITAMIN B COMPLEX PO (09:57)
[2024-05-21] MEDS: SENNOSIDES 8.6 MG TABLET PO ×2 (09:57→20:35)
[2024-05-21] MEDS: MULTIVITAMIN 1 TAB TABLET PO (09:57)
[2024-05-21] MEDS: ASCORBIC ACID 500 MG TABLET PO ×2 (09:57→20:34)
[2024-05-21] MEDS: HYDRO PO (10:15)
[2024-05-21] MEDS: ACET PO (10:15)
--- NOTE | 2024-05-21 16:08 | PC.SS ---
Room visit: Resident is laying in bed with head of the bed elevated with call light properly placed. Resident has no changes in care or condition, remains on vent with trach in place, she eats by mouth. Resident will remain in current care and will continue to have all subacute care needs met by staff.
[2024-05-22] VITALS (11 sets, daily range): BP systolic 102–133; BP diastolic 57–66; PULSE 63–88; RESP 14–23; TEMP 36–36.3; O2SAT 96–99
[2024-05-22] MEDS: MIDODRINE 10 MG TABLET PO ×3 (00:39→11:25)
[2024-05-22] MEDS: IPRATROPIUM/ALBUTEROL 3 ML AMPUL.NEB INH ×6 (02:39→22:40)
[2024-05-22] MEDS: ACET PO ×3 (04:30→20:48)
[2024-05-22] MEDS: HYDRO PO ×3 (04:30→20:48)
[2024-05-22] MEDS: BUDESONIDE 0.5 MG/2 ML AMPUL.NEB INH ×2 (06:47→18:39)
[2024-05-22] MEDS: ALPRAZolam 0.5 MG TABLET PO ×2 (09:18→20:45)
[2024-05-22] MEDS: FAMOTIDINE 20 MG TABLET PO ×2 (09:20→20:45)
[2024-05-22] MEDS: ASCORBIC ACID 500 MG TABLET PO ×2 (09:20→20:45)
[2024-05-22] MEDS: VITAMIN B COMPLEX PO (09:20)
[2024-05-22] MEDS: MULTIVITAMIN 1 TAB TABLET PO (09:20)
[2024-05-22] MEDS: AMIODARONE 200 MG TABLET PO (09:20)
[2024-05-22] MEDS: SENNOSIDES 8.6 MG TABLET PO ×2 (09:20→20:45)
[2024-05-22] MEDS: guaiFENesin Liq 100 MG/5 ML LIQUID PO ×2 (09:21→20:54)
[2024-05-22] MEDS: ACETAMINOPHEN 325 MG TABLET 650 MG PO (16:47)
[2024-05-23] VITALS (10 sets, daily range): BP systolic 102–135; BP diastolic 55–74; PULSE 55–76; RESP 14–27; TEMP 36.3–36.5; O2SAT 96–100
[2024-05-23] MEDS: IPRATROPIUM/ALBUTEROL 3 ML AMPUL.NEB INH ×6 (02:40→22:00)
[2024-05-23] MEDS: MIDODRINE 10 MG TABLET PO ×3 (05:08→17:55)
[2024-05-23] MEDS: BUDESONIDE 0.5 MG/2 ML AMPUL.NEB INH ×2 (06:00→18:54)
[2024-05-23] MEDS: AMIODARONE 200 MG TABLET PO (08:59)
[2024-05-23] MEDS: ALPRAZolam 0.5 MG TABLET PO ×2 (08:59→21:45)
[2024-05-23] MEDS: SENNOSIDES 8.6 MG TABLET PO ×2 (09:00→21:46)
[2024-05-23] MEDS: ASCORBIC ACID 500 MG TABLET PO ×2 (09:00→21:45)
[2024-05-23] MEDS: VITAMIN B COMPLEX PO (09:00)
[2024-05-23] MEDS: FAMOTIDINE 20 MG TABLET PO ×2 (09:00→21:46)
[2024-05-23] MEDS: MULTIVITAMIN 1 TAB TABLET PO (09:00)
[2024-05-23] MEDS: guaiFENesin Liq 100 MG/5 ML LIQUID PO ×2 (12:31→21:47)
[2024-05-23] MEDS: ACET PO (15:51)
[2024-05-23] MEDS: HYDRO PO (15:51)
[2024-05-23] MEDS: MAG HYDROX/ALUMINUM HYD/SIMETH 355 ML BTL 30 ML PO (15:51)
[2024-05-23] MEDS: ACETAMINOPHEN 325 MG TABLET 650 MG PO (21:47)
[2024-05-24] VITALS (12 sets, daily range): BP systolic 100–118; BP diastolic 55–70; PULSE 55–79; RESP 14–59; TEMP 35.9–36.6; O2SAT 98–100
[2024-05-24] MEDS: HYDRO PO ×2 (02:41→17:20)
[2024-05-24] MEDS: ACET PO ×2 (02:41→17:20)
[2024-05-24] MEDS: IPRATROPIUM/ALBUTEROL 3 ML AMPUL.NEB INH ×5 (02:55→22:18)
[2024-05-24] MEDS: MIDODRINE 10 MG TABLET PO ×4 (05:16→23:20)
[2024-05-24] MEDS: BUDESONIDE 0.5 MG/2 ML AMPUL.NEB INH ×2 (06:32→18:28)
--- NOTE | 2024-05-24 08:29 | CHAP ---
Patient was visited by a Spiritual Care Volunteer on 05/21/2024 between 0915 and 1200 and received comfort, encouragement and/or prayer.
[2024-05-24] MEDS: ALPRAZolam 0.5 MG TABLET PO ×2 (09:09→20:06)
[2024-05-24] MEDS: SENNOSIDES 8.6 MG TABLET PO ×2 (09:10→20:06)
[2024-05-24] MEDS: ASCORBIC ACID 500 MG TABLET PO ×2 (09:10→20:06)
[2024-05-24] MEDS: guaiFENesin Liq 100 MG/5 ML LIQUID PO ×3 (09:10→23:19)
[2024-05-24] MEDS: ACETAMINOPHEN 325 MG TABLET 650 MG PO ×2 (09:10→15:30)
[2024-05-24] MEDS: FAMOTIDINE 20 MG TABLET PO ×2 (09:10→20:06)
[2024-05-24] MEDS: VITAMIN B COMPLEX PO (09:10)
[2024-05-24] MEDS: MULTIVITAMIN 1 TAB TABLET PO (09:10)
--- NOTE | 2024-05-24 20:17 | PD.SAPROG ---
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 (2) Chronic respiratory failure with hypoxia and hypercapnia: Status: Chronic (3) Ventilator dependent: Status: Chronic (4) Congestive heart failure: Status: Chronic (5) Chronic obstructive pulmonary disease, unspecified: Status: Chronic (6) Atrial fibrillation: Status: Chronic (7) Tracheostomy in place: Status: Chronic (8) Chronic anemia: Status: Chronic SUBJECTIVE Fever:: none GI:: none Shortness of Breath:: unchanged GI:: nausea Pain:: none OBJECTIVE Most recent vital signs: Last Vital Signs Temp 97.9 F 05/24/24 16:10 Pulse 72 05/24/24 12:36 Resp 59 H 05/24/24 16:10 BP 100/56 L 05/24/24 16:10 Pulse Ox 98 05/24/24 16:10 O2 Del Method Mechanical Ventilation 05/21/24 06:00 FiO2 35 05/24/24 12:36 Neurological:: alert Speech:: nods head, mouths words and appropriate Answers questions:: yes Respiratory:: shallow breathing and rhonchi Cardiovascular: irregular Abdomen: soft Tracheostomy:: to ventilator Feeding per:: po ASSESSMENT & PLAN Assessment: stable. Tolerating ventilatory support. Not weanable because of generalized weakness. Tolerating feeding. Prognosis is very guarded. Patient aware. Family kept aware as well. Discussed with pt this week about setting ET tube in a way so the pt can speak while on Ventilator. pt was satisfied with the settings without compromising ventilation.She requested anti acid for stomach discomfort and was given prn liquid PO. No new issues. Pt seems happy. Psychotropics: Xanax 0.5 mgs bid has really done well to settle her anxiety. no side effects seen. She does not do well on lower titration of anxiety meds. No new issues. Plan: Current treatment as well as ventilator settings reviewed and continued.
[2024-05-25] VITALS (13 sets, daily range): BP systolic 110–144; BP diastolic 48–69; PULSE 58–77; RESP 15–24; TEMP 36.1–36.6; O2SAT 98–100
[2024-05-25] MEDS: IPRATROPIUM/ALBUTEROL 3 ML AMPUL.NEB INH ×6 (02:11→22:47)
[2024-05-25] MEDS: HYDRO PO ×3 (02:25→22:25)
[2024-05-25] MEDS: ACET PO ×3 (02:25→22:25)
[2024-05-25] MEDS: MIDODRINE 10 MG TABLET PO (06:11)
[2024-05-25] MEDS: ACETAMINOPHEN 325 MG TABLET 650 MG PO ×2 (06:11→20:15)
[2024-05-25] MEDS: BUDESONIDE 0.5 MG/2 ML AMPUL.NEB INH ×2 (06:45→18:14)
[2024-05-25] MEDS: ALPRAZolam 0.5 MG TABLET PO ×2 (08:42→20:11)
[2024-05-25] MEDS: AMIODARONE 200 MG TABLET PO (08:42)
[2024-05-25] MEDS: SENNOSIDES 8.6 MG TABLET PO ×2 (08:43→20:12)
[2024-05-25] MEDS: ASCORBIC ACID 500 MG TABLET PO ×2 (08:43→20:12)
[2024-05-25] MEDS: FAMOTIDINE 20 MG TABLET PO ×2 (08:43→20:12)
[2024-05-25] MEDS: MULTIVITAMIN 1 TAB TABLET PO (08:43)
[2024-05-25] MEDS: VITAMIN B COMPLEX PO (08:43)
[2024-05-25] MEDS: guaiFENesin Liq 100 MG/5 ML LIQUID PO ×2 (09:00→20:15)
[2024-05-26] VITALS (12 sets, daily range): BP systolic 98–127; BP diastolic 64–73; PULSE 65–85; RESP 15–22; TEMP 36–36.4; O2SAT 96–100
[2024-05-26] MEDS: MIDODRINE 10 MG TABLET PO ×3 (00:15→23:35)
[2024-05-26] MEDS: IPRATROPIUM/ALBUTEROL 3 ML AMPUL.NEB INH ×5 (02:18→18:04)
[2024-05-26] MEDS: BUDESONIDE 0.5 MG/2 ML AMPUL.NEB INH ×2 (06:39→18:04)
[2024-05-26] MEDS: ALPRAZolam 0.5 MG TABLET PO ×2 (08:04→20:34)
[2024-05-26] MEDS: AMIODARONE 200 MG TABLET PO (08:04)
[2024-05-26] MEDS: ASCORBIC ACID 500 MG TABLET PO ×2 (08:04→20:34)
[2024-05-26] MEDS: SENNOSIDES 8.6 MG TABLET PO ×2 (08:05→20:34)
[2024-05-26] MEDS: MAGNESIUM HYDROXIDE 30 ML ORAL SUSP ML PO (08:05)
[2024-05-26] MEDS: MULTIVITAMIN 1 TAB TABLET PO (08:05)
[2024-05-26] MEDS: FAMOTIDINE 20 MG TABLET PO ×2 (08:05→20:34)
[2024-05-26] MEDS: VITAMIN B COMPLEX PO (08:05)
[2024-05-26] MEDS: ACETAMINOPHEN 325 MG TABLET 650 MG PO (09:56)
[2024-05-26] MEDS: BISACODYL 10 MG SUPP.RECT PR (10:24)
[2024-05-26] MEDS: guaiFENesin Liq 100 MG/5 ML LIQUID PO ×3 (10:26→23:31)
--- NOTE | 2024-05-26 17:23 | PC.NURSE ---
Addendum entered by Janeth Maurice RN 05/26/24 17:29: and agree with MD plan of care. Will continue to monitor. Original Note: REsident voiced a concern about her getting respiratory infection. She stated I have been taking a lot of cough syrup she stated she feels she is getting sick like a respiratory infection . resident requested Z-pack from doctor Martin. notified MD of resident statement. did not order any type of antibiotic at this time. Resident remain a febrile. no changes in condition that will indicated she is getting sick. MD order a CBC to be done tomorrow morning to detect elevated WBC then will notify MD of results. Resident was notified.
[2024-05-26] MEDS: SODIUM PHOSPHATE,MONO-DIBASIC 133 ML ENEMA PR (21:40)
[2024-05-26] MEDS: HYDRO PO (23:31)
[2024-05-26] MEDS: ACET PO (23:31)
[2024-05-27] VITALS (12 sets, daily range): BP systolic 85–135; BP diastolic 47–84; PULSE 55–76; RESP 14–21; TEMP 36.1–36.4; O2SAT 97–100
[2024-05-27] MEDS: ACETAMINOPHEN 325 MG TABLET 650 MG PO ×3 (02:57→21:01)
[2024-05-27] MEDS: IPRATROPIUM/ALBUTEROL 3 ML AMPUL.NEB INH ×6 (03:30→22:18)
[2024-05-27 07:03] LABS: Basophils % (Auto) 0 % (0-2.5); Eosinophils # (Auto) 0.3 Thou/mm3 (0.0-0.5); Eosinophils % (Auto) 3 % (0-10); Hematocrit 24.8 % (36.0-46.0); Immature Granulocytes % (Auto) 0 % (0-0); Immature Granulocytes Auto 0.02 Thou/mm3 (0.00-0.00); Lymphocytes # (Auto) 1.6 Thou/mm3 (1.0-4.8); Lymphocytes % (Auto) 17 % (10-50); Mean Corpuscular HGB Conc 30.2 g/dl (31.0-37.0); Mean Corpuscular Hemoglobin 30.1 pg (25.0-35.0); Mean Corpuscular Volume 100 fL (80-100); Monocytes % (Auto) 10 % (0-12); Neutrophils # (Auto) 6.6 Thou/mm3 (1.8-7.7); Neutrophils % (Auto) 69 % (37-80); Nucleated Red Blood Cell % 0 /100 WBC (0); Platelet Count 267 Thou/mm3 (140-440); RDW Standard Deviation 61.5 fL (36.4-46.3); Red Blood Count 2.49 Miln/mm3 (4.00-5.20); White Blood Count 9.5 Thou/mm3 (3.6-11.0)
[2024-05-27 07:05] LABS: Hemoglobin 7.5 g/dL (12.0-16.0)
[2024-05-27] MEDS: BUDESONIDE 0.5 MG/2 ML AMPUL.NEB INH (07:19)
[2024-05-27] MEDS: guaiFENesin Liq 100 MG/5 ML LIQUID PO ×3 (07:30→21:01)
[2024-05-27] MEDS: ALPRAZolam 0.5 MG TABLET PO ×2 (09:20→21:02)
[2024-05-27] MEDS: FAMOTIDINE 20 MG TABLET PO ×2 (09:21→21:02)
[2024-05-27] MEDS: AMIODARONE 200 MG TABLET PO (09:21)
[2024-05-27] MEDS: ASCORBIC ACID 500 MG TABLET PO ×2 (09:21→21:02)
[2024-05-27] MEDS: SENNOSIDES 8.6 MG TABLET PO ×2 (09:21→21:02)
[2024-05-27] MEDS: MULTIVITAMIN 1 TAB TABLET PO (09:21)
[2024-05-27] MEDS: VITAMIN B COMPLEX PO (09:21)
[2024-05-27] MEDS: MIDODRINE 10 MG TABLET PO ×3 (12:13→23:41)
[2024-05-27] MEDS: ACET PO (14:25)
[2024-05-27] MEDS: HYDRO PO (14:25)
--- NOTE | 2024-05-27 23:09 | PC.NURSE ---
Resident pressed call light for assistance, resident tubing came off in two places per resident, FINISHER MACHINE connected tubing back, RT was called, resident requesting multiple 100% oxygen boost, resident informed by this nurse that I can't give her boost and informed her of previous conversation with her about giving her 100% oxygen boost is not good for COPD patients, resident stated, call RT and I can ask her. RT called and came to room, no boost was provided, emotional support and reassurance provided.
[2024-05-28] VITALS (12 sets, daily range): BP systolic 97–124; BP diastolic 55–64; PULSE 53–81; RESP 14–26; TEMP 36–36.4; O2SAT 97–99
[2024-05-28] MEDS: IPRATROPIUM/ALBUTEROL 3 ML AMPUL.NEB INH ×6 (02:03→22:07)
[2024-05-28] MEDS: ACETAMINOPHEN 325 MG TABLET 650 MG PO (03:26)
[2024-05-28] MEDS: MIDODRINE 10 MG TABLET PO ×3 (05:09→18:33)
[2024-05-28] MEDS: ALPRAZolam 0.5 MG TABLET PO ×2 (09:27→20:23)
[2024-05-28] MEDS: ASCORBIC ACID 500 MG TABLET PO ×2 (09:28→20:23)
[2024-05-28] MEDS: SENNOSIDES 8.6 MG TABLET PO ×2 (09:28→20:23)
[2024-05-28] MEDS: MULTIVITAMIN 1 TAB TABLET PO (09:28)
[2024-05-28] MEDS: FAMOTIDINE 20 MG TABLET PO ×2 (09:28→20:23)
[2024-05-28] MEDS: VITAMIN B COMPLEX PO (09:29)
[2024-05-28] MEDS: guaiFENesin Liq 100 MG/5 ML LIQUID PO ×2 (09:30→18:45)
--- NOTE | 2024-05-28 15:26 | PC.SS ---
Room visit: resident has POA in place, she is alert and oriented with clear speech. Resident is laying in bed with head of the bed elevated with call light properly placed with no signs of distress. Resident remains on vent with trach in place and GT for medication and nutrition. Resident has no changes in care or condition, resident will remain in current care and will continue to have all subacute care needs met by staff. This SSD to make daily contact and monitor for changes in mod and behavior and will offer support as needed.
[2024-05-28] MEDS: HYDRO PO (15:50)
[2024-05-28] MEDS: ACET PO (15:50)
--- NOTE | 2024-05-28 22:03 | PD.SAPROG ---
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 (2) Chronic respiratory failure with hypoxia and hypercapnia: Status: Chronic (3) Ventilator dependent: Status: Chronic (4) Congestive heart failure: Status: Chronic (5) Chronic obstructive pulmonary disease, unspecified: Status: Chronic (6) Atrial fibrillation: Status: Chronic (7) Tracheostomy in place: Status: Chronic (8) Chronic anemia: Status: Chronic SUBJECTIVE Fever:: none GI:: none Shortness of Breath:: unchanged GI:: nausea Pain:: none OBJECTIVE Most recent vital signs: Last Vital Signs Temp 96.8 F 05/28/24 17:58 Pulse 81 05/28/24 18:37 Resp 18 05/28/24 18:37 BP 108/64 05/28/24 17:58 Pulse Ox 99 05/28/24 18:37 O2 Del Method Mechanical Ventilation 05/27/24 17:46 FiO2 35 05/28/24 18:37 Neurological:: alert Speech:: nods head, mouths words and appropriate Answers questions:: yes Respiratory:: shallow breathing and rhonchi Cardiovascular: irregular Abdomen: soft Tracheostomy:: to ventilator Feeding per:: po ASSESSMENT & PLAN Assessment: stable. Tolerating ventilatory support. Not weanable because of generalized weakness. Tolerating feeding. Prognosis is very guarded. Patient aware. Family kept aware as well. Discussed with pt this week about setting ET tube in a way so the pt can speak while on Ventilator. pt was satisfied with the settings without compromising ventilation.She requested anti acid for stomach discomfort and was given prn liquid PO. No new issues. Pt seems happy. Psychotropics: Xanax 0.5 mgs bid has really done well to settle her anxiety. no side effects seen. She does not do well on lower titration of anxiety meds. No new issues. Plan: Current treatment as well as ventilator settings reviewed and continued.
[2024-05-29] VITALS (11 sets, daily range): BP systolic 108–133; BP diastolic 58–68; PULSE 62–86; RESP 14–24; TEMP 36.3–36.6; O2SAT 96–99
[2024-05-29] MEDS: HYDRO PO ×2 (00:40→18:27)
[2024-05-29] MEDS: ACET PO ×2 (00:40→18:27)
[2024-05-29] MEDS: guaiFENesin Liq 100 MG/5 ML LIQUID PO ×3 (01:30→14:38)
[2024-05-29] MEDS: IPRATROPIUM/ALBUTEROL 3 ML AMPUL.NEB INH ×6 (02:20→22:04)
[2024-05-29] MEDS: ACETAMINOPHEN 325 MG TABLET 650 MG PO ×2 (03:03→14:36)
[2024-05-29] MEDS: MIDODRINE 10 MG TABLET PO ×4 (05:59→23:16)
[2024-05-29] MEDS: BUDESONIDE 0.5 MG/2 ML AMPUL.NEB INH (07:19)
[2024-05-29] MEDS: ALPRAZolam 0.5 MG TABLET PO ×2 (08:04→20:00)
[2024-05-29] MEDS: AMIODARONE 200 MG TABLET PO (08:05)
[2024-05-29] MEDS: SENNOSIDES 8.6 MG TABLET PO ×2 (08:06→20:00)
[2024-05-29] MEDS: VITAMIN B COMPLEX PO (08:06)
[2024-05-29] MEDS: MULTIVITAMIN 1 TAB TABLET PO (08:06)
[2024-05-29] MEDS: ASCORBIC ACID 500 MG TABLET PO ×2 (08:06→20:00)
[2024-05-29] MEDS: FAMOTIDINE 20 MG TABLET PO ×2 (08:06→20:00)
[2024-05-30] VITALS (13 sets, daily range): BP systolic 103–144; BP diastolic 60–68; PULSE 57–88; RESP 15–21; TEMP 36.3–36.4; O2SAT 97–99
[2024-05-30] MEDS: ACETAMINOPHEN 325 MG TABLET 650 MG PO (00:30)
[2024-05-30] MEDS: IPRATROPIUM/ALBUTEROL 3 ML AMPUL.NEB INH ×6 (02:40→22:25)
[2024-05-30] MEDS: guaiFENesin Liq 100 MG/5 ML LIQUID PO (02:50)
[2024-05-30] MEDS: MIDODRINE 10 MG TABLET PO ×2 (06:00→12:36)
[2024-05-30] MEDS: BUDESONIDE 0.5 MG/2 ML AMPUL.NEB INH ×2 (07:25→18:35)
[2024-05-30] MEDS: ASCORBIC ACID 500 MG TABLET PO ×2 (09:18→20:23)
[2024-05-30] MEDS: FAMOTIDINE 20 MG TABLET PO ×2 (09:18→20:23)
[2024-05-30] MEDS: AMIODARONE 200 MG TABLET PO (09:18)
[2024-05-30] MEDS: MULTIVITAMIN 1 TAB TABLET PO (09:19)
[2024-05-30] MEDS: SENNOSIDES 8.6 MG TABLET PO ×2 (09:20→20:23)
[2024-05-30] MEDS: ALPRAZolam 0.5 MG TABLET PO ×2 (09:21→20:22)
[2024-05-30] MEDS: VITAMIN B COMPLEX PO (09:21)
--- NOTE | 2024-05-30 19:33 | PD.SAPROG ---
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 (2) Chronic respiratory failure with hypoxia and hypercapnia: Status: Chronic (3) Ventilator dependent: Status: Chronic (4) Congestive heart failure: Status: Chronic (5) Chronic obstructive pulmonary disease, unspecified: Status: Chronic (6) Atrial fibrillation: Status: Chronic (7) Tracheostomy in place: Status: Chronic (8) Chronic anemia: Status: Chronic SUBJECTIVE Fever:: none GI:: none Shortness of Breath:: unchanged GI:: nausea Pain:: none OBJECTIVE Most recent vital signs: Last Vital Signs Temp 97.6 F 05/30/24 17:41 Pulse 64 05/30/24 17:41 Resp 18 05/30/24 17:41 BP 128/62 05/30/24 17:41 Pulse Ox 97 05/30/24 17:41 O2 Del Method Mechanical Ventilation 05/30/24 17:41 FiO2 35 05/30/24 14:05 Neurological:: alert Speech:: nods head, mouths words and appropriate Answers questions:: yes Respiratory:: shallow breathing and rhonchi Cardiovascular: irregular Abdomen: soft Tracheostomy:: to ventilator Feeding per:: po ASSESSMENT & PLAN Assessment: stable. Tolerating ventilatory support. Not weanable because of generalized weakness. Tolerating feeding. Prognosis is very guarded. Patient aware. Family kept aware as well. Discussed with pt this week about setting ET tube in a way so the pt can speak while on Ventilator. pt was satisfied with the settings without compromising ventilation.She requested anti acid for stomach discomfort and was given prn liquid PO. No new issues. Pt seems happy. Psychotropics: Xanax 0.5 mgs bid has really done well to settle her anxiety. no side effects seen. She does not do well on lower titration of anxiety meds. No new issues. Plan: Current treatment as well as ventilator settings reviewed and continued.
[2024-05-30] MEDS: HYDRO PO (21:11)
[2024-05-30] MEDS: ACET PO (21:11)
[2024-05-31] VITALS (13 sets, daily range): BP systolic 105–133; BP diastolic 65–75; PULSE 55–84; RESP 14–27; TEMP 36.3–36.6; O2SAT 98–100
[2024-05-31] MEDS: IPRATROPIUM/ALBUTEROL 3 ML AMPUL.NEB INH ×6 (02:00→22:44)
[2024-05-31] MEDS: BUDESONIDE 0.5 MG/2 ML AMPUL.NEB INH ×2 (07:40→18:40)
[2024-05-31 08:09] LABS: Basophils % (Auto) 0 % (0-2.5); Eosinophils # (Auto) 0.3 Thou/mm3 (0.0-0.5); Eosinophils % (Auto) 4 % (0-10); Hematocrit 28.3 % (36.0-46.0); Immature Granulocytes % (Auto) 0 % (0-0); Immature Granulocytes Auto 0.03 Thou/mm3 (0.00-0.00); Lymphocytes # (Auto) 1.8 Thou/mm3 (1.0-4.8); Lymphocytes % (Auto) 20 % (10-50); Mean Corpuscular Hemoglobin 30.2 pg (25.0-35.0); Mean Corpuscular Volume 101 fL (80-100); Monocytes # (Auto) 0.8 Thou/mm3 (0.0-0.8); Monocytes % (Auto) 9 % (0-12); Neutrophils # (Auto) 6.1 Thou/mm3 (1.8-7.7); Neutrophils % (Auto) 67 % (37-80); Nucleated Red Blood Cell % 0 /100 WBC (0); Platelet Count 319 Thou/mm3 (140-440); RDW Standard Deviation 62.1 fL (36.4-46.3); Red Blood Count 2.81 Miln/mm3 (4.00-5.20)
[2024-05-31 08:17] LABS: Hemoglobin 8.5 g/dL (12.0-16.0)
[2024-05-31] MEDS: guaiFENesin Liq 100 MG/5 ML LIQUID PO ×3 (09:50→23:50)
[2024-05-31] MEDS: ACETAMINOPHEN 325 MG TABLET 650 MG PO (09:50)
[2024-05-31] MEDS: ALPRAZolam 0.5 MG TABLET PO ×2 (09:54→20:15)
[2024-05-31] MEDS: MULTIVITAMIN 1 TAB TABLET PO (09:55)
[2024-05-31] MEDS: ASCORBIC ACID 500 MG TABLET PO ×2 (09:55→20:15)
[2024-05-31] MEDS: FAMOTIDINE 20 MG TABLET PO ×2 (09:55→20:16)
[2024-05-31] MEDS: AMIODARONE 200 MG TABLET PO (09:55)
[2024-05-31] MEDS: VITAMIN B COMPLEX PO (09:56)
[2024-05-31] MEDS: SENNOSIDES 8.6 MG TABLET PO ×2 (09:56→20:16)
[2024-05-31] MEDS: MIDODRINE 10 MG TABLET PO ×3 (11:32→23:39)
[2024-05-31] MEDS: HYDRO PO (15:32)
[2024-05-31] MEDS: ACET PO (15:32)
[2024-06-01] VITALS (13 sets, daily range): BP systolic 116–146; BP diastolic 63–73; PULSE 62–86; RESP 15–26; TEMP 36.2–36.4; O2SAT 96–100
[2024-06-01] MEDS: HYDRO PO ×3 (01:27→22:10)
[2024-06-01] MEDS: ACET PO ×3 (01:27→22:10)
[2024-06-01] MEDS: IPRATROPIUM/ALBUTEROL 3 ML AMPUL.NEB INH ×6 (02:15→22:20)
[2024-06-01] MEDS: MAG HYDROX/ALUMINUM HYD/SIMETH 355 ML BTL 30 ML PO (02:50)
[2024-06-01] MEDS: BUDESONIDE 0.5 MG/2 ML AMPUL.NEB INH ×2 (06:57→18:05)
[2024-06-01] MEDS: ALPRAZolam 0.5 MG TABLET PO ×2 (09:11→20:25)
[2024-06-01] MEDS: AMIODARONE 200 MG TABLET PO (09:12)
[2024-06-01] MEDS: SENNOSIDES 8.6 MG TABLET PO ×2 (09:13→20:26)
[2024-06-01] MEDS: MULTIVITAMIN 1 TAB TABLET PO (09:13)
[2024-06-01] MEDS: VITAMIN B COMPLEX PO (09:13)
[2024-06-01] MEDS: ASCORBIC ACID 500 MG TABLET PO ×2 (09:13→20:25)
[2024-06-01] MEDS: FAMOTIDINE 20 MG TABLET PO ×2 (09:13→20:25)
[2024-06-01] MEDS: MIDODRINE 10 MG TABLET PO ×2 (12:25→18:07)
[2024-06-01] MEDS: guaiFENesin Liq 100 MG/5 ML LIQUID PO (18:08)
[2024-06-02] VITALS (14 sets, daily range): BP systolic 105–157; BP diastolic 60–83; PULSE 61–81; RESP 14–26; TEMP 36.3–36.6; O2SAT 96–99
[2024-06-02] MEDS: IPRATROPIUM/ALBUTEROL 3 ML AMPUL.NEB INH ×6 (02:16→23:00)
[2024-06-02] MEDS: ACETAMINOPHEN 325 MG TABLET 650 MG PO (05:09)
[2024-06-02] MEDS: MIDODRINE 10 MG TABLET PO ×3 (05:09→12:17)
[2024-06-02] MEDS: BUDESONIDE 0.5 MG/2 ML AMPUL.NEB INH ×2 (07:22→19:10)
[2024-06-02] MEDS: ALPRAZolam 0.5 MG TABLET PO ×2 (08:23→20:18)
[2024-06-02] MEDS: SENNOSIDES 8.6 MG TABLET PO ×2 (08:26→20:20)
[2024-06-02] MEDS: MULTIVITAMIN 1 TAB TABLET PO (08:26)
[2024-06-02] MEDS: AMIODARONE 200 MG TABLET PO (08:26)
[2024-06-02] MEDS: VITAMIN B COMPLEX PO (08:26)
[2024-06-02] MEDS: ASCORBIC ACID 500 MG TABLET PO ×2 (08:26→20:20)
[2024-06-02] MEDS: FAMOTIDINE 20 MG TABLET PO ×2 (08:26→20:20)
[2024-06-02] MEDS: guaiFENesin Liq 100 MG/5 ML LIQUID PO ×3 (08:27→17:20)
--- NOTE | 2024-06-02 13:55 | PC.SS ---
Room visit: Resident is laying in bed with head of the bed elevated with call light properly placed with no signs of distress. Resident is well groomed not showing any changes in mood and behavior, she enjoys room visits and enjoys engaging in conversation. Resident remains on vent with trach in place and GT for medications. Resident will remain in current care and will continue to have all subacute care needs met by staff.
[2024-06-02] MEDS: HYDRO PO ×2 (14:02→22:10)
[2024-06-02] MEDS: ACET PO ×2 (14:02→22:10)
--- NOTE | 2024-06-02 16:08 | PC.SS ---
This SSD spoke with resident regarding concerns she had. Resident stated she is feeling more anxious today which is affecting her breathing, she had concerns regarding who her SELLING SPECIALIST was as the board in her room was not updated, this SSD spoke with her SELLING SPECIALIST and informed her the board had not been undated and needed to be. Resident was informed of who her care team was and was assured the charge nurse would be notified. This SSD notified charge nurse of resident concerns.
--- NOTE | 2024-06-02 22:29 | PC.NURSE ---
patient called 3 times and was attended right away, she requested for RT because of shortness of breath and breathing treatment, the nurse called RT multiple times and no answer. charge nurse is made aware.
[2024-06-03] VITALS (11 sets, daily range): BP systolic 118–128; BP diastolic 60–75; PULSE 65–84; RESP 14–26; TEMP 36.4–36.7; O2SAT 98–100
[2024-06-03] MEDS: ACETAMINOPHEN 325 MG TABLET 650 MG PO (01:30)
[2024-06-03] MEDS: guaiFENesin Liq 100 MG/5 ML LIQUID PO ×2 (01:30→20:48)
[2024-06-03] MEDS: IPRATROPIUM/ALBUTEROL 3 ML AMPUL.NEB INH ×6 (02:00→23:00)
[2024-06-03] MEDS: MIDODRINE 10 MG TABLET PO (05:18)
[2024-06-03] MEDS: BUDESONIDE 0.5 MG/2 ML AMPUL.NEB INH ×2 (06:05→19:10)
[2024-06-03] MEDS: ALPRAZolam 0.5 MG TABLET PO ×2 (09:04→20:42)
[2024-06-03] MEDS: AMIODARONE 200 MG TABLET PO (09:04)
[2024-06-03] MEDS: MULTIVITAMIN 1 TAB TABLET PO (09:07)
[2024-06-03] MEDS: FAMOTIDINE 20 MG TABLET PO ×2 (09:07→20:43)
[2024-06-03] MEDS: VITAMIN B COMPLEX PO (09:07)
[2024-06-03] MEDS: SENNOSIDES 8.6 MG TABLET PO ×2 (09:07→20:45)
[2024-06-03] MEDS: ASCORBIC ACID 500 MG TABLET PO ×2 (09:07→20:43)
[2024-06-03] MEDS: ACET PO (17:00)
[2024-06-03] MEDS: HYDRO PO (17:00)
--- NOTE | 2024-06-03 21:15 | PD.SAPROG ---
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 (2) Chronic respiratory failure with hypoxia and hypercapnia: Status: Chronic (3) Ventilator dependent: Status: Chronic (4) Congestive heart failure: Status: Chronic (5) Chronic obstructive pulmonary disease, unspecified: Status: Chronic (6) Atrial fibrillation: Status: Chronic (7) Tracheostomy in place: Status: Chronic (8) Chronic anemia: Status: Chronic SUBJECTIVE Fever:: none GI:: none Shortness of Breath:: unchanged GI:: nausea Pain:: none OBJECTIVE Most recent vital signs: Last Vital Signs Temp 97.0 F 06/06/24 06:00 Pulse 69 06/06/24 10:30 Resp 15 06/06/24 10:30 BP 100/61 06/06/24 08:18 Pulse Ox 98 06/06/24 10:30 O2 Del Method Mechanical Ventilation 06/06/24 06:00 FiO2 50 06/06/24 10:30 Neurological:: alert Speech:: nods head, mouths words and appropriate Answers questions:: yes Respiratory:: shallow breathing and rhonchi Cardiovascular: irregular Abdomen: soft Tracheostomy:: to ventilator Feeding per:: po ASSESSMENT & PLAN Assessment: stable. Tolerating ventilatory support. Not weanable because of generalized weakness. Tolerating feeding. Prognosis is very guarded. Patient aware. Family kept aware as well. Discussed with pt this week about setting ET tube in a way so the pt can speak while on Ventilator. pt was satisfied with the settings without compromising ventilation.She requested anti acid for stomach discomfort and was given prn liquid PO. No new issues. Pt seems happy. Psychotropics: Xanax 0.5 mgs bid has really done well to settle her anxiety. no side effects seen. She does not do well on lower titration of anxiety meds. No new issues. Plan: Current treatment as well as ventilator settings reviewed and continued.
[2024-06-04] VITALS (11 sets, daily range): BP systolic 109–146; BP diastolic 60–81; PULSE 65–94; RESP 14–22; TEMP 36.2–36.3; O2SAT 97–99
[2024-06-04] MEDS: HYDRO PO ×3 (01:00→18:30)
[2024-06-04] MEDS: ACET PO ×3 (01:00→18:30)
[2024-06-04] MEDS: IPRATROPIUM/ALBUTEROL 3 ML AMPUL.NEB INH ×6 (02:51→22:05)
[2024-06-04] MEDS: guaiFENesin Liq 100 MG/5 ML LIQUID PO ×2 (03:00→12:00)
[2024-06-04] MEDS: ACETAMINOPHEN 325 MG TABLET 650 MG PO ×2 (05:05→14:45)
[2024-06-04] MEDS: MIDODRINE 10 MG TABLET PO ×3 (05:06→18:54)
[2024-06-04] MEDS: BUDESONIDE 0.5 MG/2 ML AMPUL.NEB INH ×2 (06:15→19:10)
[2024-06-04] MEDS: ALPRAZolam 0.5 MG TABLET PO ×2 (09:12→20:00)
[2024-06-04] MEDS: AMIODARONE 200 MG TABLET PO (09:12)
[2024-06-04] MEDS: ASCORBIC ACID 500 MG TABLET PO ×2 (09:13→20:00)
[2024-06-04] MEDS: FAMOTIDINE 20 MG TABLET PO ×2 (09:14→20:01)
[2024-06-04] MEDS: MULTIVITAMIN 1 TAB TABLET PO (09:14)
[2024-06-04] MEDS: VITAMIN B COMPLEX PO (09:14)
[2024-06-04] MEDS: SENNOSIDES 8.6 MG TABLET PO ×2 (09:14→20:01)
[2024-06-05] VITALS (13 sets, daily range): BP systolic 89–144; BP diastolic 60–73; PULSE 63–102; RESP 14–20; TEMP 35.7–36.3; O2SAT 97–100
[2024-06-05] MEDS: MIDODRINE 10 MG TABLET PO ×5 (00:24→23:15)
[2024-06-05] MEDS: IPRATROPIUM/ALBUTEROL 3 ML AMPUL.NEB INH ×6 (02:10→22:44)
[2024-06-05] MEDS: ALPRAZolam 0.5 MG TABLET GT (04:35)
[2024-06-05] MEDS: BUDESONIDE 0.5 MG/2 ML AMPUL.NEB INH ×2 (06:10→18:37)
--- NOTE | 2024-06-05 06:55 | PC.NURSE ---
Resident called frequently last night with complaints of shortness of breath, RT was called, cuff was inflated with air, O2 saturation was 99% on 35% FiO2. At approximately 0330 was called into room by staff, resident was diaphoretic, having difficulty breathing, stating she was trying to exercise, O2 saturation was 84%. RT increased FiO2 to 50% at this time, resident was respositioned in bed, increased to sitting upright. O2 saturation increased to 99%, Xanax 0.5 mg was given. Staff sat with resident until breathing was within normal limits and resident fell asleep.
[2024-06-05] MEDS: ASCORBIC ACID 500 MG TABLET PO ×2 (09:20→20:07)
[2024-06-05] MEDS: SENNOSIDES 8.6 MG TABLET PO ×2 (09:20→20:08)
[2024-06-05] MEDS: ALPRAZolam 0.5 MG TABLET PO ×2 (09:20→20:07)
[2024-06-05] MEDS: VITAMIN B COMPLEX PO (09:20)
[2024-06-05] MEDS: FAMOTIDINE 20 MG TABLET PO ×2 (09:20→20:07)
[2024-06-05] MEDS: MULTIVITAMIN 1 TAB TABLET PO (09:20)
[2024-06-05] MEDS: ONDANSETRON HCL 4 MG TABLET PO (10:24)
[2024-06-05] MEDS: ACETAMINOPHEN 325 MG TABLET 650 MG PO (17:15)
[2024-06-05] MEDS: guaiFENesin Liq 100 MG/5 ML LIQUID PO (17:16)
[2024-06-05] MEDS: ACET PO (20:09)
[2024-06-05] MEDS: HYDRO PO (20:09)
--- NOTE | 2024-06-05 20:13 | PC.NURSE ---
Resident having complaints of shortness of breath at this time, trach cuff is inflated, O2 saturation is 99% on 40% FiO2, BP 185/63, HR 99, T 97.6, routine breathing treatment was already administered by RT. Dr Salazar was notified with new order to start on Mucomyst 10% four times a day to help with thicker secretions and administer Xanax. Call light is within reach, encouraged resident to call.
[2024-06-05] MEDS: ACETYLCYSTEINE 10% 3 ML VIAL INH (22:44)
[2024-06-06] VITALS (14 sets, daily range): BP systolic 98–147; BP diastolic 56–84; PULSE 61–96; RESP 14–18; TEMP 36.1–37.8; O2SAT 94–100
[2024-06-06] MEDS: IPRATROPIUM/ALBUTEROL 3 ML AMPUL.NEB INH ×6 (02:28→23:10)
[2024-06-06] MEDS: ONDANSETRON HCL 4 MG TABLET PO (06:09)
[2024-06-06] MEDS: BUDESONIDE 0.5 MG/2 ML AMPUL.NEB INH ×2 (06:28→18:47)
[2024-06-06 06:51] LABS: Basophils # (Auto) 0.1 Thou/mm3 (0.0-0.2); Basophils % (Auto) 0 % (0-2.5); Eosinophils % (Auto) 0 % (0-10); Hematocrit 30.6 % (36.0-46.0); Immature Granulocytes % (Auto) 2 % (0-0); Immature Granulocytes Auto 0.48 Thou/mm3 (0.00-0.00); Lymphocytes # (Auto) 1.2 Thou/mm3 (1.0-4.8); Lymphocytes % (Auto) 5 % (10-50); Mean Corpuscular HGB Conc 28.8 g/dl (31.0-37.0); Mean Corpuscular Hemoglobin 30.4 pg (25.0-35.0); Mean Corpuscular Volume 106 fL (80-100); Monocytes # (Auto) 1.6 Thou/mm3 (0.0-0.8); Monocytes % (Auto) 6 % (0-12); Neutrophils # (Auto) 23.6 Thou/mm3 (1.8-7.7); Neutrophils % (Auto) 87 % (37-80); Nucleated Red Blood Cell % 0 /100 WBC (0); Platelet Count 260 Thou/mm3 (140-440); RDW Standard Deviation 67.8 fL (36.4-46.3); Red Blood Count 2.89 Miln/mm3 (4.00-5.20); White Blood Count 27.1 Thou/mm3 (3.6-11.0)
[2024-06-06 07:00] LABS: Hemoglobin 8.8 g/dL (12.0-16.0)
[2024-06-06] MEDS: FAMOTIDINE 20 MG TABLET PO ×2 (08:20→20:22)
[2024-06-06] MEDS: ALPRAZolam 0.5 MG TABLET PO ×2 (08:20→20:22)
[2024-06-06] MEDS: ACETYLCYSTEINE 10% 3 ML VIAL INH ×3 (08:22→18:47)
[2024-06-06] MEDS: HYDRO PO (09:30)
[2024-06-06] MEDS: ACET PO (09:30)
--- NOTE | 2024-06-06 10:41 | PC.NURSE ---
Addendum entered by Janeth Maurice RN 06/06/24 12:46: Procalcitonin results back. Call MD to notify. New order for abt. Levaquin 500mg PO x 5 days. and x1 dose of Xanax. Will carry out new order. Original Note: Notified MD regarding CBC lab results. WBC out of range (27.1). Resident remains A febrile. Although stated not feeling well vital signs WNL. Doctor has ordered Procalcitonin level to R/O infection process. Will carryout new order. Will continue to order.
[2024-06-06 10:48] LABS: Procalcitonin 1.56 ng/ml (0.0-0.49)
[2024-06-06] MEDS: MIDODRINE 10 MG TABLET PO (12:30)
[2024-06-06] MEDS: ALPRAZolam 0.5 MG TABLET GT (13:00)
[2024-06-06] MEDS: AMOXICILLIN/POTASSIUM CLAV 1 EACH TABLET PO (16:00)
--- NOTE | 2024-06-06 16:03 | PC.NURSE ---
Resident remain restless stating it is hard to breath . Resident is saturating 96%, vital signs remain stable 97.3 89,32,98/56. Resident started antibiotic therapy (Augmentin) for elevation of WBC 27.1 and procalcitonin 1.56. first dose given. Will continue to monitor.
[2024-06-06] MEDS: SENNOSIDES 8.6 MG TABLET PO (20:22)
[2024-06-06] MEDS: ASCORBIC ACID 500 MG TABLET PO (20:22)
[2024-06-07] VITALS (12 sets, daily range): BP systolic 93–157; BP diastolic 58–75; PULSE 55–101; RESP 14–26; TEMP 36.7–37.8; O2SAT 95–100
[2024-06-07] MEDS: ACETAMINOPHEN 325 MG TABLET 650 MG PO ×2 (02:20→12:00)
--- NOTE | 2024-06-07 02:32 | PC.NURSE ---
Resident is alert on abt therapy started first dose today during am shift. Resident took meds without any problems and able to make needs known. Spot check temp taken rectally and temp was 99.1. O2 sats are96%, tolerating vent settings. Tylenol given for discomfort at this time. No adverse reactions noted to abt therapy. Will continue to monitor.
[2024-06-07] MEDS: ACETYLCYSTEINE 10% 3 ML VIAL INH ×4 (03:15→18:40)
[2024-06-07] MEDS: IPRATROPIUM/ALBUTEROL 3 ML AMPUL.NEB INH ×6 (03:15→22:13)
[2024-06-07] MEDS: MIDODRINE 10 MG TABLET PO ×4 (05:21→18:37)
[2024-06-07] MEDS: AMOXICILLIN/POTASSIUM CLAV 1 EACH TABLET PO ×2 (05:23→18:37)
[2024-06-07] MEDS: BUDESONIDE 0.5 MG/2 ML AMPUL.NEB INH ×2 (06:59→18:40)
[2024-06-07] MEDS: AMIODARONE 200 MG TABLET PO (08:59)
[2024-06-07] MEDS: ASCORBIC ACID 500 MG TABLET PO ×2 (09:00→20:09)
[2024-06-07] MEDS: FAMOTIDINE 20 MG TABLET PO ×2 (09:00→20:09)
[2024-06-07] MEDS: MULTIVITAMIN 1 TAB TABLET PO (09:04)
[2024-06-07] MEDS: VITAMIN B COMPLEX PO (09:06)
[2024-06-07] MEDS: SENNOSIDES 8.6 MG TABLET PO (09:06)
[2024-06-07] MEDS: guaiFENesin Liq 100 MG/5 ML LIQUID PO ×2 (12:00→20:09)
--- NOTE | 2024-06-07 16:17 | PC.NURSE ---
Resident continues on abt therapy. Today Ms Blakely has been asleep for most part of the day. Refusing meals due to feeling tired. Offered Ensure x2. Resident is awake at this time in good spirits. She stated feeling better. no respiratory distress noted. Stated Is hungry requested food from kitchen. Vital signs remain stable. No adverse reactions noted from antibiotic therapy. Res. will have CBC done tomorrow morning.Family has been updated ass well.
--- NOTE | 2024-06-07 16:57 | PC.NURSE ---
Resident was scheduled for shower today but refused x3 attempts stating she did not feel well and wanted to rest. DETASSELER in charge of care and RN made aware. Wound care provided. Call light in reach. Will continue with current plan of care.
--- NOTE | 2024-06-07 18:37 | PD.SAPROG ---
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 (2) Chronic respiratory failure with hypoxia and hypercapnia: Status: Chronic (3) Ventilator dependent: Status: Chronic (4) Congestive heart failure: Status: Chronic (5) Chronic obstructive pulmonary disease, unspecified: Status: Chronic (6) Atrial fibrillation: Status: Chronic (7) Tracheostomy in place: Status: Chronic (8) Chronic anemia: Status: Chronic SUBJECTIVE Fever:: none GI:: none Shortness of Breath:: unchanged GI:: nausea Pain:: none OBJECTIVE Most recent vital signs: Last Vital Signs Temp 98.7 F 06/07/24 18:00 Pulse 101 H 06/07/24 18:00 Resp 22 H 06/07/24 18:00 BP 112/70 06/07/24 18:00 Pulse Ox 99 06/07/24 18:00 O2 Del Method Mechanical Ventilation 06/07/24 18:00 FiO2 50 06/07/24 13:58 Neurological:: alert Speech:: nods head, mouths words and appropriate Answers questions:: yes Respiratory:: shallow breathing and rhonchi Cardiovascular: irregular Abdomen: soft Tracheostomy:: to ventilator Feeding per:: po ASSESSMENT & PLAN Assessment: stable. Tolerating ventilatory support. Not weanable because of generalized weakness. Tolerating feeding. Prognosis is very guarded. Patient aware. Family kept aware as well. Discussed with pt this week about setting ET tube in a way so the pt can speak while on Ventilator. pt was satisfied with the settings without compromising ventilation.She requested anti acid for stomach discomfort and was given prn liquid PO. 06/05/24, She was having respiratory stress, settled with anxiety meds, but got a cbc next morning and TLC was elevated sig. without any sig. immature cells and so started empirical Augmenten with plan to repeat CBC in two days to monitor trends. Pt seems happy. Psychotropics: Xanax 0.5 mgs bid has really done well to settle her anxiety. no side effects seen. She does not do well on lower titration of anxiety meds. No new issues. Plan: Current treatment as well as ventilator settings reviewed and continued.
[2024-06-07] MEDS: ALPRAZolam 0.5 MG TABLET PO (20:07)
[2024-06-07] MEDS: LOPERAMIDE HCL 1 MG/7.5 ML LIQUID 2 MG GT (23:06)
[2024-06-07] MEDS: ACET PO (23:14)
[2024-06-07] MEDS: HYDRO PO (23:14)
[2024-06-08] VITALS (13 sets, daily range): BP systolic 97–138; BP diastolic 63–80; PULSE 71–131; RESP 17–28; TEMP 36.2–36.6; O2SAT 86–100
[2024-06-08] MEDS: guaiFENesin Liq 100 MG/5 ML LIQUID PO ×2 (01:52→20:54)
[2024-06-08] MEDS: IPRATROPIUM/ALBUTEROL 3 ML AMPUL.NEB INH ×5 (02:00→22:05)
[2024-06-08] MEDS: MIDODRINE 10 MG TABLET PO ×4 (05:00→18:00)
[2024-06-08] MEDS: AMOXICILLIN/POTASSIUM CLAV 1 EACH TABLET PO ×2 (05:00→18:00)
[2024-06-08] MEDS: BUDESONIDE 0.5 MG/2 ML AMPUL.NEB INH ×2 (06:52→18:25)
[2024-06-08 07:36] LABS: Basophils % (Auto) 0 % (0-2.5); Eosinophils # (Auto) 0.2 Thou/mm3 (0.0-0.5); Eosinophils % (Auto) 1 % (0-10); Hematocrit 27.2 % (36.0-46.0); Immature Granulocytes % (Auto) 0 % (0-0); Immature Granulocytes Auto 0.06 Thou/mm3 (0.00-0.00); Lymphocytes # (Auto) 1.9 Thou/mm3 (1.0-4.8); Lymphocytes % (Auto) 13 % (10-50); Mean Corpuscular HGB Conc 28.3 g/dl (31.0-37.0); Mean Corpuscular Hemoglobin 29.8 pg (25.0-35.0); Mean Corpuscular Volume 105 fL (80-100); Monocytes # (Auto) 1.3 Thou/mm3 (0.0-0.8); Monocytes % (Auto) 9 % (0-12); Neutrophils # (Auto) 11.4 Thou/mm3 (1.8-7.7); Neutrophils % (Auto) 77 % (37-80); Nucleated Red Blood Cell % 0 /100 WBC (0); Platelet Count 215 Thou/mm3 (140-440); RDW Standard Deviation 65.2 fL (36.4-46.3); Red Blood Count 2.58 Miln/mm3 (4.00-5.20); White Blood Count 14.8 Thou/mm3 (3.6-11.0)
[2024-06-08 08:09] LABS: Hemoglobin 7.7 g/dL (12.0-16.0)
--- NOTE | 2024-06-08 08:35 | PC.NURSE ---
Follow up CBC was drawn today, WBC noted to be 14.8. Currently on Augmentin no adverse reaction noted. Resident in bed, asleep at this time. On mechanical ventilator. No s/s of respiratory distress noted. Called Dr Salazar and verbally reported result. No new orders made at this time, resident to complete Augmentin x 7 days as ordered per MD.
--- NOTE | 2024-06-08 08:46 | PC.IP ---
On 06/07/[address] Salazar regarding resident and continued malaise, elevations in Procalcitonin and CBC/WBC's pf 1.56 and 27.1, respectively. CBC order for draw today 06/08/24 and if downward trend, will remain on Amox/Potassium Clav.(Augmentin) x 7 days. Reviewed resident's C & S results historically and Piperacillin/Tazobactam shows effectiveness against all previous culture results; exception to H.influinzae. CBC drawn this morning shows CBC/WBC's at 14.8. Resident was resting quietly with eyes closed when observed during my rounds.
[2024-06-08] MEDS: AMIODARONE 200 MG TABLET PO (09:45)
[2024-06-08] MEDS: ASCORBIC ACID 500 MG TABLET PO ×2 (09:45→20:52)
[2024-06-08] MEDS: MULTIVITAMIN 1 TAB TABLET PO (09:45)
[2024-06-08] MEDS: FAMOTIDINE 20 MG TABLET PO ×2 (09:45→20:52)
[2024-06-08] MEDS: VITAMIN B COMPLEX PO (09:50)
[2024-06-08] MEDS: SENNOSIDES 8.6 MG TABLET PO ×2 (09:50→20:52)
--- NOTE | 2024-06-08 10:06 | PC.NURSE ---
PATIENT FOUND DISCONNECTED FROM VENT. RESP RATE INCREASED AND DIAPHORETIC. RECONNECTED AND GIVEN O2 BOOST. RESP THERAPIST CALLED. O2 SAT 87%, HR 130 S. PATIENT REASSURED AND ASKED TO TRY TO SLOW DOWN BREATHING AND CALM DOWN. FACE WIPED WITH MOIST TOWEL. PILLOW REPOSITIONED TO PROTECT HEAD FROM RAILING SINCE SHE IS LEANING TOWARD THE LEFT. FIO2 INCREASED TO 100% PER RESP THERAPIST AND REMAINED AT BEDSIDE UNTIL HR BELOW 100. 02 SAT INCREASED PROMPTLY TO 98%
[2024-06-08] MEDS: ACET PO (16:45)
[2024-06-08] MEDS: HYDRO PO (16:45)
[2024-06-08] MEDS: LOPERAMIDE HCL 1 MG/7.5 ML LIQUID 2 MG GT (18:30)
--- NOTE | 2024-06-08 19:36 | PC.NURSE ---
Resident continues to be on abt therapy. Noted to have loose stools x2 on nocs and x2 on day shift. Immodium given x1. Tolerated. Resident awake and able to make needs known. Denies any pain. Fluids encouraged. Will continue to monitor.
[2024-06-09] VITALS (11 sets, daily range): BP systolic 94–164; BP diastolic 58–73; PULSE 60–103; RESP 14–22; TEMP 36.3–36.9; O2SAT 97–100
[2024-06-09] MEDS: MIDODRINE 10 MG TABLET PO ×5 (00:10→23:12)
[2024-06-09] MEDS: IPRATROPIUM/ALBUTEROL 3 ML AMPUL.NEB INH ×6 (02:05→22:04)
[2024-06-09] MEDS: ALPRAZolam 0.5 MG TABLET PO ×2 (03:17→11:50)
[2024-06-09] MEDS: ACET PO ×2 (03:46→11:50)
[2024-06-09] MEDS: HYDRO PO ×2 (03:46→11:50)
[2024-06-09] MEDS: AMOXICILLIN/POTASSIUM CLAV 1 EACH TABLET PO ×2 (05:30→17:59)
[2024-06-09] MEDS: BUDESONIDE 0.5 MG/2 ML AMPUL.NEB INH ×2 (07:10→18:00)
[2024-06-09] MEDS: AMIODARONE 200 MG TABLET PO (09:00)
[2024-06-09] MEDS: FAMOTIDINE 20 MG TABLET PO ×2 (09:00→20:39)
[2024-06-09] MEDS: ASCORBIC ACID 500 MG TABLET PO ×2 (09:00→20:39)
[2024-06-09] MEDS: MULTIVITAMIN 1 TAB TABLET PO (09:00)
[2024-06-09] MEDS: VITAMIN B COMPLEX PO (09:01)
[2024-06-09] MEDS: SENNOSIDES 8.6 MG TABLET PO ×2 (09:01→20:39)
[2024-06-09 16:46] LABS: Basophils % (Auto) 0 % (0-2.5); Eosinophils # (Auto) 0.3 Thou/mm3 (0.0-0.5); Eosinophils % (Auto) 2 % (0-10); Immature Granulocytes % (Auto) 0 % (0-0); Immature Granulocytes Auto 0.04 Thou/mm3 (0.00-0.00); Lymphocytes # (Auto) 2.5 Thou/mm3 (1.0-4.8); Lymphocytes % (Auto) 18 % (10-50); Mean Corpuscular Hemoglobin 30.6 pg (25.0-35.0); Mean Corpuscular Volume 106 fL (80-100); Monocytes # (Auto) 1.2 Thou/mm3 (0.0-0.8); Monocytes % (Auto) 9 % (0-12); Neutrophils # (Auto) 9.8 Thou/mm3 (1.8-7.7); Neutrophils % (Auto) 71 % (37-80); Nucleated Red Blood Cell % 0 /100 WBC (0); Platelet Count 291 Thou/mm3 (140-440); RDW Standard Deviation 65.8 fL (36.4-46.3); Red Blood Count 2.84 Miln/mm3 (4.00-5.20); White Blood Count 13.8 Thou/mm3 (3.6-11.0)
[2024-06-09 16:50] LABS: Hemoglobin 8.7 g/dL (12.0-16.0)
--- NOTE | 2024-06-09 16:50 | XR_ITS ---
Examination: AP chest single view Technique one AP portable semiupright chest single view Exam date and time: June 09, 2024 1717 hrs. Comparison February 21, 2024 Indications: Hypoxia, chronic respiratory failure diagnosis Findings: COPD with severe hyperexpansion Bullous change at the right apex again noted Bilateral interstitial disease, more severe in the left lung compared to the prior study Tracheostomy tube tip 7.3 cm above ayaan Impression: COPD with severe hyperexpansion Bilateral interstitial disease, especially diffusely in the left lung consistent with pneumonia
[2024-06-09 17:02] LABS: Alanine Aminotransferase 34 U/L (10-49); Albumin/Globulin Ratio 1.2 (1.2-2.2); Alkaline Phosphatase 125 U/L (46-116); Anion Gap 7 (7-16); Aspartate Amino Transferase 26 U/L (0-34); BUN/Creatinine Ratio 20 Ratio (12-20); Bilirubin,Total 0.2 mg/dL (0.3-1.2); Blood Urea Nitrogen 12 mg/dL (9-23); Calcium 9.3 mg/dL (8.3-10.6); Calcium (Corrected) 9.3 mg/dL (8.5-10.1); Carbon Dioxide 33.8 mMol/L (20.0-31.0); Chloride 95 mMol/L (98-107); Creatinine (Component) 0.6 mg/dL (0.6-1.3); Globulin 3.3 gm/dL (2.3-3.5); Glucose 168 mg/dL (74-106); Osmolality,Calculated 275 (275-295); Potassium 4.4 mMol/L (3.4-5.1); Procalcitonin 0.61 ng/ml (0.0-0.49); Sodium 136 mMol/L (136-145); Total Protein 7.3 gm/dL (5.7-8.2); eGFR > 60 See Note
--- NOTE | 2024-06-09 17:06 | PC.NURSE ---
Called for code blue at 1556. Resident noted to be pale and unresponsive, unable to obtain any pulse and no saturation. Started bagging resident and slowly started to have heart rate and saturation when code blue came in and awake. B/P was taken 120/60, 70. Dr Sloan ER doctor ordered to do labs in the unit, and no order to transfer in ER. Called Dr Salazar and made aware of the above incident with new lab orders. Called resident's son Francisco Javier at 1701 and updated him about the resident. Resident noted to be fully awake at this time, alert and responsive and unable to remember of the above incident.
[2024-06-09 17:18] LABS: B-Type Natriuretic Peptide 298 pg/mL (0-100)
[2024-06-09 18:41] LABS: COVID-19 Antigen (In-House) Negative (Negative); Influenza A Ag Negative; Influenza B Ag Negative
[2024-06-09] MEDS: guaiFENesin Liq 100 MG/5 ML LIQUID PO (20:44)
[2024-06-10] VITALS (13 sets, daily range): BP systolic 95–116; BP diastolic 52–74; PULSE 67–91; RESP 14–20; TEMP 36.3–36.4; O2SAT 97–100
[2024-06-10] MEDS: IPRATROPIUM/ALBUTEROL 3 ML AMPUL.NEB INH ×6 (02:03→22:00)
[2024-06-10] MEDS: ACETAMINOPHEN 325 MG TABLET 650 MG PO (04:13)
[2024-06-10 04:18] LABS: Collection Type, Urine Catheter; Squamous Epithelial Cell,Urine 0 /hpf (0-5)
[2024-06-10 04:41] LABS: Bilirubin,Urine Negative (Negative); Blood,Urine 2+ (Negative); Clarity,Urine Turbid (Clear/Hazy); Color,Urine Drk-Yellow (Lt Yel-Yel); Glucose, Urine Negative (Negative); Hyaline Casts,Urine < 1 /hpf (0-1); Ketones,Urine Trace (Negative); Leukocyte Esterase,Urine Positive (Negative); Nitrite,Urine Negative (Negative); Protein,Urine 3+ (Neg - Trace); RBC,Urine 19 /hpf (0-3); Specific Gravity,Urine 1.025 (1.001-1.035); WBC,Urine 29 /hpf (0-5)
[2024-06-10] MEDS: AMOXICILLIN/POTASSIUM CLAV 1 EACH TABLET PO ×2 (05:16→17:25)
[2024-06-10] MEDS: MIDODRINE 10 MG TABLET PO ×4 (05:17→23:49)
[2024-06-10] MEDS: BUDESONIDE 0.5 MG/2 ML AMPUL.NEB INH ×2 (06:13→20:15)
--- NOTE | 2024-06-10 08:40 | PC.NURSE ---
Addendum entered by Mini Espinosa RN 06/10/24 08:50: Resident's son Francisco Javier came in to visit and updated him about the resident and results Original Note: Spoke with Dr Salazar and verbally reported resident's chest x-ray result and previously chest x-ray result. Currently on Augmentin PGT. No new orders made at this time. Continue on Augmentin as ordered per MD. Resident alert and verbally responsive. Denies any pain or discomfort at this time.
[2024-06-10] MEDS: AMIODARONE 200 MG TABLET PO (09:07)
[2024-06-10] MEDS: FAMOTIDINE 20 MG TABLET PO ×2 (09:08→20:02)
[2024-06-10] MEDS: SENNOSIDES 8.6 MG TABLET PO ×2 (09:08→20:03)
[2024-06-10] MEDS: ASCORBIC ACID 500 MG TABLET PO ×2 (09:08→20:02)
[2024-06-10] MEDS: MULTIVITAMIN 1 TAB TABLET PO (09:08)
[2024-06-10] MEDS: VITAMIN B COMPLEX PO (09:08)
[2024-06-10] MEDS: guaiFENesin Liq 100 MG/5 ML LIQUID PO ×2 (10:00→17:30)
[2024-06-10] MEDS: HYDRO PO ×2 (12:49→21:57)
[2024-06-10] MEDS: ACET PO ×2 (12:49→21:57)
[2024-06-10] MEDS: ALPRAZolam 0.5 MG TABLET PO (19:59)
[2024-06-10] MEDS: ONDANSETRON HCL 4 MG TABLET PO (21:50)
--- NOTE | 2024-06-10 23:07 | PC.NURSE ---
Resident is alert and oriented x4. Continues on abt therapy. Tolerating well. No adverse reactions noted. afebrile. Will continue to monitor.
[2024-06-11] VITALS (12 sets, daily range): BP systolic 95–118; BP diastolic 61–69; PULSE 63–91; RESP 14–18; TEMP 36.3–36.7; O2SAT 97–99
[2024-06-11] MEDS: IPRATROPIUM/ALBUTEROL 3 ML AMPUL.NEB INH ×5 (02:00→19:25)
[2024-06-11] MEDS: MIDODRINE 10 MG TABLET PO ×3 (05:18→17:33)
[2024-06-11] MEDS: AMOXICILLIN/POTASSIUM CLAV 1 EACH TABLET PO ×2 (05:18→17:33)
[2024-06-11] MEDS: ACETAMINOPHEN 325 MG TABLET 650 MG PO ×2 (06:17→23:43)
[2024-06-11] MEDS: BUDESONIDE 0.5 MG/2 ML AMPUL.NEB INH ×2 (07:10→19:25)
[2024-06-11] MEDS: AMIODARONE 200 MG TABLET PO (08:45)
[2024-06-11] MEDS: ASCORBIC ACID 500 MG TABLET PO ×2 (08:49→20:01)
[2024-06-11] MEDS: MULTIVITAMIN 1 TAB TABLET PO (08:50)
[2024-06-11] MEDS: FAMOTIDINE 20 MG TABLET PO ×2 (08:50→20:01)
[2024-06-11] MEDS: SENNOSIDES 8.6 MG TABLET PO ×2 (08:50→20:01)
[2024-06-11] MEDS: VITAMIN B COMPLEX PO (09:15)
[2024-06-11] MEDS: guaiFENesin Liq 100 MG/5 ML LIQUID PO ×3 (10:00→23:07)
--- NOTE | 2024-06-11 10:14 | PC.IP ---
IP Note: Continues on Augmentin twice daily for diffuse Left Lung PNA per CXR; this morning was somnolent, respirations quiet and even, skin cool, dry, pale. No noted febrile episodes. Son visited yesterday and resident was cheerful but having episodes of closing eyes and appearing to need more rest. All staff will continue to monitor for any changes in condition.
--- NOTE | 2024-06-11 13:15 | PD.SAPROG ---
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 (2) Chronic respiratory failure with hypoxia and hypercapnia: Status: Chronic (3) Ventilator dependent: Status: Chronic (4) Congestive heart failure: Status: Chronic (5) Chronic obstructive pulmonary disease, unspecified: Status: Chronic (6) Atrial fibrillation: Status: Chronic (7) Tracheostomy in place: Status: Chronic (8) Chronic anemia: Status: Chronic SUBJECTIVE Fever:: none GI:: none Shortness of Breath:: unchanged GI:: nausea Pain:: none OBJECTIVE Most recent vital signs: Last Vital Signs Temp 97.8 F 06/12/24 18:00 Pulse 84 06/12/24 18:50 Resp 15 06/12/24 18:50 BP 117/65 06/12/24 18:00 Pulse Ox 98 06/12/24 18:50 O2 Del Method Mechanical Ventilation 06/12/24 18:00 FiO2 40 06/12/24 18:50 Neurological:: alert Speech:: nods head, mouths words and appropriate Answers questions:: yes Respiratory:: shallow breathing and rhonchi Cardiovascular: irregular Abdomen: soft Tracheostomy:: to ventilator Feeding per:: po ASSESSMENT & PLAN Assessment: stable. Tolerating ventilatory support. Not weanable because of generalized weakness. Tolerating feeding. Prognosis is very guarded. Patient aware. Family kept aware as well. Discussed with pt this week about setting ET tube in a way so the pt can speak while on Ventilator. pt was satisfied with the settings without compromising ventilation.She requested anti acid for stomach discomfort and was given prn liquid PO. 06/05/24, She was having respiratory stress, settled with anxiety meds, but got a cbc next morning and TLC was elevated sig. without any sig. immature cells and so started empirical Augmenten with plan to repeat CBC in two days to monitor trends. Pt seems happy. Cell counts improved,afebrile, now having some loose stools and given imodium with improvement, Fluid supplements to prevent dehydration. Psychotropics: Xanax 0.5 mgs bid has really done well to settle her anxiety. no side effects seen. She does not do well on lower titration of anxiety meds. No new issues. Plan: Current treatment as well as ventilator settings reviewed and continued.
[2024-06-11] MEDS: ALPRAZolam 0.5 MG TABLET PO (20:02)
[2024-06-11] MEDS: LOPERAMIDE HCL 1 MG/7.5 ML LIQUID GT (21:50)
[2024-06-12] VITALS (13 sets, daily range): BP systolic 110–125; BP diastolic 59–67; PULSE 60–88; RESP 14–17; TEMP 36.2–36.8; O2SAT 95–100
[2024-06-12] MEDS: IPRATROPIUM/ALBUTEROL 3 ML AMPUL.NEB INH ×7 (02:05→22:00)
[2024-06-12] MEDS: HYDRO PO (04:15)
[2024-06-12] MEDS: ACET PO (04:15)
[2024-06-12] MEDS: AMOXICILLIN/POTASSIUM CLAV 1 EACH TABLET PO ×2 (06:00→17:03)
[2024-06-12] MEDS: MIDODRINE 10 MG TABLET PO ×4 (06:00→23:22)
[2024-06-12] MEDS: BUDESONIDE 0.5 MG/2 ML AMPUL.NEB INH ×2 (07:30→18:50)
[2024-06-12] MEDS: ASCORBIC ACID 500 MG TABLET PO ×2 (08:16→20:35)
[2024-06-12] MEDS: AMIODARONE 200 MG TABLET PO (08:16)
[2024-06-12] MEDS: MULTIVITAMIN 1 TAB TABLET PO (08:17)
[2024-06-12] MEDS: FAMOTIDINE 20 MG TABLET PO ×2 (08:17→20:36)
[2024-06-12] MEDS: VITAMIN B COMPLEX PO (08:18)
[2024-06-12] MEDS: guaiFENesin Liq 100 MG/5 ML LIQUID PO (08:18)
[2024-06-12] MEDS: LOPERAMIDE HCL 1 MG/7.5 ML LIQUID GT ×2 (08:20→17:41)
[2024-06-12] MEDS: ACETAMINOPHEN 325 MG TABLET 650 MG PO ×2 (11:43→17:41)
--- NOTE | 2024-06-12 13:24 | PC.NURSE ---
Received culture final results. Urine culture without any grow. Blood culture no grow noted. Gram stain respiratory (sputum) with 3 different microorganisms. one Kliesiella oxytoca is sensitive to current abt Augmentin. 2 other are not. Notified MD of results MD stated is colonized. further order for CBC to be drawn tomorrow 06/13/24 and call MD with results. Resident remains a febrile at this time. Istolerating abt well no A/R noted. Informed resident of current plan of care. Resident verbalized understanding.
--- NOTE | 2024-06-12 19:04 | PC.NURSE ---
Resident continues on ABT for elevated WBC, micro report came back and bacteria was identified, Charge nurse notified MD no new orders obtained, current plan of care ongoing.
[2024-06-12] MEDS: ALPRAZolam 0.5 MG TABLET PO (21:05)
[2024-06-13] VITALS (12 sets, daily range): BP systolic 111–116; BP diastolic 51–70; PULSE 55–92; RESP 14–20; TEMP 36.2–36.4; O2SAT 97–99
[2024-06-13] MEDS: guaiFENesin Liq 100 MG/5 ML LIQUID PO ×2 (01:25→20:13)
[2024-06-13] MEDS: IPRATROPIUM/ALBUTEROL 3 ML AMPUL.NEB INH ×6 (02:00→22:00)
[2024-06-13] MEDS: ACET PO (04:20)
[2024-06-13] MEDS: HYDRO PO (04:20)
[2024-06-13] MEDS: LOPERAMIDE HCL 1 MG/7.5 ML LIQUID GT ×2 (04:20→16:00)
[2024-06-13] MEDS: MIDODRINE 10 MG TABLET PO ×4 (05:15→23:34)
[2024-06-13] MEDS: AMOXICILLIN/POTASSIUM CLAV 1 EACH TABLET PO (05:15)
[2024-06-13] MEDS: BUDESONIDE 0.5 MG/2 ML AMPUL.NEB INH ×2 (06:46→19:00)
[2024-06-13] MEDS: AMIODARONE 200 MG TABLET PO (08:51)
[2024-06-13] MEDS: FAMOTIDINE 20 MG TABLET PO ×2 (08:52→20:12)
[2024-06-13] MEDS: ASCORBIC ACID 500 MG TABLET PO ×2 (08:52→20:12)
[2024-06-13] MEDS: MULTIVITAMIN 1 TAB TABLET PO (08:52)
[2024-06-13] MEDS: VITAMIN B COMPLEX PO (08:53)
[2024-06-13] MEDS: ALPRAZolam 0.5 MG TABLET PO ×2 (09:00→20:12)
[2024-06-13 09:33] LABS: Basophils % (Auto) 0 % (0-2.5); Eosinophils # (Auto) 0.4 Thou/mm3 (0.0-0.5); Eosinophils % (Auto) 4 % (0-10); Hematocrit 24.6 % (36.0-46.0); Immature Granulocytes % (Auto) 0 % (0-0); Immature Granulocytes Auto 0.04 Thou/mm3 (0.00-0.00); Lymphocytes # (Auto) 1.4 Thou/mm3 (1.0-4.8); Lymphocytes % (Auto) 14 % (10-50); Mean Corpuscular HGB Conc 29.3 g/dl (31.0-37.0); Mean Corpuscular Hemoglobin 30.4 pg (25.0-35.0); Mean Corpuscular Volume 104 fL (80-100); Monocytes # (Auto) 1.1 Thou/mm3 (0.0-0.8); Monocytes % (Auto) 11 % (0-12); Neutrophils # (Auto) 7.3 Thou/mm3 (1.8-7.7); Neutrophils % (Auto) 72 % (37-80); Nucleated Red Blood Cell % 0 /100 WBC (0); Platelet Count 250 Thou/mm3 (140-440); RDW Standard Deviation 62.3 fL (36.4-46.3); Red Blood Count 2.37 Miln/mm3 (4.00-5.20); White Blood Count 10.2 Thou/mm3 (3.6-11.0)
[2024-06-13 09:36] LABS: Hemoglobin 7.2 g/dL (12.0-16.0)
--- NOTE | 2024-06-13 13:22 | PC.NURSE ---
Resident completed antibiotic therapy. without adverse reactions. Reviewed CBC (todays blood drawn) results over the phone. No further orders given. No complaints offered from resident. Will continue to monitor.
[2024-06-14] VITALS (12 sets, daily range): BP systolic 93–130; BP diastolic 55–75; PULSE 57–79; RESP 14–25; TEMP 36.2–36.4; O2SAT 98–100
[2024-06-14] MEDS: IPRATROPIUM/ALBUTEROL 3 ML AMPUL.NEB INH ×5 (02:00→22:17)
[2024-06-14] MEDS: BUDESONIDE 0.5 MG/2 ML AMPUL.NEB INH (05:05)
[2024-06-14] MEDS: AMIODARONE 200 MG TABLET PO (08:55)
[2024-06-14] MEDS: ASCORBIC ACID 500 MG TABLET PO ×2 (08:56→20:19)
[2024-06-14] MEDS: FAMOTIDINE 20 MG TABLET PO ×2 (08:57→20:19)
[2024-06-14] MEDS: MULTIVITAMIN 1 TAB TABLET PO (08:57)
[2024-06-14] MEDS: VITAMIN B COMPLEX PO (08:58)
[2024-06-14] MEDS: ALPRAZolam 0.5 MG TABLET PO ×2 (09:00→20:18)
[2024-06-14] MEDS: guaiFENesin Liq 100 MG/5 ML LIQUID PO ×3 (10:00→22:00)
[2024-06-14] MEDS: MIDODRINE 10 MG TABLET PO (14:06)
--- NOTE | 2024-06-14 14:33 | PC.SS ---
Resident seen by corporation secretary/Dr. Jaeger, she had toe nails trimmed with no new orders or recommendations she will continue current care.
--- NOTE | 2024-06-14 17:27 | PC.NURSE ---
Placed a consult for possible trach revision for resident as per MD order. RT unable to retrieving trach during monthly change. Consult placed fax paper work to doctor's office, place consult on [facility] Reviewed, Called Dr. Egan to his personal cell and left message. New order for Miconazole for c/o and suspected vaginal yeast infection as resident c/o itchiness. resident recently completed abt therapy for upper respiratory infection and PNA carried out order. patient notified.
[2024-06-14] MEDS: ACETAMINOPHEN 325 MG TABLET 650 MG PO (19:14)
[2024-06-15] VITALS (12 sets, daily range): BP systolic 113–130; BP diastolic 65–78; PULSE 65–80; RESP 14–21; TEMP 36.1–36.4; O2SAT 97–99
[2024-06-15] MEDS: IPRATROPIUM/ALBUTEROL 3 ML AMPUL.NEB INH ×6 (02:21→22:27)
[2024-06-15] MEDS: LOPERAMIDE HCL 1 MG/7.5 ML LIQUID GT (03:10)
[2024-06-15] MEDS: ALPRAZolam 0.5 MG TABLET PO ×2 (04:15→17:35)
[2024-06-15] MEDS: guaiFENesin Liq 100 MG/5 ML LIQUID PO ×3 (04:15→20:40)
[2024-06-15] MEDS: MIDODRINE 10 MG TABLET PO ×2 (05:17→17:06)
[2024-06-15] MEDS: BUDESONIDE 0.5 MG/2 ML AMPUL.NEB INH ×2 (07:00→18:00)
[2024-06-15] MEDS: FAMOTIDINE 20 MG TABLET PO ×2 (08:32→20:44)
[2024-06-15] MEDS: AMIODARONE 200 MG TABLET PO (08:32)
[2024-06-15] MEDS: ASCORBIC ACID 500 MG TABLET PO ×2 (08:32→20:44)
[2024-06-15] MEDS: VITAMIN B COMPLEX PO (08:33)
[2024-06-15] MEDS: MULTIVITAMIN 1 TAB TABLET PO (08:33)
--- NOTE | 2024-06-15 13:05 | PD.SAPROG ---
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 (2) Chronic respiratory failure with hypoxia and hypercapnia: Status: Chronic (3) Ventilator dependent: Status: Chronic (4) Congestive heart failure: Status: Chronic (5) Chronic obstructive pulmonary disease, unspecified: Status: Chronic (6) Atrial fibrillation: Status: Chronic (7) Tracheostomy in place: Status: Chronic (8) Chronic anemia: Status: Chronic SUBJECTIVE Fever:: none GI:: none Shortness of Breath:: unchanged GI:: nausea Pain:: none OBJECTIVE Most recent vital signs: Last Vital Signs Temp 97.5 F 06/19/24 17:27 Pulse 74 06/19/24 18:00 Resp 18 06/19/24 18:00 BP 152/76 H 06/19/24 17:27 Pulse Ox 98 06/19/24 18:00 O2 Del Method Mechanical Ventilation 06/16/24 17:53 FiO2 40 06/19/24 18:00 Neurological:: alert Speech:: nods head, mouths words and appropriate Answers questions:: yes Respiratory:: shallow breathing and rhonchi Cardiovascular: irregular Abdomen: soft Tracheostomy:: to ventilator Feeding per:: po ASSESSMENT & PLAN Assessment: stable. Tolerating ventilatory support. Not weanable because of generalized weakness. Tolerating feeding. Prognosis is very guarded. Patient aware. Family kept aware as well. Discussed with pt this week about setting ET tube in a way so the pt can speak while on Ventilator. pt was satisfied with the settings without compromising ventilation.She requested anti acid for stomach discomfort and was given prn liquid PO. 06/05/24, She was having respiratory stress, settled with anxiety meds, but got a cbc next morning and TLC was elevated sig. without any sig. immature cells and so started empirical Augmenten with plan to repeat CBC in two days to monitor trends. Pt seems happy. Cell counts improved,afebrile, now having some loose stools and given imodium with improvement, Fluid supplements to prevent dehydration. Psychotropics: Xanax 0.5 mgs bid has really done well to settle her anxiety. no side effects seen. She does not do well on lower titration of anxiety meds. No new issues. Plan: Current treatment as well as ventilator settings reviewed and continued.
[2024-06-15] MEDS: ACETAMINOPHEN 325 MG TABLET 650 MG PO ×2 (15:04→23:38)
[2024-06-15] MEDS: ACET PO (20:40)
[2024-06-15] MEDS: HYDRO PO (20:40)
[2024-06-15] MEDS: SENNOSIDES 8.6 MG TABLET PO (20:44)
[2024-06-15] MEDS: NON-FORMULARY *SEE COMMENTS* 1 EA EA VAGINAL (20:44)
[2024-06-16] VITALS (13 sets, daily range): BP systolic 101–136; BP diastolic 60–87; PULSE 70–91; RESP 20–24; TEMP 36.2; O2SAT 93–100
[2024-06-16] MEDS: IPRATROPIUM/ALBUTEROL 3 ML AMPUL.NEB INH ×6 (02:28→22:01)
[2024-06-16] MEDS: BUDESONIDE 0.5 MG/2 ML AMPUL.NEB INH ×2 (06:55→18:34)
[2024-06-16] MEDS: AMIODARONE 200 MG TABLET PO (08:48)
[2024-06-16] MEDS: SENNOSIDES 8.6 MG TABLET PO (08:48)
[2024-06-16] MEDS: VITAMIN B COMPLEX PO (08:49)
[2024-06-16] MEDS: MULTIVITAMIN 1 TAB TABLET PO (08:49)
[2024-06-16] MEDS: ASCORBIC ACID 500 MG TABLET PO ×2 (08:49→20:29)
[2024-06-16] MEDS: FAMOTIDINE 20 MG TABLET PO ×2 (08:49→20:29)
[2024-06-16] MEDS: guaiFENesin Liq 100 MG/5 ML LIQUID PO ×2 (10:28→17:37)
[2024-06-16] MEDS: LOPERAMIDE HCL 1 MG/7.5 ML LIQUID GT (10:29)
[2024-06-16] MEDS: ALPRAZolam 0.5 MG TABLET PO ×2 (12:16→20:29)
[2024-06-16] MEDS: DEX/HYPRO/GLY ARTIFICAL TEARS 225 DROP/15 ML BTL BOTH EYES (20:00)
[2024-06-16] MEDS: NON-FORMULARY *SEE COMMENTS* 1 EA EA VAGINAL (20:31)
[2024-06-17] VITALS (12 sets, daily range): BP systolic 101–154; BP diastolic 61–68; PULSE 62–81; RESP 15–26; TEMP 36.3–36.5; O2SAT 94–100
[2024-06-17] MEDS: MIDODRINE 10 MG TABLET PO
[2024-06-17] MEDS: guaiFENesin Liq 100 MG/5 ML LIQUID PO ×4 (00:10→20:13)
[2024-06-17] MEDS: IPRATROPIUM/ALBUTEROL 3 ML AMPUL.NEB INH ×6 (02:05→22:27)
[2024-06-17] MEDS: ACETAMINOPHEN 325 MG TABLET 650 MG PO (07:14)
[2024-06-17] MEDS: SENNOSIDES 8.6 MG TABLET PO ×2 (08:16→20:15)
[2024-06-17] MEDS: DEX/HYPRO/GLY ARTIFICAL TEARS 225 DROP/15 ML BTL BOTH EYES ×2 (08:16→20:15)
[2024-06-17] MEDS: MULTIVITAMIN 1 TAB TABLET PO (08:17)
[2024-06-17] MEDS: FAMOTIDINE 20 MG TABLET PO ×2 (08:17→20:15)
[2024-06-17] MEDS: ASCORBIC ACID 500 MG TABLET PO ×2 (08:17→20:15)
[2024-06-17] MEDS: VITAMIN B COMPLEX PO (08:17)
[2024-06-17] MEDS: AMIODARONE 200 MG TABLET PO (08:17)
[2024-06-17] MEDS: HYDRO PO ×2 (10:30→19:50)
[2024-06-17] MEDS: ACET PO ×2 (10:30→19:50)
[2024-06-17] MEDS: ALPRAZolam 0.5 MG TABLET PO ×2 (13:36→21:40)
[2024-06-17] MEDS: NON-FORMULARY *SEE COMMENTS* 1 EA EA VAGINAL (20:16)
[2024-06-18] VITALS (11 sets, daily range): BP systolic 93–153; BP diastolic 71–74; PULSE 60–109; RESP 14–21; TEMP 36.2–36.4; O2SAT 95–100
[2024-06-18] MEDS: MIDODRINE 10 MG TABLET PO ×3 (00:55→23:45)
[2024-06-18] MEDS: IPRATROPIUM/ALBUTEROL 3 ML AMPUL.NEB INH ×6 (02:19→22:12)
[2024-06-18] MEDS: ACET PO ×2 (04:00→14:30)
[2024-06-18] MEDS: HYDRO PO ×2 (04:00→14:30)
[2024-06-18] MEDS: BUDESONIDE 0.5 MG/2 ML AMPUL.NEB INH ×2 (07:10→18:08)
[2024-06-18] MEDS: VITAMIN B COMPLEX PO (09:15)
[2024-06-18] MEDS: MULTIVITAMIN 1 TAB TABLET PO (09:15)
[2024-06-18] MEDS: ASCORBIC ACID 500 MG TABLET PO ×2 (09:15→20:44)
[2024-06-18] MEDS: DEX/HYPRO/GLY ARTIFICAL TEARS 225 DROP/15 ML BTL BOTH EYES ×2 (09:15→20:44)
[2024-06-18] MEDS: AMIODARONE 200 MG TABLET PO (09:15)
[2024-06-18] MEDS: ALPRAZolam 0.5 MG TABLET PO ×2 (09:30→18:00)
[2024-06-18] MEDS: FAMOTIDINE 20 MG TABLET PO ×2 (09:35→20:44)
[2024-06-18] MEDS: SENNOSIDES 8.6 MG TABLET PO ×2 (09:36→20:43)
[2024-06-18] MEDS: guaiFENesin Liq 100 MG/5 ML LIQUID PO (18:50)
[2024-06-18] MEDS: NON-FORMULARY *SEE COMMENTS* 1 EA EA VAGINAL (20:44)
[2024-06-19] VITALS (12 sets, daily range): BP systolic 109–152; BP diastolic 59–76; PULSE 62–83; RESP 14–20; TEMP 36.3–36.5; O2SAT 96–100
[2024-06-19] MEDS: ACETAMINOPHEN 325 MG TABLET 650 MG PO ×2 (00:38→17:20)
[2024-06-19] MEDS: IPRATROPIUM/ALBUTEROL 3 ML AMPUL.NEB INH ×6 (02:22→22:00)
[2024-06-19] MEDS: BUDESONIDE 0.5 MG/2 ML AMPUL.NEB INH ×2 (06:47→18:00)
[2024-06-19] MEDS: guaiFENesin Liq 100 MG/5 ML LIQUID PO (08:39)
[2024-06-19] MEDS: AMIODARONE 200 MG TABLET PO (08:52)
[2024-06-19] MEDS: ASCORBIC ACID 500 MG TABLET PO ×2 (08:52→21:15)
[2024-06-19] MEDS: SENNOSIDES 8.6 MG TABLET PO (08:52)
[2024-06-19] MEDS: VITAMIN B COMPLEX PO (08:53)
[2024-06-19] MEDS: FAMOTIDINE 20 MG TABLET PO ×2 (08:53→21:30)
[2024-06-19] MEDS: DEX/HYPRO/GLY ARTIFICAL TEARS 225 DROP/15 ML BTL BOTH EYES ×2 (08:53→21:30)
[2024-06-19] MEDS: MULTIVITAMIN 1 TAB TABLET PO (08:53)
[2024-06-19] MEDS: CARBAMIDE PEROXIDE OTIC SOL 15 ML BTL 5 DROP BOTH EARS ×2 (08:53→21:30)
[2024-06-19] MEDS: ALPRAZolam 0.5 MG TABLET PO ×2 (09:16→21:00)
[2024-06-19] MEDS: HYDRO PO ×2 (11:38→23:04)
[2024-06-19] MEDS: ACET PO ×2 (11:38→23:04)
[2024-06-20] VITALS (14 sets, daily range): BP systolic 92–149; BP diastolic 53–70; PULSE 66–88; RESP 14–18; TEMP 36.2–36.5; O2SAT 97–99
[2024-06-20] MEDS: MIDODRINE 10 MG TABLET PO ×2 (00:15→05:25)
[2024-06-20] MEDS: IPRATROPIUM/ALBUTEROL 3 ML AMPUL.NEB INH ×7 (02:10→23:24)
[2024-06-20] MEDS: NON-FORMULARY *SEE COMMENTS* 1 EA EA VAGINAL ×2 (04:00→20:25)
[2024-06-20] MEDS: BUDESONIDE 0.5 MG/2 ML AMPUL.NEB INH ×2 (06:36→19:55)
[2024-06-20] MEDS: SENNOSIDES 8.6 MG TABLET PO ×2 (08:43→20:15)
[2024-06-20] MEDS: DEX/HYPRO/GLY ARTIFICAL TEARS 225 DROP/15 ML BTL BOTH EYES ×2 (08:55→20:24)
[2024-06-20] MEDS: FAMOTIDINE 20 MG TABLET PO ×2 (08:55→20:24)
[2024-06-20] MEDS: MULTIVITAMIN 1 TAB TABLET PO (08:55)
[2024-06-20] MEDS: AMIODARONE 200 MG TABLET PO (08:55)
[2024-06-20] MEDS: VITAMIN B COMPLEX PO (08:55)
[2024-06-20] MEDS: CARBAMIDE PEROXIDE OTIC SOL 15 ML BTL 5 DROP BOTH EARS ×2 (08:55→20:24)
[2024-06-20] MEDS: ASCORBIC ACID 500 MG TABLET PO ×2 (08:55→20:24)
[2024-06-20] MEDS: ALPRAZolam 0.5 MG TABLET PO ×2 (08:55→20:23)
[2024-06-20] MEDS: guaiFENesin Liq 100 MG/5 ML LIQUID PO (13:02)
[2024-06-20] MEDS: ACET PO (15:00)
[2024-06-20] MEDS: HYDRO PO (15:00)
--- NOTE | 2024-06-20 16:32 | PC.RT ---
Patient complaining of sob even after duoneb tx's, heart rate and spo2 are good. Per dr paz give patient a one time tx and if not better have nurse call dr to talk about anxiety medication. Nurse Liz last.
[2024-06-21] VITALS (12 sets, daily range): BP systolic 97–130; BP diastolic 63–77; PULSE 62–85; RESP 14–22; TEMP 36.1–36.8; O2SAT 98–100
[2024-06-21] MEDS: ACET PO ×3 (00:29→23:50)
[2024-06-21] MEDS: HYDRO PO ×3 (00:29→23:50)
[2024-06-21] MEDS: IPRATROPIUM/ALBUTEROL 3 ML AMPUL.NEB INH ×6 (02:00→22:00)
[2024-06-21] MEDS: MIDODRINE 10 MG TABLET PO ×2 (05:29→12:00)
[2024-06-21] MEDS: ACETAMINOPHEN 325 MG TABLET 650 MG PO (05:29)
[2024-06-21] MEDS: BUDESONIDE 0.5 MG/2 ML AMPUL.NEB INH ×2 (06:48→19:20)
[2024-06-21] MEDS: SENNOSIDES 8.6 MG TABLET PO ×2 (09:33→20:53)
[2024-06-21] MEDS: ALPRAZolam 0.5 MG TABLET PO ×2 (09:33→20:00)
[2024-06-21] MEDS: ASCORBIC ACID 500 MG TABLET PO ×2 (09:34→20:53)
[2024-06-21] MEDS: AMIODARONE 200 MG TABLET PO (09:34)
[2024-06-21] MEDS: FAMOTIDINE 20 MG TABLET PO ×2 (09:35→20:54)
[2024-06-21] MEDS: DEX/HYPRO/GLY ARTIFICAL TEARS 225 DROP/15 ML BTL BOTH EYES ×2 (09:35→20:54)
[2024-06-21] MEDS: MULTIVITAMIN 1 TAB TABLET PO (09:36)
[2024-06-21] MEDS: guaiFENesin Liq 100 MG/5 ML LIQUID PO (09:36)
[2024-06-21] MEDS: VITAMIN B COMPLEX PO (09:36)
--- NOTE | 2024-06-21 13:19 | PC.NURSE ---
Called Dr. Egan regarding recent consultation for trach revision. left a voicemail. Also called his office to confirming of consultation. Spoke to Rachel, Stated Dr. Egan is aware of consultation. He will see resident in the following days.
[2024-06-21] MEDS: CARBAMIDE PEROXIDE OTIC SOL 15 ML BTL 5 DROP BOTH EARS (20:53)
[2024-06-21] MEDS: NON-FORMULARY *SEE COMMENTS* 1 EA EA VAGINAL (20:54)
[2024-06-22] VITALS (14 sets, daily range): BP systolic 103–152; BP diastolic 61–83; PULSE 60–87; RESP 14–16; TEMP 36–36.3; O2SAT 94–100
[2024-06-22] MEDS: IPRATROPIUM/ALBUTEROL 3 ML AMPUL.NEB INH ×6 (02:19→22:00)
[2024-06-22] MEDS: ALPRAZolam 0.5 MG TABLET PO ×3 (04:06→20:28)
[2024-06-22] MEDS: BUDESONIDE 0.5 MG/2 ML AMPUL.NEB INH ×2 (07:30→23:25)
[2024-06-22] MEDS: ASCORBIC ACID 500 MG TABLET PO ×2 (09:52→20:28)
[2024-06-22] MEDS: VITAMIN B COMPLEX PO (09:54)
[2024-06-22] MEDS: FAMOTIDINE 20 MG TABLET PO ×2 (09:54→20:29)
[2024-06-22] MEDS: CARBAMIDE PEROXIDE OTIC SOL 15 ML BTL 5 DROP BOTH EARS ×2 (09:54→20:29)
[2024-06-22] MEDS: MULTIVITAMIN 1 TAB TABLET PO (09:54)
[2024-06-22] MEDS: DEX/HYPRO/GLY ARTIFICAL TEARS 225 DROP/15 ML BTL BOTH EYES ×2 (09:54→20:46)
[2024-06-22] MEDS: HYDRO PO (11:30)
[2024-06-22] MEDS: ACET PO (11:30)
[2024-06-22] MEDS: MIDODRINE 10 MG TABLET PO ×2 (18:41)
[2024-06-22] MEDS: ACETAMINOPHEN 325 MG TABLET 650 MG PO (19:25)
[2024-06-22] MEDS: guaiFENesin Liq 100 MG/5 ML LIQUID PO (19:45)
[2024-06-22] MEDS: SENNOSIDES 8.6 MG TABLET PO (20:28)
[2024-06-23] VITALS (11 sets, daily range): BP systolic 90–148; BP diastolic 58–76; PULSE 52–81; RESP 14–16; TEMP 36.2–36.4; O2SAT 98–100
[2024-06-23] MEDS: MIDODRINE 10 MG TABLET PO ×3 (00:31→18:10)
[2024-06-23] MEDS: HYDRO PO ×3 (00:31→21:05)
[2024-06-23] MEDS: ACET PO ×3 (00:31→21:05)
[2024-06-23] MEDS: ACETAMINOPHEN 325 MG TABLET 650 MG PO ×2 (03:21→14:39)
[2024-06-23] MEDS: ALPRAZolam 0.5 MG TABLET PO ×2 (05:39→19:10)
[2024-06-23] MEDS: IPRATROPIUM/ALBUTEROL 3 ML AMPUL.NEB INH ×5 (06:12→22:10)
[2024-06-23] MEDS: BUDESONIDE 0.5 MG/2 ML AMPUL.NEB INH ×2 (06:12→18:30)
[2024-06-23] MEDS: DEX/HYPRO/GLY ARTIFICAL TEARS 225 DROP/15 ML BTL BOTH EYES ×2 (08:52→20:27)
[2024-06-23] MEDS: ASCORBIC ACID 500 MG TABLET PO ×2 (08:52→20:27)
[2024-06-23] MEDS: FAMOTIDINE 20 MG TABLET PO ×2 (08:52→20:27)
[2024-06-23] MEDS: MULTIVITAMIN 1 TAB TABLET PO (08:52)
[2024-06-23] MEDS: SENNOSIDES 8.6 MG TABLET PO ×2 (08:53→20:27)
[2024-06-23] MEDS: VITAMIN B COMPLEX PO (08:53)
[2024-06-23] MEDS: guaiFENesin Liq 100 MG/5 ML LIQUID PO (20:26)
--- NOTE | 2024-06-23 21:10 | PD.SAPROG ---
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 (2) Chronic respiratory failure with hypoxia and hypercapnia: Status: Chronic (3) Ventilator dependent: Status: Chronic (4) Congestive heart failure: Status: Chronic (5) Chronic obstructive pulmonary disease, unspecified: Status: Chronic (6) Atrial fibrillation: Status: Chronic (7) Tracheostomy in place: Status: Chronic (8) Chronic anemia: Status: Chronic SUBJECTIVE Fever:: none GI:: none Shortness of Breath:: unchanged GI:: nausea Pain:: none OBJECTIVE Most recent vital signs: Last Vital Signs Temp 97.5 F 06/24/24 17:03 Pulse 74 06/24/24 17:03 Resp 14 06/24/24 17:03 BP 122/69 06/24/24 17:03 Pulse Ox 97 06/24/24 17:03 O2 Del Method Mechanical Ventilation 06/23/24 17:47 FiO2 40 06/24/24 14:00 Neurological:: alert Speech:: nods head, mouths words and appropriate Answers questions:: yes Respiratory:: shallow breathing and rhonchi Cardiovascular: irregular Abdomen: soft Tracheostomy:: to ventilator Feeding per:: po ASSESSMENT & PLAN Assessment: stable. Tolerating ventilatory support. Not weanable because of generalized weakness. Tolerating feeding. Prognosis is very guarded. Patient aware. Family kept aware as well. Discussed with pt this week about setting ET tube in a way so the pt can speak while on Ventilator. pt was satisfied with the settings without compromising ventilation.She requested anti acid for stomach discomfort and was given prn liquid PO. 06/05/24, She was having respiratory stress, settled with anxiety meds, but got a cbc next morning and TLC was elevated sig. without any sig. immature cells and so started empirical Augmenten with plan to repeat CBC in two days to monitor trends. Pt seems happy. Cell counts improved,afebrile, now having some loose stools and given imodium with improvement, Fluid supplements to prevent dehydration. Psychotropics: Xanax 0.5 mgs bid has really done well to settle her anxiety. no side effects seen. She does not do well on lower titration of anxiety meds. No new issues. Plan: Current treatment as well as ventilator settings reviewed and continued.
[2024-06-24] VITALS (13 sets, daily range): BP systolic 96–122; BP diastolic 58–75; PULSE 62–82; RESP 14–21; TEMP 36.1–36.4; O2SAT 97–99
[2024-06-24] MEDS: MIDODRINE 10 MG TABLET PO ×5 (00:05→23:36)
[2024-06-24] MEDS: IPRATROPIUM/ALBUTEROL 3 ML AMPUL.NEB INH ×6 (02:00→22:00)
[2024-06-24] MEDS: ALPRAZolam 0.5 MG TABLET PO ×2 (03:36→15:00)
--- NOTE | 2024-06-24 03:53 | PC.NURSE ---
Resident contact center representative light frequently today. Resident unable to get comfortable complains of sob. 02 sats 97% hr 88. Resident anxious. xanax given at 1900 and 0330. Rt called multiple times to check patient.
[2024-06-24] MEDS: BUDESONIDE 0.5 MG/2 ML AMPUL.NEB INH ×2 (07:05→18:50)
[2024-06-24] MEDS: ACET PO ×2 (08:15→16:15)
[2024-06-24] MEDS: HYDRO PO ×2 (08:15→16:15)
[2024-06-24] MEDS: AMIODARONE 200 MG TABLET PO (09:25)
[2024-06-24] MEDS: ASCORBIC ACID 500 MG TABLET PO ×2 (09:26→20:55)
[2024-06-24] MEDS: MULTIVITAMIN 1 TAB TABLET PO (09:26)
[2024-06-24] MEDS: DEX/HYPRO/GLY ARTIFICAL TEARS 225 DROP/15 ML BTL BOTH EYES ×2 (09:26→20:55)
[2024-06-24] MEDS: FAMOTIDINE 20 MG TABLET PO ×2 (09:26→20:55)
[2024-06-24] MEDS: VITAMIN B COMPLEX PO (09:27)
--- NOTE | 2024-06-24 14:41 | PC.SS ---
Room visit: Resident is seen laying in bed with head of the bed elevated and call light properly placed with no signs of distress. Resident remains on ventilator with trach in place and GT for medication and nutrition. Resident appears to be sleeping more, her son comes in to visit her at bedside weekly. Resident will remain in current care and will continue to have all subacute care needs met by staff. This SSD will continue to make daily contact with resident and offer support as needed.
[2024-06-24] MEDS: guaiFENesin Liq 100 MG/5 ML LIQUID PO ×2 (16:15→23:40)
[2024-06-24] MEDS: ACETAMINOPHEN 325 MG TABLET 650 MG PO (20:57)
[2024-06-25] VITALS (12 sets, daily range): BP systolic 104–152; BP diastolic 64–76; PULSE 65–85; RESP 14–25; TEMP 36.1–36.7; O2SAT 96–99
[2024-06-25] MEDS: ACET PO ×3 (00:30→20:28)
[2024-06-25] MEDS: HYDRO PO ×3 (00:30→20:28)
[2024-06-25] MEDS: IPRATROPIUM/ALBUTEROL 3 ML AMPUL.NEB INH ×6 (02:00→22:00)
[2024-06-25] MEDS: ALPRAZolam 0.5 MG TABLET PO ×2 (03:35→15:15)
[2024-06-25] MEDS: BUDESONIDE 0.5 MG/2 ML AMPUL.NEB INH ×2 (06:12→18:50)
[2024-06-25] MEDS: guaiFENesin Liq 100 MG/5 ML LIQUID PO ×3 (08:46→23:45)
[2024-06-25] MEDS: FAMOTIDINE 20 MG TABLET PO ×2 (08:49→20:25)
[2024-06-25] MEDS: DEX/HYPRO/GLY ARTIFICAL TEARS 225 DROP/15 ML BTL BOTH EYES ×2 (08:49→20:25)
[2024-06-25] MEDS: ASCORBIC ACID 500 MG TABLET PO ×2 (08:49→20:25)
[2024-06-25] MEDS: AMIODARONE 200 MG TABLET PO (08:49)
[2024-06-25] MEDS: VITAMIN B COMPLEX PO (08:50)
[2024-06-25] MEDS: SENNOSIDES 8.6 MG TABLET PO ×2 (08:50→20:28)
[2024-06-25] MEDS: MULTIVITAMIN 1 TAB TABLET PO (08:50)
[2024-06-25] MEDS: ACETAMINOPHEN 325 MG TABLET 650 MG PO ×2 (15:00→23:45)
[2024-06-25] MEDS: MIDODRINE 10 MG TABLET PO (18:00)
[2024-06-26] VITALS (12 sets, daily range): BP systolic 104–142; BP diastolic 55–78; PULSE 54–88; RESP 14–20; TEMP 36.1–36.4; O2SAT 96–99
[2024-06-26] MEDS: MIDODRINE 10 MG TABLET PO ×3 (00:30→11:52)
[2024-06-26] MEDS: IPRATROPIUM/ALBUTEROL 3 ML AMPUL.NEB INH ×6 (03:53→22:00)
[2024-06-26] MEDS: BUDESONIDE 0.5 MG/2 ML AMPUL.NEB INH ×2 (07:15→18:45)
[2024-06-26] MEDS: guaiFENesin Liq 100 MG/5 ML LIQUID PO ×2 (07:54→20:04)
[2024-06-26] MEDS: ALPRAZolam 0.5 MG TABLET PO ×2 (07:54→16:00)
[2024-06-26] MEDS: HYDRO PO ×2 (07:55→20:04)
[2024-06-26] MEDS: ACET PO ×2 (07:55→20:04)
[2024-06-26] MEDS: SENNOSIDES 8.6 MG TABLET PO ×2 (08:03→20:03)
[2024-06-26] MEDS: MULTIVITAMIN 1 TAB TABLET PO (08:03)
[2024-06-26] MEDS: VITAMIN B COMPLEX PO (08:03)
[2024-06-26] MEDS: ASCORBIC ACID 500 MG TABLET PO ×2 (08:03→20:03)
[2024-06-26] MEDS: DEX/HYPRO/GLY ARTIFICAL TEARS 225 DROP/15 ML BTL BOTH EYES ×2 (08:03→20:03)
[2024-06-26] MEDS: FAMOTIDINE 20 MG TABLET PO ×2 (08:03→20:03)
[2024-06-27] VITALS (12 sets, daily range): BP systolic 103–134; BP diastolic 61–76; PULSE 61–88; RESP 14–18; TEMP 36.1–36.7; O2SAT 95–99
[2024-06-27] MEDS: MIDODRINE 10 MG TABLET PO ×4 (00:02→18:00)
[2024-06-27] MEDS: ACETAMINOPHEN 325 MG TABLET 650 MG PO (00:04)
[2024-06-27] MEDS: IPRATROPIUM/ALBUTEROL 3 ML AMPUL.NEB INH ×5 (02:05→22:30)
[2024-06-27] MEDS: ALPRAZolam 0.5 MG TABLET PO ×2 (05:00→20:04)
[2024-06-27] MEDS: guaiFENesin Liq 100 MG/5 ML LIQUID PO ×2 (05:05→12:00)
[2024-06-27] MEDS: BUDESONIDE 0.5 MG/2 ML AMPUL.NEB INH ×2 (06:54→19:05)
[2024-06-27] MEDS: FAMOTIDINE 20 MG TABLET PO ×2 (09:01→20:05)
[2024-06-27] MEDS: ASCORBIC ACID 500 MG TABLET PO ×2 (09:01→20:04)
[2024-06-27] MEDS: DEX/HYPRO/GLY ARTIFICAL TEARS 225 DROP/15 ML BTL BOTH EYES ×2 (09:01→20:05)
[2024-06-27] MEDS: AMIODARONE 200 MG TABLET PO (09:01)
[2024-06-27] MEDS: MULTIVITAMIN 1 TAB TABLET PO (09:02)
[2024-06-27] MEDS: SENNOSIDES 8.6 MG TABLET PO ×2 (09:02→20:05)
[2024-06-27] MEDS: VITAMIN B COMPLEX PO (09:02)
[2024-06-27] MEDS: HYDRO PO ×2 (11:00→22:00)
[2024-06-27] MEDS: ACET PO ×2 (11:00→22:00)
--- NOTE | 2024-06-27 22:17 | PD.SAPROG ---
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 (2) Chronic respiratory failure with hypoxia and hypercapnia: Status: Chronic (3) Ventilator dependent: Status: Chronic (4) Congestive heart failure: Status: Chronic (5) Chronic obstructive pulmonary disease, unspecified: Status: Chronic (6) Atrial fibrillation: Status: Chronic (7) Tracheostomy in place: Status: Chronic (8) Chronic anemia: Status: Chronic SUBJECTIVE Fever:: none GI:: none Shortness of Breath:: unchanged GI:: nausea Pain:: none OBJECTIVE Most recent vital signs: Last Vital Signs Temp 97.0 F 06/27/24 17:43 Pulse 66 06/27/24 17:43 Resp 16 06/27/24 17:43 BP 124/76 06/27/24 17:43 Pulse Ox 98 06/27/24 17:43 O2 Del Method Mechanical Ventilation 06/27/24 17:43 FiO2 40 06/27/24 22:00 Neurological:: alert Speech:: nods head, mouths words and appropriate Answers questions:: yes Respiratory:: shallow breathing and rhonchi Cardiovascular: irregular Abdomen: soft Tracheostomy:: to ventilator Feeding per:: po ASSESSMENT & PLAN Assessment: stable. Tolerating ventilatory support. Not weanable because of generalized weakness. Tolerating feeding. Prognosis is very guarded. Patient aware. Family kept aware as well. Discussed with pt this week about setting ET tube in a way so the pt can speak while on Ventilator. pt was satisfied with the settings without compromising ventilation.She requested anti acid for stomach discomfort and was given prn liquid PO. 06/05/24, She was having respiratory stress, settled with anxiety meds, but got a cbc next morning and TLC was elevated sig. without any sig. immature cells and so started empirical Augmenten with plan to repeat CBC in two days to monitor trends. Pt seems happy. Cell counts improved,afebrile, now having some loose stools and given imodium with improvement, Fluid supplements to prevent dehydration. Psychotropics: Xanax 0.5 mgs bid has really done well to settle her anxiety. no side effects seen. She does not do well on lower titration of anxiety meds. No new issues. Plan: Current treatment as well as ventilator settings reviewed and continued.
[2024-06-28] VITALS (12 sets, daily range): BP systolic 96–171; BP diastolic 56–74; PULSE 59–88; RESP 14–16; TEMP 36.2–36.6; O2SAT 97–99
[2024-06-28] MEDS: MIDODRINE 10 MG TABLET PO ×4 (00:15→18:12)
[2024-06-28] MEDS: guaiFENesin Liq 100 MG/5 ML LIQUID PO ×2 (00:45→17:35)
[2024-06-28] MEDS: ACETAMINOPHEN 325 MG TABLET 650 MG PO (00:45)
[2024-06-28] MEDS: IPRATROPIUM/ALBUTEROL 3 ML AMPUL.NEB INH ×6 (02:35→23:00)
[2024-06-28] MEDS: ALPRAZolam 0.5 MG TABLET PO ×3 (04:15→23:02)
[2024-06-28] MEDS: BUDESONIDE 0.5 MG/2 ML AMPUL.NEB INH ×2 (06:50→19:15)
[2024-06-28] MEDS: AMIODARONE 200 MG TABLET PO (09:13)
[2024-06-28] MEDS: ASCORBIC ACID 500 MG TABLET PO (09:13)
[2024-06-28] MEDS: DEX/HYPRO/GLY ARTIFICAL TEARS 225 DROP/15 ML BTL BOTH EYES (09:14)
[2024-06-28] MEDS: FAMOTIDINE 20 MG TABLET PO (09:14)
[2024-06-28] MEDS: MULTIVITAMIN 1 TAB TABLET PO (09:14)
[2024-06-28] MEDS: SENNOSIDES 8.6 MG TABLET PO (09:14)
[2024-06-28] MEDS: VITAMIN B COMPLEX PO (09:14)
[2024-06-28] MEDS: HYDRO PO (10:00)
[2024-06-28] MEDS: ACET PO (10:00)
[2024-06-29] VITALS (13 sets, daily range): BP systolic 92–150; BP diastolic 61–96; PULSE 64–96; RESP 14–23; TEMP 36.3–36.5; O2SAT 96–100
[2024-06-29] MEDS: guaiFENesin Liq 100 MG/5 ML LIQUID PO ×2 (00:25→16:22)
[2024-06-29] MEDS: ACET PO ×3 (00:25→20:11)
[2024-06-29] MEDS: HYDRO PO ×3 (00:25→20:11)
[2024-06-29] MEDS: IPRATROPIUM/ALBUTEROL 3 ML AMPUL.NEB INH ×6 (03:30→22:43)
[2024-06-29] MEDS: ACETAMINOPHEN 325 MG TABLET 650 MG PO (05:05)
[2024-06-29] MEDS: ASCORBIC ACID 500 MG TABLET PO ×2 (08:38→20:11)
[2024-06-29] MEDS: DEX/HYPRO/GLY ARTIFICAL TEARS 225 DROP/15 ML BTL BOTH EYES ×2 (08:38→20:11)
[2024-06-29] MEDS: FAMOTIDINE 20 MG TABLET PO ×2 (08:39→20:11)
[2024-06-29] MEDS: SENNOSIDES 8.6 MG TABLET PO ×2 (08:39→20:11)
[2024-06-29] MEDS: AMIODARONE 200 MG TABLET PO (08:40)
[2024-06-29] MEDS: MULTIVITAMIN 1 TAB TABLET PO (08:40)
[2024-06-29] MEDS: VITAMIN B COMPLEX PO (08:41)
[2024-06-29] MEDS: ALPRAZolam 0.5 MG TABLET PO ×2 (08:41→20:10)
--- NOTE | 2024-06-29 16:14 | PC.NURSE ---
Doctor Jignesh surgeon visited resident at bedside. Explained resident regarding procedure of trach revision. New orders to obtain consent and pre-op labs carried out labs . Will await for OR surgery scheduler before pre-register resident. Obtain consent from resident. Family notified.
[2024-06-29] MEDS: BUDESONIDE 0.5 MG/2 ML AMPUL.NEB INH (19:30)
[2024-06-30] VITALS (13 sets, daily range): BP systolic 94–133; BP diastolic 56–70; PULSE 69–90; RESP 14–20; TEMP 36.2–36.7; O2SAT 94–100
[2024-06-30] MEDS: IPRATROPIUM/ALBUTEROL 3 ML AMPUL.NEB INH ×6 (02:45→22:15)
[2024-06-30] MEDS: ACETAMINOPHEN 325 MG TABLET 650 MG PO ×2 (03:36→20:36)
[2024-06-30] MEDS: HYDRO PO (04:40)
[2024-06-30] MEDS: ACET PO (04:40)
[2024-06-30] MEDS: BUDESONIDE 0.5 MG/2 ML AMPUL.NEB INH ×2 (06:36→19:10)
[2024-06-30] MEDS: DEX/HYPRO/GLY ARTIFICAL TEARS 225 DROP/15 ML BTL BOTH EYES ×2 (08:35→20:35)
[2024-06-30] MEDS: ASCORBIC ACID 500 MG TABLET PO ×2 (08:35→20:34)
[2024-06-30] MEDS: SENNOSIDES 8.6 MG TABLET PO ×2 (08:36→20:35)
[2024-06-30] MEDS: FAMOTIDINE 20 MG TABLET PO ×2 (08:36→20:35)
[2024-06-30] MEDS: AMIODARONE 200 MG TABLET PO (08:37)
[2024-06-30] MEDS: MULTIVITAMIN 1 TAB TABLET PO (09:00)
[2024-06-30] MEDS: VITAMIN B COMPLEX PO (09:00)
[2024-06-30 11:53] LABS: Basophils % (Auto) 0 % (0-2.5); Eosinophils # (Auto) 0.4 Thou/mm3 (0.0-0.5); Eosinophils % (Auto) 2 % (0-10); Hematocrit 27.7 % (36.0-46.0); Immature Granulocytes % (Auto) 1 % (0-0); Immature Granulocytes Auto 0.09 Thou/mm3 (0.00-0.00); Lymphocytes % (Auto) 10 % (10-50); Mean Corpuscular HGB Conc 29.2 g/dl (31.0-37.0); Mean Corpuscular Hemoglobin 30.2 pg (25.0-35.0); Mean Corpuscular Volume 103 fL (80-100); Monocytes # (Auto) 1.5 Thou/mm3 (0.0-0.8); Monocytes % (Auto) 8 % (0-12); Neutrophils # (Auto) 15.8 Thou/mm3 (1.8-7.7); Neutrophils % (Auto) 80 % (37-80); Nucleated Red Blood Cell % 0 /100 WBC (0); Platelet Count 312 Thou/mm3 (140-440); RDW Standard Deviation 63.2 fL (36.4-46.3); Red Blood Count 2.68 Miln/mm3 (4.00-5.20); White Blood Count 19.9 Thou/mm3 (3.6-11.0)
[2024-06-30 12:17] LABS: Prothrombin Time 11.3 Seconds (9.0-12.2)
[2024-06-30 12:36] LABS: Alanine Aminotransferase 13 U/L (10-49); Albumin, Serum 3.8 gm/dL (3.4-4.8); Albumin/Globulin Ratio 1.2 (1.2-2.2); Alkaline Phosphatase 110 U/L (46-116); Anion Gap 2 (7-16); Aspartate Amino Transferase 25 U/L (0-34); BUN/Creatinine Ratio 28 Ratio (12-20); Bilirubin,Total 0.2 mg/dL (0.3-1.2); Blood Urea Nitrogen 11 mg/dL (9-23); Calcium 9.2 mg/dL (8.3-10.6); Calcium (Corrected) 9.4 mg/dL (8.5-10.1); Carbon Dioxide > 40.0 mMol/L (20.0-31.0); Chloride 94 mMol/L (98-107); Creatinine (Component) 0.4 mg/dL (0.6-1.3); Estimated Creatinine Clearance 76.1 mL/min (>60); Globulin 3.3 gm/dL (2.3-3.5); Glucose 108 mg/dL (74-106); Osmolality,Calculated 272 (275-295); Potassium 4.4 mMol/L (3.4-5.1); Sodium 136 mMol/L (136-145); Total Protein 7.1 gm/dL (5.7-8.2); eGFR > 60 See Note
[2024-06-30] MEDS: ALPRAZolam 0.5 MG TABLET PO ×2 (12:40→23:01)
[2024-06-30 12:46] LABS: Hemoglobin 8.1 g/dL (12.0-16.0)
--- NOTE | 2024-06-30 14:55 | PC.NURSE ---
Following on preparation for surgery. As written before resident will be going to surgery for trach revision on 07/01/24 at 1000 as reported by YOSEF Batista from OR. Arrangements are being made for resident's surgery All preop labs have been done consent has been signed by resident. Reviewed CBC with both MDs Dr. Egan and Dr. Salazar. Noted WBC's 19.1 Both doctors ok for resident to have trach revision tomorrow. Resident stated she will have surgery if needed. Stated she has not been feeling well the past couple of days Feeling shortness of breath . Stated she will do what doctor's recommend. Hand off give report to oncoming NOC nurse. Resident to be NPO after MN.
--- NOTE | 2024-06-30 15:25 | PC.IP ---
IP Note: After speaking with Aissatou, buffer copper, asked Mariela KENNEDY to get current set of vital signs on this resident. Noted that SpO2 at 0800 charted at 92%. Resident is scheduled for surgical procedure for trach revision and CBC WBC's elevated at 19.9, automated diff Neutophils#15.8 and Immature Gran% @1. Per MD Aissatou and Surgeon are aware of lab result and resident confirms she is 'okay' with going to surgery for procedure. Daniela FATIMA notified of upward trend in CBC. On 06/09/24 CXR Impression: COPD with severe hyperexpansion; Bilateral interstitial disease, diffuse in left lung consistent with Pneumonia. Resident did receive antibiotics, Augmentin BID from 06/06/24 - 06/13/24. Noted primary consistent sputum result is P.aeruginosa; Levaquin 500mg also ordered on 06/06/24 - 06/11/24 and dc'd. P.aeruginosa susceptible to Levaquin. Resident has no c/o discomfort at present; naps frequently. Skin warm and dry, pale. Continues on ventilated respiratory status at FIO2 of 40%.
[2024-06-30] MEDS: MIDODRINE 10 MG TABLET PO ×2 (17:24)
[2024-06-30] MEDS: guaiFENesin Liq 100 MG/5 ML LIQUID PO (22:15)
[2024-07-01] VITALS (12 sets, daily range): BP systolic 100–134; BP diastolic 60–76; PULSE 48–80; RESP 14–20; TEMP 36.1–36.6; O2SAT 93–100
[2024-07-01] MEDS: IPRATROPIUM/ALBUTEROL 3 ML AMPUL.NEB INH ×6 (02:04→23:35)
[2024-07-01] MEDS: ACETAMINOPHEN 325 MG TABLET 650 MG PO (04:30)
[2024-07-01] MEDS: MIDODRINE 10 MG TABLET PO ×3 (05:10→17:30)
[2024-07-01] MEDS: guaiFENesin Liq 100 MG/5 ML LIQUID PO ×2 (05:15→15:00)
[2024-07-01] MEDS: BUDESONIDE 0.5 MG/2 ML AMPUL.NEB INH ×2 (06:25→18:00)
--- NOTE | 2024-07-01 11:01 | ESCONSULT_ITS ---
HPI Consult details Consult date: 06/29/24 Reason for consultation narrative: Tracheostomy stenosis History of present illness: 69-year-old female with chronic respiratory failure secondary to COPD has had tracheostomy. She had been ventilating with a tracheostomy without difficulty. She was noted to have stenosis around the tracheostomy and the respiratory therapist has not been able to change her tracheostomy. I was consulted for r evision of tracheostomy. Review of Systems Review of Systems ROS Unobtainable: unobtainable due to endotracheal tube (Due to tracheostomy) Meds Home Medications and Allergies Home Medications ?Medication ?Instructions ?Recorded ?Confirmed ?Type amiodarone 200 mg tablet 200 mg PO QDAY 02/14/24 06/30/24 History famotidine 20 mg tablet 20 mg PO BID 02/14/24 06/30/24 History midodrine 10 mg tablet 10 mg PO QID 02/14/24 06/30/24 History acetaminophen 325 mg tablet 650 mg PO Q6H PRN Fever Or Pain 02/15/24 02/15/24 History (Tylenol) alprazolam 0.5 mg tablet 0.5 mg PO Q8H PRN Anxiety 02/15/24 02/15/24 History guaifenesin 100 mg/5 mL oral syrup 100 mg PO Q6H PRN Cough 02/15/24 06/30/24 History ascorbic acid (vitamin C) 500 mg 500 mg PO BID 06/30/24 06/30/24 History tablet (Vitamin C) bisacodyl 10 mg rectal suppository 10 mg NJ QDAY PRN Constipation 06/30/24 06/30/24 History (Dulcolax (bisacodyl)) budesonide 0.5 mg/2 mL suspension 0.5 mg inhalation BID 06/30/24 06/30/24 History for nebulization (Pulmicort) guaifenesin 100 mg/5 mL oral 200 mg PO Q6H PRN Cough 06/30/24 06/30/24 History liquid (Nilsa-Tussin) hydrocodone 5 mg-acetaminophen 325 1 tab PO Q8H PRN Pain 06/30/24 06/30/24 History mg tablet ipratropium 0.5 mg-albuterol 3 mg 3 ml inhalation Q4H PRN Wheezing 06/30/24 06/30/24 History (2.5 mg base)/3 mL nebulization soln multivitamin 1 tab PO QAM 06/30/24 06/30/24 History ondansetron HCl 4 mg tablet 4 mg PO Q6H PRN Nausea 06/30/24 06/30/24 History sennosides 8.6 mg tablet (senna) 8.6 mg PO BID 06/30/24 06/30/24 History vitamin B complex 1 tab PO QDAY 06/30/24 06/30/24 History Allergies Allergy/AdvReac Type Severity Reaction Status Date / Time No Known Allergies Allergy Verified 06/30/24 14:49 Exam Vital Signs Temp Pulse Resp BP Pulse Ox O2 Del Method FiO2 97.5 F 78 14 100/60 98 Mechanical Ventilation 40 07/01/24 06:00 07/01/24 10:00 07/01/24 10:00 07/01/24 06:00 07/01/24 10:00 07/01/24 06:00 07/01/24 10:00 Constitutional Constitutional: no acute distress Routine Neck Exam Comments: Tracheostomy in place and intact with significant granulation tissue around trac heostomy site Assessment & Plan Problem List (1) Tracheal stenosis following tracheostomy: Status: Acute Plan Will plan for revision of tracheostomy. Risks include but not limited to infection, bleeding, chronic nonhealing wound, injury to surround neurovascular structures, need for further procedure and or operation discussed with the patient. Benefits alternatives explained to her, all her questions answered, she agreed and consented to proceed with the operation.
--- NOTE | 2024-07-01 11:05 | PD.SUROPNT ---
Date of Procedure 07/01/24 Pre Op Diagnosis Tracheostomy stenosis Post Op Diagnosis Tracheostomy stenosis Procedure Revision of tracheostomy Findings Significant stenosis around tracheostomy site Procedure Description Patient brought into the operating room in supine position. She underwent placement of oral endotracheal intubation and her tracheostomy was removed. A 2 and half centimeter diameter circular incision was made around the tracheostomy site and dissection was deepened in the soft tissue. The underlying granulation soft tissue was excised and continued until the trachea. All the excess granulation tissue in the soft tissue were excised and the trachea was cleared. The orotracheal tube was clearly visible. The opening in the tracheostomy was extended. The anesthesia provider was instructed to pull the orotracheal tube until the tip was just beyond the tracheotomy site. A size 8 cuffed tracheostomy was placed through the tracheotomy site and the oral endotracheal tube was removed. The cuff was inflated. Patient was being ventilated without difficulty with normal end-tidal CO2. The tracheostomy was suctioned with minimal secretions. Hemostasis was adequate and satisfactory. A small piece of Surgicel placed around the site to further assure hemostasis. Appropriate dressings applied. A Velcro was placed around the neck to further secure the tracheostomy. Patient tolerated procedure well. She remained hemodynamically stable and transferred to postanesthesia care in stable condition. Anesthesia GETA Pathology / specimen None Estimated Blood Loss 2 Condition Stable Disposition PACU Surgeon Fermin Egan MD
--- NOTE | 2024-07-01 14:24 | PC.RT ---
Pt went for trach revision at 10:00 with no issues, new trach size is Shiley 8SCT, change is reflected on the DPSNF Master and trach kit at [facility] has been updated to new size.
[2024-07-01] MEDS: ASCORBIC ACID 500 MG TABLET PO ×2 (14:30→20:05)
[2024-07-01] MEDS: FAMOTIDINE 20 MG TABLET PO ×2 (14:34→20:06)
[2024-07-01] MEDS: SENNOSIDES 8.6 MG TABLET PO ×2 (14:34→20:06)
[2024-07-01] MEDS: DEX/HYPRO/GLY ARTIFICAL TEARS 225 DROP/15 ML BTL BOTH EYES ×2 (14:34→20:05)
[2024-07-01] MEDS: AMIODARONE 200 MG TABLET PO (14:35)
[2024-07-01] MEDS: MULTIVITAMIN 1 TAB TABLET PO (14:36)
[2024-07-01] MEDS: ALPRAZolam 0.5 MG TABLET PO (14:37)
[2024-07-01] MEDS: VITAMIN B COMPLEX PO (14:37)
--- NOTE | 2024-07-01 14:41 | PC.SS ---
Room visit: Resident is laying in bed with head of the bed elevated with call light properly placed with no signs of distress. Resident remains on ventilator with trach in place with GT in place for medication and nutrition, she continues to eat by mouth with no difficulty. Resident came back from procedure in good spirits. Resident is smiling and said she feels good. Resident will remain in current care and will continue to have all subacute care needs met by staff. This SSD will make daily contact with resident and offer support as needed.
--- NOTE | 2024-07-01 18:06 | PC.NURSE ---
Resident had a trach revision today around [address] Egan came back to the unit at 1220, resident was stable, resident looks calmer and looks good and verbalized she can breath better now with the trach size 8, V/S was stble, Dr. Salazar order to resume all previous order, family notified that resident came back to our facility.([facility])..
[2024-07-01] MEDS: ACET PO (19:49)
[2024-07-01] MEDS: HYDRO PO (19:49)
[2024-07-02] VITALS (13 sets, daily range): BP systolic 93–138; BP diastolic 56–67; PULSE 57–75; RESP 14–16; TEMP 36.1–36.6; O2SAT 96–100
[2024-07-02] MEDS: guaiFENesin Liq 100 MG/5 ML LIQUID PO ×3 (02:11→20:16)
[2024-07-02] MEDS: IPRATROPIUM/ALBUTEROL 3 ML AMPUL.NEB INH ×6 (02:11→22:27)
[2024-07-02] MEDS: BUDESONIDE 0.5 MG/2 ML AMPUL.NEB INH ×2 (04:50→18:06)
[2024-07-02] MEDS: MIDODRINE 10 MG TABLET PO ×2 (05:08→15:31)
[2024-07-02] MEDS: ACETAMINOPHEN 325 MG TABLET 650 MG PO ×3 (05:20→20:16)
[2024-07-02] MEDS: FAMOTIDINE 20 MG TABLET PO ×2 (08:57→20:20)
[2024-07-02] MEDS: ASCORBIC ACID 500 MG TABLET PO ×2 (08:57→20:20)
[2024-07-02] MEDS: SENNOSIDES 8.6 MG TABLET PO (08:57)
[2024-07-02] MEDS: DEX/HYPRO/GLY ARTIFICAL TEARS 225 DROP/15 ML BTL BOTH EYES ×2 (08:57→20:20)
[2024-07-02] MEDS: VITAMIN B COMPLEX PO (08:58)
[2024-07-02] MEDS: AMIODARONE 200 MG TABLET PO (08:58)
[2024-07-02] MEDS: MULTIVITAMIN 1 TAB TABLET PO (08:58)
[2024-07-02] MEDS: ALPRAZolam 0.5 MG TABLET PO (14:00)
[2024-07-02] MEDS: HYDRO PO (18:00)
[2024-07-02] MEDS: ACET PO (18:00)
[2024-07-03] VITALS (13 sets, daily range): BP systolic 109–154; BP diastolic 52–86; PULSE 60–87; RESP 14–18; TEMP 36.2–36.4; O2SAT 96–100
[2024-07-03] MEDS: ALPRAZolam 0.5 MG TABLET PO ×3 (01:26→16:58)
[2024-07-03] MEDS: IPRATROPIUM/ALBUTEROL 3 ML AMPUL.NEB INH ×6 (02:00→22:10)
[2024-07-03] MEDS: ACETAMINOPHEN 325 MG TABLET 650 MG PO ×2 (05:16→16:59)
[2024-07-03] MEDS: ASCORBIC ACID 500 MG TABLET PO ×2 (08:18→20:05)
[2024-07-03] MEDS: DEX/HYPRO/GLY ARTIFICAL TEARS 225 DROP/15 ML BTL BOTH EYES ×2 (08:18→20:05)
[2024-07-03] MEDS: FAMOTIDINE 20 MG TABLET PO ×2 (08:18→20:05)
[2024-07-03] MEDS: SENNOSIDES 8.6 MG TABLET PO ×2 (08:19→20:05)
[2024-07-03] MEDS: VITAMIN B COMPLEX PO (08:21)
[2024-07-03] MEDS: MULTIVITAMIN 1 TAB TABLET PO (08:21)
[2024-07-03] MEDS: AMIODARONE 200 MG TABLET PO (08:21)
[2024-07-03] MEDS: guaiFENesin Liq 100 MG/5 ML LIQUID PO ×2 (08:24→20:05)
[2024-07-03] MEDS: MIDODRINE 10 MG TABLET PO ×2 (12:17)
[2024-07-03] MEDS: BUDESONIDE 0.5 MG/2 ML AMPUL.NEB INH (18:20)
--- NOTE | 2024-07-03 21:46 | PC.RT ---
meds were ordered, duoneb and pulmicort, order confirmed by Susan from pharmacy
[2024-07-04] VITALS (13 sets, daily range): BP systolic 97–121; BP diastolic 61–69; PULSE 64–86; RESP 14–18; TEMP 36.4–36.5; O2SAT 95–100
[2024-07-04] MEDS: ALPRAZolam 0.5 MG TABLET PO ×2 (01:00→09:00)
[2024-07-04] MEDS: IPRATROPIUM/ALBUTEROL 3 ML AMPUL.NEB INH ×6 (02:05→22:00)
--- NOTE | 2024-07-04 04:01 | PC.RT ---
per nurse pt sob requesting RT, pt had just been reposition, pt tachypnic, RR30, auscultated ronchi, coarse bs, suctioned a moderate amount of yellow felix sputum, spo2 96%, hr 85, auscultated coarse bs, pt appear more comfortable after suctioned, RR improved to 18.
[2024-07-04] MEDS: MIDODRINE 10 MG TABLET PO ×2 (05:15→12:35)
[2024-07-04] MEDS: ACETAMINOPHEN 325 MG TABLET 650 MG PO ×2 (09:00→21:31)
[2024-07-04] MEDS: DEX/HYPRO/GLY ARTIFICAL TEARS 225 DROP/15 ML BTL BOTH EYES ×2 (09:19→20:49)
[2024-07-04] MEDS: ASCORBIC ACID 500 MG TABLET PO ×2 (09:19→20:49)
[2024-07-04] MEDS: FAMOTIDINE 20 MG TABLET PO ×2 (09:19→20:49)
[2024-07-04] MEDS: AMIODARONE 200 MG TABLET PO (09:19)
[2024-07-04] MEDS: MULTIVITAMIN 1 TAB TABLET PO (09:20)
[2024-07-04] MEDS: VITAMIN B COMPLEX PO (09:20)
[2024-07-04] MEDS: HYDRO PO (17:00)
[2024-07-04] MEDS: ACET PO (17:00)
--- NOTE | 2024-07-04 18:26 | PD.SAPROG ---
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 (2) Chronic respiratory failure with hypoxia and hypercapnia: Status: Chronic (3) Ventilator dependent: Status: Chronic (4) Congestive heart failure: Status: Chronic (5) Chronic obstructive pulmonary disease, unspecified: Status: Chronic (6) Atrial fibrillation: Status: Chronic (7) Tracheostomy in place: Status: Chronic (8) Chronic anemia: Status: Chronic SUBJECTIVE Fever:: none GI:: none Shortness of Breath:: unchanged GI:: nausea Pain:: none OBJECTIVE Most recent vital signs: Last Vital Signs Temp 97.5 F 07/04/24 17:58 Pulse 78 07/04/24 17:58 Resp 14 07/04/24 17:58 BP 109/69 07/04/24 17:58 Pulse Ox 99 07/04/24 17:58 O2 Del Method Mechanical Ventilation 07/04/24 17:58 FiO2 40 07/04/24 14:10 Neurological:: alert Speech:: nods head, mouths words and appropriate Answers questions:: yes Respiratory:: shallow breathing and rhonchi Cardiovascular: irregular Abdomen: soft Tracheostomy:: to ventilator Feeding per:: po ASSESSMENT & PLAN Assessment: stable. Tolerating ventilatory support. Not weanable because of generalized weakness. Tolerating feeding. Prognosis is very guarded. Patient aware. Family kept aware as well. Discussed with pt this week about setting ET tube in a way so the pt can speak while on Ventilator. pt was satisfied with the settings without compromising ventilation.She requested anti acid for stomach discomfort and was given prn liquid PO. 06/05/24, She was having respiratory stress, settled with anxiety meds, but got a cbc next morning and TLC was elevated sig. without any sig. immature cells and so started empirical Augmenten with plan to repeat CBC in two days to monitor trends. Pt seems happy. Cell counts improved,afebrile, now having some loose stools and given imodium with improvement, Fluid supplements to prevent dehydration. Tracheostomy revision done surgically. Psychotropics: Xanax 0.5 mgs bid has really done well to settle her anxiety. no side effects seen. She does not do well on lower titration of anxiety meds. No new issues. Plan: Current treatment as well as ventilator settings reviewed and continued.
[2024-07-04] MEDS: SENNOSIDES 8.6 MG TABLET PO (20:49)
--- NOTE | 2024-07-04 23:00 | PC.RT ---
pt requested Rt complaining of sob, immediately went to assess pt, spo2 97%, hr 67, RR26, auscultated diminish coarse bs, no wheezing noted, pt looked sob however breathing not labored, suctioned a moderate amount of felix yellow thick sputum, tidal volumes maintaining in the 400s, PIP pressure in the 20s, after 5 min pt seem more comfortable RR improved, pt requested a tx and aware she does have a schedule Q4H tx and next tx will be untill 02:00.
[2024-07-05] VITALS (12 sets, daily range): BP systolic 100–133; BP diastolic 58–73; PULSE 63–85; RESP 14–20; TEMP 36.1–36.6; O2SAT 97–100
[2024-07-05] MEDS: IPRATROPIUM/ALBUTEROL 3 ML AMPUL.NEB INH ×6 (02:15→22:10)
[2024-07-05] MEDS: ACETAMINOPHEN 325 MG TABLET 650 MG PO (04:59)
--- NOTE | 2024-07-05 05:17 | PC.RT ---
per nurse pt complaining of sob, pt tachypnic RR29, labored hr 79, spo2 94% auscultated coarse bs with expiratory wheezez, suctioned a small thin cream yellow sputum, gave pt a fio2 boost of 100%, pt requested another boost of 100%, I explain to pt I gave her one time boost, pt RR improved to 20, spo2 improved to 99%, current fio2 is at 40% no other changes, pt requested to have her tx at 06:00, am RT will be made aware.
[2024-07-05] MEDS: MIDODRINE 10 MG TABLET PO ×2 (05:25→17:53)
[2024-07-05] MEDS: MAGNESIUM HYDROXIDE 30 ML ORAL SUSP ML PO (05:50)
[2024-07-05] MEDS: ALPRAZolam 0.5 MG TABLET PO ×2 (08:00→20:00)
[2024-07-05] MEDS: FAMOTIDINE 20 MG TABLET PO ×2 (08:23→20:28)
[2024-07-05] MEDS: DEX/HYPRO/GLY ARTIFICAL TEARS 225 DROP/15 ML BTL BOTH EYES ×2 (08:23→20:28)
[2024-07-05] MEDS: ASCORBIC ACID 500 MG TABLET PO ×2 (08:23→20:27)
[2024-07-05] MEDS: AMIODARONE 200 MG TABLET PO (08:24)
[2024-07-05] MEDS: MULTIVITAMIN 1 TAB TABLET PO (08:24)
[2024-07-05] MEDS: guaiFENesin Liq 100 MG/5 ML LIQUID PO ×2 (08:24→17:54)
[2024-07-05] MEDS: VITAMIN B COMPLEX PO (08:24)
--- NOTE | 2024-07-05 15:20 | PC.NURSE ---
Around 1445 ACADEMIC ADVISING DIRECTOR walked into find residents trach disconnected. ACADEMIC ADVISING DIRECTOR reconnected patient. Residents O2 was at 84%. BP was 180/92 and HR in 130s. RT was already on the way to give breathing treatment. RT began to bag resident for a few minutes and resident slowly returned to baseline. BP stabilized to 119/75 HR 98 and O2 back to 96%. Resident was able to write down I love you all on her notepad. Resident was given her breathing treatment and no further issues were noted.
--- NOTE | 2024-07-05 19:30 | PC.RT ---
per nurse pt requested RT to take air out of cuff to make a phone call, went to assess pt, spo2 98%, Rr20, no distress took 5 ml of air per pt request pt having sob and unable to talk, put 5 ml back on her cuff, suctioned a small amount of thin yellow sputum, spo2 remaining 98-99%.
[2024-07-05] MEDS: SENNOSIDES 8.6 MG TABLET PO (20:28)
[2024-07-05] MEDS: HYDRO PO (21:05)
[2024-07-05] MEDS: ACET PO (21:05)
[2024-07-06] VITALS (13 sets, daily range): BP systolic 130–161; BP diastolic 61–72; PULSE 65–88; RESP 14–21; TEMP 36.1–36.5; O2SAT 95–100
[2024-07-06] MEDS: ACETAMINOPHEN 325 MG TABLET 650 MG PO (01:52)
[2024-07-06] MEDS: guaiFENesin Liq 100 MG/5 ML LIQUID PO ×3 (01:52→23:37)
[2024-07-06] MEDS: BUDESONIDE 0.5 MG/2 ML AMPUL.NEB INH ×2 (06:11→18:04)
[2024-07-06] MEDS: IPRATROPIUM/ALBUTEROL 3 ML AMPUL.NEB INH ×5 (06:11→22:18)
[2024-07-06] MEDS: SENNOSIDES 8.6 MG TABLET PO ×2 (08:48→20:29)
[2024-07-06] MEDS: ASCORBIC ACID 500 MG TABLET PO ×2 (08:48→20:28)
[2024-07-06] MEDS: DEX/HYPRO/GLY ARTIFICAL TEARS 225 DROP/15 ML BTL BOTH EYES ×2 (08:48→20:28)
[2024-07-06] MEDS: FAMOTIDINE 20 MG TABLET PO ×2 (08:48→20:29)
[2024-07-06] MEDS: MULTIVITAMIN 1 TAB TABLET PO (08:49)
[2024-07-06] MEDS: ALPRAZolam 0.5 MG TABLET PO ×2 (08:49→16:50)
[2024-07-06] MEDS: AMIODARONE 200 MG TABLET PO (08:49)
[2024-07-06] MEDS: VITAMIN B COMPLEX PO (08:49)
[2024-07-06] MEDS: ACET PO ×2 (11:00→23:01)
[2024-07-06] MEDS: HYDRO PO ×2 (11:00→23:01)
[2024-07-07] VITALS (13 sets, daily range): BP systolic 95–138; BP diastolic 58–72; PULSE 61–88; RESP 14–19; TEMP 36.4–36.5; O2SAT 96–99
[2024-07-07] MEDS: MIDODRINE 10 MG TABLET PO ×2 (00:15→05:16)
[2024-07-07] MEDS: IPRATROPIUM/ALBUTEROL 3 ML AMPUL.NEB INH ×6 (02:21→22:25)
[2024-07-07] MEDS: BUDESONIDE 0.5 MG/2 ML AMPUL.NEB INH ×2 (06:56→18:08)
[2024-07-07] MEDS: ALPRAZolam 0.5 MG TABLET PO ×2 (08:15→18:15)
[2024-07-07] MEDS: DEX/HYPRO/GLY ARTIFICAL TEARS 225 DROP/15 ML BTL BOTH EYES ×2 (09:23→20:37)
[2024-07-07] MEDS: ASCORBIC ACID 500 MG TABLET PO ×2 (09:23→20:37)
[2024-07-07] MEDS: SENNOSIDES 8.6 MG TABLET PO ×2 (09:25→20:37)
[2024-07-07] MEDS: FAMOTIDINE 20 MG TABLET PO ×2 (09:25→20:37)
[2024-07-07] MEDS: VITAMIN B COMPLEX PO (09:26)
[2024-07-07] MEDS: MULTIVITAMIN 1 TAB TABLET PO (09:26)
[2024-07-07] MEDS: AMIODARONE 200 MG TABLET PO (09:26)
[2024-07-07] MEDS: guaiFENesin Liq 100 MG/5 ML LIQUID PO (10:00)
[2024-07-07] MEDS: HYDRO PO ×2 (11:00→20:37)
[2024-07-07] MEDS: ACET PO ×2 (11:00→20:37)
[2024-07-08] VITALS (13 sets, daily range): BP systolic 110–142; BP diastolic 57–79; PULSE 61–95; RESP 15–19; TEMP 36.1–37.1; O2SAT 97–99
[2024-07-08] MEDS: MIDODRINE 10 MG TABLET PO ×3 (00:08→12:00)
[2024-07-08] MEDS: guaiFENesin Liq 100 MG/5 ML LIQUID PO ×2 (00:15→16:00)
[2024-07-08] MEDS: IPRATROPIUM/ALBUTEROL 3 ML AMPUL.NEB INH ×6 (02:15→22:05)
[2024-07-08] MEDS: ALPRAZolam 0.5 MG TABLET PO ×3 (02:46→20:29)
[2024-07-08] MEDS: BUDESONIDE 0.5 MG/2 ML AMPUL.NEB INH ×2 (06:53→18:40)
[2024-07-08] MEDS: ASCORBIC ACID 500 MG TABLET PO ×2 (09:45→20:28)
[2024-07-08] MEDS: AMIODARONE 200 MG TABLET PO (09:55)
[2024-07-08] MEDS: SENNOSIDES 8.6 MG TABLET PO ×2 (09:57→20:29)
[2024-07-08] MEDS: MULTIVITAMIN 1 TAB TABLET PO (09:57)
[2024-07-08] MEDS: FAMOTIDINE 20 MG TABLET PO ×2 (09:57→20:29)
[2024-07-08] MEDS: DEX/HYPRO/GLY ARTIFICAL TEARS 225 DROP/15 ML BTL BOTH EYES ×2 (09:57→20:29)
[2024-07-08] MEDS: VITAMIN B COMPLEX PO (09:58)
[2024-07-08] MEDS: ACET PO ×2 (13:00→23:15)
[2024-07-08] MEDS: HYDRO PO ×2 (13:00→23:15)
--- NOTE | 2024-07-08 23:01 | PD.SAPROG ---
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 (2) Chronic respiratory failure with hypoxia and hypercapnia: Status: Chronic (3) Ventilator dependent: Status: Chronic (4) Congestive heart failure: Status: Chronic (5) Chronic obstructive pulmonary disease, unspecified: Status: Chronic (6) Atrial fibrillation: Status: Chronic (7) Tracheostomy in place: Status: Chronic (8) Chronic anemia: Status: Chronic SUBJECTIVE Fever:: none GI:: none Shortness of Breath:: unchanged GI:: nausea Pain:: none OBJECTIVE Most recent vital signs: Last Vital Signs Temp 98.8 F 07/08/24 18:00 Pulse 82 07/08/24 18:00 Resp 17 07/08/24 18:00 BP 142/75 H 07/08/24 18:00 Pulse Ox 97 07/08/24 18:00 O2 Del Method Mechanical Ventilation 07/08/24 18:00 FiO2 40 07/08/24 18:00 Neurological:: alert Speech:: nods head, mouths words and appropriate Answers questions:: yes Respiratory:: shallow breathing and rhonchi Cardiovascular: irregular Abdomen: soft Tracheostomy:: to ventilator Feeding per:: po ASSESSMENT & PLAN Assessment: stable. Tolerating ventilatory support. Not weanable because of generalized weakness. Tolerating feeding. Prognosis is very guarded. Patient aware. Family kept aware as well. Discussed with pt this week about setting ET tube in a way so the pt can speak while on Ventilator. pt was satisfied with the settings without compromising ventilation.She requested anti acid for stomach discomfort and was given prn liquid PO. 06/05/24, She was having respiratory stress, settled with anxiety meds, but got a cbc next morning and TLC was elevated sig. without any sig. immature cells and so started empirical Augmenten with plan to repeat CBC in two days to monitor trends which was done and pt stable after antbiotics completed. Pt seems happy. Cell counts improved,afebrile, now having some loose stools and given imodium with improvement, Fluid supplements to prevent dehydration. Tracheostomy revision done surgically. Psychotropics: Xanax 0.5 mgs bid has really done well to settle her anxiety. no side effects seen. She does not do well on lower titration of anxiety meds. No new issues. Plan: Current treatment as well as ventilator settings reviewed and continued.
[2024-07-09] VITALS (13 sets, daily range): BP systolic 102–162; BP diastolic 52–69; PULSE 57–96; RESP 14–17; TEMP 36.1–36.7; O2SAT 96–100
[2024-07-09] MEDS: MIDODRINE 10 MG TABLET PO ×3 (00:04→12:28)
--- NOTE | 2024-07-09 00:51 | PC.RT ---
LUIS EDUARDO ORDERED SEND AT 00:48, ORDER CONFIRMED BY AMRIT FROM PHARMACY.
[2024-07-09] MEDS: IPRATROPIUM/ALBUTEROL 3 ML AMPUL.NEB INH ×6 (02:20→22:00)
[2024-07-09] MEDS: BUDESONIDE 0.5 MG/2 ML AMPUL.NEB INH ×2 (06:05→18:45)
[2024-07-09] MEDS: ALPRAZolam 0.5 MG TABLET PO ×2 (09:24→17:37)
[2024-07-09] MEDS: AMIODARONE 200 MG TABLET PO (09:25)
[2024-07-09] MEDS: ASCORBIC ACID 500 MG TABLET PO ×2 (09:26→20:28)
[2024-07-09] MEDS: FAMOTIDINE 20 MG TABLET PO ×2 (09:26→20:28)
[2024-07-09] MEDS: DEX/HYPRO/GLY ARTIFICAL TEARS 225 DROP/15 ML BTL BOTH EYES ×2 (09:26→20:28)
[2024-07-09] MEDS: SENNOSIDES 8.6 MG TABLET PO ×2 (09:26→20:28)
[2024-07-09] MEDS: MULTIVITAMIN 1 TAB TABLET PO (09:26)
[2024-07-09] MEDS: VITAMIN B COMPLEX PO (09:27)
[2024-07-09] MEDS: BISACODYL 10 MG SUPP.RECT PR (12:32)
[2024-07-09] MEDS: HYDRO PO (16:21)
[2024-07-09] MEDS: ACET PO (16:21)
[2024-07-09] MEDS: ACETAMINOPHEN 325 MG TABLET 650 MG PO (21:18)
[2024-07-10] VITALS (12 sets, daily range): BP systolic 94–134; BP diastolic 54–66; PULSE 65–80; RESP 14–23; TEMP 36.1–36.7; O2SAT 97–99
[2024-07-10] MEDS: HYDRO PO ×2 (00:24→19:58)
[2024-07-10] MEDS: ACET PO ×2 (00:24→19:58)
[2024-07-10] MEDS: MIDODRINE 10 MG TABLET PO ×4 (00:25→17:05)
[2024-07-10] MEDS: IPRATROPIUM/ALBUTEROL 3 ML AMPUL.NEB INH ×6 (02:00→22:25)
[2024-07-10] MEDS: BUDESONIDE 0.5 MG/2 ML AMPUL.NEB INH ×2 (06:34→18:00)
[2024-07-10] MEDS: AMIODARONE 200 MG TABLET PO (08:56)
[2024-07-10] MEDS: FAMOTIDINE 20 MG TABLET PO ×2 (09:00→19:59)
[2024-07-10] MEDS: ASCORBIC ACID 500 MG TABLET PO ×2 (09:00→19:59)
[2024-07-10] MEDS: MULTIVITAMIN 1 TAB TABLET PO (09:00)
[2024-07-10] MEDS: DEX/HYPRO/GLY ARTIFICAL TEARS 225 DROP/15 ML BTL BOTH EYES ×2 (09:00→19:59)
[2024-07-10] MEDS: SENNOSIDES 8.6 MG TABLET PO ×2 (09:00→19:59)
[2024-07-10] MEDS: VITAMIN B COMPLEX PO (09:00)
[2024-07-10] MEDS: guaiFENesin Liq 100 MG/5 ML LIQUID PO (11:45)
[2024-07-10] MEDS: ACETAMINOPHEN 325 MG TABLET 650 MG PO (11:45)
[2024-07-10] MEDS: ALPRAZolam 0.5 MG TABLET PO (17:41)
[2024-07-11] VITALS (11 sets, daily range): BP systolic 110–147; BP diastolic 63–67; PULSE 56–81; RESP 14–21; TEMP 36.3–36.5; O2SAT 96–100
[2024-07-11] MEDS: MIDODRINE 10 MG TABLET PO ×3 (00:14→17:35)
[2024-07-11] MEDS: IPRATROPIUM/ALBUTEROL 3 ML AMPUL.NEB INH ×6 (02:34→22:27)
[2024-07-11] MEDS: ALPRAZolam 0.5 MG TABLET PO ×3 (04:20→22:36)
[2024-07-11] MEDS: BUDESONIDE 0.5 MG/2 ML AMPUL.NEB INH ×2 (06:19→18:00)
[2024-07-11] MEDS: ASCORBIC ACID 500 MG TABLET PO ×2 (09:00→20:15)
[2024-07-11] MEDS: FAMOTIDINE 20 MG TABLET PO ×2 (09:00→20:19)
[2024-07-11] MEDS: AMIODARONE 200 MG TABLET PO (09:00)
[2024-07-11] MEDS: DEX/HYPRO/GLY ARTIFICAL TEARS 225 DROP/15 ML BTL BOTH EYES ×2 (09:00→20:15)
[2024-07-11] MEDS: MULTIVITAMIN 1 TAB TABLET PO (09:01)
[2024-07-11] MEDS: SENNOSIDES 8.6 MG TABLET PO ×2 (09:01→20:19)
[2024-07-11] MEDS: VITAMIN B COMPLEX PO (09:02)
[2024-07-11] MEDS: HYDRO PO (09:30)
[2024-07-11] MEDS: ACET PO (09:30)
[2024-07-11] MEDS: ACETAMINOPHEN 325 MG TABLET 650 MG PO (16:22)
[2024-07-11] MEDS: guaiFENesin Liq 100 MG/5 ML LIQUID PO (17:00)
[2024-07-12] VITALS (13 sets, daily range): BP systolic 125–180; BP diastolic 71–83; PULSE 66–92; RESP 14–19; TEMP 35.9–37.2; O2SAT 90–99
[2024-07-12] MEDS: ACET PO ×2 (01:00→11:40)
[2024-07-12] MEDS: HYDRO PO ×2 (01:00→11:40)
[2024-07-12] MEDS: IPRATROPIUM/ALBUTEROL 3 ML AMPUL.NEB INH ×6 (02:10→22:00)
[2024-07-12] MEDS: BUDESONIDE 0.5 MG/2 ML AMPUL.NEB INH ×2 (07:21→18:00)
[2024-07-12] MEDS: ALPRAZolam 0.5 MG TABLET PO ×2 (09:40→19:41)
[2024-07-12] MEDS: AMIODARONE 200 MG TABLET PO (09:42)
[2024-07-12] MEDS: ASCORBIC ACID 500 MG TABLET PO ×2 (09:43→21:00)
[2024-07-12] MEDS: DEX/HYPRO/GLY ARTIFICAL TEARS 225 DROP/15 ML BTL BOTH EYES ×2 (09:43→21:00)
[2024-07-12] MEDS: MULTIVITAMIN 1 TAB TABLET PO (09:44)
[2024-07-12] MEDS: FAMOTIDINE 20 MG TABLET PO ×2 (09:44→21:00)
[2024-07-12] MEDS: guaiFENesin Liq 100 MG/5 ML LIQUID PO ×3 (09:45→19:12)
[2024-07-12] MEDS: SENNOSIDES 8.6 MG TABLET PO ×2 (09:45→21:00)
[2024-07-12] MEDS: VITAMIN B COMPLEX PO (09:45)
--- NOTE | 2024-07-12 13:05 | PD.SAPROG ---
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 (2) Chronic respiratory failure with hypoxia and hypercapnia: Status: Chronic (3) Ventilator dependent: Status: Chronic (4) Congestive heart failure: Status: Chronic (5) Chronic obstructive pulmonary disease, unspecified: Status: Chronic (6) Atrial fibrillation: Status: Chronic (7) Tracheostomy in place: Status: Chronic (8) Chronic anemia: Status: Chronic SUBJECTIVE Fever:: none GI:: none Shortness of Breath:: unchanged GI:: nausea Pain:: none OBJECTIVE Most recent vital signs: Last Vital Signs Temp 97.8 F 07/14/24 00:00 Pulse 77 07/14/24 02:15 Resp 14 07/14/24 02:15 BP 112/60 07/14/24 00:00 Pulse Ox 99 07/14/24 02:15 O2 Del Method Mechanical Ventilation 07/12/24 18:00 FiO2 45 07/14/24 02:15 Neurological:: alert Speech:: nods head, mouths words and appropriate Answers questions:: yes Respiratory:: shallow breathing and rhonchi Cardiovascular: irregular Abdomen: soft Tracheostomy:: to ventilator Feeding per:: po ASSESSMENT & PLAN Assessment: stable. Tolerating ventilatory support. Not weanable because of generalized weakness. Tolerating feeding. Prognosis is very guarded. Patient aware. Family kept aware as well. Discussed with pt this week about setting ET tube in a way so the pt can speak while on Ventilator. pt was satisfied with the settings without compromising ventilation.She requested anti acid for stomach discomfort and was given prn liquid PO. 06/05/24, She was having respiratory stress, settled with anxiety meds, but got a cbc next morning and TLC was elevated sig. without any sig. immature cells and so started empirical Augmenten with plan to repeat CBC in two days to monitor trends which was done and pt stable after antbiotics completed. Pt seems happy. Cell counts improved,afebrile, now having some loose stools and given imodium with improvement, Fluid supplements to prevent dehydration. Tracheostomy revision done surgically. Psychotropics: Xanax 0.5 mgs bid has really done well to settle her anxiety. no side effects seen. She does not do well on lower titration of anxiety meds. No new issues. Plan: Current treatment as well as ventilator settings reviewed and continued.
[2024-07-12] MEDS: MAGNESIUM HYDROXIDE 30 ML ORAL SUSP ML PO (15:45)
[2024-07-12] MEDS: ACETAMINOPHEN 325 MG TABLET 650 MG PO (19:12)
--- NOTE | 2024-07-12 22:45 | PC.RT ---
Pt has been consistently sating 87% throughout the day. Both dayshift COMMERCIAL COLLECTIONS SPECIALIST and security shift manager COMMERCIAL COLLECTIONS SPECIALIST have called RT stating the pt spo2 is low and that she is SOB. fio2 on vent titrated up to 45% and flow to trigger breaths was decreased to help pt in distress. 2200 tx given at the same time. COMMERCIAL COLLECTIONS SPECIALIST is aware of changes made
[2024-07-13] VITALS (13 sets, daily range): BP systolic 102–119; BP diastolic 58–68; PULSE 66–82; RESP 14–17; TEMP 36.1–37.1; O2SAT 96–99
[2024-07-13] MEDS: MIDODRINE 10 MG TABLET PO ×4 (00:13→17:52)
[2024-07-13] MEDS: IPRATROPIUM/ALBUTEROL 3 ML AMPUL.NEB INH ×6 (02:00→22:10)
[2024-07-13] MEDS: ALPRAZolam 0.5 MG TABLET PO ×2 (04:18→14:48)
[2024-07-13] MEDS: BUDESONIDE 0.5 MG/2 ML AMPUL.NEB INH ×2 (06:31→18:00)
[2024-07-13] MEDS: AMIODARONE 200 MG TABLET PO (09:14)
[2024-07-13] MEDS: FAMOTIDINE 20 MG TABLET PO ×2 (09:15→20:11)
[2024-07-13] MEDS: DEX/HYPRO/GLY ARTIFICAL TEARS 225 DROP/15 ML BTL BOTH EYES ×2 (09:15→20:11)
[2024-07-13] MEDS: ASCORBIC ACID 500 MG TABLET PO ×2 (09:15→20:11)
[2024-07-13] MEDS: MULTIVITAMIN 1 TAB TABLET PO (09:15)
[2024-07-13] MEDS: SENNOSIDES 8.6 MG TABLET PO ×2 (09:16→20:11)
[2024-07-13] MEDS: VITAMIN B COMPLEX PO (09:16)
[2024-07-13] MEDS: BISACODYL 10 MG SUPP.RECT PR (11:57)
[2024-07-13] MEDS: ACETAMINOPHEN 325 MG TABLET 650 MG PO (17:52)
[2024-07-13] MEDS: guaiFENesin Liq 100 MG/5 ML LIQUID PO (17:52)
[2024-07-13] MEDS: ACET PO (19:20)
[2024-07-13] MEDS: HYDRO PO (19:20)
[2024-07-14] VITALS (12 sets, daily range): BP systolic 104–145; BP diastolic 57–67; PULSE 67–83; RESP 14–33; TEMP 36.4–36.9; O2SAT 98–100
[2024-07-14] MEDS: IPRATROPIUM/ALBUTEROL 3 ML AMPUL.NEB INH ×6 (02:14→22:00)
[2024-07-14] MEDS: ACETAMINOPHEN 325 MG TABLET 650 MG PO ×2 (02:35→19:16)
[2024-07-14] MEDS: MIDODRINE 10 MG TABLET PO ×3 (05:29→12:30)
[2024-07-14] MEDS: BUDESONIDE 0.5 MG/2 ML AMPUL.NEB INH ×2 (06:10→18:10)
[2024-07-14] MEDS: AMIODARONE 200 MG TABLET PO (08:58)
[2024-07-14] MEDS: ASCORBIC ACID 500 MG TABLET PO ×2 (08:59→20:05)
[2024-07-14] MEDS: FAMOTIDINE 20 MG TABLET PO ×2 (08:59→20:06)
[2024-07-14] MEDS: DEX/HYPRO/GLY ARTIFICAL TEARS 225 DROP/15 ML BTL BOTH EYES ×2 (08:59→20:06)
[2024-07-14] MEDS: MULTIVITAMIN 1 TAB TABLET PO (09:00)
[2024-07-14] MEDS: SENNOSIDES 8.6 MG TABLET PO ×2 (09:00→20:06)
[2024-07-14] MEDS: VITAMIN B COMPLEX PO (09:01)
[2024-07-14] MEDS: ALPRAZolam 0.5 MG TABLET PO ×2 (11:30→19:15)
[2024-07-14] MEDS: ACET PO ×2 (13:48→22:57)
[2024-07-14] MEDS: HYDRO PO ×2 (13:48→22:57)
--- NOTE | 2024-07-14 15:56 | PC.SS ---
This SSD informed by EXERCISE PHYSIOLOGIST resident was seen at the edge of the bed putting on her glasses getting ready to manipulate her ventilator. Resident was redirected by her EXERCISE PHYSIOLOGIST. This SSD spoke with resident at bedside. Resident did acknowledge attempting but not being successful. Resident states she is anxious which leads to her having difficulty breathing. Resident was reminded and educated of the danger in her touching her ventilator and reminded only RT's are to touch the ventilators. resident has a history of becoming disconnected from trach site and manipulating the vent. Resident was informed if it happened again she would be moved closer to the nurses station to be observed. Resident son Francisco Javier Blakely was informed as well and agreed it to be a good idea for her safety. This SSD spoke with DON and informed her of the recent event, plan is to move resident closer to the nurses station for observation due to behaviors of manipulating her ventilator. Resident and RP will be informed when room change will take place.
[2024-07-14] MEDS: guaiFENesin Liq 100 MG/5 ML LIQUID PO (17:00)
[2024-07-15] VITALS (11 sets, daily range): BP systolic 93–139; BP diastolic 60–76; PULSE 61–725; RESP 14–33; TEMP 36.4–36.8; O2SAT 98–99
[2024-07-15] MEDS: IPRATROPIUM/ALBUTEROL 3 ML AMPUL.NEB INH ×6 (02:05→22:10)
[2024-07-15] MEDS: MIDODRINE 10 MG TABLET PO ×3 (05:15→23:25)
[2024-07-15] MEDS: BUDESONIDE 0.5 MG/2 ML AMPUL.NEB INH ×2 (06:05→18:00)
[2024-07-15] MEDS: ALPRAZolam 0.5 MG TABLET PO ×2 (07:15→19:49)
[2024-07-15] MEDS: ACETAMINOPHEN 325 MG TABLET 650 MG PO ×2 (08:00→15:00)
[2024-07-15] MEDS: AMIODARONE 200 MG TABLET PO (09:17)
[2024-07-15] MEDS: ASCORBIC ACID 500 MG TABLET PO ×2 (09:18→20:01)
[2024-07-15] MEDS: DEX/HYPRO/GLY ARTIFICAL TEARS 225 DROP/15 ML BTL BOTH EYES ×2 (09:18→20:01)
[2024-07-15] MEDS: VITAMIN B COMPLEX PO (09:19)
[2024-07-15] MEDS: FAMOTIDINE 20 MG TABLET PO ×2 (09:19→20:01)
[2024-07-15] MEDS: MULTIVITAMIN 1 TAB TABLET PO (09:19)
[2024-07-15] MEDS: SENNOSIDES 8.6 MG TABLET PO ×2 (09:19→20:01)
[2024-07-15] MEDS: ACET PO ×2 (11:00→23:22)
[2024-07-15] MEDS: guaiFENesin Liq 100 MG/5 ML LIQUID PO ×2 (11:00→18:45)
[2024-07-15] MEDS: HYDRO PO ×2 (11:00→23:22)
[2024-07-16] VITALS (13 sets, daily range): BP systolic 94–133; BP diastolic 52–78; PULSE 65–91; RESP 12–18; TEMP 36.1–37; O2SAT 98–99
[2024-07-16] MEDS: IPRATROPIUM/ALBUTEROL 3 ML AMPUL.NEB INH ×6 (02:05→22:15)
[2024-07-16] MEDS: ACETAMINOPHEN 325 MG TABLET 650 MG PO ×2 (02:31→21:09)
[2024-07-16] MEDS: BISACODYL 10 MG SUPP.RECT PR (03:51)
[2024-07-16] MEDS: ALPRAZolam 0.5 MG TABLET PO ×3 (03:52→21:09)
[2024-07-16] MEDS: MIDODRINE 10 MG TABLET PO ×3 (05:03→23:18)
[2024-07-16] MEDS: BUDESONIDE 0.5 MG/2 ML AMPUL.NEB INH ×2 (06:12→18:00)
[2024-07-16] MEDS: SENNOSIDES 8.6 MG TABLET PO ×2 (09:45→20:56)
[2024-07-16] MEDS: FAMOTIDINE 20 MG TABLET PO ×2 (09:45→20:56)
[2024-07-16] MEDS: AMIODARONE 200 MG TABLET PO (09:45)
[2024-07-16] MEDS: DEX/HYPRO/GLY ARTIFICAL TEARS 225 DROP/15 ML BTL BOTH EYES ×2 (09:45→20:55)
[2024-07-16] MEDS: MULTIVITAMIN 1 TAB TABLET PO (09:45)
[2024-07-16] MEDS: VITAMIN B COMPLEX PO (09:45)
[2024-07-16] MEDS: ASCORBIC ACID 500 MG TABLET PO ×2 (09:45→20:54)
[2024-07-16] MEDS: guaiFENesin Liq 100 MG/5 ML LIQUID PO ×2 (10:06→18:04)
--- NOTE | 2024-07-16 13:10 | PD.SAPROG ---
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 (2) Chronic respiratory failure with hypoxia and hypercapnia: Status: Chronic (3) Ventilator dependent: Status: Chronic (4) Congestive heart failure: Status: Chronic (5) Chronic obstructive pulmonary disease, unspecified: Status: Chronic (6) Atrial fibrillation: Status: Chronic (7) Tracheostomy in place: Status: Chronic (8) Chronic anemia: Status: Chronic SUBJECTIVE Fever:: none GI:: none Shortness of Breath:: unchanged GI:: nausea Pain:: none OBJECTIVE Most recent vital signs: Last Vital Signs Temp 98.1 F 07/17/24 17:24 Pulse 72 07/17/24 19:10 Resp 18 07/17/24 19:10 BP 121/62 07/17/24 17:24 Pulse Ox 98 07/17/24 19:10 O2 Del Method Mechanical Ventilation 07/17/24 17:24 FiO2 40 07/17/24 22:00 Neurological:: alert Speech:: nods head, mouths words and appropriate Answers questions:: yes Respiratory:: shallow breathing and rhonchi Cardiovascular: irregular Abdomen: soft Tracheostomy:: to ventilator Feeding per:: po ASSESSMENT & PLAN Assessment: stable. Tolerating ventilatory support. Not weanable because of generalized weakness. Tolerating feeding. Prognosis is very guarded. Patient aware. Family kept aware as well. Discussed with pt this week about setting ET tube in a way so the pt can speak while on Ventilator. pt was satisfied with the settings without compromising ventilation.She requested anti acid for stomach discomfort and was given prn liquid PO. 06/05/24, She was having respiratory stress, settled with anxiety meds, but got a cbc next morning and TLC was elevated sig. without any sig. immature cells and so started empirical Augmenten with plan to repeat CBC in two days to monitor trends which was done and pt stable after antbiotics completed. Pt seems happy. Cell counts improved,afebrile, now having some loose stools and given imodium with improvement, Fluid supplements to prevent dehydration. Tracheostomy revision done surgically. Psychotropics: Xanax 0.5 mgs bid has really done well to settle her anxiety. no side effects seen. She does not do well on lower titration of anxiety meds. No new issues. Plan: Current treatment as well as ventilator settings reviewed and continued.
--- NOTE | 2024-07-16 14:28 | PC.SS ---
Addendum entered by Daniela Negron 07/16/24 14:33: Room visit:Resident is laying in bed with head of the bed elevated with call light properly placed with no signs of distress. Resident is well groomed with no signs of distress. Resident will remain in current care as there are no changes in care or condition, resident remains on vent with trach in place and GT for medication and nutrition. Resident will continue to have all subacute care needs met by staff. Original Note: Room visit:Resident is laying in bed with head of the bed elevated with call light properly placed with no signs of distress. Resident is well groomed with no signs of distress. Resident mother and father are at bedside daily. Resident will remain in current care as there are no changes in care or condition, resident remains on vent with trach in place and GT for medication and nutrition. Resident will continue to have all subacute care needs met by staff.
[2024-07-17] VITALS (12 sets, daily range): BP systolic 105–155; BP diastolic 62–78; PULSE 72–92; RESP 14–29; TEMP 36.1–36.7; O2SAT 97–99
[2024-07-17] MEDS: IPRATROPIUM/ALBUTEROL 3 ML AMPUL.NEB INH ×6 (02:29→23:00)
[2024-07-17] MEDS: MIDODRINE 10 MG TABLET PO ×3 (05:10→22:59)
[2024-07-17] MEDS: BUDESONIDE 0.5 MG/2 ML AMPUL.NEB INH ×2 (07:10→19:10)
--- NOTE | 2024-07-17 07:48 | PC.NURSE ---
Resident found unresponsive by BENNY Sepulveda. Ventilator alarm going off. disconnected res. from mechanical ventilator and start bagging. Called RT Richmond. Set of vital signs were taken 179/94, HR 134, RR 28, resident somewhat responsive, profuse sweetness noted. BS taken 119. O2 saturation at 97% while bagging resident. Slowly resident regained responsiveness. re-assessed vital signs 203/80, 105, RR 26. Notified MD. new orders given. Re-assessed vital signs 135/84, 83. RT troubleshoot Ventilator issues. Resident is now alert and oriented. Will continue to monitor.
[2024-07-17 08:08] LABS: Base Excess 18 (-3-3); HCO3 47 mEq/L (20-26); Inspired Oxygen, FIO2 45 %; O2 Saturation 99 % (91-98); PCO2 103 mmHg (32.0-48.0); PO2 105 mmHg (83-108); pH, Arterial 7.27 (7.35-7.45)
[2024-07-17 08:23] LABS: Allen Test Performed/OK; Puncture Site Right Radial
[2024-07-17] MEDS: AMIODARONE 200 MG TABLET PO (08:47)
[2024-07-17] MEDS: DEX/HYPRO/GLY ARTIFICAL TEARS 225 DROP/15 ML BTL BOTH EYES ×2 (08:47→20:27)
[2024-07-17] MEDS: ASCORBIC ACID 500 MG TABLET PO ×2 (08:47→20:26)
[2024-07-17] MEDS: FAMOTIDINE 20 MG TABLET PO ×2 (08:48→20:27)
[2024-07-17] MEDS: VITAMIN B COMPLEX PO (08:48)
[2024-07-17] MEDS: MULTIVITAMIN 1 TAB TABLET PO (08:48)
[2024-07-17] MEDS: SENNOSIDES 8.6 MG TABLET PO ×2 (08:48→20:27)
[2024-07-17] MEDS: ACETAMINOPHEN 325 MG TABLET 650 MG PO ×2 (10:34→20:24)
[2024-07-17] MEDS: guaiFENesin Liq 100 MG/5 ML LIQUID PO ×2 (10:36→20:25)
[2024-07-17] MEDS: ALPRAZolam 0.5 MG TABLET PO ×2 (11:51→20:25)
[2024-07-17 14:28] LABS: Allen Test Performed/OK; Base Excess 20 (-3-3); HCO3 47 mEq/L (20-26); Inspired Oxygen, FIO2 45 %; O2 Saturation 100 % (91-98); PCO2 82 mmHg (32.0-48.0); PO2 117 mmHg (83-108); Puncture Site Right Radial; pH, Arterial 7.37 (7.35-7.45)
[2024-07-17] MEDS: HYDRO PO (17:31)
[2024-07-17] MEDS: ACET PO (17:31)
--- NOTE | 2024-07-17 18:01 | PC.NURSE ---
After event ocurred this am with resident's unresponsiveness. Family was notified. order set ABG. which it was drawn by Richmond KANG. Received results. Richmond notified MD. received new order to change vent settings and redraw ABG set again 4 hrs after fist ABG. Results were available at around 1530. Railroad Car Cleaning Supervisor called MD to notify of improvement. MD order to maintain same vent settings at this time. Resident remains alert with SOB at times. Will continue to monitor.
[2024-07-18] VITALS (13 sets, daily range): BP systolic 95–149; BP diastolic 59–83; PULSE 72–99; RESP 15–20; TEMP 35.9–36.9; O2SAT 98–100
[2024-07-18] MEDS: HYDRO PO ×3 (01:06→23:00)
[2024-07-18] MEDS: ACET PO ×3 (01:06→23:00)
[2024-07-18] MEDS: IPRATROPIUM/ALBUTEROL 3 ML AMPUL.NEB INH ×6 (03:00→22:10)
[2024-07-18] MEDS: BUDESONIDE 0.5 MG/2 ML AMPUL.NEB INH ×2 (06:17→18:05)
[2024-07-18] MEDS: FAMOTIDINE 20 MG TABLET PO ×2 (09:51→20:15)
[2024-07-18] MEDS: DEX/HYPRO/GLY ARTIFICAL TEARS 225 DROP/15 ML BTL BOTH EYES ×2 (09:51→20:15)
[2024-07-18] MEDS: VITAMIN B COMPLEX PO (09:51)
[2024-07-18] MEDS: SENNOSIDES 8.6 MG TABLET PO ×2 (09:51→20:15)
[2024-07-18] MEDS: ACETAMINOPHEN 325 MG TABLET 650 MG PO ×2 (09:51→16:00)
[2024-07-18] MEDS: ASCORBIC ACID 500 MG TABLET PO ×2 (09:51→20:15)
[2024-07-18] MEDS: MULTIVITAMIN 1 TAB TABLET PO (09:51)
[2024-07-18] MEDS: guaiFENesin Liq 100 MG/5 ML LIQUID PO ×2 (09:52→16:00)
[2024-07-18] MEDS: ALPRAZolam 0.5 MG TABLET PO ×2 (11:39→20:00)
--- NOTE | 2024-07-18 17:37 | PC.NURSE ---
Late entry for this am shift. rn rehabilitation 0750 approx. Nurse BENNY Reyez reported resident has been becoming disconnected 4 times in less that 45 minutes. RT were involved to securing ventilator tubing. Mechanical ventilator had previously been changed the night before. Nurse Aissatou was concerned and worry that resident has purposely being disconnecting herself. Resident was educated by nursing staff and Lead RT Jayleen advising resident not to manipulate ventilator setting and or tubings (resident has previously been noted to manipulate vent settings in the past).Nurse Aissatou moved ventilator to opposite side (RT) to providing more room as resident moves around. Resident was a bit upset after conversation with RT Jayleen. was notified. Mounter E-mailed director [place] and AKUA Suarez regarding this situation and the possibility to move resident closer to nurse station. Hand off report will be giving to Rosanna Beasley noc shift. Resident remained calm all day. no other issues ocurred after morning event.
[2024-07-18] MEDS: MIDODRINE 10 MG TABLET PO (18:05)
[2024-07-19] VITALS (11 sets, daily range): BP systolic 93–119; BP diastolic 58–67; PULSE 67–97; RESP 16–18; TEMP 36.5–37.2; O2SAT 97–99
[2024-07-19] MEDS: MIDODRINE 10 MG TABLET PO ×4 (00:32→18:47)
[2024-07-19] MEDS: ACETAMINOPHEN 325 MG TABLET 650 MG PO (01:05)
[2024-07-19] MEDS: IPRATROPIUM/ALBUTEROL 3 ML AMPUL.NEB INH ×6 (02:27→22:29)
[2024-07-19] MEDS: BUDESONIDE 0.5 MG/2 ML AMPUL.NEB INH ×2 (06:17→18:00)
[2024-07-19] MEDS: AMIODARONE 200 MG TABLET PO (09:24)
[2024-07-19] MEDS: DEX/HYPRO/GLY ARTIFICAL TEARS 225 DROP/15 ML BTL BOTH EYES ×2 (09:25→21:10)
[2024-07-19] MEDS: FAMOTIDINE 20 MG TABLET PO ×2 (09:25→21:10)
[2024-07-19] MEDS: MULTIVITAMIN 1 TAB TABLET PO (09:25)
[2024-07-19] MEDS: ASCORBIC ACID 500 MG TABLET PO ×2 (09:25→21:10)
[2024-07-19] MEDS: SENNOSIDES 8.6 MG TABLET PO ×2 (09:28→21:10)
[2024-07-19] MEDS: VITAMIN B COMPLEX PO (09:28)
[2024-07-19] MEDS: guaiFENesin Liq 100 MG/5 ML LIQUID PO ×2 (18:30)
[2024-07-19] MEDS: ACET PO (21:15)
[2024-07-19] MEDS: HYDRO PO (21:15)
[2024-07-19] MEDS: MAGNESIUM HYDROXIDE 30 ML ORAL SUSP ML PO (22:30)
[2024-07-20] VITALS (13 sets, daily range): BP systolic 91–116; BP diastolic 54–59; PULSE 66–86; RESP 15–22; TEMP 36.1–37.4; O2SAT 98–100
[2024-07-20] MEDS: MIDODRINE 10 MG TABLET PO ×4 (00:20→18:00)
[2024-07-20] MEDS: guaiFENesin Liq 100 MG/5 ML LIQUID PO ×3 (01:02→16:00)
[2024-07-20] MEDS: IPRATROPIUM/ALBUTEROL 3 ML AMPUL.NEB INH ×6 (02:16→22:21)
[2024-07-20] MEDS: BUDESONIDE 0.5 MG/2 ML AMPUL.NEB INH ×2 (05:57→18:36)
[2024-07-20] MEDS: DEX/HYPRO/GLY ARTIFICAL TEARS 225 DROP/15 ML BTL BOTH EYES ×2 (08:04→20:57)
[2024-07-20] MEDS: SENNOSIDES 8.6 MG TABLET PO ×2 (08:04→20:57)
[2024-07-20] MEDS: AMIODARONE 200 MG TABLET PO (08:04)
[2024-07-20] MEDS: FAMOTIDINE 20 MG TABLET PO ×2 (08:04→20:57)
[2024-07-20] MEDS: ASCORBIC ACID 500 MG TABLET PO ×2 (08:04→20:57)
[2024-07-20] MEDS: VITAMIN B COMPLEX PO (08:05)
[2024-07-20] MEDS: MULTIVITAMIN 1 TAB TABLET PO (08:05)
[2024-07-20] MEDS: ACETAMINOPHEN 325 MG TABLET 650 MG PO ×2 (10:00→21:00)
[2024-07-20] MEDS: BISACODYL 10 MG SUPP.RECT PR (16:10)
[2024-07-20] MEDS: ALPRAZolam 0.5 MG TABLET PO ×2 (19:28)
--- NOTE | 2024-07-20 21:46 | PD.SAPROG ---
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 (2) Chronic respiratory failure with hypoxia and hypercapnia: Status: Chronic (3) Ventilator dependent: Status: Chronic (4) Congestive heart failure: Status: Chronic (5) Chronic obstructive pulmonary disease, unspecified: Status: Chronic (6) Atrial fibrillation: Status: Chronic (7) Tracheostomy in place: Status: Chronic (8) Chronic anemia: Status: Chronic SUBJECTIVE Fever:: none GI:: none Shortness of Breath:: unchanged GI:: nausea Pain:: none OBJECTIVE Most recent vital signs: Last Vital Signs Temp 99.3 F 07/20/24 18:00 Pulse 75 07/20/24 18:37 Resp 22 H 07/20/24 18:37 BP 112/59 L 07/20/24 18:00 Pulse Ox 100 07/20/24 18:37 O2 Del Method Mechanical Ventilation 07/20/24 05:47 FiO2 45 07/20/24 18:37 Neurological:: alert Speech:: nods head, mouths words and appropriate Answers questions:: yes Respiratory:: shallow breathing and rhonchi Cardiovascular: irregular Abdomen: soft Tracheostomy:: to ventilator Feeding per:: po ASSESSMENT & PLAN Assessment: stable. Tolerating ventilatory support. Not weanable because of generalized weakness. Tolerating feeding. Prognosis is very guarded. Patient aware. Family kept aware as well. Discussed with pt this week about setting ET tube in a way so the pt can speak while on Ventilator. pt was satisfied with the settings without compromising ventilation.She requested anti acid for stomach discomfort and was given prn liquid PO. 06/05/24, She was having respiratory stress, settled with anxiety meds, but got a cbc next morning and TLC was elevated sig. without any sig. immature cells and so started empirical Augmenten with plan to repeat CBC in two days to monitor trends which was done and pt stable after antbiotics completed. Pt seems happy. Cell counts improved,afebrile, now having some loose stools and given imodium with improvement, Fluid supplements to prevent dehydration. Tracheostomy revision done surgically. Psychotropics: Xanax 0.5 mgs bid has really done well to settle her anxiety. no side effects seen. She does not do well on lower titration of anxiety meds. No new issues. Plan: Current treatment as well as ventilator settings reviewed and continued.
[2024-07-20] MEDS: ACET PO (21:51)
[2024-07-20] MEDS: HYDRO PO (21:51)
[2024-07-21] VITALS (12 sets, daily range): BP systolic 96–108; BP diastolic 48–61; PULSE 61–77; RESP 16; TEMP 36–37.1; O2SAT 97–100
[2024-07-21] MEDS: MIDODRINE 10 MG TABLET PO ×5 (00:12→23:03)
[2024-07-21] MEDS: IPRATROPIUM/ALBUTEROL 3 ML AMPUL.NEB INH ×6 (02:05→22:12)
[2024-07-21] MEDS: guaiFENesin Liq 100 MG/5 ML LIQUID PO ×3 (02:15→16:04)
[2024-07-21] MEDS: ACETAMINOPHEN 325 MG TABLET 650 MG PO ×2 (03:00→16:00)
[2024-07-21] MEDS: BUDESONIDE 0.5 MG/2 ML AMPUL.NEB INH ×2 (06:00→18:14)
[2024-07-21] MEDS: ALPRAZolam 0.5 MG TABLET PO ×2 (08:00→20:33)
[2024-07-21] MEDS: ASCORBIC ACID 500 MG TABLET PO ×2 (09:06→20:31)
[2024-07-21] MEDS: DEX/HYPRO/GLY ARTIFICAL TEARS 225 DROP/15 ML BTL BOTH EYES ×2 (09:06→20:32)
[2024-07-21] MEDS: MULTIVITAMIN 1 TAB TABLET PO (09:07)
[2024-07-21] MEDS: FAMOTIDINE 20 MG TABLET PO ×2 (09:07→20:33)
[2024-07-21] MEDS: SENNOSIDES 8.6 MG TABLET PO ×2 (09:08→20:33)
[2024-07-21] MEDS: VITAMIN B COMPLEX PO (09:08)
[2024-07-21] MEDS: ACET PO ×2 (11:36→21:51)
[2024-07-21] MEDS: HYDRO PO ×2 (11:36→21:51)
[2024-07-22] VITALS (13 sets, daily range): BP systolic 90–119; BP diastolic 52–81; PULSE 60–90; RESP 15–18; TEMP 36.6–36.8; O2SAT 98–100
[2024-07-22] MEDS: IPRATROPIUM/ALBUTEROL 3 ML AMPUL.NEB INH ×6 (02:38→22:03)
[2024-07-22] MEDS: guaiFENesin Liq 100 MG/5 ML LIQUID PO ×3 (03:20→18:16)
[2024-07-22] MEDS: ACETAMINOPHEN 325 MG TABLET 650 MG PO ×2 (03:20→15:54)
[2024-07-22] MEDS: MIDODRINE 10 MG TABLET PO ×4 (05:15→23:12)
[2024-07-22] MEDS: BUDESONIDE 0.5 MG/2 ML AMPUL.NEB INH ×2 (05:52→18:34)
[2024-07-22] MEDS: AMIODARONE 200 MG TABLET PO (10:08)
[2024-07-22] MEDS: ACET PO ×2 (10:15→23:08)
[2024-07-22] MEDS: HYDRO PO ×2 (10:15→23:08)
[2024-07-22] MEDS: ASCORBIC ACID 500 MG TABLET PO ×2 (10:17→21:09)
[2024-07-22] MEDS: DEX/HYPRO/GLY ARTIFICAL TEARS 225 DROP/15 ML BTL BOTH EYES ×2 (10:18→21:09)
[2024-07-22] MEDS: MULTIVITAMIN 1 TAB TABLET PO (10:18)
[2024-07-22] MEDS: FAMOTIDINE 20 MG TABLET PO ×2 (10:18→21:09)
--- NOTE | 2024-07-22 10:18 | PC.SS ---
Room visit: Resident is laying in bed with head of the bed elevated with call light properly placed with no signs of distress. This SSD sat at bedside and discussed her feelings, resident stated she is not having any feelings of sadness but does feel her breathing has worsen which makes her anxious. She discussed being accused of self disconnecting her tubing, she denies doing it. She did acknowledge manipulating vent and stating she would not do it again. Resident denies any feelings of depression, being hopeless or despair. This SSD offered emotional support and informed resident it is available at all times as needed. Resident was more concentrated on her 1000 breathing treatment rather than having further discussion or room visit. Resident sleeps more through the day and appears to have puffiness to her face. Resident refuses to move closer to the nurses station, she continues to have weekly visits from her son Francisco Javier Blakely, spiritual care visits from cardiographer and spiritual volunteers, she prefers not to participate in any out of room activities. This SSD will continue to make daily contact with resident and monitor for changes in mood and behavior.
[2024-07-22] MEDS: SENNOSIDES 8.6 MG TABLET PO ×2 (10:19→21:10)
[2024-07-22] MEDS: VITAMIN B COMPLEX PO (10:21)
--- NOTE | 2024-07-22 12:20 | PC.SS ---
Room visit: Resident is laying in bed with head of the bed elevated with call light properly placed with no signs of distress. Resident has no changes in care or condition. Resident remains on vent with trach in place and GT for medication and nutrition. Resident will continue to have all subacute care needs met by staff. SSD will continue to make daily room visits and monitor for changes in mood and behavior.
[2024-07-22] MEDS: ALPRAZolam 0.5 MG TABLET PO (19:32)
[2024-07-23] VITALS (11 sets, daily range): BP systolic 101–124; BP diastolic 57–63; PULSE 61–93; RESP 16–20; TEMP 36.2–36.8; O2SAT 98–100
[2024-07-23] MEDS: IPRATROPIUM/ALBUTEROL 3 ML AMPUL.NEB INH ×6 (02:27→22:30)
[2024-07-23] MEDS: guaiFENesin Liq 100 MG/5 ML LIQUID PO ×3 (03:35→23:05)
[2024-07-23] MEDS: MIDODRINE 10 MG TABLET PO ×3 (05:14→17:28)
[2024-07-23] MEDS: BUDESONIDE 0.5 MG/2 ML AMPUL.NEB INH ×2 (06:00→18:00)
[2024-07-23] MEDS: ACETAMINOPHEN 325 MG TABLET 650 MG PO ×2 (06:06→23:00)
[2024-07-23] MEDS: DEX/HYPRO/GLY ARTIFICAL TEARS 225 DROP/15 ML BTL BOTH EYES ×2 (09:39→20:21)
[2024-07-23] MEDS: FAMOTIDINE 20 MG TABLET PO ×2 (09:39→20:21)
[2024-07-23] MEDS: MULTIVITAMIN 1 TAB TABLET PO (09:40)
[2024-07-23] MEDS: SENNOSIDES 8.6 MG TABLET PO ×2 (09:40→20:21)
[2024-07-23] MEDS: VITAMIN B COMPLEX PO (09:41)
[2024-07-23] MEDS: AMIODARONE 200 MG TABLET PO (10:37)
[2024-07-23] MEDS: ASCORBIC ACID 500 MG TABLET PO ×2 (10:38→20:21)
[2024-07-23] MEDS: ALPRAZolam 0.5 MG TABLET PO (10:57)
[2024-07-23] MEDS: ACET PO (15:12)
[2024-07-23] MEDS: HYDRO PO (15:12)
[2024-07-24] VITALS (11 sets, daily range): BP systolic 93–129; BP diastolic 48–70; PULSE 60–88; RESP 16–19; TEMP 36.1–37; O2SAT 97–100
[2024-07-24] MEDS: ALPRAZolam 0.5 MG TABLET PO ×3 (00:30→21:08)
[2024-07-24] MEDS: IPRATROPIUM/ALBUTEROL 3 ML AMPUL.NEB INH ×6 (02:10→22:30)
[2024-07-24] MEDS: MIDODRINE 10 MG TABLET PO ×3 (05:41→23:26)
[2024-07-24] MEDS: BUDESONIDE 0.5 MG/2 ML AMPUL.NEB INH ×2 (07:05→18:00)
[2024-07-24] MEDS: ACETAMINOPHEN 325 MG TABLET 650 MG PO ×2 (07:30→21:26)
[2024-07-24] MEDS: VITAMIN B COMPLEX PO (08:00)
[2024-07-24] MEDS: guaiFENesin Liq 100 MG/5 ML LIQUID PO ×3 (08:00→21:26)
[2024-07-24] MEDS: DEX/HYPRO/GLY ARTIFICAL TEARS 225 DROP/15 ML BTL BOTH EYES ×2 (08:00→21:03)
[2024-07-24] MEDS: ASCORBIC ACID 500 MG TABLET PO ×2 (08:00→21:03)
[2024-07-24] MEDS: FAMOTIDINE 20 MG TABLET PO ×2 (08:00→21:03)
[2024-07-24] MEDS: SENNOSIDES 8.6 MG TABLET PO ×2 (08:00→21:04)
[2024-07-24] MEDS: MULTIVITAMIN 1 TAB TABLET PO (08:00)
[2024-07-24] MEDS: ACET PO (11:30)
[2024-07-24] MEDS: HYDRO PO (11:30)
--- NOTE | 2024-07-24 19:41 | PD.SAPROG ---
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 (2) Chronic respiratory failure with hypoxia and hypercapnia: Status: Chronic (3) Ventilator dependent: Status: Chronic (4) Congestive heart failure: Status: Chronic (5) Chronic obstructive pulmonary disease, unspecified: Status: Chronic (6) Atrial fibrillation: Status: Chronic (7) Tracheostomy in place: Status: Chronic (8) Chronic anemia: Status: Chronic SUBJECTIVE Fever:: none GI:: none Shortness of Breath:: unchanged GI:: nausea Pain:: none OBJECTIVE Most recent vital signs: Last Vital Signs Temp 97.0 F 07/24/24 18:00 Pulse 77 07/24/24 18:00 Resp 19 07/24/24 18:00 BP 110/70 07/24/24 18:00 Pulse Ox 98 07/24/24 14:00 O2 Del Method Mechanical Ventilation 07/24/24 06:00 FiO2 45 07/24/24 14:00 Neurological:: alert Speech:: nods head, mouths words and appropriate Answers questions:: yes Respiratory:: shallow breathing and rhonchi Cardiovascular: irregular Abdomen: soft Tracheostomy:: to ventilator Feeding per:: po ASSESSMENT & PLAN Assessment: stable. Tolerating ventilatory support. Not weanable because of generalized weakness. Tolerating feeding. Prognosis is very guarded. Patient aware. Family kept aware as well. Discussed with pt this week about setting ET tube in a way so the pt can speak while on Ventilator. pt was satisfied with the settings without compromising ventilation.She requested anti acid for stomach discomfort and was given prn liquid PO. 06/05/24, She was having respiratory stress, settled with anxiety meds, but got a cbc next morning and TLC was elevated sig. without any sig. immature cells and so started empirical Augmenten with plan to repeat CBC in two days to monitor trends which was done and pt stable after antbiotics completed. Pt seems happy. Cell counts improved,afebrile, now having some loose stools and given imodium with improvement, Fluid supplements to prevent dehydration. Tracheostomy revision done surgically. Psychotropics: Xanax 0.5 mgs bid has really done well to settle her anxiety. no side effects seen. She does not do well on lower titration of anxiety meds. No new issues. Plan: Current treatment as well as ventilator settings reviewed and continued.
[2024-07-25] VITALS (13 sets, daily range): BP systolic 102–134; BP diastolic 56–72; PULSE 64–86; RESP 16–20; TEMP 36.1–36.9; O2SAT 96–100
[2024-07-25] MEDS: HYDRO PO ×2 (02:17→17:44)
[2024-07-25] MEDS: ACET PO ×2 (02:17→17:44)
[2024-07-25] MEDS: IPRATROPIUM/ALBUTEROL 3 ML AMPUL.NEB INH ×6 (03:00→22:20)
[2024-07-25] MEDS: ACETAMINOPHEN 325 MG TABLET 650 MG PO ×2 (03:59→23:30)
[2024-07-25] MEDS: MIDODRINE 10 MG TABLET PO (05:08)
[2024-07-25] MEDS: BUDESONIDE 0.5 MG/2 ML AMPUL.NEB INH ×2 (07:05→18:13)
[2024-07-25] MEDS: FAMOTIDINE 20 MG TABLET PO ×2 (09:23→20:34)
[2024-07-25] MEDS: ASCORBIC ACID 500 MG TABLET PO ×2 (09:23→20:34)
[2024-07-25] MEDS: DEX/HYPRO/GLY ARTIFICAL TEARS 225 DROP/15 ML BTL BOTH EYES ×2 (09:23→20:34)
[2024-07-25] MEDS: AMIODARONE 200 MG TABLET PO (09:23)
[2024-07-25] MEDS: SENNOSIDES 8.6 MG TABLET PO ×2 (09:24→20:34)
[2024-07-25] MEDS: VITAMIN B COMPLEX PO (09:24)
[2024-07-25] MEDS: MULTIVITAMIN 1 TAB TABLET PO (09:24)
[2024-07-25] MEDS: guaiFENesin Liq 100 MG/5 ML LIQUID PO ×2 (09:25→23:30)
[2024-07-25] MEDS: ALPRAZolam 0.5 MG TABLET PO ×2 (11:52→20:30)
[2024-07-26] VITALS (12 sets, daily range): BP systolic 95–125; BP diastolic 53–67; PULSE 62–87; RESP 16–20; TEMP 36.5–37.1; O2SAT 98–100
[2024-07-26] MEDS: MIDODRINE 10 MG TABLET PO ×4 (00:15→18:06)
[2024-07-26] MEDS: HYDRO PO ×2 (01:43→21:08)
[2024-07-26] MEDS: ACET PO ×2 (01:43→21:08)
--- NOTE | 2024-07-26 01:45 | PC.RT ---
vent alarming went to assess pt, blue part after svn connection found disconnected, connected circuit immediately, no distress noted spo2 95%, hr 78, RR22, pt coughing however refused suction.
[2024-07-26] MEDS: IPRATROPIUM/ALBUTEROL 3 ML AMPUL.NEB INH ×6 (02:18→22:00)
[2024-07-26] MEDS: BUDESONIDE 0.5 MG/2 ML AMPUL.NEB INH ×2 (06:00→19:05)
[2024-07-26] MEDS: ALPRAZolam 0.5 MG TABLET PO ×2 (08:00→16:43)
[2024-07-26] MEDS: AMIODARONE 200 MG TABLET PO (08:00)
[2024-07-26] MEDS: guaiFENesin Liq 100 MG/5 ML LIQUID PO ×3 (08:00→23:00)
[2024-07-26] MEDS: DEX/HYPRO/GLY ARTIFICAL TEARS 225 DROP/15 ML BTL BOTH EYES ×2 (08:01→21:08)
[2024-07-26] MEDS: SENNOSIDES 8.6 MG TABLET PO ×2 (08:01→21:08)
[2024-07-26] MEDS: FAMOTIDINE 20 MG TABLET PO ×2 (08:01→21:08)
[2024-07-26] MEDS: VITAMIN B COMPLEX PO (08:01)
[2024-07-26] MEDS: MULTIVITAMIN 1 TAB TABLET PO (08:01)
[2024-07-26] MEDS: ASCORBIC ACID 500 MG TABLET PO ×2 (08:01→21:08)
[2024-07-26] MEDS: ACETAMINOPHEN 325 MG TABLET 650 MG PO ×2 (15:18→23:00)
[2024-07-27] VITALS (13 sets, daily range): BP systolic 118–181; BP diastolic 64–78; PULSE 55–86; RESP 16–20; TEMP 36.3–37.2; O2SAT 99–100
[2024-07-27] MEDS: IPRATROPIUM/ALBUTEROL 3 ML AMPUL.NEB INH ×6 (02:30→23:04)
[2024-07-27] MEDS: BUDESONIDE 0.5 MG/2 ML AMPUL.NEB INH ×2 (06:44→19:03)
[2024-07-27] MEDS: guaiFENesin Liq 100 MG/5 ML LIQUID PO ×2 (07:30→21:05)
[2024-07-27] MEDS: ALPRAZolam 0.5 MG TABLET PO ×2 (07:30→16:30)
[2024-07-27] MEDS: AMIODARONE 200 MG TABLET PO (09:33)
[2024-07-27] MEDS: FAMOTIDINE 20 MG TABLET PO ×2 (09:34→20:43)
[2024-07-27] MEDS: ASCORBIC ACID 500 MG TABLET PO ×2 (09:34→20:42)
[2024-07-27] MEDS: DEX/HYPRO/GLY ARTIFICAL TEARS 225 DROP/15 ML BTL BOTH EYES ×2 (09:34→20:42)
[2024-07-27] MEDS: SENNOSIDES 8.6 MG TABLET PO ×2 (09:36→20:43)
[2024-07-27] MEDS: VITAMIN B COMPLEX PO (09:36)
[2024-07-27] MEDS: MULTIVITAMIN 1 TAB TABLET PO (09:36)
[2024-07-27] MEDS: ACET PO (11:00)
[2024-07-27] MEDS: HYDRO PO (11:00)
[2024-07-27] MEDS: MIDODRINE 10 MG TABLET PO (17:35)
[2024-07-27] MEDS: ACETAMINOPHEN 325 MG TABLET 650 MG PO (19:30)
--- NOTE | 2024-07-27 23:46 | PC.RT ---
vent started alarming partial occlussion pressure post tx, pt complaining of sob post tx, no changes on bs, suction a moderate amount of thick yellow sputum, spo2 at 100% hr in the 80s, pt reposition with help of CRUSHER FEEDER, expiratory filter changed alarm resolved, pulse ox assessed again at 2335, spo2 100% hr in the 80s, RR 22, nurse aware.
[2024-07-28] VITALS (13 sets, daily range): BP systolic 94–158; BP diastolic 59–74; PULSE 62–89; RESP 15–24; TEMP 36.1–37.7; O2SAT 98–100
[2024-07-28] MEDS: ALPRAZolam 0.5 MG TABLET PO ×3 (00:05→22:05)
[2024-07-28] MEDS: IPRATROPIUM/ALBUTEROL 3 ML AMPUL.NEB INH ×6 (02:10→22:25)
[2024-07-28] MEDS: MIDODRINE 10 MG TABLET PO (05:53)
[2024-07-28] MEDS: BUDESONIDE 0.5 MG/2 ML AMPUL.NEB INH ×2 (06:40→18:55)
[2024-07-28] MEDS: ASCORBIC ACID 500 MG TABLET PO ×2 (08:00→20:24)
[2024-07-28] MEDS: DEX/HYPRO/GLY ARTIFICAL TEARS 225 DROP/15 ML BTL BOTH EYES ×2 (08:00→20:24)
[2024-07-28] MEDS: FAMOTIDINE 20 MG TABLET PO ×2 (08:00→20:24)
[2024-07-28] MEDS: VITAMIN B COMPLEX PO (08:00)
[2024-07-28] MEDS: guaiFENesin Liq 100 MG/5 ML LIQUID PO ×3 (08:00→22:00)
[2024-07-28] MEDS: MULTIVITAMIN 1 TAB TABLET PO (08:00)
[2024-07-28] MEDS: AMIODARONE 200 MG TABLET PO (08:00)
[2024-07-28] MEDS: ACETAMINOPHEN 325 MG TABLET 650 MG PO ×2 (08:00→20:25)
[2024-07-28] MEDS: SENNOSIDES 8.6 MG TABLET PO ×2 (08:00→20:24)
--- NOTE | 2024-07-28 13:10 | PD.SAPROG ---
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 (2) Chronic respiratory failure with hypoxia and hypercapnia: Status: Chronic (3) Ventilator dependent: Status: Chronic (4) Congestive heart failure: Status: Chronic (5) Chronic obstructive pulmonary disease, unspecified: Status: Chronic (6) Atrial fibrillation: Status: Chronic (7) Tracheostomy in place: Status: Chronic (8) Chronic anemia: Status: Chronic SUBJECTIVE Fever:: none GI:: none Shortness of Breath:: unchanged GI:: nausea Pain:: none OBJECTIVE Most recent vital signs: Last Vital Signs Temp 97.9 F 07/29/24 17:39 Pulse 77 07/29/24 17:39 Resp 16 07/29/24 17:39 BP 114/69 07/29/24 17:39 Pulse Ox 96 07/29/24 17:39 O2 Del Method Mechanical Ventilation 07/29/24 17:39 FiO2 45 07/29/24 14:16 Neurological:: alert Speech:: nods head, mouths words and appropriate Answers questions:: yes Respiratory:: shallow breathing and rhonchi Cardiovascular: irregular Abdomen: soft Tracheostomy:: to ventilator Feeding per:: po ASSESSMENT & PLAN Assessment: stable. Tolerating ventilatory support. Not weanable because of generalized weakness. Tolerating feeding. Prognosis is very guarded. Patient aware. Family kept aware as well. Discussed with pt this week about setting ET tube in a way so the pt can speak while on Ventilator. pt was satisfied with the settings without compromising ventilation.She requested anti acid for stomach discomfort and was given prn liquid PO. 06/05/24, She was having respiratory stress, settled with anxiety meds, but got a cbc next morning and TLC was elevated sig. without any sig. immature cells and so started empirical Augmenten with plan to repeat CBC in two days to monitor trends which was done and pt stable after antbiotics completed. Pt seems happy. Cell counts improved,afebrile, now having some loose stools and given imodium with improvement, Fluid supplements to prevent dehydration. Tracheostomy revision done surgically. Psychotropics: Xanax 0.5 mgs bid has really done well to settle her anxiety. no side effects seen. She does not do well on lower titration of anxiety meds. No new issues. Plan: Current treatment as well as ventilator settings reviewed and continued.
[2024-07-28] MEDS: ACET PO (16:20)
[2024-07-28] MEDS: HYDRO PO (16:20)
[2024-07-29] VITALS (13 sets, daily range): BP systolic 93–132; BP diastolic 44–69; PULSE 59–96; RESP 16–18; TEMP 35.9–36.6; O2SAT 96–100
[2024-07-29] MEDS: MIDODRINE 10 MG TABLET PO ×4 (00:12→23:05)
[2024-07-29] MEDS: IPRATROPIUM/ALBUTEROL 3 ML AMPUL.NEB INH ×6 (02:00→22:35)
[2024-07-29] MEDS: HYDRO PO ×3 (03:30→23:05)
[2024-07-29] MEDS: ACET PO ×3 (03:30→23:05)
[2024-07-29] MEDS: BUDESONIDE 0.5 MG/2 ML AMPUL.NEB INH ×2 (06:51→18:35)
[2024-07-29] MEDS: AMIODARONE 200 MG TABLET PO (09:04)
[2024-07-29] MEDS: FAMOTIDINE 20 MG TABLET PO ×2 (09:05→20:18)
[2024-07-29] MEDS: ASCORBIC ACID 500 MG TABLET PO ×2 (09:05→20:17)
[2024-07-29] MEDS: DEX/HYPRO/GLY ARTIFICAL TEARS 225 DROP/15 ML BTL BOTH EYES ×2 (09:05→20:17)
[2024-07-29] MEDS: MULTIVITAMIN 1 TAB TABLET PO (09:05)
[2024-07-29] MEDS: VITAMIN B COMPLEX PO (09:06)
[2024-07-29] MEDS: SENNOSIDES 8.6 MG TABLET PO ×2 (09:06→20:18)
[2024-07-29] MEDS: ACETAMINOPHEN 325 MG TABLET 650 MG PO (09:09)
[2024-07-29] MEDS: guaiFENesin Liq 100 MG/5 ML LIQUID PO ×2 (11:45→19:26)
[2024-07-29] MEDS: ALPRAZolam 0.5 MG TABLET PO ×2 (11:45→20:27)
[2024-07-30] VITALS (13 sets, daily range): BP systolic 109–119; BP diastolic 55–70; PULSE 57–81; RESP 16–18; TEMP 36.1–36.9; O2SAT 96–100
[2024-07-30] MEDS: IPRATROPIUM/ALBUTEROL 3 ML AMPUL.NEB INH ×6 (02:17→22:12)
[2024-07-30] MEDS: ALPRAZolam 0.5 MG TABLET PO ×3 (04:06→23:54)
[2024-07-30] MEDS: MIDODRINE 10 MG TABLET PO ×3 (05:36→17:25)
[2024-07-30] MEDS: BUDESONIDE 0.5 MG/2 ML AMPUL.NEB INH ×2 (06:07→18:25)
[2024-07-30] MEDS: HYDRO PO ×2 (08:00→21:28)
[2024-07-30] MEDS: ACET PO ×2 (08:00→21:28)
[2024-07-30] MEDS: AMIODARONE 200 MG TABLET PO (09:40)
[2024-07-30] MEDS: ASCORBIC ACID 500 MG TABLET PO ×2 (09:41→21:05)
[2024-07-30] MEDS: DEX/HYPRO/GLY ARTIFICAL TEARS 225 DROP/15 ML BTL BOTH EYES ×2 (09:41→21:05)
[2024-07-30] MEDS: FAMOTIDINE 20 MG TABLET PO ×2 (09:41→21:05)
[2024-07-30] MEDS: SENNOSIDES 8.6 MG TABLET PO ×2 (09:42→21:06)
[2024-07-30] MEDS: MULTIVITAMIN 1 TAB TABLET PO (09:42)
[2024-07-30] MEDS: VITAMIN B COMPLEX PO (09:42)
[2024-07-30] MEDS: ACETAMINOPHEN 325 MG TABLET 650 MG PO (11:01)
--- NOTE | 2024-07-30 11:22 | PC.SS ---
This SSD was informed by staff resident has asked if she asks to be taken off ventilator if it is considered suicide this ssd also informed resident brother came in for bedside visit and asked Lic. questions regarding resident coming off ventilator. This SSD spoke with resident regarding these questions, resident denied ever asking and said she was fine with vent in place. This SSD offered resident support and encouraged her to express herself freely. This SSD will continue to make contact with resident and offer emotional support.
[2024-07-30] MEDS: guaiFENesin Liq 100 MG/5 ML LIQUID PO ×2 (16:15→23:54)
--- NOTE | 2024-07-30 20:59 | PD.SAPROG ---
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 (2) Chronic respiratory failure with hypoxia and hypercapnia: Status: Chronic (3) Ventilator dependent: Status: Chronic (4) Congestive heart failure: Status: Chronic (5) Chronic obstructive pulmonary disease, unspecified: Status: Chronic (6) Atrial fibrillation: Status: Chronic (7) Tracheostomy in place: Status: Chronic (8) Chronic anemia: Status: Chronic SUBJECTIVE Fever:: none GI:: none Shortness of Breath:: unchanged GI:: nausea Pain:: none OBJECTIVE Most recent vital signs: Last Vital Signs Temp 98.4 F 07/30/24 17:47 Pulse 81 07/30/24 18:25 Resp 16 07/30/24 18:25 BP 116/65 07/30/24 17:47 Pulse Ox 100 07/30/24 18:25 O2 Del Method Mechanical Ventilation 07/30/24 17:47 FiO2 45 07/30/24 18:25 Neurological:: alert Speech:: nods head, mouths words and appropriate Answers questions:: yes Respiratory:: shallow breathing and rhonchi Cardiovascular: irregular Abdomen: soft Tracheostomy:: to ventilator Feeding per:: po ASSESSMENT & PLAN Assessment: stable. Tolerating ventilatory support. Not weanable because of generalized weakness. Tolerating feeding. Prognosis is very guarded. Patient aware. Family kept aware as well. Discussed with pt this week about setting ET tube in a way so the pt can speak while on Ventilator. pt was satisfied with the settings without compromising ventilation.She requested anti acid for stomach discomfort and was given prn liquid PO. 06/05/24, She was having respiratory stress, settled with anxiety meds, but got a cbc next morning and TLC was elevated sig. without any sig. immature cells and so started empirical Augmenten with plan to repeat CBC in two days to monitor trends which was done and pt stable after antbiotics completed. Pt seems happy. Cell counts improved,afebrile, now having some loose stools and given imodium with improvement, Fluid supplements to prevent dehydration. Tracheostomy revision done surgically. Psychotropics: Xanax 0.5 mgs bid has really done well to settle her anxiety. no side effects seen. She does not do well on lower titration of anxiety meds. No new issues. Plan: Current treatment as well as ventilator settings reviewed and continued.
[2024-07-31] VITALS (13 sets, daily range): BP systolic 98–121; BP diastolic 50–69; PULSE 59–94; RESP 16–19; TEMP 36.2–36.9; O2SAT 97–100
[2024-07-31] MEDS: IPRATROPIUM/ALBUTEROL 3 ML AMPUL.NEB INH ×6 (02:14→22:08)
[2024-07-31] MEDS: ACETAMINOPHEN 325 MG TABLET 650 MG PO ×2 (03:00→20:25)
[2024-07-31] MEDS: MIDODRINE 10 MG TABLET PO ×4 (05:24→23:37)
[2024-07-31] MEDS: BUDESONIDE 0.5 MG/2 ML AMPUL.NEB INH ×2 (06:05→18:29)
[2024-07-31] MEDS: ASCORBIC ACID 500 MG TABLET PO ×2 (08:01→20:24)
[2024-07-31] MEDS: ALPRAZolam 0.5 MG TABLET PO ×2 (08:01→15:55)
[2024-07-31] MEDS: MULTIVITAMIN 1 TAB TABLET PO (08:01)
[2024-07-31] MEDS: SENNOSIDES 8.6 MG TABLET PO ×2 (08:01→20:25)
[2024-07-31] MEDS: FAMOTIDINE 20 MG TABLET PO ×2 (08:01→20:25)
[2024-07-31] MEDS: AMIODARONE 200 MG TABLET PO (08:01)
[2024-07-31] MEDS: VITAMIN B COMPLEX PO (08:01)
[2024-07-31] MEDS: DEX/HYPRO/GLY ARTIFICAL TEARS 225 DROP/15 ML BTL BOTH EYES ×2 (08:01→20:25)
[2024-07-31] MEDS: guaiFENesin Liq 100 MG/5 ML LIQUID PO ×2 (08:02→15:55)
--- NOTE | 2024-07-31 16:53 | PC.RT ---
ventilator exchange complete, unable to perform trach change due to trach size being unavailable.
[2024-07-31] MEDS: MAGNESIUM HYDROXIDE 30 ML ORAL SUSP ML PO (23:23)
[2024-07-31] MEDS: ACET PO (23:35)
[2024-07-31] MEDS: HYDRO PO (23:35)
[2024-08-01] VITALS (17 sets, daily range): BP systolic 110–152; BP diastolic 57–78; PULSE 25–80; RESP 16–26; TEMP 36.4–36.7; O2SAT 97–100
[2024-08-01] MEDS: IPRATROPIUM/ALBUTEROL 3 ML AMPUL.NEB INH ×6 (02:19→22:00)
[2024-08-01] MEDS: ACETAMINOPHEN 325 MG TABLET 650 MG PO ×3 (03:46→23:00)
[2024-08-01] MEDS: guaiFENesin Liq 100 MG/5 ML LIQUID PO ×3 (03:58→19:30)
[2024-08-01] MEDS: MIDODRINE 10 MG TABLET PO ×2 (05:21→12:00)
[2024-08-01] MEDS: BUDESONIDE 0.5 MG/2 ML AMPUL.NEB INH ×2 (06:10→18:22)
[2024-08-01 06:32] LABS: Basophils % (Auto) 0 % (0-2.5); Eosinophils # (Auto) 0.3 Thou/mm3 (0.0-0.5); Eosinophils % (Auto) 3 % (0-10); Immature Granulocytes % (Auto) 0 % (0-0); Immature Granulocytes Auto 0.02 Thou/mm3 (0.00-0.00); Lymphocytes # (Auto) 1.4 Thou/mm3 (1.0-4.8); Lymphocytes % (Auto) 16 % (10-50); Mean Corpuscular HGB Conc 28.6 g/dl (31.0-37.0); Mean Corpuscular Hemoglobin 29.8 pg (25.0-35.0); Mean Corpuscular Volume 104 fL (80-100); Monocytes # (Auto) 0.8 Thou/mm3 (0.0-0.8); Monocytes % (Auto) 10 % (0-12); Neutrophils # (Auto) 5.8 Thou/mm3 (1.8-7.7); Neutrophils % (Auto) 71 % (37-80); Nucleated Red Blood Cell % 0 /100 WBC (0); Platelet Count 267 Thou/mm3 (140-440); RDW Standard Deviation 63.5 fL (36.4-46.3); Red Blood Count 1.88 Miln/mm3 (4.00-5.20); White Blood Count 8.3 Thou/mm3 (3.6-11.0)
[2024-08-01 06:38] LABS: Hematocrit 19.6 % (36.0-46.0); Hemoglobin 5.6 g/dL (12.0-16.0)
--- NOTE | 2024-08-01 06:52 | PC.NURSE ---
Received critical lab of 5.6 Hbg and 19.6 Hct- notified Dr Salazar with new order to transfuse 2 units PRBC and repeat CBC 4 hours after completion
[2024-08-01 07:08] LABS: Alanine Aminotransferase < 7 U/L (10-49); Albumin, Serum 3.2 gm/dL (3.4-4.8); Alkaline Phosphatase 98 U/L (46-116); Anion Gap 4 (7-16); Aspartate Amino Transferase 13 U/L (0-34); BUN/Creatinine Ratio 34 Ratio (12-20); Bilirubin,Total 0.2 mg/dL (0.3-1.2); Blood Urea Nitrogen 17 mg/dL (9-23); Calcium 9.2 mg/dL (8.3-10.6); Calcium (Corrected) 9.8 mg/dL (8.5-10.1); Carbon Dioxide > 40.0 mMol/L (20.0-31.0); Chloride 95 mMol/L (98-107); Creatinine (Component) 0.5 mg/dL (0.6-1.3); Estimated Creatinine Clearance 60.9 mL/min (>60); Globulin 3.2 gm/dL (2.3-3.5); Glucose 82 mg/dL (74-106); Osmolality,Calculated 278 (275-295); Potassium 4.2 mMol/L (3.4-5.1); Sodium 139 mMol/L (136-145); Total Protein 6.4 gm/dL (5.7-8.2); eGFR > 60 See Note
[2024-08-01] MEDS: ALPRAZolam 0.5 MG TABLET PO ×2 (08:15→18:30)
[2024-08-01] MEDS: AMIODARONE 200 MG TABLET PO (09:30)
[2024-08-01] MEDS: ASCORBIC ACID 500 MG TABLET PO ×2 (09:31→20:28)
[2024-08-01] MEDS: DEX/HYPRO/GLY ARTIFICAL TEARS 225 DROP/15 ML BTL BOTH EYES ×2 (09:31→20:28)
[2024-08-01] MEDS: FAMOTIDINE 20 MG TABLET PO ×2 (09:31→20:28)
[2024-08-01] MEDS: VITAMIN B COMPLEX PO (09:33)
[2024-08-01] MEDS: SENNOSIDES 8.6 MG TABLET PO ×2 (09:33→20:28)
[2024-08-01] MEDS: MULTIVITAMIN 1 TAB TABLET PO (09:33)
[2024-08-01 10:21] LABS: Path Review Blood Smear Sent to Pathologist
--- NOTE | 2024-08-01 19:28 | PC.NURSE ---
Resident received 2 units of blood today, Hgb was 5.6. tolerated procedure, no side affects.
[2024-08-01] MEDS: HYDRO PO (19:45)
[2024-08-01] MEDS: ACET PO (19:45)
[2024-08-01 21:53] LABS: Basophils % (Auto) 0 % (0-2.5); Eosinophils # (Auto) 0.2 Thou/mm3 (0.0-0.5); Eosinophils % (Auto) 2 % (0-10); Hematocrit 30.1 % (36.0-46.0); Immature Granulocytes % (Auto) 1 % (0-0); Immature Granulocytes Auto 0.07 Thou/mm3 (0.00-0.00); Lymphocytes # (Auto) 1.2 Thou/mm3 (1.0-4.8); Lymphocytes % (Auto) 8 % (10-50); Mean Corpuscular HGB Conc 29.9 g/dl (31.0-37.0); Mean Corpuscular Volume 97 fL (80-100); Monocytes # (Auto) 1.2 Thou/mm3 (0.0-0.8); Monocytes % (Auto) 8 % (0-12); Neutrophils # (Auto) 11.8 Thou/mm3 (1.8-7.7); Neutrophils % (Auto) 82 % (37-80); Nucleated Red Blood Cell % 0 /100 WBC (0); Platelet Count 283 Thou/mm3 (140-440); RDW Standard Deviation 76.4 fL (36.4-46.3); White Blood Count 14.5 Thou/mm3 (3.6-11.0)
[2024-08-02] VITALS (14 sets, daily range): BP systolic 106–118; BP diastolic 57–71; PULSE 64–78; RESP 16–22; TEMP 36.4–37; O2SAT 97–100
[2024-08-02] MEDS: MIDODRINE 10 MG TABLET PO ×5 (00:15→23:29)
[2024-08-02] MEDS: IPRATROPIUM/ALBUTEROL 3 ML AMPUL.NEB INH ×6 (02:15→22:00)
[2024-08-02] MEDS: guaiFENesin Liq 100 MG/5 ML LIQUID PO ×3 (03:30→22:23)
[2024-08-02] MEDS: ALPRAZolam 0.5 MG TABLET PO ×3 (03:30→22:22)
[2024-08-02] MEDS: BUDESONIDE 0.5 MG/2 ML AMPUL.NEB INH ×2 (06:30→18:35)
[2024-08-02] MEDS: ACETAMINOPHEN 325 MG TABLET 650 MG PO ×3 (07:39→23:11)
[2024-08-02] MEDS: DEX/HYPRO/GLY ARTIFICAL TEARS 225 DROP/15 ML BTL BOTH EYES ×2 (08:46→20:03)
[2024-08-02] MEDS: MULTIVITAMIN 1 TAB TABLET PO (08:46)
[2024-08-02] MEDS: VITAMIN B COMPLEX PO (08:46)
[2024-08-02] MEDS: ASCORBIC ACID 500 MG TABLET PO ×2 (08:46→20:03)
[2024-08-02] MEDS: SENNOSIDES 8.6 MG TABLET PO ×2 (08:46→20:04)
[2024-08-02] MEDS: FAMOTIDINE 20 MG TABLET PO ×2 (08:46→20:04)
[2024-08-02] MEDS: AMIODARONE 200 MG TABLET PO (08:46)
--- NOTE | 2024-08-02 11:56 | PC.NURSE ---
Addendum entered by Janeth Maurice RN 08/02/24 12:07: Order to repeat CBC x14 days. 08/15/24 Original Note: Reviewed lab results over the phone with . after 2 unit blood transfusion yesterday. Today HGB 9.0. Normal trend for this patient.
--- NOTE | 2024-08-02 15:27 | PC.NURSE ---
Right hand IV discontinued, catheter tip was intact no indications of infiltration or signs of infection noted. Tolerated well pressure dressing applied to right hand. Current plan of care ongoing. Patient watching TV at this time, call light in place.
--- NOTE | 2024-08-02 15:33 | PC.NURSE ---
Nurse Krystle and BRENT Madrigal reported to specifications writer regarding resident's wishes. They stated Resident wrote on notepad that she wishes to be taken off life support she wishes for her son and brother to be present when this happens. She stated she is tired Shot Peen Operator went to visit resident at her bedside, noted she had wrote on her notepad. conversation was held with Res. she made same statement. Re-assured res. at this time offered all possible support. resident denied No suicidal ideation at this time. MD. will be notified, will leave message for SSD, and will notify family. specifications writer stayed with resident until she felt better. stated we will re-visit request again tomorrow to make sure she feels the same way. Resident agreed. Resident remains stable at this time.
[2024-08-03] VITALS (13 sets, daily range): BP systolic 116–130; BP diastolic 57–72; PULSE 58–80; RESP 16–22; TEMP 36.3–37; O2SAT 96–100
[2024-08-03] MEDS: IPRATROPIUM/ALBUTEROL 3 ML AMPUL.NEB INH ×6 (02:00→22:09)
[2024-08-03] MEDS: ACET PO ×2 (02:47→21:15)
[2024-08-03] MEDS: HYDRO PO ×2 (02:47→21:15)
[2024-08-03] MEDS: MIDODRINE 10 MG TABLET PO ×3 (05:30→18:15)
[2024-08-03] MEDS: BUDESONIDE 0.5 MG/2 ML AMPUL.NEB INH ×2 (06:33→18:26)
[2024-08-03] MEDS: ALPRAZolam 0.5 MG TABLET PO ×2 (07:50→16:20)
[2024-08-03] MEDS: ACETAMINOPHEN 325 MG TABLET 650 MG PO (07:50)
[2024-08-03] MEDS: guaiFENesin Liq 100 MG/5 ML LIQUID PO (07:50)
[2024-08-03] MEDS: AMIODARONE 200 MG TABLET PO (08:04)
[2024-08-03] MEDS: FAMOTIDINE 20 MG TABLET PO ×2 (08:04→21:11)
[2024-08-03] MEDS: DEX/HYPRO/GLY ARTIFICAL TEARS 225 DROP/15 ML BTL BOTH EYES ×2 (08:04→21:10)
[2024-08-03] MEDS: ASCORBIC ACID 500 MG TABLET PO ×2 (08:05→21:10)
[2024-08-03] MEDS: SENNOSIDES 8.6 MG TABLET PO ×2 (08:05→21:11)
[2024-08-03] MEDS: VITAMIN B COMPLEX PO (08:05)
[2024-08-03] MEDS: MULTIVITAMIN 1 TAB TABLET PO (08:05)
--- NOTE | 2024-08-03 11:27 | PC.SS ---
This SSD spoke with resident at bedside regarding her making request to be taken off ventilator and having her son and brother with her when it happens. This SSD was informed by charge nurse resident wrote this request in her notebook, when charge nurse went in room she said she saw resident did write this in her notebook. This SSD spoke with resident about it at which time she said she made that request because she was having a bad day. She stated I love my son too much to she stated she did not want to come off vent but would be willing to speak with MD about the difference in being comfort care rather than full code. This SSD will inform MD and IDT of the conversation with resident. Resident is in good spirits she is smiling and engaging not showing any signs of sadness or discomfort. This SSD will continue to follow up with resident and offer support as she may need it.
--- NOTE | 2024-08-03 15:12 | PC.DIETICIAN ---
Dietitian note: resident agreed to add Ensure Plus twice daily at lunch/dinner. Will discontinue routine snacks as she is refusing them. Thank you
--- NOTE | 2024-08-03 15:32 | PC.SS ---
This SSD and MD went in to speak with resident at bedside, resident did not mention wanting to change code status did ask resident about having a breathing treatment. MD spoke with resident about her difficulty breathing and her being short of breath. Resident agreed to allow for resident to have early breathing treatment,MD to let charge nurse know of early breathing treatment. This SSD followed up with charge nurse who stated RT will give breathing treatment. Resident was in good spirits while speaking with MD, no signs of sadness or tearful episodes, she was seen smiling.
[2024-08-04] VITALS (13 sets, daily range): BP systolic 95–147; BP diastolic 57–72; PULSE 66–89; RESP 16–26; TEMP 36.7–36.9; O2SAT 96–99
[2024-08-04] MEDS: ALPRAZolam 0.5 MG TABLET PO ×3 (00:20→15:40)
[2024-08-04] MEDS: guaiFENesin Liq 100 MG/5 ML LIQUID PO ×3 (01:01→22:12)
[2024-08-04] MEDS: IPRATROPIUM/ALBUTEROL 3 ML AMPUL.NEB INH ×6 (03:01→22:21)
[2024-08-04] MEDS: ACETAMINOPHEN 325 MG TABLET 650 MG PO ×3 (05:05→23:12)
[2024-08-04] MEDS: MIDODRINE 10 MG TABLET PO ×2 (05:06→11:54)
--- NOTE | 2024-08-04 05:31 | PC.NURSE ---
Trach tx DC, RT to continue trach care, RT made aware.
[2024-08-04] MEDS: BUDESONIDE 0.5 MG/2 ML AMPUL.NEB INH ×2 (06:12→18:09)
[2024-08-04] MEDS: AMIODARONE 200 MG TABLET PO (08:05)
[2024-08-04] MEDS: ASCORBIC ACID 500 MG TABLET PO ×2 (08:05→21:44)
[2024-08-04] MEDS: SENNOSIDES 8.6 MG TABLET PO ×2 (08:06→21:44)
[2024-08-04] MEDS: FAMOTIDINE 20 MG TABLET PO ×2 (08:06→21:44)
[2024-08-04] MEDS: DEX/HYPRO/GLY ARTIFICAL TEARS 225 DROP/15 ML BTL BOTH EYES ×2 (08:06→21:44)
[2024-08-04] MEDS: VITAMIN B COMPLEX PO (08:06)
[2024-08-04] MEDS: MULTIVITAMIN 1 TAB TABLET PO (08:06)
--- NOTE | 2024-08-04 11:40 | PD.SAPROG ---
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 (2) Chronic respiratory failure with hypoxia and hypercapnia: Status: Chronic (3) Ventilator dependent: Status: Chronic (4) Congestive heart failure: Status: Chronic (5) Chronic obstructive pulmonary disease, unspecified: Status: Chronic (6) Atrial fibrillation: Status: Chronic (7) Tracheostomy in place: Status: Chronic (8) Chronic anemia: Status: Chronic SUBJECTIVE Fever:: none GI:: none Shortness of Breath:: unchanged GI:: nausea Pain:: none OBJECTIVE Most recent vital signs: Last Vital Signs Temp 98.2 F 08/04/24 11:32 Pulse 81 08/04/24 11:32 Resp 16 08/04/24 11:32 BP 100/61 08/04/24 11:32 Pulse Ox 99 08/04/24 10:16 O2 Del Method Mechanical Ventilation 08/04/24 06:00 FiO2 45 08/04/24 06:12 Neurological:: alert Speech:: nods head, mouths words and appropriate Answers questions:: yes Respiratory:: shallow breathing and rhonchi Cardiovascular: irregular Abdomen: soft Tracheostomy:: to ventilator Feeding per:: po ASSESSMENT & PLAN Assessment: stable. Tolerating ventilatory support. Not weanable because of generalized weakness. Tolerating feeding. Prognosis is very guarded. Patient aware. Family kept aware as well. Discussed with pt this week about setting ET tube in a way so the pt can speak while on Ventilator. pt was satisfied with the settings without compromising ventilation.She requested anti acid for stomach discomfort and was given prn liquid PO. 06/05/24, She was having respiratory stress, settled with anxiety meds, but got a cbc next morning and TLC was elevated sig. without any sig. immature cells and so started empirical Augmenten with plan to repeat CBC in two days to monitor trends which was done and pt stable after antbiotics completed. Pt seems happy. Cell counts improved,afebrile, now having some loose stools and given imodium with improvement, Fluid supplements to prevent dehydration. Tracheostomy revision done surgically. Psychotropics: Xanax 0.5 mgs bid has really done well to settle her anxiety. no side effects seen. She does not do well on lower titration of anxiety meds. No new issues. Plan: Current treatment as well as ventilator settings reviewed and continued.
[2024-08-04] MEDS: HYDRO PO (20:00)
[2024-08-04] MEDS: ACET PO (20:00)
[2024-08-05] VITALS (11 sets, daily range): BP systolic 102–173; BP diastolic 65–67; PULSE 68–91; RESP 16–24; TEMP 36.2–36.6; O2SAT 96–99
[2024-08-05] MEDS: IPRATROPIUM/ALBUTEROL 3 ML AMPUL.NEB INH ×6 (02:26→22:00)
[2024-08-05] MEDS: ALPRAZolam 0.5 MG TABLET PO ×3 (03:37→20:04)
[2024-08-05] MEDS: MIDODRINE 10 MG TABLET PO ×2 (05:39→16:15)
[2024-08-05] MEDS: ACETAMINOPHEN 325 MG TABLET 650 MG PO ×3 (06:05→21:23)
[2024-08-05] MEDS: BUDESONIDE 0.5 MG/2 ML AMPUL.NEB INH ×2 (06:12→18:00)
[2024-08-05] MEDS: AMIODARONE 200 MG TABLET PO (08:59)
[2024-08-05] MEDS: ASCORBIC ACID 500 MG TABLET PO ×2 (08:59→20:58)
[2024-08-05] MEDS: DEX/HYPRO/GLY ARTIFICAL TEARS 225 DROP/15 ML BTL BOTH EYES ×2 (09:00→20:58)
[2024-08-05] MEDS: FAMOTIDINE 20 MG TABLET PO ×2 (09:01→20:58)
[2024-08-05] MEDS: VITAMIN B COMPLEX PO (09:01)
[2024-08-05] MEDS: SENNOSIDES 8.6 MG TABLET PO ×2 (09:01→20:58)
[2024-08-05] MEDS: MULTIVITAMIN 1 TAB TABLET PO (09:01)
[2024-08-05] MEDS: ACET PO (15:45)
[2024-08-05] MEDS: HYDRO PO (15:45)
[2024-08-06] VITALS (14 sets, daily range): BP systolic 98–135; BP diastolic 59–74; PULSE 66–96; RESP 15–18; TEMP 36.1–36.4; O2SAT 96–99
[2024-08-06] MEDS: MIDODRINE 10 MG TABLET PO ×4 (00:18→17:55)
[2024-08-06] MEDS: HYDRO PO ×2 (00:39→23:15)
[2024-08-06] MEDS: guaiFENesin Liq 100 MG/5 ML LIQUID PO ×3 (00:39→20:20)
[2024-08-06] MEDS: ACET PO ×2 (00:39→23:15)
[2024-08-06] MEDS: IPRATROPIUM/ALBUTEROL 3 ML AMPUL.NEB INH ×6 (02:00→23:00)
[2024-08-06] MEDS: ACETAMINOPHEN 325 MG TABLET 650 MG PO ×2 (07:15→20:19)
[2024-08-06] MEDS: BUDESONIDE 0.5 MG/2 ML AMPUL.NEB INH ×2 (07:33→19:10)
[2024-08-06] MEDS: AMIODARONE 200 MG TABLET PO (09:05)
[2024-08-06] MEDS: DEX/HYPRO/GLY ARTIFICAL TEARS 225 DROP/15 ML BTL BOTH EYES ×2 (09:05→20:19)
[2024-08-06] MEDS: ASCORBIC ACID 500 MG TABLET PO ×2 (09:05→20:19)
[2024-08-06] MEDS: MULTIVITAMIN 1 TAB TABLET PO (09:06)
[2024-08-06] MEDS: VITAMIN B COMPLEX PO (09:06)
[2024-08-06] MEDS: FAMOTIDINE 20 MG TABLET PO ×2 (09:06→20:20)
[2024-08-06] MEDS: SENNOSIDES 8.6 MG TABLET PO ×2 (09:06→20:20)
[2024-08-06] MEDS: ALPRAZolam 0.5 MG TABLET PO (15:30)
--- NOTE | 2024-08-06 15:42 | PC.SS ---
Room visit: Resident is laying in bed with family at bedside with no change in care or condition. Resident remains on ventilator with trach in place. Resident uses note book to make needs known, she is able to assist with some care. Resident will remain in current care and will have all subacute care needs met by staff.
[2024-08-07] VITALS (13 sets, daily range): BP systolic 90–126; BP diastolic 56–77; PULSE 64–87; RESP 5–18; TEMP 36.1–36.9; O2SAT 97–100
[2024-08-07] MEDS: MIDODRINE 10 MG TABLET PO ×3 (00:30→12:00)
[2024-08-07] MEDS: IPRATROPIUM/ALBUTEROL 3 ML AMPUL.NEB INH ×6 (02:00→22:00)
[2024-08-07] MEDS: BUDESONIDE 0.5 MG/2 ML AMPUL.NEB INH ×2 (06:12→18:05)
[2024-08-07] MEDS: guaiFENesin Liq 100 MG/5 ML LIQUID PO ×2 (07:10→20:27)
[2024-08-07] MEDS: ALPRAZolam 0.5 MG TABLET PO ×2 (07:25→19:20)
[2024-08-07] MEDS: AMIODARONE 200 MG TABLET PO (09:50)
[2024-08-07] MEDS: ASCORBIC ACID 500 MG TABLET PO ×2 (09:51→20:25)
[2024-08-07] MEDS: VITAMIN B COMPLEX PO (09:52)
[2024-08-07] MEDS: FAMOTIDINE 20 MG TABLET PO ×2 (09:52→20:25)
[2024-08-07] MEDS: MULTIVITAMIN 1 TAB TABLET PO (09:52)
[2024-08-07] MEDS: SENNOSIDES 8.6 MG TABLET PO ×2 (09:52→20:25)
[2024-08-07] MEDS: ACET PO ×2 (13:50→22:00)
[2024-08-07] MEDS: HYDRO PO ×2 (13:50→22:00)
[2024-08-07] MEDS: DEX/HYPRO/GLY ARTIFICAL TEARS 225 DROP/15 ML BTL BOTH EYES (20:25)
[2024-08-08] VITALS (12 sets, daily range): BP systolic 121–129; BP diastolic 64–75; PULSE 72–92; RESP 16–20; TEMP 36.2–37; O2SAT 98–100
[2024-08-08] MEDS: IPRATROPIUM/ALBUTEROL 3 ML AMPUL.NEB INH ×6 (02:20→21:20)
[2024-08-08] MEDS: ALPRAZolam 0.5 MG TABLET PO ×3 (03:46→19:50)
[2024-08-08] MEDS: HYDRO PO ×2 (05:56→19:50)
[2024-08-08] MEDS: ACET PO ×2 (05:56→19:50)
[2024-08-08] MEDS: BUDESONIDE 0.5 MG/2 ML AMPUL.NEB INH ×2 (06:10→18:05)
[2024-08-08] MEDS: ASCORBIC ACID 500 MG TABLET PO ×2 (08:31→20:11)
[2024-08-08] MEDS: AMIODARONE 200 MG TABLET PO (08:31)
[2024-08-08] MEDS: MULTIVITAMIN 1 TAB TABLET PO (08:32)
[2024-08-08] MEDS: FAMOTIDINE 20 MG TABLET PO ×2 (08:32→20:11)
[2024-08-08] MEDS: SENNOSIDES 8.6 MG TABLET PO ×2 (08:32→20:11)
[2024-08-08] MEDS: DEX/HYPRO/GLY ARTIFICAL TEARS 225 DROP/15 ML BTL BOTH EYES ×2 (08:32→20:11)
[2024-08-08] MEDS: VITAMIN B COMPLEX PO (08:32)
[2024-08-08] MEDS: guaiFENesin Liq 100 MG/5 ML LIQUID PO ×2 (11:16→20:18)
--- NOTE | 2024-08-08 18:10 | PD.SAPROG ---
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 (2) Chronic respiratory failure with hypoxia and hypercapnia: Status: Chronic (3) Ventilator dependent: Status: Chronic (4) Congestive heart failure: Status: Chronic (5) Chronic obstructive pulmonary disease, unspecified: Status: Chronic (6) Atrial fibrillation: Status: Chronic (7) Tracheostomy in place: Status: Chronic (8) Chronic anemia: Status: Chronic SUBJECTIVE Fever:: none GI:: none Shortness of Breath:: unchanged GI:: nausea Pain:: none OBJECTIVE Most recent vital signs: Last Vital Signs Temp 98.3 F 08/08/24 17:59 Pulse 78 08/08/24 17:59 Resp 16 08/08/24 17:59 BP 122/65 08/08/24 17:59 Pulse Ox 98 08/08/24 17:59 O2 Del Method Mechanical Ventilation 08/08/24 17:59 FiO2 45 08/08/24 12:47 Neurological:: alert Speech:: nods head, mouths words and appropriate Answers questions:: yes Respiratory:: shallow breathing and rhonchi Cardiovascular: irregular Abdomen: soft Tracheostomy:: to ventilator Feeding per:: po ASSESSMENT & PLAN Assessment: stable. Tolerating ventilatory support. Not weanable because of generalized weakness. Tolerating feeding. Prognosis is very guarded. Patient aware. Family kept aware as well. Discussed with pt this week about setting ET tube in a way so the pt can speak while on Ventilator. pt was satisfied with the settings without compromising ventilation.She requested anti acid for stomach discomfort and was given prn liquid PO. 06/05/24, She was having respiratory stress, settled with anxiety meds, but got a cbc next morning and TLC was elevated sig. without any sig. immature cells and so started empirical Augmenten with plan to repeat CBC in two days to monitor trends which was done and pt stable after antbiotics completed. Pt seems happy. Cell counts improved,afebrile, now having some loose stools and given imodium with improvement, Fluid supplements to prevent dehydration. Tracheostomy revision done surgically. Psychotropics: Xanax 0.5 mgs bid has really done well to settle her anxiety. no side effects seen. She does not do well on lower titration of anxiety meds. No new issues. Had a bedside conversation on quality of life and end of life care at pt's request. Pt remains comfortable on current status. Plan: Current treatment as well as ventilator settings reviewed and continued.
[2024-08-09] VITALS (13 sets, daily range): BP systolic 93–153; BP diastolic 60–73; PULSE 66–87; RESP 16–24; TEMP 36.7–37.1; O2SAT 95–100
[2024-08-09] MEDS: ACETAMINOPHEN 325 MG TABLET 650 MG PO ×2 (00:32→21:10)
[2024-08-09] MEDS: MIDODRINE 10 MG TABLET PO ×2 (00:32→12:00)
[2024-08-09] MEDS: IPRATROPIUM/ALBUTEROL 3 ML AMPUL.NEB INH ×6 (02:35→22:00)
[2024-08-09] MEDS: ACET PO (04:08)
[2024-08-09] MEDS: HYDRO PO (04:08)
[2024-08-09] MEDS: ALPRAZolam 0.5 MG TABLET PO ×2 (04:45→21:10)
[2024-08-09] MEDS: guaiFENesin Liq 100 MG/5 ML LIQUID PO ×2 (04:45→20:30)
[2024-08-09] MEDS: BUDESONIDE 0.5 MG/2 ML AMPUL.NEB INH ×2 (06:26→18:05)
[2024-08-09] MEDS: FAMOTIDINE 20 MG TABLET PO ×2 (09:41→21:10)
[2024-08-09] MEDS: ASCORBIC ACID 500 MG TABLET PO ×2 (09:41→21:09)
[2024-08-09] MEDS: DEX/HYPRO/GLY ARTIFICAL TEARS 225 DROP/15 ML BTL BOTH EYES ×2 (09:41→21:10)
[2024-08-09] MEDS: MULTIVITAMIN 1 TAB TABLET PO (09:42)
[2024-08-09] MEDS: VITAMIN B COMPLEX PO (09:42)
[2024-08-09] MEDS: SENNOSIDES 8.6 MG TABLET PO ×2 (09:42→21:10)
[2024-08-09] MEDS: AMIODARONE 200 MG TABLET PO (09:50)
--- NOTE | 2024-08-09 18:27 | PC.NURSE ---
Dr. Salazar came to visit resident at bedside. Resident was responsive but seemed very drowsy, barely made conversation with seemed very sleepy. From this morning report Joy NAVAS stated resident was up all night. and received [place] and Xanax as per her request. did not make new orders. Stated he wanted to speak with family tomorrow during IDT meeting .resident O2 saturation was 94 when checked. Vital signs Hr, Respirations and temperature were WNL. B/P 153/73. will continue to monitor.
[2024-08-10] VITALS (12 sets, daily range): BP systolic 112–145; BP diastolic 56–77; PULSE 63–87; RESP 16–22; TEMP 36.1–36.8; O2SAT 95–100
[2024-08-10] MEDS: MIDODRINE 10 MG TABLET PO ×4 (00:48→23:39)
[2024-08-10] MEDS: IPRATROPIUM/ALBUTEROL 3 ML AMPUL.NEB INH ×6 (02:00→22:00)
[2024-08-10] MEDS: HYDRO PO ×2 (02:30→21:07)
[2024-08-10] MEDS: ACET PO ×2 (02:30→21:07)
[2024-08-10] MEDS: BUDESONIDE 0.5 MG/2 ML AMPUL.NEB INH ×2 (06:35→18:00)
[2024-08-10] MEDS: FAMOTIDINE 20 MG TABLET PO ×2 (09:34→21:12)
[2024-08-10] MEDS: AMIODARONE 200 MG TABLET PO (09:34)
[2024-08-10] MEDS: MULTIVITAMIN 1 TAB TABLET PO (09:34)
[2024-08-10] MEDS: VITAMIN B COMPLEX PO (09:35)
[2024-08-10] MEDS: ASCORBIC ACID 500 MG TABLET PO ×2 (09:35→21:11)
[2024-08-10] MEDS: SENNOSIDES 8.6 MG TABLET PO ×2 (09:35→21:12)
[2024-08-10] MEDS: ALPRAZolam 0.5 MG TABLET PO ×2 (14:00→23:39)
[2024-08-10] MEDS: ACETAMINOPHEN 325 MG TABLET 650 MG PO ×2 (14:00→22:58)
[2024-08-10] MEDS: guaiFENesin Liq 100 MG/5 ML LIQUID PO ×2 (15:30→21:07)
--- NOTE | 2024-08-10 16:20 | PC.SS ---
Resident is seen in bed sitting up asleep off and on. Resident face appears puffy, she is seen sweating with a cool rag on her forehead. Resident states she is having a hard time breathing. Resident is noticed sleeping more and when awake complaining of having a hard time breathing. This SSD and called and spoke with RP/Francisco Javier her son was explained of all resident current issues and her complaints. MD went over code status, resident currently is a FULL CODE. RP was thankful to MD for the explanation and the phone call. RP spoke with this SSD and stated he is aware resident is slowly declining and is having a hard time. RP stated my om had an addiction for a long time, not drugs but cigarettes he stated when she asks for her breathing treatment or a boost that is equivalent to her having a cigarettes he stated he would not be changing resident code status, he sated she will remain FULL CODE. This SSD had a previous conversation with resident regarding her code status and resident wrote on her note pad I love my son too much to She stated she did not want to change her code status. , charge nurse, Lic nurse and DON are aware of RP conversation and decision.
--- NOTE | 2024-08-10 18:45 | PC.NURSE ---
We called his Son Dr. Salazar explained to the son resident condition and educate him about code status SS was present resident remain full code at this we, will continue to monitor.
[2024-08-10] MEDS: DEX/HYPRO/GLY ARTIFICAL TEARS 225 DROP/15 ML BTL BOTH EYES (21:11)
[2024-08-11] VITALS (12 sets, daily range): BP systolic 104–175; BP diastolic 54–85; PULSE 64–97; RESP 16–20; TEMP 36.4–36.8; O2SAT 97–100
[2024-08-11] MEDS: IPRATROPIUM/ALBUTEROL 3 ML AMPUL.NEB INH ×4 (02:00→22:15)
[2024-08-11] MEDS: BUDESONIDE 0.5 MG/2 ML AMPUL.NEB INH (06:07)
[2024-08-11] MEDS: ALPRAZolam 0.5 MG TABLET PO (09:29)
[2024-08-11] MEDS: MULTIVITAMIN 1 TAB TABLET PO (09:30)
[2024-08-11] MEDS: SENNOSIDES 8.6 MG TABLET PO ×2 (09:30→20:53)
[2024-08-11] MEDS: AMIODARONE 200 MG TABLET PO (09:30)
[2024-08-11] MEDS: DEX/HYPRO/GLY ARTIFICAL TEARS 225 DROP/15 ML BTL BOTH EYES ×2 (09:30→20:53)
[2024-08-11] MEDS: FAMOTIDINE 20 MG TABLET PO ×2 (09:30→20:53)
[2024-08-11] MEDS: ASCORBIC ACID 500 MG TABLET PO ×2 (09:30→20:52)
[2024-08-11] MEDS: VITAMIN B COMPLEX PO (09:32)
[2024-08-11] MEDS: MAGNESIUM HYDROXIDE 30 ML ORAL SUSP ML PO (09:32)
[2024-08-11] MEDS: guaiFENesin Liq 100 MG/5 ML LIQUID PO ×2 (12:30→23:55)
--- NOTE | 2024-08-11 12:55 | PC.NURSE ---
Resident noted to be less responsive and hyperventilating . Face noted to be swollen . O2 saturation 91% with FIO2 of 45%. RT bumped FIO2 at 60% satting at 96%. V/S 175/85, 111, 28, 97.6. Seen by Dr Salazar and ordered to send resident to ER for further evaluation . Called ER at 12:43 and gave report. Placed a call to resident's son Francisco Javier at 12:47 and informed him of the order to transfer.
--- NOTE | 2024-08-11 13:09 | PC.NURSE ---
Resident was sent out to ER at 13:08 via hospital bed with RT, RNA and SIDE PIECE COVERER.
--- NOTE | 2024-08-11 13:30 | PC.RT ---
Pt sent to ER. Hypotensive and FIO2-60%
--- NOTE | 2024-08-11 13:52 | PC.SS ---
Resident was sent out to ED, this SSD mailed out transfer noification to AMINTA/Rafael Blakely. This SSD to call and notify him.
--- NOTE | 2024-08-11 18:04 | PC.NURSE ---
Report received from ER and resident will be sent back to subacute. As per ER nurse , resident's trach was changed and resident felt better after. Resident remains on mechanical ventilator and on FIO2 50% satting at 100%. Resident was given Rocephin 1 gm IV , Lorazepam and a bolus 500 ml of NS. Resident noted to have UTI per report and will be on antibiotic . Awaiting for resident to be back from ER
--- NOTE | 2024-08-11 19:59 | PC.RT ---
pt was brought back from ED by RT Keshawn, RT Aisha and Student. Per RT Keshawn, no complications from ED to room. Ventilator was plugged in and working. Pt received breathing tx in ED at 1836. Pt seems a little confused. BENNY Osman and RN Maria De Jesus, notified
--- NOTE | 2024-08-11 20:17 | PC.NURSE ---
Resident returned from ER via bed accompanied by RN, EQUIPMENT MAINTENANCE TECH and RT. She received Ativan and Rocephin IV in ER for UTI, resident opens eyes when name is called then goes back to sleep, no signs of distress noted at this time. Vitals BP 104/71, HR 88, RR 20 T 98.2, O2 97%, denies pain. Vent settings: AC 16, TV 525 FiO2 50%. Notified Dr Salazar regarding ER doctor orderiing Cephalexin 500mg PO/PGT four times a day for UTI-per MD thurman to start for total of 7 days.
--- NOTE | 2024-08-11 21:18 | PC.NURSE ---
Called resident's son Francisco Javier to notify him of resident's return to unit, no answer, left message to call back
[2024-08-11] MEDS: ACETAMINOPHEN 325 MG TABLET 650 MG PO (22:08)
[2024-08-11] MEDS: cephALEXin 500 MG CAPSULE GT (23:41)
[2024-08-12] VITALS (13 sets, daily range): BP systolic 104–142; BP diastolic 62–68; PULSE 72–98; RESP 16–23; TEMP 36.6–37.1; O2SAT 98–100
[2024-08-12] MEDS: IPRATROPIUM/ALBUTEROL 3 ML AMPUL.NEB INH ×6 (02:00→22:00)
[2024-08-12] MEDS: ALPRAZolam 0.5 MG TABLET PO ×3 (02:09→21:42)
[2024-08-12] MEDS: cephALEXin 500 MG CAPSULE GT ×4 (05:16→21:11)
[2024-08-12] MEDS: MIDODRINE 10 MG TABLET PO ×2 (05:16→11:25)
--- NOTE | 2024-08-12 05:48 | PC.NURSE ---
Resident's son Francisco Javier called back this morning, notified him of resident coming back to her room, UTI, antibiotics and her status throughout the night, all questions and concerns answered.
[2024-08-12] MEDS: BUDESONIDE 0.5 MG/2 ML AMPUL.NEB INH ×2 (06:10→19:35)
[2024-08-12] MEDS: MULTIVITAMIN 1 TAB TABLET PO (08:28)
[2024-08-12] MEDS: ASCORBIC ACID 500 MG TABLET PO ×2 (08:28→20:15)
[2024-08-12] MEDS: FAMOTIDINE 20 MG TABLET PO ×2 (08:28→20:15)
[2024-08-12] MEDS: AMIODARONE 200 MG TABLET PO (08:28)
[2024-08-12] MEDS: DEX/HYPRO/GLY ARTIFICAL TEARS 225 DROP/15 ML BTL BOTH EYES ×2 (08:28→20:15)
[2024-08-12] MEDS: VITAMIN B COMPLEX PO (08:29)
[2024-08-12] MEDS: SENNOSIDES 8.6 MG TABLET PO ×2 (08:29→20:16)
--- NOTE | 2024-08-12 11:00 | PC.SS ---
Room visit: Resident is laying in bed with head of the bed elevated with call light properly placed. Resident remains asleep during morning room visit. She remains on ventilator with trach in place and GT in place for medication and supplement nutrition. Resident will remain in current care as she is not ready to DC to lower level of care, due to heavy and complicated care regimen she will continue to have all subacute care needs met by staff. SSD will continue to make daily contact with resident and monitor for changes in mood and behavior.
[2024-08-12] MEDS: ACETAMINOPHEN 325 MG TABLET 650 MG PO (16:10)
[2024-08-12] MEDS: guaiFENesin Liq 100 MG/5 ML LIQUID PO ×2 (17:21→23:36)
[2024-08-12] MEDS: ACET PO (20:14)
[2024-08-12] MEDS: HYDRO PO (20:14)
--- NOTE | 2024-08-12 23:01 | PD.SAPROG ---
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 (2) Chronic respiratory failure with hypoxia and hypercapnia: Status: Chronic (3) Ventilator dependent: Status: Chronic (4) Congestive heart failure: Status: Chronic (5) Chronic obstructive pulmonary disease, unspecified: Status: Chronic (6) Atrial fibrillation: Status: Chronic (7) Tracheostomy in place: Status: Chronic (8) Chronic anemia: Status: Chronic SUBJECTIVE Fever:: none GI:: none Shortness of Breath:: unchanged GI:: nausea Pain:: none OBJECTIVE Most recent vital signs: Last Vital Signs Temp 98.4 F 08/12/24 18:00 Pulse 72 08/12/24 18:00 Resp 16 08/12/24 18:00 BP 125/65 08/12/24 18:00 Pulse Ox 100 08/12/24 14:20 O2 Del Method Mechanical Ventilation 08/12/24 05:36 FiO2 50 08/12/24 14:20 Neurological:: alert Speech:: nods head, mouths words and appropriate Answers questions:: yes Respiratory:: shallow breathing and rhonchi Cardiovascular: irregular Abdomen: soft Tracheostomy:: to ventilator Feeding per:: po ASSESSMENT & PLAN Assessment: stable. Tolerating ventilatory support. Not weanable because of generalized weakness. Tolerating feeding. Prognosis is very guarded. Patient aware. Tracheostomy revision done surgically. Psychotropics: Xanax 0.5 mgs bid has really done well to settle her anxiety. no side effects seen. She does not do well on lower titration of anxiety meds. No new issues. Had a bedside conversation on quality of life and end of life care at pt's request. Pt remains comfortable on current meds. 08-11-24 had a detailed conversation with pt's son about progressively worsening condition as expected in end stage COPD ventilator dependent and now more weak/inability to thrive. Code status was discussed and the extremely poor prognosis. Plan: Current treatment as well as ventilator settings reviewed and continued.
[2024-08-13] VITALS (13 sets, daily range): BP systolic 93–145; BP diastolic 58–72; PULSE 74–91; RESP 16–24; TEMP 36.1–36.8; O2SAT 96–100
[2024-08-13] MEDS: IPRATROPIUM/ALBUTEROL 3 ML AMPUL.NEB INH ×6 (02:10→22:00)
--- NOTE | 2024-08-13 03:50 | PC.NURSE ---
RESIDENT RECEIVING CEPHALEXIN VIA PO QID FOR UTI. NO FEVER NOTED. NO ADVERSE REACTION NOTED.
[2024-08-13] MEDS: MIDODRINE 10 MG TABLET PO ×3 (05:12→23:03)
[2024-08-13] MEDS: cephALEXin 500 MG CAPSULE GT ×4 (05:12→21:16)
[2024-08-13] MEDS: guaiFENesin Liq 100 MG/5 ML LIQUID PO ×2 (05:23→19:20)
[2024-08-13] MEDS: BUDESONIDE 0.5 MG/2 ML AMPUL.NEB INH ×2 (06:00→19:00)
[2024-08-13] MEDS: ACETAMINOPHEN 325 MG TABLET 650 MG PO ×2 (07:29→19:20)
[2024-08-13] MEDS: ALPRAZolam 0.5 MG TABLET PO ×2 (07:52→20:09)
[2024-08-13] MEDS: AMIODARONE 200 MG TABLET PO (09:12)
[2024-08-13] MEDS: VITAMIN B COMPLEX PO (09:13)
[2024-08-13] MEDS: ASCORBIC ACID 500 MG TABLET PO ×2 (09:13→20:10)
[2024-08-13] MEDS: DEX/HYPRO/GLY ARTIFICAL TEARS 225 DROP/15 ML BTL BOTH EYES ×2 (09:13→20:10)
[2024-08-13] MEDS: MULTIVITAMIN 1 TAB TABLET PO (09:13)
[2024-08-13] MEDS: FAMOTIDINE 20 MG TABLET PO ×2 (09:13→20:10)
[2024-08-13] MEDS: SENNOSIDES 8.6 MG TABLET PO (09:13)
[2024-08-13] MEDS: ACET PO (23:02)
[2024-08-13] MEDS: HYDRO PO (23:02)
[2024-08-14] VITALS (12 sets, daily range): BP systolic 94–131; BP diastolic 56–70; PULSE 56–94; RESP 16–20; TEMP 36.1–36.3; O2SAT 98–100
[2024-08-14] MEDS: IPRATROPIUM/ALBUTEROL 3 ML AMPUL.NEB INH ×6 (02:05→22:10)
[2024-08-14] MEDS: ACETAMINOPHEN 325 MG TABLET 650 MG PO ×3 (03:27→21:08)
[2024-08-14] MEDS: guaiFENesin Liq 100 MG/5 ML LIQUID PO ×3 (03:27→23:21)
[2024-08-14] MEDS: cephALEXin 500 MG CAPSULE GT ×4 (05:07→21:05)
[2024-08-14] MEDS: MIDODRINE 10 MG TABLET PO ×2 (05:07→17:41)
[2024-08-14] MEDS: BUDESONIDE 0.5 MG/2 ML AMPUL.NEB INH ×2 (06:17→18:08)
--- NOTE | 2024-08-14 09:15 | PC.NURSE ---
Resident was sent out to ER on 08/11/24 and came back at the same day with and order for Keflex PGT for UTI. Order of urine c& s from ER was cancelled per microbiology. Resident remains stable. Alert , awake and responsive. Afebrile. Called Dr Salazar and made aware , with order received to do urine c & s .
[2024-08-14] MEDS: AMIODARONE 200 MG TABLET PO (09:36)
[2024-08-14] MEDS: MULTIVITAMIN 1 TAB TABLET PO (09:37)
[2024-08-14] MEDS: FAMOTIDINE 20 MG TABLET PO ×2 (09:37→21:06)
[2024-08-14] MEDS: DEX/HYPRO/GLY ARTIFICAL TEARS 225 DROP/15 ML BTL BOTH EYES ×2 (09:37→21:06)
[2024-08-14] MEDS: SENNOSIDES 8.6 MG TABLET PO ×2 (09:37→21:06)
[2024-08-14] MEDS: VITAMIN B COMPLEX PO (09:37)
[2024-08-14] MEDS: ASCORBIC ACID 500 MG TABLET PO ×2 (09:37→21:05)
[2024-08-14] MEDS: ALPRAZolam 0.5 MG TABLET PO (11:37)
[2024-08-14] MEDS: ACET PO (14:58)
[2024-08-14] MEDS: HYDRO PO (14:58)
--- NOTE | 2024-08-14 17:42 | PC.NURSE ---
Resident continues on Keflex antibiotics for UTI no adverse reactions to note. Fluids taken adequate. Patient in bed resting quietly no distress noted. Current plan of care ongoing.
[2024-08-15] VITALS (12 sets, daily range): BP systolic 95–140; BP diastolic 55–73; PULSE 65–86; RESP 16–20; TEMP 36.2–36.9; O2SAT 97–100
[2024-08-15] MEDS: IPRATROPIUM/ALBUTEROL 3 ML AMPUL.NEB INH ×6 (03:00→22:05)
[2024-08-15] MEDS: ACETAMINOPHEN 325 MG TABLET 650 MG PO ×3 (05:01→20:07)
[2024-08-15] MEDS: cephALEXin 500 MG CAPSULE GT ×4 (05:01→20:07)
[2024-08-15] MEDS: MIDODRINE 10 MG TABLET PO ×2 (05:01→12:00)
--- NOTE | 2024-08-15 05:41 | PC.NURSE ---
Resident continues on antibiotics for UTI. No adverse reactions noted. F/C patent, draining clear yellow urine to gravity. No hematuria noted. All fluids tolerated well PO and via g-tube.
[2024-08-15] MEDS: BUDESONIDE 0.5 MG/2 ML AMPUL.NEB INH (06:17)
[2024-08-15] MEDS: AMIODARONE 200 MG TABLET PO (09:09)
[2024-08-15] MEDS: FAMOTIDINE 20 MG TABLET PO ×2 (09:10→20:07)
[2024-08-15] MEDS: ALPRAZolam 0.5 MG TABLET PO ×2 (09:10→17:25)
[2024-08-15] MEDS: VITAMIN B COMPLEX PO (09:11)
[2024-08-15] MEDS: MULTIVITAMIN 1 TAB TABLET PO (09:11)
[2024-08-15] MEDS: SENNOSIDES 8.6 MG TABLET PO ×2 (09:11→20:07)
[2024-08-15] MEDS: ASCORBIC ACID 500 MG TABLET PO ×2 (09:11→20:07)
--- NOTE | 2024-08-15 17:46 | PC.RT ---
called pharmacy and spoke to adryan Davis not available and will be available on 08/18 and we do not have to reorder, med will be dropped off 08/18.
--- NOTE | 2024-08-15 18:10 | PC.NURSE ---
Resident continues on Keflex PO, antibiotic for UTI, no adverse reactions noted, urine dark yellow, fluids encouraged, continue to monitor
[2024-08-15] MEDS: DEX/HYPRO/GLY ARTIFICAL TEARS 225 DROP/15 ML BTL BOTH EYES (20:07)
[2024-08-15] MEDS: guaiFENesin Liq 100 MG/5 ML LIQUID PO (21:24)
[2024-08-16] VITALS (18 sets, daily range): BP systolic 90–162; BP diastolic 62–88; PULSE 60–90; RESP 16–18; TEMP 36.2–36.7; O2SAT 97–100
[2024-08-16] MEDS: ACET PO (00:05)
[2024-08-16] MEDS: HYDRO PO (00:05)
[2024-08-16] MEDS: ALPRAZolam 0.5 MG TABLET PO ×3 (02:35→23:55)
[2024-08-16] MEDS: guaiFENesin Liq 100 MG/5 ML LIQUID PO ×2 (04:56→20:51)
[2024-08-16] MEDS: MIDODRINE 10 MG TABLET PO ×2 (04:59→11:31)
[2024-08-16] MEDS: cephALEXin 500 MG CAPSULE GT ×4 (04:59→20:50)
[2024-08-16] MEDS: IPRATROPIUM/ALBUTEROL 3 ML AMPUL.NEB INH ×4 (06:17→22:47)
[2024-08-16] MEDS: BUDESONIDE 0.5 MG/2 ML AMPUL.NEB INH ×2 (06:17→19:10)
[2024-08-16 07:23] LABS: Basophils % (Auto) 0 % (0-2.5); Eosinophils # (Auto) 0.3 Thou/mm3 (0.0-0.5); Eosinophils % (Auto) 4 % (0-10); Hematocrit 21.9 % (36.0-46.0); Immature Granulocytes % (Auto) 0 % (0-0); Immature Granulocytes Auto 0.03 Thou/mm3 (0.00-0.00); Lymphocytes # (Auto) 1.2 Thou/mm3 (1.0-4.8); Lymphocytes % (Auto) 14 % (10-50); Mean Corpuscular HGB Conc 28.8 g/dl (31.0-37.0); Mean Corpuscular Hemoglobin 28.8 pg (25.0-35.0); Mean Corpuscular Volume 100 fL (80-100); Monocytes # (Auto) 1.1 Thou/mm3 (0.0-0.8); Monocytes % (Auto) 12 % (0-12); Neutrophils # (Auto) 5.9 Thou/mm3 (1.8-7.7); Neutrophils % (Auto) 69 % (37-80); Nucleated Red Blood Cell % 0 /100 WBC (0); Platelet Count 215 Thou/mm3 (140-440); RDW Standard Deviation 69.6 fL (36.4-46.3); Red Blood Count 2.19 Miln/mm3 (4.00-5.20); White Blood Count 8.6 Thou/mm3 (3.6-11.0)
[2024-08-16 07:40] LABS: Hemoglobin 6.3 g/dL (12.0-16.0)
[2024-08-16] MEDS: ASCORBIC ACID 500 MG TABLET PO ×2 (08:29→20:50)
[2024-08-16] MEDS: FAMOTIDINE 20 MG TABLET PO ×2 (08:29→20:51)
[2024-08-16] MEDS: MULTIVITAMIN 1 TAB TABLET PO (08:29)
[2024-08-16] MEDS: SENNOSIDES 8.6 MG TABLET PO ×2 (08:30→20:51)
[2024-08-16] MEDS: VITAMIN B COMPLEX PO (08:30)
[2024-08-16] MEDS: ACETAMINOPHEN 325 MG TABLET 650 MG PO ×2 (08:30→19:35)
--- NOTE | 2024-08-16 09:41 | PC.NURSE ---
Dr aSlazar was notified regarding resident's CBC result, hemoglobin level noted to be 6.3. With order received to give 2 units of PRBC and do stool occult blood. Resident made aware. Tried to call resident's son Francisco Javier to update but unable to get hold of him. Left message on his voicemail to call us back.
--- NOTE | 2024-08-16 16:09 | PC.NURSE ---
Resident's Francisco Javier called back and made him aware of the order for blood transfusion.
--- NOTE | 2024-08-16 16:29 | PC.NURSE ---
Seen by Dr Salazar, no new orders made
--- NOTE | 2024-08-16 18:36 | PC.NURSE ---
Patient continues on Keflex antibiotic for UTI no adverse reactions or side effects to noted, resident has a FC, it is patent and intact draining cloudy yellow urine to gravity, catheter care provided, labia noted to be swollen. Resident continues on monitoring for Blood transfusion no hemolytic reactions noted. Patient IV is a 20 G to right lateral inner wrist noted to be patent and intact, no signs of infiltration. Patient is awake and alert with call light in place, current plan of care is ongoing.
--- NOTE | 2024-08-16 19:06 | PC.NURSE ---
Resident completed the 1 unit PRBC at 18:04, no adverse reaction noted. Remains on mechanical ventilator. No s/s of respiratory distress noted.
[2024-08-16] MEDS: DEX/HYPRO/GLY ARTIFICAL TEARS 225 DROP/15 ML BTL BOTH EYES (20:51)
--- NOTE | 2024-08-16 21:22 | PD.SAPROG ---
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 (2) Chronic respiratory failure with hypoxia and hypercapnia: Status: Chronic (3) Ventilator dependent: Status: Chronic (4) Congestive heart failure: Status: Chronic (5) Chronic obstructive pulmonary disease, unspecified: Status: Chronic (6) Atrial fibrillation: Status: Chronic (7) Tracheostomy in place: Status: Chronic (8) Chronic anemia: Status: Chronic SUBJECTIVE Fever:: none GI:: none Shortness of Breath:: unchanged GI:: nausea Pain:: none OBJECTIVE Most recent vital signs: Last Vital Signs Temp 98.1 F 08/16/24 20:20 Pulse 82 08/16/24 20:20 Resp 16 08/16/24 20:20 BP 145/76 H 08/16/24 18:04 Pulse Ox 97 08/16/24 20:20 O2 Del Method Mechanical Ventilation 08/16/24 17:35 FiO2 50 08/16/24 11:27 Neurological:: alert Speech:: nods head, mouths words and appropriate Answers questions:: yes Respiratory:: shallow breathing and rhonchi Cardiovascular: irregular Abdomen: soft Tracheostomy:: to ventilator Feeding per:: po ASSESSMENT & PLAN Assessment: stable. Tolerating ventilatory support. Not weanable because of generalized weakness. Tolerating feeding. Prognosis is very guarded. Patient aware. Tracheostomy revision done surgically. Psychotropics: Xanax 0.5 mgs bid has really done well to settle her anxiety. no side effects seen. She does not do well on lower titration of anxiety meds. No new issues. Had a bedside conversation on quality of life and end of life care at pt's request. Pt remains comfortable on current meds. 08-11-24 had a detailed conversation with pt's son about progressively worsening condition as expected in end stage COPD ventilator dependent and now more weak/inability to thrive. Code status was discussed and the extremely poor prognosis. 08-16-24 Pt's Hb was critical and hence ordered two units packed rbcs. Pt was in no distress. Plan: Current treatment as well as ventilator settings reviewed and continued.
[2024-08-17] VITALS (12 sets, daily range): BP systolic 120–155; BP diastolic 60–76; PULSE 64–82; RESP 16–18; TEMP 36.1–36.8; O2SAT 96–100
[2024-08-17] MEDS: ACETAMINOPHEN 325 MG TABLET 650 MG PO ×3 (01:30→18:28)
[2024-08-17] MEDS: IPRATROPIUM/ALBUTEROL 3 ML AMPUL.NEB INH ×6 (02:33→21:58)
[2024-08-17] MEDS: cephALEXin 500 MG CAPSULE GT ×2 (05:25→12:00)
[2024-08-17] MEDS: BUDESONIDE 0.5 MG/2 ML AMPUL.NEB INH ×2 (06:05→18:20)
[2024-08-17 06:11] LABS: Basophils % (Auto) 0 % (0-2.5); Eosinophils # (Auto) 0.4 Thou/mm3 (0.0-0.5); Eosinophils % (Auto) 5 % (0-10); Hematocrit 32.2 % (36.0-46.0); Hemoglobin 9.6 g/dL (12.0-16.0); Immature Granulocytes % (Auto) 0 % (0-0); Immature Granulocytes Auto 0.03 Thou/mm3 (0.00-0.00); Lymphocytes # (Auto) 1.2 Thou/mm3 (1.0-4.8); Lymphocytes % (Auto) 14 % (10-50); Mean Corpuscular HGB Conc 29.8 g/dl (31.0-37.0); Mean Corpuscular Hemoglobin 29.4 pg (25.0-35.0); Mean Corpuscular Volume 99 fL (80-100); Monocytes # (Auto) 0.9 Thou/mm3 (0.0-0.8); Monocytes % (Auto) 11 % (0-12); Neutrophils # (Auto) 5.7 Thou/mm3 (1.8-7.7); Neutrophils % (Auto) 70 % (37-80); Nucleated Red Blood Cell % 0 /100 WBC (0); Platelet Count 203 Thou/mm3 (140-440); RDW Standard Deviation 63.5 fL (36.4-46.3); Red Blood Count 3.27 Miln/mm3 (4.00-5.20); White Blood Count 8.3 Thou/mm3 (3.6-11.0)
[2024-08-17] MEDS: ACET PO ×2 (07:50→21:10)
[2024-08-17] MEDS: HYDRO PO ×2 (07:50→21:10)
[2024-08-17] MEDS: ASCORBIC ACID 500 MG TABLET PO ×2 (08:00→21:06)
[2024-08-17] MEDS: MULTIVITAMIN 1 TAB TABLET PO (08:00)
[2024-08-17] MEDS: AMIODARONE 200 MG TABLET PO (08:00)
[2024-08-17] MEDS: SENNOSIDES 8.6 MG TABLET PO ×2 (08:00→21:09)
[2024-08-17] MEDS: MAGNESIUM HYDROXIDE 30 ML ORAL SUSP ML PO (08:00)
[2024-08-17] MEDS: FAMOTIDINE 20 MG TABLET PO ×2 (08:00→21:08)
[2024-08-17] MEDS: VITAMIN B COMPLEX PO (08:00)
[2024-08-17] MEDS: guaiFENesin Liq 100 MG/5 ML LIQUID PO ×2 (09:45→21:09)
[2024-08-17] MEDS: SILVER NITRATE APPLICATOR 1 EACH STICK..EA. TOP (10:30)
--- NOTE | 2024-08-17 12:54 | PC.IP ---
IP Note: Result of Urine culture, final: Pseudomonas aeruginosa>100,000 Colonies/mL. Will report to MD for follow-up and appropriate antibiotic for resistance.
--- NOTE | 2024-08-17 14:00 | PC.NURSE ---
Resident occult blood testing on stool was negative
--- NOTE | 2024-08-17 15:43 | PC.NURSE ---
. order to repeat CBC in one week to follow-up hgb level, order noted and carried out we will continue to monitor.
--- NOTE | 2024-08-17 18:54 | PC.NURSE ---
Resident continues on antibiotic for UTI, no adverse reactions noted, vital signs stable, continue to monitor
[2024-08-17] MEDS: CIPROFLOXACIN HCL 500 MG TABLET GT (21:07)
[2024-08-17] MEDS: DEX/HYPRO/GLY ARTIFICAL TEARS 225 DROP/15 ML BTL BOTH EYES (21:08)
[2024-08-18] VITALS (12 sets, daily range): BP systolic 115–137; BP diastolic 65–74; PULSE 60–87; RESP 16–24; TEMP 36.4–37.1; O2SAT 98–100
[2024-08-18] MEDS: IPRATROPIUM/ALBUTEROL 3 ML AMPUL.NEB INH ×6 (02:04→22:48)
[2024-08-18] MEDS: ACETAMINOPHEN 325 MG TABLET 650 MG PO ×3 (02:25→20:26)
[2024-08-18] MEDS: MIDODRINE 10 MG TABLET PO ×2 (05:22→17:43)
[2024-08-18] MEDS: BUDESONIDE 0.5 MG/2 ML AMPUL.NEB INH ×2 (06:43→18:06)
[2024-08-18] MEDS: AMIODARONE 200 MG TABLET PO (08:54)
[2024-08-18] MEDS: ASCORBIC ACID 500 MG TABLET PO ×2 (08:55→20:31)
[2024-08-18] MEDS: DEX/HYPRO/GLY ARTIFICAL TEARS 225 DROP/15 ML BTL BOTH EYES ×2 (08:56→20:32)
[2024-08-18] MEDS: CIPROFLOXACIN HCL 500 MG TABLET GT ×2 (08:56→20:31)
[2024-08-18] MEDS: VITAMIN B COMPLEX PO (08:57)
[2024-08-18] MEDS: FAMOTIDINE 20 MG TABLET PO ×2 (08:57→20:32)
[2024-08-18] MEDS: MULTIVITAMIN 1 TAB TABLET PO (08:57)
[2024-08-18] MEDS: SENNOSIDES 8.6 MG TABLET PO ×2 (08:57→20:32)
[2024-08-18] MEDS: guaiFENesin Liq 100 MG/5 ML LIQUID PO (12:41)
[2024-08-18] MEDS: ALPRAZolam 0.5 MG TABLET PO (14:52)
[2024-08-18] MEDS: HYDRO PO (15:08)
[2024-08-18] MEDS: ACET PO (15:08)
[2024-08-19] VITALS (12 sets, daily range): BP systolic 111–135; BP diastolic 56–71; PULSE 61–90; RESP 15–20; TEMP 36.4–36.6; O2SAT 96–100
[2024-08-19] MEDS: MIDODRINE 10 MG TABLET PO (00:27)
[2024-08-19] MEDS: guaiFENesin Liq 100 MG/5 ML LIQUID PO ×3 (01:31→19:20)
--- NOTE | 2024-08-19 01:37 | PC.RT ---
pt complaining of sob spo2 99%, hr 75, RR 24, ronchi coarse bs auscultated, pt asked for a boost, told pt spo2 99%, she does not need a boost, pt became sob, RR in the 30s while I was in room, suction a small amount of thick yellow sputum, trach patent, circuit patent, spo2 reassess, 99%, boost given at this time, pt aware tx will be given at 02:00, pt calm down RR improved to 16, spo2 100%.
[2024-08-19] MEDS: IPRATROPIUM/ALBUTEROL 3 ML AMPUL.NEB INH ×6 (01:56→22:03)
[2024-08-19] MEDS: ALPRAZolam 0.5 MG TABLET PO ×3 (02:30→19:21)
[2024-08-19] MEDS: BUDESONIDE 0.5 MG/2 ML AMPUL.NEB INH ×2 (07:10→18:08)
[2024-08-19] MEDS: CIPROFLOXACIN HCL 500 MG TABLET GT ×2 (08:23→20:20)
[2024-08-19] MEDS: ASCORBIC ACID 500 MG TABLET PO ×2 (08:23→20:20)
[2024-08-19] MEDS: DEX/HYPRO/GLY ARTIFICAL TEARS 225 DROP/15 ML BTL BOTH EYES ×2 (08:23→20:21)
[2024-08-19] MEDS: FAMOTIDINE 20 MG TABLET PO ×2 (08:24→20:21)
[2024-08-19] MEDS: MULTIVITAMIN 1 TAB TABLET PO (08:24)
[2024-08-19] MEDS: VITAMIN B COMPLEX PO (08:25)
[2024-08-19] MEDS: SENNOSIDES 8.6 MG TABLET PO ×2 (08:25→20:21)
[2024-08-19] MEDS: AMIODARONE 200 MG TABLET PO (08:28)
[2024-08-19] MEDS: HYDRO PO ×2 (08:29→22:34)
[2024-08-19] MEDS: ACET PO ×2 (08:29→22:34)
[2024-08-19] MEDS: ACETAMINOPHEN 325 MG TABLET 650 MG PO (14:29)
[2024-08-19] MEDS: BISACODYL 10 MG SUPP.RECT PR (22:45)
--- NOTE | 2024-08-19 23:08 | PC.RT ---
pr nurse vent alarming, went to assess pt, vent alarming partial occlusion pressure and low volume, pt sob labored, assess spo2 96%, Rr28, no leaks noted on circuit, expiratory filter replaced, alarm resolved, pt continue to be sob, inline suction a small amount of yellow thick sputum, reposition bed slightly lower, gave pt a boost, spo2 100%, pt started to calm down RR improved 16.
[2024-08-20] VITALS (11 sets, daily range): BP systolic 99–138; BP diastolic 63–83; PULSE 64–96; RESP 16–20; TEMP 36.2–36.6; O2SAT 97–100
--- NOTE | 2024-08-20 00:12 | PC.NURSE ---
Continues in antibiotics for UTI. No adverse reaction noted. Hunter cath patent draining clear yellow urine to gravity with scant amount of sediment. Medicated with PRN Xanax due to increased anxiety M/B increased SOB, restlessness, excessive worry and continuous use of call light. Med not effective after one hour of administration requiring staff reassurance, increased RT visits and stiff to remain at bedside for some time.
[2024-08-20] MEDS: MIDODRINE 10 MG TABLET PO ×3 (00:17→23:28)
[2024-08-20] MEDS: IPRATROPIUM/ALBUTEROL 3 ML AMPUL.NEB INH ×6 (02:30→22:14)
[2024-08-20] MEDS: ACETAMINOPHEN 325 MG TABLET 650 MG PO ×2 (04:40→19:51)
[2024-08-20] MEDS: BUDESONIDE 0.5 MG/2 ML AMPUL.NEB INH ×2 (07:10→18:00)
[2024-08-20] MEDS: AMIODARONE 200 MG TABLET PO (08:41)
[2024-08-20] MEDS: CIPROFLOXACIN HCL 500 MG TABLET GT ×2 (08:42→20:00)
[2024-08-20] MEDS: FAMOTIDINE 20 MG TABLET PO ×2 (08:42→20:00)
[2024-08-20] MEDS: MULTIVITAMIN 1 TAB TABLET PO (08:42)
[2024-08-20] MEDS: DEX/HYPRO/GLY ARTIFICAL TEARS 225 DROP/15 ML BTL BOTH EYES ×2 (08:42→20:00)
[2024-08-20] MEDS: ASCORBIC ACID 500 MG TABLET PO ×2 (08:42→20:00)
[2024-08-20] MEDS: VITAMIN B COMPLEX PO (08:43)
[2024-08-20] MEDS: SENNOSIDES 8.6 MG TABLET PO ×2 (08:43→20:00)
[2024-08-20] MEDS: ALPRAZolam 0.5 MG TABLET PO ×2 (09:40→18:15)
[2024-08-20] MEDS: guaiFENesin Liq 100 MG/5 ML LIQUID PO (19:51)
--- NOTE | 2024-08-20 23:12 | PD.SAPROG ---
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 (2) Chronic respiratory failure with hypoxia and hypercapnia: Status: Chronic (3) Ventilator dependent: Status: Chronic (4) Congestive heart failure: Status: Chronic (5) Chronic obstructive pulmonary disease, unspecified: Status: Chronic (6) Atrial fibrillation: Status: Chronic (7) Tracheostomy in place: Status: Chronic (8) Chronic anemia: Status: Chronic SUBJECTIVE Fever:: none GI:: none Shortness of Breath:: unchanged GI:: nausea Pain:: none OBJECTIVE Most recent vital signs: Last Vital Signs Temp 98 F 08/20/24 18:00 Pulse 95 08/20/24 22:14 Resp 16 08/20/24 22:14 BP 138/75 H 08/20/24 18:00 Pulse Ox 99 08/20/24 22:14 O2 Del Method Mechanical Ventilation 08/20/24 18:00 FiO2 50 08/20/24 22:14 Neurological:: alert Speech:: nods head, mouths words and appropriate Answers questions:: yes Respiratory:: shallow breathing and rhonchi Cardiovascular: irregular Abdomen: soft Tracheostomy:: to ventilator Feeding per:: po ASSESSMENT & PLAN Assessment: stable. Tolerating ventilatory support. Not weanable because of generalized weakness. Tolerating feeding. Prognosis is very guarded. Patient aware. Tracheostomy revision done surgically. Psychotropics: Xanax 0.5 mgs bid has really done well to settle her anxiety. no side effects seen. She does not do well on lower titration of anxiety meds. No new issues. Had a bedside conversation on quality of life and end of life care at pt's request. Pt remains comfortable on current meds. 08-11-24 had a detailed conversation with pt's son about progressively worsening condition as expected in end stage COPD ventilator dependent and now more weak/inability to thrive. Code status was discussed and the extremely poor prognosis. 08-16-24 Pt's Hb was critical and hence ordered two units packed rbcs. Pt was in no distress. Post infusion levels are improved. Plan: Current treatment as well as ventilator settings reviewed and continued.
[2024-08-21] VITALS (14 sets, daily range): BP systolic 99–140; BP diastolic 57–74; PULSE 68–92; RESP 16–20; TEMP 36.2–36.7; O2SAT 98–100
[2024-08-21] MEDS: IPRATROPIUM/ALBUTEROL 3 ML AMPUL.NEB INH ×6 (02:34→22:15)
[2024-08-21] MEDS: guaiFENesin Liq 100 MG/5 ML LIQUID PO ×2 (02:38→09:01)
--- NOTE | 2024-08-21 04:00 | PC.NURSE ---
Resident continues on antibiotics for UTI. No adverse reaction noted. F/C patent draining clear yellow urine to gravity. No hematuria noted. Fluids tolerated well PO and encouraged. Medicated x1 for c/o pain with positive results noted.
[2024-08-21] MEDS: MIDODRINE 10 MG TABLET PO ×2 (05:14→12:36)
[2024-08-21] MEDS: BUDESONIDE 0.5 MG/2 ML AMPUL.NEB INH ×2 (07:10→19:28)
[2024-08-21] MEDS: ASCORBIC ACID 500 MG TABLET PO ×2 (09:00→20:46)
[2024-08-21] MEDS: AMIODARONE 200 MG TABLET PO (09:00)
[2024-08-21] MEDS: CIPROFLOXACIN HCL 500 MG TABLET GT ×2 (09:01→20:47)
[2024-08-21] MEDS: VITAMIN B COMPLEX PO (09:01)
[2024-08-21] MEDS: MULTIVITAMIN 1 TAB TABLET PO (09:01)
[2024-08-21] MEDS: FAMOTIDINE 20 MG TABLET PO ×2 (09:01→20:47)
[2024-08-21] MEDS: ALPRAZolam 0.5 MG TABLET PO ×2 (09:01→21:00)
[2024-08-21] MEDS: SENNOSIDES 8.6 MG TABLET PO ×2 (09:01→20:47)
[2024-08-21] MEDS: DEX/HYPRO/GLY ARTIFICAL TEARS 225 DROP/15 ML BTL BOTH EYES ×2 (09:01→20:47)
[2024-08-21] MEDS: ACETAMINOPHEN 325 MG TABLET 650 MG PO (09:02)
[2024-08-21] MEDS: ACET PO (14:40)
[2024-08-21] MEDS: HYDRO PO (14:40)
--- NOTE | 2024-08-21 18:52 | PC.NURSE ---
Resident continues on antibiotics for UTI, no adverse reactions or side effects to note. F/C patent draining clear yellow urine to gravity, no hematuria. Fluids encouraged and tolerated well. Medicated x2 for c/o pain with positive results for pain and requested xanax for air hunger anxiety due to COPD. Patient current plan is ongoing, call light in place and answered promptly.
[2024-08-22] VITALS (11 sets, daily range): BP systolic 97–150; BP diastolic 56–77; PULSE 67–97; RESP 16–21; TEMP 36.1–36.6; O2SAT 95–100
[2024-08-22] MEDS: ACETAMINOPHEN 325 MG TABLET 650 MG PO ×2 (02:33→23:12)
[2024-08-22] MEDS: IPRATROPIUM/ALBUTEROL 3 ML AMPUL.NEB INH ×6 (02:33→22:24)
[2024-08-22] MEDS: guaiFENesin Liq 100 MG/5 ML LIQUID PO ×3 (02:33→18:37)
[2024-08-22] MEDS: MIDODRINE 10 MG TABLET PO (05:40)
[2024-08-22] MEDS: BUDESONIDE 0.5 MG/2 ML AMPUL.NEB INH ×2 (07:10→19:45)
[2024-08-22] MEDS: AMIODARONE 200 MG TABLET PO (08:30)
[2024-08-22] MEDS: ASCORBIC ACID 500 MG TABLET PO ×2 (08:31→20:52)
[2024-08-22] MEDS: CIPROFLOXACIN HCL 500 MG TABLET GT ×2 (08:33→20:52)
[2024-08-22] MEDS: DEX/HYPRO/GLY ARTIFICAL TEARS 225 DROP/15 ML BTL BOTH EYES ×2 (08:34→20:52)
[2024-08-22] MEDS: FAMOTIDINE 20 MG TABLET PO ×2 (08:34→20:52)
[2024-08-22] MEDS: SENNOSIDES 8.6 MG TABLET PO ×2 (08:34→20:52)
[2024-08-22] MEDS: MULTIVITAMIN 1 TAB TABLET PO (08:34)
[2024-08-22] MEDS: VITAMIN B COMPLEX PO (08:35)
[2024-08-22] MEDS: ALPRAZolam 0.5 MG TABLET PO ×2 (08:48→17:17)
[2024-08-22] MEDS: ACET PO ×2 (12:17→20:00)
[2024-08-22] MEDS: HYDRO PO ×2 (12:17→20:00)
[2024-08-23] VITALS (11 sets, daily range): BP systolic 96–126; BP diastolic 59–72; PULSE 69–91; RESP 16–18; TEMP 36.1–36.8; O2SAT 95–100
[2024-08-23] MEDS: MIDODRINE 10 MG TABLET PO ×4 (00:34→18:02)
[2024-08-23] MEDS: ALPRAZolam 0.5 MG TABLET PO ×3 (01:45→17:46)
[2024-08-23] MEDS: IPRATROPIUM/ALBUTEROL 3 ML AMPUL.NEB INH ×6 (02:02→22:38)
[2024-08-23] MEDS: BUDESONIDE 0.5 MG/2 ML AMPUL.NEB INH ×2 (06:00→18:00)
[2024-08-23] MEDS: ASCORBIC ACID 500 MG TABLET PO ×2 (09:20→20:06)
[2024-08-23] MEDS: FAMOTIDINE 20 MG TABLET PO ×2 (09:21→20:06)
[2024-08-23] MEDS: CIPROFLOXACIN HCL 500 MG TABLET GT ×2 (09:21→20:06)
[2024-08-23] MEDS: VITAMIN B COMPLEX PO (09:21)
[2024-08-23] MEDS: DEX/HYPRO/GLY ARTIFICAL TEARS 225 DROP/15 ML BTL BOTH EYES ×2 (09:21→20:06)
[2024-08-23] MEDS: SENNOSIDES 8.6 MG TABLET PO ×2 (09:21→20:06)
[2024-08-23] MEDS: MULTIVITAMIN 1 TAB TABLET PO (09:21)
[2024-08-23] MEDS: ACET PO (17:50)
[2024-08-23] MEDS: HYDRO PO (17:50)
[2024-08-23] MEDS: guaiFENesin Liq 100 MG/5 ML LIQUID PO (19:51)
[2024-08-23] MEDS: MICONAZOLE NITRATE 45 GM CREAM.APPL 1 APPL VAGINAL (21:00)
[2024-08-24] VITALS (14 sets, daily range): BP systolic 92–118; BP diastolic 52–63; PULSE 68–91; RESP 16–20; TEMP 36.4–36.7; O2SAT 97–100
[2024-08-24] MEDS: MIDODRINE 10 MG TABLET PO ×4 (00:19→17:01)
[2024-08-24] MEDS: LOPERAMIDE HCL 1 MG/7.5 ML LIQUID GT (00:48)
[2024-08-24] MEDS: ALPRAZolam 0.5 MG TABLET PO ×3 (01:49→21:18)
[2024-08-24] MEDS: ACETAMINOPHEN 325 MG TABLET 650 MG PO ×3 (01:49→23:43)
[2024-08-24] MEDS: IPRATROPIUM/ALBUTEROL 3 ML AMPUL.NEB INH ×6 (02:54→22:25)
--- NOTE | 2024-08-24 03:34 | PC.NURSE ---
Resident on Cipro for UTI, yellow color urine in urine bad noted, bag draining via gravity, no AR or side effects noted, resident afebrile, no s/s of distress at this time, HOB elevated, call light within reach.
[2024-08-24] MEDS: HYDRO PO ×2 (06:25→21:17)
[2024-08-24] MEDS: ACET PO ×2 (06:25→21:17)
[2024-08-24] MEDS: BUDESONIDE 0.5 MG/2 ML AMPUL.NEB INH ×2 (06:53→18:25)
[2024-08-24 08:46] LABS: Basophils % (Auto) 0 % (0-2.5); Eosinophils # (Auto) 0.5 Thou/mm3 (0.0-0.5); Eosinophils % (Auto) 4 % (0-10); Hematocrit 30.3 % (36.0-46.0); Immature Granulocytes % (Auto) 1 % (0-0); Immature Granulocytes Auto 0.07 Thou/mm3 (0.00-0.00); Lymphocytes # (Auto) 1.6 Thou/mm3 (1.0-4.8); Lymphocytes % (Auto) 13 % (10-50); Mean Corpuscular HGB Conc 29.7 g/dl (31.0-37.0); Mean Corpuscular Hemoglobin 29.4 pg (25.0-35.0); Mean Corpuscular Volume 99 fL (80-100); Monocytes # (Auto) 1.2 Thou/mm3 (0.0-0.8); Monocytes % (Auto) 10 % (0-12); Neutrophils # (Auto) 8.5 Thou/mm3 (1.8-7.7); Neutrophils % (Auto) 72 % (37-80); Nucleated Red Blood Cell % 0 /100 WBC (0); Platelet Count 212 Thou/mm3 (140-440); RDW Standard Deviation 64.7 fL (36.4-46.3); Red Blood Count 3.06 Miln/mm3 (4.00-5.20); White Blood Count 11.8 Thou/mm3 (3.6-11.0)
[2024-08-24] MEDS: ASCORBIC ACID 500 MG TABLET PO ×2 (09:09→21:09)
[2024-08-24] MEDS: FAMOTIDINE 20 MG TABLET PO ×2 (09:10→21:10)
[2024-08-24] MEDS: MULTIVITAMIN 1 TAB TABLET PO (09:10)
[2024-08-24] MEDS: DEX/HYPRO/GLY ARTIFICAL TEARS 225 DROP/15 ML BTL BOTH EYES ×2 (09:10→21:09)
[2024-08-24] MEDS: VITAMIN B COMPLEX PO (09:11)
[2024-08-24] MEDS: CIPROFLOXACIN HCL 500 MG TABLET GT (10:02)
--- NOTE | 2024-08-24 16:16 | PD.SAPROG ---
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 (2) Chronic respiratory failure with hypoxia and hypercapnia: Status: Chronic (3) Ventilator dependent: Status: Chronic (4) Congestive heart failure: Status: Chronic (5) Chronic obstructive pulmonary disease, unspecified: Status: Chronic (6) Atrial fibrillation: Status: Chronic (7) Tracheostomy in place: Status: Chronic (8) Chronic anemia: Status: Chronic SUBJECTIVE Fever:: none GI:: none Shortness of Breath:: unchanged GI:: nausea Pain:: none OBJECTIVE Most recent vital signs: Last Vital Signs Temp 97.8 F 08/24/24 12:00 Pulse 76 08/24/24 14:15 Resp 19 08/24/24 14:15 BP 95/61 08/24/24 12:00 Pulse Ox 99 08/24/24 14:15 O2 Del Method Mechanical Ventilation 08/24/24 06:00 FiO2 40 08/24/24 14:15 Neurological:: alert Speech:: nods head, mouths words and appropriate Answers questions:: yes Respiratory:: shallow breathing and rhonchi Cardiovascular: irregular Abdomen: soft Tracheostomy:: to ventilator Feeding per:: po ASSESSMENT & PLAN Assessment: stable. Tolerating ventilatory support. Not weanable because of generalized weakness. Tolerating feeding. Prognosis is very guarded. Patient aware. Tracheostomy revision done surgically. Psychotropics: Xanax 0.5 mgs bid has really done well to settle her anxiety. no side effects seen. She does not do well on lower titration of anxiety meds. No new issues. Had a bedside conversation on quality of life and end of life care at pt's request. Pt remains comfortable on current meds. 08-11-24 had a detailed conversation with pt's son about progressively worsening condition as expected in end stage COPD ventilator dependent and now more weak/inability to thrive. Code status was discussed and the extremely poor prognosis. 08-16-24 Pt's Hb was critical and hence ordered two units packed rbcs. Pt was in no distress. Post infusion levels are improved. General status quo maintained with limited prognosis. Comfort being achieved. Plan: Current treatment as well as ventilator settings reviewed and continued.
--- NOTE | 2024-08-24 19:18 | PC.NURSE ---
Notified Dr Salazar regarding repeat CBC for follow up on Hgb level of 9.0, no new orders at this time.
[2024-08-24] MEDS: SENNOSIDES 8.6 MG TABLET PO (21:10)
[2024-08-24] MEDS: MICONAZOLE NITRATE 45 GM CREAM.APPL 1 APPL VAGINAL (21:10)
[2024-08-24] MEDS: guaiFENesin Liq 100 MG/5 ML LIQUID PO (21:18)
[2024-08-25] VITALS (10 sets, daily range): BP systolic 103–122; BP diastolic 56–74; PULSE 68–89; RESP 16–23; TEMP 36.2–36.7; O2SAT 98–100
[2024-08-25] MEDS: MIDODRINE 10 MG TABLET PO ×4 (00:32→18:22)
[2024-08-25] MEDS: IPRATROPIUM/ALBUTEROL 3 ML AMPUL.NEB INH ×6 (02:50→22:34)
[2024-08-25] MEDS: BUDESONIDE 0.5 MG/2 ML AMPUL.NEB INH ×2 (06:00→18:14)
[2024-08-25] MEDS: AMIODARONE 200 MG TABLET PO (09:04)
[2024-08-25] MEDS: FAMOTIDINE 20 MG TABLET PO ×2 (09:05→20:26)
[2024-08-25] MEDS: DEX/HYPRO/GLY ARTIFICAL TEARS 225 DROP/15 ML BTL BOTH EYES ×2 (09:05→20:26)
[2024-08-25] MEDS: ASCORBIC ACID 500 MG TABLET PO ×2 (09:05→20:25)
[2024-08-25] MEDS: SENNOSIDES 8.6 MG TABLET PO ×2 (09:06→20:27)
[2024-08-25] MEDS: MULTIVITAMIN 1 TAB TABLET PO (09:06)
[2024-08-25] MEDS: VITAMIN B COMPLEX PO (09:07)
[2024-08-25] MEDS: HYDRO PO ×2 (11:15→20:00)
[2024-08-25] MEDS: ACET PO ×2 (11:15→20:00)
[2024-08-25] MEDS: ALPRAZolam 0.5 MG TABLET PO ×2 (15:15→23:00)
[2024-08-25] MEDS: MICONAZOLE NITRATE 45 GM CREAM.APPL 1 APPL VAGINAL (20:27)
[2024-08-25] MEDS: ACETAMINOPHEN 325 MG TABLET 650 MG PO (22:30)
[2024-08-26] VITALS (13 sets, daily range): BP systolic 93–116; BP diastolic 58–65; PULSE 60–79; RESP 16–20; TEMP 36.1–36.4; O2SAT 98–100
[2024-08-26] MEDS: MIDODRINE 10 MG TABLET PO ×3 (00:16→11:54)
[2024-08-26] MEDS: IPRATROPIUM/ALBUTEROL 3 ML AMPUL.NEB INH ×6 (02:02→22:32)
[2024-08-26] MEDS: ACETAMINOPHEN 325 MG TABLET 650 MG PO ×3 (06:00→23:00)
[2024-08-26] MEDS: BUDESONIDE 0.5 MG/2 ML AMPUL.NEB INH ×2 (06:17→19:34)
[2024-08-26] MEDS: AMIODARONE 200 MG TABLET PO (08:42)
[2024-08-26] MEDS: ASCORBIC ACID 500 MG TABLET PO ×2 (08:43→20:04)
[2024-08-26] MEDS: DEX/HYPRO/GLY ARTIFICAL TEARS 225 DROP/15 ML BTL BOTH EYES ×2 (08:43→20:04)
[2024-08-26] MEDS: FAMOTIDINE 20 MG TABLET PO ×2 (08:43→20:04)
[2024-08-26] MEDS: MULTIVITAMIN 1 TAB TABLET PO (08:43)
[2024-08-26] MEDS: SENNOSIDES 8.6 MG TABLET PO ×2 (08:44→20:04)
[2024-08-26] MEDS: VITAMIN B COMPLEX PO (08:45)
[2024-08-26] MEDS: guaiFENesin Liq 100 MG/5 ML LIQUID PO ×2 (08:49→20:00)
[2024-08-26] MEDS: ALPRAZolam 0.5 MG TABLET PO ×2 (12:35→20:00)
[2024-08-26] MEDS: MICONAZOLE NITRATE 45 GM CREAM.APPL 1 APPL VAGINAL (20:04)
[2024-08-27] VITALS (13 sets, daily range): BP systolic 98–131; BP diastolic 64–78; PULSE 66–84; RESP 16–22; TEMP 36.3–36.6; O2SAT 98–100
[2024-08-27] MEDS: MIDODRINE 10 MG TABLET PO ×3 (00:13→12:15)
[2024-08-27] MEDS: ACET PO ×2 (01:00→17:00)
[2024-08-27] MEDS: HYDRO PO ×2 (01:00→17:00)
[2024-08-27] MEDS: IPRATROPIUM/ALBUTEROL 3 ML AMPUL.NEB INH ×6 (02:40→22:15)
[2024-08-27] MEDS: ACETAMINOPHEN 325 MG TABLET 650 MG PO ×3 (05:30→23:12)
[2024-08-27] MEDS: BUDESONIDE 0.5 MG/2 ML AMPUL.NEB INH ×2 (06:17→18:08)
[2024-08-27] MEDS: AMIODARONE 200 MG TABLET PO (08:53)
[2024-08-27] MEDS: ASCORBIC ACID 500 MG TABLET PO ×2 (08:54→20:04)
[2024-08-27] MEDS: DEX/HYPRO/GLY ARTIFICAL TEARS 225 DROP/15 ML BTL BOTH EYES ×2 (08:55→20:04)
[2024-08-27] MEDS: FAMOTIDINE 20 MG TABLET PO ×2 (08:55→20:05)
[2024-08-27] MEDS: SENNOSIDES 8.6 MG TABLET PO ×2 (08:56→20:05)
[2024-08-27] MEDS: VITAMIN B COMPLEX PO (08:56)
[2024-08-27] MEDS: MULTIVITAMIN 1 TAB TABLET PO (08:56)
[2024-08-27] MEDS: ALPRAZolam 0.5 MG TABLET PO ×2 (10:30→20:03)
--- NOTE | 2024-08-27 10:51 | PC.SS ---
This SSD spoke with RP Francisco Javier Blakely regarding resident current condition and notable decline. Francisco Javier stated he will speak with resident at next visit about code status, he stated he will not decide for her as this is her decision to make. Francisco Javier talked about the last time she was admitted to ICU and his concerns. All concerns were discussed, he no longer had questions or concerns. This SSD will continue to offer emotional support to resident and family.
--- NOTE | 2024-08-27 15:23 | PC.IP ---
IP Note: Received Moderna Spikevax Covid 24- vaccine at 1030 to Right deltoid Lot # [id number] Exp: 04/05/25. Staff will monitor for signs and symptoms of fever or discomfort.
--- NOTE | 2024-08-27 16:02 | PC.IP ---
IP Note: Received Moderna Spikevax 24-25 Covid vaccine to right deltoid. Lot# [id number] Exp: 04/05/25. Staff will monitor for signs of fever and discomfort.
[2024-08-27] MEDS: guaiFENesin Liq 100 MG/5 ML LIQUID PO (16:30)
[2024-08-27] MEDS: MICONAZOLE NITRATE 45 GM CREAM.APPL 1 APPL VAGINAL (20:04)
[2024-08-28] VITALS (14 sets, daily range): BP systolic 100–130; BP diastolic 56–73; PULSE 65–81; RESP 16–22; TEMP 36.1–36.6; O2SAT 96–100
[2024-08-28] MEDS: IPRATROPIUM/ALBUTEROL 3 ML AMPUL.NEB INH ×6 (02:00→22:28)
[2024-08-28] MEDS: MIDODRINE 10 MG TABLET PO ×4 (05:31→17:35)
[2024-08-28] MEDS: BUDESONIDE 0.5 MG/2 ML AMPUL.NEB INH ×2 (06:12→18:20)
[2024-08-28] MEDS: FAMOTIDINE 20 MG TABLET PO ×2 (09:40→21:01)
[2024-08-28] MEDS: DEX/HYPRO/GLY ARTIFICAL TEARS 225 DROP/15 ML BTL BOTH EYES ×2 (09:40→21:01)
[2024-08-28] MEDS: MULTIVITAMIN 1 TAB TABLET PO (09:40)
[2024-08-28] MEDS: SENNOSIDES 8.6 MG TABLET PO ×2 (09:40→21:13)
[2024-08-28] MEDS: ASCORBIC ACID 500 MG TABLET PO ×2 (09:40→21:13)
[2024-08-28] MEDS: VITAMIN B COMPLEX PO (09:41)
[2024-08-28] MEDS: ALPRAZolam 0.5 MG TABLET PO ×2 (09:48→19:51)
[2024-08-28] MEDS: AMIODARONE 200 MG TABLET PO (09:49)
[2024-08-28] MEDS: guaiFENesin Liq 100 MG/5 ML LIQUID PO (11:21)
[2024-08-28] MEDS: HYDRO PO (14:55)
[2024-08-28] MEDS: ACET PO (14:55)
--- NOTE | 2024-08-28 17:22 | PD.SAPROG ---
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 (2) Chronic respiratory failure with hypoxia and hypercapnia: Status: Chronic (3) Ventilator dependent: Status: Chronic (4) Congestive heart failure: Status: Chronic (5) Chronic obstructive pulmonary disease, unspecified: Status: Chronic (6) Atrial fibrillation: Status: Chronic (7) Tracheostomy in place: Status: Chronic (8) Chronic anemia: Status: Chronic SUBJECTIVE Fever:: none GI:: none Shortness of Breath:: unchanged GI:: nausea Pain:: none OBJECTIVE Most recent vital signs: Last Vital Signs Temp 97.1 F 08/28/24 11:35 Pulse 69 08/28/24 14:10 Resp 16 08/28/24 14:10 BP 100/58 L 08/28/24 11:35 Pulse Ox 100 08/28/24 14:10 O2 Del Method Mechanical Ventilation 08/28/24 11:35 FiO2 40 08/28/24 14:10 Neurological:: alert Speech:: nods head, mouths words and appropriate Answers questions:: yes Respiratory:: shallow breathing and rhonchi Cardiovascular: irregular Abdomen: soft Tracheostomy:: to ventilator Feeding per:: po ASSESSMENT & PLAN Assessment: stable. Tolerating ventilatory support. Not weanable because of generalized weakness. Tolerating feeding. Prognosis is very guarded. Patient aware. Tracheostomy revision done surgically. Psychotropics: Xanax 0.5 mgs bid has really done well to settle her anxiety. no side effects seen. She does not do well on lower titration of anxiety meds. No new issues. Had a bedside conversation on quality of life and end of life care at pt's request. Pt remains comfortable on current meds. 08-11-24 had a detailed conversation with pt's son about progressively worsening condition as expected in end stage COPD ventilator dependent and now more weak/inability to thrive. Code status was discussed and the extremely poor prognosis. 08-16-24 Pt's Hb was critical and hence ordered two units packed rbcs. Pt was in no distress. Post infusion levels are improved. General status quo maintained with limited prognosis. Comfort being achieved. Plan: Current treatment as well as ventilator settings reviewed and continued.
[2024-08-28] MEDS: ACETAMINOPHEN 325 MG TABLET 650 MG PO (19:50)
[2024-08-28] MEDS: MICONAZOLE NITRATE 45 GM CREAM.APPL 1 APPL VAGINAL (21:11)
[2024-08-29] VITALS (13 sets, daily range): BP systolic 97–137; BP diastolic 52–84; PULSE 71–93; RESP 16–20; TEMP 36.1–36.9; O2SAT 98–100
[2024-08-29] MEDS: IPRATROPIUM/ALBUTEROL 3 ML AMPUL.NEB INH ×6 (02:00→22:00)
[2024-08-29] MEDS: MIDODRINE 10 MG TABLET PO ×2 (05:00→11:53)
[2024-08-29] MEDS: BUDESONIDE 0.5 MG/2 ML AMPUL.NEB INH ×2 (06:17→18:00)
[2024-08-29] MEDS: AMIODARONE 200 MG TABLET PO (09:13)
[2024-08-29] MEDS: FAMOTIDINE 20 MG TABLET PO ×2 (09:14→21:11)
[2024-08-29] MEDS: DEX/HYPRO/GLY ARTIFICAL TEARS 225 DROP/15 ML BTL BOTH EYES ×2 (09:14→21:11)
[2024-08-29] MEDS: ASCORBIC ACID 500 MG TABLET PO ×2 (09:14→21:11)
[2024-08-29] MEDS: MULTIVITAMIN 1 TAB TABLET PO (09:14)
[2024-08-29] MEDS: SENNOSIDES 8.6 MG TABLET PO ×2 (09:15→21:11)
[2024-08-29] MEDS: VITAMIN B COMPLEX PO (09:16)
[2024-08-29] MEDS: ALPRAZolam 0.5 MG TABLET PO ×2 (09:19→19:45)
[2024-08-29] MEDS: guaiFENesin Liq 100 MG/5 ML LIQUID PO (09:43)
[2024-08-29] MEDS: HYDRO PO ×2 (13:54→23:00)
[2024-08-29] MEDS: ACET PO ×2 (13:54→23:00)
[2024-08-29] MEDS: ACETAMINOPHEN 325 MG TABLET 650 MG PO (16:20)
[2024-08-29] MEDS: MICONAZOLE NITRATE 45 GM CREAM.APPL 1 APPL VAGINAL (21:11)
[2024-08-30] VITALS (12 sets, daily range): BP systolic 96–111; BP diastolic 54–66; PULSE 66–87; RESP 16–20; TEMP 36.1–36.6; O2SAT 97–100
[2024-08-30] MEDS: ACETAMINOPHEN 325 MG TABLET 650 MG PO ×3 (00:32→23:00)
[2024-08-30] MEDS: IPRATROPIUM/ALBUTEROL 3 ML AMPUL.NEB INH ×6 (02:00→23:00)
[2024-08-30] MEDS: MIDODRINE 10 MG TABLET PO ×3 (05:31→17:15)
[2024-08-30] MEDS: BUDESONIDE 0.5 MG/2 ML AMPUL.NEB INH ×2 (06:05→19:40)
[2024-08-30] MEDS: ASCORBIC ACID 500 MG TABLET PO ×2 (08:38→20:10)
[2024-08-30] MEDS: AMIODARONE 200 MG TABLET PO (08:38)
[2024-08-30] MEDS: VITAMIN B COMPLEX PO (08:39)
[2024-08-30] MEDS: FAMOTIDINE 20 MG TABLET PO ×2 (08:39→20:10)
[2024-08-30] MEDS: MULTIVITAMIN 1 TAB TABLET PO (08:39)
[2024-08-30] MEDS: SENNOSIDES 8.6 MG TABLET PO ×2 (08:39→20:10)
[2024-08-30] MEDS: DEX/HYPRO/GLY ARTIFICAL TEARS 225 DROP/15 ML BTL BOTH EYES ×2 (08:39→20:10)
[2024-08-30] MEDS: ALPRAZolam 0.5 MG TABLET PO ×2 (08:40→20:00)
--- NOTE | 2024-08-30 13:49 | PC.SS ---
This SSD spoke with resident, she wrote a letter to this SSD asking to be transferred to [facility] to be closer to family. Resident states she is lonely without her family, she stated her family is busy and unable to come visit more often. Last week this SSD met with resident RP/son Francisco Javier Blakely. He stated he is happy with having resident stay in current care, he stated there is a distance for travel but her likes the care and the staff and is nervous about starting over at another unfamiliar facility. This SSD informed resident Francisco Javier would be included in the conversation to be moved as he is her route service representative and make decisions together. Resident agreed, this SSD has called and left message for Francisco Javier.
[2024-08-30] MEDS: guaiFENesin Liq 100 MG/5 ML LIQUID PO (20:00)
--- NOTE | 2024-08-30 21:20 | PD.SAPROG ---
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 (2) Chronic respiratory failure with hypoxia and hypercapnia: Status: Chronic (3) Ventilator dependent: Status: Chronic (4) Congestive heart failure: Status: Chronic (5) Chronic obstructive pulmonary disease, unspecified: Status: Chronic (6) Atrial fibrillation: Status: Chronic (7) Tracheostomy in place: Status: Chronic (8) Chronic anemia: Status: Chronic SUBJECTIVE Fever:: none GI:: none Shortness of Breath:: unchanged GI:: nausea Pain:: none OBJECTIVE Most recent vital signs: Last Vital Signs Temp 97.8 F 08/30/24 16:57 Pulse 76 08/30/24 16:57 Resp 18 08/30/24 16:57 BP 101/57 L 08/30/24 16:57 Pulse Ox 97 08/30/24 16:57 O2 Del Method Mechanical Ventilation 08/30/24 16:57 FiO2 40 08/30/24 14:15 Neurological:: alert Speech:: nods head, mouths words and appropriate Answers questions:: yes Respiratory:: shallow breathing and rhonchi Cardiovascular: irregular Abdomen: soft Tracheostomy:: to ventilator Feeding per:: po ASSESSMENT & PLAN Assessment: stable. Tolerating ventilatory support. Not weanable because of generalized weakness. Tolerating feeding. Prognosis is very guarded. Patient aware. Tracheostomy revision done surgically. Psychotropics: Xanax 0.5 mgs bid has really done well to settle her anxiety. no side effects seen. She does not do well on lower titration of anxiety meds. No new issues. Had a bedside conversation on quality of life and end of life care at pt's request. Pt remains comfortable on current meds. 08-11-24 had a detailed conversation with pt's son about progressively worsening condition as expected in end stage COPD ventilator dependent and now more weak/inability to thrive. Code status was discussed and the extremely poor prognosis. 08-16-24 Pt's Hb was critical and hence ordered two units packed rbcs. Pt was in no distress. Post infusion levels are improved. General status quo maintained with limited prognosis. Comfort being achieved. Plan: Current treatment as well as ventilator settings reviewed and continued.
[2024-08-31] VITALS (11 sets, daily range): BP systolic 94–124; BP diastolic 55–75; PULSE 58–81; RESP 16–21; TEMP 36.4–36.6; O2SAT 94–100
[2024-08-31] MEDS: MIDODRINE 10 MG TABLET PO ×3 (00:39→12:03)
[2024-08-31] MEDS: IPRATROPIUM/ALBUTEROL 3 ML AMPUL.NEB INH ×6 (02:00→23:00)
[2024-08-31] MEDS: guaiFENesin Liq 100 MG/5 ML LIQUID PO ×4 (02:00→23:30)
[2024-08-31] MEDS: BUDESONIDE 0.5 MG/2 ML AMPUL.NEB INH ×2 (07:10→19:52)
[2024-08-31 07:48] LABS: Basophils % (Auto) 0 % (0-2.5); Eosinophils # (Auto) 0.3 Thou/mm3 (0.0-0.5); Eosinophils % (Auto) 3 % (0-10); Hematocrit 29.4 % (36.0-46.0); Immature Granulocytes % (Auto) 0 % (0-0); Immature Granulocytes Auto 0.03 Thou/mm3 (0.00-0.00); Lymphocytes # (Auto) 1.5 Thou/mm3 (1.0-4.8); Lymphocytes % (Auto) 17 % (10-50); Mean Corpuscular HGB Conc 29.9 g/dl (31.0-37.0); Mean Corpuscular Hemoglobin 29.7 pg (25.0-35.0); Mean Corpuscular Volume 99 fL (80-100); Monocytes % (Auto) 11 % (0-12); Neutrophils # (Auto) 6.4 Thou/mm3 (1.8-7.7); Neutrophils % (Auto) 69 % (37-80); Nucleated Red Blood Cell % 0 /100 WBC (0); Platelet Count 207 Thou/mm3 (140-440); RDW Standard Deviation 68.2 fL (36.4-46.3); Red Blood Count 2.96 Miln/mm3 (4.00-5.20); White Blood Count 9.3 Thou/mm3 (3.6-11.0)
[2024-08-31 08:09] LABS: Hemoglobin 8.8 g/dL (12.0-16.0)
[2024-08-31] MEDS: ALPRAZolam 0.5 MG TABLET PO ×2 (08:15→19:30)
[2024-08-31] MEDS: ASCORBIC ACID 500 MG TABLET PO ×2 (08:16→20:12)
[2024-08-31] MEDS: MULTIVITAMIN 1 TAB TABLET PO (08:17)
[2024-08-31] MEDS: DEX/HYPRO/GLY ARTIFICAL TEARS 225 DROP/15 ML BTL BOTH EYES ×2 (08:17→20:13)
[2024-08-31] MEDS: SENNOSIDES 8.6 MG TABLET PO ×2 (08:17→20:13)
[2024-08-31] MEDS: FAMOTIDINE 20 MG TABLET PO ×2 (08:17→20:13)
[2024-08-31] MEDS: VITAMIN B COMPLEX PO (08:17)
[2024-08-31] MEDS: ACETAMINOPHEN 325 MG TABLET 650 MG PO (12:00)
[2024-08-31] MEDS: HYDRO PO (19:00)
[2024-08-31] MEDS: ACET PO (19:00)
[2024-09-01] VITALS (10 sets, daily range): BP systolic 89–124; BP diastolic 52–70; PULSE 71–89; RESP 16–20; TEMP 36.1–36.7; O2SAT 95–100
[2024-09-01] MEDS: MIDODRINE 10 MG TABLET PO ×4 (00:01→18:22)
[2024-09-01] MEDS: ALPRAZolam 0.5 MG TABLET PO ×3 (03:00→20:15)
[2024-09-01] MEDS: IPRATROPIUM/ALBUTEROL 3 ML AMPUL.NEB INH ×5 (03:02→22:45)
[2024-09-01] MEDS: ACETAMINOPHEN 325 MG TABLET 650 MG PO (03:30)
[2024-09-01] MEDS: BUDESONIDE 0.5 MG/2 ML AMPUL.NEB INH ×2 (06:52→18:00)
[2024-09-01] MEDS: FAMOTIDINE 20 MG TABLET PO ×2 (08:41→20:18)
[2024-09-01] MEDS: DEX/HYPRO/GLY ARTIFICAL TEARS 225 DROP/15 ML BTL BOTH EYES ×2 (08:41→20:18)
[2024-09-01] MEDS: SENNOSIDES 8.6 MG TABLET PO ×2 (08:41→20:18)
[2024-09-01] MEDS: ASCORBIC ACID 500 MG TABLET PO ×2 (08:41→20:17)
[2024-09-01] MEDS: MULTIVITAMIN 1 TAB TABLET PO (08:41)
[2024-09-01] MEDS: VITAMIN B COMPLEX PO (08:41)
[2024-09-01] MEDS: guaiFENesin Liq 100 MG/5 ML LIQUID PO (10:48)
[2024-09-01] MEDS: HYDRO PO (20:30)
[2024-09-01] MEDS: ACET PO (20:30)
[2024-09-02] VITALS (12 sets, daily range): BP systolic 95–126; BP diastolic 53–71; PULSE 60–84; RESP 16–20; TEMP 36.1–36.4; O2SAT 95–99
[2024-09-02] MEDS: MIDODRINE 10 MG TABLET PO ×4 (00:02→17:27)
[2024-09-02] MEDS: IPRATROPIUM/ALBUTEROL 3 ML AMPUL.NEB INH ×7 (03:30→22:05)
[2024-09-02] MEDS: ALPRAZolam 0.5 MG TABLET PO ×2 (04:00→15:01)
[2024-09-02] MEDS: DEX/HYPRO/GLY ARTIFICAL TEARS 225 DROP/15 ML BTL BOTH EYES ×2 (09:24→21:01)
[2024-09-02] MEDS: ASCORBIC ACID 500 MG TABLET PO ×2 (09:24→21:01)
[2024-09-02] MEDS: VITAMIN B COMPLEX PO (09:25)
[2024-09-02] MEDS: FAMOTIDINE 20 MG TABLET PO ×2 (09:25→21:01)
[2024-09-02] MEDS: SENNOSIDES 8.6 MG TABLET PO ×2 (09:25→21:01)
[2024-09-02] MEDS: MULTIVITAMIN 1 TAB TABLET PO (09:25)
[2024-09-02] MEDS: BUDESONIDE 0.5 MG/2 ML AMPUL.NEB INH ×2 (10:15→18:20)
[2024-09-02] MEDS: FLU VACC TS 2024-25 (6 MOS UP) 45 MCG/0.5 ML VIAL IMi (11:07)
[2024-09-02] MEDS: ACETAMINOPHEN 325 MG TABLET 650 MG PO ×2 (15:01→21:04)
--- NOTE | 2024-09-02 17:27 | PC.NURSE ---
Flu vaccine administered 09/02/24 lot number incorrect in [facility]. Correct lot number [id number] exp May 30, 2025.
[2024-09-03] VITALS (13 sets, daily range): BP systolic 112–126; BP diastolic 61–75; PULSE 62–91; RESP 16–19; TEMP 36.1–36.6; O2SAT 97–99
[2024-09-03] MEDS: MIDODRINE 10 MG TABLET PO ×3 (00:05→17:23)
[2024-09-03] MEDS: IPRATROPIUM/ALBUTEROL 3 ML AMPUL.NEB INH ×6 (02:00→22:00)
[2024-09-03] MEDS: BUDESONIDE 0.5 MG/2 ML AMPUL.NEB INH ×2 (06:07→18:00)
[2024-09-03] MEDS: AMIODARONE 200 MG TABLET PO (09:20)
[2024-09-03] MEDS: DEX/HYPRO/GLY ARTIFICAL TEARS 225 DROP/15 ML BTL BOTH EYES ×2 (09:21→20:40)
[2024-09-03] MEDS: VITAMIN B COMPLEX PO (09:21)
[2024-09-03] MEDS: FAMOTIDINE 20 MG TABLET PO ×2 (09:21→20:40)
[2024-09-03] MEDS: MULTIVITAMIN 1 TAB TABLET PO (09:21)
[2024-09-03] MEDS: ASCORBIC ACID 500 MG TABLET PO ×2 (09:21→20:40)
[2024-09-03] MEDS: SENNOSIDES 8.6 MG TABLET PO ×2 (09:21→20:40)
[2024-09-03] MEDS: guaiFENesin Liq 100 MG/5 ML LIQUID PO (12:50)
--- NOTE | 2024-09-03 15:06 | PC.SS ---
Room visit: Resident is laying in bed with head of the bed elevated with call light properly placed with no signs of distress. Resident has no changes in care or condition, resident remains on ventilator with trach in place and GT for medication and nutrition. Resident buck Blakely comes to visit at bedside on Fridays. Resident will remain in current care and will continue to have all subacute care needs met by staff. This SSD will continue to make daily contact with resident and monitor for changes in mood and behavior.
[2024-09-03] MEDS: ALPRAZolam 0.5 MG TABLET PO (15:23)
[2024-09-03] MEDS: ACETAMINOPHEN 325 MG TABLET 650 MG PO (16:15)
[2024-09-03] MEDS: HYDRO PO (20:43)
[2024-09-03] MEDS: ACET PO (20:43)
--- NOTE | 2024-09-03 21:26 | PD.SAPROG ---
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 (2) Chronic respiratory failure with hypoxia and hypercapnia: Status: Chronic (3) Ventilator dependent: Status: Chronic (4) Congestive heart failure: Status: Chronic (5) Chronic obstructive pulmonary disease, unspecified: Status: Chronic (6) Atrial fibrillation: Status: Chronic (7) Tracheostomy in place: Status: Chronic (8) Chronic anemia: Status: Chronic SUBJECTIVE Fever:: none GI:: none Shortness of Breath:: unchanged GI:: nausea Pain:: none OBJECTIVE Most recent vital signs: Last Vital Signs Temp 97.8 F 09/03/24 16:43 Pulse 70 09/03/24 16:43 Resp 16 09/03/24 16:43 BP 115/63 09/03/24 16:43 Pulse Ox 98 09/03/24 12:12 O2 Del Method Mechanical Ventilation 09/03/24 12:00 FiO2 40 09/03/24 12:12 Neurological:: alert Speech:: nods head, mouths words and appropriate Answers questions:: yes Respiratory:: shallow breathing and rhonchi Cardiovascular: irregular Abdomen: soft Tracheostomy:: to ventilator Feeding per:: po ASSESSMENT & PLAN Assessment: stable. Tolerating ventilatory support. Not weanable because of generalized weakness. Tolerating feeding. Prognosis is very guarded. Patient aware. Tracheostomy revision done surgically. Psychotropics: Xanax 0.5 mgs bid has really done well to settle her anxiety. no side effects seen. She does not do well on lower titration of anxiety meds. No new issues. Had a bedside conversation on quality of life and end of life care at pt's request. Pt remains comfortable on current meds. 08-11-24 had a detailed conversation with pt's son about progressively worsening condition as expected in end stage COPD ventilator dependent and now more weak/inability to thrive. Code status was discussed and the extremely poor prognosis. 08-16-24 Pt's Hb was critical and hence ordered two units packed rbcs. Pt was in no distress. Post infusion levels are improved. General status quo maintained with expected worsening with limited prognosis. Comfort being achieved. Plan: Current treatment as well as ventilator settings reviewed and continued.
[2024-09-04] VITALS (13 sets, daily range): BP systolic 97–138; BP diastolic 54–71; PULSE 60–82; RESP 16–20; TEMP 36.1–36.9; O2SAT 98–99
[2024-09-04] MEDS: guaiFENesin Liq 100 MG/5 ML LIQUID PO ×3 (00:10→20:52)
[2024-09-04] MEDS: IPRATROPIUM/ALBUTEROL 3 ML AMPUL.NEB INH ×6 (02:00→22:00)
[2024-09-04] MEDS: ACETAMINOPHEN 325 MG TABLET 650 MG PO ×3 (03:29→21:59)
[2024-09-04] MEDS: ALPRAZolam 0.5 MG TABLET PO ×2 (03:30→15:54)
[2024-09-04] MEDS: MIDODRINE 10 MG TABLET PO ×3 (06:14→17:22)
[2024-09-04] MEDS: BUDESONIDE 0.5 MG/2 ML AMPUL.NEB INH ×2 (06:51→18:40)
[2024-09-04] MEDS: ASCORBIC ACID 500 MG TABLET PO ×2 (09:23→20:48)
[2024-09-04] MEDS: AMIODARONE 200 MG TABLET PO (09:23)
[2024-09-04] MEDS: SENNOSIDES 8.6 MG TABLET PO ×2 (09:24→20:48)
[2024-09-04] MEDS: FAMOTIDINE 20 MG TABLET PO ×2 (09:24→20:48)
[2024-09-04] MEDS: VITAMIN B COMPLEX PO (09:24)
[2024-09-04] MEDS: DEX/HYPRO/GLY ARTIFICAL TEARS 225 DROP/15 ML BTL BOTH EYES ×2 (09:24→20:48)
[2024-09-04] MEDS: MULTIVITAMIN 1 TAB TABLET PO (09:24)
[2024-09-04] MEDS: ACET PO (16:20)
[2024-09-04] MEDS: HYDRO PO (16:20)
[2024-09-05] VITALS (13 sets, daily range): BP systolic 96–122; BP diastolic 58–74; PULSE 61–80; RESP 16–23; TEMP 35.7–36.6; O2SAT 97–100
[2024-09-05] MEDS: ALPRAZolam 0.5 MG TABLET PO ×2 (00:30→20:00)
[2024-09-05] MEDS: IPRATROPIUM/ALBUTEROL 3 ML AMPUL.NEB INH ×6 (02:05→22:00)
[2024-09-05] MEDS: ACET PO ×2 (02:10→13:54)
[2024-09-05] MEDS: HYDRO PO ×2 (02:10→13:54)
[2024-09-05] MEDS: MIDODRINE 10 MG TABLET PO ×4 (05:23→23:58)
[2024-09-05] MEDS: BUDESONIDE 0.5 MG/2 ML AMPUL.NEB INH ×2 (06:17→18:00)
[2024-09-05] MEDS: ACETAMINOPHEN 325 MG TABLET 650 MG PO (09:05)
[2024-09-05] MEDS: DEX/HYPRO/GLY ARTIFICAL TEARS 225 DROP/15 ML BTL BOTH EYES ×2 (09:07→20:09)
[2024-09-05] MEDS: MULTIVITAMIN 1 TAB TABLET PO (09:07)
[2024-09-05] MEDS: ASCORBIC ACID 500 MG TABLET PO ×2 (09:07→20:09)
[2024-09-05] MEDS: FAMOTIDINE 20 MG TABLET PO ×2 (09:07→20:09)
[2024-09-05] MEDS: SENNOSIDES 8.6 MG TABLET PO ×2 (09:08→20:09)
[2024-09-05] MEDS: VITAMIN B COMPLEX PO (09:10)
[2024-09-05] MEDS: guaiFENesin Liq 100 MG/5 ML LIQUID PO (14:47)
[2024-09-06] VITALS (13 sets, daily range): BP systolic 93–133; BP diastolic 51–76; PULSE 62–89; RESP 14–22; TEMP 36–36.1; O2SAT 96–100
[2024-09-06] MEDS: guaiFENesin Liq 100 MG/5 ML LIQUID PO ×3 (00:02→20:56)
[2024-09-06] MEDS: HYDRO PO ×2 (00:03→11:10)
[2024-09-06] MEDS: ACET PO ×2 (00:03→11:10)
[2024-09-06] MEDS: IPRATROPIUM/ALBUTEROL 3 ML AMPUL.NEB INH ×6 (02:00→22:00)
[2024-09-06] MEDS: ACETAMINOPHEN 325 MG TABLET 650 MG PO ×2 (04:48→21:05)
[2024-09-06] MEDS: ALPRAZolam 0.5 MG TABLET PO ×3 (05:46→23:14)
[2024-09-06] MEDS: MIDODRINE 10 MG TABLET PO ×3 (06:00→17:36)
[2024-09-06] MEDS: BUDESONIDE 0.5 MG/2 ML AMPUL.NEB INH ×2 (06:33→18:50)
[2024-09-06] MEDS: ASCORBIC ACID 500 MG TABLET PO ×2 (09:11→21:04)
[2024-09-06] MEDS: AMIODARONE 200 MG TABLET PO (09:11)
[2024-09-06] MEDS: DEX/HYPRO/GLY ARTIFICAL TEARS 225 DROP/15 ML BTL BOTH EYES ×2 (09:11→21:04)
[2024-09-06] MEDS: VITAMIN B COMPLEX PO (09:12)
[2024-09-06] MEDS: FAMOTIDINE 20 MG TABLET PO ×2 (09:12→21:05)
[2024-09-06] MEDS: MULTIVITAMIN 1 TAB TABLET PO (09:12)
[2024-09-06] MEDS: SENNOSIDES 8.6 MG TABLET PO ×2 (09:12→21:05)
--- NOTE | 2024-09-06 14:17 | PC.SS ---
This SSD spoke with resident AMINTA/Gorge Blakely regarding his visit with resident. We discussed resident requesting to be moved to [facility] to be closer to family. Gorge said I do not give my blessing said he does not want her moved from current facility. He stated he likes current facility and the care resident receives. This SSD spoke with resident about this as she stated she is sad about it and said she still wants to think about it. This SSD and resident agreed to follow up on Friday to further discuss the the topic of moving. Gorge stated he and resident spoke of her current code status and her health, gorge said he is supportive on whatever she decides on her code status. This SSD and resident spoke about her code status, she stated she would be willing to speak with MD regarding possibly changing her code status to be put on comfort care. Shortly after resident stated she would like her code status to remain the same (FULL CODE) she stated she did not need to speak with MD and would decide later on changing her code status if needed.
[2024-09-07] VITALS (13 sets, daily range): BP systolic 96–134; BP diastolic 60–74; PULSE 69–93; RESP 16–24; TEMP 36.1–36.6; O2SAT 95–99
[2024-09-07] MEDS: IPRATROPIUM/ALBUTEROL 3 ML AMPUL.NEB INH ×6 (02:10→22:30)
[2024-09-07] MEDS: HYDRO PO ×2 (04:45→19:54)
[2024-09-07] MEDS: ACET PO ×2 (04:45→19:54)
[2024-09-07] MEDS: BUDESONIDE 0.5 MG/2 ML AMPUL.NEB INH ×2 (06:22→18:30)
[2024-09-07] MEDS: ASCORBIC ACID 500 MG TABLET PO ×2 (09:10→21:51)
[2024-09-07] MEDS: MULTIVITAMIN 1 TAB TABLET PO (09:10)
[2024-09-07] MEDS: AMIODARONE 200 MG TABLET PO (09:10)
[2024-09-07] MEDS: FAMOTIDINE 20 MG TABLET PO ×2 (09:10→21:51)
[2024-09-07] MEDS: DEX/HYPRO/GLY ARTIFICAL TEARS 225 DROP/15 ML BTL BOTH EYES ×2 (09:10→21:51)
[2024-09-07] MEDS: SENNOSIDES 8.6 MG TABLET PO ×2 (09:11→21:51)
[2024-09-07] MEDS: VITAMIN B COMPLEX PO (09:11)
[2024-09-07] MEDS: MIDODRINE 10 MG TABLET PO ×2 (11:40→17:18)
[2024-09-07] MEDS: ALPRAZolam 0.5 MG TABLET PO ×2 (14:14→22:50)
--- NOTE | 2024-09-07 16:17 | PC.SS ---
Room visit: Resident had a good morning she was all smiles and wide awake during visit. She was engaging and social, this SSD brought her breakfast tray she stated it was her second serving of Biscuits & gravy. Resident is seen laying in bed wearing hospital gown as she prefers to wear that versus her own clothing. Resident states she gets short of breath when she is moved around. This SSD will continue to make bedside visits with resident and offer support for any needs she may have.
--- NOTE | 2024-09-07 22:10 | ESPR_ITS ---
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 (2) Chronic respiratory failure with hypoxia and hypercapnia: Status: Chronic (3) Ventilator dependent: Status: Chronic (4) Congestive heart failure: Status: Chronic (5) Chronic obstructive pulmonary disease, unspecified: Status: Chronic (6) Atrial fibrillation: Status: Chronic (7) Tracheostomy in place: Status: Chronic (8) Chronic anemia: Status: Chronic SUBJECTIVE Fever:: none GI:: none Shortness of Breath:: unchanged GI:: nausea Pain:: none OBJECTIVE Most recent vital signs: Last Vital Signs Temp 97 F 09/07/24 17:15 Pulse 73 09/07/24 17:15 Resp 16 09/07/24 17:15 BP 120/74 09/07/24 17:15 Pulse Ox 99 09/07/24 14:36 O2 Del Method Mechanical Ventilation 09/07/24 11:46 FiO2 40 09/07/24 14:36 Neurological:: alert Speech:: nods head, mouths words and appropriate Answers questions:: yes Respiratory:: shallow breathing and rhonchi Cardiovascular: irregular Abdomen: soft Tracheostomy:: to ventilator Feeding per:: po ASSESSMENT & PLAN Assessment: stable. Tolerating ventilatory support. Not weanable because of generalized weakness. Tolerating feeding. Prognosis is very guarded. Patient aware. Tracheostomy revision done surgically. Psychotropics: Xanax 0.5 mgs bid has really done well to settle her anxiety. no side effects seen. She does not do well on lower titration of anxiety meds. No new issues. Had a bedside conversation on quality of life and end of life care at pt's [facility]. Pt remains comfortable on current meds. 08-11-24 had a detailed conversation with pt's son about progressively worsening condition as expected in end stage COPD ventilator dependent and now more weak/inability to thrive. Code status was discussed and the extremely poor prognosis. 08-16-24 Pt's Hb was critical and hence ordered two units packed rbcs. Pt was in no distress. Post infusion levels are improved. General status quo maintained with expected worsening with limited prognosis. Comfort being achieved. Plan: Current treatment as well as ventilator settings reviewed and continued.
[2024-09-08] VITALS (12 sets, daily range): BP systolic 105–127; BP diastolic 55–81; PULSE 57–96; RESP 16–20; TEMP 35.7–36.4; O2SAT 97–99
[2024-09-08] MEDS: IPRATROPIUM/ALBUTEROL 3 ML AMPUL.NEB INH ×6 (02:20→22:10)
[2024-09-08] MEDS: MIDODRINE 10 MG TABLET PO ×5 (05:24→23:37)
[2024-09-08] MEDS: ACET PO ×2 (05:47→18:30)
[2024-09-08] MEDS: HYDRO PO ×2 (05:47→18:30)
[2024-09-08] MEDS: BUDESONIDE 0.5 MG/2 ML AMPUL.NEB INH ×2 (06:45→18:14)
[2024-09-08] MEDS: ASCORBIC ACID 500 MG TABLET PO ×2 (09:07→20:18)
[2024-09-08] MEDS: DEX/HYPRO/GLY ARTIFICAL TEARS 225 DROP/15 ML BTL BOTH EYES ×2 (09:07→20:18)
[2024-09-08] MEDS: FAMOTIDINE 20 MG TABLET PO ×2 (09:07→20:18)
[2024-09-08] MEDS: VITAMIN B COMPLEX PO (09:08)
[2024-09-08] MEDS: MULTIVITAMIN 1 TAB TABLET PO (09:08)
[2024-09-08] MEDS: SENNOSIDES 8.6 MG TABLET PO ×2 (09:08→20:19)
[2024-09-08] MEDS: ALPRAZolam 0.5 MG TABLET PO ×2 (11:30→20:20)
[2024-09-08] MEDS: guaiFENesin Liq 100 MG/5 ML LIQUID PO ×2 (11:30→20:20)
[2024-09-09] VITALS (12 sets, daily range): BP systolic 111–132; BP diastolic 65–68; PULSE 61–86; RESP 16–19; TEMP 36.2–36.5; O2SAT 97–100
[2024-09-09] MEDS: IPRATROPIUM/ALBUTEROL 3 ML AMPUL.NEB INH ×6 (02:20→22:29)
[2024-09-09] MEDS: ACETAMINOPHEN 325 MG TABLET 650 MG PO (04:54)
[2024-09-09] MEDS: guaiFENesin Liq 100 MG/5 ML LIQUID PO ×2 (04:55→18:30)
[2024-09-09] MEDS: BUDESONIDE 0.5 MG/2 ML AMPUL.NEB INH ×2 (06:05→19:21)
[2024-09-09] MEDS: AMIODARONE 200 MG TABLET PO (08:46)
[2024-09-09] MEDS: ASCORBIC ACID 500 MG TABLET PO ×2 (08:47→20:55)
[2024-09-09] MEDS: FAMOTIDINE 20 MG TABLET PO ×2 (08:48→20:56)
[2024-09-09] MEDS: MULTIVITAMIN 1 TAB TABLET PO (08:48)
[2024-09-09] MEDS: DEX/HYPRO/GLY ARTIFICAL TEARS 225 DROP/15 ML BTL BOTH EYES ×2 (08:48→20:56)
[2024-09-09] MEDS: VITAMIN B COMPLEX PO (08:48)
[2024-09-09] MEDS: SENNOSIDES 8.6 MG TABLET PO ×2 (08:48→20:56)
[2024-09-09] MEDS: ALPRAZolam 0.5 MG TABLET PO ×2 (09:00→20:00)
[2024-09-09] MEDS: MIDODRINE 10 MG TABLET PO ×2 (12:14→17:15)
[2024-09-09] MEDS: ACET PO (21:00)
[2024-09-09] MEDS: HYDRO PO (21:00)
[2024-09-10] VITALS (13 sets, daily range): BP systolic 95–124; BP diastolic 57–72; PULSE 60–89; RESP 16–20; TEMP 36.1–36.9; O2SAT 96–100
[2024-09-10] MEDS: MIDODRINE 10 MG TABLET PO ×3 (00:16→11:37)
[2024-09-10] MEDS: IPRATROPIUM/ALBUTEROL 3 ML AMPUL.NEB INH ×6 (02:25→22:38)
[2024-09-10] MEDS: guaiFENesin Liq 100 MG/5 ML LIQUID PO ×2 (04:00→21:15)
[2024-09-10] MEDS: ALPRAZolam 0.5 MG TABLET PO ×3 (05:00→20:30)
[2024-09-10] MEDS: BUDESONIDE 0.5 MG/2 ML AMPUL.NEB INH ×2 (06:10→18:54)
[2024-09-10] MEDS: AMIODARONE 200 MG TABLET PO (09:25)
[2024-09-10] MEDS: ASCORBIC ACID 500 MG TABLET PO ×2 (09:26→20:41)
[2024-09-10] MEDS: SENNOSIDES 8.6 MG TABLET PO ×2 (09:26→20:44)
[2024-09-10] MEDS: FAMOTIDINE 20 MG TABLET PO ×2 (09:26→20:44)
[2024-09-10] MEDS: VITAMIN B COMPLEX PO (09:26)
[2024-09-10] MEDS: MULTIVITAMIN 1 TAB TABLET PO (09:26)
[2024-09-10] MEDS: DEX/HYPRO/GLY ARTIFICAL TEARS 225 DROP/15 ML BTL BOTH EYES ×2 (09:26→20:41)
[2024-09-10] MEDS: ACETAMINOPHEN 325 MG TABLET 650 MG PO ×2 (11:36→20:30)
[2024-09-10] MEDS: ACET PO (15:23)
[2024-09-10] MEDS: HYDRO PO (15:23)
[2024-09-11] VITALS (12 sets, daily range): BP systolic 96–139; BP diastolic 60–75; PULSE 60–89; RESP 16–19; TEMP 36.1–36.5; O2SAT 96–100
[2024-09-11] MEDS: MIDODRINE 10 MG TABLET PO ×3 (01:11→11:59)
[2024-09-11] MEDS: HYDRO PO ×3 (02:00→23:30)
[2024-09-11] MEDS: ACET PO ×3 (02:00→23:30)
[2024-09-11] MEDS: IPRATROPIUM/ALBUTEROL 3 ML AMPUL.NEB INH ×6 (02:50→22:48)
[2024-09-11] MEDS: BUDESONIDE 0.5 MG/2 ML AMPUL.NEB INH ×2 (06:05→18:20)
[2024-09-11] MEDS: VITAMIN B COMPLEX PO (09:30)
[2024-09-11] MEDS: FAMOTIDINE 20 MG TABLET PO ×2 (09:30→20:06)
[2024-09-11] MEDS: DEX/HYPRO/GLY ARTIFICAL TEARS 225 DROP/15 ML BTL BOTH EYES ×2 (09:30→20:05)
[2024-09-11] MEDS: MULTIVITAMIN 1 TAB TABLET PO (09:30)
[2024-09-11] MEDS: ASCORBIC ACID 500 MG TABLET PO ×2 (09:30→20:05)
[2024-09-11] MEDS: SENNOSIDES 8.6 MG TABLET PO ×2 (09:30→20:06)
[2024-09-11] MEDS: AMIODARONE 200 MG TABLET PO (09:35)
[2024-09-11] MEDS: ACETAMINOPHEN 325 MG TABLET 650 MG PO (09:35)
--- NOTE | 2024-09-11 11:50 | PD.SAPROG ---
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 (2) Chronic respiratory failure with hypoxia and hypercapnia: Status: Chronic (3) Ventilator dependent: Status: Chronic (4) Congestive heart failure: Status: Chronic (5) Chronic obstructive pulmonary disease, unspecified: Status: Chronic (6) Atrial fibrillation: Status: Chronic (7) Tracheostomy in place: Status: Chronic (8) Chronic anemia: Status: Chronic SUBJECTIVE Fever:: none GI:: none Shortness of Breath:: unchanged GI:: nausea Pain:: none OBJECTIVE Most recent vital signs: Last Vital Signs Temp 97 F 09/12/24 06:00 Pulse 91 09/12/24 08:14 Resp 16 09/12/24 06:00 BP 95/63 09/12/24 08:14 Pulse Ox 99 09/12/24 06:00 O2 Del Method Mechanical Ventilation 09/12/24 06:00 FiO2 40 09/12/24 06:00 Neurological:: alert Speech:: nods head, mouths words and appropriate Answers questions:: yes Respiratory:: shallow breathing and rhonchi Cardiovascular: irregular Abdomen: soft Tracheostomy:: to ventilator Feeding per:: po ASSESSMENT & PLAN Assessment: stable. Tolerating ventilatory support. Not weanable because of generalized weakness. Tolerating feeding. Prognosis is very guarded. Patient aware. Tracheostomy revision done surgically. Psychotropics: Xanax 0.5 mgs bid has really done well to settle her anxiety. no side effects seen. She does not do well on lower titration of anxiety meds. No new issues. Had a bedside conversation on quality of life and end of life care at pt's request. Pt remains comfortable on current meds. 08-11-24 had a detailed conversation with pt's son about progressively worsening condition as expected in end stage COPD ventilator dependent and now more weak/inability to thrive. Code status was discussed and the extremely poor prognosis. 08-16-24 Pt's Hb was critical and hence ordered two units packed rbcs. Pt was in no distress. Post infusion levels are improved. General status quo maintained with expected worsening with limited prognosis. Comfort being achieved. Plan: Current treatment as well as ventilator settings reviewed and continued.
[2024-09-11] MEDS: ALPRAZolam 0.5 MG TABLET PO ×2 (13:16→20:30)
[2024-09-11] MEDS: guaiFENesin Liq 100 MG/5 ML LIQUID PO (14:25)
[2024-09-12] VITALS (13 sets, daily range): BP systolic 95–134; BP diastolic 58–71; PULSE 63–91; RESP 16–19; TEMP 36.1–36.4; O2SAT 98–99
[2024-09-12] MEDS: MIDODRINE 10 MG TABLET PO ×3 (00:20→12:25)
[2024-09-12] MEDS: IPRATROPIUM/ALBUTEROL 3 ML AMPUL.NEB INH ×7 (02:04→22:00)
[2024-09-12] MEDS: ALPRAZolam 0.5 MG TABLET PO ×2 (04:30→20:30)
[2024-09-12] MEDS: BUDESONIDE 0.5 MG/2 ML AMPUL.NEB INH ×2 (06:05→19:10)
[2024-09-12] MEDS: DEX/HYPRO/GLY ARTIFICAL TEARS 225 DROP/15 ML BTL BOTH EYES ×2 (08:14→20:35)
[2024-09-12] MEDS: ASCORBIC ACID 500 MG TABLET PO ×2 (08:14→20:34)
[2024-09-12] MEDS: FAMOTIDINE 20 MG TABLET PO ×2 (08:15→20:35)
[2024-09-12] MEDS: MULTIVITAMIN 1 TAB TABLET PO (08:15)
[2024-09-12] MEDS: SENNOSIDES 8.6 MG TABLET PO ×2 (08:15→20:35)
[2024-09-12] MEDS: VITAMIN B COMPLEX PO (08:15)
[2024-09-12] MEDS: HYDRO PO ×2 (10:31→19:00)
[2024-09-12] MEDS: ACET PO ×2 (10:31→19:00)
[2024-09-13] VITALS (14 sets, daily range): BP systolic 110–136; BP diastolic 56–77; PULSE 66–95; RESP 16–66; TEMP 36.2–36.9; O2SAT 97–100
[2024-09-13] MEDS: MIDODRINE 10 MG TABLET PO ×3 (00:01→11:53)
[2024-09-13] MEDS: IPRATROPIUM/ALBUTEROL 3 ML AMPUL.NEB INH ×5 (07:18→22:46)
[2024-09-13] MEDS: BUDESONIDE 0.5 MG/2 ML AMPUL.NEB INH ×2 (07:18→19:59)
[2024-09-13] MEDS: DEX/HYPRO/GLY ARTIFICAL TEARS 225 DROP/15 ML BTL BOTH EYES ×2 (09:24→21:22)
[2024-09-13] MEDS: SENNOSIDES 8.6 MG TABLET PO ×2 (09:24→21:22)
[2024-09-13] MEDS: ASCORBIC ACID 500 MG TABLET PO ×2 (09:24→21:25)
[2024-09-13] MEDS: VITAMIN B COMPLEX PO (09:24)
[2024-09-13] MEDS: MULTIVITAMIN 1 TAB TABLET PO (09:24)
[2024-09-13] MEDS: FAMOTIDINE 20 MG TABLET PO ×2 (09:24→21:22)
[2024-09-13] MEDS: AMIODARONE 200 MG TABLET PO (09:35)
[2024-09-13] MEDS: ALPRAZolam 0.5 MG TABLET PO ×2 (11:53→19:43)
[2024-09-13] MEDS: guaiFENesin Liq 100 MG/5 ML LIQUID PO ×2 (13:21→21:21)
[2024-09-13] MEDS: ACETAMINOPHEN 325 MG TABLET 650 MG PO (15:06)
--- NOTE | 2024-09-13 15:47 | PC.SS ---
This SSD asked resident if she would be voting for 2023 Presidential election, she nodded her head no and said no This SSD asked her once again with resident saying no she would not need ballot to vote.
[2024-09-13] MEDS: HYDRO PO (20:30)
[2024-09-13] MEDS: ACET PO (20:30)
[2024-09-14] VITALS (10 sets, daily range): BP systolic 99–145; BP diastolic 56–70; PULSE 69–90; RESP 16–25; TEMP 36.2–36.8; O2SAT 97–99
[2024-09-14] MEDS: IPRATROPIUM/ALBUTEROL 3 ML AMPUL.NEB INH ×5 (02:01→22:12)
[2024-09-14] MEDS: HYDRO PO ×2 (05:16→17:05)
[2024-09-14] MEDS: ACET PO ×2 (05:16→17:05)
[2024-09-14] MEDS: MIDODRINE 10 MG TABLET PO ×2 (05:16→12:30)
[2024-09-14] MEDS: BUDESONIDE 0.5 MG/2 ML AMPUL.NEB INH ×2 (06:10→18:00)
[2024-09-14] MEDS: AMIODARONE 200 MG TABLET PO (09:45)
[2024-09-14] MEDS: VITAMIN B COMPLEX PO (09:46)
[2024-09-14] MEDS: FAMOTIDINE 20 MG TABLET PO ×2 (09:46→20:39)
[2024-09-14] MEDS: ASCORBIC ACID 500 MG TABLET PO ×2 (09:46→20:39)
[2024-09-14] MEDS: SENNOSIDES 8.6 MG TABLET PO ×2 (09:46→20:39)
[2024-09-14] MEDS: MULTIVITAMIN 1 TAB TABLET PO (09:46)
[2024-09-14] MEDS: guaiFENesin Liq 100 MG/5 ML LIQUID PO ×2 (09:46→22:44)
[2024-09-14] MEDS: DEX/HYPRO/GLY ARTIFICAL TEARS 225 DROP/15 ML BTL BOTH EYES ×2 (09:46→20:39)
[2024-09-14] MEDS: ACETAMINOPHEN 325 MG TABLET 650 MG PO (10:49)
[2024-09-14] MEDS: ALPRAZolam 0.5 MG TABLET PO ×2 (15:25→23:40)
[2024-09-15] VITALS (12 sets, daily range): BP systolic 95–131; BP diastolic 65–69; PULSE 71–85; RESP 16–18; TEMP 36.2–36.6; O2SAT 96–99
[2024-09-15] MEDS: IPRATROPIUM/ALBUTEROL 3 ML AMPUL.NEB INH ×6 (02:10→22:12)
[2024-09-15] MEDS: ACET PO ×2 (04:38→16:30)
[2024-09-15] MEDS: HYDRO PO ×2 (04:38→16:30)
[2024-09-15] MEDS: MIDODRINE 10 MG TABLET PO ×3 (05:41→12:00)
[2024-09-15] MEDS: BUDESONIDE 0.5 MG/2 ML AMPUL.NEB INH ×2 (07:10→18:59)
[2024-09-15] MEDS: AMIODARONE 200 MG TABLET PO (09:02)
[2024-09-15] MEDS: DEX/HYPRO/GLY ARTIFICAL TEARS 225 DROP/15 ML BTL BOTH EYES ×2 (09:03→20:16)
[2024-09-15] MEDS: ASCORBIC ACID 500 MG TABLET PO ×2 (09:03→20:15)
[2024-09-15] MEDS: SENNOSIDES 8.6 MG TABLET PO ×2 (09:04→20:16)
[2024-09-15] MEDS: VITAMIN B COMPLEX PO (09:04)
[2024-09-15] MEDS: MULTIVITAMIN 1 TAB TABLET PO (09:04)
[2024-09-15] MEDS: FAMOTIDINE 20 MG TABLET PO ×2 (09:04→20:16)
[2024-09-15] MEDS: ALPRAZolam 0.5 MG TABLET PO ×2 (11:15→20:18)
[2024-09-15] MEDS: guaiFENesin Liq 100 MG/5 ML LIQUID PO ×2 (11:15→20:17)
[2024-09-15] MEDS: MAG HYDROX/ALUMINUM HYD/SIMETH 355 ML BTL 30 ML PO (20:27)
--- NOTE | 2024-09-15 22:37 | PD.SAPROG ---
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 (2) Chronic respiratory failure with hypoxia and hypercapnia: Status: Chronic (3) Ventilator dependent: Status: Chronic (4) Congestive heart failure: Status: Chronic (5) Chronic obstructive pulmonary disease, unspecified: Status: Chronic (6) Atrial fibrillation: Status: Chronic (7) Tracheostomy in place: Status: Chronic (8) Chronic anemia: Status: Chronic SUBJECTIVE Fever:: none GI:: none Shortness of Breath:: unchanged GI:: nausea Pain:: none OBJECTIVE Most recent vital signs: Last Vital Signs Temp 97.1 F 09/15/24 17:22 Pulse 80 09/15/24 17:22 Resp 18 09/15/24 17:22 BP 131/69 H 09/15/24 17:22 Pulse Ox 99 09/15/24 14:00 O2 Del Method Mechanical Ventilation 09/15/24 11:34 FiO2 40 09/15/24 14:00 Neurological:: alert Speech:: nods head, mouths words and appropriate Answers questions:: yes Respiratory:: shallow breathing and rhonchi Cardiovascular: irregular Abdomen: soft Tracheostomy:: to ventilator Feeding per:: po ASSESSMENT & PLAN Assessment: stable. Tolerating ventilatory support. Not weanable because of generalized weakness. Tolerating feeding. Prognosis is very guarded. Patient aware. Tracheostomy revision done surgically. Psychotropics: Xanax 0.5 mgs bid has really done well to settle her anxiety. no side effects seen. She does not do well on lower titration of anxiety meds. No new issues. Had a bedside conversation on quality of life and end of life care at pt's request. Pt remains comfortable on current meds. 08-11-24 had a detailed conversation with pt's son about progressively worsening condition as expected in end stage COPD ventilator dependent and now more weak/inability to thrive. Code status was discussed and the extremely poor prognosis. 08-16-24 Pt's Hb was critical and hence ordered two units packed rbcs. Pt was in no distress. Post infusion levels are improved. General status quo maintained with expected worsening with limited prognosis. Comfort being achieved. Plan: Current treatment as well as ventilator settings reviewed and continued.
[2024-09-16] VITALS (12 sets, daily range): BP systolic 95–130; BP diastolic 67–78; PULSE 67–102; RESP 16–18; TEMP 36.4–36.6; O2SAT 98–100
[2024-09-16] MEDS: HYDRO PO ×2 (01:14→14:45)
[2024-09-16] MEDS: ACET PO ×2 (01:14→14:45)
[2024-09-16] MEDS: ALPRAZolam 0.5 MG TABLET PO ×3 (02:25→22:35)
[2024-09-16] MEDS: IPRATROPIUM/ALBUTEROL 3 ML AMPUL.NEB INH ×6 (02:48→22:19)
[2024-09-16] MEDS: MIDODRINE 10 MG TABLET PO ×2 (05:27→12:30)
[2024-09-16] MEDS: BUDESONIDE 0.5 MG/2 ML AMPUL.NEB INH ×2 (06:22→19:06)
[2024-09-16] MEDS: VITAMIN B COMPLEX PO (09:06)
[2024-09-16] MEDS: ASCORBIC ACID 500 MG TABLET PO ×2 (09:06→20:44)
[2024-09-16] MEDS: DEX/HYPRO/GLY ARTIFICAL TEARS 225 DROP/15 ML BTL BOTH EYES ×2 (09:06→20:44)
[2024-09-16] MEDS: MULTIVITAMIN 1 TAB TABLET PO (09:06)
[2024-09-16] MEDS: SENNOSIDES 8.6 MG TABLET PO ×2 (09:06→20:44)
[2024-09-16] MEDS: FAMOTIDINE 20 MG TABLET PO ×2 (09:06→20:44)
[2024-09-16] MEDS: ACETAMINOPHEN 325 MG TABLET 650 MG PO ×2 (10:39→20:53)
[2024-09-16] MEDS: guaiFENesin Liq 100 MG/5 ML LIQUID PO (11:33)
[2024-09-16] MEDS: BISACODYL 10 MG SUPP.RECT PR (15:40)
[2024-09-17] VITALS (11 sets, daily range): BP systolic 91–104; BP diastolic 58–62; PULSE 66–86; RESP 16–28; TEMP 36.2–36.5; O2SAT 97–100
[2024-09-17] MEDS: IPRATROPIUM/ALBUTEROL 3 ML AMPUL.NEB INH ×6 (02:11→22:23)
[2024-09-17] MEDS: guaiFENesin Liq 100 MG/5 ML LIQUID PO ×3 (03:20→20:00)
[2024-09-17] MEDS: MIDODRINE 10 MG TABLET PO ×3 (05:59→11:17)
[2024-09-17] MEDS: ALPRAZolam 0.5 MG TABLET PO ×2 (08:49→20:00)
[2024-09-17] MEDS: ASCORBIC ACID 500 MG TABLET PO ×2 (08:54→20:08)
[2024-09-17] MEDS: DEX/HYPRO/GLY ARTIFICAL TEARS 225 DROP/15 ML BTL BOTH EYES ×2 (08:55→20:09)
[2024-09-17] MEDS: SENNOSIDES 8.6 MG TABLET PO ×2 (08:55→21:27)
[2024-09-17] MEDS: FAMOTIDINE 20 MG TABLET PO ×2 (08:55→20:09)
[2024-09-17] MEDS: MULTIVITAMIN 1 TAB TABLET PO (08:55)
[2024-09-17] MEDS: VITAMIN B COMPLEX PO (08:56)
--- NOTE | 2024-09-17 16:18 | PC.SS ---
Room visit: Resident is laying in bed with head of the bed elevated with call light properly placed with no signs of distress. Resident remains on ventilator with trach in place and GT for medication and nutrition. Resident ia alert and oriented able to make needs known. She will remain in current care as she has no changes in care or condition. This SSD will continue to make contact with resident and monitor for changes in mood and behavior.
[2024-09-17] MEDS: HYDRO PO ×2 (16:21→23:50)
[2024-09-17] MEDS: ACET PO ×2 (16:21→23:50)
[2024-09-17] MEDS: BUDESONIDE 0.5 MG/2 ML AMPUL.NEB INH (18:45)
[2024-09-18] VITALS (12 sets, daily range): BP systolic 93–141; BP diastolic 59–66; PULSE 69–94; RESP 16–26; TEMP 36.4–37.4; O2SAT 97–100
[2024-09-18] MEDS: MIDODRINE 10 MG TABLET PO ×3 (00:30→17:07)
[2024-09-18] MEDS: IPRATROPIUM/ALBUTEROL 3 ML AMPUL.NEB INH ×6 (02:07→22:25)
[2024-09-18] MEDS: ACETAMINOPHEN 325 MG TABLET 650 MG PO ×2 (02:15→16:25)
[2024-09-18] MEDS: ALPRAZolam 0.5 MG TABLET PO ×3 (04:00→20:13)
[2024-09-18] MEDS: DEX/HYPRO/GLY ARTIFICAL TEARS 225 DROP/15 ML BTL BOTH EYES ×2 (08:49→21:07)
[2024-09-18] MEDS: ASCORBIC ACID 500 MG TABLET PO ×2 (08:49→21:07)
[2024-09-18] MEDS: AMIODARONE 200 MG TABLET PO (08:49)
[2024-09-18] MEDS: FAMOTIDINE 20 MG TABLET PO ×2 (08:50→21:07)
[2024-09-18] MEDS: SENNOSIDES 8.6 MG TABLET PO ×2 (08:50→21:07)
[2024-09-18] MEDS: MULTIVITAMIN 1 TAB TABLET PO (08:50)
[2024-09-18] MEDS: VITAMIN B COMPLEX PO (08:50)
[2024-09-18] MEDS: HYDRO PO ×2 (10:51→21:54)
[2024-09-18] MEDS: ACET PO ×2 (10:51→21:54)
[2024-09-18] MEDS: guaiFENesin Liq 100 MG/5 ML LIQUID PO (19:16)
[2024-09-18] MEDS: BUDESONIDE 0.5 MG/2 ML AMPUL.NEB INH (19:47)
[2024-09-19] VITALS (12 sets, daily range): BP systolic 87–124; BP diastolic 53–71; PULSE 70–94; RESP 16–20; TEMP 36.5–36.9; O2SAT 98–100
[2024-09-19] MEDS: ACETAMINOPHEN 325 MG TABLET 650 MG PO (00:30)
[2024-09-19] MEDS: guaiFENesin Liq 100 MG/5 ML LIQUID PO ×2 (03:25→18:01)
[2024-09-19] MEDS: IPRATROPIUM/ALBUTEROL 3 ML AMPUL.NEB INH ×6 (03:51→22:30)
[2024-09-19] MEDS: MIDODRINE 10 MG TABLET PO ×3 (05:07→17:36)
[2024-09-19] MEDS: BUDESONIDE 0.5 MG/2 ML AMPUL.NEB INH ×2 (07:10→17:48)
[2024-09-19] MEDS: AMIODARONE 200 MG TABLET PO (09:36)
[2024-09-19] MEDS: FAMOTIDINE 20 MG TABLET PO ×2 (09:37→21:04)
[2024-09-19] MEDS: DEX/HYPRO/GLY ARTIFICAL TEARS 225 DROP/15 ML BTL BOTH EYES ×2 (09:37→21:04)
[2024-09-19] MEDS: MULTIVITAMIN 1 TAB TABLET PO (09:37)
[2024-09-19] MEDS: ASCORBIC ACID 500 MG TABLET PO ×2 (09:37→21:04)
[2024-09-19] MEDS: SENNOSIDES 8.6 MG TABLET PO ×2 (09:37→21:04)
[2024-09-19] MEDS: VITAMIN B COMPLEX PO (09:38)
[2024-09-19] MEDS: ALPRAZolam 0.5 MG TABLET PO ×2 (10:00→20:40)
--- NOTE | 2024-09-19 16:28 | PD.SAPROG ---
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 (2) Chronic respiratory failure with hypoxia and hypercapnia: Status: Chronic (3) Ventilator dependent: Status: Chronic (4) Congestive heart failure: Status: Chronic (5) Chronic obstructive pulmonary disease, unspecified: Status: Chronic (6) Atrial fibrillation: Status: Chronic (7) Tracheostomy in place: Status: Chronic (8) Chronic anemia: Status: Chronic SUBJECTIVE Fever:: none GI:: none Shortness of Breath:: unchanged GI:: nausea Pain:: none OBJECTIVE Most recent vital signs: Last Vital Signs Temp 98.4 F 09/19/24 12:00 Pulse 75 09/19/24 14:00 Resp 18 09/19/24 14:00 BP 103/65 09/19/24 12:00 Pulse Ox 98 09/19/24 14:00 O2 Del Method Mechanical Ventilation 09/19/24 06:00 FiO2 40 09/19/24 14:00 Neurological:: alert Speech:: nods head, mouths words and appropriate Answers questions:: yes Respiratory:: shallow breathing and rhonchi Cardiovascular: irregular Abdomen: soft Tracheostomy:: to ventilator Feeding per:: po ASSESSMENT & PLAN Assessment: stable. Tolerating ventilatory support. Not weanable because of generalized weakness. Tolerating feeding. Prognosis is very guarded. Patient aware. Tracheostomy revision done surgically. Psychotropics: Xanax 0.5 mgs bid has really done well to settle her anxiety. no side effects seen. She does not do well on lower titration of anxiety meds. No new issues. Had a bedside conversation on quality of life and end of life care at pt's request. Pt remains comfortable on current meds. 08-11-24 had a detailed conversation with pt's son about progressively worsening condition as expected in end stage COPD ventilator dependent and now more weak/inability to thrive. Code status was discussed and the extremely poor prognosis. 08-16-24 Pt's Hb was critical and hence ordered two units packed rbcs. Pt was in no distress. Post infusion levels are improved. No new complaints General status quo maintained with expected worsening with limited prognosis. Comfort being achieved. Plan: Current treatment as well as ventilator settings reviewed and continued.
[2024-09-20] VITALS (11 sets, daily range): BP systolic 92–120; BP diastolic 60–78; PULSE 68–94; RESP 16–18; TEMP 36.4–36.7; O2SAT 98–100
[2024-09-20] MEDS: guaiFENesin Liq 100 MG/5 ML LIQUID PO ×3 (00:26→22:30)
[2024-09-20] MEDS: MIDODRINE 10 MG TABLET PO ×3 (00:26→18:09)
[2024-09-20] MEDS: ACETAMINOPHEN 325 MG TABLET 650 MG PO ×2 (00:52→17:00)
[2024-09-20] MEDS: IPRATROPIUM/ALBUTEROL 3 ML AMPUL.NEB INH ×6 (03:03→22:54)
[2024-09-20] MEDS: BUDESONIDE 0.5 MG/2 ML AMPUL.NEB INH ×2 (06:39→18:39)
[2024-09-20] MEDS: ASCORBIC ACID 500 MG TABLET PO ×2 (09:03→20:05)
[2024-09-20] MEDS: VITAMIN B COMPLEX PO (09:04)
[2024-09-20] MEDS: FAMOTIDINE 20 MG TABLET PO ×2 (09:04→20:06)
[2024-09-20] MEDS: SENNOSIDES 8.6 MG TABLET PO ×2 (09:04→20:06)
[2024-09-20] MEDS: MULTIVITAMIN 1 TAB TABLET PO (09:04)
[2024-09-20] MEDS: DEX/HYPRO/GLY ARTIFICAL TEARS 225 DROP/15 ML BTL BOTH EYES ×2 (09:04→20:06)
[2024-09-20] MEDS: ALPRAZolam 0.5 MG TABLET PO ×2 (11:53→20:00)
--- NOTE | 2024-09-20 15:34 | PC.SS ---
Resident seen by dairy nutritionist/Dr. Jaeger for routine toe nail trim, no new orders or recommendation to continue current care.
--- NOTE | 2024-09-20 16:22 | PC.SS ---
Resident seen by Regulatory Assistant Dr. Hopson for annual optometry consultation. Resident tolerated treatment well, no new orders or recommendations, resident will continue current care.
[2024-09-20] MEDS: ACET PO (21:00)
[2024-09-20] MEDS: HYDRO PO (21:00)
[2024-09-21] VITALS (13 sets, daily range): BP systolic 95–148; BP diastolic 59–88; PULSE 19–93; RESP 16–81; TEMP 36.1–36.8; O2SAT 96–100
[2024-09-21] MEDS: MIDODRINE 10 MG TABLET PO ×2 (00:19→05:19)
[2024-09-21] MEDS: IPRATROPIUM/ALBUTEROL 3 ML AMPUL.NEB INH ×6 (02:43→22:07)
[2024-09-21] MEDS: BUDESONIDE 0.5 MG/2 ML AMPUL.NEB INH (06:05)
[2024-09-21] MEDS: ALPRAZolam 0.5 MG TABLET PO ×3 (07:40→23:50)
[2024-09-21] MEDS: guaiFENesin Liq 100 MG/5 ML LIQUID PO ×2 (07:41→19:15)
[2024-09-21] MEDS: AMIODARONE 200 MG TABLET PO (09:38)
[2024-09-21] MEDS: MULTIVITAMIN 1 TAB TABLET PO (09:39)
[2024-09-21] MEDS: FAMOTIDINE 20 MG TABLET PO ×2 (09:39→20:07)
[2024-09-21] MEDS: VITAMIN B COMPLEX PO (09:39)
[2024-09-21] MEDS: SENNOSIDES 8.6 MG TABLET PO ×2 (09:39→20:07)
[2024-09-21] MEDS: DEX/HYPRO/GLY ARTIFICAL TEARS 225 DROP/15 ML BTL BOTH EYES ×2 (09:39→20:07)
[2024-09-21] MEDS: ASCORBIC ACID 500 MG TABLET PO ×2 (09:39→20:05)
[2024-09-21] MEDS: ACET PO (13:13)
[2024-09-21] MEDS: HYDRO PO (13:13)
[2024-09-21] MEDS: ACETAMINOPHEN 325 MG TABLET 650 MG PO (19:15)
[2024-09-22] VITALS (10 sets, daily range): BP systolic 100–134; BP diastolic 62–74; PULSE 67–97; RESP 16–20; TEMP 36.1–36.6; O2SAT 97–100
[2024-09-22] MEDS: MIDODRINE 10 MG TABLET PO ×3 (00:34→12:05)
[2024-09-22] MEDS: IPRATROPIUM/ALBUTEROL 3 ML AMPUL.NEB INH ×5 (02:20→18:31)
[2024-09-22] MEDS: guaiFENesin Liq 100 MG/5 ML LIQUID PO ×2 (04:00→19:00)
[2024-09-22] MEDS: ACETAMINOPHEN 325 MG TABLET 650 MG PO ×2 (08:00→21:00)
[2024-09-22] MEDS: AMIODARONE 200 MG TABLET PO (09:08)
[2024-09-22] MEDS: ASCORBIC ACID 500 MG TABLET PO ×2 (09:09→20:14)
[2024-09-22] MEDS: MULTIVITAMIN 1 TAB TABLET PO (09:09)
[2024-09-22] MEDS: FAMOTIDINE 20 MG TABLET PO ×2 (09:09→20:14)
[2024-09-22] MEDS: DEX/HYPRO/GLY ARTIFICAL TEARS 225 DROP/15 ML BTL BOTH EYES ×2 (09:09→20:14)
[2024-09-22] MEDS: VITAMIN B COMPLEX PO (09:10)
[2024-09-22] MEDS: SENNOSIDES 8.6 MG TABLET PO ×2 (09:10→20:14)
[2024-09-22] MEDS: ALPRAZolam 0.5 MG TABLET PO ×2 (09:30→20:00)
[2024-09-22] MEDS: ACET PO (11:00)
[2024-09-22] MEDS: HYDRO PO (11:00)
[2024-09-23] VITALS (11 sets, daily range): BP systolic 92–145; BP diastolic 48–87; PULSE 76–92; RESP 16–18; TEMP 36.3–36.9; O2SAT 98–100
[2024-09-23] MEDS: MIDODRINE 10 MG TABLET PO ×3 (00:02→12:30)
[2024-09-23] MEDS: guaiFENesin Liq 100 MG/5 ML LIQUID PO ×3 (02:00→20:10)
[2024-09-23] MEDS: ACETAMINOPHEN 325 MG TABLET 650 MG PO ×3 (04:00→23:12)
[2024-09-23] MEDS: IPRATROPIUM/ALBUTEROL 3 ML AMPUL.NEB INH ×5 (06:17→22:05)
[2024-09-23] MEDS: ALPRAZolam 0.5 MG TABLET PO ×2 (07:04→15:45)
--- NOTE | 2024-09-23 08:00 | PC.NURSE ---
This morning at around 0723 resident was found unresponsive by Dianelys ZAPATA. Immediate response by floor nurses and code team. Resident was manually bagged. Vital signs were assessed at that time 134/85, HR 125, BS 141. Resident recovered conciousness within 3 minutes, appeared pale and diaphoretic BS141. Code team departed then. Notified Dr. Salazar and received new order for ABGs the notified MD with results.
[2024-09-23 09:25] LABS: Base Excess 18 (-3-3); HCO3 45 mEq/L (20-26); Inspired Oxygen, FIO2 40 %; O2 Saturation 87 % (91-98); PCO2 68 mmHg (32.0-48.0); pH, Arterial 7.43 (7.35-7.45)
[2024-09-23 09:33] LABS: Allen Test Performed/OK; PO2 50 mmHg (83-108); Puncture Site Site Not Noted
[2024-09-23] MEDS: AMIODARONE 200 MG TABLET PO (09:59)
[2024-09-23] MEDS: MULTIVITAMIN 1 TAB TABLET PO (10:00)
[2024-09-23] MEDS: DEX/HYPRO/GLY ARTIFICAL TEARS 225 DROP/15 ML BTL BOTH EYES ×2 (10:00→21:16)
[2024-09-23] MEDS: ASCORBIC ACID 500 MG TABLET PO ×2 (10:00→21:16)
[2024-09-23] MEDS: FAMOTIDINE 20 MG TABLET PO ×2 (10:00→21:16)
[2024-09-23] MEDS: VITAMIN B COMPLEX PO (10:00)
[2024-09-23] MEDS: SENNOSIDES 8.6 MG TABLET PO ×2 (10:00→21:17)
[2024-09-23] MEDS: ACET PO (13:47)
[2024-09-23] MEDS: HYDRO PO (13:47)
[2024-09-23] MEDS: CARBAMIDE PEROXIDE OTIC SOL 15 ML BTL 5 DROP BOTH EARS (14:01)
--- NOTE | 2024-09-23 16:10 | PC.NURSE ---
At 0700 when this nurse was going to obtain vital signs, resident requested Respiratory therapist to administer her TX stating I'm short of breath when nurse went to find RT she returned to resident's room to inform her she just received her TX and nebulizer was still attached. Resident was informed RT will be in shortly to disconnect/ remove nebulizer. Resident then requested Xanax PRN . Nurse went to med room to get medication. At 0705 when nurse entered room she found resident diaphoretic, pale and nonresponsive. Nurse shook and called out to patient but still no response. RT was informed and enter room immediately and attempted sternal rub but no change resident remained nonresponsive. RT then started to Ambu bag resident with 100% O2. Charge nurse informed and came into residents room to assess. Code Blue activated at 0712 ER charge nurse ( Evette) DR. Steward and code team arrive to assist. Pt had a pulse of 121 BP 134/85 O2 sats 100% and Blood glucose 177 md/DL. At 0714 pt started to cough , opened her eyes and appeared suprised to see so much staff in her room. She was informed of current event and reoriented but was unable to remember / recall what happened. RT reconnected resident back to ventilator with same settings. AC 16 TV 525 and FI02 40 %. Vital signs 86, 145/87 O2 saturation 100%. Xanax which was pulled earlier from med room was given at 0725 PRN. At 0930 RT bernardo blood for ABG and sent specimen to lab. Results received PCO2 H 68 and PO2 L 50 MD aware and ordered to change ventilator setting to AC 14, TV 525 and FIO2 40%. Will continue to monitor pt for any further changes. Call light within reach.
--- NOTE | 2024-09-23 17:22 | PC.NURSE ---
Summary for event ocurred this this morning. Dr. Salazar was informed of resident's sudden change in condition. orders were carried reviewed ABG result with MD. Resident family made aware. Resident vent changes were made by Zita KANG as per MD order. Resident has been stable since episode.
--- NOTE | 2024-09-23 17:43 | PD.SAPROG ---
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 (2) Chronic respiratory failure with hypoxia and hypercapnia: Status: Chronic (3) Ventilator dependent: Status: Chronic (4) Congestive heart failure: Status: Chronic (5) Chronic obstructive pulmonary disease, unspecified: Status: Chronic (6) Atrial fibrillation: Status: Chronic (7) Tracheostomy in place: Status: Chronic (8) Chronic anemia: Status: Chronic SUBJECTIVE Fever:: none GI:: none Shortness of Breath:: unchanged GI:: nausea Pain:: none OBJECTIVE Most recent vital signs: Last Vital Signs Temp 98.4 F 09/23/24 17:35 Pulse 84 09/23/24 17:35 Resp 16 09/23/24 17:35 BP 145/72 H 09/23/24 17:35 Pulse Ox 100 09/23/24 17:35 O2 Del Method Mechanical Ventilation 09/23/24 17:35 FiO2 40 09/23/24 17:35 Neurological:: alert Speech:: nods head, mouths words and appropriate Answers questions:: yes Respiratory:: shallow breathing and rhonchi Cardiovascular: irregular Abdomen: soft Tracheostomy:: to ventilator Feeding per:: po ASSESSMENT & PLAN Assessment: stable. Tolerating ventilatory support. Not weanable because of generalized weakness. Tolerating feeding. Prognosis is very guarded. Patient aware. Tracheostomy revision done surgically. Psychotropics: Xanax 0.5 mgs bid has really done well to settle her anxiety. no side effects seen. She does not do well on lower titration of anxiety meds. No new issues. Had a bedside conversation on quality of life and end of life care at pt's request. Pt remains comfortable on current meds. 08-11-24 had a detailed conversation with pt's son about progressively worsening condition as expected in end stage COPD ventilator dependent and now more weak/inability to thrive. Code status was discussed and the extremely poor prognosis. 08-16-24 Pt's Hb was critical and hence ordered two units packed rbcs. Pt was in no distress. Post infusion levels are improved. No new complaints 09-23-24: She had an episode of being less responsive today but recovered quickly and blood gases checked stat which were normal ph 7.43, but PaO2 was low at 50mm Hg and saturations were good at 97%. General status quo maintained with expected worsening with limited prognosis. Comfort being achieved. Plan: Current treatment as well as ventilator settings reviewed and continued.
[2024-09-24] VITALS (11 sets, daily range): BP systolic 99–142; BP diastolic 65–86; PULSE 71–99; RESP 14–18; TEMP 36.1–36.7; O2SAT 96–99
[2024-09-24] MEDS: MIDODRINE 10 MG TABLET PO ×5 (00:59→23:20)
[2024-09-24] MEDS: IPRATROPIUM/ALBUTEROL 3 ML AMPUL.NEB INH ×6 (02:05→22:45)
[2024-09-24] MEDS: ACET PO (04:15)
[2024-09-24] MEDS: HYDRO PO (04:15)
[2024-09-24] MEDS: ALPRAZolam 0.5 MG TABLET PO ×2 (07:09→19:35)
[2024-09-24] MEDS: AMIODARONE 200 MG TABLET PO (09:16)
[2024-09-24] MEDS: MULTIVITAMIN 1 TAB TABLET PO (09:17)
[2024-09-24] MEDS: DEX/HYPRO/GLY ARTIFICAL TEARS 225 DROP/15 ML BTL BOTH EYES ×2 (09:17→20:03)
[2024-09-24] MEDS: FAMOTIDINE 20 MG TABLET PO ×2 (09:17→20:04)
[2024-09-24] MEDS: ASCORBIC ACID 500 MG TABLET PO ×2 (09:17→20:04)
[2024-09-24] MEDS: SENNOSIDES 8.6 MG TABLET PO ×2 (09:18→20:04)
[2024-09-24] MEDS: VITAMIN B COMPLEX PO (09:19)
[2024-09-24] MEDS: guaiFENesin Liq 100 MG/5 ML LIQUID PO ×2 (09:55→21:40)
[2024-09-24] MEDS: ACETAMINOPHEN 325 MG TABLET 650 MG PO (11:55)
[2024-09-24] MEDS: BUDESONIDE 0.5 MG/2 ML AMPUL.NEB INH (18:00)
[2024-09-25] VITALS (10 sets, daily range): BP systolic 92–120; BP diastolic 62–65; PULSE 73–92; RESP 14–20; TEMP 36.2–36.9; O2SAT 96–100
[2024-09-25] MEDS: ACETAMINOPHEN 325 MG TABLET 650 MG PO ×2 (02:14→08:56)
[2024-09-25] MEDS: IPRATROPIUM/ALBUTEROL 3 ML AMPUL.NEB INH ×6 (02:50→22:30)
[2024-09-25] MEDS: MIDODRINE 10 MG TABLET PO ×3 (05:03→17:35)
[2024-09-25] MEDS: ALPRAZolam 0.5 MG TABLET PO ×2 (05:03→14:20)
[2024-09-25] MEDS: guaiFENesin Liq 100 MG/5 ML LIQUID PO ×3 (05:40→20:30)
[2024-09-25] MEDS: AMIODARONE 200 MG TABLET PO (08:53)
[2024-09-25] MEDS: DEX/HYPRO/GLY ARTIFICAL TEARS 225 DROP/15 ML BTL BOTH EYES ×2 (08:54→20:48)
[2024-09-25] MEDS: MULTIVITAMIN 1 TAB TABLET PO (08:54)
[2024-09-25] MEDS: FAMOTIDINE 20 MG TABLET PO ×2 (08:54→20:49)
[2024-09-25] MEDS: ASCORBIC ACID 500 MG TABLET PO ×2 (08:54→20:48)
[2024-09-25] MEDS: SENNOSIDES 8.6 MG TABLET PO ×2 (08:55→20:50)
[2024-09-25] MEDS: VITAMIN B COMPLEX PO (08:55)
[2024-09-25] MEDS: ACET PO ×2 (13:53→22:51)
[2024-09-25] MEDS: HYDRO PO ×2 (13:53→22:51)
[2024-09-25] MEDS: BUDESONIDE 0.5 MG/2 ML AMPUL.NEB INH (18:00)
[2024-09-26] VITALS (10 sets, daily range): BP systolic 99–109; BP diastolic 62–68; PULSE 60–82; RESP 14–22; TEMP 36.1–36.4; O2SAT 97–100
[2024-09-26] MEDS: MIDODRINE 10 MG TABLET PO ×3 (00:13→18:00)
[2024-09-26] MEDS: IPRATROPIUM/ALBUTEROL 3 ML AMPUL.NEB INH ×6 (02:05→22:10)
[2024-09-26] MEDS: BUDESONIDE 0.5 MG/2 ML AMPUL.NEB INH ×2 (06:00→18:08)
[2024-09-26] MEDS: MULTIVITAMIN 1 TAB TABLET PO (10:00)
[2024-09-26] MEDS: ASCORBIC ACID 500 MG TABLET PO ×2 (10:00→20:46)
[2024-09-26] MEDS: AMIODARONE 200 MG TABLET PO (10:00)
[2024-09-26] MEDS: FAMOTIDINE 20 MG TABLET PO ×2 (10:00→20:46)
[2024-09-26] MEDS: VITAMIN B COMPLEX PO (10:00)
[2024-09-26] MEDS: DEX/HYPRO/GLY ARTIFICAL TEARS 225 DROP/15 ML BTL BOTH EYES ×2 (10:00→20:46)
[2024-09-26] MEDS: SENNOSIDES 8.6 MG TABLET PO ×2 (10:00→20:46)
[2024-09-26] MEDS: ALPRAZolam 0.5 MG TABLET PO (13:30)
[2024-09-26] MEDS: guaiFENesin Liq 100 MG/5 ML LIQUID PO ×2 (14:10→20:01)
[2024-09-26] MEDS: ACET PO (20:46)
[2024-09-26] MEDS: HYDRO PO (20:46)
[2024-09-27] VITALS (12 sets, daily range): BP systolic 92–143; BP diastolic 56–70; PULSE 53–78; RESP 14–16; TEMP 36.1–36.4; O2SAT 99–100
[2024-09-27] MEDS: ONDANSETRON HCL 4 MG TABLET PO (02:37)
[2024-09-27] MEDS: ALPRAZolam 0.5 MG TABLET PO ×3 (02:48→20:00)
[2024-09-27] MEDS: MIDODRINE 10 MG TABLET PO ×2 (05:49→18:03)
[2024-09-27] MEDS: BUDESONIDE 0.5 MG/2 ML AMPUL.NEB INH ×2 (06:00→18:52)
[2024-09-27] MEDS: IPRATROPIUM/ALBUTEROL 3 ML AMPUL.NEB INH ×5 (06:00→22:01)
[2024-09-27] MEDS: AMIODARONE 200 MG TABLET PO (09:12)
[2024-09-27] MEDS: VITAMIN B COMPLEX PO (09:13)
[2024-09-27] MEDS: ASCORBIC ACID 500 MG TABLET PO ×2 (09:13→20:38)
[2024-09-27] MEDS: FAMOTIDINE 20 MG TABLET PO ×2 (09:13→20:38)
[2024-09-27] MEDS: MULTIVITAMIN 1 TAB TABLET PO (09:13)
[2024-09-27] MEDS: DEX/HYPRO/GLY ARTIFICAL TEARS 225 DROP/15 ML BTL BOTH EYES ×2 (09:13→20:38)
[2024-09-27] MEDS: SENNOSIDES 8.6 MG TABLET PO ×2 (09:13→20:39)
[2024-09-27] MEDS: guaiFENesin Liq 100 MG/5 ML LIQUID PO ×2 (11:00→20:00)
[2024-09-27] MEDS: HYDRO PO (11:00)
[2024-09-27] MEDS: ACET PO (11:00)
[2024-09-27] MEDS: ACETAMINOPHEN 325 MG TABLET 650 MG PO (20:30)
--- NOTE | 2024-09-27 22:10 | PD.SAPROG ---
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 (2) Chronic respiratory failure with hypoxia and hypercapnia: Status: Chronic (3) Ventilator dependent: Status: Chronic (4) Congestive heart failure: Status: Chronic (5) Chronic obstructive pulmonary disease, unspecified: Status: Chronic (6) Atrial fibrillation: Status: Chronic (7) Tracheostomy in place: Status: Chronic (8) Chronic anemia: Status: Chronic SUBJECTIVE Fever:: none GI:: none Shortness of Breath:: unchanged GI:: nausea Pain:: none OBJECTIVE Most recent vital signs: Last Vital Signs Temp 97.0 F 09/27/24 18:00 Pulse 65 09/27/24 18:52 Resp 15 09/27/24 18:52 BP 93/56 L 09/27/24 18:00 Pulse Ox 100 09/27/24 18:52 O2 Del Method Mechanical Ventilation 09/27/24 18:00 FiO2 40 09/27/24 18:52 Neurological:: alert Speech:: nods head, mouths words and appropriate Answers questions:: yes Respiratory:: shallow breathing and rhonchi Cardiovascular: irregular Abdomen: soft Tracheostomy:: to ventilator Feeding per:: po ASSESSMENT & PLAN Assessment: stable. Tolerating ventilatory support. Not weanable because of generalized weakness. Tolerating feeding. Prognosis is very guarded. Patient aware. Tracheostomy revision done surgically. Psychotropics: Xanax 0.5 mgs bid has really done well to settle her anxiety. no side effects seen. She does not do well on lower titration of anxiety meds. No new issues. Had a bedside conversation on quality of life and end of life care at pt's request. Pt remains comfortable on current meds. 08-11-24 had a detailed conversation with pt's son about progressively worsening condition as expected in end stage COPD ventilator dependent and now more weak/inability to thrive. Code status was discussed and the extremely poor prognosis. 08-16-24 Pt's Hb was critical and hence ordered two units packed rbcs. Pt was in no distress. Post infusion levels are improved. No new complaints 09-23-24: She had an episode of being less responsive today but recovered quickly and blood gases checked stat which were normal ph 7.43, but PaO2 was low at 50mm Hg and saturations were good at 97%. General status quo maintained with expected worsening with limited prognosis. Comfort being achieved. Plan: Current treatment as well as ventilator settings reviewed and continued.
--- NOTE | 2024-09-27 23:29 | PC.RT ---
meds ordered pulmicort and adryan, spoke with Ruchi from pharmacy, meds will be here after midnight.
[2024-09-28] VITALS (9 sets, daily range): BP systolic 107–122; BP diastolic 60–62; PULSE 59–75; RESP 14–22; TEMP 36.4; O2SAT 97–100
[2024-09-28] MEDS: MIDODRINE 10 MG TABLET PO ×4 (00:35→17:13)
[2024-09-28] MEDS: IPRATROPIUM/ALBUTEROL 3 ML AMPUL.NEB INH ×6 (02:41→22:00)
[2024-09-28] MEDS: guaiFENesin Liq 100 MG/5 ML LIQUID PO ×3 (03:30→20:40)
[2024-09-28] MEDS: ALPRAZolam 0.5 MG TABLET PO ×3 (03:30→21:30)
[2024-09-28] MEDS: BUDESONIDE 0.5 MG/2 ML AMPUL.NEB INH ×2 (07:25→18:38)
[2024-09-28] MEDS: FAMOTIDINE 20 MG TABLET PO ×2 (08:47→20:44)
[2024-09-28] MEDS: ASCORBIC ACID 500 MG TABLET PO ×2 (08:47→20:43)
[2024-09-28] MEDS: MULTIVITAMIN 1 TAB TABLET PO (08:47)
[2024-09-28] MEDS: DEX/HYPRO/GLY ARTIFICAL TEARS 225 DROP/15 ML BTL BOTH EYES ×2 (08:47→20:43)
[2024-09-28] MEDS: SENNOSIDES 8.6 MG TABLET PO ×2 (08:48→20:44)
[2024-09-28] MEDS: VITAMIN B COMPLEX PO (08:48)
[2024-09-28] MEDS: AMIODARONE 200 MG TABLET PO (08:50)
[2024-09-28] MEDS: MAG HYDROX/ALUMINUM HYD/SIMETH 355 ML BTL 30 ML PO (08:51)
[2024-09-28] MEDS: ACETAMINOPHEN 325 MG TABLET 650 MG PO ×2 (08:51→20:40)
[2024-09-28] MEDS: ACET PO (17:52)
[2024-09-28] MEDS: HYDRO PO (17:52)
[2024-09-29] VITALS (13 sets, daily range): BP systolic 107–144; BP diastolic 51–77; PULSE 51–73; RESP 14–18; TEMP 36.3–36.4; O2SAT 97–100
[2024-09-29] MEDS: MIDODRINE 10 MG TABLET PO ×3 (00:03→11:29)
[2024-09-29] MEDS: IPRATROPIUM/ALBUTEROL 3 ML AMPUL.NEB INH ×6 (02:10→22:06)
[2024-09-29] MEDS: ACETAMINOPHEN 325 MG TABLET 650 MG PO ×2 (04:00→17:03)
[2024-09-29] MEDS: ALPRAZolam 0.5 MG TABLET PO ×3 (05:00→22:30)
[2024-09-29] MEDS: BUDESONIDE 0.5 MG/2 ML AMPUL.NEB INH ×2 (06:12→18:11)
[2024-09-29] MEDS: DEX/HYPRO/GLY ARTIFICAL TEARS 225 DROP/15 ML BTL BOTH EYES ×2 (09:02→20:55)
[2024-09-29] MEDS: ASCORBIC ACID 500 MG TABLET PO ×2 (09:02→20:55)
[2024-09-29] MEDS: AMIODARONE 200 MG TABLET PO (09:02)
[2024-09-29] MEDS: MULTIVITAMIN 1 TAB TABLET PO (09:03)
[2024-09-29] MEDS: FAMOTIDINE 20 MG TABLET PO ×2 (09:03→20:55)
[2024-09-29] MEDS: VITAMIN B COMPLEX PO (09:04)
[2024-09-29] MEDS: SENNOSIDES 8.6 MG TABLET PO ×2 (09:04→20:55)
[2024-09-29] MEDS: HYDRO PO (10:55)
[2024-09-29] MEDS: ACET PO (10:55)
--- NOTE | 2024-09-29 13:30 | PD.SAPROG ---
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 (2) Chronic respiratory failure with hypoxia and hypercapnia: Status: Chronic (3) Ventilator dependent: Status: Chronic (4) Congestive heart failure: Status: Chronic (5) Chronic obstructive pulmonary disease, unspecified: Status: Chronic (6) Atrial fibrillation: Status: Chronic (7) Tracheostomy in place: Status: Chronic (8) Chronic anemia: Status: Chronic SUBJECTIVE Fever:: none GI:: none Shortness of Breath:: unchanged GI:: nausea Pain:: none OBJECTIVE Most recent vital signs: Last Vital Signs Temp 97.7 F 10/03/24 11:49 Pulse 65 10/03/24 14:15 Resp 15 10/03/24 14:15 BP 101/80 10/03/24 11:49 Pulse Ox 98 10/03/24 14:15 O2 Del Method Mechanical Ventilation 10/02/24 06:00 FiO2 40 10/03/24 14:15 Neurological:: alert Speech:: nods head, mouths words and appropriate Answers questions:: yes Respiratory:: shallow breathing and rhonchi Cardiovascular: irregular Abdomen: soft Tracheostomy:: to ventilator Feeding per:: po ASSESSMENT & PLAN Assessment: stable. Tolerating ventilatory support. Not weanable because of generalized weakness. Tolerating feeding. Prognosis is very guarded. Patient aware. Tracheostomy revision done surgically. Psychotropics: Xanax 0.5 mgs bid has really done well to settle her anxiety. no side effects seen. She does not do well on lower titration of anxiety meds. No new issues. Had a bedside conversation on quality of life and end of life care at pt's request. Pt remains comfortable on current meds. 08-11-24 had a detailed conversation with pt's son about progressively worsening condition as expected in end stage COPD ventilator dependent and now more weak/inability to thrive. Code status was discussed and the extremely poor prognosis. 08-16-24 Pt's Hb was critical and hence ordered two units packed rbcs. Pt was in no distress. Post infusion levels are improved. No new complaints 09-23-24: She had an episode of being less responsive today but recovered quickly and blood gases checked stat which were normal ph 7.43, but PaO2 was low at 50mm Hg and saturations were good at 97%. General status quo maintained with expected worsening with limited prognosis. Comfort being achieved. Plan: Current treatment as well as ventilator settings reviewed and continued.
[2024-09-29] MEDS: guaiFENesin Liq 100 MG/5 ML LIQUID PO (20:45)
[2024-09-30] VITALS (11 sets, daily range): BP systolic 100–123; BP diastolic 60–67; PULSE 53–72; RESP 14–18; TEMP 36.1–36.8; O2SAT 98–100
[2024-09-30] MEDS: MIDODRINE 10 MG TABLET PO ×3 (00:05→11:24)
[2024-09-30] MEDS: IPRATROPIUM/ALBUTEROL 3 ML AMPUL.NEB INH ×4 (02:17→15:05)
[2024-09-30] MEDS: ACETAMINOPHEN 325 MG TABLET 650 MG PO (04:00)
[2024-09-30] MEDS: guaiFENesin Liq 100 MG/5 ML LIQUID PO ×3 (04:00→18:20)
[2024-09-30] MEDS: BUDESONIDE 0.5 MG/2 ML AMPUL.NEB INH (06:27)
[2024-09-30] MEDS: ACET PO ×2 (08:42→18:23)
[2024-09-30] MEDS: HYDRO PO ×2 (08:42→18:23)
[2024-09-30] MEDS: DEX/HYPRO/GLY ARTIFICAL TEARS 225 DROP/15 ML BTL BOTH EYES ×2 (09:08→20:11)
[2024-09-30] MEDS: FAMOTIDINE 20 MG TABLET PO ×2 (09:08→20:11)
[2024-09-30] MEDS: SENNOSIDES 8.6 MG TABLET PO ×2 (09:08→20:11)
[2024-09-30] MEDS: MULTIVITAMIN 1 TAB TABLET PO (09:08)
[2024-09-30] MEDS: ASCORBIC ACID 500 MG TABLET PO ×2 (09:08→20:11)
[2024-09-30] MEDS: VITAMIN B COMPLEX PO (09:09)
[2024-09-30] MEDS: ALPRAZolam 0.5 MG TABLET PO ×2 (12:05→20:04)
--- NOTE | 2024-09-30 14:27 | PC.NURSE ---
Resident is awake and alert, in no apparent distress, refuses bed bath,was able to convince patient to do treatments and take her to activity.Will continue to encourage resident the importance of daily hygiene.
--- NOTE | 2024-09-30 16:23 | PC.SS ---
Room visit: Resident remains on ventilator with trach in place and GT for medication and nutrition. Resident has no changes in care or condition, she will remain in current care and will have all subacute care needs met by staff. This SSD will continue to monitor for changes in mood and behavior.
[2024-10-01] VITALS (11 sets, daily range): BP systolic 105–124; BP diastolic 62–73; PULSE 70–93; RESP 14–15; TEMP 36.1–36.8; O2SAT 97–100
[2024-10-01] MEDS: guaiFENesin Liq 100 MG/5 ML LIQUID PO ×2 (00:31→23:15)
[2024-10-01] MEDS: MIDODRINE 10 MG TABLET PO ×3 (05:33→17:36)
[2024-10-01] MEDS: BUDESONIDE 0.5 MG/2 ML AMPUL.NEB INH ×2 (07:00→18:21)
[2024-10-01] MEDS: IPRATROPIUM/ALBUTEROL 3 ML AMPUL.NEB INH ×5 (07:00→22:07)
[2024-10-01] MEDS: ALPRAZolam 0.5 MG TABLET PO ×2 (08:51→17:40)
[2024-10-01] MEDS: AMIODARONE 200 MG TABLET PO (09:40)
[2024-10-01] MEDS: SENNOSIDES 8.6 MG TABLET PO ×2 (09:40→21:10)
[2024-10-01] MEDS: FAMOTIDINE 20 MG TABLET PO ×2 (09:40→21:10)
[2024-10-01] MEDS: DEX/HYPRO/GLY ARTIFICAL TEARS 225 DROP/15 ML BTL BOTH EYES ×2 (09:40→21:10)
[2024-10-01] MEDS: MULTIVITAMIN 1 TAB TABLET PO (09:40)
[2024-10-01] MEDS: VITAMIN B COMPLEX PO (09:40)
[2024-10-01] MEDS: ASCORBIC ACID 500 MG TABLET PO ×2 (09:40→21:09)
[2024-10-01] MEDS: ACETAMINOPHEN 325 MG TABLET 650 MG PO ×2 (11:22→21:00)
--- NOTE | 2024-10-01 16:30 | PC.SS ---
This SSD followed up with resident, she appears to be doing well with no concerns or complaints. Resident stated she feels good and is being treated well. When asked how her care team is treating her she said good. resident is not showing any changes in mood and behavior, she is seen smiling and enjoys room visits.
--- NOTE | 2024-10-01 17:22 | PC.NURSE ---
Resident awake in good spirits smiling & greets all nursing staff when entering room. Watching TV programs this shift no s/s of any distress or discomfort. Call light in reach. Will continue to monitor
[2024-10-02] VITALS (11 sets, daily range): BP systolic 105–126; BP diastolic 65–71; PULSE 55–80; RESP 14–18; TEMP 36.4–36.9; O2SAT 99–100
[2024-10-02] MEDS: IPRATROPIUM/ALBUTEROL 3 ML AMPUL.NEB INH ×6 (02:07→22:00)
[2024-10-02] MEDS: BUDESONIDE 0.5 MG/2 ML AMPUL.NEB INH ×2 (06:38→18:00)
[2024-10-02] MEDS: ALPRAZolam 0.5 MG TABLET PO ×2 (08:00→16:46)
[2024-10-02] MEDS: ASCORBIC ACID 500 MG TABLET PO ×2 (09:31→20:20)
[2024-10-02] MEDS: AMIODARONE 200 MG TABLET PO (09:31)
[2024-10-02] MEDS: DEX/HYPRO/GLY ARTIFICAL TEARS 225 DROP/15 ML BTL BOTH EYES ×2 (09:31→20:20)
[2024-10-02] MEDS: MULTIVITAMIN 1 TAB TABLET PO (09:31)
[2024-10-02] MEDS: FAMOTIDINE 20 MG TABLET PO ×2 (09:31→20:21)
[2024-10-02] MEDS: VITAMIN B COMPLEX PO (09:32)
[2024-10-02] MEDS: SENNOSIDES 8.6 MG TABLET PO ×2 (09:32→20:22)
[2024-10-02] MEDS: guaiFENesin Liq 100 MG/5 ML LIQUID PO (11:12)
[2024-10-02] MEDS: HYDRO PO ×2 (11:15→20:22)
[2024-10-02] MEDS: ACET PO ×2 (11:15→20:22)
[2024-10-02] MEDS: MIDODRINE 10 MG TABLET PO (11:35)
[2024-10-02] MEDS: ACETAMINOPHEN 325 MG TABLET 650 MG PO (17:56)
[2024-10-03] VITALS (13 sets, daily range): BP systolic 90–144; BP diastolic 60–80; PULSE 65–97; RESP 14–20; TEMP 36.5–36.9; O2SAT 98–100
[2024-10-03] MEDS: guaiFENesin Liq 100 MG/5 ML LIQUID PO ×3 (00:10→20:24)
[2024-10-03] MEDS: IPRATROPIUM/ALBUTEROL 3 ML AMPUL.NEB INH ×6 (01:46→22:00)
--- NOTE | 2024-10-03 04:19 | PC.NURSE ---
Psychosocial monitoring ongoing. Resident alert and talkative with staff. In good spirits.
[2024-10-03] MEDS: ACETAMINOPHEN 325 MG TABLET 650 MG PO (05:06)
[2024-10-03] MEDS: ALPRAZolam 0.5 MG TABLET PO ×3 (05:07→21:25)
[2024-10-03] MEDS: BUDESONIDE 0.5 MG/2 ML AMPUL.NEB INH (07:03)
[2024-10-03] MEDS: ASCORBIC ACID 500 MG TABLET PO ×2 (08:38→20:20)
[2024-10-03] MEDS: DEX/HYPRO/GLY ARTIFICAL TEARS 225 DROP/15 ML BTL BOTH EYES ×2 (08:39→20:23)
[2024-10-03] MEDS: VITAMIN B COMPLEX PO (08:39)
[2024-10-03] MEDS: SENNOSIDES 8.6 MG TABLET PO ×2 (08:39→20:23)
[2024-10-03] MEDS: FAMOTIDINE 20 MG TABLET PO ×2 (08:39→20:23)
[2024-10-03] MEDS: MULTIVITAMIN 1 TAB TABLET PO (08:39)
[2024-10-03] MEDS: ACET PO (11:07)
[2024-10-03] MEDS: HYDRO PO (11:07)
[2024-10-03] MEDS: MIDODRINE 10 MG TABLET PO ×3 (12:00→23:20)
[2024-10-04] VITALS (12 sets, daily range): BP systolic 100–131; BP diastolic 52–68; PULSE 61–89; RESP 14–16; TEMP 36.1–36.6; O2SAT 96–99
[2024-10-04] MEDS: ACETAMINOPHEN 325 MG TABLET 650 MG PO ×2 (02:05→23:02)
[2024-10-04] MEDS: IPRATROPIUM/ALBUTEROL 3 ML AMPUL.NEB INH ×6 (03:47→22:30)
[2024-10-04] MEDS: ALPRAZolam 0.5 MG TABLET PO ×2 (08:28→16:30)
[2024-10-04] MEDS: AMIODARONE 200 MG TABLET PO (08:31)
[2024-10-04] MEDS: ASCORBIC ACID 500 MG TABLET PO ×2 (08:32→20:18)
[2024-10-04] MEDS: MULTIVITAMIN 1 TAB TABLET PO (08:32)
[2024-10-04] MEDS: SENNOSIDES 8.6 MG TABLET PO ×2 (08:32→20:20)
[2024-10-04] MEDS: MAGNESIUM HYDROXIDE 30 ML ORAL SUSP ML PO (08:32)
[2024-10-04] MEDS: DEX/HYPRO/GLY ARTIFICAL TEARS 225 DROP/15 ML BTL BOTH EYES ×2 (08:32→20:19)
[2024-10-04] MEDS: VITAMIN B COMPLEX PO (08:32)
[2024-10-04] MEDS: FAMOTIDINE 20 MG TABLET PO ×2 (08:32→20:19)
[2024-10-04] MEDS: MIDODRINE 10 MG TABLET PO ×3 (12:00→23:03)
--- NOTE | 2024-10-04 12:16 | PC.NURSE ---
Resident refused her scheduled shower today. All treatments were done. Resident resting in bed with call light in reach.
[2024-10-04] MEDS: BUDESONIDE 0.5 MG/2 ML AMPUL.NEB INH ×2 (13:42→16:43)
[2024-10-04] MEDS: HYDRO PO (16:57)
[2024-10-04] MEDS: ACET PO (16:57)
--- NOTE | 2024-10-04 18:36 | PC.NURSE ---
Late entry for 10/03/24 at 1500- Psychosocial monitoring. No changes this shift. No s/s of distress noted. Resident in a good spirits. Call light within reach. Will continue with current plan of care.
[2024-10-05] VITALS (11 sets, daily range): BP systolic 111–135; BP diastolic 55–69; PULSE 61–83; RESP 14–22; TEMP 36.3–36.4; O2SAT 98–100
[2024-10-05] MEDS: guaiFENesin Liq 100 MG/5 ML LIQUID PO ×3 (00:05→20:44)
[2024-10-05] MEDS: IPRATROPIUM/ALBUTEROL 3 ML AMPUL.NEB INH ×5 (02:32→22:00)
[2024-10-05] MEDS: MIDODRINE 10 MG TABLET PO ×3 (05:26→23:42)
[2024-10-05] MEDS: BUDESONIDE 0.5 MG/2 ML AMPUL.NEB INH ×2 (06:12→18:45)
[2024-10-05] MEDS: ALPRAZolam 0.5 MG TABLET PO ×2 (09:10→20:45)
[2024-10-05] MEDS: ASCORBIC ACID 500 MG TABLET PO ×2 (09:14→21:00)
[2024-10-05] MEDS: AMIODARONE 200 MG TABLET PO (09:14)
[2024-10-05] MEDS: DEX/HYPRO/GLY ARTIFICAL TEARS 225 DROP/15 ML BTL BOTH EYES ×2 (09:15→21:00)
[2024-10-05] MEDS: SENNOSIDES 8.6 MG TABLET PO ×2 (09:16→21:00)
[2024-10-05] MEDS: MULTIVITAMIN 1 TAB TABLET PO (09:16)
[2024-10-05] MEDS: FAMOTIDINE 20 MG TABLET PO ×2 (09:16→21:00)
[2024-10-05] MEDS: VITAMIN B COMPLEX PO (09:17)
[2024-10-05] MEDS: ACETAMINOPHEN 325 MG TABLET 650 MG PO ×2 (09:18→20:44)
[2024-10-05] MEDS: HYDRO PO (14:40)
[2024-10-05] MEDS: ACET PO (14:40)
[2024-10-06] VITALS (13 sets, daily range): BP systolic 100–150; BP diastolic 55–74; PULSE 61–82; RESP 14–16; TEMP 36.2–36.8; O2SAT 98–100
[2024-10-06] MEDS: IPRATROPIUM/ALBUTEROL 3 ML AMPUL.NEB INH ×6 (02:00→22:10)
[2024-10-06] MEDS: MIDODRINE 10 MG TABLET PO ×2 (05:45→11:28)
[2024-10-06] MEDS: BUDESONIDE 0.5 MG/2 ML AMPUL.NEB INH ×2 (05:55→19:35)
[2024-10-06] MEDS: ALPRAZolam 0.5 MG TABLET PO ×2 (09:18→20:10)
[2024-10-06] MEDS: ASCORBIC ACID 500 MG TABLET PO ×2 (09:19→20:38)
[2024-10-06] MEDS: AMIODARONE 200 MG TABLET PO (09:19)
[2024-10-06] MEDS: SENNOSIDES 8.6 MG TABLET PO ×2 (09:20→20:38)
[2024-10-06] MEDS: FAMOTIDINE 20 MG TABLET PO ×2 (09:20→20:37)
[2024-10-06] MEDS: MULTIVITAMIN 1 TAB TABLET PO (09:20)
[2024-10-06] MEDS: DEX/HYPRO/GLY ARTIFICAL TEARS 225 DROP/15 ML BTL BOTH EYES ×2 (09:20→20:38)
[2024-10-06] MEDS: VITAMIN B COMPLEX PO (09:21)
[2024-10-06] MEDS: guaiFENesin Liq 100 MG/5 ML LIQUID PO ×2 (09:22→15:19)
[2024-10-06] MEDS: ACETAMINOPHEN 325 MG TABLET 650 MG PO ×2 (13:03→20:10)
[2024-10-06] MEDS: ACET PO (15:19)
[2024-10-06] MEDS: HYDRO PO (15:19)
[2024-10-07] VITALS (11 sets, daily range): BP systolic 92–156; BP diastolic 52–76; PULSE 58–86; RESP 14–21; TEMP 36.6–36.8; O2SAT 97–100
[2024-10-07] MEDS: HYDRO PO ×3 (00:20→21:49)
[2024-10-07] MEDS: ACET PO ×3 (00:20→21:49)
[2024-10-07] MEDS: IPRATROPIUM/ALBUTEROL 3 ML AMPUL.NEB INH ×6 (02:15→22:10)
[2024-10-07] MEDS: MIDODRINE 10 MG TABLET PO ×2 (05:50→17:27)
[2024-10-07] MEDS: BUDESONIDE 0.5 MG/2 ML AMPUL.NEB INH ×2 (06:17→18:00)
[2024-10-07] MEDS: ALPRAZolam 0.5 MG TABLET PO ×2 (07:30→16:30)
[2024-10-07] MEDS: guaiFENesin Liq 100 MG/5 ML LIQUID PO ×2 (07:30→21:44)
[2024-10-07] MEDS: ACETAMINOPHEN 325 MG TABLET 650 MG PO ×3 (07:30→23:55)
[2024-10-07] MEDS: MULTIVITAMIN 1 TAB TABLET PO (08:14)
[2024-10-07] MEDS: FAMOTIDINE 20 MG TABLET PO ×2 (08:14→21:43)
[2024-10-07] MEDS: DEX/HYPRO/GLY ARTIFICAL TEARS 225 DROP/15 ML BTL BOTH EYES ×2 (08:14→21:43)
[2024-10-07] MEDS: VITAMIN B COMPLEX PO (08:14)
[2024-10-07] MEDS: ASCORBIC ACID 500 MG TABLET PO ×2 (08:14→21:43)
[2024-10-07] MEDS: AMIODARONE 200 MG TABLET PO (08:14)
[2024-10-07] MEDS: SENNOSIDES 8.6 MG TABLET PO ×2 (08:14→21:45)
--- NOTE | 2024-10-07 16:24 | PC.SS ---
Resident seen in activities room leobardo Ash chair, she is seen doing exercises with RNA. She is seen smiling and socializing while doing her exercises. Resident stated how much she like RNA, she is in good spirits. This SSD will continue to make contact with resident and monitor for her changes in mood and behavior.
[2024-10-08] VITALS (10 sets, daily range): BP systolic 100–130; BP diastolic 60–74; PULSE 60–83; RESP 14–22; TEMP 36.1–36.6; O2SAT 97–100
[2024-10-08] MEDS: IPRATROPIUM/ALBUTEROL 3 ML AMPUL.NEB INH ×6 (02:10→22:23)
[2024-10-08] MEDS: MIDODRINE 10 MG TABLET PO ×2 (06:03→18:06)
[2024-10-08] MEDS: BUDESONIDE 0.5 MG/2 ML AMPUL.NEB INH ×2 (06:17→19:25)
[2024-10-08] MEDS: ACETAMINOPHEN 325 MG TABLET 650 MG PO (07:30)
[2024-10-08] MEDS: ALPRAZolam 0.5 MG TABLET PO ×2 (08:47→18:39)
[2024-10-08] MEDS: ASCORBIC ACID 500 MG TABLET PO ×2 (09:13→20:09)
[2024-10-08] MEDS: FAMOTIDINE 20 MG TABLET PO ×2 (09:13→20:09)
[2024-10-08] MEDS: DEX/HYPRO/GLY ARTIFICAL TEARS 225 DROP/15 ML BTL BOTH EYES ×2 (09:13→20:09)
[2024-10-08] MEDS: AMIODARONE 200 MG TABLET PO (09:13)
[2024-10-08] MEDS: VITAMIN B COMPLEX PO (09:14)
[2024-10-08] MEDS: MULTIVITAMIN 1 TAB TABLET PO (09:14)
[2024-10-08] MEDS: SENNOSIDES 8.6 MG TABLET PO ×2 (09:14→20:09)
[2024-10-08] MEDS: guaiFENesin Liq 100 MG/5 ML LIQUID PO ×3 (09:15→22:33)
--- NOTE | 2024-10-08 12:34 | PC.SS ---
Room visit: Resident is laying in bed watching TV, she is in good spirits and is smiling and engaging during room visit. Resident continues to enjoy having visits in room and conversing with staff. This SSD informed by RNA resident enjoyed being in activities yesterday, she wanted to stay in Nilsa chair and have lunch in activity room. Resident is being encouraged to participate in out of room activities, she is enjoying coming out of room for her exercises with RNA. Resident states she is happy. This SSD will continue to make daily contact with resident and monitor for changes in mood and behavior.
[2024-10-08] MEDS: HYDRO PO (15:18)
[2024-10-08] MEDS: ACET PO (15:18)
--- NOTE | 2024-10-08 20:07 | PD.SAPROG ---
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 (2) Chronic respiratory failure with hypoxia and hypercapnia: Status: Chronic (3) Ventilator dependent: Status: Chronic (4) Congestive heart failure: Status: Chronic (5) Chronic obstructive pulmonary disease, unspecified: Status: Chronic (6) Atrial fibrillation: Status: Chronic (7) Tracheostomy in place: Status: Chronic (8) Chronic anemia: Status: Chronic SUBJECTIVE Fever:: none GI:: none Shortness of Breath:: unchanged GI:: nausea Pain:: none OBJECTIVE Most recent vital signs: Last Vital Signs Temp 97 F 10/08/24 18:00 Pulse 78 10/08/24 19:25 Resp 22 H 10/08/24 19:25 BP 119/68 10/08/24 18:00 Pulse Ox 100 10/08/24 19:25 O2 Del Method Mechanical Ventilation 10/08/24 18:00 FiO2 40 10/08/24 19:25 Neurological:: alert Speech:: nods head, mouths words and appropriate Answers questions:: yes Respiratory:: shallow breathing and rhonchi Cardiovascular: irregular Abdomen: soft Tracheostomy:: to ventilator Feeding per:: po ASSESSMENT & PLAN Assessment: stable. Tolerating ventilatory support. Not weanable because of generalized weakness. Tolerating feeding. Prognosis is very guarded. Patient aware. Tracheostomy revision done surgically. Psychotropics: Xanax 0.5 mgs bid has really done well to settle her anxiety. no side effects seen. She does not do well on lower titration of anxiety meds. No new issues. Had a bedside conversation on quality of life and end of life care at pt's request. Pt remains comfortable on current meds. 08-11-24 had a detailed conversation with pt's son about progressively worsening condition as expected in end stage COPD ventilator dependent and now more weak/inability to thrive. Code status was discussed and the extremely poor prognosis. 08-16-24 Pt's Hb was critical and hence ordered two units packed rbcs. Pt was in no distress. Post infusion levels are improved. No new complaints 09-23-24: She had an episode of being less responsive today but recovered quickly and blood gases checked stat which were normal ph 7.43, but PaO2 was low at 50mm Hg and saturations were good at 97%. General status quo maintained with expected worsening with limited prognosis. Comfort being achieved very well. Plan: Current treatment as well as ventilator settings reviewed and continued.
[2024-10-09] VITALS (11 sets, daily range): BP systolic 110–134; BP diastolic 63–70; PULSE 65–82; RESP 14–18; TEMP 36.6; O2SAT 97–100
[2024-10-09] MEDS: IPRATROPIUM/ALBUTEROL 3 ML AMPUL.NEB INH ×6 (02:02→22:00)
[2024-10-09] MEDS: HYDRO PO ×2 (04:15→16:25)
[2024-10-09] MEDS: ACET PO ×2 (04:15→16:25)
[2024-10-09] MEDS: guaiFENesin Liq 100 MG/5 ML LIQUID PO (04:15)
[2024-10-09] MEDS: MAG HYDROX/ALUMINUM HYD/SIMETH 355 ML BTL 30 ML PO (05:00)
[2024-10-09] MEDS: BUDESONIDE 0.5 MG/2 ML AMPUL.NEB INH ×2 (06:22→20:09)
[2024-10-09] MEDS: MULTIVITAMIN 1 TAB TABLET PO (08:55)
[2024-10-09] MEDS: VITAMIN B COMPLEX PO (08:55)
[2024-10-09] MEDS: SENNOSIDES 8.6 MG TABLET PO ×2 (08:55→20:02)
[2024-10-09] MEDS: DEX/HYPRO/GLY ARTIFICAL TEARS 225 DROP/15 ML BTL BOTH EYES ×2 (08:56→20:02)
[2024-10-09] MEDS: AMIODARONE 200 MG TABLET PO (08:56)
[2024-10-09] MEDS: ASCORBIC ACID 500 MG TABLET PO ×2 (08:56→20:01)
[2024-10-09] MEDS: FAMOTIDINE 20 MG TABLET PO ×2 (08:56→20:02)
[2024-10-09] MEDS: ALPRAZolam 0.5 MG TABLET PO ×2 (09:00→18:30)
[2024-10-09] MEDS: MIDODRINE 10 MG TABLET PO ×2 (11:46)
[2024-10-09] MEDS: BISACODYL 10 MG SUPP.RECT PR (15:00)
[2024-10-10] VITALS (11 sets, daily range): BP systolic 121–125; BP diastolic 7–72; PULSE 67–82; RESP 14–18; TEMP 36.4–36.6; O2SAT 97–100
[2024-10-10] MEDS: IPRATROPIUM/ALBUTEROL 3 ML AMPUL.NEB INH ×6 (02:15→22:10)
[2024-10-10] MEDS: BUDESONIDE 0.5 MG/2 ML AMPUL.NEB INH ×2 (06:17→18:20)
[2024-10-10] MEDS: ALPRAZolam 0.5 MG TABLET PO ×2 (06:23→19:30)
[2024-10-10] MEDS: VITAMIN B COMPLEX PO (09:00)
[2024-10-10] MEDS: AMIODARONE 200 MG TABLET PO (09:01)
[2024-10-10] MEDS: DEX/HYPRO/GLY ARTIFICAL TEARS 225 DROP/15 ML BTL BOTH EYES ×2 (09:02→21:14)
[2024-10-10] MEDS: ASCORBIC ACID 500 MG TABLET PO ×2 (09:02→21:14)
[2024-10-10] MEDS: MULTIVITAMIN 1 TAB TABLET PO (09:07)
[2024-10-10] MEDS: FAMOTIDINE 20 MG TABLET PO ×2 (09:07→21:14)
[2024-10-10] MEDS: SENNOSIDES 8.6 MG TABLET PO ×2 (09:10→21:14)
[2024-10-10] MEDS: guaiFENesin Liq 100 MG/5 ML LIQUID PO (09:10)
[2024-10-10] MEDS: HYDRO PO (11:20)
[2024-10-10] MEDS: ACET PO (11:20)
[2024-10-10] MEDS: MIDODRINE 10 MG TABLET PO (17:16)
[2024-10-10] MEDS: ACETAMINOPHEN 325 MG TABLET 650 MG PO (19:30)
[2024-10-10] MEDS: guaiFENesin Liq 100 MG/5 ML LIQUID 300 MG PO (20:55)
[2024-10-11] VITALS (12 sets, daily range): BP systolic 98–154; BP diastolic 52–75; PULSE 59–95; RESP 14–26; TEMP 36.1–36.6; O2SAT 98–100
[2024-10-11] MEDS: HYDRO PO ×2 (01:25→15:45)
[2024-10-11] MEDS: ACET PO ×2 (01:25→15:45)
[2024-10-11] MEDS: IPRATROPIUM/ALBUTEROL 3 ML AMPUL.NEB INH ×6 (02:10→22:10)
[2024-10-11] MEDS: MIDODRINE 10 MG TABLET PO ×2 (05:03→23:08)
[2024-10-11] MEDS: BUDESONIDE 0.5 MG/2 ML AMPUL.NEB INH ×2 (06:53→17:00)
[2024-10-11] MEDS: SENNOSIDES 8.6 MG TABLET PO ×2 (09:57→20:37)
[2024-10-11] MEDS: DEX/HYPRO/GLY ARTIFICAL TEARS 225 DROP/15 ML BTL BOTH EYES ×2 (09:57→20:37)
[2024-10-11] MEDS: MULTIVITAMIN 1 TAB TABLET PO (09:57)
[2024-10-11] MEDS: VITAMIN B COMPLEX PO (09:57)
[2024-10-11] MEDS: FAMOTIDINE 20 MG TABLET PO ×2 (09:57→20:37)
[2024-10-11] MEDS: ASCORBIC ACID 500 MG TABLET PO ×2 (09:57→20:37)
[2024-10-11] MEDS: ACETAMINOPHEN 325 MG TABLET 650 MG PO (10:00)
[2024-10-11] MEDS: guaiFENesin Liq 100 MG/5 ML LIQUID 300 MG PO (10:00)
[2024-10-11] MEDS: ALPRAZolam 0.5 MG TABLET PO ×2 (10:00→18:20)
[2024-10-11] MEDS: MAGNESIUM HYDROXIDE 30 ML ORAL SUSP ML PO (21:10)
[2024-10-12] VITALS (11 sets, daily range): BP systolic 92–131; BP diastolic 57–63; PULSE 61–89; RESP 16–24; TEMP 36–36.8; O2SAT 99–100
[2024-10-12] MEDS: IPRATROPIUM/ALBUTEROL 3 ML AMPUL.NEB INH ×6 (03:41→22:00)
[2024-10-12] MEDS: ALPRAZolam 0.5 MG TABLET PO ×3 (04:15→20:11)
[2024-10-12] MEDS: MIDODRINE 10 MG TABLET PO ×3 (05:05→23:27)
[2024-10-12] MEDS: BUDESONIDE 0.5 MG/2 ML AMPUL.NEB INH ×2 (06:32→18:00)
[2024-10-12] MEDS: AMIODARONE 200 MG TABLET PO (09:03)
[2024-10-12] MEDS: FAMOTIDINE 20 MG TABLET PO ×2 (09:04→20:10)
[2024-10-12] MEDS: DEX/HYPRO/GLY ARTIFICAL TEARS 225 DROP/15 ML BTL BOTH EYES ×2 (09:04→20:10)
[2024-10-12] MEDS: ASCORBIC ACID 500 MG TABLET PO ×2 (09:04→20:10)
[2024-10-12] MEDS: MULTIVITAMIN 1 TAB TABLET PO (09:05)
[2024-10-12] MEDS: SENNOSIDES 8.6 MG TABLET PO ×2 (09:05→20:10)
[2024-10-12] MEDS: VITAMIN B COMPLEX PO (09:06)
[2024-10-12] MEDS: guaiFENesin Liq 100 MG/5 ML LIQUID 300 MG PO ×2 (11:51→17:53)
[2024-10-12] MEDS: ACETAMINOPHEN 325 MG TABLET 650 MG PO (15:00)
[2024-10-12] MEDS: MAGNESIUM HYDROXIDE 30 ML ORAL SUSP ML PO (17:03)
[2024-10-12] MEDS: HYDRO PO (19:00)
[2024-10-12] MEDS: ACET PO (19:00)
--- NOTE | 2024-10-12 21:35 | PD.SAPROG ---
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 (2) Chronic respiratory failure with hypoxia and hypercapnia: Status: Chronic (3) Ventilator dependent: Status: Chronic (4) Congestive heart failure: Status: Chronic (5) Chronic obstructive pulmonary disease, unspecified: Status: Chronic (6) Atrial fibrillation: Status: Chronic (7) Tracheostomy in place: Status: Chronic (8) Chronic anemia: Status: Chronic SUBJECTIVE Fever:: none GI:: none Shortness of Breath:: unchanged GI:: nausea Pain:: none OBJECTIVE Most recent vital signs: Last Vital Signs Temp 98.3 F 10/12/24 17:54 Pulse 89 10/12/24 17:54 Resp 16 10/12/24 17:54 BP 92/59 L 10/12/24 17:54 Pulse Ox 99 10/12/24 17:54 O2 Del Method Mechanical Ventilation 10/11/24 18:00 FiO2 40 10/12/24 14:02 Neurological:: alert Speech:: nods head, mouths words and appropriate Answers questions:: yes Respiratory:: shallow breathing and rhonchi Cardiovascular: irregular Abdomen: soft Tracheostomy:: to ventilator Feeding per:: po ASSESSMENT & PLAN Assessment: stable. Tolerating ventilatory support. Not weanable because of generalized weakness. Tolerating feeding. Prognosis is very guarded. Patient aware. Tracheostomy revision done surgically. Psychotropics: Xanax 0.5 mgs bid has really done well to settle her anxiety. no side effects seen. She does not do well on lower titration of anxiety meds. No new issues. Had a bedside conversation on quality of life and end of life care at pt's request. Pt remains comfortable on current meds. 08-11-24 had a detailed conversation with pt's son about progressively worsening condition as expected in end stage COPD ventilator dependent and now more weak/inability to thrive. Code status was discussed and the extremely poor prognosis. 08-16-24 Pt's Hb was critical and hence ordered two units packed rbcs. Pt was in no distress. Post infusion levels are improved. No new complaints 09-23-24: She had an episode of being less responsive today but recovered quickly and blood gases checked stat which were normal ph 7.43, but PaO2 was low at 50mm Hg and saturations were good at 97%. General status quo maintained with expected worsening with limited prognosis. Comfort being achieved very well. Plan: Current treatment as well as ventilator settings reviewed and continued.
[2024-10-13] VITALS (12 sets, daily range): BP systolic 100–137; BP diastolic 59–73; PULSE 50–84; RESP 14–23; TEMP 36.3–36.7; O2SAT 97–100
[2024-10-13] MEDS: IPRATROPIUM/ALBUTEROL 3 ML AMPUL.NEB INH ×5 (02:37→17:09)
[2024-10-13] MEDS: MIDODRINE 10 MG TABLET PO (05:40)
[2024-10-13] MEDS: BUDESONIDE 0.5 MG/2 ML AMPUL.NEB INH (06:05)
[2024-10-13] MEDS: AMIODARONE 200 MG TABLET PO (08:53)
[2024-10-13] MEDS: ASCORBIC ACID 500 MG TABLET PO ×2 (08:54→21:00)
[2024-10-13] MEDS: DEX/HYPRO/GLY ARTIFICAL TEARS 225 DROP/15 ML BTL BOTH EYES ×2 (08:54→21:00)
[2024-10-13] MEDS: FAMOTIDINE 20 MG TABLET PO ×2 (08:55→21:00)
[2024-10-13] MEDS: SENNOSIDES 8.6 MG TABLET PO ×2 (08:55→21:00)
[2024-10-13] MEDS: MULTIVITAMIN 1 TAB TABLET PO (08:55)
[2024-10-13] MEDS: VITAMIN B COMPLEX PO (08:56)
[2024-10-13] MEDS: ALPRAZolam 0.5 MG TABLET PO ×2 (11:35→20:54)
--- NOTE | 2024-10-13 13:08 | PC.NURSE ---
Seen by Dr Salazar, no new orders made.
[2024-10-13] MEDS: HYDRO PO (15:10)
[2024-10-13] MEDS: ACET PO (15:10)
[2024-10-13] MEDS: guaiFENesin Liq 100 MG/5 ML LIQUID 300 MG PO (15:45)
[2024-10-14] VITALS (12 sets, daily range): BP systolic 108–128; BP diastolic 66–76; PULSE 60–90; RESP 14–18; TEMP 36.1–36.7; O2SAT 96–100
[2024-10-14] MEDS: ACETAMINOPHEN 325 MG TABLET 650 MG PO ×2 (04:00→22:32)
[2024-10-14] MEDS: IPRATROPIUM/ALBUTEROL 3 ML AMPUL.NEB INH ×5 (06:05→22:00)
[2024-10-14] MEDS: MIDODRINE 10 MG TABLET PO ×2 (06:08→11:37)
[2024-10-14] MEDS: AMIODARONE 200 MG TABLET PO (08:45)
[2024-10-14] MEDS: ASCORBIC ACID 500 MG TABLET PO ×2 (08:45→21:12)
[2024-10-14] MEDS: FAMOTIDINE 20 MG TABLET PO ×2 (08:45→21:12)
[2024-10-14] MEDS: MULTIVITAMIN 1 TAB TABLET PO (08:45)
[2024-10-14] MEDS: SENNOSIDES 8.6 MG TABLET PO ×2 (08:45→21:12)
[2024-10-14] MEDS: DEX/HYPRO/GLY ARTIFICAL TEARS 225 DROP/15 ML BTL BOTH EYES ×2 (08:45→21:12)
[2024-10-14] MEDS: VITAMIN B COMPLEX PO (08:46)
[2024-10-14] MEDS: ALPRAZolam 0.5 MG TABLET PO ×2 (10:35→18:45)
[2024-10-14] MEDS: guaiFENesin Liq 100 MG/5 ML LIQUID 300 MG PO ×3 (11:00→23:32)
[2024-10-14] MEDS: BUDESONIDE 0.5 MG/2 ML AMPUL.NEB INH ×2 (18:19)
[2024-10-15] VITALS (11 sets, daily range): BP systolic 125–140; BP diastolic 65–73; PULSE 60–86; RESP 14–18; TEMP 36.4–36.7; O2SAT 98–100
[2024-10-15] MEDS: IPRATROPIUM/ALBUTEROL 3 ML AMPUL.NEB INH ×6 (02:42→22:15)
[2024-10-15] MEDS: ALPRAZolam 0.5 MG TABLET PO ×2 (05:25→16:30)
[2024-10-15] MEDS: BUDESONIDE 0.5 MG/2 ML AMPUL.NEB INH ×2 (07:10→18:00)
[2024-10-15] MEDS: guaiFENesin Liq 100 MG/5 ML LIQUID 300 MG PO (08:00)
[2024-10-15] MEDS: AMIODARONE 200 MG TABLET PO (09:05)
[2024-10-15] MEDS: ASCORBIC ACID 500 MG TABLET PO ×2 (09:05→21:52)
[2024-10-15] MEDS: DEX/HYPRO/GLY ARTIFICAL TEARS 225 DROP/15 ML BTL BOTH EYES ×2 (09:06→21:53)
[2024-10-15] MEDS: FAMOTIDINE 20 MG TABLET PO ×2 (09:07→21:53)
[2024-10-15] MEDS: MULTIVITAMIN 1 TAB TABLET PO (09:07)
[2024-10-15] MEDS: SENNOSIDES 8.6 MG TABLET PO ×2 (09:07→21:53)
[2024-10-15] MEDS: VITAMIN B COMPLEX PO (09:09)
[2024-10-15] MEDS: HYDRO PO ×2 (12:00→19:30)
[2024-10-15] MEDS: ACET PO ×2 (12:00→19:30)
[2024-10-15] MEDS: MIDODRINE 10 MG TABLET PO ×2 (18:20)
[2024-10-16] VITALS (10 sets, daily range): BP systolic 107–130; BP diastolic 68–74; PULSE 67–80; RESP 14–18; TEMP 36.2–36.4; O2SAT 98–100
[2024-10-16] MEDS: IPRATROPIUM/ALBUTEROL 3 ML AMPUL.NEB INH ×6 (02:15→22:40)
[2024-10-16] MEDS: ACETAMINOPHEN 325 MG TABLET 650 MG PO (04:40)
[2024-10-16] MEDS: MIDODRINE 10 MG TABLET PO ×3 (06:07→11:45)
[2024-10-16] MEDS: BUDESONIDE 0.5 MG/2 ML AMPUL.NEB INH ×2 (06:07→16:55)
[2024-10-16] MEDS: AMIODARONE 200 MG TABLET PO (09:41)
[2024-10-16] MEDS: ASCORBIC ACID 500 MG TABLET PO ×2 (09:41→20:12)
[2024-10-16] MEDS: MULTIVITAMIN 1 TAB TABLET PO (09:42)
[2024-10-16] MEDS: SENNOSIDES 8.6 MG TABLET PO ×2 (09:42→20:12)
[2024-10-16] MEDS: DEX/HYPRO/GLY ARTIFICAL TEARS 225 DROP/15 ML BTL BOTH EYES ×2 (09:42→20:12)
[2024-10-16] MEDS: FAMOTIDINE 20 MG TABLET PO ×2 (09:42→20:12)
[2024-10-16] MEDS: VITAMIN B COMPLEX PO (09:42)
[2024-10-16] MEDS: ALPRAZolam 0.5 MG TABLET PO ×3 (09:50→18:20)
[2024-10-16] MEDS: HYDRO PO ×2 (10:58→20:12)
[2024-10-16] MEDS: ACET PO ×2 (10:58→20:12)
[2024-10-17] VITALS (11 sets, daily range): BP systolic 100–163; BP diastolic 65–67; PULSE 56–85; RESP 14–15; TEMP 36.1–36.9; O2SAT 97–99
[2024-10-17] MEDS: ACETAMINOPHEN 325 MG TABLET 650 MG PO ×2 (01:27→17:45)
[2024-10-17] MEDS: guaiFENesin Liq 100 MG/5 ML LIQUID 300 MG PO ×2 (01:27→12:50)
[2024-10-17] MEDS: ALPRAZolam 0.5 MG TABLET PO ×2 (01:50→16:05)
[2024-10-17] MEDS: IPRATROPIUM/ALBUTEROL 3 ML AMPUL.NEB INH ×6 (02:20→22:20)
[2024-10-17] MEDS: MIDODRINE 10 MG TABLET PO ×5 (06:33→23:37)
[2024-10-17] MEDS: BUDESONIDE 0.5 MG/2 ML AMPUL.NEB INH ×2 (07:10→18:14)
[2024-10-17] MEDS: ACET PO ×2 (08:15→21:29)
[2024-10-17] MEDS: HYDRO PO ×2 (08:15→21:29)
[2024-10-17] MEDS: AMIODARONE 200 MG TABLET PO (08:24)
[2024-10-17] MEDS: MULTIVITAMIN 1 TAB TABLET PO (08:25)
[2024-10-17] MEDS: ASCORBIC ACID 500 MG TABLET PO ×2 (08:25→20:23)
[2024-10-17] MEDS: FAMOTIDINE 20 MG TABLET PO ×2 (08:25→20:24)
[2024-10-17] MEDS: VITAMIN B COMPLEX PO (08:25)
[2024-10-17] MEDS: DEX/HYPRO/GLY ARTIFICAL TEARS 225 DROP/15 ML BTL BOTH EYES ×2 (08:25→20:24)
[2024-10-17] MEDS: SENNOSIDES 8.6 MG TABLET PO ×2 (08:25→20:24)
[2024-10-17] MEDS: ONDANSETRON HCL 4 MG TABLET PO (08:40)
--- NOTE | 2024-10-17 11:51 | PD.SAPROG ---
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 (2) Chronic respiratory failure with hypoxia and hypercapnia: Status: Chronic (3) Ventilator dependent: Status: Chronic (4) Congestive heart failure: Status: Chronic (5) Chronic obstructive pulmonary disease, unspecified: Status: Chronic (6) Atrial fibrillation: Status: Chronic (7) Tracheostomy in place: Status: Chronic (8) Chronic anemia: Status: Chronic SUBJECTIVE Fever:: none GI:: none Shortness of Breath:: unchanged GI:: nausea Pain:: none OBJECTIVE Most recent vital signs: Last Vital Signs Temp 97.1 F 10/17/24 06:00 Pulse 66 10/17/24 08:24 Resp 14 10/17/24 07:10 BP 163/65 H 10/17/24 08:24 Pulse Ox 98 10/17/24 07:10 O2 Del Method Mechanical Ventilation 10/17/24 06:00 FiO2 40 10/17/24 09:54 Neurological:: alert Speech:: nods head, mouths words and appropriate Answers questions:: yes Respiratory:: shallow breathing and rhonchi Cardiovascular: irregular Abdomen: soft Tracheostomy:: to ventilator Feeding per:: po ASSESSMENT & PLAN Assessment: stable. Tolerating ventilatory support. Not weanable because of generalized weakness. Tolerating feeding. Prognosis is very guarded. Patient aware. Tracheostomy revision done surgically. Psychotropics: Xanax 0.5 mgs bid has really done well to settle her anxiety. no side effects seen. She does not do well on lower titration of anxiety meds. No new issues. Had a bedside conversation on quality of life and end of life care at pt's request. Pt remains comfortable on current meds. 08-11-24 had a detailed conversation with pt's son about progressively worsening condition as expected in end stage COPD ventilator dependent and now more weak/inability to thrive. Code status was discussed and the extremely poor prognosis. 08-16-24 Pt's Hb was critical and hence ordered two units packed rbcs. Pt was in no distress. Post infusion levels are improved. No new complaints 09-23-24: She had an episode of being less responsive today but recovered quickly and blood gases checked stat which were normal ph 7.43, but PaO2 was low at 50mm Hg and saturations were good at 97%. General status quo maintained with expected worsening with limited prognosis. Comfort being achieved very well. Pt denies any new concern. Plan: Current treatment as well as ventilator settings reviewed and continued.
[2024-10-18] VITALS (12 sets, daily range): BP systolic 95–130; BP diastolic 55–74; PULSE 56–78; RESP 14–20; TEMP 36.1–37.2; O2SAT 98–99
[2024-10-18] MEDS: ONDANSETRON HCL 4 MG TABLET PO (00:46)
[2024-10-18] MEDS: IPRATROPIUM/ALBUTEROL 3 ML AMPUL.NEB INH ×6 (02:10→22:04)
[2024-10-18] MEDS: MIDODRINE 10 MG TABLET PO ×3 (05:12→17:30)
[2024-10-18] MEDS: ACETAMINOPHEN 325 MG TABLET 650 MG PO (06:16)
[2024-10-18] MEDS: BUDESONIDE 0.5 MG/2 ML AMPUL.NEB INH ×2 (06:17→18:17)
[2024-10-18] MEDS: ASCORBIC ACID 500 MG TABLET PO ×2 (09:40→21:16)
[2024-10-18] MEDS: SENNOSIDES 8.6 MG TABLET PO ×2 (09:45→21:16)
[2024-10-18] MEDS: FAMOTIDINE 20 MG TABLET PO ×2 (09:45→21:16)
[2024-10-18] MEDS: VITAMIN B COMPLEX PO (09:45)
[2024-10-18] MEDS: DEX/HYPRO/GLY ARTIFICAL TEARS 225 DROP/15 ML BTL BOTH EYES ×2 (09:45→21:16)
[2024-10-18] MEDS: AMIODARONE 200 MG TABLET PO (09:45)
[2024-10-18] MEDS: MULTIVITAMIN 1 TAB TABLET PO (09:45)
[2024-10-18] MEDS: ALPRAZolam 0.5 MG TABLET PO ×2 (13:15→21:16)
[2024-10-18] MEDS: guaiFENesin Liq 100 MG/5 ML LIQUID 300 MG PO ×2 (16:00)
[2024-10-18] MEDS: HYDRO PO (18:45)
[2024-10-18] MEDS: ACET PO (18:45)
[2024-10-19] VITALS (9 sets, daily range): BP systolic 117–174; BP diastolic 70–81; PULSE 59–77; RESP 14; TEMP 36.9; O2SAT 97–99
[2024-10-19] MEDS: IPRATROPIUM/ALBUTEROL 3 ML AMPUL.NEB INH ×5 (02:09→22:12)
[2024-10-19] MEDS: BUDESONIDE 0.5 MG/2 ML AMPUL.NEB INH ×2 (06:17→18:45)
[2024-10-19] MEDS: ALPRAZolam 0.5 MG TABLET PO ×2 (07:29→18:05)
[2024-10-19] MEDS: HYDRO PO ×2 (07:50→19:50)
[2024-10-19] MEDS: ACET PO ×2 (07:50→19:50)
[2024-10-19] MEDS: MULTIVITAMIN 1 TAB TABLET PO (07:59)
[2024-10-19] MEDS: ASCORBIC ACID 500 MG TABLET PO ×2 (07:59→20:00)
[2024-10-19] MEDS: SENNOSIDES 8.6 MG TABLET PO ×2 (07:59→20:00)
[2024-10-19] MEDS: DEX/HYPRO/GLY ARTIFICAL TEARS 225 DROP/15 ML BTL BOTH EYES ×2 (07:59→20:00)
[2024-10-19] MEDS: FAMOTIDINE 20 MG TABLET PO ×2 (07:59→20:00)
[2024-10-19] MEDS: VITAMIN B COMPLEX PO (07:59)
[2024-10-19] MEDS: AMIODARONE 200 MG TABLET PO (07:59)
[2024-10-19] MEDS: MIDODRINE 10 MG TABLET PO ×2 (11:19)
[2024-10-19 12:43] LABS: Collection Type, Urine Catheter
[2024-10-19 13:32] LABS: Amorphous Crystals,Urine Present (Absent); Bacteria,Urine 4+; Bilirubin,Urine Negative (Negative); Blood,Urine Trace (Negative); Glucose, Urine Negative (Negative); Ketones,Urine Negative (Negative); Leukocyte Esterase,Urine Positive (Negative); Nitrite,Urine Negative (Negative); Protein,Urine 1+ (Neg - Trace); RBC,Urine 2 /hpf (0-3); Specific Gravity,Urine 1.011 (1.001-1.035); Squamous Epithelial Cell,Urine 2 /hpf (0-5); Urobilinogen,Urine Negative mg/dL (0.0-1.0); WBC,Urine 45 /hpf (0-5)
[2024-10-19 13:37] LABS: Clarity,Urine Cloudy (Clear/Hazy); Color,Urine Lt-Yellow (Lt Yel-Yel); Culture Indicated,Urine Yes
[2024-10-19 13:53] LABS: Basophils % (Auto) 0 % (0-2.5); Eosinophils # (Auto) 0.1 Thou/mm3 (0.0-0.5); Eosinophils % (Auto) 0 % (0-10); Hematocrit 26.7 % (36.0-46.0); Immature Granulocytes % (Auto) 1 % (0-0); Immature Granulocytes Auto 0.13 Thou/mm3 (0.00-0.00); Lymphocytes # (Auto) 0.9 Thou/mm3 (1.0-4.8); Lymphocytes % (Auto) 6 % (10-50); Mean Corpuscular HGB Conc 29.6 g/dl (31.0-37.0); Mean Corpuscular Hemoglobin 31.9 pg (25.0-35.0); Mean Corpuscular Volume 108 fL (80-100); Monocytes # (Auto) 1.7 Thou/mm3 (0.0-0.8); Monocytes % (Auto) 11 % (0-12); Neutrophils # (Auto) 12.8 Thou/mm3 (1.8-7.7); Neutrophils % (Auto) 82 % (37-80); Nucleated Red Blood Cell % 0 /100 WBC (0); Platelet Count 179 Thou/mm3 (140-440); RDW Standard Deviation 72.1 fL (36.4-46.3); Red Blood Count 2.48 Miln/mm3 (4.00-5.20); White Blood Count 15.6 Thou/mm3 (3.6-11.0)
[2024-10-19 14:08] LABS: Hemoglobin 7.9 g/dL (12.0-16.0)
--- NOTE | 2024-10-19 16:01 | PC.NURSE ---
ticed that resident is not on her usual self, and resident looks pale and anxious MD. made aware and order to do CBC stat and urinalysis, received WBC on blood was 15.6, Hgb was 7.9, urine wbc was 45, . aware no new order received, we will continue to monitor.
[2024-10-19] MEDS: ACETAMINOPHEN 325 MG TABLET 650 MG PO ×2 (17:40)
[2024-10-19] MEDS: guaiFENesin Liq 100 MG/5 ML LIQUID 300 MG PO ×2 (17:40)
[2024-10-20] VITALS (12 sets, daily range): BP systolic 106–117; BP diastolic 64–75; PULSE 56–82; RESP 14–19; TEMP 36.3–36.9; O2SAT 98–99; BMI 16.5
[2024-10-20] MEDS: guaiFENesin Liq 100 MG/5 ML LIQUID 300 MG PO ×4 (00:10→22:28)
[2024-10-20] MEDS: MIDODRINE 10 MG TABLET PO ×3 (00:11→17:27)
[2024-10-20] MEDS: IPRATROPIUM/ALBUTEROL 3 ML AMPUL.NEB INH ×6 (02:10→22:00)
[2024-10-20] MEDS: ALPRAZolam 0.5 MG TABLET PO ×3 (04:25→19:25)
[2024-10-20] MEDS: BUDESONIDE 0.5 MG/2 ML AMPUL.NEB INH ×2 (07:10→18:00)
--- NOTE | 2024-10-20 07:58 | PD.SAPROG ---
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 (2) Chronic respiratory failure with hypoxia and hypercapnia: Status: Chronic (3) Ventilator dependent: Status: Chronic (4) Congestive heart failure: Status: Chronic (5) Chronic obstructive pulmonary disease, unspecified: Status: Chronic (6) Atrial fibrillation: Status: Chronic (7) Tracheostomy in place: Status: Chronic (8) Chronic anemia: Status: Chronic SUBJECTIVE Fever:: none GI:: none Shortness of Breath:: unchanged GI:: nausea Pain:: none OBJECTIVE Most recent vital signs: Last Vital Signs Temp 97.4 F 10/20/24 06:00 Pulse 62 10/20/24 06:00 Resp 14 10/20/24 06:00 BP 113/70 10/20/24 06:00 Pulse Ox 99 10/20/24 06:00 O2 Del Method Mechanical Ventilation 10/20/24 06:00 FiO2 40 10/20/24 00:55 Neurological:: alert Speech:: nods head, mouths words and appropriate Answers questions:: yes Respiratory:: shallow breathing and rhonchi Cardiovascular: irregular Abdomen: soft Tracheostomy:: to ventilator Feeding per:: po ASSESSMENT & PLAN Assessment: stable. Tolerating ventilatory support. Not weanable because of generalized weakness. Tolerating feeding. Prognosis is very guarded. Patient aware. Tracheostomy revision done surgically. Psychotropics: Xanax 0.5 mgs bid has really done well to settle her anxiety. no side effects seen. She does not do well on lower titration of anxiety meds. No new issues. Had a bedside conversation on quality of life and end of life care at pt's request. Pt remains comfortable on current meds. 08-11-24 had a detailed conversation with pt's son about progressively worsening condition as expected in end stage COPD ventilator dependent and now more weak/inability to thrive. Code status was discussed and the extremely poor prognosis. 08-16-24 Pt's Hb was critical and hence ordered two units packed rbcs. Pt was in no distress. Post infusion levels are improved. No new complaints 09-23-24: She had an episode of being less responsive today but recovered quickly and blood gases checked stat which were normal ph 7.43, but PaO2 was low at 50mm Hg and saturations were good at 97%. General status quo maintained with expected worsening with limited prognosis. Comfort being achieved very well. Pt denies any new concern. Plan: Current treatment as well as ventilator settings reviewed and continued.
[2024-10-20] MEDS: ASCORBIC ACID 500 MG TABLET PO ×2 (10:00→21:00)
[2024-10-20] MEDS: SENNOSIDES 8.6 MG TABLET PO ×2 (10:00→21:00)
[2024-10-20] MEDS: VITAMIN B COMPLEX PO (10:00)
[2024-10-20] MEDS: AMIODARONE 200 MG TABLET PO (10:00)
[2024-10-20] MEDS: ACETAMINOPHEN 325 MG TABLET 650 MG PO (10:00)
[2024-10-20] MEDS: FAMOTIDINE 20 MG TABLET PO ×2 (10:00→21:00)
[2024-10-20] MEDS: MULTIVITAMIN 1 TAB TABLET PO (10:00)
[2024-10-20] MEDS: DEX/HYPRO/GLY ARTIFICAL TEARS 225 DROP/15 ML BTL BOTH EYES ×2 (10:00→21:00)
[2024-10-20] MEDS: HYDRO PO (23:20)
[2024-10-20] MEDS: ACET PO (23:20)
[2024-10-21] VITALS (12 sets, daily range): BP systolic 95–192; BP diastolic 49–82; PULSE 55–88; RESP 14–16; TEMP 36.1–36.5; O2SAT 95–100
[2024-10-21] MEDS: IPRATROPIUM/ALBUTEROL 3 ML AMPUL.NEB INH ×6 (02:15→22:00)
[2024-10-21] MEDS: ALPRAZolam 0.5 MG TABLET PO ×3 (04:30→21:35)
[2024-10-21] MEDS: MIDODRINE 10 MG TABLET PO ×2 (06:02→17:20)
[2024-10-21] MEDS: BUDESONIDE 0.5 MG/2 ML AMPUL.NEB INH ×2 (07:10→18:15)
[2024-10-21] MEDS: AMIODARONE 200 MG TABLET PO (08:53)
[2024-10-21] MEDS: VITAMIN B COMPLEX PO (08:54)
[2024-10-21] MEDS: SENNOSIDES 8.6 MG TABLET PO ×2 (08:54→21:36)
[2024-10-21] MEDS: ASCORBIC ACID 500 MG TABLET PO ×2 (08:54→21:52)
[2024-10-21] MEDS: DEX/HYPRO/GLY ARTIFICAL TEARS 225 DROP/15 ML BTL BOTH EYES ×2 (08:54→21:00)
[2024-10-21] MEDS: MULTIVITAMIN 1 TAB TABLET PO (08:54)
[2024-10-21] MEDS: FAMOTIDINE 20 MG TABLET PO ×2 (08:54→21:36)
[2024-10-21] MEDS: guaiFENesin Liq 100 MG/5 ML LIQUID 300 MG PO (10:25)
[2024-10-21] MEDS: HYDRO PO (10:35)
[2024-10-21] MEDS: ACET PO (10:35)
--- NOTE | 2024-10-21 13:33 | PC.NURSE ---
Reviewed recent UA cultures with . after reviewing MD stated it micro-roganisms is colonized. No further orders given. Resident remains a symptomatic. No C/O offered at this time. Will continue to monitor.
[2024-10-22] VITALS (10 sets, daily range): BP systolic 89–123; BP diastolic 56–76; PULSE 62–79; RESP 14–17; TEMP 36.2–36.5; O2SAT 98–100
[2024-10-22] MEDS: IPRATROPIUM/ALBUTEROL 3 ML AMPUL.NEB INH ×6 (02:00→22:01)
[2024-10-22] MEDS: MIDODRINE 10 MG TABLET PO ×3 (05:12→17:32)
[2024-10-22] MEDS: BUDESONIDE 0.5 MG/2 ML AMPUL.NEB INH ×2 (06:17→18:15)
[2024-10-22] MEDS: MULTIVITAMIN 1 TAB TABLET PO (09:03)
[2024-10-22] MEDS: VITAMIN B COMPLEX PO (09:03)
[2024-10-22] MEDS: FAMOTIDINE 20 MG TABLET PO ×2 (09:03→21:00)
[2024-10-22] MEDS: ASCORBIC ACID 500 MG TABLET PO ×2 (09:03→21:00)
[2024-10-22] MEDS: DEX/HYPRO/GLY ARTIFICAL TEARS 225 DROP/15 ML BTL BOTH EYES ×2 (09:03→21:00)
[2024-10-22] MEDS: AMIODARONE 200 MG TABLET PO (09:03)
[2024-10-22] MEDS: SENNOSIDES 8.6 MG TABLET PO ×2 (09:03→21:00)
[2024-10-22] MEDS: MAG HYDROX/ALUMINUM HYD/SIMETH 355 ML BTL 30 ML PO (09:03)
--- NOTE | 2024-10-22 11:18 | PC.IP ---
IP Note: Results of ordered CBC and Urine culture show elevation of WBC's 15.6; afebrile. Urine culture=Klebsiella oxytoca>100,000 Col/ml. MD final is colonization and no treatment ordered. Will continue to observe resident for any further increased malaise, febrile episodes, respiratory distress.
[2024-10-22] MEDS: ALPRAZolam 0.5 MG TABLET PO ×2 (11:41→20:14)
[2024-10-22] MEDS: ONDANSETRON HCL 4 MG TABLET PO (12:16)
--- NOTE | 2024-10-22 14:31 | PC.SS ---
Room visit: resident is laying in bed with head of the bed elevated with call light properly placed with no signs of distress. She is alert and oriented, she is able to make needs known. She and her son Francisco Javier Blakely make decisions together. Resident remains on ventilator with trach in place. Resident will remain in current care and will have all subacute care needs met by staff. This SSD will continue to make daily contact with resident and monitor for changes in mood and behavior.
[2024-10-22] MEDS: ACETAMINOPHEN 325 MG TABLET 650 MG PO (15:36)
[2024-10-22] MEDS: guaiFENesin Liq 100 MG/5 ML LIQUID 300 MG PO (15:36)
[2024-10-22] MEDS: ACET PO (22:58)
[2024-10-22] MEDS: HYDRO PO (22:58)
[2024-10-23] MEDS: ONDANSETRON HCL 4 MG TABLET PO
[2024-10-23 02:00] VITALS: PULSE 72; PULSE 76; RESP 19; O2SAT 97; O2SAT 98
[2024-10-23] MEDS: IPRATROPIUM/ALBUTEROL 3 ML AMPUL.NEB INH ×3 (02:00→22:05)
[2024-10-23] MEDS: guaiFENesin Liq 100 MG/5 ML LIQUID 300 MG PO ×3 (02:42→23:07)
[2024-10-23] MEDS: ALPRAZolam 0.5 MG TABLET PO (03:43)
[2024-10-23 04:15] VITALS: BP 168/67; RESP 14; TEMP 35.9; O2SAT 79
--- NOTE | 2024-10-23 04:36 | PC.NURSE ---
RESIDENT DIAPHORETIC BLUISH, 02 SAT 79%, SOB. CALLED RT AT BEDSIDE, RT INFLATED TRACH CUFF. NOTED OXYGEN SATURATION BEGAN TO INCREASE. RESIDENT EYES CLOSED, ASLEEP. NOT BLUISH IN COLOR, BUT PALE. RESIDENT COMPLAIN OF SOB. 02 SAT INCREASED TO 95%. INFORMED RESIDENT TO BE SENT TO ER FOR FUTHER EVALUATION AND RESIDENT AGREED. RESIDENT TAKEN TO ER VIA BED, WITH RT MELISSA, BENNY CHADWICK, AND BRENT THOMPSON.
--- NOTE | 2024-10-23 04:43 | PC.RT ---
RT called to room due to desats, upon entry pt was sating 80% on 50% fio2. Fio2 increased to 100%. Trach cuff pressure increased to MOV, spo2 increased to 100%, titrated oxygen back to 40%. Pt remained 100% spo2 and stated she did not feel SOB. Pt was transferred to ED per injection wax molder
--- NOTE | 2024-10-23 14:19 | PC.NURSE ---
Resident came back from ER at 13:55 via bed with diagnosis of Pneumonia. Alert and responsive. Respiration even and unlabored. Denies any pain or discomfort. Resident will be on Cefdinir 300 mg po every 12 hours for PNA, doctor Martin made aware. Tried to call resident's son but unable to get hold of him. Left message to call us back
--- NOTE | 2024-10-23 14:45 | PC.NURSE ---
Resident's son Walt called back and made him aware that resident is back in the unit and will be on antibiotic
[2024-10-23 14:55] VITALS: PULSE 71; RESP 16; O2SAT 100
[2024-10-23] MEDS: ACETAMINOPHEN 325 MG TABLET 650 MG PO (15:00)
[2024-10-23 16:07] VITALS: PULSE 74; RESP 16; O2SAT 98
[2024-10-23 18:00] VITALS: BP 131/65; PULSE 80; RESP 14; TEMP 37.1; O2SAT 100
[2024-10-23] MEDS: NON-FORMULARY *SEE COMMENTS* 1 EA EA 300 EA PO (19:00)
[2024-10-23] MEDS: MAGNESIUM HYDROXIDE 30 ML ORAL SUSP ML PO (20:00)
[2024-10-23] MEDS: DEX/HYPRO/GLY ARTIFICAL TEARS 225 DROP/15 ML BTL BOTH EYES (21:02)
[2024-10-23] MEDS: ASCORBIC ACID 500 MG TABLET PO (21:02)
[2024-10-23] MEDS: SENNOSIDES 8.6 MG TABLET PO (21:03)
[2024-10-23] MEDS: FAMOTIDINE 20 MG TABLET PO (21:03)
[2024-10-23 22:05] VITALS: PULSE 71; RESP 17; O2SAT 98
[2024-10-23] MEDS: MIDODRINE 10 MG TABLET PO (23:06)
[2024-10-24] VITALS (10 sets, daily range): BP systolic 111–159; BP diastolic 60–83; PULSE 70–89; RESP 14–23; TEMP 36.4–36.8; O2SAT 98–100
[2024-10-24] MEDS: ACETAMINOPHEN 325 MG TABLET 650 MG PO ×2 (00:41→09:47)
[2024-10-24] MEDS: IPRATROPIUM/ALBUTEROL 3 ML AMPUL.NEB INH ×6 (02:10→22:20)
[2024-10-24] MEDS: ALPRAZolam 0.5 MG TABLET PO ×3 (04:04→21:25)
[2024-10-24] MEDS: BUDESONIDE 0.5 MG/2 ML AMPUL.NEB INH ×2 (06:25→18:05)
[2024-10-24] MEDS: NON-FORMULARY *SEE COMMENTS* 1 EA EA 300 EA PO ×2 (06:26→17:34)
--- NOTE | 2024-10-24 06:36 | PC.NURSE ---
Patient on Cefdinir johnnie 250/5ml. 6ml po every 12hrs for 10 days for pneumonia. Patient tolerated antibiotic well no adverse reaction noted. Resident alert and oriented x4 and able to make needs known. Patient had no complaint or discomfort after administration. Resident routinely checked on by nursing staff. Call light was left with in reach.
[2024-10-24] MEDS: MULTIVITAMIN 1 TAB TABLET PO (09:00)
[2024-10-24] MEDS: ASCORBIC ACID 500 MG TABLET PO ×2 (09:00→21:26)
[2024-10-24] MEDS: SENNOSIDES 8.6 MG TABLET PO ×2 (09:00→21:27)
[2024-10-24] MEDS: VITAMIN B COMPLEX PO (09:00)
[2024-10-24] MEDS: AMIODARONE 200 MG TABLET PO (09:00)
[2024-10-24] MEDS: DEX/HYPRO/GLY ARTIFICAL TEARS 225 DROP/15 ML BTL BOTH EYES ×2 (09:00→21:27)
[2024-10-24] MEDS: FAMOTIDINE 20 MG TABLET PO ×2 (09:00→21:27)
[2024-10-24] MEDS: guaiFENesin Liq 100 MG/5 ML LIQUID 300 MG PO ×2 (11:24→21:26)
[2024-10-24] MEDS: MIDODRINE 10 MG TABLET PO ×2 (12:00→17:34)
[2024-10-24] MEDS: HYDRO PO (19:23)
[2024-10-24] MEDS: ACET PO (19:23)
--- NOTE | 2024-10-24 21:38 | PD.SAPROG ---
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 (2) Chronic respiratory failure with hypoxia and hypercapnia: Status: Chronic (3) Ventilator dependent: Status: Chronic (4) Congestive heart failure: Status: Chronic (5) Chronic obstructive pulmonary disease, unspecified: Status: Chronic (6) Atrial fibrillation: Status: Chronic (7) Tracheostomy in place: Status: Chronic (8) Chronic anemia: Status: Chronic SUBJECTIVE Fever:: none GI:: none Shortness of Breath:: unchanged GI:: nausea Pain:: none OBJECTIVE Most recent vital signs: Last Vital Signs Temp 97.6 F 10/24/24 12:00 Pulse 70 10/24/24 14:15 Resp 14 10/24/24 14:15 BP 120/60 10/24/24 12:00 Pulse Ox 99 10/24/24 14:15 O2 Del Method Mechanical Ventilation 10/24/24 12:00 FiO2 40 10/24/24 14:15 Neurological:: alert Speech:: nods head, mouths words and appropriate Answers questions:: yes Respiratory:: shallow breathing and rhonchi Cardiovascular: irregular Abdomen: soft Tracheostomy:: to ventilator Feeding per:: po ASSESSMENT & PLAN Assessment: stable. Tolerating ventilatory support. Not weanable because of generalized weakness. Tolerating feeding. Prognosis is very guarded. Patient aware. Tracheostomy revision done surgically. Psychotropics: Xanax 0.5 mgs bid has really done well to settle her anxiety. no side effects seen. She does not do well on lower titration of anxiety meds. No new issues. Had a bedside conversation on quality of life and end of life care at pt's request. Pt remains comfortable on current meds. 08-11-24 had a detailed conversation with pt's son about progressively worsening condition as expected in end stage COPD ventilator dependent and now more weak/inability to thrive. Code status was discussed and the extremely poor prognosis. 08-16-24 Pt's Hb was critical and hence ordered two units packed rbcs. Pt was in no distress. Post infusion levels are improved. No new complaints 09-23-24: She had an episode of being less responsive today but recovered quickly and blood gases checked stat which were normal ph 7.43, but PaO2 was low at 50mm Hg and saturations were good at 97%. Recently transferred to the ER for respiratory distress and dropping O2 saturations. Received back with diagnosis of Pneumonia and on antibiotics. stable and no fever. Plan: Current treatment as well as ventilator settings reviewed and continued.
[2024-10-25] VITALS (13 sets, daily range): BP systolic 103–135; BP diastolic 65–76; PULSE 64–81; RESP 14–18; TEMP 36–36.6; O2SAT 98–100
[2024-10-25] MEDS: IPRATROPIUM/ALBUTEROL 3 ML AMPUL.NEB INH ×6 (02:00→22:00)
[2024-10-25] MEDS: NON-FORMULARY *SEE COMMENTS* 1 EA EA 300 EA PO ×2 (05:39→17:37)
[2024-10-25] MEDS: BUDESONIDE 0.5 MG/2 ML AMPUL.NEB INH ×2 (06:52→18:30)
[2024-10-25] MEDS: AMIODARONE 200 MG TABLET PO (08:56)
[2024-10-25] MEDS: ASCORBIC ACID 500 MG TABLET PO ×2 (08:57→21:42)
[2024-10-25] MEDS: DEX/HYPRO/GLY ARTIFICAL TEARS 225 DROP/15 ML BTL BOTH EYES ×2 (08:57→21:42)
[2024-10-25] MEDS: FAMOTIDINE 20 MG TABLET PO ×2 (08:57→21:42)
[2024-10-25] MEDS: MULTIVITAMIN 1 TAB TABLET PO (08:57)
[2024-10-25] MEDS: ALPRAZolam 0.5 MG TABLET PO ×2 (08:58→21:42)
[2024-10-25] MEDS: VITAMIN B COMPLEX PO (08:58)
[2024-10-25] MEDS: SENNOSIDES 8.6 MG TABLET PO ×2 (08:58→21:42)
[2024-10-25] MEDS: guaiFENesin Liq 100 MG/5 ML LIQUID 300 MG PO ×2 (08:59→21:41)
[2024-10-25] MEDS: ACETAMINOPHEN 325 MG TABLET 650 MG PO (09:04)
--- NOTE | 2024-10-25 11:40 | PC.IP ---
IP Note: Resident transfered to ED on 10/23/24 for desaturation; CTA done and treatment for PNA with Cefdinir 300mg per GT every 12 hours x 10 days. End dose 11/02/24.
[2024-10-25] MEDS: MIDODRINE 10 MG TABLET PO ×2 (12:26→17:29)
--- NOTE | 2024-10-25 17:38 | PC.NURSE ---
Abt therapy given at 1800. tolerated well. No adverse reactions noted. Will continue to monitor.
[2024-10-25] MEDS: HYDRO PO (23:20)
[2024-10-25] MEDS: ACET PO (23:20)
[2024-10-26] VITALS (13 sets, daily range): BP systolic 98–159; BP diastolic 59–78; PULSE 58–89; RESP 14–18; TEMP 36.1–36.6; O2SAT 95–100
[2024-10-26] MEDS: IPRATROPIUM/ALBUTEROL 3 ML AMPUL.NEB INH ×6 (02:12→23:30)
[2024-10-26] MEDS: ACETAMINOPHEN 325 MG TABLET 650 MG PO ×2 (04:30→18:50)
[2024-10-26] MEDS: MIDODRINE 10 MG TABLET PO ×2 (05:01)
[2024-10-26] MEDS: NON-FORMULARY *SEE COMMENTS* 1 EA EA 300 EA PO ×2 (05:43→18:55)
[2024-10-26] MEDS: BUDESONIDE 0.5 MG/2 ML AMPUL.NEB INH ×2 (06:04→18:00)
[2024-10-26] MEDS: AMIODARONE 200 MG TABLET PO (09:06)
[2024-10-26] MEDS: ASCORBIC ACID 500 MG TABLET PO ×2 (09:06→21:06)
[2024-10-26] MEDS: SENNOSIDES 8.6 MG TABLET PO ×2 (09:07→21:06)
[2024-10-26] MEDS: MULTIVITAMIN 1 TAB TABLET PO (09:07)
[2024-10-26] MEDS: DEX/HYPRO/GLY ARTIFICAL TEARS 225 DROP/15 ML BTL BOTH EYES ×2 (09:07→21:06)
[2024-10-26] MEDS: VITAMIN B COMPLEX PO (09:07)
[2024-10-26] MEDS: FAMOTIDINE 20 MG TABLET PO ×2 (09:07→21:06)
[2024-10-26] MEDS: ALPRAZolam 0.5 MG TABLET PO ×2 (11:12→22:30)
[2024-10-26] MEDS: guaiFENesin Liq 100 MG/5 ML LIQUID 300 MG PO (14:29)
[2024-10-26] MEDS: ACET PO (14:50)
[2024-10-26] MEDS: HYDRO PO (14:50)
--- NOTE | 2024-10-26 14:51 | PC.RT ---
1400 ROUTINE TRACH CHANGE ATTEMPTED AT THIS TIME WITHOUT SUCCESS.WHEN TRYING TO PULL CURRENT TRACH IT WAS MET WITH RESITANCE AT THE [facility]. RT TIKI AND VANESSA BOTH ATTEMPTED TO REMOVE TRACH WITHOUT SUCCESS. NO FURTHER ATTEMPTS WERE MADE AT THIS TIME. ABDIAZIZ SPEAK TO ANOTHER RT DAVE TO COMFIRM RESISTANCE AND WILL CONTACT DR ROPER
--- NOTE | 2024-10-26 15:37 | PC.NURSE ---
RT. try to changed the trach and she cant pull out the trach, . made aware and order to refer to Dr. Egan for possible trach revision.
[2024-10-27] VITALS (9 sets, daily range): BP systolic 119–135; BP diastolic 67–73; PULSE 67–84; RESP 15–18; TEMP 36.3–36.8; O2SAT 97–100
[2024-10-27] MEDS: MIDODRINE 10 MG TABLET PO ×2 (00:21→12:47)
[2024-10-27] MEDS: IPRATROPIUM/ALBUTEROL 3 ML AMPUL.NEB INH ×6 (02:00→21:59)
[2024-10-27] MEDS: NON-FORMULARY *SEE COMMENTS* 1 EA EA 300 EA PO ×2 (05:50→17:41)
[2024-10-27] MEDS: BUDESONIDE 0.5 MG/2 ML AMPUL.NEB INH ×2 (07:30→18:19)
[2024-10-27] MEDS: ALPRAZolam 0.5 MG TABLET PO ×2 (08:00→20:28)
[2024-10-27] MEDS: guaiFENesin Liq 100 MG/5 ML LIQUID 300 MG PO ×2 (08:00→20:00)
[2024-10-27] MEDS: ASCORBIC ACID 500 MG TABLET PO ×2 (08:06→20:29)
[2024-10-27] MEDS: DEX/HYPRO/GLY ARTIFICAL TEARS 225 DROP/15 ML BTL BOTH EYES ×2 (08:06→20:29)
[2024-10-27] MEDS: AMIODARONE 200 MG TABLET PO (08:06)
[2024-10-27] MEDS: FAMOTIDINE 20 MG TABLET PO ×2 (08:06→20:29)
[2024-10-27] MEDS: SENNOSIDES 8.6 MG TABLET PO ×2 (08:07→20:28)
[2024-10-27] MEDS: VITAMIN B COMPLEX PO (08:07)
[2024-10-27] MEDS: MULTIVITAMIN 1 TAB TABLET PO (08:07)
--- NOTE | 2024-10-27 10:22 | PC.NURSE ---
Resident with an order for possible trach revision. Resident needs prior authorization as per billing. Sent order to billing (Janet)
--- NOTE | 2024-10-27 13:48 | PC.SS ---
Room visit: Resident is laying in bed with head of the bed elevated with call light properly placed with no signs of distress. Resident remains on ventilator with trach in place and GT for medication and nutrition. Resident is able to make needs known, his decision maker is her healthcare proxy son Rafael Blakely. Resident will remain in current care and will continue to have all subacute care needs met by staff. This SSD will continue to make daily room visits.
[2024-10-27] MEDS: HYDRO PO (15:00)
[2024-10-27] MEDS: ACET PO (15:00)
--- NOTE | 2024-10-27 15:30 | PC.NURSE ---
Received a call from Janet notifying this proposal lead writer that it's okay for resident to be seen by Dr Egan. Tried to call MD but unable to get hold of him. Left message on his voicemail to call us back. Tried to call MD's clinic but it goes to answering service.
--- NOTE | 2024-10-27 18:40 | PC.NURSE ---
Resident continues on antibiotics for PNA. No adverse reactions noted. Continues to complain of SOB, but O2 sats remain stable at >98%. HHN txs administered with good effect. Suctioned as needed. Continue to observe.
[2024-10-28] VITALS (10 sets, daily range): BP systolic 127–139; BP diastolic 66–73; PULSE 68–86; RESP 14–21; TEMP 36.5–37.1; O2SAT 98–100
[2024-10-28] MEDS: IPRATROPIUM/ALBUTEROL 3 ML AMPUL.NEB INH ×6 (02:00→22:00)
[2024-10-28] MEDS: HYDRO PO ×2 (02:02→09:30)
[2024-10-28] MEDS: ACET PO ×2 (02:02→09:30)
[2024-10-28] MEDS: NON-FORMULARY *SEE COMMENTS* 1 EA EA 300 EA PO ×2 (06:09→17:46)
[2024-10-28] MEDS: ACETAMINOPHEN 325 MG TABLET 650 MG PO ×2 (06:09→16:30)
[2024-10-28] MEDS: BUDESONIDE 0.5 MG/2 ML AMPUL.NEB INH ×2 (06:22→18:50)
[2024-10-28] MEDS: ALPRAZolam 0.5 MG TABLET PO ×2 (06:23→16:30)
[2024-10-28] MEDS: AMIODARONE 200 MG TABLET PO (08:44)
[2024-10-28] MEDS: DEX/HYPRO/GLY ARTIFICAL TEARS 225 DROP/15 ML BTL BOTH EYES ×2 (08:45→20:57)
[2024-10-28] MEDS: ASCORBIC ACID 500 MG TABLET PO ×2 (08:45→20:57)
[2024-10-28] MEDS: MULTIVITAMIN 1 TAB TABLET PO (08:46)
[2024-10-28] MEDS: FAMOTIDINE 20 MG TABLET PO ×2 (08:46→20:57)
[2024-10-28] MEDS: SENNOSIDES 8.6 MG TABLET PO ×2 (08:47→20:57)
[2024-10-28] MEDS: VITAMIN B COMPLEX PO (08:47)
[2024-10-28] MEDS: guaiFENesin Liq 100 MG/5 ML LIQUID 300 MG PO (12:00)
[2024-10-28] MEDS: MIDODRINE 10 MG TABLET PO (12:41)
--- NOTE | 2024-10-28 21:44 | PD.SAPROG ---
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 (2) Chronic respiratory failure with hypoxia and hypercapnia: Status: Chronic (3) Ventilator dependent: Status: Chronic (4) Congestive heart failure: Status: Chronic (5) Chronic obstructive pulmonary disease, unspecified: Status: Chronic (6) Atrial fibrillation: Status: Chronic (7) Tracheostomy in place: Status: Chronic (8) Chronic anemia: Status: Chronic SUBJECTIVE Fever:: none GI:: none Shortness of Breath:: unchanged GI:: nausea Pain:: none OBJECTIVE Most recent vital signs: Last Vital Signs Temp 97.7 F 10/28/24 06:00 Pulse 74 10/28/24 12:27 Resp 14 10/28/24 06:22 BP 129/66 10/28/24 08:44 Pulse Ox 98 10/28/24 12:27 O2 Del Method Mechanical Ventilation 10/28/24 06:00 FiO2 40 10/28/24 12:27 Neurological:: alert Speech:: nods head, mouths words and appropriate Answers questions:: yes Respiratory:: shallow breathing and rhonchi Cardiovascular: irregular Abdomen: soft Tracheostomy:: to ventilator Feeding per:: po ASSESSMENT & PLAN Assessment: stable. Tolerating ventilatory support. Not weanable because of generalized weakness. Tolerating feeding. Prognosis is very guarded. Patient aware. Tracheostomy revision done surgically. Psychotropics: Xanax 0.5 mgs bid has really done well to settle her anxiety. no side effects seen. She does not do well on lower titration of anxiety meds. No new issues. Had a bedside conversation on quality of life and end of life care at pt's request. Pt remains comfortable on current meds. 08-11-24 had a detailed conversation with pt's son about progressively worsening condition as expected in end stage COPD ventilator dependent and now more weak/inability to thrive. Code status was discussed and the extremely poor prognosis. 08-16-24 Pt's Hb was critical and hence ordered two units packed rbcs. Pt was in no distress. Post infusion levels are improved. No new complaints 09-23-24: She had an episode of being less responsive today but recovered quickly and blood gases checked stat which were normal ph 7.43, but PaO2 was low at 50mm Hg and saturations were good at 97%. Recently transferred to the ER for respiratory distress and dropping O2 saturations. Received back with diagnosis of Pneumonia and on antibiotics. stable and no fever. Regular tracheostomy change was difficult for the respiratroy tech and hence request to Gen. surgeon made. Plan: Current treatment as well as ventilator settings reviewed and continued.
[2024-10-29] VITALS (11 sets, daily range): BP systolic 117–131; BP diastolic 65–69; PULSE 68–89; RESP 14–20; TEMP 36–36.3; O2SAT 98–100
[2024-10-29] MEDS: ALPRAZolam 0.5 MG TABLET PO ×3 (00:30→22:04)
[2024-10-29] MEDS: guaiFENesin Liq 100 MG/5 ML LIQUID 300 MG PO ×2 (00:31→11:30)
[2024-10-29] MEDS: ACETAMINOPHEN 325 MG TABLET 650 MG PO (01:43)
[2024-10-29] MEDS: IPRATROPIUM/ALBUTEROL 3 ML AMPUL.NEB INH ×6 (03:45→22:06)
[2024-10-29] MEDS: MIDODRINE 10 MG TABLET PO ×3 (05:18→17:30)
[2024-10-29] MEDS: NON-FORMULARY *SEE COMMENTS* 1 EA EA 300 EA PO ×2 (05:18→17:30)
[2024-10-29] MEDS: BUDESONIDE 0.5 MG/2 ML AMPUL.NEB INH ×2 (06:17→19:40)
[2024-10-29] MEDS: AMIODARONE 200 MG TABLET PO (09:14)
[2024-10-29] MEDS: ASCORBIC ACID 500 MG TABLET PO ×2 (09:15→21:00)
[2024-10-29] MEDS: DEX/HYPRO/GLY ARTIFICAL TEARS 225 DROP/15 ML BTL BOTH EYES ×2 (09:15→21:03)
[2024-10-29] MEDS: FAMOTIDINE 20 MG TABLET PO ×2 (09:15→21:03)
[2024-10-29] MEDS: MULTIVITAMIN 1 TAB TABLET PO (09:15)
[2024-10-29] MEDS: VITAMIN B COMPLEX PO (09:17)
[2024-10-29] MEDS: SENNOSIDES 8.6 MG TABLET PO ×2 (09:17→21:03)
[2024-10-29] MEDS: MAGNESIUM HYDROXIDE 30 ML ORAL SUSP ML PO ×2 (17:00→17:30)
[2024-10-29] MEDS: HYDRO PO (17:30)
[2024-10-29] MEDS: ACET PO (17:30)
[2024-10-30] VITALS (13 sets, daily range): BP systolic 93–120; BP diastolic 60–70; PULSE 60–87; RESP 14–23; TEMP 36.3–36.7; O2SAT 94–100
[2024-10-30] MEDS: IPRATROPIUM/ALBUTEROL 3 ML AMPUL.NEB INH ×6 (02:49→22:05)
[2024-10-30] MEDS: BISACODYL 10 MG SUPP.RECT PR (04:00)
[2024-10-30] MEDS: NON-FORMULARY *SEE COMMENTS* 1 EA EA 300 EA PO ×2 (06:01→18:23)
[2024-10-30] MEDS: MIDODRINE 10 MG TABLET PO ×3 (06:01→17:49)
[2024-10-30] MEDS: BUDESONIDE 0.5 MG/2 ML AMPUL.NEB INH ×2 (06:07→17:27)
[2024-10-30] MEDS: VITAMIN B COMPLEX PO (09:50)
[2024-10-30] MEDS: FAMOTIDINE 20 MG TABLET PO ×2 (09:50→21:05)
[2024-10-30] MEDS: ASCORBIC ACID 500 MG TABLET PO ×2 (09:50→21:04)
[2024-10-30] MEDS: DEX/HYPRO/GLY ARTIFICAL TEARS 225 DROP/15 ML BTL BOTH EYES ×2 (09:50→21:04)
[2024-10-30] MEDS: MULTIVITAMIN 1 TAB TABLET PO (09:50)
[2024-10-30] MEDS: SENNOSIDES 8.6 MG TABLET PO ×2 (09:50→21:05)
[2024-10-30] MEDS: ALPRAZolam 0.5 MG TABLET PO ×2 (10:00→18:25)
[2024-10-30] MEDS: guaiFENesin Liq 100 MG/5 ML LIQUID 300 MG PO ×2 (11:20→19:00)
[2024-10-30] MEDS: ACETAMINOPHEN 325 MG TABLET 650 MG PO (15:15)
[2024-10-30] MEDS: SODIUM PHOSPHATE,MONO-DIBASIC 133 ML ENEMA PR (17:50)
--- NOTE | 2024-10-30 18:32 | PC.NURSE ---
Resident continues on antibiotics for PNA. No adverse reactions noted. Continues to complain of SOB, HHN txs administered with good effect. Xanax administered x2 for anxiety/SOB. Suctioned as needed. Continue to observe.
--- NOTE | 2024-10-30 19:23 | PD.SAPROG ---
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 (2) Chronic respiratory failure with hypoxia and hypercapnia: Status: Chronic (3) Ventilator dependent: Status: Chronic (4) Congestive heart failure: Status: Chronic (5) Chronic obstructive pulmonary disease, unspecified: Status: Chronic (6) Atrial fibrillation: Status: Chronic (7) Tracheostomy in place: Status: Chronic (8) Chronic anemia: Status: Chronic SUBJECTIVE Fever:: none GI:: none Shortness of Breath:: unchanged GI:: nausea Pain:: none OBJECTIVE Most recent vital signs: Last Vital Signs Temp 97.8 F 10/30/24 18:00 Pulse 78 10/30/24 18:00 Resp 15 10/30/24 18:00 BP 110/66 10/30/24 18:00 Pulse Ox 100 10/30/24 18:00 O2 Del Method Mechanical Ventilation 10/30/24 18:00 FiO2 40 10/30/24 17:27 Neurological:: alert Speech:: nods head, mouths words and appropriate Answers questions:: yes Respiratory:: shallow breathing and rhonchi Cardiovascular: irregular Abdomen: soft Tracheostomy:: to ventilator Feeding per:: po ASSESSMENT & PLAN Assessment: stable. Tolerating ventilatory support. Not weanable because of generalized weakness. Tolerating feeding. Prognosis is very guarded. Patient aware. Tracheostomy revision done surgically. Psychotropics: Xanax 0.5 mgs bid has really done well to settle her anxiety. no side effects seen. She does not do well on lower titration of anxiety meds. No new issues. Had a bedside conversation on quality of life and end of life care at pt's request. Pt remains comfortable on current meds. 08-11-24 had a detailed conversation with pt's son about progressively worsening condition as expected in end stage COPD ventilator dependent and now more weak/inability to thrive. Code status was discussed and the extremely poor prognosis. 08-16-24 Pt's Hb was critical and hence ordered two units packed rbcs. Pt was in no distress. Post infusion levels are improved. No new complaints 09-23-24: She had an episode of being less responsive today but recovered quickly and blood gases checked stat which were normal ph 7.43, but PaO2 was low at 50mm Hg and saturations were good at 97%. Recently transferred to the ER for respiratory distress and dropping O2 saturations. Received back with diagnosis of Pneumonia and on antibiotics. stable and no fever. Regular tracheostomy change was difficult for the respiratroy tech and hence request to Gen. surgeon made. Now stable. Plan: Current treatment as well as ventilator settings reviewed and continued.
[2024-10-31] VITALS (14 sets, daily range): BP systolic 99–118; BP diastolic 65–67; PULSE 72–88; RESP 14–20; TEMP 36.4–37.2; O2SAT 98–100
[2024-10-31] MEDS: MIDODRINE 10 MG TABLET PO ×4 (00:24→17:23)
[2024-10-31] MEDS: guaiFENesin Liq 100 MG/5 ML LIQUID 300 MG PO ×3 (00:39→20:30)
[2024-10-31] MEDS: ACETAMINOPHEN 325 MG TABLET 650 MG PO ×2 (01:45→20:30)
[2024-10-31] MEDS: IPRATROPIUM/ALBUTEROL 3 ML AMPUL.NEB INH ×6 (02:35→22:30)
[2024-10-31] MEDS: ALPRAZolam 0.5 MG TABLET PO ×2 (03:35→17:30)
[2024-10-31] MEDS: HYDRO PO ×2 (05:24→22:30)
[2024-10-31] MEDS: ACET PO ×2 (05:24→22:30)
[2024-10-31] MEDS: BUDESONIDE 0.5 MG/2 ML AMPUL.NEB INH ×2 (05:50→18:05)
[2024-10-31] MEDS: NON-FORMULARY *SEE COMMENTS* 1 EA EA 300 EA PO ×2 (06:00→18:27)
[2024-10-31 07:54] LABS: Basophils % (Auto) 0 % (0-2.5); Eosinophils # (Auto) 0.3 Thou/mm3 (0.0-0.5); Eosinophils % (Auto) 3 % (0-10); Hematocrit 27.3 % (36.0-46.0); Immature Granulocytes % (Auto) 1 % (0-0); Immature Granulocytes Auto 0.06 Thou/mm3 (0.00-0.00); Lymphocytes # (Auto) 1.6 Thou/mm3 (1.0-4.8); Lymphocytes % (Auto) 15 % (10-50); Mean Corpuscular HGB Conc 29.7 g/dl (31.0-37.0); Mean Corpuscular Hemoglobin 31.9 pg (25.0-35.0); Mean Corpuscular Volume 108 fL (80-100); Monocytes # (Auto) 0.9 Thou/mm3 (0.0-0.8); Monocytes % (Auto) 8 % (0-12); Neutrophils # (Auto) 7.8 Thou/mm3 (1.8-7.7); Neutrophils % (Auto) 73 % (37-80); Nucleated Red Blood Cell % 0 /100 WBC (0); Platelet Count 205 Thou/mm3 (140-440); RDW Standard Deviation 66.1 fL (36.4-46.3); Red Blood Count 2.54 Miln/mm3 (4.00-5.20); White Blood Count 10.7 Thou/mm3 (3.6-11.0)
[2024-10-31 07:58] LABS: Hemoglobin 8.1 g/dL (12.0-16.0)
[2024-10-31 08:16] LABS: Alanine Aminotransferase 15 U/L (10-49); Albumin, Serum 4.1 gm/dL (3.4-4.8); Albumin/Globulin Ratio 1.5 (1.2-2.2); Alkaline Phosphatase 99 U/L (46-116); Anion Gap 4 (7-16); Aspartate Amino Transferase 16 U/L (0-34); BUN/Creatinine Ratio 33 Ratio (12-20); Bilirubin,Total 0.3 mg/dL (0.3-1.2); Blood Urea Nitrogen 23 mg/dL (9-23); Calcium 9.3 mg/dL (8.3-10.6); Calcium (Corrected) 9.3 mg/dL (8.5-10.1); Carbon Dioxide > 40.0 mMol/L (20.0-31.0); Chloride 94 mMol/L (98-107); Creatinine (Component) 0.7 mg/dL (0.6-1.3); Estimated Creatinine Clearance 45.2 mL/min (>60); Globulin 2.8 gm/dL (2.3-3.5); Glucose 120 mg/dL (74-106); Osmolality,Calculated 280 (275-295); Potassium 4.7 mMol/L (3.4-5.1); Sodium 138 mMol/L (136-145); Total Protein 6.9 gm/dL (5.7-8.2); eGFR > 60 See Note
[2024-10-31] MEDS: DEX/HYPRO/GLY ARTIFICAL TEARS 225 DROP/15 ML BTL BOTH EYES ×2 (08:42→21:06)
[2024-10-31] MEDS: ASCORBIC ACID 500 MG TABLET PO ×2 (08:42→21:06)
[2024-10-31] MEDS: FAMOTIDINE 20 MG TABLET PO ×2 (08:42→21:08)
[2024-10-31] MEDS: AMIODARONE 200 MG TABLET PO (08:42)
[2024-10-31] MEDS: VITAMIN B COMPLEX PO (08:44)
[2024-10-31] MEDS: SENNOSIDES 8.6 MG TABLET PO ×2 (08:44→21:08)
[2024-10-31] MEDS: MULTIVITAMIN 1 TAB TABLET PO (08:44)
[2024-11-01] VITALS (11 sets, daily range): BP systolic 107–147; BP diastolic 58–67; PULSE 71–89; RESP 14–17; TEMP 36.1–36.5; O2SAT 98–100
[2024-11-01] MEDS: MIDODRINE 10 MG TABLET PO ×4 (00:39→18:22)
[2024-11-01] MEDS: IPRATROPIUM/ALBUTEROL 3 ML AMPUL.NEB INH ×6 (02:12→22:17)
[2024-11-01] MEDS: NON-FORMULARY *SEE COMMENTS* 1 EA EA 300 EA PO ×2 (05:37→18:22)
[2024-11-01] MEDS: BUDESONIDE 0.5 MG/2 ML AMPUL.NEB INH ×2 (05:57→18:11)
[2024-11-01] MEDS: AMIODARONE 200 MG TABLET PO (09:12)
[2024-11-01] MEDS: FAMOTIDINE 20 MG TABLET PO ×2 (09:13→20:20)
[2024-11-01] MEDS: SENNOSIDES 8.6 MG TABLET PO ×2 (09:13→20:20)
[2024-11-01] MEDS: DEX/HYPRO/GLY ARTIFICAL TEARS 225 DROP/15 ML BTL BOTH EYES ×2 (09:13→20:20)
[2024-11-01] MEDS: MULTIVITAMIN 1 TAB TABLET PO (09:13)
[2024-11-01] MEDS: ASCORBIC ACID 500 MG TABLET PO ×2 (09:13→20:21)
[2024-11-01] MEDS: VITAMIN B COMPLEX PO (09:13)
[2024-11-01] MEDS: ALPRAZolam 0.5 MG TABLET PO ×2 (09:15→20:19)
--- NOTE | 2024-11-01 10:33 | PC.NURSE ---
Called Dr hannah and made aware of the consult and he said he'll come and see her when he have time.
[2024-11-01] MEDS: guaiFENesin Liq 100 MG/5 ML LIQUID 300 MG PO ×2 (12:51→20:20)
[2024-11-01] MEDS: ACETAMINOPHEN 325 MG TABLET 650 MG PO ×2 (14:02→22:06)
[2024-11-02] VITALS (13 sets, daily range): BP systolic 110–143; BP diastolic 63–70; PULSE 61–84; RESP 14–19; TEMP 36.1–37; O2SAT 95–99
[2024-11-02] MEDS: IPRATROPIUM/ALBUTEROL 3 ML AMPUL.NEB INH ×6 (03:33→22:20)
[2024-11-02] MEDS: guaiFENesin Liq 100 MG/5 ML LIQUID 300 MG PO ×2 (05:23→12:51)
[2024-11-02] MEDS: MIDODRINE 10 MG TABLET PO ×2 (06:05)
[2024-11-02] MEDS: NON-FORMULARY *SEE COMMENTS* 1 EA EA 300 EA PO (06:05)
[2024-11-02] MEDS: BUDESONIDE 0.5 MG/2 ML AMPUL.NEB INH ×2 (06:12→19:30)
[2024-11-02] MEDS: ALPRAZolam 0.5 MG TABLET PO ×2 (09:51→20:45)
[2024-11-02] MEDS: AMIODARONE 200 MG TABLET PO (09:51)
[2024-11-02] MEDS: SENNOSIDES 8.6 MG TABLET PO ×2 (09:52→21:00)
[2024-11-02] MEDS: MULTIVITAMIN 1 TAB TABLET PO (09:52)
[2024-11-02] MEDS: VITAMIN B COMPLEX PO (09:52)
[2024-11-02] MEDS: DEX/HYPRO/GLY ARTIFICAL TEARS 225 DROP/15 ML BTL BOTH EYES ×2 (09:52→21:00)
[2024-11-02] MEDS: FAMOTIDINE 20 MG TABLET PO ×2 (09:52→22:27)
[2024-11-02] MEDS: ASCORBIC ACID 500 MG TABLET PO ×2 (09:52→21:00)
[2024-11-03] VITALS (11 sets, daily range): BP systolic 105–118; BP diastolic 58–66; PULSE 65–75; RESP 14–18; TEMP 36.6–36.9; O2SAT 96–100
[2024-11-03] MEDS: guaiFENesin Liq 100 MG/5 ML LIQUID 300 MG PO ×2 (01:28→07:10)
[2024-11-03] MEDS: ACET PO ×2 (01:29→16:10)
[2024-11-03] MEDS: HYDRO PO ×2 (01:29→16:10)
[2024-11-03] MEDS: IPRATROPIUM/ALBUTEROL 3 ML AMPUL.NEB INH ×6 (02:40→22:00)
[2024-11-03] MEDS: BUDESONIDE 0.5 MG/2 ML AMPUL.NEB INH ×2 (06:45→18:05)
[2024-11-03] MEDS: MIDODRINE 10 MG TABLET PO ×3 (07:00→17:53)
[2024-11-03] MEDS: ALPRAZolam 0.5 MG TABLET PO ×2 (07:10→15:25)
[2024-11-03] MEDS: MULTIVITAMIN 1 TAB TABLET PO (08:25)
[2024-11-03] MEDS: AMIODARONE 200 MG TABLET PO (08:25)
[2024-11-03] MEDS: FAMOTIDINE 20 MG TABLET PO ×2 (08:25→21:10)
[2024-11-03] MEDS: ASCORBIC ACID 500 MG TABLET PO ×2 (08:25→21:10)
[2024-11-03] MEDS: DEX/HYPRO/GLY ARTIFICAL TEARS 225 DROP/15 ML BTL BOTH EYES ×2 (08:25→21:10)
[2024-11-03] MEDS: VITAMIN B COMPLEX PO (08:26)
[2024-11-03] MEDS: SENNOSIDES 8.6 MG TABLET PO ×2 (08:26→21:10)
--- NOTE | 2024-11-03 13:15 | PD.SAPROG ---
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 (2) Chronic respiratory failure with hypoxia and hypercapnia: Status: Chronic (3) Ventilator dependent: Status: Chronic (4) Congestive heart failure: Status: Chronic (5) Chronic obstructive pulmonary disease, unspecified: Status: Chronic (6) Atrial fibrillation: Status: Chronic (7) Tracheostomy in place: Status: Chronic (8) Chronic anemia: Status: Chronic SUBJECTIVE Fever:: none GI:: none Shortness of Breath:: unchanged GI:: nausea Pain:: none OBJECTIVE Most recent vital signs: Last Vital Signs Temp 97.7 F 11/05/24 06:00 Pulse 77 11/05/24 14:30 Resp 17 11/05/24 14:30 BP 91/52 L 11/05/24 08:57 Pulse Ox 100 11/05/24 14:30 O2 Del Method Mechanical Ventilation 11/05/24 06:00 FiO2 40 11/05/24 22:00 Neurological:: alert Speech:: nods head, mouths words and appropriate Answers questions:: yes Respiratory:: shallow breathing and rhonchi Cardiovascular: irregular Abdomen: soft Tracheostomy:: to ventilator Feeding per:: po ASSESSMENT & PLAN Assessment: stable. Tolerating ventilatory support. Not weanable because of generalized weakness. Tolerating feeding. Prognosis is very guarded. Patient aware. Tracheostomy revision done surgically. Psychotropics: Xanax 0.5 mgs bid has really done well to settle her anxiety. no side effects seen. She does not do well on lower titration of anxiety meds. No new issues. Had a bedside conversation on quality of life and end of life care at pt's request. Pt remains comfortable on current meds. 08-11-24 had a detailed conversation with pt's son about progressively worsening condition as expected in end stage COPD ventilator dependent and now more weak/inability to thrive. Code status was discussed and the extremely poor prognosis. 08-16-24 Pt's Hb was critical and hence ordered two units packed rbcs. Pt was in no distress. Post infusion levels are improved. No new complaints 09-23-24: She had an episode of being less responsive today but recovered quickly and blood gases checked stat which were normal ph 7.43, but PaO2 was low at 50mm Hg and saturations were good at 97%. Recently transferred to the ER for respiratory distress and dropping O2 saturations. Received back with diagnosis of Pneumonia and on antibiotics. stable and no fever. Regular tracheostomy change was difficult for the respiratroy tech and hence request to Gen. surgeon made. Now stable. No complaints Plan: Current treatment as well as ventilator settings reviewed and continued.
[2024-11-03] MEDS: ACETAMINOPHEN 325 MG TABLET 650 MG PO (14:00)
--- NOTE | 2024-11-03 18:50 | PC.NURSE ---
Resident status post antibiotics for PNA. No adverse reactions noted. Continues to complain of SOB, HHN txs administered with good effect. Xanax administered x2 for anxiety/SOB. Suctioned as needed. Continue to observe.
[2024-11-04] VITALS (13 sets, daily range): BP systolic 106–122; BP diastolic 59–71; PULSE 64–81; RESP 14–19; TEMP 35.8–36.9; O2SAT 98–100
[2024-11-04] MEDS: IPRATROPIUM/ALBUTEROL 3 ML AMPUL.NEB INH ×6 (02:00→22:00)
[2024-11-04] MEDS: MIDODRINE 10 MG TABLET PO ×3 (06:00→12:28)
[2024-11-04] MEDS: BUDESONIDE 0.5 MG/2 ML AMPUL.NEB INH ×2 (06:26→19:05)
[2024-11-04] MEDS: guaiFENesin Liq 100 MG/5 ML LIQUID 300 MG PO ×3 (06:49→22:28)
[2024-11-04] MEDS: AMIODARONE 200 MG TABLET PO (08:50)
[2024-11-04] MEDS: DEX/HYPRO/GLY ARTIFICAL TEARS 225 DROP/15 ML BTL BOTH EYES ×2 (08:52→21:00)
[2024-11-04] MEDS: ASCORBIC ACID 500 MG TABLET PO ×2 (08:52→21:00)
[2024-11-04] MEDS: SENNOSIDES 8.6 MG TABLET PO ×2 (08:52→21:00)
[2024-11-04] MEDS: VITAMIN B COMPLEX PO (08:52)
[2024-11-04] MEDS: FAMOTIDINE 20 MG TABLET PO ×2 (08:52→21:00)
[2024-11-04] MEDS: MULTIVITAMIN 1 TAB TABLET PO (08:52)
[2024-11-04] MEDS: ALPRAZolam 0.5 MG TABLET PO ×2 (09:45→22:49)
[2024-11-04] MEDS: ACETAMINOPHEN 325 MG TABLET 650 MG PO ×2 (09:49→23:00)
[2024-11-04] MEDS: ACET PO (18:10)
[2024-11-04] MEDS: HYDRO PO (18:10)
[2024-11-05] VITALS (11 sets, daily range): BP systolic 91–149; BP diastolic 52–77; PULSE 62–89; RESP 15–20; TEMP 36.5–36.6; O2SAT 96–100
[2024-11-05] MEDS: IPRATROPIUM/ALBUTEROL 3 ML AMPUL.NEB INH ×6 (02:30→21:45)
[2024-11-05] MEDS: MIDODRINE 10 MG TABLET PO ×2 (06:00→17:13)
[2024-11-05] MEDS: BUDESONIDE 0.5 MG/2 ML AMPUL.NEB INH ×2 (06:05→19:05)
[2024-11-05] MEDS: ASCORBIC ACID 500 MG TABLET PO ×2 (08:57→21:08)
[2024-11-05] MEDS: FAMOTIDINE 20 MG TABLET PO ×2 (08:58→21:08)
[2024-11-05] MEDS: VITAMIN B COMPLEX PO (08:58)
[2024-11-05] MEDS: SENNOSIDES 8.6 MG TABLET PO ×2 (08:58→21:08)
[2024-11-05] MEDS: MULTIVITAMIN 1 TAB TABLET PO (08:58)
[2024-11-05] MEDS: DEX/HYPRO/GLY ARTIFICAL TEARS 225 DROP/15 ML BTL BOTH EYES ×2 (08:58→21:08)
[2024-11-05] MEDS: guaiFENesin Liq 100 MG/5 ML LIQUID 300 MG PO (09:45)
[2024-11-05] MEDS: ACETAMINOPHEN 325 MG TABLET 650 MG PO (11:30)
[2024-11-05] MEDS: ALPRAZolam 0.5 MG TABLET PO ×2 (11:35→21:30)
[2024-11-05] MEDS: ACET PO (16:15)
[2024-11-05] MEDS: HYDRO PO (16:15)
[2024-11-06] VITALS (11 sets, daily range): BP systolic 95–126; BP diastolic 60–70; PULSE 65–80; RESP 14–20; TEMP 36.4–36.6; O2SAT 96–100
[2024-11-06] MEDS: ACETAMINOPHEN 325 MG TABLET 650 MG PO ×3 (00:05→14:40)
[2024-11-06] MEDS: guaiFENesin Liq 100 MG/5 ML LIQUID 300 MG PO ×4 (00:15→23:05)
[2024-11-06] MEDS: MIDODRINE 10 MG TABLET PO ×3 (00:15→11:47)
[2024-11-06] MEDS: IPRATROPIUM/ALBUTEROL 3 ML AMPUL.NEB INH ×6 (02:40→21:45)
[2024-11-06] MEDS: BUDESONIDE 0.5 MG/2 ML AMPUL.NEB INH ×2 (06:00→19:00)
[2024-11-06] MEDS: ALPRAZolam 0.5 MG TABLET PO ×2 (08:05→17:44)
[2024-11-06] MEDS: HYDRO PO ×2 (09:00→22:45)
[2024-11-06] MEDS: ACET PO ×2 (09:00→22:45)
[2024-11-06] MEDS: AMIODARONE 200 MG TABLET PO (09:02)
[2024-11-06] MEDS: MULTIVITAMIN 1 TAB TABLET PO (09:03)
[2024-11-06] MEDS: DEX/HYPRO/GLY ARTIFICAL TEARS 225 DROP/15 ML BTL BOTH EYES ×2 (09:03→21:19)
[2024-11-06] MEDS: ASCORBIC ACID 500 MG TABLET PO ×2 (09:03→21:19)
[2024-11-06] MEDS: FAMOTIDINE 20 MG TABLET PO ×2 (09:03→21:19)
[2024-11-06] MEDS: VITAMIN B COMPLEX PO (09:04)
[2024-11-06] MEDS: SENNOSIDES 8.6 MG TABLET PO ×2 (09:04→21:19)
[2024-11-07] VITALS (12 sets, daily range): BP systolic 101–124; BP diastolic 59–70; PULSE 64–82; RESP 14–20; TEMP 36.1–36.6; O2SAT 97–100
[2024-11-07] MEDS: MIDODRINE 10 MG TABLET PO ×3 (00:10→12:00)
[2024-11-07] MEDS: ACETAMINOPHEN 325 MG TABLET 650 MG PO ×3 (01:09→21:32)
[2024-11-07] MEDS: ALPRAZolam 0.5 MG TABLET PO ×3 (01:10→22:32)
[2024-11-07] MEDS: IPRATROPIUM/ALBUTEROL 3 ML AMPUL.NEB INH ×6 (03:00→23:00)
[2024-11-07] MEDS: BISACODYL 10 MG SUPP.RECT PR (05:05)
[2024-11-07] MEDS: BUDESONIDE 0.5 MG/2 ML AMPUL.NEB INH ×2 (06:00→19:05)
[2024-11-07] MEDS: ASCORBIC ACID 500 MG TABLET PO ×2 (09:15→09:17)
[2024-11-07] MEDS: DEX/HYPRO/GLY ARTIFICAL TEARS 225 DROP/15 ML BTL BOTH EYES ×2 (09:18→20:55)
[2024-11-07] MEDS: FAMOTIDINE 20 MG TABLET PO ×2 (09:18→20:55)
[2024-11-07] MEDS: MULTIVITAMIN 1 TAB TABLET PO (09:19)
[2024-11-07] MEDS: SENNOSIDES 8.6 MG TABLET PO ×2 (09:20→20:55)
[2024-11-07] MEDS: VITAMIN B COMPLEX PO (09:20)
[2024-11-07] MEDS: guaiFENesin Liq 100 MG/5 ML LIQUID 300 MG PO ×2 (10:00→16:30)
[2024-11-07] MEDS: ACET PO (16:45)
[2024-11-07] MEDS: HYDRO PO (16:45)
--- NOTE | 2024-11-07 18:07 | PD.SAPROG ---
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 (2) Chronic respiratory failure with hypoxia and hypercapnia: Status: Chronic (3) Ventilator dependent: Status: Chronic (4) Congestive heart failure: Status: Chronic (5) Chronic obstructive pulmonary disease, unspecified: Status: Chronic (6) Atrial fibrillation: Status: Chronic (7) Tracheostomy in place: Status: Chronic (8) Chronic anemia: Status: Chronic SUBJECTIVE Fever:: none GI:: none Shortness of Breath:: unchanged GI:: nausea Pain:: none OBJECTIVE Most recent vital signs: Last Vital Signs Temp 97.8 F 11/07/24 06:00 Pulse 70 11/07/24 14:00 Resp 18 11/07/24 14:00 BP 101/59 L 11/07/24 09:18 Pulse Ox 100 11/07/24 14:00 O2 Del Method Mechanical Ventilation 11/07/24 06:00 FiO2 40 11/07/24 14:00 Neurological:: alert Speech:: nods head, mouths words and appropriate Answers questions:: yes Respiratory:: shallow breathing and rhonchi Cardiovascular: irregular Abdomen: soft Tracheostomy:: to ventilator Feeding per:: po ASSESSMENT & PLAN Assessment: stable. Tolerating ventilatory support. Not weanable because of generalized weakness. Tolerating feeding. Prognosis is very guarded. Patient aware. Tracheostomy revision done surgically. Psychotropics: Xanax 0.5 mgs bid has really done well to settle her anxiety. no side effects seen. She does not do well on lower titration of anxiety meds. No new issues. Had a bedside conversation on quality of life and end of life care at pt's request. Pt remains comfortable on current meds. 08-11-24 had a detailed conversation with pt's son about progressively worsening condition as expected in end stage COPD ventilator dependent and now more weak/inability to thrive. Code status was discussed and the extremely poor prognosis. 08-16-24 Pt's Hb was critical and hence ordered two units packed rbcs. Pt was in no distress. Post infusion levels are improved. No new complaints 09-23-24: She had an episode of being less responsive today but recovered quickly and blood gases checked stat which were normal ph 7.43, but PaO2 was low at 50mm Hg and saturations were good at 97%. Recently transferred to the ER for respiratory distress and dropping O2 saturations. Received back with diagnosis of Pneumonia and on antibiotics. stable and no fever. Regular tracheostomy change was difficult for the respiratroy tech and hence request to Gen. surgeon made and needful done, Now stable. No complaints Plan: Current treatment as well as ventilator settings reviewed and continued.
[2024-11-08] VITALS (11 sets, daily range): BP systolic 108–116; BP diastolic 61–67; PULSE 54–82; RESP 14–18; TEMP 36.2–36.6; O2SAT 99–100
[2024-11-08] MEDS: MIDODRINE 10 MG TABLET PO ×5 (00:02→23:36)
[2024-11-08] MEDS: IPRATROPIUM/ALBUTEROL 3 ML AMPUL.NEB INH ×6 (02:00→22:00)
[2024-11-08] MEDS: BUDESONIDE 0.5 MG/2 ML AMPUL.NEB INH ×2 (06:00→19:00)
[2024-11-08] MEDS: ALPRAZolam 0.5 MG TABLET PO ×2 (08:15→18:45)
[2024-11-08] MEDS: ACETAMINOPHEN 325 MG TABLET 650 MG PO ×2 (08:15→21:39)
[2024-11-08] MEDS: AMIODARONE 200 MG TABLET PO (08:16)
[2024-11-08] MEDS: SENNOSIDES 8.6 MG TABLET PO ×2 (08:17→20:56)
[2024-11-08] MEDS: FAMOTIDINE 20 MG TABLET PO ×2 (08:17→20:56)
[2024-11-08] MEDS: ASCORBIC ACID 500 MG TABLET PO ×2 (08:17→20:55)
[2024-11-08] MEDS: VITAMIN B COMPLEX PO (08:17)
[2024-11-08] MEDS: DEX/HYPRO/GLY ARTIFICAL TEARS 225 DROP/15 ML BTL BOTH EYES ×2 (08:17→20:56)
[2024-11-08] MEDS: MULTIVITAMIN 1 TAB TABLET PO (08:17)
--- NOTE | 2024-11-08 10:48 | PC.NURSE ---
Called Dr. Egan's office following up on consult placed a couple of weeks ago for trach revision spoke to doctors veterinary bacteriologist Rachel, She stated will let Doctor Jignesh know about consultation.
--- NOTE | 2024-11-08 12:13 | PC.SS ---
Room visit: Resident is laying in bed watching [employer] movie, resident is alert and socializing. Resident said she is having a good day, said she feels good. Resident enjoyed having a room visit and engaging in conversation with staff. She talked about the weather and was seen smiling. This SSD will continue to make contact with resident and offer room visits.
[2024-11-08] MEDS: HYDRO PO (15:00)
[2024-11-08] MEDS: ACET PO (15:00)
[2024-11-08] MEDS: guaiFENesin Liq 100 MG/5 ML LIQUID 300 MG PO (21:40)
[2024-11-09] VITALS (12 sets, daily range): BP systolic 105–124; BP diastolic 61–71; PULSE 66–83; RESP 14–18; TEMP 36.2–36.8; O2SAT 98–99
[2024-11-09] MEDS: IPRATROPIUM/ALBUTEROL 3 ML AMPUL.NEB INH ×6 (02:00→22:11)
[2024-11-09] MEDS: ALPRAZolam 0.5 MG TABLET PO ×3 (02:55→22:00)
[2024-11-09] MEDS: MIDODRINE 10 MG TABLET PO ×2 (05:25→17:27)
[2024-11-09] MEDS: BUDESONIDE 0.5 MG/2 ML AMPUL.NEB INH ×2 (07:53→19:32)
[2024-11-09] MEDS: AMIODARONE 200 MG TABLET PO (09:17)
[2024-11-09] MEDS: FAMOTIDINE 20 MG TABLET PO ×2 (09:18→20:19)
[2024-11-09] MEDS: DEX/HYPRO/GLY ARTIFICAL TEARS 225 DROP/15 ML BTL BOTH EYES ×2 (09:18→20:19)
[2024-11-09] MEDS: ASCORBIC ACID 500 MG TABLET PO ×2 (09:18→20:18)
[2024-11-09] MEDS: MULTIVITAMIN 1 TAB TABLET PO (09:19)
[2024-11-09] MEDS: SENNOSIDES 8.6 MG TABLET PO ×2 (09:19→20:19)
[2024-11-09] MEDS: VITAMIN B COMPLEX PO (09:20)
[2024-11-09] MEDS: ACETAMINOPHEN 325 MG TABLET 650 MG PO ×2 (09:20→23:48)
[2024-11-09] MEDS: guaiFENesin Liq 100 MG/5 ML LIQUID 300 MG PO ×3 (09:21→23:50)
[2024-11-09] MEDS: HYDRO PO (17:50)
[2024-11-09] MEDS: ACET PO (17:50)
[2024-11-10] VITALS (10 sets, daily range): BP systolic 114–176; BP diastolic 54–67; PULSE 64–81; RESP 14–20; TEMP 36.6; O2SAT 98–100
[2024-11-10] MEDS: IPRATROPIUM/ALBUTEROL 3 ML AMPUL.NEB INH ×6 (02:04→22:23)
[2024-11-10] MEDS: MIDODRINE 10 MG TABLET PO (05:41)
[2024-11-10] MEDS: BUDESONIDE 0.5 MG/2 ML AMPUL.NEB INH ×2 (07:12→17:40)
[2024-11-10] MEDS: ASCORBIC ACID 500 MG TABLET PO ×2 (09:15→20:57)
[2024-11-10] MEDS: MULTIVITAMIN 1 TAB TABLET PO (09:15)
[2024-11-10] MEDS: AMIODARONE 200 MG TABLET PO (09:15)
[2024-11-10] MEDS: DEX/HYPRO/GLY ARTIFICAL TEARS 225 DROP/15 ML BTL BOTH EYES ×2 (09:15→20:56)
[2024-11-10] MEDS: FAMOTIDINE 20 MG TABLET PO ×2 (09:15→20:56)
[2024-11-10] MEDS: VITAMIN B COMPLEX PO (09:16)
[2024-11-10] MEDS: SENNOSIDES 8.6 MG TABLET PO ×2 (09:16→21:00)
[2024-11-10] MEDS: ACETAMINOPHEN 325 MG TABLET 650 MG PO (11:30)
[2024-11-10] MEDS: guaiFENesin Liq 100 MG/5 ML LIQUID 300 MG PO ×2 (13:40→20:45)
[2024-11-10] MEDS: ALPRAZolam 0.5 MG TABLET PO ×2 (13:42→21:15)
[2024-11-10] MEDS: HYDRO PO (17:49)
[2024-11-10] MEDS: ACET PO (17:49)
[2024-11-11] VITALS (9 sets, daily range): BP systolic 101–130; BP diastolic 61–74; PULSE 71–91; RESP 14–20; TEMP 36.5–36.8; O2SAT 97–100
[2024-11-11] MEDS: IPRATROPIUM/ALBUTEROL 3 ML AMPUL.NEB INH ×6 (02:22→21:50)
[2024-11-11] MEDS: ACETAMINOPHEN 325 MG TABLET 650 MG PO ×2 (03:20→11:50)
[2024-11-11] MEDS: ACET PO ×2 (05:20→17:32)
[2024-11-11] MEDS: HYDRO PO ×2 (05:20→17:32)
[2024-11-11] MEDS: MIDODRINE 10 MG TABLET PO ×2 (06:00→17:13)
[2024-11-11] MEDS: BUDESONIDE 0.5 MG/2 ML AMPUL.NEB INH ×2 (06:55→20:25)
[2024-11-11] MEDS: ASCORBIC ACID 500 MG TABLET PO ×2 (08:54→21:11)
[2024-11-11] MEDS: DEX/HYPRO/GLY ARTIFICAL TEARS 225 DROP/15 ML BTL BOTH EYES ×2 (08:54→21:11)
[2024-11-11] MEDS: AMIODARONE 200 MG TABLET PO (08:54)
[2024-11-11] MEDS: MULTIVITAMIN 1 TAB TABLET PO (08:55)
[2024-11-11] MEDS: SENNOSIDES 8.6 MG TABLET PO ×2 (08:55→21:10)
[2024-11-11] MEDS: FAMOTIDINE 20 MG TABLET PO ×2 (08:55→21:10)
[2024-11-11] MEDS: VITAMIN B COMPLEX PO (08:56)
--- NOTE | 2024-11-11 09:36 | PD.SAPROG ---
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 (2) Chronic respiratory failure with hypoxia and hypercapnia: Status: Chronic (3) Ventilator dependent: Status: Chronic (4) Congestive heart failure: Status: Chronic (5) Chronic obstructive pulmonary disease, unspecified: Status: Chronic (6) Atrial fibrillation: Status: Chronic (7) Tracheostomy in place: Status: Chronic (8) Chronic anemia: Status: Chronic SUBJECTIVE Fever:: none GI:: none Shortness of Breath:: unchanged GI:: nausea Pain:: none OBJECTIVE Most recent vital signs: Last Vital Signs Temp 97.7 F 11/11/24 06:00 Pulse 71 11/11/24 08:54 Resp 20 11/11/24 06:55 BP 121/68 11/11/24 08:54 Pulse Ox 99 11/11/24 06:55 O2 Del Method Mechanical Ventilation 11/11/24 06:00 FiO2 40 11/11/24 06:55 Neurological:: alert Speech:: nods head, mouths words and appropriate Answers questions:: yes Respiratory:: shallow breathing and rhonchi Cardiovascular: irregular Abdomen: soft Tracheostomy:: to ventilator Feeding per:: po ASSESSMENT & PLAN Assessment: stable. Tolerating ventilatory support. Not weanable because of generalized weakness. Tolerating feeding. Prognosis is very guarded. Patient aware. Tracheostomy revision done surgically. Psychotropics: Xanax 0.5 mgs bid has really done well to settle her anxiety. no side effects seen. She does not do well on lower titration of anxiety meds. No new issues. Had a bedside conversation on quality of life and end of life care at pt's request. Pt remains comfortable on current meds. 08-11-24 had a detailed conversation with pt's son about progressively worsening condition as expected in end stage COPD ventilator dependent and now more weak/inability to thrive. Code status was discussed and the extremely poor prognosis. 08-16-24 Pt's Hb was critical and hence ordered two units packed rbcs. Pt was in no distress. Post infusion levels are improved. No new complaints 09-23-24: She had an episode of being less responsive today but recovered quickly and blood gases checked stat which were normal ph 7.43, but PaO2 was low at 50mm Hg and saturations were good at 97%. Recently transferred to the ER for respiratory distress and dropping O2 saturations. Received back with diagnosis of Pneumonia and on antibiotics. stable and no fever. Regular tracheostomy change was difficult for the respiratroy tech and hence request to Gen. surgeon made and needful done, Now stable. No complaints. VSS Plan: Current treatment as well as ventilator settings reviewed and continued.
[2024-11-11] MEDS: ALPRAZolam 0.5 MG TABLET PO ×2 (11:45→22:23)
[2024-11-11] MEDS: guaiFENesin Liq 100 MG/5 ML LIQUID 300 MG PO (19:20)
[2024-11-12] VITALS (11 sets, daily range): BP systolic 106–118; BP diastolic 62–70; PULSE 58–82; RESP 14–19; TEMP 36.6; O2SAT 96–100
[2024-11-12] MEDS: ACETAMINOPHEN 325 MG TABLET 650 MG PO ×2 (02:00→09:45)
[2024-11-12] MEDS: IPRATROPIUM/ALBUTEROL 3 ML AMPUL.NEB INH ×6 (02:40→21:45)
[2024-11-12] MEDS: MIDODRINE 10 MG TABLET PO ×4 (06:00→17:15)
[2024-11-12] MEDS: BUDESONIDE 0.5 MG/2 ML AMPUL.NEB INH ×2 (06:38→18:05)
[2024-11-12] MEDS: AMIODARONE 200 MG TABLET PO (09:42)
[2024-11-12] MEDS: FAMOTIDINE 20 MG TABLET PO ×2 (09:44→21:04)
[2024-11-12] MEDS: SENNOSIDES 8.6 MG TABLET PO ×2 (09:44→22:04)
[2024-11-12] MEDS: MULTIVITAMIN 1 TAB TABLET PO (09:44)
[2024-11-12] MEDS: VITAMIN B COMPLEX PO (09:44)
[2024-11-12] MEDS: DEX/HYPRO/GLY ARTIFICAL TEARS 225 DROP/15 ML BTL BOTH EYES ×2 (09:44→21:03)
[2024-11-12] MEDS: ASCORBIC ACID 500 MG TABLET PO ×2 (09:44→21:03)
[2024-11-12] MEDS: ALPRAZolam 0.5 MG TABLET PO ×2 (09:45→17:45)
[2024-11-12] MEDS: MAGNESIUM HYDROXIDE 30 ML ORAL SUSP ML PO (09:47)
[2024-11-12] MEDS: guaiFENesin Liq 100 MG/5 ML LIQUID 300 MG PO (17:15)
[2024-11-13] VITALS (13 sets, daily range): BP systolic 104–140; BP diastolic 57–74; PULSE 65–83; RESP 14–23; TEMP 36.5–36.7; O2SAT 18–100
[2024-11-13] MEDS: IPRATROPIUM/ALBUTEROL 3 ML AMPUL.NEB INH ×6 (02:40→22:30)
[2024-11-13] MEDS: MIDODRINE 10 MG TABLET PO ×2 (06:12→16:58)
[2024-11-13] MEDS: BUDESONIDE 0.5 MG/2 ML AMPUL.NEB INH ×2 (07:47→18:50)
[2024-11-13] MEDS: guaiFENesin Liq 100 MG/5 ML LIQUID 300 MG PO ×3 (09:22→21:02)
[2024-11-13] MEDS: ALPRAZolam 0.5 MG TABLET PO ×2 (09:22→20:49)
[2024-11-13] MEDS: AMIODARONE 200 MG TABLET PO (09:23)
[2024-11-13] MEDS: ASCORBIC ACID 500 MG TABLET PO ×2 (09:23→20:49)
[2024-11-13] MEDS: DEX/HYPRO/GLY ARTIFICAL TEARS 225 DROP/15 ML BTL BOTH EYES ×2 (09:23→20:50)
[2024-11-13] MEDS: MULTIVITAMIN 1 TAB TABLET PO (09:24)
[2024-11-13] MEDS: SENNOSIDES 8.6 MG TABLET PO ×2 (09:24→20:50)
[2024-11-13] MEDS: FAMOTIDINE 20 MG TABLET PO ×2 (09:24→20:50)
[2024-11-13] MEDS: VITAMIN B COMPLEX PO (09:25)
[2024-11-13] MEDS: ACET PO (16:07)
[2024-11-13] MEDS: HYDRO PO (16:07)
[2024-11-14] VITALS (12 sets, daily range): BP systolic 116–138; BP diastolic 61–76; PULSE 56–89; RESP 14–18; TEMP 36.7–36.8; O2SAT 98–100
[2024-11-14] MEDS: HYDRO PO (00:59)
[2024-11-14] MEDS: ACET PO (00:59)
[2024-11-14] MEDS: MIDODRINE 10 MG TABLET PO (05:19)
[2024-11-14] MEDS: guaiFENesin Liq 100 MG/5 ML LIQUID 300 MG PO ×3 (05:45→22:05)
[2024-11-14] MEDS: ALPRAZolam 0.5 MG TABLET PO ×2 (05:45→15:15)
[2024-11-14] MEDS: BUDESONIDE 0.5 MG/2 ML AMPUL.NEB INH ×2 (06:51→18:05)
[2024-11-14] MEDS: IPRATROPIUM/ALBUTEROL 3 ML AMPUL.NEB INH ×5 (06:51→22:00)
[2024-11-14] MEDS: AMIODARONE 200 MG TABLET PO (09:50)
[2024-11-14] MEDS: FAMOTIDINE 20 MG TABLET PO ×2 (09:51→20:18)
[2024-11-14] MEDS: DEX/HYPRO/GLY ARTIFICAL TEARS 225 DROP/15 ML BTL BOTH EYES ×2 (09:51→20:18)
[2024-11-14] MEDS: ASCORBIC ACID 500 MG TABLET PO ×2 (09:51→20:18)
[2024-11-14] MEDS: SENNOSIDES 8.6 MG TABLET PO ×2 (09:51→20:18)
[2024-11-14] MEDS: MULTIVITAMIN 1 TAB TABLET PO (09:51)
[2024-11-14] MEDS: VITAMIN B COMPLEX PO (09:53)
[2024-11-14] MEDS: ACETAMINOPHEN 325 MG TABLET 650 MG PO (20:18)
[2024-11-15] VITALS (12 sets, daily range): BP systolic 97–136; BP diastolic 59–65; PULSE 67–77; RESP 14–16; TEMP 36.5–36.9; O2SAT 97–100
[2024-11-15] MEDS: MIDODRINE 10 MG TABLET PO ×2 (00:07→05:38)
[2024-11-15] MEDS: IPRATROPIUM/ALBUTEROL 3 ML AMPUL.NEB INH ×5 (07:08→21:50)
[2024-11-15] MEDS: BUDESONIDE 0.5 MG/2 ML AMPUL.NEB INH ×2 (07:08→18:00)
[2024-11-15] MEDS: FAMOTIDINE 20 MG TABLET PO ×2 (09:50→20:26)
[2024-11-15] MEDS: ASCORBIC ACID 500 MG TABLET PO ×2 (09:50→20:26)
[2024-11-15] MEDS: DEX/HYPRO/GLY ARTIFICAL TEARS 225 DROP/15 ML BTL BOTH EYES ×2 (09:50→20:26)
[2024-11-15] MEDS: SENNOSIDES 8.6 MG TABLET PO ×2 (09:55→20:26)
[2024-11-15] MEDS: VITAMIN B COMPLEX PO (09:55)
[2024-11-15] MEDS: MULTIVITAMIN 1 TAB TABLET PO (09:55)
[2024-11-15] MEDS: guaiFENesin Liq 100 MG/5 ML LIQUID 300 MG PO ×2 (12:15→20:26)
[2024-11-15] MEDS: ALPRAZolam 0.5 MG TABLET PO (12:15)
[2024-11-15] MEDS: HYDRO PO (13:45)
[2024-11-15] MEDS: ACET PO (13:45)
--- NOTE | 2024-11-15 21:09 | PD.SAPROG ---
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 (2) Chronic respiratory failure with hypoxia and hypercapnia: Status: Chronic (3) Ventilator dependent: Status: Chronic (4) Congestive heart failure: Status: Chronic (5) Chronic obstructive pulmonary disease, unspecified: Status: Chronic (6) Atrial fibrillation: Status: Chronic (7) Tracheostomy in place: Status: Chronic (8) Chronic anemia: Status: Chronic SUBJECTIVE Fever:: none GI:: none Shortness of Breath:: unchanged GI:: nausea Pain:: none OBJECTIVE Most recent vital signs: Last Vital Signs Temp 98.4 F 11/15/24 17:15 Pulse 72 11/15/24 18:00 Resp 14 11/15/24 18:00 BP 112/65 11/15/24 17:15 Pulse Ox 100 11/15/24 18:00 O2 Del Method Mechanical Ventilation 11/15/24 17:15 FiO2 40 11/15/24 18:00 Neurological:: alert Speech:: nods head, mouths words and appropriate Answers questions:: yes Respiratory:: shallow breathing and rhonchi Cardiovascular: irregular Abdomen: soft Tracheostomy:: to ventilator Feeding per:: po ASSESSMENT & PLAN Assessment: stable. Tolerating ventilatory support. Not weanable because of generalized weakness. Tolerating feeding. Prognosis is very guarded. Patient aware. Tracheostomy revision done surgically. Psychotropics: Xanax 0.5 mgs bid has really done well to settle her anxiety. no side effects seen. She does not do well on lower titration of anxiety meds. No new issues. Had a bedside conversation on quality of life and end of life care at pt's request. Pt remains comfortable on current meds. 08-11-24 had a detailed conversation with pt's son about progressively worsening condition as expected in end stage COPD ventilator dependent and now more weak/inability to thrive. Code status was discussed and the extremely poor prognosis. 08-16-24 Pt's Hb was critical and hence ordered two units packed rbcs. Pt was in no distress. Post infusion levels are improved. No new complaints 09-23-24: She had an episode of being less responsive today but recovered quickly and blood gases checked stat which were normal ph 7.43, but PaO2 was low at 50mm Hg and saturations were good at 97%. Recently transferred to the ER for respiratory distress and dropping O2 saturations. Received back with diagnosis of Pneumonia and on antibiotics. stable and no fever. Regular tracheostomy change was difficult for the respiratroy tech and hence request to Gen. surgeon made and needful done, Now stable. No complaints. VSS Plan: Current treatment as well as ventilator settings reviewed and continued.
[2024-11-15] MEDS: ACETAMINOPHEN 325 MG TABLET 650 MG PO (22:50)
[2024-11-16] VITALS (11 sets, daily range): BP systolic 118–135; BP diastolic 65–70; PULSE 64–79; RESP 14–20; TEMP 36.1–36.3; O2SAT 98–100
[2024-11-16] MEDS: IPRATROPIUM/ALBUTEROL 3 ML AMPUL.NEB INH ×6 (02:00→22:00)
[2024-11-16] MEDS: BUDESONIDE 0.5 MG/2 ML AMPUL.NEB INH ×2 (06:12→19:52)
[2024-11-16] MEDS: ALPRAZolam 0.5 MG TABLET PO ×2 (07:37→16:04)
[2024-11-16] MEDS: AMIODARONE 200 MG TABLET PO (08:22)
[2024-11-16] MEDS: ASCORBIC ACID 500 MG TABLET PO ×2 (08:23→20:33)
[2024-11-16] MEDS: FAMOTIDINE 20 MG TABLET PO ×2 (08:23→20:34)
[2024-11-16] MEDS: DEX/HYPRO/GLY ARTIFICAL TEARS 225 DROP/15 ML BTL BOTH EYES ×2 (08:23→20:34)
[2024-11-16] MEDS: VITAMIN B COMPLEX PO (08:23)
[2024-11-16] MEDS: SENNOSIDES 8.6 MG TABLET PO ×2 (08:23→20:34)
[2024-11-16] MEDS: MULTIVITAMIN 1 TAB TABLET PO (08:23)
[2024-11-16] MEDS: MIDODRINE 10 MG TABLET PO ×2 (11:54→17:05)
[2024-11-16] MEDS: guaiFENesin Liq 100 MG/5 ML LIQUID 300 MG PO ×2 (16:23→23:52)
[2024-11-16] MEDS: ACET PO (17:24)
[2024-11-16] MEDS: HYDRO PO (17:24)
[2024-11-17] VITALS (12 sets, daily range): BP systolic 105–149; BP diastolic 63–87; PULSE 67–89; RESP 14–22; TEMP 36.2–36.7; O2SAT 97–99
[2024-11-17] MEDS: ACETAMINOPHEN 325 MG TABLET 650 MG PO (01:16)
[2024-11-17] MEDS: ALPRAZolam 0.5 MG TABLET PO ×3 (04:30→22:15)
[2024-11-17] MEDS: IPRATROPIUM/ALBUTEROL 3 ML AMPUL.NEB INH ×4 (06:45→22:00)
[2024-11-17] MEDS: ASCORBIC ACID 500 MG TABLET PO ×2 (09:08→21:10)
[2024-11-17] MEDS: AMIODARONE 200 MG TABLET PO (09:08)
[2024-11-17] MEDS: FAMOTIDINE 20 MG TABLET PO ×2 (09:10→21:11)
[2024-11-17] MEDS: DEX/HYPRO/GLY ARTIFICAL TEARS 225 DROP/15 ML BTL BOTH EYES ×2 (09:10→21:11)
[2024-11-17] MEDS: VITAMIN B COMPLEX PO (09:10)
[2024-11-17] MEDS: MULTIVITAMIN 1 TAB TABLET PO (09:10)
[2024-11-17] MEDS: SENNOSIDES 8.6 MG TABLET PO ×2 (09:10→21:11)
[2024-11-17] MEDS: guaiFENesin Liq 100 MG/5 ML LIQUID 300 MG PO (09:30)
[2024-11-17] MEDS: MIDODRINE 10 MG TABLET PO (12:15)
[2024-11-17] MEDS: ACET PO (14:45)
[2024-11-17] MEDS: HYDRO PO (14:45)
[2024-11-18] VITALS (11 sets, daily range): BP systolic 100–122; BP diastolic 52–63; PULSE 58–77; RESP 14–19; TEMP 36.3–36.8; O2SAT 98–100
[2024-11-18] MEDS: MIDODRINE 10 MG TABLET PO ×4 (00:36→18:00)
[2024-11-18] MEDS: IPRATROPIUM/ALBUTEROL 3 ML AMPUL.NEB INH ×6 (02:00→22:05)
[2024-11-18] MEDS: guaiFENesin Liq 100 MG/5 ML LIQUID 300 MG PO ×2 (05:11→19:28)
[2024-11-18] MEDS: BUDESONIDE 0.5 MG/2 ML AMPUL.NEB INH ×2 (06:50→18:05)
[2024-11-18] MEDS: DEX/HYPRO/GLY ARTIFICAL TEARS 225 DROP/15 ML BTL BOTH EYES ×2 (09:12→20:20)
[2024-11-18] MEDS: FAMOTIDINE 20 MG TABLET PO ×2 (09:12→20:20)
[2024-11-18] MEDS: ASCORBIC ACID 500 MG TABLET PO ×2 (09:12→20:20)
[2024-11-18] MEDS: MULTIVITAMIN 1 TAB TABLET PO (09:12)
[2024-11-18] MEDS: VITAMIN B COMPLEX PO (09:13)
[2024-11-18] MEDS: SENNOSIDES 8.6 MG TABLET PO ×2 (09:13→21:20)
[2024-11-18] MEDS: ACETAMINOPHEN 325 MG TABLET 650 MG PO ×2 (09:14→20:20)
[2024-11-18] MEDS: ALPRAZolam 0.5 MG TABLET PO ×2 (11:45→20:59)
[2024-11-18] MEDS: ACET PO (15:36)
[2024-11-18] MEDS: HYDRO PO (15:36)
[2024-11-18] MEDS: BISACODYL 10 MG SUPP.RECT PR (18:16)
[2024-11-18] MEDS: MAG HYDROX/ALUMINUM HYD/SIMETH 355 ML BTL 30 ML PO (23:56)
[2024-11-19] VITALS (13 sets, daily range): BP systolic 110–123; BP diastolic 60–71; PULSE 65–82; RESP 14–24; TEMP 36.3–36.8; O2SAT 98–100
[2024-11-19] MEDS: MIDODRINE 10 MG TABLET PO ×2 (00:52→12:09)
[2024-11-19] MEDS: IPRATROPIUM/ALBUTEROL 3 ML AMPUL.NEB INH ×6 (02:05→22:30)
[2024-11-19] MEDS: BUDESONIDE 0.5 MG/2 ML AMPUL.NEB INH (06:10)
[2024-11-19] MEDS: ALPRAZolam 0.5 MG TABLET PO (06:40)
[2024-11-19] MEDS: AMIODARONE 200 MG TABLET PO (08:58)
[2024-11-19] MEDS: ASCORBIC ACID 500 MG TABLET PO ×2 (08:59→20:17)
[2024-11-19] MEDS: DEX/HYPRO/GLY ARTIFICAL TEARS 225 DROP/15 ML BTL BOTH EYES ×2 (09:01→20:17)
[2024-11-19] MEDS: FAMOTIDINE 20 MG TABLET PO ×2 (09:01→20:17)
[2024-11-19] MEDS: MULTIVITAMIN 1 TAB TABLET PO (09:01)
[2024-11-19] MEDS: SENNOSIDES 8.6 MG TABLET PO ×2 (09:01→20:17)
[2024-11-19] MEDS: VITAMIN B COMPLEX PO (09:02)
[2024-11-19] MEDS: guaiFENesin Liq 100 MG/5 ML LIQUID 300 MG PO ×2 (12:50→18:50)
--- NOTE | 2024-11-19 14:57 | PC.SS ---
Room visit: Resident son is her healthcare proxy, both make decisions together. She has clear speech able to make needs known. Resident is laying in bed with head of the bed elevated with call light properly placed with no signs of distress. Resident remains on vent with trach in place and GT for medication and nutrition. Resident has no changes in care or condition she will remain in current care as she is unable to return home due to heavy and complicated care regimen. All subacute care needs to be met in facility by staff.
[2024-11-19] MEDS: ACETAMINOPHEN 325 MG TABLET 650 MG PO (14:58)
--- NOTE | 2024-11-19 21:09 | PD.SAPROG ---
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 (2) Chronic respiratory failure with hypoxia and hypercapnia: Status: Chronic (3) Ventilator dependent: Status: Chronic (4) Congestive heart failure: Status: Chronic (5) Chronic obstructive pulmonary disease, unspecified: Status: Chronic (6) Atrial fibrillation: Status: Chronic (7) Tracheostomy in place: Status: Chronic (8) Chronic anemia: Status: Chronic SUBJECTIVE Fever:: none GI:: none Shortness of Breath:: unchanged GI:: nausea Pain:: none OBJECTIVE Most recent vital signs: Last Vital Signs Temp 98.2 F 11/19/24 17:40 Pulse 71 11/19/24 17:40 Resp 17 11/19/24 17:40 BP 123/70 11/19/24 17:40 Pulse Ox 100 11/19/24 17:40 O2 Del Method Mechanical Ventilation 11/19/24 17:40 FiO2 40 11/19/24 14:33 Neurological:: alert Speech:: nods head, mouths words and appropriate Answers questions:: yes Respiratory:: shallow breathing and rhonchi Cardiovascular: irregular Abdomen: soft Tracheostomy:: to ventilator Feeding per:: po ASSESSMENT & PLAN Assessment: stable. Tolerating ventilatory support. Not weanable because of generalized weakness. Tolerating feeding. Prognosis is very guarded. Patient aware. Tracheostomy revision done surgically. Psychotropics: Xanax 0.5 mgs bid has really done well to settle her anxiety. no side effects seen. She does not do well on lower titration of anxiety meds. No new issues. Had a bedside conversation on quality of life and end of life care at pt's request. Pt remains comfortable on current meds. 08-11-24 had a detailed conversation with pt's son about progressively worsening condition as expected in end stage COPD ventilator dependent and now more weak/inability to thrive. Code status was discussed and the extremely poor prognosis. 08-16-24 Pt's Hb was critical and hence ordered two units packed rbcs. Pt was in no distress. Post infusion levels are improved. No new complaints 09-23-24: She had an episode of being less responsive today but recovered quickly and blood gases checked stat which were normal ph 7.43, but PaO2 was low at 50mm Hg and saturations were good at 97%. Recently transferred to the ER for respiratory distress and dropping O2 saturations. Received back with diagnosis of Pneumonia and on antibiotics. stable and no fever. Regular tracheostomy change was difficult for the respiratroy tech and hence request to Gen. surgeon made and needful done, Now stable. No complaints. VSS Plan: Current treatment as well as ventilator settings reviewed and continued.
[2024-11-19] MEDS: HYDRO PO (23:30)
[2024-11-19] MEDS: ACET PO (23:30)
[2024-11-20] VITALS (10 sets, daily range): BP systolic 93–130; BP diastolic 54–68; PULSE 72–83; RESP 14–26; TEMP 36.4–36.9; O2SAT 97–100
[2024-11-20] MEDS: IPRATROPIUM/ALBUTEROL 3 ML AMPUL.NEB INH ×6 (02:30→22:00)
[2024-11-20] MEDS: MIDODRINE 10 MG TABLET PO ×3 (05:25→17:05)
[2024-11-20] MEDS: BUDESONIDE 0.5 MG/2 ML AMPUL.NEB INH ×3 (06:00→18:00)
[2024-11-20] MEDS: AMIODARONE 200 MG TABLET PO (09:06)
[2024-11-20] MEDS: VITAMIN B COMPLEX PO (09:09)
[2024-11-20] MEDS: FAMOTIDINE 20 MG TABLET PO ×2 (09:09→20:21)
[2024-11-20] MEDS: MULTIVITAMIN 1 TAB TABLET PO (09:09)
[2024-11-20] MEDS: SENNOSIDES 8.6 MG TABLET PO ×2 (09:09→20:21)
[2024-11-20] MEDS: ASCORBIC ACID 500 MG TABLET PO ×2 (09:09→20:21)
[2024-11-20] MEDS: DEX/HYPRO/GLY ARTIFICAL TEARS 225 DROP/15 ML BTL BOTH EYES ×2 (09:09→20:21)
[2024-11-20] MEDS: ALPRAZolam 0.5 MG TABLET PO ×2 (09:11→17:40)
[2024-11-20] MEDS: guaiFENesin Liq 100 MG/5 ML LIQUID 300 MG PO (16:06)
[2024-11-20] MEDS: HYDRO PO (16:07)
[2024-11-20] MEDS: ACET PO (16:07)
[2024-11-21] VITALS (11 sets, daily range): BP systolic 94–120; BP diastolic 59–70; PULSE 66–81; RESP 14–20; TEMP 36.1–36.9; O2SAT 97–100
[2024-11-21] MEDS: ALPRAZolam 0.5 MG TABLET PO ×2 (02:15→21:12)
[2024-11-21] MEDS: MIDODRINE 10 MG TABLET PO ×3 (05:20→18:00)
[2024-11-21] MEDS: IPRATROPIUM/ALBUTEROL 3 ML AMPUL.NEB INH ×5 (06:15→22:25)
[2024-11-21] MEDS: BUDESONIDE 0.5 MG/2 ML AMPUL.NEB INH ×2 (06:15→18:20)
[2024-11-21] MEDS: guaiFENesin Liq 100 MG/5 ML LIQUID 300 MG PO ×2 (09:30→21:26)
[2024-11-21] MEDS: AMIODARONE 200 MG TABLET PO (09:35)
[2024-11-21] MEDS: ASCORBIC ACID 500 MG TABLET PO ×2 (09:35→21:13)
[2024-11-21] MEDS: MULTIVITAMIN 1 TAB TABLET PO (09:37)
[2024-11-21] MEDS: DEX/HYPRO/GLY ARTIFICAL TEARS 225 DROP/15 ML BTL BOTH EYES ×2 (09:37→21:13)
[2024-11-21] MEDS: FAMOTIDINE 20 MG TABLET PO ×2 (09:37→21:13)
[2024-11-21] MEDS: VITAMIN B COMPLEX PO (09:38)
[2024-11-21] MEDS: SENNOSIDES 8.6 MG TABLET PO ×2 (09:38→21:13)
[2024-11-21] MEDS: ACET PO ×2 (11:15→11:45)
[2024-11-21] MEDS: HYDRO PO ×2 (11:15→11:45)
[2024-11-22] VITALS (11 sets, daily range): BP systolic 90–124; BP diastolic 50–78; PULSE 64–82; RESP 14–22; TEMP 36.1–36.6; O2SAT 98–100
[2024-11-22] MEDS: ACET PO ×2 (00:04→17:51)
[2024-11-22] MEDS: HYDRO PO ×2 (00:04→17:51)
[2024-11-22] MEDS: MIDODRINE 10 MG TABLET PO ×3 (05:45→17:52)
[2024-11-22] MEDS: BUDESONIDE 0.5 MG/2 ML AMPUL.NEB INH ×2 (06:10→18:10)
[2024-11-22] MEDS: IPRATROPIUM/ALBUTEROL 3 ML AMPUL.NEB INH ×5 (06:10→22:05)
[2024-11-22] MEDS: BISACODYL 10 MG SUPP.RECT PR (06:15)
[2024-11-22] MEDS: ACETAMINOPHEN 325 MG TABLET 650 MG PO (06:15)
[2024-11-22] MEDS: ASCORBIC ACID 500 MG TABLET PO ×2 (08:42→20:35)
[2024-11-22] MEDS: DEX/HYPRO/GLY ARTIFICAL TEARS 225 DROP/15 ML BTL BOTH EYES ×2 (08:42→20:35)
[2024-11-22] MEDS: VITAMIN B COMPLEX PO (08:43)
[2024-11-22] MEDS: FAMOTIDINE 20 MG TABLET PO ×2 (08:43→20:36)
[2024-11-22] MEDS: MULTIVITAMIN 1 TAB TABLET PO (08:43)
[2024-11-22] MEDS: SENNOSIDES 8.6 MG TABLET PO ×2 (08:43→20:36)
[2024-11-22] MEDS: guaiFENesin Liq 100 MG/5 ML LIQUID 300 MG PO ×2 (10:27→17:52)
[2024-11-22] MEDS: ALPRAZolam 0.5 MG TABLET PO (13:45)
[2024-11-23] VITALS (12 sets, daily range): BP systolic 110–117; BP diastolic 61–69; PULSE 64–81; RESP 14–18; TEMP 36.3–36.8; O2SAT 98–100
[2024-11-23] MEDS: ALPRAZolam 0.5 MG TABLET PO ×6 (00:45→23:40)
[2024-11-23] MEDS: IPRATROPIUM/ALBUTEROL 3 ML AMPUL.NEB INH ×6 (02:15→22:00)
[2024-11-23] MEDS: HYDRO PO ×2 (05:15→15:15)
[2024-11-23] MEDS: ACET PO ×2 (05:15→15:15)
[2024-11-23] MEDS: MIDODRINE 10 MG TABLET PO ×3 (05:30→17:30)
[2024-11-23] MEDS: guaiFENesin Liq 100 MG/5 ML LIQUID 300 MG PO (05:45)
[2024-11-23] MEDS: BUDESONIDE 0.5 MG/2 ML AMPUL.NEB INH ×2 (06:47→18:35)
[2024-11-23] MEDS: AMIODARONE 200 MG TABLET PO (09:23)
[2024-11-23] MEDS: FAMOTIDINE 20 MG TABLET PO ×2 (09:26→20:37)
[2024-11-23] MEDS: MULTIVITAMIN 1 TAB TABLET PO (09:26)
[2024-11-23] MEDS: DEX/HYPRO/GLY ARTIFICAL TEARS 225 DROP/15 ML BTL BOTH EYES ×2 (09:26→20:37)
[2024-11-23] MEDS: ASCORBIC ACID 500 MG TABLET PO ×2 (09:26→20:36)
[2024-11-23] MEDS: VITAMIN B COMPLEX PO (09:27)
[2024-11-23] MEDS: SENNOSIDES 8.6 MG TABLET PO ×2 (09:27→20:37)
--- NOTE | 2024-11-23 11:10 | PD.SAPROG ---
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 (2) Chronic respiratory failure with hypoxia and hypercapnia: Status: Chronic (3) Ventilator dependent: Status: Chronic (4) Congestive heart failure: Status: Chronic (5) Chronic obstructive pulmonary disease, unspecified: Status: Chronic (6) Atrial fibrillation: Status: Chronic (7) Tracheostomy in place: Status: Chronic (8) Chronic anemia: Status: Chronic SUBJECTIVE Fever:: none GI:: none Shortness of Breath:: unchanged GI:: nausea Pain:: none OBJECTIVE Most recent vital signs: Last Vital Signs Temp 97.4 F 11/23/24 06:00 Pulse 68 11/23/24 10:24 Resp 18 11/23/24 10:24 BP 110/61 11/23/24 09:23 Pulse Ox 99 11/23/24 10:24 O2 Del Method Mechanical Ventilation 11/23/24 06:00 FiO2 40 11/23/24 10:24 Neurological:: alert Speech:: nods head, mouths words and appropriate Answers questions:: yes Respiratory:: shallow breathing and rhonchi Cardiovascular: irregular Abdomen: soft Tracheostomy:: to ventilator Feeding per:: po ASSESSMENT & PLAN Assessment: stable. Tolerating ventilatory support. Not weanable because of generalized weakness. Tolerating feeding. Prognosis is very guarded. Patient aware. Tracheostomy revision done surgically. Psychotropics: Xanax 0.5 mgs bid has really done well to settle her anxiety. no side effects seen. She does not do well on lower titration of anxiety meds. No new issues. Had a bedside conversation on quality of life and end of life care at pt's request. Pt remains comfortable on current meds. 08-11-24 had a detailed conversation with pt's son about progressively worsening condition as expected in end stage COPD ventilator dependent and now more weak/inability to thrive. Code status was discussed and the extremely poor prognosis. 08-16-24 Pt's Hb was critical and hence ordered two units packed rbcs. Pt was in no distress. Post infusion levels are improved. No new complaints 09-23-24: She had an episode of being less responsive today but recovered quickly and blood gases checked stat which were normal ph 7.43, but PaO2 was low at 50mm Hg and saturations were good at 97%. Recently transferred to the ER for respiratory distress and dropping O2 saturations. Received back with diagnosis of Pneumonia and on antibiotics. stable and no fever. Regular tracheostomy change was difficult for the respiratroy tech and hence request to Gen. surgeon made and needful done, Now stable. No complaints. VSS . O2 saturations good on FiO2 of 45% Plan: Current treatment as well as ventilator settings reviewed and continued.
[2024-11-23] MEDS: ACETAMINOPHEN 325 MG TABLET 650 MG PO (21:35)
[2024-11-24] VITALS (12 sets, daily range): BP systolic 98–140; BP diastolic 60–70; PULSE 62–95; RESP 14–18; TEMP 36.3–36.7; O2SAT 98–100
[2024-11-24] MEDS: IPRATROPIUM/ALBUTEROL 3 ML AMPUL.NEB INH ×6 (02:00→22:30)
[2024-11-24] MEDS: guaiFENesin Liq 100 MG/5 ML LIQUID 300 MG PO ×3 (03:30→23:09)
[2024-11-24] MEDS: BUDESONIDE 0.5 MG/2 ML AMPUL.NEB INH ×2 (07:11→18:45)
[2024-11-24] MEDS: AMIODARONE 200 MG TABLET PO (09:21)
[2024-11-24] MEDS: FAMOTIDINE 20 MG TABLET PO ×2 (09:22→20:58)
[2024-11-24] MEDS: DEX/HYPRO/GLY ARTIFICAL TEARS 225 DROP/15 ML BTL BOTH EYES ×2 (09:22→20:58)
[2024-11-24] MEDS: ASCORBIC ACID 500 MG TABLET PO ×2 (09:22→20:58)
[2024-11-24] MEDS: MULTIVITAMIN 1 TAB TABLET PO (09:22)
[2024-11-24] MEDS: VITAMIN B COMPLEX PO (09:23)
[2024-11-24] MEDS: SENNOSIDES 8.6 MG TABLET PO ×2 (09:23→20:58)
[2024-11-24] MEDS: ALPRAZolam 0.5 MG TABLET PO ×5 (13:00→23:46)
[2024-11-24] MEDS: MIDODRINE 10 MG TABLET PO ×2 (17:30→23:14)
[2024-11-24] MEDS: ACETAMINOPHEN 325 MG TABLET 650 MG PO (23:46)
[2024-11-25] VITALS (12 sets, daily range): BP systolic 98–110; BP diastolic 54–76; PULSE 62–87; RESP 14–24; TEMP 36.6–36.8; O2SAT 98–99
[2024-11-25] MEDS: ACET PO ×3 (01:00→20:17)
[2024-11-25] MEDS: HYDRO PO ×3 (01:00→20:17)
[2024-11-25] MEDS: IPRATROPIUM/ALBUTEROL 3 ML AMPUL.NEB INH ×6 (02:15→23:24)
[2024-11-25] MEDS: MIDODRINE 10 MG TABLET PO ×3 (05:22→18:30)
[2024-11-25] MEDS: BUDESONIDE 0.5 MG/2 ML AMPUL.NEB INH ×2 (06:46→18:05)
[2024-11-25] MEDS: AMIODARONE 200 MG TABLET PO (09:19)
[2024-11-25] MEDS: ASCORBIC ACID 500 MG TABLET PO ×2 (09:20→20:15)
[2024-11-25] MEDS: DEX/HYPRO/GLY ARTIFICAL TEARS 225 DROP/15 ML BTL BOTH EYES ×2 (09:20→20:16)
[2024-11-25] MEDS: MULTIVITAMIN 1 TAB TABLET PO (09:21)
[2024-11-25] MEDS: VITAMIN B COMPLEX PO (09:21)
[2024-11-25] MEDS: FAMOTIDINE 20 MG TABLET PO ×2 (09:21→20:15)
[2024-11-25] MEDS: SENNOSIDES 8.6 MG TABLET PO ×2 (09:40→20:16)
[2024-11-25] MEDS: guaiFENesin Liq 100 MG/5 ML LIQUID 300 MG PO ×2 (11:30→20:17)
[2024-11-25] MEDS: ALPRAZolam 0.5 MG TABLET PO ×2 (15:00→23:18)
[2024-11-25] MEDS: BISACODYL 10 MG SUPP.RECT PR (19:11)
[2024-11-26] VITALS (10 sets, daily range): BP systolic 97–114; BP diastolic 52–62; PULSE 59–88; RESP 14–22; TEMP 36.4–36.6; O2SAT 98–100
[2024-11-26] MEDS: MIDODRINE 10 MG TABLET PO ×4 (00:02→17:37)
[2024-11-26] MEDS: ACETAMINOPHEN 325 MG TABLET 650 MG PO ×2 (05:34→14:16)
[2024-11-26] MEDS: BUDESONIDE 0.5 MG/2 ML AMPUL.NEB INH ×2 (06:00→18:06)
[2024-11-26] MEDS: IPRATROPIUM/ALBUTEROL 3 ML AMPUL.NEB INH ×4 (06:00→22:00)
[2024-11-26] MEDS: AMIODARONE 200 MG TABLET PO (09:11)
[2024-11-26] MEDS: ASCORBIC ACID 500 MG TABLET PO ×2 (09:11→21:11)
[2024-11-26] MEDS: MULTIVITAMIN 1 TAB TABLET PO (09:11)
[2024-11-26] MEDS: FAMOTIDINE 20 MG TABLET PO ×2 (09:11→21:11)
[2024-11-26] MEDS: DEX/HYPRO/GLY ARTIFICAL TEARS 225 DROP/15 ML BTL BOTH EYES ×2 (09:11→21:11)
[2024-11-26] MEDS: SENNOSIDES 8.6 MG TABLET PO ×2 (09:12→21:11)
[2024-11-26] MEDS: VITAMIN B COMPLEX PO (09:12)
[2024-11-26] MEDS: ALPRAZolam 0.5 MG TABLET PO ×2 (11:56→23:03)
[2024-11-26] MEDS: guaiFENesin Liq 100 MG/5 ML LIQUID 300 MG PO (14:43)
--- NOTE | 2024-11-26 15:26 | PC.SS ---
Room Visit: Resident remains in current care with no changes in care or condition. Remains on vent with trach in place and GT for medication and nutrition. Resident is able to make needs known she is alert and oriented. Resident healthcare proxy is her son, both make decisions together. Resident will remain in current care and will continue to have all subacute care needs met by staff. No changes in mood and behavior.
--- NOTE | 2024-11-26 15:51 | PC.SS ---
Resident received mail, she did not need assistance with it. She was informed by this SSD if she should need help this SSD would assist with her mail.
[2024-11-26] MEDS: ACET PO (19:38)
[2024-11-26] MEDS: HYDRO PO (19:38)
[2024-11-27] VITALS (12 sets, daily range): BP systolic 110–132; BP diastolic 65–75; PULSE 43–83; RESP 15–24; TEMP 36.5–36.7; O2SAT 98–100
[2024-11-27] MEDS: IPRATROPIUM/ALBUTEROL 3 ML AMPUL.NEB INH ×6 (02:10→22:41)
[2024-11-27] MEDS: MIDODRINE 10 MG TABLET PO ×3 (05:34→17:08)
[2024-11-27] MEDS: BUDESONIDE 0.5 MG/2 ML AMPUL.NEB INH ×2 (06:00→18:06)
[2024-11-27] MEDS: guaiFENesin Liq 100 MG/5 ML LIQUID 300 MG PO ×2 (06:21→19:30)
[2024-11-27] MEDS: ALPRAZolam 0.5 MG TABLET PO (09:41)
[2024-11-27] MEDS: AMIODARONE 200 MG TABLET PO (09:42)
[2024-11-27] MEDS: DEX/HYPRO/GLY ARTIFICAL TEARS 225 DROP/15 ML BTL BOTH EYES ×2 (09:42→20:00)
[2024-11-27] MEDS: ASCORBIC ACID 500 MG TABLET PO ×2 (09:42→20:00)
[2024-11-27] MEDS: MULTIVITAMIN 1 TAB TABLET PO (09:43)
[2024-11-27] MEDS: SENNOSIDES 8.6 MG TABLET PO ×2 (09:43→20:00)
[2024-11-27] MEDS: FAMOTIDINE 20 MG TABLET PO ×2 (09:43→20:00)
[2024-11-27] MEDS: VITAMIN B COMPLEX PO (09:44)
[2024-11-27] MEDS: ACET PO (17:09)
[2024-11-27] MEDS: HYDRO PO (17:09)
--- NOTE | 2024-11-27 17:50 | PD.SAPROG ---
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 (2) Chronic respiratory failure with hypoxia and hypercapnia: Status: Chronic (3) Ventilator dependent: Status: Chronic (4) Congestive heart failure: Status: Chronic (5) Chronic obstructive pulmonary disease, unspecified: Status: Chronic (6) Atrial fibrillation: Status: Chronic (7) Tracheostomy in place: Status: Chronic (8) Chronic anemia: Status: Chronic SUBJECTIVE Fever:: none GI:: none Shortness of Breath:: unchanged GI:: nausea Pain:: none OBJECTIVE Most recent vital signs: Last Vital Signs Temp 97.7 F 11/29/24 17:01 Pulse 70 11/29/24 17:01 Resp 16 11/29/24 17:01 BP 111/59 L 11/29/24 17:01 Pulse Ox 97 11/29/24 17:01 O2 Del Method Mechanical Ventilation 11/29/24 17:01 FiO2 40 11/29/24 14:06 Neurological:: alert Speech:: nods head, mouths words and appropriate Answers questions:: yes Respiratory:: shallow breathing and rhonchi Cardiovascular: irregular Abdomen: soft Tracheostomy:: to ventilator Feeding per:: po ASSESSMENT & PLAN Assessment: stable. Tolerating ventilatory support. Not weanable because of generalized weakness. Tolerating feeding. Prognosis is very guarded. Patient aware. Tracheostomy revision done surgically. Psychotropics: Xanax 0.5 mgs bid has really done well to settle her anxiety. no side effects seen. She does not do well on lower titration of anxiety meds. No new issues. Had a bedside conversation on quality of life and end of life care at pt's request. Pt remains comfortable on current meds. 08-11-24 had a detailed conversation with pt's son about progressively worsening condition as expected in end stage COPD ventilator dependent and now more weak/inability to thrive. Code status was discussed and the extremely poor prognosis. 08-16-24 Pt's Hb was critical and hence ordered two units packed rbcs. Pt was in no distress. Post infusion levels are improved. No new complaints 09-23-24: She had an episode of being less responsive today but recovered quickly and blood gases checked stat which were normal ph 7.43, but PaO2 was low at 50mm Hg and saturations were good at 97%. Recently transferred to the ER for respiratory distress and dropping O2 saturations. Received back with diagnosis of Pneumonia and on antibiotics. stable and no fever. Regular tracheostomy change was difficult for the respiratroy tech and hence request to Gen. surgeon made and needful done, Now stable. No complaints. VSS . O2 saturations good on FiO2 of 45% Plan: Current treatment as well as ventilator settings reviewed and continued.
[2024-11-28] VITALS (9 sets, daily range): BP systolic 110–115; BP diastolic 60–70; PULSE 19–78; RESP 14–24; TEMP 36.6; O2SAT 98–100
[2024-11-28] MEDS: IPRATROPIUM/ALBUTEROL 3 ML AMPUL.NEB INH ×6 (02:27→22:15)
[2024-11-28] MEDS: ACET PO ×2 (02:30→12:00)
[2024-11-28] MEDS: HYDRO PO ×2 (02:30→12:00)
[2024-11-28] MEDS: ACETAMINOPHEN 325 MG TABLET 650 MG PO ×3 (04:00→22:50)
[2024-11-28] MEDS: MIDODRINE 10 MG TABLET PO ×4 (05:16→18:00)
[2024-11-28] MEDS: BUDESONIDE 0.5 MG/2 ML AMPUL.NEB INH ×2 (07:12→18:05)
[2024-11-28] MEDS: ALPRAZolam 0.5 MG TABLET PO ×3 (07:30→21:04)
[2024-11-28] MEDS: AMIODARONE 200 MG TABLET PO (08:23)
[2024-11-28] MEDS: ASCORBIC ACID 500 MG TABLET PO ×2 (08:24→21:02)
[2024-11-28] MEDS: VITAMIN B COMPLEX PO (08:25)
[2024-11-28] MEDS: MULTIVITAMIN 1 TAB TABLET PO (08:25)
[2024-11-28] MEDS: FAMOTIDINE 20 MG TABLET PO ×2 (08:25→20:58)
[2024-11-28] MEDS: DEX/HYPRO/GLY ARTIFICAL TEARS 225 DROP/15 ML BTL BOTH EYES ×2 (08:25→20:58)
[2024-11-28] MEDS: SENNOSIDES 8.6 MG TABLET PO ×2 (08:25→20:59)
[2024-11-28] MEDS: guaiFENesin Liq 100 MG/5 ML LIQUID 300 MG PO ×2 (09:00→18:00)
[2024-11-29] VITALS (11 sets, daily range): BP systolic 101–117; BP diastolic 58–61; PULSE 51–72; RESP 14–20; TEMP 36.4–36.7; O2SAT 97–100; BMI 17.3
[2024-11-29] MEDS: MIDODRINE 10 MG TABLET PO ×4 (00:03→18:20)
[2024-11-29] MEDS: guaiFENesin Liq 100 MG/5 ML LIQUID 300 MG PO ×2 (02:57→11:00)
[2024-11-29] MEDS: HYDRO PO ×2 (03:26→22:27)
[2024-11-29] MEDS: ACET PO ×2 (03:26→22:27)
[2024-11-29] MEDS: BUDESONIDE 0.5 MG/2 ML AMPUL.NEB INH (06:10)
[2024-11-29] MEDS: IPRATROPIUM/ALBUTEROL 3 ML AMPUL.NEB INH ×5 (06:10→22:15)
[2024-11-29] MEDS: ASCORBIC ACID 500 MG TABLET PO ×2 (08:51→20:42)
[2024-11-29] MEDS: AMIODARONE 200 MG TABLET PO (08:51)
[2024-11-29] MEDS: DEX/HYPRO/GLY ARTIFICAL TEARS 225 DROP/15 ML BTL BOTH EYES ×2 (08:52→20:42)
[2024-11-29] MEDS: FAMOTIDINE 20 MG TABLET PO ×2 (08:52→20:41)
[2024-11-29] MEDS: MULTIVITAMIN 1 TAB TABLET PO (08:53)
[2024-11-29] MEDS: VITAMIN B COMPLEX PO (08:53)
[2024-11-29] MEDS: SENNOSIDES 8.6 MG TABLET PO ×2 (08:53→20:44)
[2024-11-29] MEDS: ALPRAZolam 0.5 MG TABLET PO ×2 (10:30→20:44)
[2024-11-29] MEDS: ACETAMINOPHEN 325 MG TABLET 650 MG PO ×2 (15:30→16:30)
[2024-11-30] VITALS (13 sets, daily range): BP systolic 94–124; BP diastolic 50–65; PULSE 61–71; RESP 14–21; TEMP 36.2–36.6; O2SAT 96–99
[2024-11-30] MEDS: MIDODRINE 10 MG TABLET PO ×3 (00:04→12:02)
[2024-11-30] MEDS: ACETAMINOPHEN 325 MG TABLET 650 MG PO ×3 (01:38→15:18)
[2024-11-30] MEDS: IPRATROPIUM/ALBUTEROL 3 ML AMPUL.NEB INH ×6 (02:15→22:05)
[2024-11-30] MEDS: BUDESONIDE 0.5 MG/2 ML AMPUL.NEB INH ×2 (06:22→18:50)
[2024-11-30] MEDS: MAG HYDROX/ALUMINUM HYD/SIMETH 355 ML BTL 30 ML PO (07:06)
[2024-11-30] MEDS: SILVER NITRATE APPLICATOR 1 EACH STICK..EA. TOP (09:00)
[2024-11-30] MEDS: ALPRAZolam 0.5 MG TABLET PO ×2 (09:09→20:13)
[2024-11-30] MEDS: guaiFENesin Liq 100 MG/5 ML LIQUID 300 MG PO ×2 (09:10→21:05)
[2024-11-30] MEDS: AMIODARONE 200 MG TABLET PO (09:11)
[2024-11-30] MEDS: ASCORBIC ACID 500 MG TABLET PO ×2 (09:12→20:12)
[2024-11-30] MEDS: DEX/HYPRO/GLY ARTIFICAL TEARS 225 DROP/15 ML BTL BOTH EYES ×2 (09:12→20:12)
[2024-11-30] MEDS: SENNOSIDES 8.6 MG TABLET PO ×2 (09:13→20:12)
[2024-11-30] MEDS: MULTIVITAMIN 1 TAB TABLET PO (09:13)
[2024-11-30] MEDS: FAMOTIDINE 20 MG TABLET PO ×2 (09:13→20:12)
[2024-11-30] MEDS: VITAMIN B COMPLEX PO (09:14)
--- NOTE | 2024-11-30 16:42 | PD.SAPROG ---
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 (2) Chronic respiratory failure with hypoxia and hypercapnia: Status: Chronic (3) Ventilator dependent: Status: Chronic (4) Congestive heart failure: Status: Chronic (5) Chronic obstructive pulmonary disease, unspecified: Status: Chronic (6) Atrial fibrillation: Status: Chronic (7) Tracheostomy in place: Status: Chronic (8) Chronic anemia: Status: Chronic SUBJECTIVE Fever:: none GI:: none Shortness of Breath:: unchanged GI:: nausea Pain:: none OBJECTIVE Most recent vital signs: Last Vital Signs Temp 97.2 F 11/30/24 12:00 Pulse 63 11/30/24 14:30 Resp 14 11/30/24 14:30 BP 103/61 11/30/24 12:00 Pulse Ox 99 11/30/24 14:30 O2 Del Method Mechanical Ventilation 11/29/24 17:01 FiO2 40 11/30/24 14:30 Neurological:: alert Speech:: nods head, mouths words and appropriate Answers questions:: yes Respiratory:: shallow breathing and rhonchi Cardiovascular: irregular Abdomen: soft Tracheostomy:: to ventilator Feeding per:: po ASSESSMENT & PLAN Assessment: stable. Tolerating ventilatory support. Not weanable because of generalized weakness. Tolerating feeding. Prognosis is very guarded. Patient aware. Tracheostomy revision done surgically. Psychotropics: Xanax 0.5 mgs bid has really done well to settle her anxiety. no side effects seen. She does not do well on lower titration of anxiety meds. No new issues. Had a bedside conversation on quality of life and end of life care at pt's request. Pt remains comfortable on current meds. 08-11-24 had a detailed conversation with pt's son about progressively worsening condition as expected in end stage COPD ventilator dependent and now more weak/inability to thrive. Code status was discussed and the extremely poor prognosis. 08-16-24 Pt's Hb was critical and hence ordered two units packed rbcs. Pt was in no distress. Post infusion levels are improved. No new complaints 09-23-24: She had an episode of being less responsive today but recovered quickly and blood gases checked stat which were normal ph 7.43, but PaO2 was low at 50mm Hg and saturations were good at 97%. Recently transferred to the ER for respiratory distress and dropping O2 saturations. Received back with diagnosis of Pneumonia and on antibiotics. stable and no fever. Regular tracheostomy change was difficult for the respiratroy tech and hence request to Gen. surgeon made and needful done, Now stable. No complaints. VSS . O2 saturations good on FiO2 of 45% Plan: Current treatment as well as ventilator settings reviewed and continued.
[2024-11-30] MEDS: ACET PO (20:55)
[2024-11-30] MEDS: HYDRO PO (20:55)
[2024-12-01] VITALS (13 sets, daily range): BP systolic 115–150; BP diastolic 66–78; PULSE 62–92; RESP 14–21; TEMP 36.5–36.8; O2SAT 97–99
[2024-12-01] MEDS: MIDODRINE 10 MG TABLET PO
[2024-12-01] MEDS: IPRATROPIUM/ALBUTEROL 3 ML AMPUL.NEB INH ×6 (02:10→22:39)
[2024-12-01] MEDS: ACETAMINOPHEN 325 MG TABLET 650 MG PO ×3 (03:25→23:30)
[2024-12-01] MEDS: ALPRAZolam 0.5 MG TABLET PO ×3 (04:15→14:30)
[2024-12-01] MEDS: ACET PO (08:00)
[2024-12-01] MEDS: HYDRO PO (08:00)
[2024-12-01] MEDS: AMIODARONE 200 MG TABLET PO (08:22)
[2024-12-01] MEDS: ASCORBIC ACID 500 MG TABLET PO ×2 (08:22→20:18)
[2024-12-01] MEDS: MULTIVITAMIN 1 TAB TABLET PO (08:23)
[2024-12-01] MEDS: DEX/HYPRO/GLY ARTIFICAL TEARS 225 DROP/15 ML BTL BOTH EYES ×2 (08:23→20:19)
[2024-12-01] MEDS: FAMOTIDINE 20 MG TABLET PO ×2 (08:23→20:19)
[2024-12-01] MEDS: SENNOSIDES 8.6 MG TABLET PO ×2 (08:23→20:19)
[2024-12-01] MEDS: VITAMIN B COMPLEX PO (08:23)
[2024-12-01] MEDS: guaiFENesin Liq 100 MG/5 ML LIQUID 300 MG PO (16:30)
--- NOTE | 2024-12-01 17:17 | PC.RT ---
Vent not changed at this time. Out of heated wires. Pt does not tolerate HME.
--- NOTE | 2024-12-01 17:45 | PC.NURSE ---
Report received from RT (Zita) on duty, trach was changed to portex 7 cuffed without any difficulty, resident tolerated the procedure.
[2024-12-01] MEDS: BUDESONIDE 0.5 MG/2 ML AMPUL.NEB INH (18:51)
[2024-12-02] VITALS (12 sets, daily range): BP systolic 95–110; BP diastolic 53–63; PULSE 53–91; RESP 14–24; TEMP 36.2–36.6; O2SAT 97–100
[2024-12-02] MEDS: MIDODRINE 10 MG TABLET PO ×4 (00:47→17:30)
[2024-12-02] MEDS: guaiFENesin Liq 100 MG/5 ML LIQUID 300 MG PO ×2 (00:48→23:14)
[2024-12-02] MEDS: ALPRAZolam 0.5 MG TABLET PO ×2 (01:37→19:15)
[2024-12-02] MEDS: ACETAMINOPHEN 325 MG TABLET 650 MG PO ×2 (06:38→13:00)
[2024-12-02] MEDS: IPRATROPIUM/ALBUTEROL 3 ML AMPUL.NEB INH ×5 (06:50→22:07)
[2024-12-02] MEDS: BUDESONIDE 0.5 MG/2 ML AMPUL.NEB INH ×2 (06:50→19:01)
[2024-12-02] MEDS: AMIODARONE 200 MG TABLET PO (08:48)
[2024-12-02] MEDS: ASCORBIC ACID 500 MG TABLET PO ×2 (08:50→20:22)
[2024-12-02] MEDS: SENNOSIDES 8.6 MG TABLET PO ×2 (08:50→20:23)
[2024-12-02] MEDS: FAMOTIDINE 20 MG TABLET PO ×2 (08:50→20:23)
[2024-12-02] MEDS: MULTIVITAMIN 1 TAB TABLET PO (08:50)
[2024-12-02] MEDS: DEX/HYPRO/GLY ARTIFICAL TEARS 225 DROP/15 ML BTL BOTH EYES ×2 (08:50→20:23)
[2024-12-02] MEDS: VITAMIN B COMPLEX PO (08:50)
[2024-12-02] MEDS: ACET PO ×2 (15:30→23:11)
[2024-12-02] MEDS: HYDRO PO ×2 (15:30→23:11)
[2024-12-03] VITALS (13 sets, daily range): BP systolic 96–146; BP diastolic 58–77; PULSE 69–85; RESP 14–23; TEMP 36.4–36.7; O2SAT 94–100
[2024-12-03] MEDS: MIDODRINE 10 MG TABLET PO (05:28)
[2024-12-03] MEDS: ACETAMINOPHEN 325 MG TABLET 650 MG PO ×2 (06:02→15:30)
[2024-12-03] MEDS: IPRATROPIUM/ALBUTEROL 3 ML AMPUL.NEB INH ×5 (06:30→22:21)
[2024-12-03] MEDS: BUDESONIDE 0.5 MG/2 ML AMPUL.NEB INH ×2 (06:30→19:28)
[2024-12-03] MEDS: FAMOTIDINE 20 MG TABLET PO ×2 (10:04→20:01)
[2024-12-03] MEDS: ASCORBIC ACID 500 MG TABLET PO ×2 (10:04→20:01)
[2024-12-03] MEDS: SENNOSIDES 8.6 MG TABLET PO ×2 (10:04→20:02)
[2024-12-03] MEDS: MULTIVITAMIN 1 TAB TABLET PO (10:04)
[2024-12-03] MEDS: DEX/HYPRO/GLY ARTIFICAL TEARS 225 DROP/15 ML BTL BOTH EYES ×2 (10:04→20:01)
[2024-12-03] MEDS: AMIODARONE 200 MG TABLET PO (10:04)
[2024-12-03] MEDS: VITAMIN B COMPLEX PO (10:05)
[2024-12-03] MEDS: guaiFENesin Liq 100 MG/5 ML LIQUID 300 MG PO (13:50)
[2024-12-03] MEDS: ALPRAZolam 0.5 MG TABLET PO (15:30)
[2024-12-03] MEDS: ACET PO (19:40)
[2024-12-03] MEDS: HYDRO PO (19:40)
[2024-12-04] VITALS (11 sets, daily range): BP systolic 97–120; BP diastolic 61–79; PULSE 56–85; RESP 14–20; TEMP 36.3–36.4; O2SAT 96–100
[2024-12-04] MEDS: guaiFENesin Liq 100 MG/5 ML LIQUID 300 MG PO ×4 (01:40→23:10)
[2024-12-04] MEDS: ACETAMINOPHEN 325 MG TABLET 650 MG PO (01:40)
[2024-12-04] MEDS: MIDODRINE 10 MG TABLET PO ×2 (05:28→11:42)
[2024-12-04] MEDS: IPRATROPIUM/ALBUTEROL 3 ML AMPUL.NEB INH ×5 (06:12→22:00)
[2024-12-04] MEDS: BUDESONIDE 0.5 MG/2 ML AMPUL.NEB INH ×2 (06:12→18:20)
[2024-12-04] MEDS: ASCORBIC ACID 500 MG TABLET PO ×2 (08:00→20:35)
[2024-12-04] MEDS: FAMOTIDINE 20 MG TABLET PO ×2 (08:01→20:35)
[2024-12-04] MEDS: SENNOSIDES 8.6 MG TABLET PO ×2 (08:01→20:35)
[2024-12-04] MEDS: DEX/HYPRO/GLY ARTIFICAL TEARS 225 DROP/15 ML BTL BOTH EYES ×2 (08:01→20:35)
[2024-12-04] MEDS: MULTIVITAMIN 1 TAB TABLET PO (08:01)
[2024-12-04] MEDS: VITAMIN B COMPLEX PO (08:01)
[2024-12-04] MEDS: ACET PO (09:38)
[2024-12-04] MEDS: HYDRO PO (09:38)
[2024-12-04] MEDS: ALPRAZolam 0.5 MG TABLET PO (18:07)
--- NOTE | 2024-12-04 19:02 | PD.SAPROG ---
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 (2) Chronic respiratory failure with hypoxia and hypercapnia: Status: Chronic (3) Ventilator dependent: Status: Chronic (4) Congestive heart failure: Status: Chronic (5) Chronic obstructive pulmonary disease, unspecified: Status: Chronic (6) Atrial fibrillation: Status: Chronic (7) Tracheostomy in place: Status: Chronic (8) Chronic anemia: Status: Chronic SUBJECTIVE Fever:: none GI:: none Shortness of Breath:: unchanged GI:: nausea Pain:: none OBJECTIVE Most recent vital signs: Last Vital Signs Temp 97.3 F 12/04/24 12:00 Pulse 72 12/04/24 14:20 Resp 15 12/04/24 14:20 BP 110/63 12/04/24 12:00 Pulse Ox 100 12/04/24 14:20 O2 Del Method Mechanical Ventilation 12/04/24 05:49 FiO2 40 12/04/24 14:20 Neurological:: alert Speech:: nods head, mouths words and appropriate Answers questions:: yes Respiratory:: shallow breathing and rhonchi Cardiovascular: irregular Abdomen: soft Tracheostomy:: to ventilator Feeding per:: po ASSESSMENT & PLAN Assessment: stable. Tolerating ventilatory support. Not weanable because of generalized weakness. Tolerating feeding. Prognosis is very guarded. Patient aware. Tracheostomy revision done surgically. Psychotropics: Xanax 0.5 mgs bid has really done well to settle her anxiety. no side effects seen. She does not do well on lower titration of anxiety meds. No new issues. Had a bedside conversation on quality of life and end of life care at pt's request. Pt remains comfortable on current meds. 08-11-24 had a detailed conversation with pt's son about progressively worsening condition as expected in end stage COPD ventilator dependent and now more weak/inability to thrive. Code status was discussed and the extremely poor prognosis. 08-16-24 Pt's Hb was critical and hence ordered two units packed rbcs. Pt was in no distress. Post infusion levels are improved. No new complaints 09-23-24: She had an episode of being less responsive today but recovered quickly and blood gases checked stat which were normal ph 7.43, but PaO2 was low at 50mm Hg and saturations were good at 97%. Recently transferred to the ER for respiratory distress and dropping O2 saturations. Received back with diagnosis of Pneumonia and on antibiotics. stable and no fever. Regular tracheostomy change was difficult for the respiratroy tech and hence request to Gen. surgeon made and needful done, Now stable. No complaints. VSS . O2 saturations good on FiO2 of 45%. Pt maintaining good temperament and content. Plan: Current treatment as well as ventilator settings reviewed and continued.
[2024-12-05] VITALS (13 sets, daily range): BP systolic 103–116; BP diastolic 57–67; PULSE 60–82; RESP 14–19; TEMP 36.1–36.6; O2SAT 98–100
[2024-12-05] MEDS: IPRATROPIUM/ALBUTEROL 3 ML AMPUL.NEB INH ×6 (01:55→22:21)
[2024-12-05] MEDS: HYDRO PO ×2 (02:05→19:31)
[2024-12-05] MEDS: ACET PO ×2 (02:05→19:31)
[2024-12-05] MEDS: ALPRAZolam 0.5 MG TABLET PO ×2 (03:10→14:30)
[2024-12-05] MEDS: BUDESONIDE 0.5 MG/2 ML AMPUL.NEB INH ×2 (06:07→19:45)
[2024-12-05] MEDS: MULTIVITAMIN 1 TAB TABLET PO (08:40)
[2024-12-05] MEDS: FAMOTIDINE 20 MG TABLET PO ×2 (08:40→20:29)
[2024-12-05] MEDS: AMIODARONE 200 MG TABLET PO (08:40)
[2024-12-05] MEDS: SENNOSIDES 8.6 MG TABLET PO ×2 (08:40→20:29)
[2024-12-05] MEDS: DEX/HYPRO/GLY ARTIFICAL TEARS 225 DROP/15 ML BTL BOTH EYES ×2 (08:40→20:29)
[2024-12-05] MEDS: ASCORBIC ACID 500 MG TABLET PO ×2 (08:40→20:29)
[2024-12-05] MEDS: VITAMIN B COMPLEX PO (08:41)
[2024-12-05] MEDS: MIDODRINE 10 MG TABLET PO ×3 (11:34→23:52)
[2024-12-05] MEDS: guaiFENesin Liq 100 MG/5 ML LIQUID 300 MG PO ×2 (15:36→21:35)
[2024-12-05] MEDS: ACETAMINOPHEN 325 MG TABLET 650 MG PO (17:30)
[2024-12-05] MEDS: MAGNESIUM HYDROXIDE 30 ML ORAL SUSP ML PO (20:29)
[2024-12-06] VITALS (13 sets, daily range): BP systolic 112–121; BP diastolic 62–69; PULSE 55–72; RESP 14–20; TEMP 36.2–36.4; O2SAT 97–100
[2024-12-06] MEDS: ACETAMINOPHEN 325 MG TABLET 650 MG PO ×2 (00:47→21:00)
[2024-12-06] MEDS: IPRATROPIUM/ALBUTEROL 3 ML AMPUL.NEB INH ×6 (01:55→22:30)
[2024-12-06] MEDS: MIDODRINE 10 MG TABLET PO ×3 (05:25→17:03)
[2024-12-06] MEDS: BUDESONIDE 0.5 MG/2 ML AMPUL.NEB INH ×2 (06:08→19:23)
[2024-12-06] MEDS: AMIODARONE 200 MG TABLET PO (09:23)
[2024-12-06] MEDS: ASCORBIC ACID 500 MG TABLET PO ×2 (09:24→20:07)
[2024-12-06] MEDS: DEX/HYPRO/GLY ARTIFICAL TEARS 225 DROP/15 ML BTL BOTH EYES ×2 (09:25→20:07)
[2024-12-06] MEDS: FAMOTIDINE 20 MG TABLET PO ×2 (09:25→20:07)
[2024-12-06] MEDS: MULTIVITAMIN 1 TAB TABLET PO (09:26)
[2024-12-06] MEDS: SENNOSIDES 8.6 MG TABLET PO ×2 (09:26→20:07)
[2024-12-06] MEDS: guaiFENesin Liq 100 MG/5 ML LIQUID 300 MG PO ×2 (09:35→17:00)
[2024-12-06] MEDS: ALPRAZolam 0.5 MG TABLET PO ×2 (09:54→19:25)
--- NOTE | 2024-12-06 11:58 | PC.NURSE ---
came and check resident toe nail Right great toe, and nails feel off while trimming.
[2024-12-06] MEDS: ACET PO (15:14)
[2024-12-06] MEDS: HYDRO PO (15:14)
[2024-12-07] VITALS (11 sets, daily range): BP systolic 98–134; BP diastolic 53–68; PULSE 54–87; RESP 14–22; TEMP 36.4–36.7; O2SAT 98–100
[2024-12-07] MEDS: HYDRO PO (00:35)
[2024-12-07] MEDS: ACET PO (00:35)
[2024-12-07] MEDS: IPRATROPIUM/ALBUTEROL 3 ML AMPUL.NEB INH ×6 (02:30→22:04)
[2024-12-07] MEDS: MIDODRINE 10 MG TABLET PO ×3 (05:28→17:35)
[2024-12-07] MEDS: BUDESONIDE 0.5 MG/2 ML AMPUL.NEB INH ×2 (07:16→18:04)
[2024-12-07] MEDS: ALPRAZolam 0.5 MG TABLET PO ×2 (08:00→22:25)
[2024-12-07] MEDS: VITAMIN B COMPLEX PO (09:35)
[2024-12-07] MEDS: SILVER NITRATE APPLICATOR 1 EACH STICK..EA. TOP (09:40)
[2024-12-07] MEDS: DEX/HYPRO/GLY ARTIFICAL TEARS 225 DROP/15 ML BTL BOTH EYES ×2 (09:44→20:00)
[2024-12-07] MEDS: SENNOSIDES 8.6 MG TABLET PO ×2 (09:44→20:00)
[2024-12-07] MEDS: MULTIVITAMIN 1 TAB TABLET PO (09:44)
[2024-12-07] MEDS: FAMOTIDINE 20 MG TABLET PO ×2 (09:44→20:00)
[2024-12-07] MEDS: ASCORBIC ACID 500 MG TABLET PO ×2 (09:45→20:00)
[2024-12-07] MEDS: ACETAMINOPHEN 325 MG TABLET 650 MG PO (10:30)
--- NOTE | 2024-12-07 12:29 | PC.SS ---
Resident seen by [employer] Driver/Dr. Jaeger on 12/06/24, see electrician elevator maintenance notes for treatment. Resident tolerated treatment well with no questions or concerns.
[2024-12-07] MEDS: AMIODARONE 200 MG TABLET PO (12:42)
[2024-12-07] MEDS: guaiFENesin Liq 100 MG/5 ML LIQUID 300 MG PO (23:30)
[2024-12-08] VITALS (11 sets, daily range): BP systolic 102–117; BP diastolic 59–69; PULSE 62–90; RESP 15–20; TEMP 36.2–36.7; O2SAT 97–100
[2024-12-08] MEDS: MIDODRINE 10 MG TABLET PO ×4 (05:25→17:35)
[2024-12-08] MEDS: BUDESONIDE 0.5 MG/2 ML AMPUL.NEB INH ×2 (06:45→18:04)
[2024-12-08] MEDS: IPRATROPIUM/ALBUTEROL 3 ML AMPUL.NEB INH ×6 (06:45→22:05)
[2024-12-08] MEDS: guaiFENesin Liq 100 MG/5 ML LIQUID 300 MG PO ×2 (08:00→16:30)
[2024-12-08] MEDS: ALPRAZolam 0.5 MG TABLET PO ×2 (08:16→17:45)
[2024-12-08] MEDS: ASCORBIC ACID 500 MG TABLET PO ×2 (08:17→20:35)
[2024-12-08] MEDS: AMIODARONE 200 MG TABLET PO (08:17)
[2024-12-08] MEDS: VITAMIN B COMPLEX PO (08:17)
[2024-12-08] MEDS: DEX/HYPRO/GLY ARTIFICAL TEARS 225 DROP/15 ML BTL BOTH EYES ×2 (08:18→20:35)
[2024-12-08] MEDS: SENNOSIDES 8.6 MG TABLET PO ×2 (08:18→20:36)
[2024-12-08] MEDS: MULTIVITAMIN 1 TAB TABLET PO (08:18)
[2024-12-08] MEDS: FAMOTIDINE 20 MG TABLET PO ×2 (08:18→20:36)
[2024-12-08 09:20] LABS: Basophils % (Auto) 0 % (0-2.5); Eosinophils # (Auto) 0.3 Thou/mm3 (0.0-0.5); Eosinophils % (Auto) 3 % (0-10); Hematocrit 25.2 % (36.0-46.0); Immature Granulocytes % (Auto) 0 % (0-0); Immature Granulocytes Auto 0.03 Thou/mm3 (0.00-0.00); Lymphocytes # (Auto) 1.5 Thou/mm3 (1.0-4.8); Lymphocytes % (Auto) 16 % (10-50); Mean Corpuscular Hemoglobin 32.4 pg (25.0-35.0); Mean Corpuscular Volume 105 fL (80-100); Monocytes % (Auto) 11 % (0-12); Neutrophils # (Auto) 6.8 Thou/mm3 (1.8-7.7); Neutrophils % (Auto) 71 % (37-80); Nucleated Red Blood Cell % 0 /100 WBC (0); Platelet Count 195 Thou/mm3 (140-440); RDW Standard Deviation 57.1 fL (36.4-46.3); Red Blood Count 2.41 Miln/mm3 (4.00-5.20); White Blood Count 9.6 Thou/mm3 (3.6-11.0)
[2024-12-08 09:21] LABS: Hemoglobin 7.8 g/dL (12.0-16.0)
[2024-12-08 09:35] LABS: Prothrombin Time 11.4 Seconds (9.0-12.2)
[2024-12-08 09:39] LABS: Anion Gap 5 (7-16); BUN/Creatinine Ratio 28 Ratio (12-20); Blood Urea Nitrogen 14 mg/dL (9-23); Calcium 9.4 mg/dL (8.3-10.6); Carbon Dioxide 38.4 mMol/L (20.0-31.0); Chloride 94 mMol/L (98-107); Creatinine (Component) 0.5 mg/dL (0.6-1.3); Estimated Creatinine Clearance 66.4 mL/min (>60); Glucose 126 mg/dL (74-106); Osmolality,Calculated 276 (275-295); Potassium 4.1 mMol/L (3.4-5.1); Sodium 137 mMol/L (136-145); eGFR > 60 See Note
--- NOTE | 2024-12-08 12:24 | PC.NURSE ---
Discussed with resident regarding trach revision by Dr. Egan. Resident is declining at this time. She stated Not today I will think it about it Notified Thao from OR as she was requesting Pt information. Dr. Salazar will be notified.
[2024-12-08] MEDS: ACETAMINOPHEN 325 MG TABLET 650 MG PO (16:30)
--- NOTE | 2024-12-08 20:35 | PD.SAPROG ---
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 (2) Chronic respiratory failure with hypoxia and hypercapnia: Status: Chronic (3) Ventilator dependent: Status: Chronic (4) Congestive heart failure: Status: Chronic (5) Chronic obstructive pulmonary disease, unspecified: Status: Chronic (6) Atrial fibrillation: Status: Chronic (7) Tracheostomy in place: Status: Chronic (8) Chronic anemia: Status: Chronic SUBJECTIVE Fever:: none GI:: none Shortness of Breath:: unchanged GI:: nausea Pain:: none OBJECTIVE Most recent vital signs: Last Vital Signs Temp 98.0 F 12/08/24 17:57 Pulse 78 12/08/24 17:57 Resp 15 12/08/24 17:57 BP 102/69 12/08/24 17:57 Pulse Ox 99 12/08/24 17:57 O2 Del Method Mechanical Ventilation 12/08/24 17:57 FiO2 40 12/08/24 15:20 Neurological:: alert Speech:: nods head, mouths words and appropriate Answers questions:: yes Respiratory:: shallow breathing and rhonchi Cardiovascular: irregular Abdomen: soft Tracheostomy:: to ventilator Feeding per:: po ASSESSMENT & PLAN Assessment: stable. Tolerating ventilatory support. Not weanable because of generalized weakness. Tolerating feeding. Prognosis is very guarded. Patient aware. Tracheostomy revision done surgically. Psychotropics: Xanax 0.5 mgs bid has really done well to settle her anxiety. no side effects seen. She does not do well on lower titration of anxiety meds. No new issues. Had a bedside conversation on quality of life and end of life care at pt's request. Pt remains comfortable on current meds. 08-11-24 had a detailed conversation with pt's son about progressively worsening condition as expected in end stage COPD ventilator dependent and now more weak/inability to thrive. Code status was discussed and the extremely poor prognosis. 08-16-24 Pt's Hb was critical and hence ordered two units packed rbcs. Pt was in no distress. Post infusion levels are improved. No new complaints 09-23-24: She had an episode of being less responsive today but recovered quickly and blood gases checked stat which were normal ph 7.43, but PaO2 was low at 50mm Hg and saturations were good at 97%. Recently transferred to the ER for respiratory distress and dropping O2 saturations. Received back with diagnosis of Pneumonia and on antibiotics. stable and no fever. Regular tracheostomy change was difficult for the respiratroy tech and hence request to Gen. surgeon made and needful done, Now stable. No complaints. VSS . O2 saturations good on FiO2 of 45%. Pt maintaining good temperament and content. Pt decided against Tracheostomy revision which was scheduled by surgery and hence cancelled. Plan: Current treatment as well as ventilator settings reviewed and continued.
[2024-12-08] MEDS: ACET PO (20:56)
[2024-12-08] MEDS: HYDRO PO (20:56)
[2024-12-09] VITALS (10 sets, daily range): BP systolic 96–103; BP diastolic 58–63; PULSE 54–72; RESP 14–18; TEMP 36.2–36.3; O2SAT 98–99
[2024-12-09] MEDS: MIDODRINE 10 MG TABLET PO ×4 (00:30→17:16)
[2024-12-09] MEDS: ACETAMINOPHEN 325 MG TABLET 650 MG PO ×3 (01:54→21:50)
[2024-12-09] MEDS: guaiFENesin Liq 100 MG/5 ML LIQUID 300 MG PO ×4 (02:53→21:50)
[2024-12-09] MEDS: IPRATROPIUM/ALBUTEROL 3 ML AMPUL.NEB INH ×5 (07:37→22:00)
[2024-12-09] MEDS: BUDESONIDE 0.5 MG/2 ML AMPUL.NEB INH ×2 (07:37→18:55)
[2024-12-09] MEDS: VITAMIN B COMPLEX PO (08:49)
[2024-12-09] MEDS: ASCORBIC ACID 500 MG TABLET PO ×2 (08:50→20:15)
[2024-12-09] MEDS: FAMOTIDINE 20 MG TABLET PO ×2 (08:50→20:15)
[2024-12-09] MEDS: DEX/HYPRO/GLY ARTIFICAL TEARS 225 DROP/15 ML BTL BOTH EYES ×2 (08:50→20:15)
[2024-12-09] MEDS: MULTIVITAMIN 1 TAB TABLET PO (08:51)
[2024-12-09] MEDS: SENNOSIDES 8.6 MG TABLET PO ×2 (08:51→20:15)
[2024-12-09] MEDS: ALPRAZolam 0.5 MG TABLET PO ×2 (10:09→20:14)
--- NOTE | 2024-12-09 20:24 | PD.EVENT ---
Documentation for date of: 12/09/24 Event Note Event Note: Patient was scheduled for revision of tracheostomy due to stenosis around the tracheostomy site. I was informed by the nurse that patient has changed her mind and is refusing to proceed with revision. Her surgery is being canceled.
[2024-12-10] VITALS (12 sets, daily range): BP systolic 95–135; BP diastolic 58–75; PULSE 57–80; RESP 14–22; TEMP 36.2–36.8; O2SAT 97–99; BMI 16.9
[2024-12-10] MEDS: IPRATROPIUM/ALBUTEROL 3 ML AMPUL.NEB INH ×5 (02:00→22:10)
[2024-12-10] MEDS: MIDODRINE 10 MG TABLET PO ×2 (05:35→17:06)
[2024-12-10] MEDS: BUDESONIDE 0.5 MG/2 ML AMPUL.NEB INH ×2 (06:17→19:00)
[2024-12-10] MEDS: AMIODARONE 200 MG TABLET PO (09:02)
[2024-12-10] MEDS: VITAMIN B COMPLEX PO (09:02)
[2024-12-10] MEDS: FAMOTIDINE 20 MG TABLET PO ×2 (09:02→20:05)
[2024-12-10] MEDS: ASCORBIC ACID 500 MG TABLET PO ×2 (09:02→20:05)
[2024-12-10] MEDS: DEX/HYPRO/GLY ARTIFICAL TEARS 225 DROP/15 ML BTL BOTH EYES ×2 (09:02→20:05)
[2024-12-10] MEDS: MULTIVITAMIN 1 TAB TABLET PO (09:02)
[2024-12-10] MEDS: SENNOSIDES 8.6 MG TABLET PO ×2 (09:03→20:05)
[2024-12-10] MEDS: ALPRAZolam 0.5 MG TABLET PO ×2 (09:50→21:35)
[2024-12-10] MEDS: guaiFENesin Liq 100 MG/5 ML LIQUID 300 MG PO (11:39)
--- NOTE | 2024-12-10 12:10 | PC.SS ---
Room visit: Resident is laying in bed with head of the bed elevated with call light properly placed with no signs of distress. Resident is alert and oriented with clear speech. Her healthcare proxy is her son Francisco Javier Blakely, both make decisions together. Resident has no changes in care or condition she remains on vent with trach in place and will remain in current care and will have all subacute care needs met by staff. This SSD will continue to make daily contact with resident and monitor for changes in mood and behavior.
[2024-12-10] MEDS: ACETAMINOPHEN 325 MG TABLET 650 MG PO (14:00)
--- NOTE | 2024-12-10 14:10 | PC.SS ---
Resident moods are adequate no changes in mood and behavior. Resident continues to communicate her needs. She is alert and oriented with clear speech. Resident continues to have episodes of target behavior. She prefers to stay in room with curtains closed watching TV. Resident will come out of room for cleaning and will participate in limited activities. She enjoys working with range of motion and enjoys room visits and engaging in conversation with staff. Resident will remain on current medication regimen see physicians orders. This SSD will will continue to make daily contact with resident and monitor for changes in mood or behavior.
[2024-12-10] MEDS: ACET PO (15:40)
[2024-12-10] MEDS: HYDRO PO (15:40)
[2024-12-11] VITALS (11 sets, daily range): BP systolic 98–130; BP diastolic 60–71; PULSE 57–81; RESP 15–22; TEMP 36.3–36.8; O2SAT 97–100
[2024-12-11] MEDS: IPRATROPIUM/ALBUTEROL 3 ML AMPUL.NEB INH ×6 (02:20→21:45)
[2024-12-11] MEDS: ACETAMINOPHEN 325 MG TABLET 650 MG PO ×3 (02:30→23:21)
[2024-12-11] MEDS: guaiFENesin Liq 100 MG/5 ML LIQUID 300 MG PO ×3 (02:30→16:10)
[2024-12-11] MEDS: MIDODRINE 10 MG TABLET PO ×2 (05:29→17:45)
[2024-12-11] MEDS: BUDESONIDE 0.5 MG/2 ML AMPUL.NEB INH (06:00)
[2024-12-11] MEDS: VITAMIN B COMPLEX PO (09:56)
[2024-12-11] MEDS: ASCORBIC ACID 500 MG TABLET PO ×2 (09:57→21:03)
[2024-12-11] MEDS: AMIODARONE 200 MG TABLET PO (09:57)
[2024-12-11] MEDS: DEX/HYPRO/GLY ARTIFICAL TEARS 225 DROP/15 ML BTL BOTH EYES ×2 (09:57→21:04)
[2024-12-11] MEDS: MULTIVITAMIN 1 TAB TABLET PO (09:57)
[2024-12-11] MEDS: SENNOSIDES 8.6 MG TABLET PO ×2 (09:57→21:04)
[2024-12-11] MEDS: FAMOTIDINE 20 MG TABLET PO ×2 (09:57→21:04)
[2024-12-11] MEDS: ALPRAZolam 0.5 MG TABLET PO ×2 (11:15→23:43)
[2024-12-11] MEDS: ACET PO (15:45)
[2024-12-11] MEDS: HYDRO PO (15:45)
--- NOTE | 2024-12-11 15:59 | PC.NURSE ---
Late entry for 12/10/24 Dr Salazar made rounds, no new orders made
[2024-12-12] VITALS (12 sets, daily range): BP systolic 92–132; BP diastolic 52–69; PULSE 58–85; RESP 14–21; TEMP 36.2–36.4; O2SAT 95–100
[2024-12-12] MEDS: MIDODRINE 10 MG TABLET PO ×2 (00:50→12:00)
[2024-12-12] MEDS: guaiFENesin Liq 100 MG/5 ML LIQUID 300 MG PO ×3 (00:51→22:20)
[2024-12-12] MEDS: IPRATROPIUM/ALBUTEROL 3 ML AMPUL.NEB INH ×6 (02:00→22:10)
[2024-12-12] MEDS: BUDESONIDE 0.5 MG/2 ML AMPUL.NEB INH (06:10)
[2024-12-12] MEDS: HYDRO PO (06:50)
[2024-12-12] MEDS: ACET PO (06:50)
[2024-12-12] MEDS: VITAMIN B COMPLEX PO (09:18)
[2024-12-12] MEDS: AMIODARONE 200 MG TABLET PO (09:19)
[2024-12-12] MEDS: FAMOTIDINE 20 MG TABLET PO ×2 (09:19→20:55)
[2024-12-12] MEDS: ASCORBIC ACID 500 MG TABLET PO ×2 (09:19→20:55)
[2024-12-12] MEDS: SENNOSIDES 8.6 MG TABLET PO ×2 (09:20→20:55)
[2024-12-12] MEDS: MULTIVITAMIN 1 TAB TABLET PO (09:20)
--- NOTE | 2024-12-12 09:35 | PD.SAPROG ---
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 (2) Chronic respiratory failure with hypoxia and hypercapnia: Status: Chronic (3) Ventilator dependent: Status: Chronic (4) Congestive heart failure: Status: Chronic (5) Chronic obstructive pulmonary disease, unspecified: Status: Chronic (6) Atrial fibrillation: Status: Chronic (7) Tracheostomy in place: Status: Chronic (8) Chronic anemia: Status: Chronic SUBJECTIVE Fever:: none GI:: none Shortness of Breath:: unchanged GI:: nausea Pain:: none OBJECTIVE Most recent vital signs: Last Vital Signs Temp 97.1 F 12/12/24 06:00 Pulse 78 12/12/24 09:19 Resp 21 H 12/12/24 06:10 BP 102/69 12/12/24 09:19 Pulse Ox 98 12/12/24 06:10 O2 Del Method Mechanical Ventilation 12/12/24 06:00 FiO2 40 12/12/24 06:10 Neurological:: alert Speech:: nods head, mouths words and appropriate Answers questions:: yes Respiratory:: shallow breathing and rhonchi Cardiovascular: irregular Abdomen: soft Tracheostomy:: to ventilator Feeding per:: po ASSESSMENT & PLAN Assessment: stable. Tolerating ventilatory support. Not weanable because of generalized weakness. Tolerating feeding. Prognosis is very guarded. Patient aware. Tracheostomy revision done surgically. Psychotropics: Xanax 0.5 mgs bid has really done well to settle her anxiety. no side effects seen. She does not do well on lower titration of anxiety meds. No new issues. Had a bedside conversation on quality of life and end of life care at pt's request. Pt remains comfortable on current meds. 08-11-24 had a detailed conversation with pt's son about progressively worsening condition as expected in end stage COPD ventilator dependent and now more weak/inability to thrive. Code status was discussed and the extremely poor prognosis. 08-16-24 Pt's Hb was critical and hence ordered two units packed rbcs. Pt was in no distress. Post infusion levels are improved. No new complaints 09-23-24: She had an episode of being less responsive today but recovered quickly and blood gases checked stat which were normal ph 7.43, but PaO2 was low at 50mm Hg and saturations were good at 97%. Recently transferred to the ER for respiratory distress and dropping O2 saturations. Received back with diagnosis of Pneumonia and on antibiotics. stable and no fever. Regular tracheostomy change was difficult for the respiratroy tech and hence request to Gen. surgeon made and needful done, Now stable. No complaints. VSS . O2 saturations good on FiO2 of 45%. Pt maintaining good temperament and content. Pt decided against Tracheostomy revision which was scheduled by surgery and hence cancelled. Comfortable. Plan: Current treatment as well as ventilator settings reviewed and continued.
[2024-12-12] MEDS: ALPRAZolam 0.5 MG TABLET PO (15:16)
[2024-12-12] MEDS: ACETAMINOPHEN 325 MG TABLET 650 MG PO (20:56)
[2024-12-13] VITALS (10 sets, daily range): BP systolic 106–121; BP diastolic 55–65; PULSE 56–78; RESP 15–22; TEMP 36.6–36.9; O2SAT 98–99
[2024-12-13] MEDS: ALPRAZolam 0.5 MG TABLET PO ×2 (00:05→15:52)
[2024-12-13] MEDS: IPRATROPIUM/ALBUTEROL 3 ML AMPUL.NEB INH ×6 (02:48→22:15)
[2024-12-13] MEDS: guaiFENesin Liq 100 MG/5 ML LIQUID 300 MG PO ×2 (04:55→20:00)
[2024-12-13] MEDS: ACET PO (05:01)
[2024-12-13] MEDS: HYDRO PO (05:01)
[2024-12-13] MEDS: MIDODRINE 10 MG TABLET PO ×3 (05:01→17:44)
[2024-12-13] MEDS: VITAMIN B COMPLEX PO (08:54)
[2024-12-13] MEDS: ASCORBIC ACID 500 MG TABLET PO ×2 (08:55→20:00)
[2024-12-13] MEDS: FAMOTIDINE 20 MG TABLET PO ×2 (08:55→20:00)
[2024-12-13] MEDS: MULTIVITAMIN 1 TAB TABLET PO (08:56)
[2024-12-13] MEDS: SENNOSIDES 8.6 MG TABLET PO ×2 (08:56→20:00)
--- NOTE | 2024-12-13 15:35 | PC.SS ---
Resident is known to marcy in her room, she keeps a large stock of bottled water. 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 This SSD spoke with resident at bedside regarding the large amount of water in her room. This SSD also spoke with resident about the importance of keeping room clean and free from pilling and stacking. Resident agreed to allow this SSD to remove all excess water and informed her some scott would be left at bed side for her. Resident is laying in bed in good spirits and being social with staff. No questions or concerns from resident.
[2024-12-13] MEDS: BUDESONIDE 0.5 MG/2 ML AMPUL.NEB INH (18:10)
[2024-12-13] MEDS: DEX/HYPRO/GLY ARTIFICAL TEARS 225 DROP/15 ML BTL BOTH EYES (20:00)
[2024-12-14] VITALS (10 sets, daily range): BP systolic 102–130; BP diastolic 65–68; PULSE 51–74; RESP 14–23; TEMP 36.2–36.6; O2SAT 97–99
[2024-12-14] MEDS: IPRATROPIUM/ALBUTEROL 3 ML AMPUL.NEB INH ×6 (02:05→22:00)
[2024-12-14] MEDS: guaiFENesin Liq 100 MG/5 ML LIQUID 300 MG PO ×3 (07:11→23:50)
[2024-12-14] MEDS: HYDRO PO ×2 (08:17→18:50)
[2024-12-14] MEDS: VITAMIN B COMPLEX PO (08:17)
[2024-12-14] MEDS: ACET PO ×2 (08:17→18:50)
[2024-12-14] MEDS: AMIODARONE 200 MG TABLET PO (08:18)
[2024-12-14] MEDS: MULTIVITAMIN 1 TAB TABLET PO (08:19)
[2024-12-14] MEDS: FAMOTIDINE 20 MG TABLET PO ×2 (08:19→20:57)
[2024-12-14] MEDS: ASCORBIC ACID 500 MG TABLET PO ×2 (08:19→21:43)
[2024-12-14] MEDS: SENNOSIDES 8.6 MG TABLET PO ×2 (08:19→20:57)
[2024-12-14] MEDS: DEX/HYPRO/GLY ARTIFICAL TEARS 225 DROP/15 ML BTL BOTH EYES (08:19)
[2024-12-14] MEDS: MIDODRINE 10 MG TABLET PO ×2 (11:55)
[2024-12-14] MEDS: ALPRAZolam 0.5 MG TABLET PO (17:17)
--- NOTE | 2024-12-14 19:07 | PC.NURSE ---
Resident currently on Xanax 0.5 mg every 8 hours as needed. Team reviewed resident's medication and agreed to decrease it to 0.5 mg every 12 hours PRN and to continue monitor behavior. Resident made aware.
[2024-12-14] MEDS: MAG HYDROX/ALUMINUM HYD/SIMETH 355 ML BTL 30 ML PO (19:47)
[2024-12-14] MEDS: BUDESONIDE 0.5 MG/2 ML AMPUL.NEB INH (22:00)
[2024-12-15] VITALS (12 sets, daily range): BP systolic 103–113; BP diastolic 55–69; PULSE 54–84; RESP 16–22; TEMP 36.2–36.7; O2SAT 97–100
[2024-12-15] MEDS: MIDODRINE 10 MG TABLET PO ×4 (00:14→18:00)
[2024-12-15] MEDS: IPRATROPIUM/ALBUTEROL 3 ML AMPUL.NEB INH ×6 (02:05→22:00)
[2024-12-15] MEDS: ACETAMINOPHEN 325 MG TABLET 650 MG PO ×2 (03:03→22:06)
[2024-12-15] MEDS: BUDESONIDE 0.5 MG/2 ML AMPUL.NEB INH ×2 (07:00→18:20)
[2024-12-15] MEDS: AMIODARONE 200 MG TABLET PO (08:02)
[2024-12-15] MEDS: VITAMIN B COMPLEX PO (08:02)
[2024-12-15] MEDS: FAMOTIDINE 20 MG TABLET PO ×2 (08:03→20:55)
[2024-12-15] MEDS: ASCORBIC ACID 500 MG TABLET PO ×2 (08:03→20:55)
[2024-12-15] MEDS: DEX/HYPRO/GLY ARTIFICAL TEARS 225 DROP/15 ML BTL BOTH EYES ×2 (08:03→20:55)
[2024-12-15] MEDS: SENNOSIDES 8.6 MG TABLET PO ×2 (08:03→20:55)
[2024-12-15] MEDS: MULTIVITAMIN 1 TAB TABLET PO (08:03)
[2024-12-15] MEDS: ALPRAZolam 0.5 MG TABLET PO ×2 (08:30→20:30)
[2024-12-15] MEDS: guaiFENesin Liq 100 MG/5 ML LIQUID 300 MG PO (15:30)
[2024-12-15] MEDS: ACET PO (16:00)
[2024-12-15] MEDS: HYDRO PO (16:00)
[2024-12-15] MEDS: BISACODYL 10 MG SUPP.RECT PR (18:40)
--- NOTE | 2024-12-15 19:09 | PC.NURSE ---
Resident is awake and alert with no complaints of discomfort. No behaviors noted today, resident had a good day, will continue to monitor.
[2024-12-16] VITALS (12 sets, daily range): BP systolic 113–148; BP diastolic 60–76; PULSE 60–77; RESP 16–23; TEMP 36.3–36.7; O2SAT 97–100
[2024-12-16] MEDS: IPRATROPIUM/ALBUTEROL 3 ML AMPUL.NEB INH ×6 (02:15→22:05)
[2024-12-16] MEDS: guaiFENesin Liq 100 MG/5 ML LIQUID 300 MG PO ×2 (02:49→15:00)
[2024-12-16] MEDS: MIDODRINE 10 MG TABLET PO ×2 (05:21→12:00)
--- NOTE | 2024-12-16 06:42 | PC.NURSE ---
resident laying in bed and watching TV at this time. no behavioral changes noted due to changed of Xanax frequency from Q 8 hrs to 12 Hrs. will continue to monitor.
[2024-12-16] MEDS: BUDESONIDE 0.5 MG/2 ML AMPUL.NEB INH ×2 (07:00→18:40)
[2024-12-16] MEDS: AMIODARONE 200 MG TABLET PO (08:16)
[2024-12-16] MEDS: ASCORBIC ACID 500 MG TABLET PO ×2 (08:17→20:16)
[2024-12-16] MEDS: DEX/HYPRO/GLY ARTIFICAL TEARS 225 DROP/15 ML BTL BOTH EYES ×2 (08:17→20:16)
[2024-12-16] MEDS: FAMOTIDINE 20 MG TABLET PO ×2 (08:17→20:16)
[2024-12-16] MEDS: MULTIVITAMIN 1 TAB TABLET PO (08:17)
[2024-12-16] MEDS: VITAMIN B COMPLEX PO (08:18)
[2024-12-16] MEDS: SENNOSIDES 8.6 MG TABLET PO ×2 (08:18→20:16)
[2024-12-16] MEDS: ALPRAZolam 0.5 MG TABLET PO ×2 (09:00→21:07)
[2024-12-16] MEDS: ACETAMINOPHEN 325 MG TABLET 650 MG PO (10:36)
--- NOTE | 2024-12-16 15:17 | PD.SAPROG ---
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 (2) Chronic respiratory failure with hypoxia and hypercapnia: Status: Chronic (3) Ventilator dependent: Status: Chronic (4) Congestive heart failure: Status: Chronic (5) Chronic obstructive pulmonary disease, unspecified: Status: Chronic (6) Atrial fibrillation: Status: Chronic (7) Tracheostomy in place: Status: Chronic (8) Chronic anemia: Status: Chronic SUBJECTIVE Fever:: none GI:: none Shortness of Breath:: unchanged GI:: nausea Pain:: none OBJECTIVE Most recent vital signs: Last Vital Signs Temp 97.3 F 12/16/24 12:00 Pulse 69 12/16/24 14:00 Resp 18 12/16/24 14:00 BP 119/66 12/16/24 12:00 Pulse Ox 99 12/16/24 14:00 O2 Del Method Mechanical Ventilation 12/16/24 06:00 FiO2 40 12/16/24 14:00 Neurological:: alert Speech:: nods head, mouths words and appropriate Answers questions:: yes Respiratory:: shallow breathing and rhonchi Cardiovascular: irregular Abdomen: soft Tracheostomy:: to ventilator Feeding per:: po ASSESSMENT & PLAN Assessment: stable. Tolerating ventilatory support. Not weanable because of generalized weakness. Tolerating feeding. Prognosis is very guarded. Patient aware. Tracheostomy revision done surgically. Psychotropics: Xanax 0.5 mgs bid has really done well to settle her anxiety. no side effects seen. She does not do well on lower titration of anxiety meds. No new issues. Had a bedside conversation on quality of life and end of life care at pt's request. Pt remains comfortable on current meds. 08-11-24 had a detailed conversation with pt's son about progressively worsening condition as expected in end stage COPD ventilator dependent and now more weak/inability to thrive. Code status was discussed and the extremely poor prognosis. 08-16-24 Pt's Hb was critical and hence ordered two units packed rbcs. Pt was in no distress. Post infusion levels are improved. No new complaints 09-23-24: She had an episode of being less responsive today but recovered quickly and blood gases checked stat which were normal ph 7.43, but PaO2 was low at 50mm Hg and saturations were good at 97%. Recently transferred to the ER for respiratory distress and dropping O2 saturations. Received back with diagnosis of Pneumonia and on antibiotics. stable and no fever. Regular tracheostomy change was difficult for the respiratroy tech and hence request to Gen. surgeon made and needful done, Now stable. No complaints. VSS . O2 saturations good on FiO2 of 45%. Pt maintaining good temperament and content. Pt decided against Tracheostomy revision which was scheduled by surgery and hence cancelled. Comfortable. Anxiety medicine not being used often hence decreased to q 12 hrly prn Plan: Current treatment as well as ventilator settings reviewed and continued.
[2024-12-16] MEDS: HYDRO PO (15:30)
[2024-12-16] MEDS: ACET PO (15:30)
--- NOTE | 2024-12-16 19:28 | PC.NURSE ---
Resident is awake and alert, in o apparent distress.No behaviors this shift, very cheerful, no complaints of anxiety. Will continue to monitor
[2024-12-17] VITALS (12 sets, daily range): BP systolic 95–135; BP diastolic 55–73; PULSE 66–81; RESP 14–20; TEMP 36.1–36.5; O2SAT 97–100
[2024-12-17] MEDS: HYDRO PO ×2 (01:05→18:00)
[2024-12-17] MEDS: ACET PO ×2 (01:05→18:00)
[2024-12-17] MEDS: MIDODRINE 10 MG TABLET PO ×3 (01:15→17:00)
[2024-12-17] MEDS: IPRATROPIUM/ALBUTEROL 3 ML AMPUL.NEB INH ×6 (03:00→22:19)
--- NOTE | 2024-12-17 03:12 | PC.NURSE ---
0255-This nurse was summoned to resident room, two ELECTRONIC INDUCTION HARDENER in room with resident, resident trach came out when resident was trying to pull herself up, RT called to bedside, RT placed new trach in without resistance, no bleeding noted, vital sings to be taken every 4 hours for 72hours, made aware, DON aware, resident in room resting with eyes open, call light within reach.
[2024-12-17] MEDS: BUDESONIDE 0.5 MG/2 ML AMPUL.NEB INH ×2 (05:57→18:00)
--- NOTE | 2024-12-17 05:57 | PC.NURSE ---
Francisco Javier Blakely made aware of trach coming out today at 0255, questions answered, explained vital signs will be taken every 4 hours for the next 72 hours.
[2024-12-17] MEDS: MULTIVITAMIN 1 TAB TABLET PO (08:01)
[2024-12-17] MEDS: DEX/HYPRO/GLY ARTIFICAL TEARS 225 DROP/15 ML BTL BOTH EYES ×2 (08:01→20:00)
[2024-12-17] MEDS: AMIODARONE 200 MG TABLET PO (08:01)
[2024-12-17] MEDS: ASCORBIC ACID 500 MG TABLET PO ×2 (08:01→20:00)
[2024-12-17] MEDS: FAMOTIDINE 20 MG TABLET PO ×2 (08:01→20:00)
[2024-12-17] MEDS: VITAMIN B COMPLEX PO (08:02)
[2024-12-17] MEDS: SENNOSIDES 8.6 MG TABLET PO ×2 (08:02→20:00)
[2024-12-17] MEDS: ALPRAZolam 0.5 MG TABLET PO (11:00)
[2024-12-17] MEDS: ACETAMINOPHEN 325 MG TABLET 650 MG PO (16:00)
[2024-12-17] MEDS: guaiFENesin Liq 100 MG/5 ML LIQUID 300 MG PO (16:00)
[2024-12-18] VITALS (12 sets, daily range): BP systolic 103–127; BP diastolic 60–70; PULSE 67–102; RESP 14–20; TEMP 36.4–36.7; O2SAT 96–99
[2024-12-18] MEDS: IPRATROPIUM/ALBUTEROL 3 ML AMPUL.NEB INH ×6 (02:25→22:14)
[2024-12-18] MEDS: BUDESONIDE 0.5 MG/2 ML AMPUL.NEB INH ×2 (06:32→18:03)
[2024-12-18] MEDS: AMIODARONE 200 MG TABLET PO (08:13)
[2024-12-18] MEDS: MULTIVITAMIN 1 TAB TABLET PO (08:14)
[2024-12-18] MEDS: FAMOTIDINE 20 MG TABLET PO ×2 (08:14→20:00)
[2024-12-18] MEDS: SENNOSIDES 8.6 MG TABLET PO ×2 (08:14→20:00)
[2024-12-18] MEDS: DEX/HYPRO/GLY ARTIFICAL TEARS 225 DROP/15 ML BTL BOTH EYES ×2 (08:14→20:00)
[2024-12-18] MEDS: ASCORBIC ACID 500 MG TABLET PO ×2 (08:14→20:00)
[2024-12-18] MEDS: ALPRAZolam 0.5 MG TABLET PO ×2 (09:17→21:25)
[2024-12-18] MEDS: MIDODRINE 10 MG TABLET PO ×2 (11:51→17:07)
[2024-12-18] MEDS: guaiFENesin Liq 100 MG/5 ML LIQUID 300 MG PO (19:30)
[2024-12-18] MEDS: HYDRO PO (23:00)
[2024-12-18] MEDS: ACET PO (23:00)
[2024-12-19] VITALS (13 sets, daily range): BP systolic 110–133; BP diastolic 61–70; PULSE 63–83; RESP 14–21; TEMP 36.1–37.1; O2SAT 97–99
[2024-12-19] MEDS: MIDODRINE 10 MG TABLET PO ×3 (05:22→11:30)
[2024-12-19] MEDS: BUDESONIDE 0.5 MG/2 ML AMPUL.NEB INH ×2 (06:12→18:22)
[2024-12-19] MEDS: IPRATROPIUM/ALBUTEROL 3 ML AMPUL.NEB INH ×5 (06:12→22:18)
[2024-12-19] MEDS: AMIODARONE 200 MG TABLET PO (08:54)
[2024-12-19] MEDS: ASCORBIC ACID 500 MG TABLET PO ×2 (08:54→20:16)
[2024-12-19] MEDS: FAMOTIDINE 20 MG TABLET PO ×2 (08:55→20:17)
[2024-12-19] MEDS: MULTIVITAMIN 1 TAB TABLET PO (08:55)
[2024-12-19] MEDS: VITAMIN B COMPLEX PO (08:55)
[2024-12-19] MEDS: DEX/HYPRO/GLY ARTIFICAL TEARS 225 DROP/15 ML BTL BOTH EYES ×2 (08:55→20:16)
[2024-12-19] MEDS: SENNOSIDES 8.6 MG TABLET PO ×2 (08:55→20:17)
[2024-12-19] MEDS: ALPRAZolam 0.5 MG TABLET PO ×2 (09:30→21:45)
[2024-12-19] MEDS: guaiFENesin Liq 100 MG/5 ML LIQUID 300 MG PO (17:30)
[2024-12-19] MEDS: ACETAMINOPHEN 325 MG TABLET 650 MG PO (21:12)
[2024-12-19] MEDS: HYDRO PO (22:02)
[2024-12-19] MEDS: ACET PO (22:02)
[2024-12-20] VITALS (10 sets, daily range): BP systolic 95–111; BP diastolic 55–68; PULSE 60–78; RESP 14–23; TEMP 36.3–36.6; O2SAT 98–100
[2024-12-20] MEDS: MIDODRINE 10 MG TABLET PO ×4 (00:15→17:30)
[2024-12-20] MEDS: IPRATROPIUM/ALBUTEROL 3 ML AMPUL.NEB INH ×5 (02:38→22:57)
[2024-12-20] MEDS: BUDESONIDE 0.5 MG/2 ML AMPUL.NEB INH ×2 (06:17→19:21)
[2024-12-20] MEDS: ACETAMINOPHEN 325 MG TABLET 650 MG PO (07:15)
[2024-12-20] MEDS: ASCORBIC ACID 500 MG TABLET PO ×2 (08:40→21:17)
[2024-12-20] MEDS: SENNOSIDES 8.6 MG TABLET PO ×2 (08:40→21:17)
[2024-12-20] MEDS: FAMOTIDINE 20 MG TABLET PO ×2 (08:40→21:16)
[2024-12-20] MEDS: DEX/HYPRO/GLY ARTIFICAL TEARS 225 DROP/15 ML BTL BOTH EYES ×2 (08:40→21:35)
[2024-12-20] MEDS: VITAMIN B COMPLEX PO (08:40)
[2024-12-20] MEDS: MULTIVITAMIN 1 TAB TABLET PO (08:40)
[2024-12-20] MEDS: ALPRAZolam 0.5 MG TABLET PO ×2 (10:30→22:30)
[2024-12-20] MEDS: guaiFENesin Liq 100 MG/5 ML LIQUID 300 MG PO ×2 (11:30→17:30)
[2024-12-20] MEDS: ACET PO (18:30)
[2024-12-20] MEDS: HYDRO PO (18:30)
--- NOTE | 2024-12-20 18:51 | PC.NURSE ---
Resident is awake and alert, in no distress. vital signs are stable.Resident compliant is coughing which she ask for Xanax.Will continue to monitor.
--- NOTE | 2024-12-20 22:41 | PD.SAPROG ---
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 (2) Chronic respiratory failure with hypoxia and hypercapnia: Status: Chronic (3) Ventilator dependent: Status: Chronic (4) Congestive heart failure: Status: Chronic (5) Chronic obstructive pulmonary disease, unspecified: Status: Chronic (6) Atrial fibrillation: Status: Chronic (7) Tracheostomy in place: Status: Chronic (8) Chronic anemia: Status: Chronic SUBJECTIVE Fever:: none GI:: none Shortness of Breath:: unchanged GI:: nausea Pain:: none OBJECTIVE Most recent vital signs: Last Vital Signs Temp 97.8 F 12/20/24 17:55 Pulse 78 12/20/24 17:55 Resp 17 12/20/24 17:55 BP 111/68 12/20/24 17:55 Pulse Ox 100 12/20/24 17:55 O2 Del Method Mechanical Ventilation 12/20/24 17:55 FiO2 40 12/20/24 12:32 Neurological:: alert Speech:: nods head, mouths words and appropriate Answers questions:: yes Respiratory:: shallow breathing and rhonchi Cardiovascular: irregular Abdomen: soft Tracheostomy:: to ventilator Feeding per:: po ASSESSMENT & PLAN Assessment: stable. Tolerating ventilatory support. Not weanable because of generalized weakness. Tolerating feeding. Prognosis is very guarded. Patient aware. Tracheostomy revision done surgically. Psychotropics: Xanax 0.5 mgs bid has really done well to settle her anxiety. no side effects seen. She does not do well on lower titration of anxiety meds. No new issues. Had a bedside conversation on quality of life and end of life care at pt's request. Pt remains comfortable on current meds. 08-11-24 had a detailed conversation with pt's son about progressively worsening condition as expected in end stage COPD ventilator dependent and now more weak/inability to thrive. Code status was discussed and the extremely poor prognosis. 08-16-24 Pt's Hb was critical and hence ordered two units packed rbcs. Pt was in no distress. Post infusion levels are improved. No new complaints 09-23-24: She had an episode of being less responsive today but recovered quickly and blood gases checked stat which were normal ph 7.43, but PaO2 was low at 50mm Hg and saturations were good at 97%. Recently transferred to the ER for respiratory distress and dropping O2 saturations. Received back with diagnosis of Pneumonia and on antibiotics. stable and no fever. Regular tracheostomy change was difficult for the respiratroy tech and hence request to Gen. surgeon made and needful done, Now stable. No complaints. VSS . O2 saturations good on FiO2 of 45%. Pt maintaining good temperament and content. Pt decided against Tracheostomy revision which was scheduled by surgery and hence cancelled. Comfortable. Anxiety medicine not being used often hence decreased to q 12 hrly prn. tolerating it well Plan: Current treatment as well as ventilator settings reviewed and continued.
[2024-12-21] VITALS (12 sets, daily range): BP systolic 100–137; BP diastolic 60–78; PULSE 64–97; RESP 14–21; TEMP 36.3–36.7; O2SAT 97–100
[2024-12-21] MEDS: MIDODRINE 10 MG TABLET PO ×3 (00:36→18:01)
[2024-12-21] MEDS: guaiFENesin Liq 100 MG/5 ML LIQUID 300 MG PO ×3 (00:36→19:30)
[2024-12-21] MEDS: IPRATROPIUM/ALBUTEROL 3 ML AMPUL.NEB INH ×6 (03:03→22:11)
[2024-12-21] MEDS: ACET PO ×2 (03:10→16:15)
[2024-12-21] MEDS: HYDRO PO ×2 (03:10→16:15)
[2024-12-21] MEDS: BUDESONIDE 0.5 MG/2 ML AMPUL.NEB INH ×2 (06:38→18:23)
[2024-12-21] MEDS: AMIODARONE 200 MG TABLET PO (08:58)
[2024-12-21] MEDS: FAMOTIDINE 20 MG TABLET PO ×2 (08:59→20:00)
[2024-12-21] MEDS: SENNOSIDES 8.6 MG TABLET PO ×2 (08:59→20:00)
[2024-12-21] MEDS: ASCORBIC ACID 500 MG TABLET PO ×2 (08:59→20:00)
[2024-12-21] MEDS: MULTIVITAMIN 1 TAB TABLET PO (08:59)
[2024-12-21] MEDS: DEX/HYPRO/GLY ARTIFICAL TEARS 225 DROP/15 ML BTL BOTH EYES ×2 (08:59→20:00)
[2024-12-21] MEDS: VITAMIN B COMPLEX PO (09:00)
[2024-12-21] MEDS: SILVER NITRATE APPLICATOR 1 EACH STICK..EA. TOP (11:00)
[2024-12-21] MEDS: ALPRAZolam 0.5 MG TABLET PO (11:21)
--- NOTE | 2024-12-21 12:18 | PC.NURSE ---
Resident awake and watching TV. Resident in pleasant mood and no changes in behavior noted due to frequency change in medication.
[2024-12-21] MEDS: ACETAMINOPHEN 325 MG TABLET 650 MG PO (22:10)
[2024-12-22] VITALS (13 sets, daily range): BP systolic 100–118; BP diastolic 53–67; PULSE 65–99; RESP 14–18; TEMP 36.5–36.9; O2SAT 96–100
[2024-12-22] MEDS: IPRATROPIUM/ALBUTEROL 3 ML AMPUL.NEB INH ×6 (02:15→22:20)
[2024-12-22] MEDS: MIDODRINE 10 MG TABLET PO ×4 (05:51→17:00)
[2024-12-22] MEDS: BUDESONIDE 0.5 MG/2 ML AMPUL.NEB INH ×2 (06:33→18:55)
[2024-12-22] MEDS: AMIODARONE 200 MG TABLET PO (09:17)
[2024-12-22] MEDS: MULTIVITAMIN 1 TAB TABLET PO (09:18)
[2024-12-22] MEDS: FAMOTIDINE 20 MG TABLET PO ×2 (09:18→20:52)
[2024-12-22] MEDS: ASCORBIC ACID 500 MG TABLET PO ×2 (09:18→20:53)
[2024-12-22] MEDS: DEX/HYPRO/GLY ARTIFICAL TEARS 225 DROP/15 ML BTL BOTH EYES (09:18)
[2024-12-22] MEDS: SENNOSIDES 8.6 MG TABLET PO ×2 (09:20→20:52)
[2024-12-22] MEDS: ALPRAZolam 0.5 MG TABLET PO ×2 (09:20→21:30)
[2024-12-22] MEDS: VITAMIN B COMPLEX PO (09:20)
--- NOTE | 2024-12-22 14:24 | PC.SS ---
Room visit: Resident has been in good spirits she enjoys having room visits and engaging in conversation with staff. Resident says she stays up at night watching programs on TV, she says there is good classics on at night. Resident tends to sleep during the day as she stays up at night. Resident will continue to have daily room visits and be offered support visits.
[2024-12-22] MEDS: ACET PO (15:30)
[2024-12-22] MEDS: HYDRO PO (15:30)
--- NOTE | 2024-12-22 16:01 | PC.NURSE ---
Resident is awake and alert, no apparent behaviors today, continue to ask for Xanax for shortness of breath. 02 sat. 99%.will continue to monitor.
[2024-12-22] MEDS: guaiFENesin Liq 100 MG/5 ML LIQUID 300 MG PO ×2 (17:00→23:56)
[2024-12-22] MEDS: ACETAMINOPHEN 325 MG TABLET 650 MG PO (19:00)
[2024-12-23] VITALS (13 sets, daily range): BP systolic 93–135; BP diastolic 51–80; PULSE 56–77; RESP 14–19; TEMP 36.4–36.9; O2SAT 97–100
[2024-12-23] MEDS: MIDODRINE 10 MG TABLET PO ×4 (00:21→17:30)
[2024-12-23] MEDS: HYDRO PO ×2 (00:46→19:33)
[2024-12-23] MEDS: ACET PO ×2 (00:46→19:33)
[2024-12-23] MEDS: IPRATROPIUM/ALBUTEROL 3 ML AMPUL.NEB INH ×6 (02:00→22:00)
[2024-12-23] MEDS: BUDESONIDE 0.5 MG/2 ML AMPUL.NEB INH ×2 (06:31→18:15)
[2024-12-23] MEDS: MULTIVITAMIN 1 TAB TABLET PO (08:55)
[2024-12-23] MEDS: FAMOTIDINE 20 MG TABLET PO ×2 (08:55→20:57)
[2024-12-23] MEDS: ASCORBIC ACID 500 MG TABLET PO ×2 (08:55→20:57)
[2024-12-23] MEDS: DEX/HYPRO/GLY ARTIFICAL TEARS 225 DROP/15 ML BTL BOTH EYES ×2 (08:55→20:57)
[2024-12-23] MEDS: SENNOSIDES 8.6 MG TABLET PO ×2 (08:56→20:57)
[2024-12-23] MEDS: VITAMIN B COMPLEX PO (08:56)
[2024-12-23] MEDS: ALPRAZolam 0.5 MG TABLET PO (11:07)
[2024-12-23] MEDS: guaiFENesin Liq 100 MG/5 ML LIQUID 300 MG PO (13:05)
[2024-12-23] MEDS: ACETAMINOPHEN 325 MG TABLET 650 MG PO (15:41)
--- NOTE | 2024-12-23 19:08 | PC.NURSE ---
pt has frequency of medications decreased to every 12 hours. The patient has no increase in behaviors. The patient has been stable with no complaints. Will continue to monitor for changes.
[2024-12-24] VITALS (13 sets, daily range): BP systolic 107–130; BP diastolic 57–70; PULSE 59–82; RESP 14–18; TEMP 35.9–36.4; O2SAT 96–100
[2024-12-24] MEDS: ALPRAZolam 0.5 MG TABLET PO ×2 (00:05→17:26)
[2024-12-24] MEDS: MIDODRINE 10 MG TABLET PO ×2 (00:12→05:35)
[2024-12-24] MEDS: IPRATROPIUM/ALBUTEROL 3 ML AMPUL.NEB INH ×6 (02:00→22:20)
[2024-12-24] MEDS: BUDESONIDE 0.5 MG/2 ML AMPUL.NEB INH (07:00)
[2024-12-24] MEDS: ASCORBIC ACID 500 MG TABLET PO ×2 (09:00→20:51)
[2024-12-24] MEDS: DEX/HYPRO/GLY ARTIFICAL TEARS 225 DROP/15 ML BTL BOTH EYES ×2 (09:00→20:50)
[2024-12-24] MEDS: SENNOSIDES 8.6 MG TABLET PO ×2 (09:00→21:19)
[2024-12-24] MEDS: FAMOTIDINE 20 MG TABLET PO ×2 (09:00→20:50)
[2024-12-24] MEDS: MULTIVITAMIN 1 TAB TABLET PO (09:00)
[2024-12-24] MEDS: AMIODARONE 200 MG TABLET PO (09:00)
[2024-12-24] MEDS: VITAMIN B COMPLEX PO (09:01)
[2024-12-24] MEDS: ACET PO ×2 (10:58→23:38)
[2024-12-24] MEDS: HYDRO PO ×2 (10:58→23:38)
--- NOTE | 2024-12-24 17:22 | PC.NURSE ---
Seen by Dr Salazar,no new orders made.
[2024-12-24] MEDS: guaiFENesin Liq 100 MG/5 ML LIQUID 300 MG PO ×2 (17:26→23:38)
--- NOTE | 2024-12-24 20:47 | PD.SAPROG ---
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 (2) Chronic respiratory failure with hypoxia and hypercapnia: Status: Chronic (3) Ventilator dependent: Status: Chronic (4) Congestive heart failure: Status: Chronic (5) Chronic obstructive pulmonary disease, unspecified: Status: Chronic (6) Atrial fibrillation: Status: Chronic (7) Tracheostomy in place: Status: Chronic (8) Chronic anemia: Status: Chronic SUBJECTIVE Fever:: none GI:: none Shortness of Breath:: unchanged GI:: nausea Pain:: none OBJECTIVE Most recent vital signs: Last Vital Signs Temp 96.8 F 12/24/24 17:26 Pulse 69 12/24/24 17:26 Resp 18 12/24/24 17:26 BP 130/61 12/24/24 17:26 Pulse Ox 97 12/24/24 17:26 O2 Del Method Mechanical Ventilation 12/24/24 17:26 FiO2 40 12/24/24 14:20 Neurological:: alert Speech:: nods head, mouths words and appropriate Answers questions:: yes Respiratory:: shallow breathing and rhonchi Cardiovascular: irregular Abdomen: soft Tracheostomy:: to ventilator Feeding per:: po ASSESSMENT & PLAN Assessment: stable. Tolerating ventilatory support. Not weanable because of generalized weakness. Tolerating feeding. Prognosis is very guarded. Patient aware. Tracheostomy revision done surgically. Psychotropics: Xanax 0.5 mgs bid has really done well to settle her anxiety. no side effects seen. She does not do well on lower titration of anxiety meds. No new issues. Had a bedside conversation on quality of life and end of life care at pt's request. Pt remains comfortable on current meds. 08-11-24 had a detailed conversation with pt's son about progressively worsening condition as expected in end stage COPD ventilator dependent and now more weak/inability to thrive. Code status was discussed and the extremely poor prognosis. 08-16-24 Pt's Hb was critical and hence ordered two units packed rbcs. Pt was in no distress. Post infusion levels are improved. No new complaints 09-23-24: She had an episode of being less responsive today but recovered quickly and blood gases checked stat which were normal ph 7.43, but PaO2 was low at 50mm Hg and saturations were good at 97%. Recently transferred to the ER for respiratory distress and dropping O2 saturations. Received back with diagnosis of Pneumonia and on antibiotics. stable and no fever. Regular tracheostomy change was difficult for the respiratroy tech and hence request to Gen. surgeon made and needful done, Now stable. No complaints. VSS . O2 saturations good on FiO2 of 45%. Pt maintaining good temperament and content. Pt decided against Tracheostomy revision which was scheduled by surgery and hence cancelled. Comfortable. Anxiety medicine not being used often hence decreased to q 12 hrly prn. tolerating it well. Pt's son visits her from time to time in person and kept updated Plan: Current treatment as well as ventilator settings reviewed and continued.
[2024-12-25] VITALS (13 sets, daily range): BP systolic 94–135; BP diastolic 60–75; PULSE 63–94; RESP 14–22; TEMP 36.4–36.8; O2SAT 96–100
[2024-12-25] MEDS: MIDODRINE 10 MG TABLET PO ×3 (00:18→12:00)
[2024-12-25] MEDS: IPRATROPIUM/ALBUTEROL 3 ML AMPUL.NEB INH ×6 (02:00→22:15)
[2024-12-25] MEDS: ALPRAZolam 0.5 MG TABLET PO ×2 (07:10→21:30)
[2024-12-25] MEDS: BUDESONIDE 0.5 MG/2 ML AMPUL.NEB INH ×2 (07:15→18:40)
[2024-12-25] MEDS: AMIODARONE 200 MG TABLET PO (08:03)
[2024-12-25] MEDS: DEX/HYPRO/GLY ARTIFICAL TEARS 225 DROP/15 ML BTL BOTH EYES ×2 (08:05→20:54)
[2024-12-25] MEDS: SENNOSIDES 8.6 MG TABLET PO ×2 (08:05→20:53)
[2024-12-25] MEDS: VITAMIN B COMPLEX PO (08:05)
[2024-12-25] MEDS: MULTIVITAMIN 1 TAB TABLET PO (08:05)
[2024-12-25] MEDS: FAMOTIDINE 20 MG TABLET PO ×2 (08:05→20:54)
[2024-12-25] MEDS: ASCORBIC ACID 500 MG TABLET PO ×2 (08:05→20:54)
[2024-12-25] MEDS: guaiFENesin Liq 100 MG/5 ML LIQUID 300 MG PO (15:48)
[2024-12-25] MEDS: ACET PO (17:02)
[2024-12-25] MEDS: HYDRO PO (17:02)
[2024-12-25] MEDS: MAG HYDROX/ALUMINUM HYD/SIMETH 355 ML BTL 30 ML PO (20:50)
[2024-12-25] MEDS: ONDANSETRON HCL 4 MG TABLET PO (21:56)
[2024-12-26] VITALS (10 sets, daily range): BP systolic 92–132; BP diastolic 56–72; PULSE 55–89; RESP 14–19; TEMP 36.1–36.4; O2SAT 98–100
[2024-12-26] MEDS: MIDODRINE 10 MG TABLET PO ×2 (00:38→11:27)
[2024-12-26] MEDS: IPRATROPIUM/ALBUTEROL 3 ML AMPUL.NEB INH ×6 (02:25→23:09)
[2024-12-26] MEDS: BUDESONIDE 0.5 MG/2 ML AMPUL.NEB INH ×2 (06:00→18:10)
[2024-12-26] MEDS: ACETAMINOPHEN 325 MG TABLET 650 MG PO ×2 (06:04→11:34)
[2024-12-26] MEDS: guaiFENesin Liq 100 MG/5 ML LIQUID 300 MG PO ×3 (06:04→21:00)
[2024-12-26] MEDS: AMIODARONE 200 MG TABLET PO (08:02)
[2024-12-26] MEDS: ASCORBIC ACID 500 MG TABLET PO ×2 (08:10→20:53)
[2024-12-26] MEDS: VITAMIN B COMPLEX PO (08:10)
[2024-12-26] MEDS: DEX/HYPRO/GLY ARTIFICAL TEARS 225 DROP/15 ML BTL BOTH EYES ×2 (08:10→20:53)
[2024-12-26] MEDS: SENNOSIDES 8.6 MG TABLET PO ×2 (08:10→20:53)
[2024-12-26] MEDS: MULTIVITAMIN 1 TAB TABLET PO (08:10)
[2024-12-26] MEDS: FAMOTIDINE 20 MG TABLET PO ×2 (08:10→20:53)
[2024-12-26] MEDS: ACET PO (09:34)
[2024-12-26] MEDS: HYDRO PO (09:34)
[2024-12-26] MEDS: ALPRAZolam 0.5 MG TABLET PO (17:06)
--- NOTE | 2024-12-26 18:43 | PC.NURSE ---
Resident was due for suppository but resident refused to have it, she said maybe izzy. if she didnt go she will take it.
[2024-12-27] VITALS (13 sets, daily range): BP systolic 110–143; BP diastolic 55–85; PULSE 63–89; RESP 14–21; TEMP 36.2–37.1; O2SAT 98–100
[2024-12-27] MEDS: MIDODRINE 10 MG TABLET PO ×3 (00:10→17:36)
[2024-12-27] MEDS: IPRATROPIUM/ALBUTEROL 3 ML AMPUL.NEB INH ×6 (02:10→23:00)
[2024-12-27] MEDS: ALPRAZolam 0.5 MG TABLET PO ×2 (07:45→23:31)
[2024-12-27] MEDS: guaiFENesin Liq 100 MG/5 ML LIQUID 300 MG PO ×2 (07:45→16:30)
[2024-12-27] MEDS: ASCORBIC ACID 500 MG TABLET PO ×2 (08:00→21:12)
[2024-12-27] MEDS: SENNOSIDES 8.6 MG TABLET PO ×2 (08:00→21:13)
[2024-12-27] MEDS: MULTIVITAMIN 1 TAB TABLET PO (08:00)
[2024-12-27] MEDS: AMIODARONE 200 MG TABLET PO (08:00)
[2024-12-27] MEDS: VITAMIN B COMPLEX PO (08:00)
[2024-12-27] MEDS: FAMOTIDINE 20 MG TABLET PO ×2 (08:00→21:13)
[2024-12-27] MEDS: ACETAMINOPHEN 325 MG TABLET 650 MG PO (10:40)
[2024-12-27] MEDS: ACET PO ×2 (12:05→21:10)
[2024-12-27] MEDS: HYDRO PO ×2 (12:05→21:10)
--- NOTE | 2024-12-27 14:46 | PC.NURSE ---
Hydrofera blue not available for treatment to stage stage 4 sacrum, wound nurse made aware and said okay to use calcium alginate
[2024-12-27] MEDS: BUDESONIDE 0.5 MG/2 ML AMPUL.NEB INH (18:00)
[2024-12-27] MEDS: DEX/HYPRO/GLY ARTIFICAL TEARS 225 DROP/15 ML BTL BOTH EYES (21:13)
[2024-12-28] VITALS (10 sets, daily range): BP systolic 106–107; BP diastolic 57–64; PULSE 66–82; RESP 14–20; TEMP 36.7–37; O2SAT 98–99
[2024-12-28] MEDS: IPRATROPIUM/ALBUTEROL 3 ML AMPUL.NEB INH ×5 (02:00→22:00)
[2024-12-28] MEDS: BUDESONIDE 0.5 MG/2 ML AMPUL.NEB INH ×2 (06:20→19:10)
[2024-12-28] MEDS: guaiFENesin Liq 100 MG/5 ML LIQUID 300 MG PO ×2 (09:30→17:15)
[2024-12-28] MEDS: AMIODARONE 200 MG TABLET PO (09:30)
[2024-12-28] MEDS: ASCORBIC ACID 500 MG TABLET PO ×2 (09:33→21:16)
[2024-12-28] MEDS: FAMOTIDINE 20 MG TABLET PO ×2 (09:33→21:17)
[2024-12-28] MEDS: VITAMIN B COMPLEX PO (09:33)
[2024-12-28] MEDS: MULTIVITAMIN 1 TAB TABLET PO (09:33)
[2024-12-28] MEDS: SENNOSIDES 8.6 MG TABLET PO ×2 (09:33→21:17)
[2024-12-28] MEDS: MIDODRINE 10 MG TABLET PO ×3 (11:59→21:36)
[2024-12-28] MEDS: ALPRAZolam 0.5 MG TABLET PO (13:15)
[2024-12-28] MEDS: ACET PO (17:13)
[2024-12-28] MEDS: HYDRO PO (17:13)
--- NOTE | 2024-12-28 20:07 | PD.SAPROG ---
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 (2) Chronic respiratory failure with hypoxia and hypercapnia: Status: Chronic (3) Ventilator dependent: Status: Chronic (4) Congestive heart failure: Status: Chronic (5) Chronic obstructive pulmonary disease, unspecified: Status: Chronic (6) Atrial fibrillation: Status: Chronic (7) Tracheostomy in place: Status: Chronic (8) Chronic anemia: Status: Chronic SUBJECTIVE Fever:: none GI:: none Shortness of Breath:: unchanged GI:: nausea Pain:: none OBJECTIVE Most recent vital signs: Last Vital Signs Temp 98.1 F 12/28/24 18:00 Pulse 71 12/28/24 18:00 Resp 16 12/28/24 18:00 BP 106/57 L 12/28/24 18:00 Pulse Ox 99 12/28/24 18:00 O2 Del Method Mechanical Ventilation 12/28/24 18:00 FiO2 40 12/28/24 12:27 Neurological:: alert Speech:: nods head, mouths words and appropriate Answers questions:: yes Respiratory:: shallow breathing and rhonchi Cardiovascular: irregular Abdomen: soft Tracheostomy:: to ventilator Feeding per:: po ASSESSMENT & PLAN Assessment: stable. Tolerating ventilatory support. Not weanable because of generalized weakness. Tolerating feeding. Prognosis is very guarded. Patient aware. Tracheostomy revision done surgically. Psychotropics: Xanax 0.5 mgs bid has really done well to settle her anxiety. no side effects seen. She does not do well on lower titration of anxiety meds. No new issues. Had a bedside conversation on quality of life and end of life care at pt's request. Pt remains comfortable on current meds. 08-11-24 had a detailed conversation with pt's son about progressively worsening condition as expected in end stage COPD ventilator dependent and now more weak/inability to thrive. Code status was discussed and the extremely poor prognosis. 08-16-24 Pt's Hb was critical and hence ordered two units packed rbcs. Pt was in no distress. Post infusion levels are improved. No new complaints 09-23-24: She had an episode of being less responsive today but recovered quickly and blood gases checked stat which were normal ph 7.43, but PaO2 was low at 50mm Hg and saturations were good at 97%. Recently transferred to the ER for respiratory distress and dropping O2 saturations. Received back with diagnosis of Pneumonia and on antibiotics. stable and no fever. Regular tracheostomy change was difficult for the respiratroy tech and hence request to Gen. surgeon made and needful done, Now stable. No complaints. VSS . O2 saturations good on FiO2 of 45%. Pt maintaining good temperament and content. Pt decided against Tracheostomy revision which was scheduled by surgery and hence cancelled. Comfortable. Anxiety medicine not being used often hence decreased to q 12 hrly prn. tolerating it well. Pt's son visits her from time to time in person and kept updated. Tolerating her feeding well Plan: Current treatment as well as ventilator settings reviewed and continued.
[2024-12-28] MEDS: DEX/HYPRO/GLY ARTIFICAL TEARS 225 DROP/15 ML BTL BOTH EYES (21:17)
[2024-12-29] VITALS (12 sets, daily range): BP systolic 109–127; BP diastolic 54–69; PULSE 60–75; RESP 14–22; TEMP 36.3–36.7; O2SAT 96–100
[2024-12-29] MEDS: MIDODRINE 10 MG TABLET PO ×4 (00:29→18:11)
[2024-12-29] MEDS: IPRATROPIUM/ALBUTEROL 3 ML AMPUL.NEB INH ×6 (02:04→22:00)
[2024-12-29] MEDS: ALPRAZolam 0.5 MG TABLET PO (06:29)
[2024-12-29] MEDS: BUDESONIDE 0.5 MG/2 ML AMPUL.NEB INH ×2 (07:00→19:16)
[2024-12-29] MEDS: AMIODARONE 200 MG TABLET PO (09:06)
[2024-12-29] MEDS: ASCORBIC ACID 500 MG TABLET PO ×2 (09:07→20:46)
[2024-12-29] MEDS: FAMOTIDINE 20 MG TABLET PO ×2 (09:08→20:47)
[2024-12-29] MEDS: MULTIVITAMIN 1 TAB TABLET PO (09:08)
[2024-12-29] MEDS: SENNOSIDES 8.6 MG TABLET PO ×2 (09:08→20:47)
[2024-12-29] MEDS: DEX/HYPRO/GLY ARTIFICAL TEARS 225 DROP/15 ML BTL BOTH EYES ×2 (09:08→20:47)
[2024-12-29] MEDS: VITAMIN B COMPLEX PO (09:09)
[2024-12-29] MEDS: guaiFENesin Liq 100 MG/5 ML LIQUID 300 MG PO (09:30)
[2024-12-29] MEDS: HYDRO PO ×2 (11:30→20:44)
[2024-12-29] MEDS: ACET PO ×2 (11:30→20:44)
--- NOTE | 2024-12-29 12:44 | PC.NURSE ---
Resident scratched her right 3rd toe causing redness to the area. Monitor q shift.
[2024-12-30] VITALS (12 sets, daily range): BP systolic 93–110; BP diastolic 55–62; PULSE 55–88; RESP 14–19; TEMP 35.9–36.7; O2SAT 97–100
[2024-12-30] MEDS: MIDODRINE 10 MG TABLET PO ×3 (00:30→12:05)
[2024-12-30] MEDS: IPRATROPIUM/ALBUTEROL 3 ML AMPUL.NEB INH ×6 (02:10→22:00)
[2024-12-30] MEDS: BUDESONIDE 0.5 MG/2 ML AMPUL.NEB INH ×2 (07:05→18:15)
[2024-12-30] MEDS: guaiFENesin Liq 100 MG/5 ML LIQUID 300 MG PO ×3 (07:30→20:45)
[2024-12-30] MEDS: AMIODARONE 200 MG TABLET PO (07:57)
[2024-12-30] MEDS: DEX/HYPRO/GLY ARTIFICAL TEARS 225 DROP/15 ML BTL BOTH EYES ×2 (07:58→20:44)
[2024-12-30] MEDS: ASCORBIC ACID 500 MG TABLET PO ×2 (07:58→20:43)
[2024-12-30] MEDS: SENNOSIDES 8.6 MG TABLET PO ×2 (07:59→20:44)
[2024-12-30] MEDS: MULTIVITAMIN 1 TAB TABLET PO (07:59)
[2024-12-30] MEDS: VITAMIN B COMPLEX PO (07:59)
[2024-12-30] MEDS: FAMOTIDINE 20 MG TABLET PO ×2 (07:59→20:44)
[2024-12-30] MEDS: ALPRAZolam 0.5 MG TABLET PO ×2 (09:30→22:04)
[2024-12-30] MEDS: ACET PO (15:11)
[2024-12-30] MEDS: HYDRO PO (15:11)
[2024-12-30] MEDS: ACETAMINOPHEN 325 MG TABLET 650 MG PO (20:44)
[2024-12-31] VITALS (12 sets, daily range): BP systolic 101–121; BP diastolic 49–72; PULSE 56–88; RESP 14–22; TEMP 36.2–37.1; O2SAT 98–100
[2024-12-31] MEDS: MIDODRINE 10 MG TABLET PO ×4 (00:22→17:20)
[2024-12-31] MEDS: IPRATROPIUM/ALBUTEROL 3 ML AMPUL.NEB INH ×6 (03:06→22:10)
[2024-12-31] MEDS: BUDESONIDE 0.5 MG/2 ML AMPUL.NEB INH ×2 (06:15→18:48)
[2024-12-31] MEDS: ASCORBIC ACID 500 MG TABLET PO ×2 (09:19→21:29)
[2024-12-31] MEDS: SENNOSIDES 8.6 MG TABLET PO ×2 (09:21→21:29)
[2024-12-31] MEDS: FAMOTIDINE 20 MG TABLET PO ×2 (09:21→21:40)
[2024-12-31] MEDS: MULTIVITAMIN 1 TAB TABLET PO (09:21)
[2024-12-31] MEDS: VITAMIN B COMPLEX PO (09:21)
[2024-12-31] MEDS: DEX/HYPRO/GLY ARTIFICAL TEARS 225 DROP/15 ML BTL BOTH EYES ×2 (09:21→21:29)
[2024-12-31] MEDS: HYDRO PO ×2 (09:22→18:00)
[2024-12-31] MEDS: ACET PO ×2 (09:22→18:00)
--- NOTE | 2024-12-31 09:38 | PC.RT ---
At 0615 RT informed by TELEPHONE OPERATOR RECEPTIONIST sitting outside pt room that her machine is going off, RT reported to room immediately to find pt trach tube dislodged from stoma and pt in respiratory distress, diaphoretic. RT deflated cuff, inserted trach tube back into stoma site, reinflated cuff, and hyperoxygenated pt for 1 minute. RT monitored pt for approx 10 minutes while pt's respirations/WOB improved. O2 sats 98, HR 88, no signs of respiratory distress noted at time of RT departure.
--- NOTE | 2024-12-31 11:28 | PC.SS ---
During room visit resident stated she had an incident with her breathing, she states RT responded quickly. She said it made her afraid saying what if nobody heard her vent. Resident had some concerns to share about a staff member this SSD informed her that her concerns would be brought to the DON. This SSD offered resident assurance to her concerns and offered to move her to another private room closer to the nurses station. Resident said she appreciates the offer and wanted to have the weekend to think about the move as she is comfortable in her current room. This SSD will follow up with resident on Friday and will continue to offer support.
[2024-12-31] MEDS: guaiFENesin Liq 100 MG/5 ML LIQUID 300 MG PO ×2 (14:15→21:28)
[2024-12-31] MEDS: ALPRAZolam 0.5 MG TABLET PO (15:15)
--- NOTE | 2024-12-31 16:54 | PD.SAPROG ---
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 (2) Chronic respiratory failure with hypoxia and hypercapnia: Status: Chronic (3) Ventilator dependent: Status: Chronic (4) Congestive heart failure: Status: Chronic (5) Chronic obstructive pulmonary disease, unspecified: Status: Chronic (6) Atrial fibrillation: Status: Chronic (7) Tracheostomy in place: Status: Chronic (8) Chronic anemia: Status: Chronic SUBJECTIVE Fever:: none GI:: none Shortness of Breath:: unchanged GI:: nausea Pain:: none OBJECTIVE Most recent vital signs: Last Vital Signs Temp 98.7 F 12/31/24 12:00 Pulse 76 12/31/24 14:05 Resp 16 12/31/24 14:05 BP 121/72 12/31/24 12:00 Pulse Ox 99 12/31/24 14:05 O2 Del Method Mechanical Ventilation 12/31/24 06:00 FiO2 40 12/31/24 14:05 Neurological:: alert Speech:: nods head, mouths words and appropriate Answers questions:: yes Respiratory:: shallow breathing and rhonchi Cardiovascular: irregular Abdomen: soft Tracheostomy:: to ventilator Feeding per:: po ASSESSMENT & PLAN Assessment: stable. Tolerating ventilatory support. Not weanable because of generalized weakness. Tolerating feeding. Prognosis is very guarded. Patient aware. Tracheostomy revision done surgically. Psychotropics: Xanax 0.5 mgs bid has really done well to settle her anxiety. no side effects seen. She does not do well on lower titration of anxiety meds. No new issues. Had a bedside conversation on quality of life and end of life care at pt's request. Pt remains comfortable on current meds. 08-11-24 had a detailed conversation with pt's son about progressively worsening condition as expected in end stage COPD ventilator dependent and now more weak/inability to thrive. Code status was discussed and the extremely poor prognosis. 08-16-24 Pt's Hb was critical and hence ordered two units packed rbcs. Pt was in no distress. Post infusion levels are improved. No new complaints 09-23-24: She had an episode of being less responsive today but recovered quickly and blood gases checked stat which were normal ph 7.43, but PaO2 was low at 50mm Hg and saturations were good at 97%. Recently transferred to the ER for respiratory distress and dropping O2 saturations. Received back with diagnosis of Pneumonia and on antibiotics. stable and no fever. Regular tracheostomy change was difficult for the respiratroy tech and hence request to Gen. surgeon made and needful done, Now stable. No complaints. VSS . O2 saturations good on FiO2 of 45%. Pt maintaining good temperament and content. Pt decided against Tracheostomy revision which was scheduled by surgery and hence cancelled. Comfortable. Anxiety medicine not being used often hence decreased to q 12 hrly prn. tolerating it well. Pt's son visits her from time to time in person and kept updated. Tolerating her feeding well Plan: Current treatment as well as ventilator settings reviewed and continued.
[2024-12-31] MEDS: MAGNESIUM HYDROXIDE 30 ML ORAL SUSP ML PO (21:43)
[2025-01-01] VITALS (11 sets, daily range): BP systolic 96–145; BP diastolic 54–74; PULSE 57–90; RESP 15–24; TEMP 36.2–36.6; O2SAT 96–99
[2025-01-01] MEDS: MIDODRINE 10 MG TABLET PO ×3 (00:15→12:04)
[2025-01-01] MEDS: IPRATROPIUM/ALBUTEROL 3 ML AMPUL.NEB INH ×6 (02:24→21:55)
[2025-01-01] MEDS: BUDESONIDE 0.5 MG/2 ML AMPUL.NEB INH ×2 (06:16→18:39)
[2025-01-01] MEDS: guaiFENesin Liq 100 MG/5 ML LIQUID 300 MG PO ×2 (09:01→16:35)
[2025-01-01] MEDS: SENNOSIDES 8.6 MG TABLET PO ×2 (09:02→20:50)
[2025-01-01] MEDS: MULTIVITAMIN 1 TAB TABLET PO (09:02)
[2025-01-01] MEDS: ASCORBIC ACID 500 MG TABLET PO ×2 (09:02→20:49)
[2025-01-01] MEDS: FAMOTIDINE 20 MG TABLET PO ×2 (09:02→20:50)
[2025-01-01] MEDS: VITAMIN B COMPLEX PO (09:02)
[2025-01-01] MEDS: ALPRAZolam 0.5 MG TABLET PO ×2 (09:25→21:00)
[2025-01-01] MEDS: ACET PO ×2 (13:35→21:55)
[2025-01-01] MEDS: HYDRO PO ×2 (13:35→21:55)
[2025-01-01] MEDS: DEX/HYPRO/GLY ARTIFICAL TEARS 225 DROP/15 ML BTL BOTH EYES (20:50)
[2025-01-02] VITALS (13 sets, daily range): BP systolic 92–111; BP diastolic 55–68; PULSE 65–84; RESP 14–20; TEMP 36.2–36.6; O2SAT 94–100
[2025-01-02] MEDS: ONDANSETRON HCL 4 MG TABLET PO ×2 (00:37→19:40)
[2025-01-02] MEDS: IPRATROPIUM/ALBUTEROL 3 ML AMPUL.NEB INH ×6 (02:46→22:00)
[2025-01-02] MEDS: MIDODRINE 10 MG TABLET PO ×3 (05:15→17:29)
[2025-01-02] MEDS: ACETAMINOPHEN 325 MG TABLET 650 MG PO (05:55)
[2025-01-02] MEDS: BUDESONIDE 0.5 MG/2 ML AMPUL.NEB INH ×2 (06:17→18:10)
[2025-01-02] MEDS: ALPRAZolam 0.5 MG TABLET PO (09:20)
[2025-01-02] MEDS: AMIODARONE 200 MG TABLET PO (09:22)
[2025-01-02] MEDS: MULTIVITAMIN 1 TAB TABLET PO (09:23)
[2025-01-02] MEDS: VITAMIN B COMPLEX PO (09:23)
[2025-01-02] MEDS: SENNOSIDES 8.6 MG TABLET PO ×2 (09:23→21:08)
[2025-01-02] MEDS: FAMOTIDINE 20 MG TABLET PO ×2 (09:24→21:07)
[2025-01-02] MEDS: ASCORBIC ACID 500 MG TABLET PO ×2 (09:24→21:08)
[2025-01-02] MEDS: ACET PO (15:20)
[2025-01-02] MEDS: HYDRO PO (15:20)
[2025-01-02] MEDS: DEX/HYPRO/GLY ARTIFICAL TEARS 225 DROP/15 ML BTL BOTH EYES (21:08)
[2025-01-02] MEDS: guaiFENesin Liq 100 MG/5 ML LIQUID 300 MG PO (21:09)
[2025-01-03] VITALS (13 sets, daily range): BP systolic 94–124; BP diastolic 54–66; PULSE 57–82; RESP 14–18; TEMP 36.3–36.8; O2SAT 98–100; BMI 17.6
[2025-01-03] MEDS: ALPRAZolam 0.5 MG TABLET PO ×2 (00:48→16:45)
[2025-01-03] MEDS: IPRATROPIUM/ALBUTEROL 3 ML AMPUL.NEB INH ×6 (03:15→22:02)
[2025-01-03] MEDS: BUDESONIDE 0.5 MG/2 ML AMPUL.NEB INH (06:10)
[2025-01-03] MEDS: guaiFENesin Liq 100 MG/5 ML LIQUID 300 MG PO ×2 (08:30→18:30)
[2025-01-03] MEDS: ASCORBIC ACID 500 MG TABLET PO ×2 (08:59→20:28)
[2025-01-03] MEDS: DEX/HYPRO/GLY ARTIFICAL TEARS 225 DROP/15 ML BTL BOTH EYES ×2 (09:00→20:28)
[2025-01-03] MEDS: MULTIVITAMIN 1 TAB TABLET PO (09:00)
[2025-01-03] MEDS: VITAMIN B COMPLEX PO (09:00)
[2025-01-03] MEDS: FAMOTIDINE 20 MG TABLET PO ×2 (09:00→20:28)
[2025-01-03] MEDS: SENNOSIDES 8.6 MG TABLET PO ×2 (09:00→20:29)
[2025-01-03] MEDS: HYDRO PO ×2 (11:15→21:21)
[2025-01-03] MEDS: ACET PO ×2 (11:15→21:21)
[2025-01-03] MEDS: MIDODRINE 10 MG TABLET PO ×3 (11:45→17:08)
[2025-01-03] MEDS: ONDANSETRON HCL 4 MG TABLET PO (13:29)
--- NOTE | 2025-01-03 16:07 | PC.SS ---
This SSD followed up with resident regarding her possibly moving closer down the [place] to be closer to the nurses station. Resident said she is concerned room might be too hot in the warm months. This SSD assured resident there is a fan in the room and she could be able to close her curtains to be comfortable. Resident said she would think on it. This SSD will follow up with resident.
--- NOTE | 2025-01-03 19:14 | PC.NURSE ---
Resident is awake and alert, remains on Xanax, no behaviors today. Will continue to monitor.
[2025-01-04] VITALS (13 sets, daily range): BP systolic 94–138; BP diastolic 51–72; PULSE 66–89; RESP 14–18; TEMP 36.2–36.5; O2SAT 95–100
[2025-01-04] MEDS: IPRATROPIUM/ALBUTEROL 3 ML AMPUL.NEB INH ×6 (02:40→22:00)
[2025-01-04] MEDS: guaiFENesin Liq 100 MG/5 ML LIQUID 300 MG PO ×2 (04:45→11:00)
[2025-01-04] MEDS: ALPRAZolam 0.5 MG TABLET PO ×2 (04:45→16:45)
[2025-01-04] MEDS: MIDODRINE 10 MG TABLET PO ×3 (05:02→17:11)
[2025-01-04] MEDS: BUDESONIDE 0.5 MG/2 ML AMPUL.NEB INH ×2 (06:00→18:06)
[2025-01-04] MEDS: DEX/HYPRO/GLY ARTIFICAL TEARS 225 DROP/15 ML BTL BOTH EYES ×2 (09:04→20:56)
[2025-01-04] MEDS: ASCORBIC ACID 500 MG TABLET PO ×2 (09:04→20:56)
[2025-01-04] MEDS: SENNOSIDES 8.6 MG TABLET PO ×2 (09:05→20:56)
[2025-01-04] MEDS: FAMOTIDINE 20 MG TABLET PO ×2 (09:05→20:56)
[2025-01-04] MEDS: VITAMIN B COMPLEX PO (09:05)
[2025-01-04] MEDS: MULTIVITAMIN 1 TAB TABLET PO (09:05)
[2025-01-04] MEDS: AMIODARONE 200 MG TABLET PO (09:06)
[2025-01-04] MEDS: ACET PO (12:05)
[2025-01-04] MEDS: HYDRO PO (12:05)
--- NOTE | 2025-01-04 13:00 | PD.SAPROG ---
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 (2) Chronic respiratory failure with hypoxia and hypercapnia: Status: Chronic (3) Ventilator dependent: Status: Chronic (4) Congestive heart failure: Status: Chronic (5) Chronic obstructive pulmonary disease, unspecified: Status: Chronic (6) Atrial fibrillation: Status: Chronic (7) Tracheostomy in place: Status: Chronic (8) Chronic anemia: Status: Chronic SUBJECTIVE Fever:: none GI:: none Shortness of Breath:: unchanged GI:: nausea Pain:: none OBJECTIVE Most recent vital signs: Last Vital Signs Temp 97.4 F 01/07/25 05:31 Pulse 77 01/07/25 08:00 Resp 18 01/07/25 05:31 BP 152/65 H 01/07/25 08:00 Pulse Ox 99 01/07/25 05:31 O2 Del Method Mechanical Ventilation 01/06/25 17:50 FiO2 45 01/07/25 03:00 Neurological:: alert Speech:: nods head, mouths words and appropriate Answers questions:: yes Respiratory:: shallow breathing and rhonchi Cardiovascular: irregular Abdomen: soft Tracheostomy:: to ventilator Feeding per:: po ASSESSMENT & PLAN Assessment: stable. Tolerating ventilatory support. Not weanable because of generalized weakness. Tolerating feeding. Prognosis is very guarded. Patient aware. Tracheostomy revision done surgically. Psychotropics: Xanax 0.5 mgs bid has really done well to settle her anxiety. no side effects seen. She does not do well on lower titration of anxiety meds. No new issues. Had a bedside conversation on quality of life and end of life care at pt's request. Pt remains comfortable on current meds. 08-11-24 had a detailed conversation with pt's son about progressively worsening condition as expected in end stage COPD ventilator dependent and now more weak/inability to thrive. Code status was discussed and the extremely poor prognosis. 08-16-24 Pt's Hb was critical and hence ordered two units packed rbcs. Pt was in no distress. Post infusion levels are improved. No new complaints 09-23-24: She had an episode of being less responsive today but recovered quickly and blood gases checked stat which were normal ph 7.43, but PaO2 was low at 50mm Hg and saturations were good at 97%. Recently transferred to the ER for respiratory distress and dropping O2 saturations. Received back with diagnosis of Pneumonia and on antibiotics. stable and no fever. Regular tracheostomy change was difficult for the respiratroy tech and hence request to Gen. surgeon made and needful done, Now stable. No complaints. VSS . O2 saturations good on FiO2 of 45%. Pt maintaining good temperament and content. Pt decided against Tracheostomy revision which was scheduled by surgery and hence cancelled. Comfortable. Anxiety medicine not being used often hence decreased to q 12 hrly prn. tolerating it well. Pt's son visits her from time to time in person and kept updated. Tolerating her feeding well.mostly cheerful, VSS Plan: Current treatment as well as ventilator settings reviewed and continued.
[2025-01-04] MEDS: ACETAMINOPHEN 325 MG TABLET 650 MG PO (21:00)
[2025-01-05] VITALS (11 sets, daily range): BP systolic 83–98; BP diastolic 51–60; PULSE 66–86; RESP 14–19; TEMP 36.4–36.7; O2SAT 97–100
[2025-01-05] MEDS: MIDODRINE 10 MG TABLET PO ×4 (00:10→17:25)
[2025-01-05] MEDS: IPRATROPIUM/ALBUTEROL 3 ML AMPUL.NEB INH ×6 (02:00→22:00)
[2025-01-05] MEDS: ALPRAZolam 0.5 MG TABLET PO (05:01)
[2025-01-05] MEDS: BUDESONIDE 0.5 MG/2 ML AMPUL.NEB INH ×2 (06:00→18:05)
[2025-01-05] MEDS: guaiFENesin Liq 100 MG/5 ML LIQUID 300 MG PO ×3 (08:30→20:20)
[2025-01-05] MEDS: ASCORBIC ACID 500 MG TABLET PO ×2 (09:15→20:18)
[2025-01-05] MEDS: MULTIVITAMIN 1 TAB TABLET PO (09:16)
[2025-01-05] MEDS: FAMOTIDINE 20 MG TABLET PO ×2 (09:16→20:18)
[2025-01-05] MEDS: DEX/HYPRO/GLY ARTIFICAL TEARS 225 DROP/15 ML BTL BOTH EYES ×2 (09:16→20:18)
[2025-01-05] MEDS: VITAMIN B COMPLEX PO (09:17)
[2025-01-05] MEDS: SENNOSIDES 8.6 MG TABLET PO ×2 (09:17→20:18)
--- NOTE | 2025-01-05 11:19 | PC.SS ---
Room visit: Resident is laying in bed with head of the bed elevated with call light properly placed with no signs of distress. Resident has no changes in care or condition, remains on vent with trach in place and GT for medication and nutrition. She is alert and oriented, her health care proxy is her son Francisco Javier. Resident will remain in current care and will continue to have all subacute care needs met by staff.
[2025-01-05] MEDS: HYDRO PO (15:30)
[2025-01-05] MEDS: ACET PO (15:30)
--- NOTE | 2025-01-05 19:05 | PC.NURSE ---
Resident is awake and alert in no apparent distress. No complaints of discomfort. Remains on Xanax, no behaviors, will continue to monitor resident.
[2025-01-06] VITALS (12 sets, daily range): BP systolic 93–120; BP diastolic 53–64; PULSE 64–87; RESP 14–22; TEMP 36.5–36.8; O2SAT 97–99
[2025-01-06] MEDS: ALPRAZolam 0.5 MG TABLET PO ×2 (00:15→21:25)
[2025-01-06] MEDS: MIDODRINE 10 MG TABLET PO ×4 (00:25→17:17)
[2025-01-06] MEDS: IPRATROPIUM/ALBUTEROL 3 ML AMPUL.NEB INH ×5 (06:18→22:00)
[2025-01-06] MEDS: BUDESONIDE 0.5 MG/2 ML AMPUL.NEB INH ×2 (06:18→18:00)
[2025-01-06] MEDS: AMIODARONE 200 MG TABLET PO (09:50)
[2025-01-06] MEDS: ASCORBIC ACID 500 MG TABLET PO ×2 (09:52→21:26)
[2025-01-06] MEDS: FAMOTIDINE 20 MG TABLET PO ×2 (09:52→21:26)
[2025-01-06] MEDS: VITAMIN B COMPLEX PO (09:52)
[2025-01-06] MEDS: SENNOSIDES 8.6 MG TABLET PO ×2 (09:52→21:26)
[2025-01-06] MEDS: MULTIVITAMIN 1 TAB TABLET PO (09:52)
[2025-01-06] MEDS: guaiFENesin Liq 100 MG/5 ML LIQUID 300 MG PO (10:55)
[2025-01-06] MEDS: HYDRO PO (13:45)
[2025-01-06] MEDS: ACET PO (13:45)
[2025-01-06] MEDS: ACETAMINOPHEN 325 MG TABLET 650 MG PO (20:10)
[2025-01-06] MEDS: DEX/HYPRO/GLY ARTIFICAL TEARS 225 DROP/15 ML BTL BOTH EYES (21:26)
[2025-01-07] VITALS (13 sets, daily range): BP systolic 106–152; BP diastolic 56–72; PULSE 48–87; RESP 14–22; TEMP 36.3–36.8; O2SAT 97–99
[2025-01-07] MEDS: MIDODRINE 10 MG TABLET PO ×2 (00:33→05:28)
[2025-01-07] MEDS: guaiFENesin Liq 100 MG/5 ML LIQUID 300 MG PO ×4 (00:35→21:34)
[2025-01-07] MEDS: IPRATROPIUM/ALBUTEROL 3 ML AMPUL.NEB INH ×6 (02:00→23:00)
[2025-01-07] MEDS: BUDESONIDE 0.5 MG/2 ML AMPUL.NEB INH ×2 (06:55→18:55)
[2025-01-07] MEDS: AMIODARONE 200 MG TABLET PO (08:00)
[2025-01-07] MEDS: SENNOSIDES 8.6 MG TABLET PO (08:01)
[2025-01-07] MEDS: VITAMIN B COMPLEX PO (08:01)
[2025-01-07] MEDS: MULTIVITAMIN 1 TAB TABLET PO (08:01)
[2025-01-07] MEDS: ASCORBIC ACID 500 MG TABLET PO ×2 (08:01→21:26)
[2025-01-07] MEDS: FAMOTIDINE 20 MG TABLET PO ×2 (08:01→20:02)
[2025-01-07] MEDS: ALPRAZolam 0.5 MG TABLET PO (10:40)
[2025-01-07] MEDS: ACET PO (17:50)
[2025-01-07] MEDS: HYDRO PO (17:50)
[2025-01-07] MEDS: DEX/HYPRO/GLY ARTIFICAL TEARS 225 DROP/15 ML BTL BOTH EYES (20:02)
[2025-01-08] VITALS (11 sets, daily range): BP systolic 113–134; BP diastolic 60–77; PULSE 60–81; RESP 14–24; TEMP 36.2–36.6; O2SAT 96–100
[2025-01-08] MEDS: ALPRAZolam 0.5 MG TABLET PO ×2 (00:53→12:23)
[2025-01-08] MEDS: IPRATROPIUM/ALBUTEROL 3 ML AMPUL.NEB INH ×6 (02:56→22:00)
[2025-01-08] MEDS: guaiFENesin Liq 100 MG/5 ML LIQUID 300 MG PO ×4 (04:27→23:55)
[2025-01-08] MEDS: MIDODRINE 10 MG TABLET PO (05:34)
[2025-01-08] MEDS: BUDESONIDE 0.5 MG/2 ML AMPUL.NEB INH ×2 (07:10→17:55)
[2025-01-08] MEDS: MULTIVITAMIN 1 TAB TABLET PO (09:28)
[2025-01-08] MEDS: SENNOSIDES 8.6 MG TABLET PO (09:28)
[2025-01-08] MEDS: FAMOTIDINE 20 MG TABLET PO ×2 (09:28→20:04)
[2025-01-08] MEDS: ASCORBIC ACID 500 MG TABLET PO ×2 (09:28→20:03)
[2025-01-08] MEDS: AMIODARONE 200 MG TABLET PO (09:28)
[2025-01-08] MEDS: DEX/HYPRO/GLY ARTIFICAL TEARS 225 DROP/15 ML BTL BOTH EYES ×2 (09:28→20:03)
[2025-01-08] MEDS: VITAMIN B COMPLEX PO (09:28)
--- NOTE | 2025-01-08 16:26 | PC.NURSE ---
Resident c/o more coughing. Noted with hoarseness of voice. Face looks more puffy, afebrile. Called Dr paz and made aware with order received for resident to gargle warm water.
[2025-01-08] MEDS: HYDRO PO (17:26)
[2025-01-08] MEDS: ACET PO (17:26)
--- NOTE | 2025-01-08 20:51 | PD.SAPROG ---
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 (2) Chronic respiratory failure with hypoxia and hypercapnia: Status: Chronic (3) Ventilator dependent: Status: Chronic (4) Congestive heart failure: Status: Chronic (5) Chronic obstructive pulmonary disease, unspecified: Status: Chronic (6) Atrial fibrillation: Status: Chronic (7) Tracheostomy in place: Status: Chronic (8) Chronic anemia: Status: Chronic SUBJECTIVE Fever:: none GI:: none Shortness of Breath:: unchanged GI:: nausea Pain:: none OBJECTIVE Most recent vital signs: Last Vital Signs Temp 97.5 F 01/08/25 17:17 Pulse 73 01/08/25 17:17 Resp 14 01/08/25 17:17 BP 134/77 H 01/08/25 17:17 Pulse Ox 99 01/08/25 17:17 O2 Del Method Mechanical Ventilation 01/08/25 06:00 FiO2 45 01/08/25 14:05 Neurological:: alert Speech:: nods head, mouths words and appropriate Answers questions:: yes Respiratory:: shallow breathing and rhonchi Cardiovascular: irregular Abdomen: soft Tracheostomy:: to ventilator Feeding per:: po ASSESSMENT & PLAN Assessment: stable. Tolerating ventilatory support. Not weanable because of generalized weakness. Tolerating feeding. Prognosis is very guarded. Patient aware. Tracheostomy revision done surgically. Psychotropics: Xanax 0.5 mgs bid has really done well to settle her anxiety. no side effects seen. She does not do well on lower titration of anxiety meds. No new issues. Had a bedside conversation on quality of life and end of life care at pt's request. Pt remains comfortable on current meds. 08-11-24 had a detailed conversation with pt's son about progressively worsening condition as expected in end stage COPD ventilator dependent and now more weak/inability to thrive. Code status was discussed and the extremely poor prognosis. 08-16-24 Pt's Hb was critical and hence ordered two units packed rbcs. Pt was in no distress. Post infusion levels are improved. No new complaints 09-23-24: She had an episode of being less responsive today but recovered quickly and blood gases checked stat which were normal ph 7.43, but PaO2 was low at 50mm Hg and saturations were good at 97%. Recently transferred to the ER for respiratory distress and dropping O2 saturations. Received back with diagnosis of Pneumonia and on antibiotics. stable and no fever. Regular tracheostomy change was difficult for the respiratroy tech and hence request to Gen. surgeon made and needful done, Now stable. No complaints. VSS . O2 saturations good on FiO2 of 45%. Pt maintaining good temperament and content. Pt decided against Tracheostomy revision which was scheduled by surgery and hence cancelled. Comfortable. Anxiety medicine not being used often hence decreased to q 12 hrly prn. tolerating it well. Pt's son visits her from time to time in person and kept updated. Tolerating her feeding well.mostly cheerful, VSS Plan: Current treatment as well as ventilator settings reviewed and continued.
[2025-01-09] VITALS (11 sets, daily range): BP systolic 115–136; BP diastolic 59–79; PULSE 63–88; RESP 16–35; TEMP 36.2–36.6; O2SAT 96–100
[2025-01-09] MEDS: ALPRAZolam 0.5 MG TABLET PO ×2 (01:27→15:15)
[2025-01-09] MEDS: IPRATROPIUM/ALBUTEROL 3 ML AMPUL.NEB INH ×6 (02:00→22:05)
[2025-01-09] MEDS: MIDODRINE 10 MG TABLET PO ×2 (05:09→11:56)
[2025-01-09] MEDS: guaiFENesin Liq 100 MG/5 ML LIQUID 300 MG PO ×3 (06:01→20:20)
[2025-01-09] MEDS: BUDESONIDE 0.5 MG/2 ML AMPUL.NEB INH ×2 (06:45→18:09)
[2025-01-09] MEDS: ACETAMINOPHEN 325 MG TABLET 650 MG PO ×2 (07:00→20:25)
[2025-01-09] MEDS: ASCORBIC ACID 500 MG TABLET PO ×2 (08:37→20:54)
[2025-01-09] MEDS: AMIODARONE 200 MG TABLET PO (08:37)
[2025-01-09] MEDS: DEX/HYPRO/GLY ARTIFICAL TEARS 225 DROP/15 ML BTL BOTH EYES ×2 (08:38→20:54)
[2025-01-09] MEDS: MULTIVITAMIN 1 TAB TABLET PO (08:38)
[2025-01-09] MEDS: FAMOTIDINE 20 MG TABLET PO ×2 (08:38→20:54)
[2025-01-09] MEDS: VITAMIN B COMPLEX PO (08:39)
[2025-01-09] MEDS: SENNOSIDES 8.6 MG TABLET PO ×2 (08:39→20:55)
--- NOTE | 2025-01-09 19:04 | PC.NURSE ---
Resident is awake and alert with complaints of pain, continue to complain of coughing and increase secretions. Resident remains on Xanax for anxiety, no behaviors today, will continue to monitor.
[2025-01-10] VITALS (11 sets, daily range): BP systolic 111–156; BP diastolic 63–75; PULSE 55–87; RESP 14–22; TEMP 36.5–37; O2SAT 97–100
[2025-01-10] MEDS: MIDODRINE 10 MG TABLET PO ×2 (00:30→12:04)
[2025-01-10] MEDS: IPRATROPIUM/ALBUTEROL 3 ML AMPUL.NEB INH ×5 (02:10→22:15)
[2025-01-10] MEDS: ALPRAZolam 0.5 MG TABLET PO ×2 (03:30→17:15)
[2025-01-10] MEDS: BUDESONIDE 0.5 MG/2 ML AMPUL.NEB INH (07:10)
[2025-01-10] MEDS: AMIODARONE 200 MG TABLET PO (09:21)
[2025-01-10] MEDS: FAMOTIDINE 20 MG TABLET PO ×2 (09:22→21:15)
[2025-01-10] MEDS: MULTIVITAMIN 1 TAB TABLET PO (09:22)
[2025-01-10] MEDS: SENNOSIDES 8.6 MG TABLET PO ×2 (09:22→20:59)
[2025-01-10] MEDS: VITAMIN B COMPLEX PO (09:22)
[2025-01-10] MEDS: ASCORBIC ACID 500 MG TABLET PO ×2 (09:23→20:58)
[2025-01-10] MEDS: guaiFENesin Liq 100 MG/5 ML LIQUID 300 MG PO ×3 (09:23→23:00)
[2025-01-10] MEDS: DEX/HYPRO/GLY ARTIFICAL TEARS 225 DROP/15 ML BTL BOTH EYES (20:59)
[2025-01-10] MEDS: ACETAMINOPHEN 325 MG TABLET 650 MG PO (22:00)
[2025-01-11] VITALS (10 sets, daily range): BP systolic 102–124; BP diastolic 62–72; PULSE 66–94; RESP 14–18; TEMP 36.4–37.1; O2SAT 96–100
[2025-01-11] MEDS: MIDODRINE 10 MG TABLET PO ×2 (00:25→16:59)
[2025-01-11] MEDS: IPRATROPIUM/ALBUTEROL 3 ML AMPUL.NEB INH ×6 (02:00→22:05)
[2025-01-11] MEDS: BUDESONIDE 0.5 MG/2 ML AMPUL.NEB INH ×3 (02:58→18:11)
[2025-01-11] MEDS: ASCORBIC ACID 500 MG TABLET PO ×2 (09:10→20:37)
[2025-01-11] MEDS: AMIODARONE 200 MG TABLET PO (09:10)
[2025-01-11] MEDS: MULTIVITAMIN 1 TAB TABLET PO (09:11)
[2025-01-11] MEDS: SENNOSIDES 8.6 MG TABLET PO ×2 (09:11→20:38)
[2025-01-11] MEDS: FAMOTIDINE 20 MG TABLET PO ×2 (09:11→20:37)
[2025-01-11] MEDS: DEX/HYPRO/GLY ARTIFICAL TEARS 225 DROP/15 ML BTL BOTH EYES ×2 (09:11→20:37)
[2025-01-11] MEDS: VITAMIN B COMPLEX PO (09:12)
[2025-01-11] MEDS: guaiFENesin Liq 100 MG/5 ML LIQUID 300 MG PO ×3 (09:13→22:45)
[2025-01-11] MEDS: ACETAMINOPHEN 325 MG TABLET 650 MG PO ×2 (09:13→15:49)
[2025-01-11] MEDS: ALPRAZolam 0.5 MG TABLET PO (10:11)
--- NOTE | 2025-01-11 16:16 | XR_ITS ---
Examination: AP chest single view Technique: AP portable semiupright chest single view Exam date and time: January 11, 2025 1647 hrs. Comparison October 23, 2024 Indications: Shortness of breath chest pain congestion several days. Findings: Severe hyperexpansion Tracheostomy tube tip 9.2 cm above ayaan Cavitary change versus bullous change at the right apex again noted Prominent central pulmonary arteries Accentuation basilar bronchovascular markings Impression: Severe COPD Pulmonary artery hypertension Basilar bronchitis pattern
[2025-01-11] MEDS: ACET PO (21:15)
[2025-01-11] MEDS: HYDRO PO (21:15)
[2025-01-12] VITALS (11 sets, daily range): BP systolic 111–141; BP diastolic 63–78; PULSE 60–86; RESP 14–18; TEMP 35.9–37.1; O2SAT 98–100
[2025-01-12] MEDS: MIDODRINE 10 MG TABLET PO ×4 (00:17→17:17)
[2025-01-12] MEDS: IPRATROPIUM/ALBUTEROL 3 ML AMPUL.NEB INH ×6 (02:35→22:16)
[2025-01-12] MEDS: BUDESONIDE 0.5 MG/2 ML AMPUL.NEB INH ×2 (07:00→18:03)
[2025-01-12] MEDS: guaiFENesin Liq 100 MG/5 ML LIQUID 300 MG PO ×3 (07:49→23:20)
[2025-01-12] MEDS: VITAMIN B COMPLEX PO (08:00)
[2025-01-12] MEDS: SENNOSIDES 8.6 MG TABLET PO ×2 (08:00→21:21)
[2025-01-12] MEDS: ASCORBIC ACID 500 MG TABLET PO ×2 (08:00→21:20)
[2025-01-12] MEDS: MULTIVITAMIN 1 TAB TABLET PO (08:00)
[2025-01-12] MEDS: FAMOTIDINE 20 MG TABLET PO ×2 (08:00→21:21)
[2025-01-12] MEDS: AMIODARONE 200 MG TABLET PO (08:00)
[2025-01-12] MEDS: ALPRAZolam 0.5 MG TABLET PO ×2 (11:20→23:20)
--- NOTE | 2025-01-12 13:00 | PD.SAPROG ---
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 (2) Chronic respiratory failure with hypoxia and hypercapnia: Status: Chronic (3) Ventilator dependent: Status: Chronic (4) Congestive heart failure: Status: Chronic (5) Chronic obstructive pulmonary disease, unspecified: Status: Chronic (6) Atrial fibrillation: Status: Chronic (7) Tracheostomy in place: Status: Chronic (8) Chronic anemia: Status: Chronic SUBJECTIVE Fever:: none GI:: none Shortness of Breath:: unchanged GI:: nausea Pain:: none OBJECTIVE Most recent vital signs: Last Vital Signs Temp 97.5 F 01/15/25 06:00 Pulse 62 01/15/25 06:00 Resp 14 01/15/25 06:00 BP 136/69 H 01/15/25 06:00 Pulse Ox 100 01/15/25 06:00 O2 Del Method Mechanical Ventilation 01/15/25 06:00 FiO2 45 01/15/25 02:30 Neurological:: alert Speech:: nods head, mouths words and appropriate Answers questions:: yes Respiratory:: shallow breathing and rhonchi Cardiovascular: irregular Abdomen: soft Tracheostomy:: to ventilator Feeding per:: po ASSESSMENT & PLAN Assessment: stable. Tolerating ventilatory support. Not weanable because of generalized weakness. Tolerating feeding. Prognosis is very guarded. Patient aware. Tracheostomy revision done surgically. Psychotropics: Xanax 0.5 mgs bid has really done well to settle her anxiety. no side effects seen. She does not do well on lower titration of anxiety meds. No new issues. Had a bedside conversation on quality of life and end of life care at pt's request. Pt remains comfortable on current meds. 08-11-24 had a detailed conversation with pt's son about progressively worsening condition as expected in end stage COPD ventilator dependent and now more weak/inability to thrive. Code status was discussed and the extremely poor prognosis. 08-16-24 Pt's Hb was critical and hence ordered two units packed rbcs. Pt was in no distress. Post infusion levels are improved. No new complaints 09-23-24: She had an episode of being less responsive today but recovered quickly and blood gases checked stat which were normal ph 7.43, but PaO2 was low at 50mm Hg and saturations were good at 97%. Recently transferred to the ER for respiratory distress and dropping O2 saturations. Received back with diagnosis of Pneumonia and on antibiotics. stable and no fever. Regular tracheostomy change was difficult for the respiratroy tech and hence request to Gen. surgeon made and needful done, Now stable. No complaints. VSS . O2 saturations good on FiO2 of 45%. Pt maintaining good temperament and content. Pt decided against Tracheostomy revision which was scheduled by surgery and hence cancelled. Comfortable. Anxiety medicine not being used often hence decreased to q 12 hrly prn. tolerating it well. Pt's son visits her from time to time in person and kept updated. Tolerating her feeding well.mostly cheerful, VSS Plan: Current treatment as well as ventilator settings reviewed and continued.
[2025-01-12] MEDS: ACETAMINOPHEN 325 MG TABLET 650 MG PO (17:18)
[2025-01-12] MEDS: DEX/HYPRO/GLY ARTIFICAL TEARS 225 DROP/15 ML BTL BOTH EYES (21:21)
[2025-01-13] VITALS (11 sets, daily range): BP systolic 106–122; BP diastolic 60–67; PULSE 61–85; RESP 14–20; TEMP 36.4–36.8; O2SAT 98–100
[2025-01-13] MEDS: IPRATROPIUM/ALBUTEROL 3 ML AMPUL.NEB INH ×6 (01:55→22:14)
[2025-01-13] MEDS: ACETAMINOPHEN 325 MG TABLET 650 MG PO (04:34)
[2025-01-13] MEDS: MIDODRINE 10 MG TABLET PO ×2 (05:17→11:11)
[2025-01-13] MEDS: BUDESONIDE 0.5 MG/2 ML AMPUL.NEB INH ×2 (06:45→18:22)
[2025-01-13] MEDS: AMIODARONE 200 MG TABLET PO (08:45)
[2025-01-13] MEDS: SENNOSIDES 8.6 MG TABLET PO ×2 (08:46→21:20)
[2025-01-13] MEDS: MULTIVITAMIN 1 TAB TABLET PO (08:46)
[2025-01-13] MEDS: DEX/HYPRO/GLY ARTIFICAL TEARS 225 DROP/15 ML BTL BOTH EYES ×2 (08:46→21:20)
[2025-01-13] MEDS: ASCORBIC ACID 500 MG TABLET PO ×2 (08:46→21:19)
[2025-01-13] MEDS: FAMOTIDINE 20 MG TABLET PO ×2 (08:46→21:20)
[2025-01-13] MEDS: guaiFENesin Liq 100 MG/5 ML LIQUID 300 MG PO ×2 (08:47→17:56)
[2025-01-13] MEDS: VITAMIN B COMPLEX PO (08:47)
[2025-01-13] MEDS: ALPRAZolam 0.5 MG TABLET PO ×2 (11:11→23:16)
[2025-01-14] VITALS (13 sets, daily range): BP systolic 118–142; BP diastolic 60–74; PULSE 57–81; RESP 14–25; TEMP 36.1–36.9; O2SAT 97–100
[2025-01-14] MEDS: ACETAMINOPHEN 325 MG TABLET 650 MG PO ×4 (00:09→21:05)
[2025-01-14] MEDS: guaiFENesin Liq 100 MG/5 ML LIQUID 300 MG PO ×4 (00:11→23:15)
[2025-01-14] MEDS: IPRATROPIUM/ALBUTEROL 3 ML AMPUL.NEB INH ×6 (02:33→22:07)
[2025-01-14] MEDS: MIDODRINE 10 MG TABLET PO ×2 (05:03→17:32)
[2025-01-14] MEDS: BUDESONIDE 0.5 MG/2 ML AMPUL.NEB INH ×2 (07:03→18:07)
[2025-01-14] MEDS: DEX/HYPRO/GLY ARTIFICAL TEARS 225 DROP/15 ML BTL BOTH EYES ×2 (08:50→20:52)
[2025-01-14] MEDS: AMIODARONE 200 MG TABLET PO (08:50)
[2025-01-14] MEDS: ASCORBIC ACID 500 MG TABLET PO ×2 (08:50→20:52)
[2025-01-14] MEDS: MULTIVITAMIN 1 TAB TABLET PO (08:51)
[2025-01-14] MEDS: VITAMIN B COMPLEX PO (08:51)
[2025-01-14] MEDS: SENNOSIDES 8.6 MG TABLET PO ×2 (08:51→20:52)
[2025-01-14] MEDS: FAMOTIDINE 20 MG TABLET PO ×2 (08:51→20:52)
[2025-01-14] MEDS: ALPRAZolam 0.5 MG TABLET PO ×2 (10:45→23:10)
--- NOTE | 2025-01-14 12:19 | PC.SS ---
resident is seen in activities room via bed seen happy engaging and smiling. Resident is in good spirits enjoying activities. Resident is alert and oriented able to make needs known, her son Rafael is her healthcare proxy. Resident will remain in current care as she has no changes in care or condition, remains on vent with trach in place. She will continue to have all subacute care needs met by staff. This SSD will continue to make daily contact with resident and will offer support as needed and monitor for changes in care and condition.
--- NOTE | 2025-01-14 13:24 | PC.SS ---
resident remains stable and continues medication regimen, resident enjoys room visits and enjoys engaging in conversation. Resident will continue with current MD orders and will continue to have support visits from SSD and family.
[2025-01-15] VITALS (13 sets, daily range): BP systolic 98–141; BP diastolic 56–69; PULSE 62–91; RESP 14–28; TEMP 36.3–36.8; O2SAT 95–100
[2025-01-15] MEDS: IPRATROPIUM/ALBUTEROL 3 ML AMPUL.NEB INH ×6 (02:30→22:09)
[2025-01-15] MEDS: BUDESONIDE 0.5 MG/2 ML AMPUL.NEB INH ×2 (06:25→18:10)
[2025-01-15] MEDS: AMIODARONE 200 MG TABLET PO (09:26)
[2025-01-15] MEDS: SENNOSIDES 8.6 MG TABLET PO ×2 (09:27→20:38)
[2025-01-15] MEDS: VITAMIN B COMPLEX PO (09:27)
[2025-01-15] MEDS: DEX/HYPRO/GLY ARTIFICAL TEARS 225 DROP/15 ML BTL BOTH EYES ×2 (09:27→20:38)
[2025-01-15] MEDS: MULTIVITAMIN 1 TAB TABLET PO (09:27)
[2025-01-15] MEDS: ASCORBIC ACID 500 MG TABLET PO ×2 (09:27→20:37)
[2025-01-15] MEDS: FAMOTIDINE 20 MG TABLET PO ×2 (09:27→20:38)
[2025-01-15] MEDS: guaiFENesin Liq 100 MG/5 ML LIQUID 300 MG PO ×2 (11:08→19:31)
[2025-01-15] MEDS: MIDODRINE 10 MG TABLET PO (12:06)
[2025-01-15] MEDS: ACETAMINOPHEN 325 MG TABLET 650 MG PO (13:14)
--- NOTE | 2025-01-15 19:05 | PC.NURSE ---
resident has excessive use of call light this shift. More than usual requesting random objects such as back scratchers, greeting cards, clearing her bedside table, removing meal tray. All her needs were met by nurse and COFFEE TASTER. At 1800 RT here to administer her scheduled respiratory TX, within 30 minutes she was requesting to speak to RT. When this nurse entered her room and asked what she needed she stated I need RT Im very SOB and I need to speak with him. Resident was reminded she had just been suctioned, her O2 saturations are 100% and she just received her nebulizer TX. She was made aware RT left and went to other departments to administer TX's to other resident. RT was called & informed Mrs. Blakely requesting to speak to him. He returned to department and attended to her needs. Charge nurse aware and call light within reach.
[2025-01-15] MEDS: ACET PO (19:10)
[2025-01-15] MEDS: HYDRO PO (19:10)
--- NOTE | 2025-01-15 19:32 | PC.RT ---
called to bedside by BRICKLAYER'S ASSISTANT in regards to the pt feeling SOB and requesting a RT. upon entering the room the pt seemed to be in no distress with a spo2 of 100%. added 2ML of air to the patients cuff.
[2025-01-15] MEDS: ALPRAZolam 0.5 MG TABLET PO (23:30)
[2025-01-16] VITALS (11 sets, daily range): BP systolic 102–123; BP diastolic 59–74; PULSE 63–82; RESP 14–30; TEMP 36.1–36.5; O2SAT 97–100
[2025-01-16] MEDS: MIDODRINE 10 MG TABLET PO ×3 (00:19→12:30)
[2025-01-16] MEDS: IPRATROPIUM/ALBUTEROL 3 ML AMPUL.NEB INH ×6 (02:06→22:27)
[2025-01-16] MEDS: BUDESONIDE 0.5 MG/2 ML AMPUL.NEB INH ×2 (06:24→18:11)
[2025-01-16] MEDS: AMIODARONE 200 MG TABLET PO (09:22)
[2025-01-16] MEDS: ASCORBIC ACID 500 MG TABLET PO ×2 (09:25→21:00)
[2025-01-16] MEDS: SENNOSIDES 8.6 MG TABLET PO ×2 (09:26→21:03)
[2025-01-16] MEDS: FAMOTIDINE 20 MG TABLET PO ×2 (09:26→21:03)
[2025-01-16] MEDS: VITAMIN B COMPLEX PO (09:26)
[2025-01-16] MEDS: MULTIVITAMIN 1 TAB TABLET PO (09:26)
[2025-01-16] MEDS: DEX/HYPRO/GLY ARTIFICAL TEARS 225 DROP/15 ML BTL BOTH EYES ×2 (09:26→21:03)
[2025-01-16] MEDS: guaiFENesin Liq 100 MG/5 ML LIQUID 300 MG PO ×2 (09:30→18:00)
--- NOTE | 2025-01-16 10:52 | PD.SAPROG ---
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 (2) Chronic respiratory failure with hypoxia and hypercapnia: Status: Chronic (3) Ventilator dependent: Status: Chronic (4) Congestive heart failure: Status: Chronic (5) Chronic obstructive pulmonary disease, unspecified: Status: Chronic (6) Atrial fibrillation: Status: Chronic (7) Tracheostomy in place: Status: Chronic (8) Chronic anemia: Status: Chronic SUBJECTIVE Fever:: none GI:: none Shortness of Breath:: unchanged GI:: nausea Pain:: none OBJECTIVE Most recent vital signs: Last Vital Signs Temp 97.0 F 01/16/25 05:54 Pulse 80 01/16/25 10:18 Resp 30 H 01/16/25 10:18 BP 104/61 01/16/25 09:22 Pulse Ox 98 01/16/25 10:18 O2 Del Method Mechanical Ventilation 01/16/25 05:54 FiO2 45 01/16/25 10:18 Neurological:: alert Speech:: nods head, mouths words and appropriate Answers questions:: yes Respiratory:: shallow breathing and rhonchi Cardiovascular: irregular Abdomen: soft Tracheostomy:: to ventilator Feeding per:: po ASSESSMENT & PLAN Assessment: stable. Tolerating ventilatory support. Not weanable because of generalized weakness. Tolerating feeding. Prognosis is very guarded. Patient aware. Tracheostomy revision done surgically. Psychotropics: Xanax 0.5 mgs bid has really done well to settle her anxiety. no side effects seen. She does not do well on lower titration of anxiety meds. No new issues. Had a bedside conversation on quality of life and end of life care at pt's request. Pt remains comfortable on current meds. 08-11-24 had a detailed conversation with pt's son about progressively worsening condition as expected in end stage COPD ventilator dependent and now more weak/inability to thrive. Code status was discussed and the extremely poor prognosis. 08-16-24 Pt's Hb was critical and hence ordered two units packed rbcs. Pt was in no distress. Post infusion levels are improved. No new complaints 09-23-24: She had an episode of being less responsive today but recovered quickly and blood gases checked stat which were normal ph 7.43, but PaO2 was low at 50mm Hg and saturations were good at 97%. Recently transferred to the ER for respiratory distress and dropping O2 saturations. Received back with diagnosis of Pneumonia and on antibiotics. stable and no fever. Regular tracheostomy change was difficult for the respiratroy tech and hence request to Gen. surgeon made and needful done, Now stable. No complaints. VSS . O2 saturations good on FiO2 of 45%. Pt maintaining good temperament and content. Pt decided against Tracheostomy revision which was scheduled by surgery and hence cancelled. Comfortable. Anxiety medicine not being used often hence decreased to q 12 hrly prn. tolerating it well. Pt's son visits her from time to time in person and kept updated. Tolerating her feeding well.mostly cheerful, VSS Plan: Current treatment as well as ventilator settings reviewed and continued.
[2025-01-16] MEDS: ALPRAZolam 0.5 MG TABLET PO (12:30)
[2025-01-16] MEDS: ACETAMINOPHEN 325 MG TABLET 650 MG PO (18:00)
[2025-01-17] VITALS (13 sets, daily range): BP systolic 100–134; BP diastolic 58–73; PULSE 65–89; RESP 14–25; TEMP 36.1–36.7; O2SAT 97–100
[2025-01-17] MEDS: MIDODRINE 10 MG TABLET PO ×2 (00:18→17:43)
[2025-01-17] MEDS: guaiFENesin Liq 100 MG/5 ML LIQUID 300 MG PO ×3 (00:28→17:31)
[2025-01-17] MEDS: ALPRAZolam 0.5 MG TABLET PO ×2 (00:29→12:13)
[2025-01-17] MEDS: ACETAMINOPHEN 325 MG TABLET 650 MG PO ×3 (01:00→17:30)
[2025-01-17] MEDS: IPRATROPIUM/ALBUTEROL 3 ML AMPUL.NEB INH ×6 (02:08→22:37)
[2025-01-17] MEDS: BUDESONIDE 0.5 MG/2 ML AMPUL.NEB INH ×2 (06:10→18:32)
[2025-01-17] MEDS: AMIODARONE 200 MG TABLET PO (07:59)
[2025-01-17] MEDS: ASCORBIC ACID 500 MG TABLET PO ×2 (08:00→20:19)
[2025-01-17] MEDS: SENNOSIDES 8.6 MG TABLET PO ×2 (08:01→20:19)
[2025-01-17] MEDS: FAMOTIDINE 20 MG TABLET PO ×2 (08:01→20:19)
[2025-01-17] MEDS: MULTIVITAMIN 1 TAB TABLET PO (08:01)
[2025-01-17] MEDS: DEX/HYPRO/GLY ARTIFICAL TEARS 225 DROP/15 ML BTL BOTH EYES ×2 (08:01→20:19)
[2025-01-17] MEDS: VITAMIN B COMPLEX PO (09:30)
[2025-01-17] MEDS: HYDRO PO (21:16)
[2025-01-17] MEDS: ACET PO (21:16)
[2025-01-18] VITALS (11 sets, daily range): BP systolic 106–118; BP diastolic 59–66; PULSE 55–76; RESP 14–20; TEMP 36–36.4; O2SAT 96–100
[2025-01-18] MEDS: ALPRAZolam 0.5 MG TABLET PO ×2 (01:02→13:00)
[2025-01-18] MEDS: IPRATROPIUM/ALBUTEROL 3 ML AMPUL.NEB INH ×6 (02:08→22:49)
[2025-01-18] MEDS: MIDODRINE 10 MG TABLET PO ×3 (05:42→17:11)
[2025-01-18] MEDS: ACETAMINOPHEN 325 MG TABLET 650 MG PO ×2 (06:15→17:12)
[2025-01-18] MEDS: guaiFENesin Liq 100 MG/5 ML LIQUID 300 MG PO ×2 (06:15→12:00)
[2025-01-18] MEDS: BUDESONIDE 0.5 MG/2 ML AMPUL.NEB INH ×2 (06:44→18:12)
[2025-01-18] MEDS: FAMOTIDINE 20 MG TABLET PO ×2 (09:23→20:51)
[2025-01-18] MEDS: ASCORBIC ACID 500 MG TABLET PO ×2 (09:23→20:49)
[2025-01-18] MEDS: DEX/HYPRO/GLY ARTIFICAL TEARS 225 DROP/15 ML BTL BOTH EYES ×2 (09:23→21:05)
[2025-01-18] MEDS: VITAMIN B COMPLEX PO (09:24)
[2025-01-18] MEDS: SENNOSIDES 8.6 MG TABLET PO ×2 (09:24→20:51)
[2025-01-18] MEDS: MULTIVITAMIN 1 TAB TABLET PO (09:24)
[2025-01-19] VITALS (14 sets, daily range): BP systolic 100–122; BP diastolic 57–67; PULSE 64–103; RESP 14–25; TEMP 36.6–36.9; O2SAT 97–100
[2025-01-19] MEDS: ACETAMINOPHEN 325 MG TABLET 650 MG PO ×2 (02:14→08:27)
[2025-01-19] MEDS: IPRATROPIUM/ALBUTEROL 3 ML AMPUL.NEB INH ×7 (02:19→22:16)
[2025-01-19] MEDS: BUDESONIDE 0.5 MG/2 ML AMPUL.NEB INH ×2 (07:03→18:07)
[2025-01-19] MEDS: AMIODARONE 200 MG TABLET PO (08:07)
[2025-01-19] MEDS: ASCORBIC ACID 500 MG TABLET PO ×2 (08:07→21:21)
[2025-01-19] MEDS: FAMOTIDINE 20 MG TABLET PO ×2 (08:08→21:22)
[2025-01-19] MEDS: DEX/HYPRO/GLY ARTIFICAL TEARS 225 DROP/15 ML BTL BOTH EYES ×2 (08:08→21:21)
[2025-01-19] MEDS: MULTIVITAMIN 1 TAB TABLET PO (08:08)
[2025-01-19] MEDS: SENNOSIDES 8.6 MG TABLET PO ×2 (08:10→21:22)
[2025-01-19] MEDS: VITAMIN B COMPLEX PO (08:10)
[2025-01-19] MEDS: HYDRO PO ×2 (09:44→21:26)
[2025-01-19] MEDS: ACET PO ×2 (09:44→21:26)
[2025-01-19] MEDS: MIDODRINE 10 MG TABLET PO ×3 (12:11→17:10)
[2025-01-19] MEDS: ALPRAZolam 0.5 MG TABLET PO (15:06)
[2025-01-19] MEDS: ONDANSETRON HCL 4 MG TABLET PO (17:48)
[2025-01-20] VITALS (12 sets, daily range): BP systolic 103–129; BP diastolic 60–69; PULSE 66–96; RESP 14–25; TEMP 36.3–36.9; O2SAT 97–100
[2025-01-20] MEDS: guaiFENesin Liq 100 MG/5 ML LIQUID 300 MG PO ×2 (00:11→23:50)
[2025-01-20] MEDS: MIDODRINE 10 MG TABLET PO ×2 (00:13→05:02)
[2025-01-20] MEDS: IPRATROPIUM/ALBUTEROL 3 ML AMPUL.NEB INH ×6 (02:21→22:22)
[2025-01-20] MEDS: BUDESONIDE 0.5 MG/2 ML AMPUL.NEB INH ×2 (06:23→18:24)
[2025-01-20] MEDS: AMIODARONE 200 MG TABLET PO (09:27)
[2025-01-20] MEDS: SENNOSIDES 8.6 MG TABLET PO ×2 (09:28→21:45)
[2025-01-20] MEDS: DEX/HYPRO/GLY ARTIFICAL TEARS 225 DROP/15 ML BTL BOTH EYES ×2 (09:28→21:45)
[2025-01-20] MEDS: FAMOTIDINE 20 MG TABLET PO ×2 (09:28→21:45)
[2025-01-20] MEDS: MULTIVITAMIN 1 TAB TABLET PO (09:28)
[2025-01-20] MEDS: VITAMIN B COMPLEX PO (09:28)
[2025-01-20] MEDS: ASCORBIC ACID 500 MG TABLET PO ×2 (09:28→21:45)
[2025-01-20] MEDS: ONDANSETRON HCL 4 MG TABLET PO (10:55)
--- NOTE | 2025-01-20 16:00 | PD.SAPROG ---
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 (2) Chronic respiratory failure with hypoxia and hypercapnia: Status: Chronic (3) Ventilator dependent: Status: Chronic (4) Congestive heart failure: Status: Chronic (5) Chronic obstructive pulmonary disease, unspecified: Status: Chronic (6) Atrial fibrillation: Status: Chronic (7) Tracheostomy in place: Status: Chronic (8) Chronic anemia: Status: Chronic SUBJECTIVE Fever:: none GI:: none Shortness of Breath:: unchanged GI:: nausea Pain:: none OBJECTIVE Most recent vital signs: Last Vital Signs Temp 98.5 F 01/20/25 12:00 Pulse 71 01/20/25 14:10 Resp 22 H 01/20/25 14:10 BP 129/69 01/20/25 12:00 Pulse Ox 98 01/20/25 14:10 O2 Del Method Mechanical Ventilation 01/20/25 05:24 FiO2 45 01/20/25 14:10 Neurological:: alert Speech:: nods head, mouths words and appropriate Answers questions:: yes Respiratory:: shallow breathing and rhonchi Cardiovascular: irregular Abdomen: soft Tracheostomy:: to ventilator Feeding per:: po ASSESSMENT & PLAN Assessment: stable. Tolerating ventilatory support. Not weanable because of generalized weakness. Tolerating feeding. Prognosis is very guarded. Patient aware. Tracheostomy revision done surgically. Psychotropics: Xanax 0.5 mgs bid has really done well to settle her anxiety. no side effects seen. She does not do well on lower titration of anxiety meds. No new issues. Had a bedside conversation on quality of life and end of life care at pt's request. Pt remains comfortable on current meds. 08-11-24 had a detailed conversation with pt's son about progressively worsening condition as expected in end stage COPD ventilator dependent and now more weak/inability to thrive. Code status was discussed and the extremely poor prognosis. 08-16-24 Pt's Hb was critical and hence ordered two units packed rbcs. Pt was in no distress. Post infusion levels are improved. No new complaints 09-23-24: She had an episode of being less responsive today but recovered quickly and blood gases checked stat which were normal ph 7.43, but PaO2 was low at 50mm Hg and saturations were good at 97%. Recently transferred to the ER for respiratory distress and dropping O2 saturations. Received back with diagnosis of Pneumonia and on antibiotics. stable and no fever. Regular tracheostomy change was difficult for the respiratroy tech and hence request to Gen. surgeon made and needful done, Now stable. No complaints. VSS . O2 saturations good on FiO2 of 45%. Pt maintaining good temperament and content. Pt decided against Tracheostomy revision which was scheduled by surgery and hence cancelled. Comfortable. Anxiety medicine not being used often hence decreased to q 12 hrly prn. tolerating it well. Pt's son visits her from time to time in person and kept updated. Tolerating her feeding well.mostly cheerful, VSS. Occasional need for extra prn nebulized treatments. Plan: Current treatment as well as ventilator settings reviewed and continued.
[2025-01-20] MEDS: ALPRAZolam 0.5 MG TABLET PO (20:49)
[2025-01-20] MEDS: HYDRO PO (21:21)
[2025-01-20] MEDS: ACET PO (21:21)
[2025-01-21] VITALS (11 sets, daily range): BP systolic 91–141; BP diastolic 56–77; PULSE 69–99; RESP 14–23; TEMP 36.8–37; O2SAT 97–100
[2025-01-21] MEDS: MIDODRINE 10 MG TABLET PO ×3 (00:29→17:24)
[2025-01-21] MEDS: IPRATROPIUM/ALBUTEROL 3 ML AMPUL.NEB INH ×6 (02:04→22:00)
[2025-01-21] MEDS: BUDESONIDE 0.5 MG/2 ML AMPUL.NEB INH ×2 (06:29→18:21)
[2025-01-21] MEDS: ACETAMINOPHEN 325 MG TABLET 650 MG PO (09:30)
[2025-01-21] MEDS: VITAMIN B COMPLEX PO (09:31)
[2025-01-21] MEDS: SENNOSIDES 8.6 MG TABLET PO ×2 (09:32→20:56)
[2025-01-21] MEDS: MULTIVITAMIN 1 TAB TABLET PO (09:32)
[2025-01-21] MEDS: FAMOTIDINE 20 MG TABLET PO ×2 (09:32→20:56)
[2025-01-21] MEDS: ASCORBIC ACID 500 MG TABLET PO ×2 (09:32→20:56)
[2025-01-21] MEDS: AMIODARONE 200 MG TABLET PO (09:33)
[2025-01-21] MEDS: ALPRAZolam 0.5 MG TABLET PO (11:50)
[2025-01-21] MEDS: ONDANSETRON HCL 4 MG TABLET PO ×2 (11:50→21:29)
--- NOTE | 2025-01-21 12:45 | PC.SS ---
Room visit: Resident is laying in bed with head of the bed elevated with call light properly placed with no signs of distress. Resident is alert and oriented able to make needs known. She is able to make all medical decisions for self, her health care proxy is her son. Resident has no changes in care or condition, she will remain in current care and will continue to have all subacute care needs met by staff as she remains on vent with trach in place and GT for medication and nutrition. She is not showing any changes in mood and behavior, this SSD will continue to make daily contact with resident to offer support as she may need.
--- NOTE | 2025-01-21 15:25 | PC.SS ---
Resident louie and behavior is adequate, she prefers to stay in room and not participate in out of room activities. Resident continues to accept room visits and enjoys engaging in conversation. Resident will continue medication regimen per MD orders. This SSD will continue to make daily contact and monitor for changes in mood and behavior.
[2025-01-21] MEDS: ACET PO (18:10)
[2025-01-21] MEDS: HYDRO PO (18:10)
[2025-01-21] MEDS: guaiFENesin Liq 100 MG/5 ML LIQUID 300 MG PO (20:00)
[2025-01-21] MEDS: DEX/HYPRO/GLY ARTIFICAL TEARS 225 DROP/15 ML BTL BOTH EYES (20:56)
[2025-01-22] VITALS (13 sets, daily range): BP systolic 91–103; BP diastolic 53–64; PULSE 62–84; RESP 15–19; TEMP 36.2–36.7; O2SAT 97–100
[2025-01-22] MEDS: ALPRAZolam 0.5 MG TABLET PO ×2 (00:05→13:45)
[2025-01-22] MEDS: MIDODRINE 10 MG TABLET PO ×5 (00:27→23:56)
[2025-01-22] MEDS: IPRATROPIUM/ALBUTEROL 3 ML AMPUL.NEB INH ×6 (02:00→22:29)
[2025-01-22] MEDS: BUDESONIDE 0.5 MG/2 ML AMPUL.NEB INH ×2 (06:53→17:40)
[2025-01-22] MEDS: MULTIVITAMIN 1 TAB TABLET PO (09:06)
[2025-01-22] MEDS: VITAMIN B COMPLEX PO (09:06)
[2025-01-22] MEDS: FAMOTIDINE 20 MG TABLET PO ×2 (09:06→20:11)
[2025-01-22] MEDS: ASCORBIC ACID 500 MG TABLET PO ×2 (09:06→20:11)
[2025-01-22] MEDS: SENNOSIDES 8.6 MG TABLET PO ×2 (09:06→20:11)
[2025-01-22] MEDS: ACET PO (17:30)
[2025-01-22] MEDS: HYDRO PO (17:30)
[2025-01-22] MEDS: DEX/HYPRO/GLY ARTIFICAL TEARS 225 DROP/15 ML BTL BOTH EYES (20:11)
[2025-01-22] MEDS: guaiFENesin Liq 100 MG/5 ML LIQUID 300 MG PO (20:11)
[2025-01-23] VITALS (13 sets, daily range): BP systolic 98–141; BP diastolic 52–67; PULSE 56–86; RESP 14–21; TEMP 35.9–36.7; O2SAT 97–100
[2025-01-23] MEDS: guaiFENesin Liq 100 MG/5 ML LIQUID 300 MG PO ×2 (02:22→22:00)
[2025-01-23] MEDS: IPRATROPIUM/ALBUTEROL 3 ML AMPUL.NEB INH ×6 (03:02→22:11)
[2025-01-23] MEDS: MIDODRINE 10 MG TABLET PO ×2 (05:28→17:30)
[2025-01-23] MEDS: BUDESONIDE 0.5 MG/2 ML AMPUL.NEB INH ×2 (06:36→18:12)
[2025-01-23] MEDS: AMIODARONE 200 MG TABLET PO (08:47)
[2025-01-23] MEDS: FAMOTIDINE 20 MG TABLET PO ×2 (08:49→20:34)
[2025-01-23] MEDS: DEX/HYPRO/GLY ARTIFICAL TEARS 225 DROP/15 ML BTL BOTH EYES ×2 (08:49→20:34)
[2025-01-23] MEDS: SENNOSIDES 8.6 MG TABLET PO ×2 (08:49→20:34)
[2025-01-23] MEDS: ASCORBIC ACID 500 MG TABLET PO ×2 (08:49→20:33)
[2025-01-23] MEDS: VITAMIN B COMPLEX PO (08:49)
[2025-01-23] MEDS: MULTIVITAMIN 1 TAB TABLET PO (08:49)
--- NOTE | 2025-01-23 19:01 | PC.NURSE ---
Resident is awake and alert with no complaints of feeling anxious or depressed at this time. Vital signs are stable. Resident remains on Xanax. Will continue to monitor.
[2025-01-23] MEDS: HYDRO PO (21:00)
[2025-01-23] MEDS: ACET PO (21:00)
[2025-01-24] VITALS (11 sets, daily range): BP systolic 110–140; BP diastolic 61–79; PULSE 66–92; RESP 14–20; TEMP 36.3–36.7; O2SAT 95–100
[2025-01-24] MEDS: MIDODRINE 10 MG TABLET PO ×3 (00:18→23:14)
[2025-01-24] MEDS: IPRATROPIUM/ALBUTEROL 3 ML AMPUL.NEB INH ×6 (02:05→22:02)
[2025-01-24] MEDS: BUDESONIDE 0.5 MG/2 ML AMPUL.NEB INH ×2 (06:15→18:09)
[2025-01-24] MEDS: AMIODARONE 200 MG TABLET PO (09:03)
[2025-01-24] MEDS: DEX/HYPRO/GLY ARTIFICAL TEARS 225 DROP/15 ML BTL BOTH EYES ×2 (09:04→21:22)
[2025-01-24] MEDS: SENNOSIDES 8.6 MG TABLET PO ×2 (09:04→21:22)
[2025-01-24] MEDS: VITAMIN B COMPLEX PO (09:04)
[2025-01-24] MEDS: FAMOTIDINE 20 MG TABLET PO ×2 (09:04→21:22)
[2025-01-24] MEDS: MULTIVITAMIN 1 TAB TABLET PO (09:04)
[2025-01-24] MEDS: ASCORBIC ACID 500 MG TABLET PO ×2 (09:04→21:22)
[2025-01-24] MEDS: guaiFENesin Liq 100 MG/5 ML LIQUID 300 MG PO ×2 (11:00→21:23)
[2025-01-24] MEDS: ALPRAZolam 0.5 MG TABLET PO (14:30)
[2025-01-24] MEDS: HYDRO PO (17:00)
[2025-01-24] MEDS: ACET PO (17:00)
--- NOTE | 2025-01-24 18:43 | PC.NURSE ---
Resident is awake and alert, no complaints. remains on Xanax with no anxiety or discomfort.Will continue to monitor.
--- NOTE | 2025-01-24 20:57 | PD.SAPROG ---
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 (2) Chronic respiratory failure with hypoxia and hypercapnia: Status: Chronic (3) Ventilator dependent: Status: Chronic (4) Congestive heart failure: Status: Chronic (5) Chronic obstructive pulmonary disease, unspecified: Status: Chronic (6) Atrial fibrillation: Status: Chronic (7) Tracheostomy in place: Status: Chronic (8) Chronic anemia: Status: Chronic SUBJECTIVE Fever:: none GI:: none Shortness of Breath:: unchanged GI:: nausea Pain:: none OBJECTIVE Most recent vital signs: Last Vital Signs Temp 97.4 F 01/24/25 18:00 Pulse 89 01/24/25 18:09 Resp 15 01/24/25 18:09 BP 140/79 H 01/24/25 18:00 Pulse Ox 100 01/24/25 18:09 O2 Del Method Mechanical Ventilation 01/24/25 18:00 FiO2 45 01/24/25 18:09 Neurological:: alert Speech:: nods head, mouths words and appropriate Answers questions:: yes Respiratory:: shallow breathing and rhonchi Cardiovascular: irregular Abdomen: soft Tracheostomy:: to ventilator Feeding per:: po ASSESSMENT & PLAN Assessment: stable. Tolerating ventilatory support. Not weanable because of generalized weakness. Tolerating feeding. Prognosis is very guarded. Patient aware. Tracheostomy revision done surgically. Psychotropics: Xanax 0.5 mgs bid has really done well to settle her anxiety. no side effects seen. She does not do well on lower titration of anxiety meds. No new issues. Had a bedside conversation on quality of life and end of life care at pt's request. Pt remains comfortable on current meds. 08-11-24 had a detailed conversation with pt's son about progressively worsening condition as expected in end stage COPD ventilator dependent and now more weak/inability to thrive. Code status was discussed and the extremely poor prognosis. 08-16-24 Pt's Hb was critical and hence ordered two units packed rbcs. Pt was in no distress. Post infusion levels are improved. No new complaints 09-23-24: She had an episode of being less responsive today but recovered quickly and blood gases checked stat which were normal ph 7.43, but PaO2 was low at 50mm Hg and saturations were good at 97%. Recently transferred to the ER for respiratory distress and dropping O2 saturations. Received back with diagnosis of Pneumonia and on antibiotics. stable and no fever. Regular tracheostomy change was difficult for the respiratroy tech and hence request to Gen. surgeon made and needful done, Now stable. No complaints. VSS . O2 saturations good on FiO2 of 45%. Pt maintaining good temperament and content. Pt decided against Tracheostomy revision which was scheduled by surgery and hence cancelled. Comfortable. Anxiety medicine not being used often hence decreased to q 12 hrly prn. tolerating it well. Pt's son visits her from time to time in person and kept updated. Tolerating her feeding well.mostly cheerful, VSS. Occasional need for extra prn nebulized treatments. Plan: Current treatment as well as ventilator settings reviewed and continued.
[2025-01-24] MEDS: ACETAMINOPHEN 325 MG TABLET 650 MG PO (21:22)
[2025-01-25] VITALS (12 sets, daily range): BP systolic 100–122; BP diastolic 59–68; PULSE 66–95; RESP 14–19; TEMP 36.5–36.8; O2SAT 98–100
[2025-01-25] MEDS: HYDRO PO ×2 (01:43→17:31)
[2025-01-25] MEDS: ACET PO ×2 (01:43→17:31)
[2025-01-25] MEDS: IPRATROPIUM/ALBUTEROL 3 ML AMPUL.NEB INH ×6 (02:05→22:55)
[2025-01-25] MEDS: MIDODRINE 10 MG TABLET PO ×4 (05:32→23:06)
[2025-01-25] MEDS: BISACODYL 10 MG SUPP.RECT PR (05:32)
[2025-01-25] MEDS: BUDESONIDE 0.5 MG/2 ML AMPUL.NEB INH ×2 (06:10→18:00)
[2025-01-25] MEDS: AMIODARONE 200 MG TABLET PO (08:00)
[2025-01-25] MEDS: VITAMIN B COMPLEX PO (08:01)
[2025-01-25] MEDS: DEX/HYPRO/GLY ARTIFICAL TEARS 225 DROP/15 ML BTL BOTH EYES ×2 (08:01→21:41)
[2025-01-25] MEDS: MULTIVITAMIN 1 TAB TABLET PO (08:01)
[2025-01-25] MEDS: FAMOTIDINE 20 MG TABLET PO ×2 (08:01→21:41)
[2025-01-25] MEDS: SENNOSIDES 8.6 MG TABLET PO ×2 (08:01→21:41)
[2025-01-25] MEDS: ASCORBIC ACID 500 MG TABLET PO ×2 (08:01→21:40)
[2025-01-25] MEDS: SILVER NITRATE APPLICATOR 1 EACH STICK..EA. TOP (09:45)
[2025-01-25] MEDS: guaiFENesin Liq 100 MG/5 ML LIQUID 300 MG PO (18:23)
[2025-01-25] MEDS: ALPRAZolam 0.5 MG TABLET PO (18:41)
--- NOTE | 2025-01-25 19:34 | PC.RT ---
pt looked comfortable before tx no distress noted once tx finished pt begin to look labored, grunting, and diaphoretic, auscultated diminish bs a faint expiratory wheez throughout, pip pressured in the 40s, suction small yellow thick sputum, tidal volumes in the 400s, spo2 99% hr 92, pt complaining of sob and asking for a boost of 100% oxygen, explain to pt that spo2 is 99% a boost will not further increase her spo2, am nurse made aware, pt started to look slightly better post 20 min of her tx, still complaining of sob, no more diaphoretic, RR in the 20s, no grunting noted. RT in the room from 1800 to 1820.
[2025-01-25] MEDS: ONDANSETRON HCL 4 MG TABLET PO (23:32)
[2025-01-26] VITALS (11 sets, daily range): BP systolic 102–148; BP diastolic 54–73; PULSE 58–87; RESP 14–18; TEMP 36.3–36.9; O2SAT 97–100
[2025-01-26] MEDS: guaiFENesin Liq 100 MG/5 ML LIQUID 300 MG PO ×2 (01:43→18:34)
[2025-01-26] MEDS: IPRATROPIUM/ALBUTEROL 3 ML AMPUL.NEB INH ×5 (02:00→18:04)
[2025-01-26] MEDS: MIDODRINE 10 MG TABLET PO ×2 (05:17→11:34)
[2025-01-26] MEDS: BUDESONIDE 0.5 MG/2 ML AMPUL.NEB INH ×2 (06:09→18:04)
[2025-01-26] MEDS: ALPRAZolam 0.5 MG TABLET PO ×2 (06:15→21:00)
[2025-01-26] MEDS: AMIODARONE 200 MG TABLET PO (08:02)
[2025-01-26] MEDS: VITAMIN B COMPLEX PO (08:03)
[2025-01-26] MEDS: FAMOTIDINE 20 MG TABLET PO ×2 (08:03→20:43)
[2025-01-26] MEDS: DEX/HYPRO/GLY ARTIFICAL TEARS 225 DROP/15 ML BTL BOTH EYES ×2 (08:03→20:43)
[2025-01-26] MEDS: SENNOSIDES 8.6 MG TABLET PO ×2 (08:03→20:43)
[2025-01-26] MEDS: ASCORBIC ACID 500 MG TABLET PO ×2 (08:03→20:42)
[2025-01-26] MEDS: MULTIVITAMIN 1 TAB TABLET PO (08:03)
[2025-01-26] MEDS: ACETAMINOPHEN 325 MG TABLET 650 MG PO (11:34)
--- NOTE | 2025-01-26 14:47 | PC.SS ---
This SSD followed up with resident to check her emotional well being as she has more traffic near her room due to new neighbor across [place]. Resident stated she is doing well and does not feel any different and feels safe. Resident said she does not feel the need to move to another room and would like to stay in current room. This SSD will continue to make daily contact with resident and monitor for changes in mood and behavior.
[2025-01-26] MEDS: ACET PO (15:32)
[2025-01-26] MEDS: HYDRO PO (15:32)
[2025-01-26] MEDS: ONDANSETRON HCL 4 MG TABLET PO (20:30)
[2025-01-27] VITALS (12 sets, daily range): BP systolic 95–131; BP diastolic 52–69; PULSE 63–89; RESP 14–20; TEMP 36.1–37; O2SAT 97–100
[2025-01-27] MEDS: guaiFENesin Liq 100 MG/5 ML LIQUID 300 MG PO ×3 (00:15→22:00)
[2025-01-27] MEDS: MIDODRINE 10 MG TABLET PO ×4 (00:39→18:03)
[2025-01-27] MEDS: IPRATROPIUM/ALBUTEROL 3 ML AMPUL.NEB INH ×5 (07:15→22:06)
[2025-01-27] MEDS: BUDESONIDE 0.5 MG/2 ML AMPUL.NEB INH ×2 (07:15→16:30)
[2025-01-27] MEDS: AMIODARONE 200 MG TABLET PO (08:05)
[2025-01-27] MEDS: MULTIVITAMIN 1 TAB TABLET PO (08:06)
[2025-01-27] MEDS: FAMOTIDINE 20 MG TABLET PO ×2 (08:06→20:07)
[2025-01-27] MEDS: DEX/HYPRO/GLY ARTIFICAL TEARS 225 DROP/15 ML BTL BOTH EYES ×2 (08:06→20:07)
[2025-01-27] MEDS: ASCORBIC ACID 500 MG TABLET PO ×2 (08:06→20:07)
[2025-01-27] MEDS: VITAMIN B COMPLEX PO (08:06)
[2025-01-27] MEDS: SENNOSIDES 8.6 MG TABLET PO ×2 (08:06→20:07)
[2025-01-27] MEDS: ALPRAZolam 0.5 MG TABLET PO (16:24)
[2025-01-27] MEDS: ACET PO (20:05)
[2025-01-27] MEDS: HYDRO PO (20:05)
[2025-01-28] VITALS (13 sets, daily range): BP systolic 116–135; BP diastolic 62–73; PULSE 66–87; RESP 15–20; TEMP 36.4–36.5; O2SAT 98–100
[2025-01-28] MEDS: MIDODRINE 10 MG TABLET PO (00:09)
[2025-01-28] MEDS: IPRATROPIUM/ALBUTEROL 3 ML AMPUL.NEB INH ×6 (02:07→22:03)
[2025-01-28] MEDS: BUDESONIDE 0.5 MG/2 ML AMPUL.NEB INH ×2 (06:15→18:09)
[2025-01-28] MEDS: ASCORBIC ACID 500 MG TABLET PO ×2 (09:03→20:02)
[2025-01-28] MEDS: FAMOTIDINE 20 MG TABLET PO ×2 (09:04→20:03)
[2025-01-28] MEDS: DEX/HYPRO/GLY ARTIFICAL TEARS 225 DROP/15 ML BTL BOTH EYES ×2 (09:04→21:40)
[2025-01-28] MEDS: SENNOSIDES 8.6 MG TABLET PO ×2 (09:04→20:03)
[2025-01-28] MEDS: MULTIVITAMIN 1 TAB TABLET PO (09:04)
[2025-01-28] MEDS: VITAMIN B COMPLEX PO (09:04)
[2025-01-28] MEDS: ALPRAZolam 0.5 MG TABLET PO (12:30)
[2025-01-28] MEDS: guaiFENesin Liq 100 MG/5 ML LIQUID 300 MG PO ×2 (14:30→20:02)
--- NOTE | 2025-01-28 15:25 | ESPR_ITS ---
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 (2) Chronic respiratory failure with hypoxia and hypercapnia: Status: Chronic (3) Ventilator dependent: Status: Chronic (4) Congestive heart failure: Status: Chronic (5) Chronic obstructive pulmonary disease, unspecified: Status: Chronic (6) Atrial fibrillation: Status: Chronic (7) Tracheostomy in place: Status: Chronic (8) Chronic anemia: Status: Chronic SUBJECTIVE Fever:: none GI:: none Shortness of Breath:: unchanged GI:: nausea Pain:: none OBJECTIVE Most recent vital signs: Last Vital Signs Temp 97.6 F 01/28/25 12:00 Pulse 66 01/28/25 14:05 Resp 15 01/28/25 14:05 BP 120/62 01/28/25 12:00 Pulse Ox 99 01/28/25 14:05 O2 Del Method Mechanical Ventilation 01/28/25 06:00 FiO2 45 01/28/25 14:05 Neurological:: alert Speech:: nods head, mouths words and appropriate Answers questions:: yes Respiratory:: shallow breathing and rhonchi Cardiovascular: irregular Abdomen: soft Tracheostomy:: to ventilator Feeding per:: po ASSESSMENT & PLAN Assessment: stable. Tolerating ventilatory support. Not weanable because of generalized weakness. Tolerating feeding. Prognosis is very guarded. Patient aware. Tracheostomy revision done surgically. Psychotropics: Xanax 0.5 mgs bid has really done well to settle her anxiety. no side effects seen. She does not do well on lower titration of anxiety meds. No new issues. Had a bedside conversation on quality of life and end of life care at pt's request. Pt remains comfortable on current meds. 08-11-24 had a detailed conversation with pt's son about progressively worsening condition as expected in end stage COPD ventilator dependent and now more weak/inability to thrive. Code status was discussed and the extremely poor prognosis. 08-16-24 Pt's Hb was critical and hence ordered two units packed rbcs. Pt was in no distress. Post infusion levels are improved. No new complaints 09-23-24: She had an episode of being less responsive today but recovered quickly and blood gases checked stat which were normal ph 7.43, but PaO2 was low at 50mm Hg and saturations were good at 97%. Recently transferred to the ER for respiratory distress and dropping O2 saturations. Received back with diagnosis of Pneumonia and on antibiotics. stable and no fever. Regular tracheostomy change was difficult for the respiratroy tech and hence request to Gen. surgeon made and needful done, Now stable. No complaints. VSS . O2 saturations good on FiO2 of 45%. Pt maintaining good temperament and content. Pt decided against Tracheostomy revision which was scheduled by surgery and hence cancelled. Comfortable. Anxiety medicine not being used often hence decreased to q 12 hrly prn. tolerating it well. Pt's son visits her from time to time in person and kept updated. Tolerating her feeding well.mostly cheerful, VSS. Occasional need for extra prn nebulized t reatments.comfort achieved. Plan: Current treatment as well as ventilator settings reviewed and continued.
--- NOTE | 2025-01-28 15:35 | PC.SS ---
Room visit: Resident is laying in bed with head of the bed elevated with call light properly placed with no signs of distress. Resident is well groomed with call light properly placed. Resident has no changes in care and condition, to remain in subacute care and will have all subacute care needs met by staff. SSD will continue to make daily contact with resident and monitor for changes in mood and behavior.
--- NOTE | 2025-01-28 15:54 | PC.SS ---
Resident mood is adequate, she does have anxiety relater to her respiratory difficulty. Resident will continue on medication regimen per MD order. This SSD will continue to make daily contact with resident and monitor for changes in mood and behavior.
--- NOTE | 2025-01-28 17:10 | PC.NURSE ---
Resident hasn't been drinking enough water and usually drinks soda. It was discussed to the resident the importance of water and verbalized understanding. Discussed with RD today and resident and agreed for the water flush PGT every shift
[2025-01-28] MEDS: ACET PO (19:57)
[2025-01-28] MEDS: HYDRO PO (19:57)
[2025-01-29] VITALS (14 sets, daily range): BP systolic 93–134; BP diastolic 56–76; PULSE 70–92; RESP 14–21; TEMP 36.4–36.7; O2SAT 99–100
[2025-01-29] MEDS: IPRATROPIUM/ALBUTEROL 3 ML AMPUL.NEB INH ×6 (02:13→22:04)
[2025-01-29] MEDS: guaiFENesin Liq 100 MG/5 ML LIQUID 300 MG PO ×3 (04:00→20:05)
[2025-01-29] MEDS: BUDESONIDE 0.5 MG/2 ML AMPUL.NEB INH ×2 (06:35→18:14)
[2025-01-29 07:10] LABS: Basophils % (Auto) 0 % (0-2.5); Eosinophils # (Auto) 0.3 Thou/mm3 (0.0-0.5); Eosinophils % (Auto) 3 % (0-10); Immature Granulocytes % (Auto) 0 % (0-0); Immature Granulocytes Auto 0.05 Thou/mm3 (0.00-0.00); Lymphocytes # (Auto) 1.4 Thou/mm3 (1.0-4.8); Lymphocytes % (Auto) 12 % (10-50); Mean Corpuscular HGB Conc 30.4 g/dl (31.0-37.0); Mean Corpuscular Volume 105 fL (80-100); Monocytes % (Auto) 9 % (0-12); Neutrophils % (Auto) 76 % (37-80); Nucleated Red Blood Cell % 0 /100 WBC (0); Platelet Count 178 Thou/mm3 (140-440); RDW Standard Deviation 61.8 fL (36.4-46.3); Red Blood Count 2.47 Miln/mm3 (4.00-5.20); White Blood Count 11.8 Thou/mm3 (3.6-11.0)
[2025-01-29 07:23] LABS: Hemoglobin 7.9 g/dL (12.0-16.0)
[2025-01-29 07:33] LABS: Alanine Aminotransferase 11 U/L (10-49); Albumin/Globulin Ratio 1.4 (1.2-2.2); Alkaline Phosphatase 89 U/L (46-116); Anion Gap 4 (7-16); Aspartate Amino Transferase 17 U/L (0-34); BUN/Creatinine Ratio 40 Ratio (12-20); Bilirubin,Total 0.3 mg/dL (0.3-1.2); Blood Urea Nitrogen 20 mg/dL (9-23); Calcium 9.2 mg/dL (8.3-10.6); Calcium (Corrected) 9.2 mg/dL (8.5-10.1); Chloride 98 mMol/L (98-107); Creatinine (Component) 0.5 mg/dL (0.6-1.3); Estimated Creatinine Clearance 67.6 mL/min (>60); Globulin 2.8 gm/dL (2.3-3.5); Glucose 93 mg/dL (74-106); Osmolality,Calculated 283 (275-295); Potassium 4.5 mMol/L (3.4-5.1); Sodium 141 mMol/L (136-145); Total Protein 6.8 gm/dL (5.7-8.2); eGFR > 60 See Note
[2025-01-29] MEDS: ALPRAZolam 0.5 MG TABLET PO ×2 (08:45→21:00)
[2025-01-29] MEDS: DEX/HYPRO/GLY ARTIFICAL TEARS 225 DROP/15 ML BTL BOTH EYES ×2 (08:59→20:57)
[2025-01-29] MEDS: VITAMIN B COMPLEX PO (09:00)
[2025-01-29] MEDS: FAMOTIDINE 20 MG TABLET PO ×2 (09:00→20:58)
[2025-01-29] MEDS: SENNOSIDES 8.6 MG TABLET PO ×2 (09:00→20:58)
[2025-01-29] MEDS: MULTIVITAMIN 1 TAB TABLET PO (09:00)
[2025-01-29] MEDS: ASCORBIC ACID 500 MG TABLET PO ×2 (09:01→20:57)
[2025-01-29] MEDS: MIDODRINE 10 MG TABLET PO (12:15)
[2025-01-29] MEDS: HYDRO PO (13:45)
[2025-01-29] MEDS: ACET PO (13:45)
--- NOTE | 2025-01-29 17:07 | PC.NURSE ---
Reviewed Ms. Blakely' CBC results with MD, WBC 11.8 H, Hgb 7.9 L, Hct 26.0 L, Neut 9.0 H, [place] 1.0 H, Carbon Dioxide 39.0 H, Anion Gap 4 L, BUN/Creatinine Ratio 40 H. Vital signs remain within normal limits, she usually receives Xanax daily (Q12H) for anxiety related to shortness of breath/restlessness; [place]/Mickey 5-325mg Q8H; Duoneb Q4H, and Budesonide BID. Per MD no new order at this time. Continue medication regiment as ordered.
[2025-01-29] MEDS: ONDANSETRON HCL 4 MG TABLET PO (22:32)
[2025-01-30] VITALS (12 sets, daily range): BP systolic 109–168; BP diastolic 59–69; PULSE 61–78; RESP 14–19; TEMP 36.4–36.6; O2SAT 99–100
[2025-01-30] MEDS: IPRATROPIUM/ALBUTEROL 3 ML AMPUL.NEB INH ×6 (02:04→22:21)
[2025-01-30] MEDS: guaiFENesin Liq 100 MG/5 ML LIQUID 300 MG PO ×4 (04:00→23:29)
[2025-01-30] MEDS: MIDODRINE 10 MG TABLET PO ×2 (05:19→11:21)
[2025-01-30] MEDS: BUDESONIDE 0.5 MG/2 ML AMPUL.NEB INH ×2 (07:30→18:16)
[2025-01-30] MEDS: ASCORBIC ACID 500 MG TABLET PO ×2 (09:02→20:40)
[2025-01-30] MEDS: AMIODARONE 200 MG TABLET PO (09:02)
[2025-01-30] MEDS: SENNOSIDES 8.6 MG TABLET PO ×2 (09:03→20:41)
[2025-01-30] MEDS: MULTIVITAMIN 1 TAB TABLET PO (09:03)
[2025-01-30] MEDS: FAMOTIDINE 20 MG TABLET PO ×2 (09:03→20:41)
[2025-01-30] MEDS: VITAMIN B COMPLEX PO (09:04)
[2025-01-30] MEDS: ALPRAZolam 0.5 MG TABLET PO ×2 (11:20→23:29)
[2025-01-30] MEDS: ACETAMINOPHEN 325 MG TABLET 650 MG PO ×2 (11:21→23:29)
[2025-01-30] MEDS: ACET PO (17:49)
[2025-01-30] MEDS: HYDRO PO (17:49)
--- NOTE | 2025-01-30 18:04 | XR_ITS ---
Examination: AP chest single view Technique one AP portable sitting chest single view Exam date and time: January 30, 2025 1838 hrs. Comparison January 11, 2025 Indications: Shortness of breath today. Findings: COPD with significant hyperexpansion Accentuation of the basilar bronchovascular markings Large central pulmonary arteries Cavitary disease versus bullous change in the right apex again noted Tracheostomy tube tip 8.3 cm above ayaan Impression: COPD Pulmonary artery hypertension Bronchitis pattern Stable bullous change versus cavitary lesion right upper lobe
--- NOTE | 2025-01-30 18:09 | XR_ITS ---
Examination: AP lateral soft tissue neck 2 views Technique: AP lateral soft tissue neck 2 views Exam date and time: January 30, 2025 1839 hrs. Indications: Difficulty breathing today, clinical diagnosis pneumomediastinum Findings: Tracheostomy tube noted Bullous change versus cavitary lesion right apex No pneumomediastinum Impression: No pneumomediastinum noted
--- NOTE | 2025-01-30 18:12 | PC.NURSE ---
Resident c/o sob after licensed nurse did her treatment and was in flat position and noted with neck air bubble to left side of the neck. V/S taken as follows: 147/70, 100%, 81, 18, 98.2. Not in distress. Dr Salazar was notified and ordered for STAT x-ray to neck and lungs.
--- NOTE | 2025-01-30 20:25 | PC.NURSE ---
1944- made aware of soft tissue x-ray and chest x-ray results, no new orders at this time, resident in room resting, no c/o pain or discomfort at this time.
[2025-01-30] MEDS: DEX/HYPRO/GLY ARTIFICAL TEARS 225 DROP/15 ML BTL BOTH EYES (20:40)
[2025-01-31] VITALS (13 sets, daily range): BP systolic 103–165; BP diastolic 63–90; PULSE 58–92; RESP 14–19; TEMP 36.2–36.8; O2SAT 98–100
[2025-01-31] MEDS: IPRATROPIUM/ALBUTEROL 3 ML AMPUL.NEB INH ×6 (02:27→22:20)
[2025-01-31] MEDS: MIDODRINE 10 MG TABLET PO ×2 (05:49→23:50)
[2025-01-31] MEDS: ACETAMINOPHEN 325 MG TABLET 650 MG PO (07:11)
[2025-01-31] MEDS: guaiFENesin Liq 100 MG/5 ML LIQUID 300 MG PO ×2 (07:11→20:25)
[2025-01-31] MEDS: AMIODARONE 200 MG TABLET PO (08:57)
[2025-01-31] MEDS: MULTIVITAMIN 1 TAB TABLET PO (08:58)
[2025-01-31] MEDS: FAMOTIDINE 20 MG TABLET PO ×2 (08:58→21:54)
[2025-01-31] MEDS: DEX/HYPRO/GLY ARTIFICAL TEARS 225 DROP/15 ML BTL BOTH EYES ×2 (08:58→21:53)
[2025-01-31] MEDS: VITAMIN B COMPLEX PO (08:58)
[2025-01-31] MEDS: SENNOSIDES 8.6 MG TABLET PO ×2 (08:58→21:54)
[2025-01-31] MEDS: ASCORBIC ACID 500 MG TABLET PO ×2 (08:58→21:53)
[2025-01-31] MEDS: ALPRAZolam 0.5 MG TABLET PO (11:59)
--- NOTE | 2025-01-31 14:45 | PC.SS ---
Room visit: Resident is in bed with head of the bed elevated, she is in good spirits seen smiling and engaging with staff. Resident said is is doing well and has no questions or concerns. This SSD will continue to make daily contact with resident and will monitor for changes in mood and behavior.
[2025-01-31] MEDS: HYDRO PO (16:13)
[2025-01-31] MEDS: ACET PO (16:13)
[2025-01-31] MEDS: BUDESONIDE 0.5 MG/2 ML AMPUL.NEB INH (18:20)
[2025-02-01] VITALS (11 sets, daily range): BP systolic 100–125; BP diastolic 58–76; PULSE 60–81; RESP 14–22; TEMP 36.2–36.6; O2SAT 98–100
[2025-02-01] MEDS: HYDRO PO (00:15)
[2025-02-01] MEDS: ACET PO (00:15)
[2025-02-01] MEDS: ALPRAZolam 0.5 MG TABLET PO ×2 (01:44→20:02)
[2025-02-01] MEDS: IPRATROPIUM/ALBUTEROL 3 ML AMPUL.NEB INH ×6 (02:12→22:47)
[2025-02-01] MEDS: MIDODRINE 10 MG TABLET PO ×3 (05:19→17:04)
[2025-02-01] MEDS: BUDESONIDE 0.5 MG/2 ML AMPUL.NEB INH (06:26)
[2025-02-01] MEDS: AMIODARONE 200 MG TABLET PO (08:00)
[2025-02-01] MEDS: DEX/HYPRO/GLY ARTIFICAL TEARS 225 DROP/15 ML BTL BOTH EYES ×2 (08:00→20:08)
[2025-02-01] MEDS: ASCORBIC ACID 500 MG TABLET PO ×2 (08:00→20:05)
[2025-02-01] MEDS: MULTIVITAMIN 1 TAB TABLET PO (08:00)
[2025-02-01] MEDS: FAMOTIDINE 20 MG TABLET PO ×2 (08:00→20:08)
[2025-02-01] MEDS: SENNOSIDES 8.6 MG TABLET PO ×2 (08:01→20:08)
[2025-02-01] MEDS: VITAMIN B COMPLEX PO (08:01)
[2025-02-01] MEDS: SILVER NITRATE APPLICATOR 1 EACH STICK..EA. TOP (09:30)
[2025-02-01] MEDS: guaiFENesin Liq 100 MG/5 ML LIQUID 300 MG PO (16:41)
[2025-02-01] MEDS: ONDANSETRON HCL 4 MG TABLET PO (16:50)
--- NOTE | 2025-02-01 22:13 | ESPR_ITS ---
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 (2) Chronic respiratory failure with hypoxia and hypercapnia: Status: Chronic (3) Ventilator dependent: Status: Chronic (4) Congestive heart failure: Status: Chronic (5) Chronic obstructive pulmonary disease, unspecified: Status: Chronic (6) Atrial fibrillation: Status: Chronic (7) Tracheostomy in place: Status: Chronic (8) Chronic anemia: Status: Chronic SUBJECTIVE Fever:: none GI:: none Shortness of Breath:: unchanged GI:: nausea Pain:: none OBJECTIVE Most recent vital signs: Last Vital Signs Temp 97.2 F 02/01/25 17:43 Pulse 66 02/01/25 17:43 Resp 19 02/01/25 17:43 BP 125/76 02/01/25 17:43 Pulse Ox 99 02/01/25 17:43 O2 Del Method Mechanical Ventilation 02/01/25 06:00 FiO2 45 02/01/25 16:41 Neurological:: alert Speech:: nods head, mouths words and appropriate Answers questions:: yes Respiratory:: shallow breathing and rhonchi Cardiovascular: irregular Abdomen: soft Tracheostomy:: to ventilator Feeding per:: po ASSESSMENT & PLAN Assessment: stable. Tolerating ventilatory support. Not weanable because of generalized weakness. Tolerating feeding. Prognosis is very guarded. Patient aware. Tracheostomy revision done surgically. Psychotropics: Xanax 0.5 mgs bid has really done well to settle her anxiety. no side effects seen. She does not do well on lower titration of anxiety meds. No new issues. Had a bedside conversation on quality of life and end of life care at pt's request. Pt remains comfortable on current meds. 08-11-24 had a detailed conversation with pt's son about progressively worsening condition as expected in end stage COPD ventilator dependent and now more weak/inability to thrive. Code status was discussed and the extremely poor prognosis. 08-16-24 Pt's Hb was critical and hence ordered two units packed rbcs. Pt was in no distress. Post infusion levels are improved. No new complaints 09-23-24: She had an episode of being less responsive today but recovered quickly and blood gases checked stat which were normal ph 7.43, but PaO2 was low at 50mm Hg and saturations were good at 97%. Recently transferred to the ER for respiratory distress and dropping O2 saturations. Received back with diagnosis of Pneumonia and on antibiotics. stable and no fever. Regular tracheostomy change was difficult for the respiratroy tech and hence request to Gen. surgeon made and needful done, Now stable. No complaints. VSS . O2 saturations good on FiO2 of 45%. Pt maintaining good temperament and content. Pt decided against Tracheostomy revision which was scheduled by surgery and hence cancelled. Comfortable. Anxiety medicine not being used often hence decreased to q 12 hrly prn. tolerating it well. Pt's son visits her from time to time in person and kept updated. Tolerating her feeding well.mostly cheerful, VSS. Occasional need for extra prn nebulized t reatments.comfort achieved. VSS Plan: Current treatment as well as ventilator settings reviewed and continued.
[2025-02-02] VITALS (11 sets, daily range): BP systolic 106–138; BP diastolic 61–70; PULSE 62–88; RESP 14–20; TEMP 36.3–36.8; O2SAT 96–100
[2025-02-02] MEDS: guaiFENesin Liq 100 MG/5 ML LIQUID 300 MG PO ×4 (03:04→23:19)
[2025-02-02] MEDS: HYDRO PO (05:35)
[2025-02-02] MEDS: ACET PO (05:35)
[2025-02-02] MEDS: IPRATROPIUM/ALBUTEROL 3 ML AMPUL.NEB INH ×5 (06:32→22:05)
[2025-02-02] MEDS: BUDESONIDE 0.5 MG/2 ML AMPUL.NEB INH ×2 (06:32→17:51)
[2025-02-02] MEDS: ASCORBIC ACID 500 MG TABLET PO ×2 (08:02→21:11)
[2025-02-02] MEDS: AMIODARONE 200 MG TABLET PO (08:02)
[2025-02-02] MEDS: DEX/HYPRO/GLY ARTIFICAL TEARS 225 DROP/15 ML BTL BOTH EYES ×2 (08:02→21:11)
[2025-02-02] MEDS: FAMOTIDINE 20 MG TABLET PO ×2 (08:02→21:11)
[2025-02-02] MEDS: VITAMIN B COMPLEX PO (08:03)
[2025-02-02] MEDS: SENNOSIDES 8.6 MG TABLET PO ×2 (08:03→21:12)
[2025-02-02] MEDS: MULTIVITAMIN 1 TAB TABLET PO (08:03)
[2025-02-02] MEDS: MIDODRINE 10 MG TABLET PO (11:38)
[2025-02-02] MEDS: ACETAMINOPHEN 325 MG TABLET 650 MG PO ×2 (17:14→23:20)
[2025-02-02] MEDS: ALPRAZolam 0.5 MG TABLET PO (17:39)
[2025-02-03] VITALS (13 sets, daily range): BP systolic 90–174; BP diastolic 54–82; PULSE 64–90; RESP 14–20; TEMP 36.6–36.8; O2SAT 99–100
[2025-02-03] MEDS: MIDODRINE 10 MG TABLET PO ×4 (00:20→18:12)
[2025-02-03] MEDS: IPRATROPIUM/ALBUTEROL 3 ML AMPUL.NEB INH ×6 (03:39→22:05)
[2025-02-03] MEDS: BUDESONIDE 0.5 MG/2 ML AMPUL.NEB INH ×2 (06:46→18:14)
[2025-02-03] MEDS: FAMOTIDINE 20 MG TABLET PO ×2 (08:13→20:22)
[2025-02-03] MEDS: ASCORBIC ACID 500 MG TABLET PO ×2 (08:13→20:21)
[2025-02-03] MEDS: DEX/HYPRO/GLY ARTIFICAL TEARS 225 DROP/15 ML BTL BOTH EYES ×2 (08:13→20:22)
[2025-02-03] MEDS: AMIODARONE 200 MG TABLET PO (08:13)
[2025-02-03] MEDS: MULTIVITAMIN 1 TAB TABLET PO (08:14)
[2025-02-03] MEDS: SENNOSIDES 8.6 MG TABLET PO ×2 (08:14→20:22)
[2025-02-03] MEDS: VITAMIN B COMPLEX PO (08:14)
[2025-02-03] MEDS: ALPRAZolam 0.5 MG TABLET PO (09:08)
[2025-02-03] MEDS: guaiFENesin Liq 100 MG/5 ML LIQUID 300 MG PO ×2 (09:53→15:56)
[2025-02-03] MEDS: HYDRO PO (16:55)
[2025-02-03] MEDS: ACET PO (16:55)
[2025-02-04] VITALS (12 sets, daily range): BP systolic 91–163; BP diastolic 56–72; PULSE 53–77; RESP 14–21; TEMP 36.2–36.9; O2SAT 98–100
[2025-02-04] MEDS: MIDODRINE 10 MG TABLET PO ×2 (00:05→11:38)
[2025-02-04] MEDS: IPRATROPIUM/ALBUTEROL 3 ML AMPUL.NEB INH ×6 (02:01→22:05)
[2025-02-04] MEDS: BUDESONIDE 0.5 MG/2 ML AMPUL.NEB INH ×2 (06:53→16:56)
[2025-02-04] MEDS: ALPRAZolam 0.5 MG TABLET PO ×2 (07:30→21:00)
[2025-02-04] MEDS: FAMOTIDINE 20 MG TABLET PO ×2 (09:13→21:10)
[2025-02-04] MEDS: SENNOSIDES 8.6 MG TABLET PO ×2 (09:13→21:10)
[2025-02-04] MEDS: MULTIVITAMIN 1 TAB TABLET PO (09:13)
[2025-02-04] MEDS: ASCORBIC ACID 500 MG TABLET PO ×2 (09:13→21:09)
[2025-02-04] MEDS: DEX/HYPRO/GLY ARTIFICAL TEARS 225 DROP/15 ML BTL BOTH EYES ×2 (09:13→21:09)
[2025-02-04] MEDS: VITAMIN B COMPLEX PO (09:13)
--- NOTE | 2025-02-04 10:54 | PC.SS ---
Room visit: Resident is laying in bed with head of the elevated with call light properly placed. Resident stated she was happy to see visitors but could not talk too much as she was feeling short of breath. Nurse and [employer] present outside resident door. This SSD will follow up with resident at a later time.
--- NOTE | 2025-02-04 11:29 | PC.NURSE ---
Room visit resident stated she was not feeling good was not able to talk stated she was shortness of breath thank me for the visit.
[2025-02-04] MEDS: HYDRO PO ×2 (16:30→17:30)
[2025-02-04] MEDS: ACET PO ×2 (16:30→17:30)
--- NOTE | 2025-02-04 19:05 | PC.NURSE ---
Resident is awake and alert, continues to complain of shortness of breathe which causes her to be anxious, offered breathing treatment, did not help, given Zantax. 30min. after medication, patient sleeping, will contiue to monitor.
[2025-02-04] MEDS: guaiFENesin Liq 100 MG/5 ML LIQUID 300 MG PO (21:11)
[2025-02-05] VITALS (13 sets, daily range): BP systolic 100–133; BP diastolic 62–71; PULSE 59–90; RESP 14–18; TEMP 35.8–36.6; O2SAT 96–100
[2025-02-05] MEDS: HYDRO PO (01:05)
[2025-02-05] MEDS: ACET PO (01:05)
[2025-02-05] MEDS: IPRATROPIUM/ALBUTEROL 3 ML AMPUL.NEB INH ×6 (02:07→22:14)
[2025-02-05] MEDS: BUDESONIDE 0.5 MG/2 ML AMPUL.NEB INH ×2 (06:49→18:12)
[2025-02-05] MEDS: ONDANSETRON HCL 4 MG TABLET PO (07:20)
[2025-02-05] MEDS: ALPRAZolam 0.5 MG TABLET PO ×2 (09:25→21:30)
[2025-02-05] MEDS: ASCORBIC ACID 500 MG TABLET PO ×2 (09:49→20:50)
[2025-02-05] MEDS: AMIODARONE 200 MG TABLET PO (09:49)
[2025-02-05] MEDS: MULTIVITAMIN 1 TAB TABLET PO (09:49)
[2025-02-05] MEDS: FAMOTIDINE 20 MG TABLET PO ×2 (09:49→20:50)
[2025-02-05] MEDS: VITAMIN B COMPLEX PO (09:50)
[2025-02-05] MEDS: MIDODRINE 10 MG TABLET PO ×2 (12:06→17:50)
[2025-02-05] MEDS: guaiFENesin Liq 100 MG/5 ML LIQUID 300 MG PO (20:00)
--- NOTE | 2025-02-05 20:35 | PD.SAPROG ---
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 (2) Chronic respiratory failure with hypoxia and hypercapnia: Status: Chronic (3) Ventilator dependent: Status: Chronic (4) Congestive heart failure: Status: Chronic (5) Chronic obstructive pulmonary disease, unspecified: Status: Chronic (6) Atrial fibrillation: Status: Chronic (7) Tracheostomy in place: Status: Chronic (8) Chronic anemia: Status: Chronic SUBJECTIVE Fever:: none GI:: none Shortness of Breath:: unchanged GI:: nausea Pain:: none OBJECTIVE Most recent vital signs: Last Vital Signs Temp 96.5 F L 02/05/25 18:00 Pulse 61 02/05/25 18:20 Resp 14 02/05/25 18:20 BP 100/62 02/05/25 18:00 Pulse Ox 100 02/05/25 18:20 O2 Del Method Mechanical Ventilation 02/05/25 06:00 FiO2 40 02/05/25 18:20 Neurological:: alert Speech:: nods head, mouths words and appropriate Answers questions:: yes Respiratory:: shallow breathing and rhonchi Cardiovascular: irregular Abdomen: soft Tracheostomy:: to ventilator Feeding per:: po ASSESSMENT & PLAN Assessment: stable. Tolerating ventilatory support. Not weanable because of generalized weakness. Tolerating feeding. Prognosis is very guarded. Patient aware. Tracheostomy revision done surgically. Psychotropics: Xanax 0.5 mgs bid has really done well to settle her anxiety. no side effects seen. She does not do well on lower titration of anxiety meds. No new issues. Had a bedside conversation on quality of life and end of life care at pt's request. Pt remains comfortable on current meds. 08-11-24 had a detailed conversation with pt's son about progressively worsening condition as expected in end stage COPD ventilator dependent and now more weak/inability to thrive. Code status was discussed and the extremely poor prognosis. 08-16-24 Pt's Hb was critical and hence ordered two units packed rbcs. Pt was in no distress. Post infusion levels are improved. No new complaints 09-23-24: She had an episode of being less responsive today but recovered quickly and blood gases checked stat which were normal ph 7.43, but PaO2 was low at 50mm Hg and saturations were good at 97%. Recently transferred to the ER for respiratory distress and dropping O2 saturations. Received back with diagnosis of Pneumonia and on antibiotics. stable and no fever. Regular tracheostomy change was difficult for the respiratroy tech and hence request to Gen. surgeon made and needful done, Now stable. No complaints. VSS . O2 saturations good on FiO2 of 45%. Pt maintaining good temperament and content. Pt decided against Tracheostomy revision which was scheduled by surgery and hence cancelled. Comfortable. Anxiety medicine not being used often hence decreased to q 12 hrly prn. tolerating it well. Pt's son visits her from time to time in person and kept updated. Tolerating her feeding well.mostly cheerful, VSS. Occasional need for extra prn nebulized treatments.comfort achieved. VSS Plan: Current treatment as well as ventilator settings reviewed and continued.
[2025-02-05] MEDS: DEX/HYPRO/GLY ARTIFICAL TEARS 225 DROP/15 ML BTL BOTH EYES (20:50)
[2025-02-06] VITALS (10 sets, daily range): BP systolic 91–157; BP diastolic 56–72; PULSE 56–83; RESP 14–18; TEMP 36.4–36.8; O2SAT 98–100
[2025-02-06] MEDS: MIDODRINE 10 MG TABLET PO ×3 (00:17→11:52)
[2025-02-06] MEDS: IPRATROPIUM/ALBUTEROL 3 ML AMPUL.NEB INH ×6 (03:18→22:23)
[2025-02-06] MEDS: BUDESONIDE 0.5 MG/2 ML AMPUL.NEB INH ×2 (06:59→18:09)
[2025-02-06] MEDS: AMIODARONE 200 MG TABLET PO (09:19)
[2025-02-06] MEDS: MULTIVITAMIN 1 TAB TABLET PO (09:20)
[2025-02-06] MEDS: FAMOTIDINE 20 MG TABLET PO ×2 (09:20→20:54)
[2025-02-06] MEDS: ASCORBIC ACID 500 MG TABLET PO ×2 (09:20→20:54)
[2025-02-06] MEDS: VITAMIN B COMPLEX PO (09:20)
[2025-02-06] MEDS: SENNOSIDES 8.6 MG TABLET PO ×2 (09:21→20:54)
[2025-02-06] MEDS: ACETAMINOPHEN 325 MG TABLET 650 MG PO (09:35)
[2025-02-06] MEDS: guaiFENesin Liq 100 MG/5 ML LIQUID 300 MG PO ×2 (09:35→20:54)
[2025-02-06] MEDS: ALPRAZolam 0.5 MG TABLET PO ×2 (09:36→21:35)
[2025-02-06] MEDS: DEX/HYPRO/GLY ARTIFICAL TEARS 225 DROP/15 ML BTL BOTH EYES (20:54)
[2025-02-07] VITALS (12 sets, daily range): BP systolic 117–139; BP diastolic 63–72; PULSE 61–79; RESP 14–20; TEMP 36.3–36.6; O2SAT 98–100
[2025-02-07] MEDS: MIDODRINE 10 MG TABLET PO ×2 (00:52→05:29)
[2025-02-07] MEDS: IPRATROPIUM/ALBUTEROL 3 ML AMPUL.NEB INH ×6 (02:46→22:05)
[2025-02-07] MEDS: guaiFENesin Liq 100 MG/5 ML LIQUID 300 MG PO ×2 (03:34→21:22)
[2025-02-07] MEDS: HYDRO PO (03:34)
[2025-02-07] MEDS: ACET PO (03:34)
[2025-02-07] MEDS: BUDESONIDE 0.5 MG/2 ML AMPUL.NEB INH ×2 (06:10→18:17)
[2025-02-07] MEDS: DEX/HYPRO/GLY ARTIFICAL TEARS 225 DROP/15 ML BTL BOTH EYES ×2 (09:18→21:21)
[2025-02-07] MEDS: MULTIVITAMIN 1 TAB TABLET PO (09:18)
[2025-02-07] MEDS: FAMOTIDINE 20 MG TABLET PO ×2 (09:18→21:21)
[2025-02-07] MEDS: AMIODARONE 200 MG TABLET PO (09:18)
[2025-02-07] MEDS: ASCORBIC ACID 500 MG TABLET PO ×2 (09:18→21:21)
[2025-02-07] MEDS: VITAMIN B COMPLEX PO (09:19)
[2025-02-07] MEDS: ALPRAZolam 0.5 MG TABLET PO ×2 (09:42→22:17)
[2025-02-07] MEDS: SENNOSIDES 8.6 MG TABLET PO (21:22)
[2025-02-08] VITALS (12 sets, daily range): BP systolic 95–125; BP diastolic 58–68; PULSE 61–86; RESP 14–19; TEMP 36–37.2; O2SAT 98–100; BMI 17.9
[2025-02-08] MEDS: IPRATROPIUM/ALBUTEROL 3 ML AMPUL.NEB INH ×6 (03:37→22:35)
[2025-02-08] MEDS: HYDRO PO ×2 (03:40→19:50)
[2025-02-08] MEDS: ACET PO ×2 (03:40→19:50)
[2025-02-08] MEDS: MIDODRINE 10 MG TABLET PO ×3 (05:33→17:13)
[2025-02-08] MEDS: BUDESONIDE 0.5 MG/2 ML AMPUL.NEB INH ×2 (06:10→18:14)
[2025-02-08] MEDS: guaiFENesin Liq 100 MG/5 ML LIQUID 300 MG PO (09:00)
[2025-02-08] MEDS: FAMOTIDINE 20 MG TABLET PO ×2 (09:04→20:01)
[2025-02-08] MEDS: ASCORBIC ACID 500 MG TABLET PO ×2 (09:04→19:59)
[2025-02-08] MEDS: AMIODARONE 200 MG TABLET PO (09:04)
[2025-02-08] MEDS: DEX/HYPRO/GLY ARTIFICAL TEARS 225 DROP/15 ML BTL BOTH EYES ×2 (09:04→20:01)
[2025-02-08] MEDS: MULTIVITAMIN 1 TAB TABLET PO (09:05)
[2025-02-08] MEDS: SENNOSIDES 8.6 MG TABLET PO ×2 (09:05→20:01)
[2025-02-08] MEDS: VITAMIN B COMPLEX PO (09:06)
[2025-02-08] MEDS: ALPRAZolam 0.5 MG TABLET PO (12:55)
[2025-02-08] MEDS: ACETAMINOPHEN 325 MG TABLET 650 MG PO (14:25)
[2025-02-09] VITALS (12 sets, daily range): BP systolic 93–138; BP diastolic 56–76; PULSE 63–89; RESP 14–18; TEMP 36.1–36.5; O2SAT 97–100
[2025-02-09] MEDS: MIDODRINE 10 MG TABLET PO ×2 (00:13→12:11)
[2025-02-09] MEDS: ALPRAZolam 0.5 MG TABLET PO ×2 (00:29→21:02)
[2025-02-09] MEDS: IPRATROPIUM/ALBUTEROL 3 ML AMPUL.NEB INH ×6 (02:01→22:23)
[2025-02-09] MEDS: BUDESONIDE 0.5 MG/2 ML AMPUL.NEB INH ×2 (06:29→18:16)
[2025-02-09] MEDS: ACET PO (07:42)
[2025-02-09] MEDS: HYDRO PO (07:42)
[2025-02-09] MEDS: MULTIVITAMIN 1 TAB TABLET PO (09:25)
[2025-02-09] MEDS: DEX/HYPRO/GLY ARTIFICAL TEARS 225 DROP/15 ML BTL BOTH EYES ×2 (09:25→21:02)
[2025-02-09] MEDS: FAMOTIDINE 20 MG TABLET PO ×2 (09:25→21:02)
[2025-02-09] MEDS: ASCORBIC ACID 500 MG TABLET PO ×2 (09:25→21:02)
[2025-02-09] MEDS: VITAMIN B COMPLEX PO (09:26)
[2025-02-09] MEDS: SENNOSIDES 8.6 MG TABLET PO ×2 (09:26→21:02)
[2025-02-09] MEDS: ONDANSETRON HCL 4 MG TABLET PO (12:18)
--- NOTE | 2025-02-09 13:35 | PD.SAPROG ---
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 (2) Chronic respiratory failure with hypoxia and hypercapnia: Status: Chronic (3) Ventilator dependent: Status: Chronic (4) Congestive heart failure: Status: Chronic (5) Chronic obstructive pulmonary disease, unspecified: Status: Chronic (6) Atrial fibrillation: Status: Chronic (7) Tracheostomy in place: Status: Chronic (8) Chronic anemia: Status: Chronic SUBJECTIVE Fever:: none GI:: none Shortness of Breath:: unchanged GI:: nausea Pain:: none OBJECTIVE Most recent vital signs: Last Vital Signs Temp 98.0 F 02/13/25 18:00 Pulse 78 02/13/25 18:00 Resp 22 H 02/13/25 18:00 BP 158/77 H 02/13/25 18:00 Pulse Ox 100 02/13/25 18:00 O2 Del Method Mechanical Ventilation 02/11/25 16:54 FiO2 40 02/13/25 14:20 Neurological:: alert Speech:: nods head, mouths words and appropriate Answers questions:: yes Respiratory:: shallow breathing and rhonchi Cardiovascular: irregular Abdomen: soft Tracheostomy:: to ventilator Feeding per:: po ASSESSMENT & PLAN Assessment: stable. Tolerating ventilatory support. Not weanable because of generalized weakness. Tolerating feeding. Prognosis is very guarded. Patient aware. Tracheostomy revision done surgically. Psychotropics: Xanax 0.5 mgs bid has really done well to settle her anxiety. no side effects seen. She does not do well on lower titration of anxiety meds. No new issues. Had a bedside conversation on quality of life and end of life care at pt's request. Pt remains comfortable on current meds. 08-11-24 had a detailed conversation with pt's son about progressively worsening condition as expected in end stage COPD ventilator dependent and now more weak/inability to thrive. Code status was discussed and the extremely poor prognosis. 08-16-24 Pt's Hb was critical and hence ordered two units packed rbcs. Pt was in no distress. Post infusion levels are improved. No new complaints 09-23-24: She had an episode of being less responsive today but recovered quickly and blood gases checked stat which were normal ph 7.43, but PaO2 was low at 50mm Hg and saturations were good at 97%. Recently transferred to the ER for respiratory distress and dropping O2 saturations. Received back with diagnosis of Pneumonia and on antibiotics. stable and no fever. Regular tracheostomy change was difficult for the respiratroy tech and hence request to Gen. surgeon made and needful done, Now stable. No complaints. VSS . O2 saturations good on FiO2 of 45%. Pt maintaining good temperament and content. Pt decided against Tracheostomy revision which was scheduled by surgery and hence cancelled. Comfortable. Anxiety medicine not being used often hence decreased to q 12 hrly prn. tolerating it well. Pt's son visits her from time to time in person and kept updated. Tolerating her feeding well.mostly cheerful, VSS. Occasional need for extra prn nebulized treatments.comfort achieved. VSS Plan: Current treatment as well as ventilator settings reviewed and continued.
[2025-02-09] MEDS: ACETAMINOPHEN 325 MG TABLET 650 MG PO (16:23)
[2025-02-10] VITALS (12 sets, daily range): BP systolic 95–124; BP diastolic 56–70; PULSE 64–86; RESP 14–23; TEMP 36.3–36.5; O2SAT 97–99
[2025-02-10] MEDS: guaiFENesin Liq 100 MG/5 ML LIQUID 300 MG PO ×2 (00:59→07:30)
[2025-02-10] MEDS: IPRATROPIUM/ALBUTEROL 3 ML AMPUL.NEB INH ×6 (02:07→22:30)
[2025-02-10] MEDS: HYDRO PO (04:39)
[2025-02-10] MEDS: ACET PO (04:39)
[2025-02-10] MEDS: BUDESONIDE 0.5 MG/2 ML AMPUL.NEB INH ×2 (06:43→18:21)
[2025-02-10] MEDS: AMIODARONE 200 MG TABLET PO (08:08)
[2025-02-10] MEDS: FAMOTIDINE 20 MG TABLET PO ×2 (08:09→21:35)
[2025-02-10] MEDS: DEX/HYPRO/GLY ARTIFICAL TEARS 225 DROP/15 ML BTL BOTH EYES ×2 (08:09→21:35)
[2025-02-10] MEDS: SENNOSIDES 8.6 MG TABLET PO ×2 (08:09→21:35)
[2025-02-10] MEDS: VITAMIN B COMPLEX PO (08:09)
[2025-02-10] MEDS: ASCORBIC ACID 500 MG TABLET PO ×2 (08:09→21:35)
[2025-02-10] MEDS: MULTIVITAMIN 1 TAB TABLET PO (08:09)
[2025-02-10] MEDS: MIDODRINE 10 MG TABLET PO (12:00)
[2025-02-10] MEDS: ACETAMINOPHEN 325 MG TABLET 650 MG PO (13:44)
[2025-02-10] MEDS: ALPRAZolam 0.5 MG TABLET PO (19:51)
[2025-02-11] VITALS (9 sets, daily range): BP systolic 103–139; BP diastolic 64–75; PULSE 60–85; RESP 14–23; TEMP 36.6–36.9; O2SAT 98–99
[2025-02-11] MEDS: guaiFENesin Liq 100 MG/5 ML LIQUID 300 MG PO ×3 (00:24→19:23)
[2025-02-11] MEDS: IPRATROPIUM/ALBUTEROL 3 ML AMPUL.NEB INH ×6 (02:18→23:30)
[2025-02-11] MEDS: MIDODRINE 10 MG TABLET PO ×2 (05:51→17:00)
[2025-02-11] MEDS: BUDESONIDE 0.5 MG/2 ML AMPUL.NEB INH ×2 (06:15→18:10)
[2025-02-11] MEDS: ASCORBIC ACID 500 MG TABLET PO ×2 (09:26→20:45)
[2025-02-11] MEDS: AMIODARONE 200 MG TABLET PO (09:26)
[2025-02-11] MEDS: MULTIVITAMIN 1 TAB TABLET PO (09:27)
[2025-02-11] MEDS: FAMOTIDINE 20 MG TABLET PO ×2 (09:27→20:46)
[2025-02-11] MEDS: DEX/HYPRO/GLY ARTIFICAL TEARS 225 DROP/15 ML BTL BOTH EYES ×2 (09:27→20:45)
[2025-02-11] MEDS: VITAMIN B COMPLEX PO (09:27)
[2025-02-11] MEDS: ALPRAZolam 0.5 MG TABLET PO (10:45)
[2025-02-11] MEDS: ACETAMINOPHEN 325 MG TABLET 650 MG PO (13:54)
--- NOTE | 2025-02-11 14:26 | PC.PT ---
PT dayne completed. RNA/B[employer] program for AROM on BUE/BLE x 1lb AW as tolerated and AROM on BUE as tolerated 3x/wk x 3months. Patient will not be able to tolerate frequency of 5x/wk due to dyspnea.
--- NOTE | 2025-02-11 14:45 | PC.SS ---
Room visit: Resident is laying in bed with head of the bed elevated with call light properly placed with no signs of distress and her son at bedside. Resident has no changes in condition, remains on vent with trach in place and GT for medication and nutrition. Resident is unable to make needs known, decision maker is her son. Resident will remain in current care and will continue to have all subacute care needs met by staff. This SSD will make daily contact with resident and will monitor for changes in mood and behavior
[2025-02-11] MEDS: ACET PO (19:23)
[2025-02-11] MEDS: HYDRO PO (19:23)
[2025-02-12] VITALS (12 sets, daily range): BP systolic 115–171; BP diastolic 66–77; PULSE 62–84; RESP 14–25; TEMP 36.2–36.8; O2SAT 95–100
[2025-02-12] MEDS: IPRATROPIUM/ALBUTEROL 3 ML AMPUL.NEB INH ×6 (02:37→22:05)
[2025-02-12] MEDS: guaiFENesin Liq 100 MG/5 ML LIQUID 300 MG PO ×2 (04:34→16:10)
[2025-02-12] MEDS: ALPRAZolam 0.5 MG TABLET PO ×2 (04:37→21:42)
[2025-02-12] MEDS: BUDESONIDE 0.5 MG/2 ML AMPUL.NEB INH ×2 (06:05→18:48)
--- NOTE | 2025-02-12 06:41 | PC.NURSE ---
RESIDENT HAD REFUSED SENNA AND MILK OF MAGNESIA @ 2100. SHE STATES THAT SHE ALREADY HAD A BOWEL MOVEMENT DURING DAY SHIFT.
[2025-02-12] MEDS: AMIODARONE 200 MG TABLET PO (09:17)
[2025-02-12] MEDS: DEX/HYPRO/GLY ARTIFICAL TEARS 225 DROP/15 ML BTL BOTH EYES ×2 (09:18→21:41)
[2025-02-12] MEDS: MULTIVITAMIN 1 TAB TABLET PO (09:18)
[2025-02-12] MEDS: FAMOTIDINE 20 MG TABLET PO ×2 (09:18→21:41)
[2025-02-12] MEDS: ASCORBIC ACID 500 MG TABLET PO ×2 (09:18→21:40)
[2025-02-12] MEDS: VITAMIN B COMPLEX PO (09:20)
[2025-02-12] MEDS: ACET PO (16:10)
[2025-02-12] MEDS: HYDRO PO (16:10)
[2025-02-12] MEDS: MIDODRINE 10 MG TABLET PO ×2 (17:30→23:50)
[2025-02-12] MEDS: SENNOSIDES 8.6 MG TABLET PO (21:41)
[2025-02-13] VITALS (13 sets, daily range): BP systolic 114–158; BP diastolic 68–78; PULSE 59–84; RESP 14–22; TEMP 36.1–36.7; O2SAT 96–100
[2025-02-13] MEDS: IPRATROPIUM/ALBUTEROL 3 ML AMPUL.NEB INH ×6 (02:02→22:10)
[2025-02-13] MEDS: ACET PO ×2 (04:05→16:45)
[2025-02-13] MEDS: HYDRO PO ×2 (04:05→16:45)
[2025-02-13] MEDS: BUDESONIDE 0.5 MG/2 ML AMPUL.NEB INH ×2 (06:05→18:16)
[2025-02-13] MEDS: DEX/HYPRO/GLY ARTIFICAL TEARS 225 DROP/15 ML BTL BOTH EYES ×2 (09:00→21:10)
[2025-02-13] MEDS: FAMOTIDINE 20 MG TABLET PO ×2 (09:00→21:10)
[2025-02-13] MEDS: MULTIVITAMIN 1 TAB TABLET PO (09:00)
[2025-02-13] MEDS: ASCORBIC ACID 500 MG TABLET PO ×2 (09:00→21:10)
[2025-02-13] MEDS: AMIODARONE 200 MG TABLET PO (09:00)
[2025-02-13] MEDS: SENNOSIDES 8.6 MG TABLET PO ×2 (09:01→21:10)
[2025-02-13] MEDS: VITAMIN B COMPLEX PO (09:01)
[2025-02-13] MEDS: guaiFENesin Liq 100 MG/5 ML LIQUID 300 MG PO ×3 (09:02→21:05)
[2025-02-13] MEDS: ALPRAZolam 0.5 MG TABLET PO (14:32)
[2025-02-13] MEDS: ACETAMINOPHEN 325 MG TABLET 650 MG PO (22:30)
[2025-02-14] VITALS (12 sets, daily range): BP systolic 109–124; BP diastolic 65–83; PULSE 65–79; RESP 15–23; TEMP 36.3–36.9; O2SAT 98–100
[2025-02-14] MEDS: IPRATROPIUM/ALBUTEROL 3 ML AMPUL.NEB INH ×4 (02:34→22:09)
[2025-02-14] MEDS: BUDESONIDE 0.5 MG/2 ML AMPUL.NEB INH ×2 (06:10→17:55)
[2025-02-14] MEDS: FAMOTIDINE 20 MG TABLET PO ×2 (08:22→20:21)
[2025-02-14] MEDS: DEX/HYPRO/GLY ARTIFICAL TEARS 225 DROP/15 ML BTL BOTH EYES ×2 (08:22→20:21)
[2025-02-14] MEDS: AMIODARONE 200 MG TABLET PO (08:22)
[2025-02-14] MEDS: ASCORBIC ACID 500 MG TABLET PO ×2 (08:22→20:21)
[2025-02-14] MEDS: SENNOSIDES 8.6 MG TABLET PO ×2 (08:23→20:21)
[2025-02-14] MEDS: VITAMIN B COMPLEX PO (08:23)
[2025-02-14] MEDS: MULTIVITAMIN 1 TAB TABLET PO (08:23)
[2025-02-14] MEDS: guaiFENesin Liq 100 MG/5 ML LIQUID 300 MG PO ×2 (08:25→15:03)
[2025-02-14] MEDS: ACET PO (09:54)
[2025-02-14] MEDS: HYDRO PO (09:54)
[2025-02-14] MEDS: MIDODRINE 10 MG TABLET PO ×2 (12:35→23:51)
[2025-02-14] MEDS: ALPRAZolam 0.5 MG TABLET PO (20:22)
[2025-02-15] VITALS (11 sets, daily range): BP systolic 104–124; BP diastolic 60–76; PULSE 58–77; RESP 16–24; TEMP 36.1–37.2; O2SAT 99–100
[2025-02-15] MEDS: IPRATROPIUM/ALBUTEROL 3 ML AMPUL.NEB INH ×6 (02:34→22:50)
[2025-02-15] MEDS: ACETAMINOPHEN 325 MG TABLET 650 MG PO (05:02)
[2025-02-15] MEDS: BUDESONIDE 0.5 MG/2 ML AMPUL.NEB INH ×2 (06:29→18:25)
[2025-02-15] MEDS: ASCORBIC ACID 500 MG TABLET PO ×2 (09:31→21:10)
[2025-02-15] MEDS: AMIODARONE 200 MG TABLET PO (09:31)
[2025-02-15] MEDS: DEX/HYPRO/GLY ARTIFICAL TEARS 225 DROP/15 ML BTL BOTH EYES ×2 (09:31→21:10)
[2025-02-15] MEDS: VITAMIN B COMPLEX PO (09:32)
[2025-02-15] MEDS: FAMOTIDINE 20 MG TABLET PO ×2 (09:32→21:10)
[2025-02-15] MEDS: MULTIVITAMIN 1 TAB TABLET PO (09:32)
[2025-02-15] MEDS: SENNOSIDES 8.6 MG TABLET PO ×2 (09:32→21:10)
[2025-02-15] MEDS: HYDRO PO ×2 (09:47→20:03)
[2025-02-15] MEDS: ACET PO ×2 (09:47→20:03)
--- NOTE | 2025-02-15 11:44 | PC.NURSE ---
Resident was offered Milk of Mag PRN per bowel protocol due to no BM since 02/13/2025. Pt refused stated No
[2025-02-15] MEDS: ALPRAZolam 0.5 MG TABLET PO (12:54)
[2025-02-15] MEDS: guaiFENesin Liq 100 MG/5 ML LIQUID 300 MG PO ×2 (12:54→20:00)
[2025-02-16] VITALS (12 sets, daily range): BP systolic 121–147; BP diastolic 65–82; PULSE 49–83; RESP 15–23; TEMP 36–36.7; O2SAT 98–100
[2025-02-16] MEDS: ALPRAZolam 0.5 MG TABLET PO ×2 (01:33→15:21)
[2025-02-16] MEDS: IPRATROPIUM/ALBUTEROL 3 ML AMPUL.NEB INH ×6 (02:11→22:00)
[2025-02-16] MEDS: BUDESONIDE 0.5 MG/2 ML AMPUL.NEB INH ×2 (06:25→18:36)
[2025-02-16] MEDS: ASCORBIC ACID 500 MG TABLET PO ×2 (08:55→08:56)
[2025-02-16] MEDS: DEX/HYPRO/GLY ARTIFICAL TEARS 225 DROP/15 ML BTL BOTH EYES ×2 (08:56→20:04)
[2025-02-16] MEDS: FAMOTIDINE 20 MG TABLET PO ×2 (08:57→20:05)
[2025-02-16] MEDS: MULTIVITAMIN 1 TAB TABLET PO (08:58)
[2025-02-16] MEDS: SENNOSIDES 8.6 MG TABLET PO ×2 (08:58→20:05)
[2025-02-16] MEDS: VITAMIN B COMPLEX PO (08:58)
[2025-02-16] MEDS: guaiFENesin Liq 100 MG/5 ML LIQUID 300 MG PO ×2 (09:30→20:05)
[2025-02-16] MEDS: HYDRO PO ×2 (09:30→20:06)
[2025-02-16] MEDS: ACET PO ×2 (09:30→20:06)
--- NOTE | 2025-02-16 19:13 | PC.NURSE ---
Resident is awake and alert, in no pain at this time . Vital signs are within normal limits. Complain of being anxious because of shortness of breath, was given Xanax, will continue to monitor resident.
[2025-02-17] VITALS (12 sets, daily range): BP systolic 95–129; BP diastolic 61–78; PULSE 58–85; RESP 15–24; TEMP 36–36.3; O2SAT 97–100
[2025-02-17] MEDS: MIDODRINE 10 MG TABLET PO ×4 (00:17→23:06)
[2025-02-17] MEDS: IPRATROPIUM/ALBUTEROL 3 ML AMPUL.NEB INH ×6 (02:08→22:24)
[2025-02-17] MEDS: ALPRAZolam 0.5 MG TABLET PO ×2 (05:05→21:25)
[2025-02-17] MEDS: BUDESONIDE 0.5 MG/2 ML AMPUL.NEB INH ×2 (06:22→18:16)
[2025-02-17] MEDS: ASCORBIC ACID 500 MG TABLET PO ×2 (08:31→21:22)
[2025-02-17] MEDS: FAMOTIDINE 20 MG TABLET PO ×2 (08:32→21:23)
[2025-02-17] MEDS: VITAMIN B COMPLEX PO (08:32)
[2025-02-17] MEDS: SENNOSIDES 8.6 MG TABLET PO ×2 (08:32→21:23)
[2025-02-17] MEDS: MULTIVITAMIN 1 TAB TABLET PO (08:32)
[2025-02-17] MEDS: DEX/HYPRO/GLY ARTIFICAL TEARS 225 DROP/15 ML BTL BOTH EYES ×2 (08:32→21:22)
[2025-02-17] MEDS: MAGNESIUM HYDROXIDE 30 ML ORAL SUSP ML PO (08:35)
[2025-02-17] MEDS: HYDRO PO (09:44)
[2025-02-17] MEDS: ACET PO (09:44)
--- NOTE | 2025-02-17 10:33 | PD.SAPROG ---
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 (2) Chronic respiratory failure with hypoxia and hypercapnia: Status: Chronic (3) Ventilator dependent: Status: Chronic (4) Congestive heart failure: Status: Chronic (5) Chronic obstructive pulmonary disease, unspecified: Status: Chronic (6) Atrial fibrillation: Status: Chronic (7) Tracheostomy in place: Status: Chronic (8) Chronic anemia: Status: Chronic SUBJECTIVE Fever:: none GI:: none Shortness of Breath:: unchanged GI:: nausea Pain:: none OBJECTIVE Most recent vital signs: Last Vital Signs Temp 97.3 F 02/17/25 05:51 Pulse 84 02/17/25 08:31 Resp 17 02/17/25 06:22 BP 95/61 02/17/25 08:31 Pulse Ox 99 02/17/25 06:22 O2 Del Method Mechanical Ventilation 02/16/25 06:00 FiO2 40 02/17/25 06:22 Neurological:: alert Speech:: nods head, mouths words and appropriate Answers questions:: yes Respiratory:: shallow breathing and rhonchi Cardiovascular: irregular Abdomen: soft Tracheostomy:: to ventilator Feeding per:: po ASSESSMENT & PLAN Assessment: stable. Tolerating ventilatory support. Not weanable because of generalized weakness. Tolerating feeding. Prognosis is very guarded. Patient aware. Tracheostomy revision done surgically. Psychotropics: Xanax 0.5 mgs bid has really done well to settle her anxiety. no side effects seen. She does not do well on lower titration of anxiety meds. No new issues. Had a bedside conversation on quality of life and end of life care at pt's request. Pt remains comfortable on current meds. 08-11-24 had a detailed conversation with pt's son about progressively worsening condition as expected in end stage COPD ventilator dependent and now more weak/inability to thrive. Code status was discussed and the extremely poor prognosis. 08-16-24 Pt's Hb was critical and hence ordered two units packed rbcs. Pt was in no distress. Post infusion levels are improved. No new complaints 09-23-24: She had an episode of being less responsive today but recovered quickly and blood gases checked stat which were normal ph 7.43, but PaO2 was low at 50mm Hg and saturations were good at 97%. Recently transferred to the ER for respiratory distress and dropping O2 saturations. Received back with diagnosis of Pneumonia and on antibiotics. stable and no fever. Regular tracheostomy change was difficult for the respiratroy tech and hence request to Gen. surgeon made and needful done, Now stable. No complaints. VSS . O2 saturations good on FiO2 of 45%. Pt maintaining good temperament and content. Pt decided against Tracheostomy revision which was scheduled by surgery and hence cancelled. Comfortable. Anxiety medicine not being used often hence decreased to q 12 hrly prn. tolerating it well. Pt's son visits her from time to time in person and kept updated. Tolerating her feeding well.mostly cheerful, VSS. Plan: Current treatment as well as ventilator settings reviewed and continued.
[2025-02-17] MEDS: ACETAMINOPHEN 325 MG TABLET 650 MG PO (15:18)
[2025-02-17] MEDS: guaiFENesin Liq 100 MG/5 ML LIQUID 300 MG PO ×2 (15:19→21:25)
--- NOTE | 2025-02-17 19:22 | PD.SAPROG ---
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 (2) Chronic respiratory failure with hypoxia and hypercapnia: Status: Chronic (3) Ventilator dependent: Status: Chronic (4) Congestive heart failure: Status: Chronic (5) Chronic obstructive pulmonary disease, unspecified: Status: Chronic (6) Atrial fibrillation: Status: Chronic (7) Tracheostomy in place: Status: Chronic (8) Chronic anemia: Status: Chronic SUBJECTIVE Fever:: none GI:: none Shortness of Breath:: unchanged GI:: nausea Pain:: none OBJECTIVE Most recent vital signs: Last Vital Signs Temp 96.8 F 02/17/25 17:08 Pulse 78 02/17/25 17:08 Resp 16 02/17/25 17:08 BP 110/71 02/17/25 17:08 Pulse Ox 100 02/17/25 14:09 O2 Del Method Mechanical Ventilation 02/16/25 06:00 FiO2 40 02/17/25 14:09 Neurological:: alert Speech:: nods head, mouths words and appropriate Answers questions:: yes Respiratory:: shallow breathing and rhonchi Cardiovascular: irregular Abdomen: soft Tracheostomy:: to ventilator Feeding per:: po ASSESSMENT & PLAN Assessment: stable. Tolerating ventilatory support. Not weanable because of generalized weakness. Tolerating feeding. Prognosis is very guarded. Patient aware. Tracheostomy revision done surgically. Psychotropics: Xanax 0.5 mgs bid has really done well to settle her anxiety. no side effects seen. She does not do well on lower titration of anxiety meds. No new issues. Had a bedside conversation on quality of life and end of life care at pt's request. Pt remains comfortable on current meds. 08-11-24 had a detailed conversation with pt's son about progressively worsening condition as expected in end stage COPD ventilator dependent and now more weak/inability to thrive. Code status was discussed and the extremely poor prognosis. 08-16-24 Pt's Hb was critical and hence ordered two units packed rbcs. Pt was in no distress. Post infusion levels are improved. No new complaints 09-23-24: She had an episode of being less responsive today but recovered quickly and blood gases checked stat which were normal ph 7.43, but PaO2 was low at 50mm Hg and saturations were good at 97%. Recently transferred to the ER for respiratory distress and dropping O2 saturations. Received back with diagnosis of Pneumonia and on antibiotics. stable and no fever. Regular tracheostomy change was difficult for the respiratroy tech and hence request to Gen. surgeon made and needful done, Now stable. No complaints. VSS . O2 saturations good on FiO2 of 45%. Pt maintaining good temperament and content. Pt decided against Tracheostomy revision which was scheduled by surgery and hence cancelled. Comfortable. Anxiety medicine not being used often hence decreased to q 12 hrly prn. tolerating it well. Pt's son visits her from time to time in person and kept updated. Tolerating her feeding well.mostly cheerful, VSS. Plan: Current treatment as well as ventilator settings reviewed and continued.
[2025-02-18] VITALS (14 sets, daily range): BP systolic 107–136; BP diastolic 58–77; PULSE 69–80; RESP 15–22; TEMP 36.2–36.9; O2SAT 95–100
[2025-02-18] MEDS: IPRATROPIUM/ALBUTEROL 3 ML AMPUL.NEB INH ×6 (02:11→22:30)
[2025-02-18] MEDS: BUDESONIDE 0.5 MG/2 ML AMPUL.NEB INH ×2 (06:20→18:48)
[2025-02-18] MEDS: ACET PO ×2 (08:30→21:02)
[2025-02-18] MEDS: HYDRO PO ×2 (08:30→21:02)
[2025-02-18] MEDS: MULTIVITAMIN 1 TAB TABLET PO (08:33)
[2025-02-18] MEDS: guaiFENesin Liq 100 MG/5 ML LIQUID 300 MG PO ×2 (08:33→16:15)
[2025-02-18] MEDS: VITAMIN B COMPLEX PO (08:33)
[2025-02-18] MEDS: FAMOTIDINE 20 MG TABLET PO ×2 (08:33→20:42)
[2025-02-18] MEDS: SENNOSIDES 8.6 MG TABLET PO ×2 (08:33→20:42)
[2025-02-18] MEDS: DEX/HYPRO/GLY ARTIFICAL TEARS 225 DROP/15 ML BTL BOTH EYES ×2 (08:34→20:42)
[2025-02-18] MEDS: AMIODARONE 200 MG TABLET PO (08:34)
[2025-02-18] MEDS: ASCORBIC ACID 500 MG TABLET PO ×2 (08:34→20:42)
[2025-02-18] MEDS: ALPRAZolam 0.5 MG TABLET PO ×2 (12:00→23:39)
[2025-02-18] MEDS: MIDODRINE 10 MG TABLET PO ×2 (12:03→17:31)
--- NOTE | 2025-02-18 16:44 | PC.NURSE ---
Pneumococcal vaccine PCV 20 ordered x 1 dose; consent completed. Resident indicated she wanted to complete pneumococcal vaccines.
[2025-02-18] MEDS: PNEUMOC 20-VAL CONJ-DIP CRM/PF 0.5 ML SYRINGE IMi (17:34)
[2025-02-18] MEDS: CARBAMIDE PEROXIDE OTIC SOL 15 ML BTL 5 DROP BOTH EARS (20:42)
[2025-02-19] VITALS (9 sets, daily range): BP systolic 112–135; BP diastolic 58–67; PULSE 64–79; RESP 14–20; TEMP 36.1; O2SAT 99–100
[2025-02-19] MEDS: guaiFENesin Liq 100 MG/5 ML LIQUID 300 MG PO ×3 (00:05→21:00)
[2025-02-19] MEDS: MIDODRINE 10 MG TABLET PO ×2 (00:30→05:28)
[2025-02-19] MEDS: IPRATROPIUM/ALBUTEROL 3 ML AMPUL.NEB INH ×6 (02:40→22:30)
[2025-02-19] MEDS: BUDESONIDE 0.5 MG/2 ML AMPUL.NEB INH ×2 (06:18→18:23)
[2025-02-19] MEDS: ASCORBIC ACID 500 MG TABLET PO ×2 (09:05→21:01)
[2025-02-19] MEDS: AMIODARONE 200 MG TABLET PO (09:05)
[2025-02-19] MEDS: FAMOTIDINE 20 MG TABLET PO ×2 (09:06→21:02)
[2025-02-19] MEDS: MULTIVITAMIN 1 TAB TABLET PO (09:06)
[2025-02-19] MEDS: CARBAMIDE PEROXIDE OTIC SOL 15 ML BTL 5 DROP BOTH EARS (09:06)
[2025-02-19] MEDS: DEX/HYPRO/GLY ARTIFICAL TEARS 225 DROP/15 ML BTL BOTH EYES ×2 (09:06→21:02)
[2025-02-19] MEDS: SENNOSIDES 8.6 MG TABLET PO ×2 (09:07→21:02)
[2025-02-19] MEDS: VITAMIN B COMPLEX PO (09:07)
[2025-02-19] MEDS: ACET PO (14:33)
[2025-02-19] MEDS: HYDRO PO (14:33)
[2025-02-19] MEDS: ALPRAZolam 0.5 MG TABLET PO (17:15)
[2025-02-20] VITALS (10 sets, daily range): BP systolic 118–122; BP diastolic 62–69; PULSE 63–85; RESP 14–23; TEMP 36.1–36.4; O2SAT 99–100
[2025-02-20] MEDS: MIDODRINE 10 MG TABLET PO ×4 (00:13→23:51)
[2025-02-20] MEDS: IPRATROPIUM/ALBUTEROL 3 ML AMPUL.NEB INH ×6 (02:11→22:02)
[2025-02-20] MEDS: guaiFENesin Liq 100 MG/5 ML LIQUID 300 MG PO ×3 (04:00→19:00)
[2025-02-20] MEDS: BUDESONIDE 0.5 MG/2 ML AMPUL.NEB INH ×2 (06:20→18:28)
[2025-02-20] MEDS: ACET PO ×2 (07:45→23:00)
[2025-02-20] MEDS: HYDRO PO ×2 (07:45→23:00)
[2025-02-20] MEDS: AMIODARONE 200 MG TABLET PO (09:03)
[2025-02-20] MEDS: CARBAMIDE PEROXIDE OTIC SOL 15 ML BTL 5 DROP BOTH EARS (09:04)
[2025-02-20] MEDS: ASCORBIC ACID 500 MG TABLET PO ×2 (09:04→20:08)
[2025-02-20] MEDS: MULTIVITAMIN 1 TAB TABLET PO (09:05)
[2025-02-20] MEDS: DEX/HYPRO/GLY ARTIFICAL TEARS 225 DROP/15 ML BTL BOTH EYES ×2 (09:05→20:08)
[2025-02-20] MEDS: SENNOSIDES 8.6 MG TABLET PO ×2 (09:05→20:08)
[2025-02-20] MEDS: FAMOTIDINE 20 MG TABLET PO ×2 (09:05→20:08)
[2025-02-20] MEDS: VITAMIN B COMPLEX PO (09:06)
[2025-02-20] MEDS: ALPRAZolam 0.5 MG TABLET PO (12:00)
[2025-02-21] VITALS (12 sets, daily range): BP systolic 133–177; BP diastolic 60–83; PULSE 63–102; RESP 15–22; TEMP 36.3–36.8; O2SAT 98–100
[2025-02-21] MEDS: ALPRAZolam 0.5 MG TABLET PO ×2 (01:00→16:15)
[2025-02-21] MEDS: IPRATROPIUM/ALBUTEROL 3 ML AMPUL.NEB INH ×6 (02:00→22:10)
[2025-02-21] MEDS: MIDODRINE 10 MG TABLET PO (05:18)
[2025-02-21] MEDS: AMIODARONE 200 MG TABLET PO (08:59)
[2025-02-21] MEDS: FAMOTIDINE 20 MG TABLET PO ×2 (09:00→22:00)
[2025-02-21] MEDS: DEX/HYPRO/GLY ARTIFICAL TEARS 225 DROP/15 ML BTL BOTH EYES ×2 (09:00→22:00)
[2025-02-21] MEDS: MULTIVITAMIN 1 TAB TABLET PO (09:00)
[2025-02-21] MEDS: ASCORBIC ACID 500 MG TABLET PO ×2 (09:00→22:00)
[2025-02-21] MEDS: SENNOSIDES 8.6 MG TABLET PO ×2 (09:01→22:00)
[2025-02-21] MEDS: VITAMIN B COMPLEX PO (09:01)
[2025-02-21] MEDS: guaiFENesin Liq 100 MG/5 ML LIQUID 300 MG PO ×3 (09:15→23:59)
[2025-02-21] MEDS: HYDRO PO ×2 (09:20→19:41)
[2025-02-21] MEDS: ACET PO ×2 (09:20→19:41)
[2025-02-21] MEDS: BUDESONIDE 0.5 MG/2 ML AMPUL.NEB INH (18:10)
--- NOTE | 2025-02-21 19:35 | PD.SAPROG ---
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 (2) Chronic respiratory failure with hypoxia and hypercapnia: Status: Chronic (3) Ventilator dependent: Status: Chronic (4) Congestive heart failure: Status: Chronic (5) Chronic obstructive pulmonary disease, unspecified: Status: Chronic (6) Atrial fibrillation: Status: Chronic (7) Tracheostomy in place: Status: Chronic (8) Chronic anemia: Status: Chronic SUBJECTIVE Fever:: none GI:: none Shortness of Breath:: unchanged GI:: nausea Pain:: none OBJECTIVE Most recent vital signs: Last Vital Signs Temp 97.5 F 02/21/25 18:00 Pulse 85 02/21/25 18:10 Resp 15 02/21/25 18:10 BP 177/83 H 02/21/25 18:00 Pulse Ox 99 02/21/25 18:10 O2 Del Method Mechanical Ventilation 02/18/25 06:00 FiO2 40 02/21/25 18:10 Neurological:: alert Speech:: nods head, mouths words and appropriate Answers questions:: yes Respiratory:: shallow breathing and rhonchi Cardiovascular: irregular Abdomen: soft Tracheostomy:: to ventilator Feeding per:: po ASSESSMENT & PLAN Assessment: stable. Tolerating ventilatory support. Not weanable because of generalized weakness. Tolerating feeding. Prognosis is very guarded. Patient aware. Tracheostomy revision done surgically. Psychotropics: Xanax 0.5 mgs bid has really done well to settle her anxiety. no side effects seen. She does not do well on lower titration of anxiety meds. No new issues. Had a bedside conversation on quality of life and end of life care at pt's request. Pt remains comfortable on current meds. 08-11-24 had a detailed conversation with pt's son about progressively worsening condition as expected in end stage COPD ventilator dependent and now more weak/inability to thrive. Code status was discussed and the extremely poor prognosis. 08-16-24 Pt's Hb was critical and hence ordered two units packed rbcs. Pt was in no distress. Post infusion levels are improved. No new complaints 09-23-24: She had an episode of being less responsive today but recovered quickly and blood gases checked stat which were normal ph 7.43, but PaO2 was low at 50mm Hg and saturations were good at 97%. Recently transferred to the ER for respiratory distress and dropping O2 saturations. Received back with diagnosis of Pneumonia and on antibiotics. stable and no fever. Regular tracheostomy change was difficult for the respiratroy tech and hence request to Gen. surgeon made and needful done, Now stable. No complaints. VSS . O2 saturations good on FiO2 of 45%. Pt maintaining good temperament and content. Pt decided against Tracheostomy revision which was scheduled by surgery and hence cancelled. Comfortable. Anxiety medicine not being used often hence decreased to q 12 hrly prn. tolerating it well. Pt's son visits her from time to time in person and kept updated. Tolerating her feeding well.mostly cheerful, VSS. No new issues Plan: Current treatment as well as ventilator settings reviewed and continued.
--- NOTE | 2025-02-21 22:19 | PC.RT ---
hme changed again per nurse there was condensation in circuit draining to HmE, pip pressures alarming in the 60s, humidifier had to be turn off due to continuous accumulating condensation in the curcuit and hme, nurse made aware, no distress noted pip pressures improved to the 20s.
[2025-02-22] VITALS (13 sets, daily range): BP systolic 98–129; BP diastolic 60–73; PULSE 53–99; RESP 15–20; TEMP 36.1–36.5; O2SAT 95–99
[2025-02-22] MEDS: IPRATROPIUM/ALBUTEROL 3 ML AMPUL.NEB INH ×6 (02:39→22:00)
[2025-02-22] MEDS: ALPRAZolam 0.5 MG TABLET PO ×2 (05:22→17:25)
[2025-02-22] MEDS: MIDODRINE 10 MG TABLET PO ×2 (05:23→11:28)
[2025-02-22] MEDS: BUDESONIDE 0.5 MG/2 ML AMPUL.NEB INH ×2 (06:07→18:23)
[2025-02-22] MEDS: FAMOTIDINE 20 MG TABLET PO ×2 (09:38→21:38)
[2025-02-22] MEDS: DEX/HYPRO/GLY ARTIFICAL TEARS 225 DROP/15 ML BTL BOTH EYES ×2 (09:38→21:37)
[2025-02-22] MEDS: AMIODARONE 200 MG TABLET PO (09:38)
[2025-02-22] MEDS: MULTIVITAMIN 1 TAB TABLET PO (09:38)
[2025-02-22] MEDS: ASCORBIC ACID 500 MG TABLET PO ×2 (09:38→21:37)
[2025-02-22] MEDS: SENNOSIDES 8.6 MG TABLET PO ×2 (09:38→21:38)
[2025-02-22] MEDS: VITAMIN B COMPLEX PO (09:39)
[2025-02-22] MEDS: ACETAMINOPHEN 325 MG TABLET 650 MG PO (11:30)
[2025-02-22] MEDS: guaiFENesin Liq 100 MG/5 ML LIQUID 300 MG PO (17:25)
[2025-02-22] MEDS: ACET PO (22:00)
[2025-02-22] MEDS: HYDRO PO (22:00)
[2025-02-23] VITALS (14 sets, daily range): BP systolic 103–137; BP diastolic 58–74; PULSE 63–88; RESP 14–20; TEMP 35.9–36.4; O2SAT 98–100
[2025-02-23] MEDS: MIDODRINE 10 MG TABLET PO ×3 (00:15→17:14)
[2025-02-23] MEDS: IPRATROPIUM/ALBUTEROL 3 ML AMPUL.NEB INH ×6 (02:10→22:00)
[2025-02-23] MEDS: guaiFENesin Liq 100 MG/5 ML LIQUID 300 MG PO ×3 (05:00→20:00)
[2025-02-23] MEDS: BUDESONIDE 0.5 MG/2 ML AMPUL.NEB INH ×2 (06:12→17:55)
[2025-02-23] MEDS: ACET PO ×2 (07:47→20:00)
[2025-02-23] MEDS: HYDRO PO ×2 (07:47→20:00)
[2025-02-23] MEDS: AMIODARONE 200 MG TABLET PO (09:13)
[2025-02-23] MEDS: ASCORBIC ACID 500 MG TABLET PO ×2 (09:13→20:11)
[2025-02-23] MEDS: FAMOTIDINE 20 MG TABLET PO ×2 (09:14→20:12)
[2025-02-23] MEDS: DEX/HYPRO/GLY ARTIFICAL TEARS 225 DROP/15 ML BTL BOTH EYES ×2 (09:14→20:11)
[2025-02-23] MEDS: MULTIVITAMIN 1 TAB TABLET PO (09:14)
[2025-02-23] MEDS: VITAMIN B COMPLEX PO (09:14)
[2025-02-23] MEDS: SENNOSIDES 8.6 MG TABLET PO ×2 (09:14→20:12)
[2025-02-23] MEDS: ALPRAZolam 0.5 MG TABLET PO (14:40)
[2025-02-23] MEDS: MAG HYDROX/ALUMINUM HYD/SIMETH 355 ML BTL 30 ML PO (15:33)
[2025-02-24] VITALS (12 sets, daily range): BP systolic 117–163; BP diastolic 66–75; PULSE 63–94; RESP 17–22; TEMP 36.2–36.9; O2SAT 98–100
[2025-02-24] MEDS: MIDODRINE 10 MG TABLET PO ×2 (00:51→17:00)
[2025-02-24] MEDS: ALPRAZolam 0.5 MG TABLET PO ×2 (02:00→21:30)
[2025-02-24] MEDS: IPRATROPIUM/ALBUTEROL 3 ML AMPUL.NEB INH ×6 (03:00→22:09)
[2025-02-24] MEDS: BUDESONIDE 0.5 MG/2 ML AMPUL.NEB INH ×2 (06:30→19:07)
[2025-02-24] MEDS: AMIODARONE 200 MG TABLET PO (09:19)
[2025-02-24] MEDS: ASCORBIC ACID 500 MG TABLET PO ×2 (09:19→21:11)
[2025-02-24] MEDS: DEX/HYPRO/GLY ARTIFICAL TEARS 225 DROP/15 ML BTL BOTH EYES ×2 (09:19→21:11)
[2025-02-24] MEDS: MULTIVITAMIN 1 TAB TABLET PO (09:19)
[2025-02-24] MEDS: FAMOTIDINE 20 MG TABLET PO ×2 (09:19→21:12)
[2025-02-24] MEDS: SENNOSIDES 8.6 MG TABLET PO ×2 (09:20→21:12)
[2025-02-24] MEDS: VITAMIN B COMPLEX PO (09:20)
[2025-02-24] MEDS: MAGNESIUM HYDROXIDE 30 ML ORAL SUSP ML PO (09:21)
[2025-02-24] MEDS: HYDRO PO ×2 (09:25→18:43)
[2025-02-24] MEDS: ACET PO ×2 (09:25→18:43)
--- NOTE | 2025-02-24 15:16 | PC.SS ---
Room visit: Resident is laying in bed with head of the bed elevated with call light properly placed with no signs of distress. Resident has clear speech she is able to make needs known, her healthcare proxy is her son Francisco Javier. Resident remains on ventilator with trach in place and GT for medication and nutrition. Resident will continue to have all subacute care needs. This SSD will continue to make daily contact with resident and will monitor for changes in mood and behavior.
[2025-02-24] MEDS: guaiFENesin Liq 100 MG/5 ML LIQUID 300 MG PO ×2 (15:27→21:10)
[2025-02-25] VITALS (13 sets, daily range): BP systolic 100–129; BP diastolic 63–73; PULSE 64–82; RESP 14–19; TEMP 36–36.4; O2SAT 96–100
[2025-02-25] MEDS: MIDODRINE 10 MG TABLET PO ×3 (00:36→12:10)
[2025-02-25] MEDS: HYDRO PO ×2 (04:30→20:38)
[2025-02-25] MEDS: ACET PO ×2 (04:30→20:38)
[2025-02-25] MEDS: IPRATROPIUM/ALBUTEROL 3 ML AMPUL.NEB INH ×5 (06:33→23:11)
[2025-02-25] MEDS: BUDESONIDE 0.5 MG/2 ML AMPUL.NEB INH ×2 (06:33→18:10)
[2025-02-25] MEDS: AMIODARONE 200 MG TABLET PO (09:45)
[2025-02-25] MEDS: DEX/HYPRO/GLY ARTIFICAL TEARS 225 DROP/15 ML BTL BOTH EYES ×2 (09:46→20:38)
[2025-02-25] MEDS: ASCORBIC ACID 500 MG TABLET PO ×2 (09:46→20:38)
[2025-02-25] MEDS: SENNOSIDES 8.6 MG TABLET PO ×2 (09:46→20:38)
[2025-02-25] MEDS: VITAMIN B COMPLEX PO (09:46)
[2025-02-25] MEDS: FAMOTIDINE 20 MG TABLET PO ×2 (09:46→20:38)
[2025-02-25] MEDS: MULTIVITAMIN 1 TAB TABLET PO (09:46)
[2025-02-25] MEDS: ALPRAZolam 0.5 MG TABLET PO (16:30)
[2025-02-25] MEDS: guaiFENesin Liq 100 MG/5 ML LIQUID 300 MG PO (20:37)
[2025-02-26] VITALS (14 sets, daily range): BP systolic 118–151; BP diastolic 65–78; PULSE 64–95; RESP 15–26; TEMP 36.1–36.6; O2SAT 97–100
[2025-02-26] MEDS: IPRATROPIUM/ALBUTEROL 3 ML AMPUL.NEB INH ×6 (02:08→22:11)
[2025-02-26] MEDS: ACETAMINOPHEN 325 MG TABLET 650 MG PO (03:48)
[2025-02-26] MEDS: guaiFENesin Liq 100 MG/5 ML LIQUID 300 MG PO ×3 (03:48→22:30)
[2025-02-26] MEDS: MIDODRINE 10 MG TABLET PO (05:05)
[2025-02-26] MEDS: HYDRO PO ×3 (05:06→23:30)
[2025-02-26] MEDS: ACET PO ×3 (05:06→23:30)
[2025-02-26] MEDS: BUDESONIDE 0.5 MG/2 ML AMPUL.NEB INH ×2 (06:12→18:15)
[2025-02-26] MEDS: ASCORBIC ACID 500 MG TABLET PO ×2 (09:51→20:18)
[2025-02-26] MEDS: FAMOTIDINE 20 MG TABLET PO ×2 (09:51→20:18)
[2025-02-26] MEDS: MULTIVITAMIN 1 TAB TABLET PO (09:51)
[2025-02-26] MEDS: DEX/HYPRO/GLY ARTIFICAL TEARS 225 DROP/15 ML BTL BOTH EYES ×2 (09:51→20:18)
[2025-02-26] MEDS: AMIODARONE 200 MG TABLET PO (09:51)
[2025-02-26] MEDS: VITAMIN B COMPLEX PO (09:51)
[2025-02-26] MEDS: SENNOSIDES 8.6 MG TABLET PO ×2 (09:51→20:18)
[2025-02-26] MEDS: ALPRAZolam 0.5 MG TABLET PO (14:30)
--- NOTE | 2025-02-26 17:14 | PC.NURSE ---
Late entry for event occurred at 1430. RT found resident with trach out. Re-inserted a new trach without complications. VS initiated 189/100, 101, 26 RR. Xanasx given for anxiety after event. Will re-assess Vital signs in 1 hour and [id number] x24 hours. Notified MD and resident's family.
--- NOTE | 2025-02-26 18:34 | PC.NURSE ---
This nurse waited all shift until resident was stable to change her wound dressing to her sacrum/ coccyx. Pt refused stated I'm too short of breath. Vital signs at 1700: 97.9, 83, 17, 151/77 Spo2 99%. Ventilator settings AC 14 TV 525 FI02 40%. Resident requested RT frequently this shift for SOB. Respiratory TXs administered Q4 hrs as scheduled by RT. Pt was medicated with PRN medications Xanax @1430, Norvell & guiafenesin @ 1515. Call light within reach.
--- NOTE | 2025-02-26 19:55 | PD.SAPROG ---
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 (2) Chronic respiratory failure with hypoxia and hypercapnia: Status: Chronic (3) Ventilator dependent: Status: Chronic (4) Congestive heart failure: Status: Chronic (5) Chronic obstructive pulmonary disease, unspecified: Status: Chronic (6) Atrial fibrillation: Status: Chronic (7) Tracheostomy in place: Status: Chronic (8) Chronic anemia: Status: Chronic SUBJECTIVE Fever:: none GI:: none Shortness of Breath:: unchanged GI:: nausea Pain:: none OBJECTIVE Most recent vital signs: Last Vital Signs Temp 97.9 F 02/26/25 18:00 Pulse 83 02/26/25 18:00 Resp 17 02/26/25 18:00 BP 151/77 H 02/26/25 18:00 Pulse Ox 99 02/26/25 18:00 O2 Del Method Mechanical Ventilation 02/25/25 06:00 FiO2 40 02/26/25 12:41 Neurological:: alert Speech:: nods head, mouths words and appropriate Answers questions:: yes Respiratory:: shallow breathing and rhonchi Cardiovascular: irregular Abdomen: soft Tracheostomy:: to ventilator Feeding per:: po ASSESSMENT & PLAN Assessment: stable. Tolerating ventilatory support. Not weanable because of generalized weakness. Tolerating feeding. Prognosis is very guarded. Patient aware. Tracheostomy revision done surgically. Psychotropics: Xanax 0.5 mgs bid has really done well to settle her anxiety. no side effects seen. She does not do well on lower titration of anxiety meds. No new issues. Had a bedside conversation on quality of life and end of life care at pt's request. Pt remains comfortable on current meds. 08-11-24 had a detailed conversation with pt's son about progressively worsening condition as expected in end stage COPD ventilator dependent and now more weak/inability to thrive. Code status was discussed and the extremely poor prognosis. 08-16-24 Pt's Hb was critical and hence ordered two units packed rbcs. Pt was in no distress. Post infusion levels are improved. No new complaints 09-23-24: She had an episode of being less responsive today but recovered quickly and blood gases checked stat which were normal ph 7.43, but PaO2 was low at 50mm Hg and saturations were good at 97%. Recently transferred to the ER for respiratory distress and dropping O2 saturations. Received back with diagnosis of Pneumonia and on antibiotics. stable and no fever. Regular tracheostomy change was difficult for the respiratroy tech and hence request to Gen. surgeon made and needful done, Now stable. No complaints. VSS . O2 saturations good on FiO2 of 45%. Pt maintaining good temperament and content. Pt decided against Tracheostomy revision which was scheduled by surgery and hence cancelled. Comfortable. Anxiety medicine not being used often hence decreased to q 12 hrly prn. tolerating it well. Pt's son visits her from time to time in person and kept updated. Tolerating her feeding well.mostly cheerful, VSS. No new issues Plan: Current treatment as well as ventilator settings reviewed and continued.
[2025-02-26] MEDS: ONDANSETRON HCL 4 MG TABLET PO (20:17)
[2025-02-27] VITALS (11 sets, daily range): BP systolic 107–154; BP diastolic 58–82; PULSE 76–103; RESP 15–21; TEMP 36.4–36.5; O2SAT 96–99
[2025-02-27] MEDS: IPRATROPIUM/ALBUTEROL 3 ML AMPUL.NEB INH ×6 (02:20→22:07)
[2025-02-27] MEDS: ALPRAZolam 0.5 MG TABLET PO (02:40)
[2025-02-27] MEDS: MIDODRINE 10 MG TABLET PO (05:34)
[2025-02-27] MEDS: BUDESONIDE 0.5 MG/2 ML AMPUL.NEB INH ×2 (06:15→18:13)
[2025-02-27] MEDS: ONDANSETRON HCL 4 MG TABLET PO ×2 (07:33→18:30)
[2025-02-27] MEDS: AMIODARONE 200 MG TABLET PO (09:34)
[2025-02-27] MEDS: DEX/HYPRO/GLY ARTIFICAL TEARS 225 DROP/15 ML BTL BOTH EYES ×2 (09:35→21:04)
[2025-02-27] MEDS: ASCORBIC ACID 500 MG TABLET PO ×2 (09:35→21:04)
[2025-02-27] MEDS: SENNOSIDES 8.6 MG TABLET PO ×2 (09:37→21:05)
[2025-02-27] MEDS: FAMOTIDINE 20 MG TABLET PO ×2 (09:37→21:04)
[2025-02-27] MEDS: MULTIVITAMIN 1 TAB TABLET PO (09:38)
[2025-02-27] MEDS: VITAMIN B COMPLEX PO (09:38)
[2025-02-27] MEDS: HYDRO PO (11:00)
[2025-02-27] MEDS: ACET PO (11:00)
[2025-02-27] MEDS: guaiFENesin Liq 100 MG/5 ML LIQUID 300 MG PO (17:00)
--- NOTE | 2025-02-27 19:25 | PC.NURSE ---
Resident is awake and alert this am, complaining of having an upset stomach, refused breakfast. was given zofran, will continue to monitor resident.
[2025-02-28] VITALS (12 sets, daily range): BP systolic 93–165; BP diastolic 54–76; PULSE 73–100; RESP 14–22; TEMP 36.3–36.8; O2SAT 97–100
[2025-02-28] MEDS: MIDODRINE 10 MG TABLET PO ×3 (00:12→23:41)
[2025-02-28] MEDS: guaiFENesin Liq 100 MG/5 ML LIQUID 300 MG PO ×4 (01:11→23:45)
[2025-02-28] MEDS: IPRATROPIUM/ALBUTEROL 3 ML AMPUL.NEB INH ×6 (02:00→23:00)
[2025-02-28] MEDS: BUDESONIDE 0.5 MG/2 ML AMPUL.NEB INH ×2 (07:14→17:39)
[2025-02-28] MEDS: ASCORBIC ACID 500 MG TABLET PO ×2 (09:49→20:20)
[2025-02-28] MEDS: VITAMIN B COMPLEX PO (09:49)
[2025-02-28] MEDS: MULTIVITAMIN 1 TAB TABLET PO (09:49)
[2025-02-28] MEDS: AMIODARONE 200 MG TABLET PO (09:49)
[2025-02-28] MEDS: DEX/HYPRO/GLY ARTIFICAL TEARS 225 DROP/15 ML BTL BOTH EYES ×2 (09:49→20:21)
[2025-02-28] MEDS: FAMOTIDINE 20 MG TABLET PO ×2 (09:49→20:21)
[2025-02-28] MEDS: SENNOSIDES 8.6 MG TABLET PO ×2 (09:49→20:21)
--- NOTE | 2025-02-28 16:27 | PC.NURSE ---
Pt refused wound care to sacrum/ coccyx this shift. This nurse asked resident if she was ready to have wound dressing change and she stated No .
[2025-02-28] MEDS: ALPRAZolam 0.5 MG TABLET PO (20:20)
[2025-03-01] VITALS (14 sets, daily range): BP systolic 97–111; BP diastolic 54–71; PULSE 68–101; RESP 15–21; TEMP 36.1–36.6; O2SAT 98–100
[2025-03-01] MEDS: IPRATROPIUM/ALBUTEROL 3 ML AMPUL.NEB INH ×5 (02:38→22:10)
[2025-03-01] MEDS: MIDODRINE 10 MG TABLET PO ×3 (05:18→17:14)
[2025-03-01] MEDS: BUDESONIDE 0.5 MG/2 ML AMPUL.NEB INH ×2 (06:05→18:31)
[2025-03-01] MEDS: DEX/HYPRO/GLY ARTIFICAL TEARS 225 DROP/15 ML BTL BOTH EYES ×2 (08:59→20:05)
[2025-03-01] MEDS: AMIODARONE 200 MG TABLET PO (08:59)
[2025-03-01] MEDS: FAMOTIDINE 20 MG TABLET PO ×2 (08:59→20:06)
[2025-03-01] MEDS: ASCORBIC ACID 500 MG TABLET PO ×2 (08:59→20:05)
[2025-03-01] MEDS: VITAMIN B COMPLEX PO (09:00)
[2025-03-01] MEDS: MULTIVITAMIN 1 TAB TABLET PO (09:00)
[2025-03-01] MEDS: SENNOSIDES 8.6 MG TABLET PO ×2 (09:00→20:06)
[2025-03-01] MEDS: guaiFENesin Liq 100 MG/5 ML LIQUID 300 MG PO ×2 (09:25→20:00)
[2025-03-01] MEDS: ACETAMINOPHEN 325 MG TABLET 650 MG PO ×2 (10:25→17:55)
[2025-03-01] MEDS: ALPRAZolam 0.5 MG TABLET PO ×2 (10:40→22:15)
[2025-03-02] VITALS (13 sets, daily range): BP systolic 113–130; BP diastolic 65–71; PULSE 61–89; RESP 15–22; TEMP 36.1–36.5; O2SAT 98–100
[2025-03-02] MEDS: MIDODRINE 10 MG TABLET PO ×3 (00:47→11:10)
[2025-03-02] MEDS: IPRATROPIUM/ALBUTEROL 3 ML AMPUL.NEB INH ×6 (02:04→22:08)
[2025-03-02] MEDS: guaiFENesin Liq 100 MG/5 ML LIQUID 300 MG PO ×2 (05:00→20:00)
[2025-03-02] MEDS: ACET PO ×2 (05:15→17:40)
[2025-03-02] MEDS: HYDRO PO ×2 (05:15→17:40)
[2025-03-02] MEDS: BUDESONIDE 0.5 MG/2 ML AMPUL.NEB INH ×2 (06:28→18:24)
[2025-03-02] MEDS: ASCORBIC ACID 500 MG TABLET PO ×2 (08:14→20:31)
[2025-03-02] MEDS: DEX/HYPRO/GLY ARTIFICAL TEARS 225 DROP/15 ML BTL BOTH EYES ×2 (08:14→20:32)
[2025-03-02] MEDS: AMIODARONE 200 MG TABLET PO (08:14)
[2025-03-02] MEDS: FAMOTIDINE 20 MG TABLET PO ×2 (08:15→20:32)
[2025-03-02] MEDS: MULTIVITAMIN 1 TAB TABLET PO (08:15)
[2025-03-02] MEDS: SENNOSIDES 8.6 MG TABLET PO ×2 (08:15→20:32)
[2025-03-02] MEDS: VITAMIN B COMPLEX PO (08:16)
[2025-03-02] MEDS: ALPRAZolam 0.5 MG TABLET PO ×2 (12:00→23:30)
--- NOTE | 2025-03-02 20:48 | PD.SAPROG ---
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 (2) Chronic respiratory failure with hypoxia and hypercapnia: Status: Chronic (3) Ventilator dependent: Status: Chronic (4) Congestive heart failure: Status: Chronic (5) Chronic obstructive pulmonary disease, unspecified: Status: Chronic (6) Atrial fibrillation: Status: Chronic (7) Tracheostomy in place: Status: Chronic (8) Chronic anemia: Status: Chronic SUBJECTIVE Fever:: none GI:: none Shortness of Breath:: unchanged GI:: nausea Pain:: none OBJECTIVE Most recent vital signs: Last Vital Signs Temp 97.0 F 03/02/25 17:03 Pulse 76 03/02/25 17:03 Resp 16 03/02/25 17:03 BP 130/65 03/02/25 17:03 Pulse Ox 99 03/02/25 14:03 O2 Del Method Mechanical Ventilation 03/02/25 10:56 O2 Flow Rate 99 03/02/25 14:03 FiO2 40 03/02/25 14:03 Neurological:: alert Speech:: nods head, mouths words and appropriate Answers questions:: yes Respiratory:: shallow breathing and rhonchi Cardiovascular: irregular Abdomen: soft Tracheostomy:: to ventilator Feeding per:: po ASSESSMENT & PLAN Assessment: stable. Tolerating ventilatory support. Not weanable because of generalized weakness. Tolerating feeding. Prognosis is very guarded. Patient aware. Tracheostomy revision done surgically. Psychotropics: Xanax 0.5 mgs bid has really done well to settle her anxiety. no side effects seen. She does not do well on lower titration of anxiety meds. No new issues. Had a bedside conversation on quality of life and end of life care at pt's request. Pt remains comfortable on current meds. 08-11-24 had a detailed conversation with pt's son about progressively worsening condition as expected in end stage COPD ventilator dependent and now more weak/inability to thrive. Code status was discussed and the extremely poor prognosis. 08-16-24 Pt's Hb was critical and hence ordered two units packed rbcs. Pt was in no distress. Post infusion levels are improved. No new complaints 09-23-24: She had an episode of being less responsive today but recovered quickly and blood gases checked stat which were normal ph 7.43, but PaO2 was low at 50mm Hg and saturations were good at 97%. Recently transferred to the ER for respiratory distress and dropping O2 saturations. Received back with diagnosis of Pneumonia and on antibiotics. stable and no fever. Regular tracheostomy change was difficult for the respiratroy tech and hence request to Gen. surgeon made and needful done, Now stable. No complaints. VSS . O2 saturations good on FiO2 of 45%. Pt maintaining good temperament and content. Pt decided against Tracheostomy revision which was scheduled by surgery and hence cancelled. Comfortable. Anxiety medicine not being used often hence decreased to q 12 hrly prn. tolerating it well. Pt's son visits her from time to time in person and kept updated. Tolerating her feeding well.mostly cheerful, VSS. No new issues Plan: Current treatment as well as ventilator settings reviewed and continued.
[2025-03-02] MEDS: ONDANSETRON HCL 4 MG TABLET PO (21:30)
[2025-03-03] VITALS (10 sets, daily range): BP systolic 90–144; BP diastolic 52–76; PULSE 63–80; RESP 14–26; TEMP 36.3–36.7; O2SAT 99–100
[2025-03-03] MEDS: IPRATROPIUM/ALBUTEROL 3 ML AMPUL.NEB INH ×5 (02:42→18:08)
[2025-03-03] MEDS: HYDRO PO (04:45)
[2025-03-03] MEDS: ACET PO (04:45)
[2025-03-03] MEDS: MIDODRINE 10 MG TABLET PO ×3 (05:00→17:03)
[2025-03-03] MEDS: SENNOSIDES 8.6 MG TABLET PO ×2 (08:05→21:13)
[2025-03-03] MEDS: VITAMIN B COMPLEX PO (08:05)
[2025-03-03] MEDS: MULTIVITAMIN 1 TAB TABLET PO (08:05)
[2025-03-03] MEDS: DEX/HYPRO/GLY ARTIFICAL TEARS 225 DROP/15 ML BTL BOTH EYES ×2 (08:05→21:13)
[2025-03-03] MEDS: ASCORBIC ACID 500 MG TABLET PO ×2 (08:05→21:12)
[2025-03-03] MEDS: FAMOTIDINE 20 MG TABLET PO ×2 (08:05→21:13)
[2025-03-03] MEDS: ACETAMINOPHEN 325 MG TABLET 650 MG PO (12:08)
--- NOTE | 2025-03-03 14:31 | PC.SS ---
Room visit: Resident is laying in bed with head of the bed elevated with call light properly placed with no signs of distress. Resident is alert and oriented able to make needs known, she is represented by her son. Resident will remain in current care as she has no changes in care or condition. She remains on ventilator with trach in place and GT for medication and nutrition. This SSD will continue to make daily contact with resident and will offer support as needed.
[2025-03-03] MEDS: ALPRAZolam 0.5 MG TABLET PO (17:46)
[2025-03-03] MEDS: BUDESONIDE 0.5 MG/2 ML AMPUL.NEB INH (18:09)
[2025-03-04] VITALS (11 sets, daily range): BP systolic 102–128; BP diastolic 52–69; PULSE 65–77; RESP 14–20; TEMP 36.4–36.8; O2SAT 95–100
[2025-03-04] MEDS: IPRATROPIUM/ALBUTEROL 3 ML AMPUL.NEB INH ×7 (00:02→23:00)
[2025-03-04] MEDS: MIDODRINE 10 MG TABLET PO ×3 (00:15→12:27)
[2025-03-04] MEDS: HYDRO PO ×2 (00:30→13:23)
[2025-03-04] MEDS: ACET PO ×2 (00:30→13:23)
[2025-03-04] MEDS: guaiFENesin Liq 100 MG/5 ML LIQUID 300 MG PO ×2 (00:30→07:48)
[2025-03-04] MEDS: BUDESONIDE 0.5 MG/2 ML AMPUL.NEB INH ×2 (07:09→18:27)
[2025-03-04] MEDS: ALPRAZolam 0.5 MG TABLET PO (07:49)
[2025-03-04] MEDS: AMIODARONE 200 MG TABLET PO (09:59)
[2025-03-04] MEDS: MULTIVITAMIN 1 TAB TABLET PO (10:00)
[2025-03-04] MEDS: ASCORBIC ACID 500 MG TABLET PO ×2 (10:00→20:48)
[2025-03-04] MEDS: FAMOTIDINE 20 MG TABLET PO ×2 (10:00→20:48)
[2025-03-04] MEDS: DEX/HYPRO/GLY ARTIFICAL TEARS 225 DROP/15 ML BTL BOTH EYES ×2 (10:00→20:48)
[2025-03-04] MEDS: SENNOSIDES 8.6 MG TABLET PO ×2 (10:00→21:00)
[2025-03-04] MEDS: VITAMIN B COMPLEX PO (10:01)
[2025-03-05] VITALS (10 sets, daily range): BP systolic 113–135; BP diastolic 62–66; PULSE 69–87; RESP 14–19; TEMP 36.5–36.6; O2SAT 96–100
[2025-03-05] MEDS: ALPRAZolam 0.5 MG TABLET PO ×2 (00:30→12:10)
[2025-03-05] MEDS: MIDODRINE 10 MG TABLET PO ×4 (00:58→23:57)
[2025-03-05] MEDS: IPRATROPIUM/ALBUTEROL 3 ML AMPUL.NEB INH ×6 (02:03→22:17)
[2025-03-05] MEDS: BUDESONIDE 0.5 MG/2 ML AMPUL.NEB INH ×2 (07:13→18:30)
[2025-03-05] MEDS: AMIODARONE 200 MG TABLET PO (09:44)
[2025-03-05] MEDS: FAMOTIDINE 20 MG TABLET PO ×2 (09:45→20:11)
[2025-03-05] MEDS: MULTIVITAMIN 1 TAB TABLET PO (09:45)
[2025-03-05] MEDS: ASCORBIC ACID 500 MG TABLET PO ×2 (09:45→20:12)
[2025-03-05] MEDS: VITAMIN B COMPLEX PO (09:46)
[2025-03-05] MEDS: guaiFENesin Liq 100 MG/5 ML LIQUID 300 MG PO (10:30)
[2025-03-05] MEDS: SENNOSIDES 8.6 MG TABLET PO (20:11)
[2025-03-05] MEDS: HYDRO PO (20:12)
[2025-03-05] MEDS: ACET PO (20:12)
[2025-03-05] MEDS: DEX/HYPRO/GLY ARTIFICAL TEARS 225 DROP/15 ML BTL BOTH EYES (20:39)
[2025-03-06] VITALS (14 sets, daily range): BP systolic 103–126; BP diastolic 61–72; PULSE 62–89; RESP 14–24; TEMP 36.1–36.4; O2SAT 97–100
[2025-03-06] MEDS: IPRATROPIUM/ALBUTEROL 3 ML AMPUL.NEB INH ×6 (01:56→22:08)
[2025-03-06] MEDS: BUDESONIDE 0.5 MG/2 ML AMPUL.NEB INH ×2 (06:35→18:31)
[2025-03-06] MEDS: AMIODARONE 200 MG TABLET PO (08:30)
[2025-03-06] MEDS: FAMOTIDINE 20 MG TABLET PO ×2 (08:31→21:00)
[2025-03-06] MEDS: DEX/HYPRO/GLY ARTIFICAL TEARS 225 DROP/15 ML BTL BOTH EYES ×2 (08:31→21:01)
[2025-03-06] MEDS: ASCORBIC ACID 500 MG TABLET PO ×2 (08:31→21:00)
[2025-03-06] MEDS: MULTIVITAMIN 1 TAB TABLET PO (08:32)
[2025-03-06] MEDS: SENNOSIDES 8.6 MG TABLET PO ×2 (08:33→21:00)
[2025-03-06] MEDS: MIDODRINE 10 MG TABLET PO ×3 (11:54→23:25)
[2025-03-06] MEDS: ALPRAZolam 0.5 MG TABLET PO (12:40)
[2025-03-07] VITALS: BP 108/53; PULSE 67; RESP 16; TEMP 36.2
[2025-03-07 00:48] VITALS: PULSE 69; RESP 16; O2SAT 99
[2025-03-07] MEDS: IPRATROPIUM/ALBUTEROL 3 ML AMPUL.NEB INH (02:35)
[2025-03-07 02:36] VITALS: PULSE 72; RESP 18; O2SAT 100
[2025-03-07] MEDS: HYDRO PO (05:32)
[2025-03-07] MEDS: ACET PO (05:32)
[2025-03-07 06:00] VITALS: BP 133/65; PULSE 63; RESP 18; TEMP 36.1
--- NOTE | 2025-03-07 07:39 | PC.NURSE ---
MACHINE II TRIMMER called this nurse to room at 0623- resident noted to be pale and cold to the touch, pulse checked, no pulse noted, code blue called at 0624, cold blue team worked on patient, pulse was detected and send to ER at [phone], AMINTA Mcintyre made aware of event and made aware.
--- NOTE | 2025-03-07 08:00 | PC.RT ---
RT CALLED AT 626 TO COME TO PT ROOM, UPON ARRIVAL RT ESTHER GIVING PPV. PT DUSKY IN COLOR, NO PULKSE DETECTED. RT VANESSA BEGAN COMPRESSIONS AND CRASH CART WAS RETRIEVED. RT ESTHER VOCALIZING DIFFICULTY IN BAGGING RT VANESSA CHECKED TRACH AND TRACH WAS OUT. VANESSA REINSERTED TRACH, DIFFICULTY REPLACING, BLOOD NOTED. PADS ATTACHED BY RT VANESSA AND RESUMED CPR. SEE CODE SHEET
--- NOTE | 2025-03-07 09:40 | PC.NURSE ---
All 0900 medications not given to pt due to resident was transfered to ED. S/P Code Blue unresponsive
--- NOTE | 2025-03-13 12:00 | DES_ITS ---
Documentation for date of: 03/13/25 Summary Date and Time Date of admission: 02/24/24 13:14 Date of : 03/12/25 Time of : 17:44 Summary Hospital Course: Patient is a 70 years old female with past medical history of end-stage COPD status post tracheostomy, atrial fibrillation on amiodarone, chronic anemia who presented from subacute after cardiac arrest and subsequent ROSC. Since she was initially admitted to ICU for management of, s/p cardiac arrest with prolonged downtime. She was also hypertensive with cardiac arrest and was started on Levophed gtt. She continued to be on mechanical ventilator. She was also found to have a UTI and sepsis secondary to it. She was started on broad-spectrum antibiotics as well. Initial head CT was negative for acute hemorrhage, mass effect or midline shift, showed small age-indeterminate bilateral basal ganglia infarcts. While in the ICU, patient was withdrawing to pain, had corneal reflex and was opening her eyes but was unclear if she is doing it spontaneously or on command. Patient's blood pressure improved, she was off of Levophed drip. She started appearing to be more responsive and was transferred to medical floor on 03/09/2025. In telemetry, patient continued to have stable blood pressure. She was continued on amiodarone. Patient was withdrawing for painful stimuli but still eye-opening was unclear if uncommon versus spontaneous. Did not track with her eyes and did not follow commands. Next day, patient become less responsive, noted to have bilateral upgoing Babinski reflex, neurology consult was obtained, EEG and brain MRI were ordered. Patient also had hyponatremia, and was started on free water flushes and D5W. Patient's brain MRI showed b ilateral severe ischemic/anoxic changes EEG was abnormal as well, showed diffuse slowing suggestive of diffuse encephalopathy of metabolic, degenerative or vascular origin consistent with hypoxic brain injury. Discussed with neurology, agreed that patient has anoxic brain injury and prognosis is poor. Discussed with family in detail regarding goals of care, family decided to change the CODE STATUS to DNR/DNI on 03/11/2025. Decided to go against any invasive procedure from thereon. On 03/12/2025, had a discussion with rest of the family members, explained in detail about her medical condition, ongoing management, guarded prognosis. Family member decided to start comfort care measures. Comfort care was started with withdrawal of aggressive medical management. Patient passed on 03/12/2025 at 17:44 PM. #Acute encephalopathy following cardiac arrest with prolonged down time #Anoxic brain injury, severe #Hypernatremia #Status post cardiac arrest. #Afib. #Hypotension, resolved. #End stage COPD s/p tracheostomy. #Mechanically ventilated. #Sepsis 2/2 UTI. #PEG tube feeds. #Chronic anemia Additional Data Confirmation of as documented by pronouncing clinician: no pulse, no respirations, no heart sounds and pupils fixed and dilated Family: at bedside Additional persons at bedside: other (RN) Attending/PCP notified?: Yes Attending physician: Francisco Javier Miguel MD Was code activated?: No Autopsy requested?: No Hospice patient?: No Visit Providers Provider Primary care physician: Tico Salazar MD Consults: 02/24/24 15:13 Referral Nutritional Services Routine Comment: Instructions: stage 4 sacrum Referral Wound Care Routine Comment: Instructions: Stage 4 sacrum, return from Acute care 03/08/24 15:57 Referral Physical Therapy Routine Comment: PT re-eval Physician Instructions: Instructions: For mobility and transferring safely from bed to chair. 03/15/24 08:00 Consult to Podiatry Routine Comment: Consulting Provider: Instructions: Add visit with Dr. Jaeger on Friday06/14/24 08:38 Consult to Podiatry Routine Comment: add podiatry consult Consulting Provider: [place] Jaeger 06/14/24 16:44 Consult to General Surgery Routine Comment: Subacute patient room 115 Consulting Provider: Fermin Egan Instructions: Please consult for possible trach revision. Patient wears size 8 shiley cuffed trach. Most recent during monthly trach change RT was unable to retrieve trach to replace it. found resistance. Dr. Salazar would like a consult. 07/06/24 18:33 Referral Wound Care Routine Comment: Instructions: trach site ( just like theres a jennifer tear ) 09/09/24 04:38 Referral Wound Care Routine Comment: Instructions: Hypergranulation to trach site 09/17/24 14:34 Consult to Podiatry Routine Comment: Consulting Provider: 09/20/24 10:24 Consult to Optometry Routine Comment: Consulting Provider: 12/03/24 09:40 Consult to Podiatry Routine Comment: right great toe ingrown toenail Consulting Provider: 02/04/25 11:26 Referral Physical Therapy Routine Comment: Physician Instructions: Instructions: to assess RNA program 02/08/25 09:01 Referral Wound Care Routine Comment: Instructions: continued care to sacrum stage 4 Discharge Plan Problem List Was Problem List Reviewed/Reconciled?: Yes Plan Patient Disposition: Prescriptions/Referrals Prescriptions/Med Rec: No Action multivitamin Tablet 1 tab PO QAM sennosides [senna] 8.6 mg Tablet 8.6 mg PO BID ipratropium-albuterol [DuoNeb] 0.5 mg-3 mg(2.5 mg base)/3 mL Solution For Nebulization 3 ml INHALATION Q4H PRN (Reason: Wheezing) hydrocodone-acetaminophen [[place]] 5-325 mg Tablet 1 tab PO Q8H PRN (Reason: Pain) guaifenesin [Nilsa-Tussin] 100 mg/5 mL Liquid 200 mg PO Q6H PRN (Reason: Cough) ascorbic acid (vitamin C) [Vitamin C] 500 mg Tablet 500 mg PO BID bisacodyl [Dulcolax (bisacodyl)] 10 mg Suppository 10 mg WA QDAY PRN (Reason: Constipation) budesonide [Pulmicort] 0.5 mg/2 mL Suspension For Nebulization 0.5 mg INHALATION BID vitamin B complex Tablet 1 tab PO QDAY amiodarone 200 mg tablet 200 mg PO QDAY famotidine 20 mg tablet 20 mg PO BID midodrine 10 mg tablet 10 mg PO QID acetaminophen [Tylenol] 325 mg Tablet 650 mg PO Q6H PRN (Reason: Fever Or Pain) alprazolam 0.5 mg tablet 0.5 mg PO Q12H PRN (Reason: Anxiety) guaifenesin 100 mg/5 mL Syrup 100 mg PO Q6H PRN (Reason: Cough) polyethylene glycol 3350 [Miralax] 17 gram/dose powder 17 g PO QDAY PRN (Reason: constipation) GenTeal Tears Mild 0.1-0.3 % drops 1 drp ophthalmic (eye) BID PRN (Reason: dry eye(s)) bisacodyl [Dulcolax (bisacodyl)] 10 mg suppository 10 mg WA QDAY PRN (Reason: constipation) alum-mag hydroxide-simeth [Nilsa-Lanta] 200-200-20 mg/5 mL suspension 30 ml PO DAILY magnesium hydroxide [Milk of Magnesia] 400 mg/5 mL suspension 30 ml PO DAILY PRN (Reason: constipation) Referrals: Tico Salazar MD [Primary Care Provider] - Patient/Caregiver Discharge Instructions Print Language: British
== END | disposition expired | DRG 207 ==
PROVIDERS: Surgery; Admitting Provider Specialist; PCP Specialist; Visit Provider Specialist
DX: J96.11 Chronic respiratory failure with hypoxia (principal); J18.9 Pneumonia, unspecified organism; N39.0 Urinary tract infection, site not specified; J44.0 Chronic obstructive pulmonary disease with (acute) lower respiratory infection; J95.03 Malfunction of tracheostomy stoma; J95.09 Other tracheostomy complication; I48.20 Chronic atrial fibrillation, unspecified; Z99.11 Dependence on respirator [ventilator] status; J96.12 Chronic respiratory failure with hypercapnia; D64.9 Anemia, unspecified; J44.9 Chronic obstructive pulmonary disease, unspecified; I50.9 Heart failure, unspecified; B19.20 Unspecified viral hepatitis C without hepatic coma; F41.9 Anxiety disorder, unspecified; D72.829 Elevated white blood cell count, unspecified; L92.8 Other granulomatous disorders of the skin and subcutaneous tissue; R79.89 Other specified abnormal findings of blood chemistry; Z66 Do not resuscitate; R19.7 Diarrhea, unspecified; Z53.20 Procedure and treatment not carried out because of patient's decision for unspecified reasons; Z93.0 Tracheostomy status; Z23 Encounter for immunization; Z93.1 Gastrostomy status; Z87.891 Personal history of nicotine dependence; Y83.2 Surgical operation with anastomosis, bypass or graft as the cause of abnormal reaction of the patient, or of later complication, without mention of misadventure at the time of the procedure; Y92.238 Other place in hospital as the place of occurrence of the external cause
CPT/HCPCS: 36415; 36430; 36600; 70360; 71045; 80048; 80053; 81001; 82803; 83880; 84145; 85025; 85610; 86850; 86900; 86901; 86923; 87040; 87077; 87086; 87184; 87186; 87205; 87502; 87811; 93005; 94002; 94004; 94640; 94762; J0171; P9016